=== PATIENT | female | born 1955 | race Caucasian/White ===

== ENCOUNTER → 2024-11-17 | Outpatient (CLI) | payer OTHER, SELFPAY ==
[2024-11-17 18:00] LABS: Hematocrit 32.0 % (37-47); Hemoglobin 10.2 g/dL (12.0-15.0); Mean Corp Hgb Conc 31.9 g/dL (32-36); Mean Corpuscular Volume 94.4 fL (81-99); Mean Platelet Vol. 12.6 fl (6.2-12.0); Platelet Count 108 K/mm3 (150-450); RBC Distribution Width CV 16.5 % (11.6-14.6); RBC Distribution Width SD 57.1 fl (35.1-43.9); Red Blood Count 3.39 M/mm3 (4.2-5.4); White Blood Count 6.7 K/mm3 (4.4-11.0)
[2024-11-17 18:06] LABS: Prothrombin Time (Protime)PT. 13.2 SECONDS (11.7-14.9)
[2024-11-17 18:07] LABS: Partial Thromboplast Time 33.8 Seconds (24.1-36.2)
[2024-11-17 18:25] LABS: AST(SGOT) 110 U/L (<=31); Alanine Aminotransfer ALT/SGPT 97 U/L (<=34); Albumin, Serum 3.7 g/dL (3.4-4.8); Alkaline Phosphatase 131 U/L (35-104); BUN 39 mg/dL (4-19); BUN/Creat Ratio 18.6 RATIO (10-20); Calcium,Total 11.9 mg/dL (7.6-11.0); Globulin 3.2 g/dL (2.2-4.2); Glucose 106 mg/dL (70-99)
[2024-11-17 18:26] LABS: Anion Gap 16 (5-15); CRP 128.00 mg/L (0.0-3.0); Carbon Dioxide 26.0 mmol/L (21.0-32.0); Chloride 100 mmol/L (98-108); Potassium 3.5 mmol/L (3.3-5.1)
[2024-11-19 15:09] LABS: Immunoglobulin A 193 mg/dL (87-352)
== END | disposition home or self-care (01) ==
LOC: MTLAB 14:48
PROVIDERS: PCP Nurse Practitioner Family; Referring Provider Internal Medicine Gastroenterology; Visit Provider Internal Medicine Gastroenterology
DX: K90.0 Celiac disease (principal); R16.0 Hepatomegaly, not elsewhere classified
CPT/HCPCS: 36415; 80053; 82784; 83516; 85027; 85610; 85652; 85730; 86140; 86255

== ENCOUNTER 2024-12-07 12:36 | Emergency (ER) | payer OTHER, SELFPAY ==
[2024-12-07 12:37] VITALS: BP 126/78; PULSE 101; RESP 18; TEMP 36.1; O2SAT 98
[2024-12-07 13:14] VITALS: BP 120/72; BP 123/73; BP 130/70; PULSE 93; PULSE 99
[2024-12-07 13:27] LABS: Prothrombin Time (Protime)PT. 13.5 SECONDS (11.7-14.9)
[2024-12-07 13:29] LABS: Hematocrit 30.5 % (37-47); Hemoglobin 9.4 g/dL (12.0-15.0); Immature Granulocytes Count 0.030 X10^3/uL (0.0-0.0); Mean Corp Hgb Conc 30.8 g/dL (32-36); Mean Corpuscular Volume 97.1 fL (81-99); Mean Platelet Vol. 10.7 fl (6.2-12.0); NRBC Flagged by Analyzer 0 % (0-5); POSITIVE COUNT YES; Platelet Count 88 K/mm3 (150-450); RBC Distribution Width CV 17.1 % (11.6-14.6); RBC Distribution Width SD 59.6 fl (35.1-43.9); Red Blood Count 3.14 M/mm3 (4.2-5.4); White Blood Count 4.6 K/mm3 (4.4-11.0)
[2024-12-07 13:30] LABS: Differential Indicated SCAN CRITERIA MET
[2024-12-07 13:37] VITALS: BP 127/68; PULSE 91; RESP 15; O2SAT 98
[2024-12-07 13:42] LABS: AST(SGOT) 121 U/L (<=31); Alanine Aminotransfer ALT/SGPT 99 U/L (<=34); Albumin, Serum 3.4 g/dL (3.4-4.8); Alkaline Phosphatase 189 U/L (35-104); Anion Gap 15 (5-15); BUN 28 mg/dL (4-19); BUN/Creat Ratio 22.6 RATIO (10-20); CRP 56.00 mg/L (0.0-3.0); Calcium,Total 10.6 mg/dL (7.6-11.0); Carbon Dioxide 25.6 mmol/L (21.0-32.0); Chloride 101 mmol/L (98-108); Estimated Creatinine Clearance 1.68 ml/min (50-250); Globulin 2.9 g/dL (2.2-4.2); Glucose 90 mg/dL (70-99); Potassium 3.9 mmol/L (3.3-5.1)
[2024-12-07 14:00] VITALS: BP 127/68; PULSE 93; RESP 24; O2SAT 96
[2024-12-07 14:39] VITALS: BP 127/68; PULSE 93; RESP 24; TEMP 36.1; O2SAT 96
[2024-12-07 15:00] VITALS: BP 131/72; PULSE 78; O2SAT 98
--- NOTE | 2024-12-07 15:02 | EX.ED.DYSGE1 ---
HPI History of Present Illness Chief Complaint: Fatigue Detail of Chief Complaint: Patient sent in for fatigue, weight loss, worsening renal function, abdomin Informant: patient Onset/Context/Timing Onset: Month(s) Context: Gradual Onset Timing: Intermittent and Waxes and wanes Quality: Abdominal distention, discomfort, and multiple other symptoms Location: Multiple Current Severity: Mild Maximum Severity: Moderate Worsened by: Nothing Relieved by: Nothing Associated Symptoms Associated Symptoms: HPI narrative Narrative Narrative: Patient is a 68-year-old woman. She has history of weight loss, night sweats, abdominal distention, portal hypertension, bilateral edema, stage IV kidney disease and left renal renal stone. She was sent in for her pain. She was seen at [facility] physicians. Patient is scheduled for an MRI this coming Saturday. Patient stated she was told she did have a hematology consult. There was a note attached to her chart. Apparently she was seen 2 weeks ago and there was concern for T-cell l lymphoma. Patient had unintentional weight loss. She complains of fatigue, abdominal bloating. She denies change in color, consistency or caliber of her stool. She denies frequency of bowel movements. She denies urologic symptoms. She denies dark-colored urine. She denies bone pain. She does not report night sweats. She denies headache, visual, ocular auditory symptoms. She has trouble with speech or swallowing. She denies chest pain, pressure, tightness or heaviness. She denies dyspnea or [place] exertion. Denies orthopnea or PND. She does report swelling of her ankles recently. Patient has no history of alcohol use or cirrhosis. Prior similar symptoms: Yes Recent Illness/Hospitalization: Yes (Seen by PCP approximately 2 weeks ago. Her creatinine at that time was faisal) [facility] Medical History Depression Emphysema lung COPD (chronic obstructive pulmonary disease) Postmenopausal Lymph node enlargement IBS (irritable bowel syndrome) Positive colorectal cancer screening using Cologuard test Anemia Acute distention of stomach Abdominal pain Celiac disease Hypertension Vitamin D deficiency Splenomegaly Home Medications ?Medication ?Instructions ?Recorded ?Last Taken ?Type cholecalciferol (vitamin D3) 1,250 1,250 mcg PO QMONTH BONE [employer] 11/26/24 11/25/24 History mcg (50,000 unit) capsule lisinopril 10 1 tab PO QDAY BLOOD PRESSURE 11/26/24 12/07/24 History mg-hydrochlorothiazide 12.5 mg tablet vitamin B complex 1 tab PO QDAY FOR ENERGY 11/26/24 12/06/24 History mv-mn [id number] 1 tab PO DAILY SUPPLEMENT 12/07/24 12/06/24 History pantoprazole 40 mg tablet,delayed 40 mg PO DAILY STOMACH 12/07/24 12/06/24 History release Allergy/AdvReac Type Severity Reaction Status Date / Time moxifloxacin (From Avelox) Allergy Unknown unknown Verified 12/07/24 12:37 terbinafine Allergy Unknown rash Verified 12/07/24 12:37 Family History Father Alcohol abuse Mother Heart disease Depression Social History Smoking Status: Current every day smoker tobacco type: cigarettes alcohol intake: never ROS ROS ED Constitutional Constitutional ED: Reports sweats and weight loss; Denies chills, fever(s) or subjective Eyes Eyes: Denies blurry vision, change in vision or diplopia ENT ENT ED: Denies ear pain, rhinorrhea or sore throat Cardiovascular Cardiovascular: Denies chest pain, orthopnea, palpitations, paroxysmal nocturnal dyspnea or racing heartbeat Respiratory/Chest Respiratory/Chest: Reports cough and other Details: Patient is 1/4 pack/day smoker. She does and [place] nonproductive cough. ; Denies dyspnea, dyspnea on exertion, orthopnea, paroxysmal nocturnal dyspnea or sputum Gastrointestinal Gastrointestinal: Reports abdominal pain; Denies constipation, diarrhea, melena, nausea or vomiting Genitourinary Genitourinary ED: Denies dysuria, hematuria or urinary frequency Musculoskeletal Musculoskeletal: Denies arthralgias, back pain, myalgias or neck pain Integumentary Denies rash Neurologic Neurologic: Reports weakness; Denies headache(s) or paresthesias Endocrine Endocrinology: Denies cold intolerance or heat intolerance Hematologic/Lymphatic Hematologic/Lymphatic: Reports systems reviewed and no addt'l complaints, except as documented EXAM Physical Exam Const Vital Signs: 12/07/24 12:37 12/07/24 12:47 12/07/24 13:14 Temperature 97 F L Temperature Source Temporal Pulse Rate 101 H Pulse Rate [Lying] 93 Pulse Rate [Sitting (for 1 minute prior to obtaining)] 99 Pulse Rate [Standing (for 1 minute prior to obtaining)] 99 Respiratory Rate 18 Respiratory Effort Normal Non-Labored Respiratory Pattern Normal Blood Pressure 126/78 H Blood Pressure [Lying] 130/70 H Blood Pressure [Sitting (for 1 minute prior to obtaining)] 120/72 Blood Pressure [Standing (for 1 minute prior to obtaining)] 123/73 H Blood Pressure Mean 94 Blood Pressure Mean [Lying] 90 Blood Pressure Mean [Sitting (for 1 minute prior to obtaining)] 88 Blood Pressure Mean [Standing (for 1 minute prior to obtaining)] 89 Pulse Ox 98 Oxygen Delivery Method Room Air 12/07/24 13:37 12/07/24 14:00 12/07/24 14:39 Temperature 97 F L Temperature Source Pulse Rate 91 93 93 Pulse Rate [Lying] Pulse Rate [Sitting (for 1 minute prior to obtaining)] Pulse Rate [Standing (for 1 minute prior to obtaining)] Respiratory Rate 15 24 H 24 H Respiratory Effort Respiratory Pattern Blood Pressure 127/68 H 127/68 H 127/68 H Blood Pressure [Lying] Blood Pressure [Sitting (for 1 minute prior to obtaining)] Blood Pressure [Standing (for 1 minute prior to obtaining)] Blood Pressure Mean 87 87 87 Blood Pressure Mean [Lying] Blood Pressure Mean [Sitting (for 1 minute prior to obtaining)] Blood Pressure Mean [Standing (for 1 minute prior to obtaining)] Pulse Ox 98 96 96 Oxygen Delivery Method Room Air Room Air 12/07/24 15:00 Temperature Temperature Source Pulse Rate 78 Pulse Rate [Lying] Pulse Rate [Sitting (for 1 minute prior to obtaining)] Pulse Rate [Standing (for 1 minute prior to obtaining)] Respiratory Rate Respiratory Effort Respiratory Pattern Blood Pressure 131/72 H Blood Pressure [Lying] Blood Pressure [Sitting (for 1 minute prior to obtaining)] Blood Pressure [Standing (for 1 minute prior to obtaining)] Blood Pressure Mean 91 Blood Pressure Mean [Lying] Blood Pressure Mean [Sitting (for 1 minute prior to obtaining)] Blood Pressure Mean [Standing (for 1 minute prior to obtaining)] Pulse Ox 98 Oxygen Delivery Method Room Air Positive well nourished and well developed Constitutional Narrative: Patient appears pale. She is thin. She appears in no obvious distress. General Appearance ED: well developed and pallor HEENT Reports moist mucous membranes HEENT Narrative: Head is atraumatic normocephalic. Ears normal. Posterior pharynx is normal Eyes PERRL and EOMs intact bilaterally Eyes Narrative: Conjunctive is slightly pale. There is slight pink noted. General Eye ED: Negative for scleral icterus Neck no lymphadenopathy, supple and no JVD Chest Wall inspection of chest normal and palpation of chest normal Resp normal respiratory effort and clear to auscultation bilaterally Cardio regular rate, regular rhythm, S1 normal heart sound, S2 normal heart sound and no murmurs GI non-distended and no masses; Negative for non-tender GI Narrative: Patient has diffuse tenderness. I do not appreciate hepatosplenomegaly. There is no guarding or peritoneal findings. Inspection: Negative for abdominal distention Auscultation: hypoactive bowel sounds Palpation: soft Back/Spine no CVA tenderness Extremity General Extremety ED: Yes edema General Extremity: edema Neuro oriented x3 and CN's II-XII intact bilaterally Sensorium / Orientation: alert Psych Mood & Affect: depressed Skin no rashes or lesions noted, no wounds and No skin turgor normal General Skin Exam: pallor; Negative for jaundice MDM MDM MDM Narrative Medical decision making narrative: Differential diagnosis is abdominal pain of unknown etiology, malignancy, she does have portal hypotension. Clinically she does not have ascites. Clinically she appears anemic. Will obtain CBC to assess H&H as well as white count. Competence of metabolic panel to assess liver enzymes and electrolytes as well as renal function. Show she had elevated inflammatory markers will obtain and compare to prior. History & Record Review Additional record(s) reviewed:: Prior labs Lab Data Attestation: I reviewed the patient's lab results. Lab results narrative: CBC reveals normocytic anemia with an H&H of 9.4 and 30.5 which is slightly lower than what was noted November. Comprehensive metabolic panel reveals slight elevation of BUN and creatinine of 28 and 1.25 with an estimated GFR 47. This is an improvement from prior. BUN to creatinine ratio slight elevated 22-1. AST and ALT are elevated respectively at 121 and 99. C-reactive proteins elevated and essentially baseline for her. Labs: Laboratory Results - last 24 hr 12/07/24 13:05 WBC 4.6 RBC 3.14 L Hgb 9.4 L Hct 30.5 L MCV 97.1 MCH 29.9 MCHC 30.8 L RDW Std Deviation 59.6 H RDW Coeff of Jeffery 17.1 H Plt Count 88 L MPV 10.7 Immature Gran % (Auto) 0.700 Neut % (Auto) 63.7 Lymph % (Auto) 17.7 L Rooks % (Auto) 15.3 H Eos % (Auto) 1.1 Baso % (Auto) 1.5 H Absolute Neuts (auto) 2.9 Absolute Lymphs (auto) 0.81 L Nucleated RBC % 0 Platelet Estimate MOD DEC ESR 8 PT 13.5 INR 1.0 Sodium 142 Potassium 3.9 Chloride 101 Carbon Dioxide 25.6 Anion Gap 15 BUN 28 H Creatinine 1.25 H Estim Creat Clear Calc 1.68 L* Est GFR (MDRD) Non-Af 47 L BUN/Creatinine Ratio 22.6 H Glucose 90 Calcium 10.6 Total Bilirubin 0.73 AST 121 H ALT 99 H Alkaline Phosphatase 189 H C-React Prot Ext Range 56.00 H Total Protein 6.3 Albumin 3.4 Globulin 2.9 Albumin/Globulin Ratio 1.2 Treatment and Re-Evaluation :: Patient was informed since her BUN/creatinine have improved, there is no significant change in her H&H and she is hemodynamically stable her workup can be done as an outpatient and she should keep her scheduled appointment for MRI and depending on results will need referral to hematology oncology or GI versus general surgery. Patient thought she was going to be seen by hematology in the emergency department. Patient was informed since her labs are not not significant changed she does not meet criteria for admission and that her workup can be completed as an outpatient and that that her practitioner can make appropriate arrangements pending results of MRI. Discharge Plan Triage Chief Complaint: Fatigue ED Provider: Crispin Subramanian Dx/Rx/DC Orders Clinical Impression: Abdominal pain of unknown cause, Chronic renal insufficiency, Anemia, Acute prerenal azotemia, Elevated liver enzymes, Unintentional weight loss of 5% body weight or less within 1 month, Night sweats, Hypertension, Hypertension, portal, Lymphedema of both lower extremities Instructions: ED Abdominal Pain Unkn Cause Fem Prescriptions: No Action vitamin B complex Tablet 1 tab PO QDAY lisinopril-hydrochlorothiazide 10-12.5 mg tablet 1 tab PO QDAY cholecalciferol (vitamin D3) 1,250 mcg (50,000 unit) capsule 1,250 mcg PO QMONTH pantoprazole 40 mg tablet,delayed release (DR/EC) 40 mg PO DAILY mv-mn [id number] [Centrum ] 1 tab PO DAILY Primary Care Provider: Vidal Ling NP Referrals: Vidal Ling NP, DATA COORDINATOR-C [Primary Care Provider, Family Practice] - 1-2 Weeks Activity Restrictions/Additional Instructions: Keep appointment for outpatient MRI. Print Language: Sinhala Disposition Disposition: Home, Self Care Discharge Date/Time: 12/07/24 15:05
== END 2024-12-07 15:05 | disposition home or self-care (01) ==
PROVIDERS: Emergency Provider Emergency Medicine; PCP Nurse Practitioner Family; Visit Provider Emergency Medicine
DX: R10.9 Unspecified abdominal pain (principal); K76.6 Portal hypertension; R63.4 Abnormal weight loss; R53.83 Other fatigue; R14.0 Abdominal distension (gaseous); D63.1 Anemia in chronic kidney disease; F17.210 Nicotine dependence, cigarettes, uncomplicated; R05.9 Cough, unspecified; I89.0 Lymphedema, not elsewhere classified; R61 Generalized hyperhidrosis
CPT/HCPCS: 80053; 85025; 85610; 85652; 86140; 99285; A4216

== ENCOUNTER → 2024-12-29 | Outpatient (CLI) | payer OTHER, SELFPAY ==
[2024-12-29 11:48] LABS: Pathology Sent to OSU SEE PATHOLOGY REPORT
== END | disposition home or self-care (01) ==
LOC: LABSPEC 11:31
PROVIDERS: PCP Nurse Practitioner Family; Referring Provider Surgery; Visit Provider Surgery
DX: R16.1 Splenomegaly, not elsewhere classified (principal); D64.9 Anemia, unspecified; R59.9 Enlarged lymph nodes, unspecified

== ENCOUNTER → 2025-01-06 | Outpatient (CLI) | payer OTHER, SELFPAY ==
--- NOTE | 2025-01-06 16:41 | CT_ITS ---
PROCEDURE: CT/Chest WITH Contrast
== END | disposition home or self-care (01) ==
LOC: CT 16:41
PROVIDERS: PCP Nurse Practitioner Family; Referring Provider Internal Medicine Hematology & Oncology; Visit Provider Internal Medicine Hematology & Oncology
DX: R59.1 Generalized enlarged lymph nodes (principal); R16.1 Splenomegaly, not elsewhere classified
CPT/HCPCS: 71260; Q9967

== ENCOUNTER 2025-01-21 10:31 | Day surgery (SDC) | payer OTHER, SELFPAY ==
--- NOTE | 2025-01-20 13:55 | PAT.ANESEVAL ---
Pre-Assessment Diagnosis/Proposed Procedure Planned Operative Procedure(s): (R) Insertion, Vascular Port right poss left Anesthesia History Anesthesia History - molecular modeler: Anesthesia History - molecular modeler Hx Hospitalization No 01/20/25 09:07 Any Problems With Anesthesia No 01/20/25 09:07 Cholinesterase deficiency No 01/20/25 09:07 You/Your Family Experience No 01/20/25 09:07 fever (hyperthermia) with Relationship Recent Exposure to Contagious Disease Does patient have nerve No 01/20/25 09:07 stimulator Patient instructed to have device shut off --Does patient have Pacemaker or ICD? When Was Last Pacemaker Check QUESTION #4 FULL TEXT: You/Your Family Experience fever (hyperthermia) with Anesthesia Last Oral Intake Last Oral intake: Last Oral Intake NPO since Meds taken in AM with sips of water? Meds patient instructed to take am of surgery PONV PONV - molecular modeler: PONV - molecular modeler Female Yes 01/20/25 09:07 HX of Motion Sickness No 01/20/25 09:07 HX of N/V After Surgery No 01/20/25 09:07 Non-Smoker Yes 01/20/25 09:07 Duration of Surgery greater No 01/20/25 09:07 than 60 minutes Number of Risk Factors 2 01/20/25 09:07 PONV Score Moderate Risk 01/20/25 09:07 Height & Weight Height & Weight: Anesthesia: Height & Weight Height 5 ft 6 in 01/15/25 12:39 Respiratory Assessment Respiratory Assessment - molecular modeler: Respiratory Tract Infection Hx - molecular modeler Hx Respiratory Tract Infection No 01/20/25 09:07 STOP Sleep Apnea STOP Sleep Apnea - molecular modeler: STOP Sleep Apnea - molecular modeler Hx Hypertension Yes: PT STATES DR HAD HER 01/20/25 09:07 STOP MEDS Hx Sleep Apnea No 01/20/25 09:07 CPAP BIPAP Do you snore loudly (louder No 01/20/25 09:07 than talking or can be heard Do you often feel tired/ No 01/20/25 09:07 fatigued/ sleepy during daytime? Has anyone observed you stop No 01/20/25 09:07 breathing during sleep? STOP Results Negative 01/20/25 09:07 QUESTION #5 FULL TEXT : Do you snore loudly (louder than talking or can be heard through closed doors)? Tobacco Use History Tobacco Use History - molecular modeler: Tobacco Use History - molecular modeler Tobacco Use Smoking Status Former smoker 01/20/25 09:07 Hx Tobacco Use Yes 01/20/25 09:07 Years Smoking Packs Smoked per Day Smoking Cessation Date was Yes - quit smoking within 15 01/20/25 09:07 within the last 15 years years Hx Smoking Cessation Date Hx Smoking Cessation No 01/20/25 09:07 Counseling Hematologic Medial History Hematologic Hx - molecular modeler: Hematologic Medical Hx - bronc breaker Hx of Blood Transfusion No 01/20/25 09:07 Hx of Transfusion in last 3 No 01/20/25 09:07 Months Date of Last Transfusion (if within last 3 months) Ever experience any problems No 01/20/25 09:07 with transfusion(s)? Specify any problems Hx of Preganancy in last 3 N/A 01/20/25 09:07 Months Nurse Filling Out Transfusion NBUCHER 01/20/25 09:07 & Questions: Date: 01/20/25 01/20/25 09:07 Time: 09:09 01/20/25 09:07 Patient unable to answer at this time (ie. confused, unrespo /Reproduction History /Reproductive History - molecular modeler: /Reproductive Hx- molecular modeler Hx Now No 01/20/25 09:07 Gestational Age (in weeks): EDC: Hx Hx Para Hx Section SAB No 01/20/25 09:07 Does the father of the baby or his family experience fever w Father of the baby Malignant Hypertension history comment Active Medications Active Medications: Current Medications Generic Name Dose Route Start Last Admin Trade Name Freq PRN Reason Stop Dose Admin Cefazolin Sodium 2 gm/ Sodium 110 mls @ 200 mls/hr 01/21/25 07:00 Chloride IV 01/21/25 07:32 INTRAOP ONE [facility] Medical History (Updated 01/20/25 @ 09:16 by Lore Willson) Wears glasses Cancer History of renal disease Heartburn Gastric reflux Former smoker History of edema Hypokalemia Encounter for education 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 Depression Emphysema lung COPD (chronic obstructive pulmonary disease) Postmenopausal IBS (irritable bowel syndrome) Positive colorectal cancer screening using Cologuard test Anemia Acute distention of stomach Abdominal pain Hypertension Vitamin D deficiency Splenomegaly Home Medications ?Medication ?Instructions ?Recorded ?Last Taken ?Type cholecalciferol (vitamin D3) 1,250 1,250 mcg PO QMONTH [facility] 11/26/24 11/25/24 History mcg (50,000 unit) capsule vitamin B complex 1 tab PO QDAY FOR ENERGY 11/26/24 12/06/24 History mv-mn [id number] 1 tab PO DAILY SUPPLEMENT 12/07/24 12/06/24 History pantoprazole 40 mg tablet,delayed 40 mg PO DAILY STOMACH 12/07/24 12/06/24 History release allopurinol 300 mg tablet 300 mg PO QDAY #7 tabs 01/14/25 Unknown Rx lidocaine-prilocaine 2.5 %-2.5 % 1 applic topical ONCE PRN port 01/14/25 Unknown Rx topical cream access 30 days #30 grams ondansetron 8 mg disintegrating 8 mg PO Q8H PRN nausea and 01/14/25 Unknown Rx tablet vomiting #30 tabs potassium chloride 20 mEq 20 meq PO DAILY #3 tabs 01/14/25 Unknown Rx tablet,extended release(part/cryst) Allergy/AdvReac Type Severity Reaction Status Date / Time moxifloxacin (From Avelox) Allergy Unknown unknown Verified 01/20/25 09:06 terbinafine Allergy Unknown rash Verified 01/20/25 09:06 Family History Father Alcohol abuse Mother Heart disease Depression Surgical History (Updated 01/20/25 @ 09:16 by Lore Willson) History of dental surgery Social History Smoking Status: Former smoker Tobacco: How many years used: 50 alcohol intake: never substance use type: does not use Audit: Pertinent Findings Pertinent Findings Additional pertinent findings: January 11, 2025. Hemoglobin is 10.2. Potassium is 3.2. Recommendation Anesthesia Recommendation Anesthesia recommendation: OPTIMIZED for anesthesia
[2025-01-21] VITALS (8 sets, daily range): BP systolic 86–114; BP diastolic 48–63; PULSE 65–103; RESP 16–18; TEMP 36–37.1; O2SAT 93–97; BMI 19.6
--- NOTE | 2025-01-21 10:44 | PRE.ANES_ITS ---
ASA Classification* ASA Classification ASA Classification: 3 Assessment & Plan Anesthesia* Anesthesia Assessment Anesthesia Assessment: Discussed sedation and/or anesthesia options, risks, benefits, and alternatives with patient/parents/legal guardian/POA. Questions invited. The patient/parents/legal guardian/POA seems to understand and agrees to proceed with anesthesia plan. Reviewed the physical assessment, medical history, allergy history and patient home medications list prior to surgery/procedure/anesthetic and documented any changes. Performed airway and anesthesia risk assessments. Anesthesia Type Anesthesia Type: MAC Anesthesia Focused Assessment* Airway Assessment Mouth opens: >3 cm Mallampati Score: II Labs Anesthesia Preop lab: CBC WBC, (4.4-11.0) 4.1 K/mm3 L 01/11/25, 14: RBC, (4.2-5.4) 3.20 M/mm3 L 01/11/25, 14:06 Hgb, (12.0-15.0) 10.2 g/dL L 01/11/25, 14:06 Hct, (37-47) 32.9 % L 01/11/25, 14:06 Plt Count, (150-450) 74 K/mm3 L 01/11/25, 14:06 CHEMISTRY Potassium, (3.3-5.1) 3.2 mmol/L L 01/14/25, 14:26 Sodium, (133-145) 144 mmol/L 01/14/25, 14:26 Magnesium, (1.5-2.2) 1.8 mg/dL 12/22/24, 15:34 Phosphorus, (2.7-4.5) 2.8 mg/dL 12/22/24, 15:34 BUN, (4-19) 24 mg/dL H 01/14/25, 14:26 Creatinine, (0.70-1.20) 1.15 mg/dL 01/14/25, 14:26 Glucose, (70-99) 81 mg/dL 01/14/25, 14:26 COAG PT, (11.7-14.9) 13.5 SECONDS 12/07/24, 13:05 Pre-Assessment Diagnosis/Proposed Procedure Planned Operative Procedure(s): (R) Insertion, Vascular Port right poss left Anesthesia History Anesthesia History - manager research and development: Anesthesia History - manager research and development Hx Hospitalization No 01/20/25 09:07 Any Problems With Anesthesia No 01/20/25 09:07 Cholinesterase deficiency No 01/20/25 09:07 You/Your Family Experience No 01/20/25 09:07 fever (hyperthermia) with Relationship Recent Exposure to Contagious Disease Does patient have nerve No 01/20/25 09:07 stimulator Patient instructed to have device shut off --Does patient have Pacemaker or ICD? When Was Last Pacemaker Check QUESTION #4 FULL TEXT: You/Your Family Experience fever (hyperthermia) with Anesthesia Last Oral Intake Last Oral intake: Last Oral Intake NPO since Meds taken in AM with sips of water? Meds patient instructed to take am of surgery PONV PONV - manager research and development: PONV - manager research and development Female Yes 01/20/25 09:07 HX of Motion Sickness No 01/20/25 09:07 HX of N/V After Surgery No 01/20/25 09:07 Non-Smoker Yes 01/20/25 09:07 Duration of Surgery greater No 01/20/25 09:07 than 60 minutes Number of Risk Factors 2 01/20/25 09:07 PONV Score Moderate Risk 01/20/25 09:07 Height & Weight Height & Weight: Anesthesia: Height & Weight Height 5 ft 6 in 01/15/25 12:39 Respiratory Assessment Respiratory Assessment - manager research and development: Respiratory Tract Infection Hx - manager research and development Hx Respiratory Tract Infection No 01/20/25 09:07 STOP Sleep Apnea STOP Sleep Apnea - manager research and development: STOP Sleep Apnea - manager research and development Hx Hypertension Yes: PT STATES DR HAD HER 01/20/25 09:07 STOP MEDS Hx Sleep Apnea No 01/20/25 09:07 CPAP BIPAP Do you snore loudly (louder No 01/20/25 09:07 than talking or can be heard Do you often feel tired/ No 01/20/25 09:07 fatigued/ sleepy during daytime? Has anyone observed you stop No 01/20/25 09:07 breathing during sleep? STOP Results Negative 01/20/25 09:07 QUESTION #5 FULL TEXT : Do you snore loudly (louder than talking or can be heard through closed doors)? Tobacco Use History Tobacco Use History - manager research and development: Tobacco Use History - manager research and development Tobacco Use Smoking Status Former smoker 01/20/25 09:07 Hx Tobacco Use Yes 01/20/25 09:07 Years Smoking Packs Smoked per Day Smoking Cessation Date was Yes - quit smoking within 15 01/20/25 09:07 within the last 15 years years Hx Smoking Cessation Date Hx Smoking Cessation No 01/20/25 09:07 Counseling Hematologic Medial History Hematologic Hx - manager research and development: Hematologic Medical Hx - manager apple Hx of Blood Transfusion No 01/20/25 09:07 Hx of Transfusion in last 3 No 01/20/25 09:07 Months Date of Last Transfusion (if within last 3 months) Ever experience any problems No 01/20/25 09:07 with transfusion(s)? Specify any problems Hx of Preganancy in last 3 N/A 01/20/25 09:07 Months Nurse Filling Out Transfusion NBUCHER 01/20/25 09:07 & Questions: Date: 01/20/25 01/20/25 09:07 Time: 09:01/20/25 09:07 Patient unable to answer at this time (ie. 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 Depression Emphysema lung COPD (chronic obstructive pulmonary disease) Postmenopausal IBS (irritable bowel syndrome) Positive colorectal cancer screening using Cologuard test Anemia Acute distention of stomach Abdominal pain Hypertension Vitamin D deficiency Splenomegaly Home Medications ?Medication ?Instructions ?Recorded ?Last Taken ?Type cholecalciferol (vitamin D3) 1,250 1,250 mcg PO QMONTH [facility] 11/26/24 11/25/24 History mcg (50,000 unit) capsule vitamin B complex 1 tab PO QDAY FOR ENERGY 12/06/24 History mv-mn [id number] 1 tab PO DAILY SUPPLEMEN T 12/07/24 12/06/24 History pantoprazole 40 mg tablet,delayed 40 mg PO DAILY STOMA CH 12/07/24 12/06/24 History release allopurinol 300 mg tablet 300 mg PO QDAY #7 tabs 01/14 Unknown Rx lidocaine-prilocaine 2.5 %-2.5 % 1 applic topical ONCE PRN port 01/14/25 Unknown Rx topical cream access 30 days #30 grams ondansetron 8 mg disintegrating 8 mg PO Q8H PRN nausea and 01/14/25 Unknown Rx tablet vomiting #30 tabs potassium chloride 20 mEq 20 meq PO DAILY #3 tabs 01/02 05/26 Unknown Rx tablet,extended release(part/cryst) Allergy/AdvReac Type Severity Reaction Status Date / Time moxifloxacin (From Avelox) Allergy Unknown unknown Verified 01/20/25 09:06 terbinafine Allergy Unknown rash Verified 01/20/25 09:06 Family History Father Alcohol abuse Mother Heart disease Depression Surgical History History of dental surgery Social History Smoking Status: Light Smoker (<10/day) Tobacco: How many years used: 50 alcohol intake: never substance use type: does not use Review of Systems (Anesthesia) ROS Narrative System reviewed and no additional complaints, except as documented.
[2025-01-21] MEDS: Lactated Ringers 1,000 ML 15 ML IV (11:22)
--- NOTE | 2025-01-21 11:35 | PCM.HP.BLA ---
History and Physical Date of Admission: 01/21/25 Date of Service: 01/15/25 MR#: [id number] Acct: [id number] Name: ESTELLA MIRELES Rep #: [id number] : 1955 Provider: Dr. Cassy Andrea MD Age/Sex: 69/F Location: [facility] Status: Signed Intake Vital Signs 01/11/2515:03 01/14/2514:54 01/16/2512:39 Height 5 ft 6 in 5 ft 6 in 5 ft 6 in Weight: 110 lb 7 oz 114 lb 6 oz BMI 17.8 18.4 BP 80/51 L 105/69 112/72 Blood Pressure Location Lt brachial Rt brachial Lt brachial Position Sitting Sitting Sitting Respiration 16 18 17 Pulse 82 91 97 Pulse Source Monitor Monitor Monitor Temp 97.6 F L 97.9 F 97.2 F L Temp Source Temporal Pulse Oximetry (%) 93 97 97 Oxygen Delivery Method room air room air room air Intake Visit Reasons: PORT PLACEMENT Chief Complaint: port placement Allergies moxifloxacin (From Avelox) Allergy (Unknown, Verified 01/15/25 12:39) unknown terbinafine Allergy (Unknown, Verified 01/15/25 12:39) rash Medications ?Medication ?Instructions ?Recorded ?Confirmed ?Type cholecalciferol (vitamin D3) 1,250 1,250 mcg PO QMONTH [facility] 11/26/24 01/15/25 History mcg (50,000 unit) capsule vitamin B complex 1 tab PO QDAY FOR ENERGY 11/26/24 01/15/25 History mv-mn [id number] 1 tab PO DAILY SUPPLEMENT 12/07/24 01/15/25 History pantoprazole 40 mg tablet,delayed 40 mg PO DAILY STOMACH 12/07/24 01/15/25 History release allopurinol 300 mg tablet 300 mg PO QDAY #7 tabs 01/14/25 01/15/25 Rx lidocaine-prilocaine 2.5 %-2.5 % 1 applic topical ONCE PRN port 01/14/25 01/15/25 Rx topical cream access 30 days #30 grams ondansetron 8 mg disintegrating 8 mg PO Q8H PRN nausea and 01/14/25 01/15/25 Rx tablet vomiting #30 tabs potassium chloride 20 mEq 20 meq PO DAILY #3 tabs 01/14/25 01/15/25 Rx tablet,extended release(part/cryst) Have you fallen in the past year?: No PFSH Medical History Hypokalemia Encounter for education 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 Depression Emphysema lung COPD (chronic obstructive pulmonary disease) Postmenopausal IBS (irritable bowel syndrome) Positive colorectal cancer screening using Cologuard test Anemia Acute distention of stomach Abdominal pain Hypertension Vitamin D deficiency Splenomegaly Family History Father Alcohol abuse Mother Heart disease Depression Social History Smoking Status: Light Smoker (<10/day) Tobacco: How many years used: 50 alcohol intake: never substance use type: does not use HPI HPI HPI: 69-year-old female presents for port placement due to mantle cell lymphoma. Patient's treatment plan started on 01/25/2025. ROS General General: Yes fatigue; No weight change, appetite, colon cancer, breast cancer or weakness HEENT HEENT: No difficulty swallowing, eye injury, eye surgery, swollen glands or hoarseness Endo Endocrine: No thyroid disease, diabetes mellitus, thyroid cancer, Hair loss, heat intolerance or cold intolerance Skin Skin: No rash or changing moles Musc Musculoskeletal: Yes back problems; No arthritis, rheumatoid arthritis, gout or joint pain Cardio Cardiovascular: Yes high blood pressure; No murmur, pacemaker, heart disease, atrial fibrillation, heart attack, heart stent, palpitations, shortness of breath with exertion or chest pain Psych Psychiatric: Yes depression and anxiety; No hearing voices Resp Respiratory: No shortness of breath, No sleep apnea, No cough, Yes COPD, No asthma, No emphysema and No wheezing Gastro Gastrointestinal: Yes abdominal pain, Yes nausea or vomiting, No diarrhea, No constipation, No blood in stool, No acid reflux, No hemorrhoids, No ulcers, No gallbladder problem and No black,tarry stools Tay Hematologic: No blood thinners, No blood disorders, No bleeding, Yes anemia and No blood clots Neuro Neurologic: No system reviewed and no additional complaints, except as documented, No as per HPI, No abnormal gait, No abnormal hearing, No abnormal movements, No abnormal speech, No behavioral changes, No burning sensations, No confusion, No convulsions, No disequilibrium, No dizziness, No localized weakness, No frequent falls, No headache(s), No lack of coordination, No loss of vision, No memory loss, No numbness, No other visual disturbances, No radicular pain, No restless legs, No sensory deficit, No syncope, No tingling, No tremor(s), No weakness and No other Exam Const General: cooperative, comfortable, no acute distress and frail appearing [facility] Head: normocephalic and atraumatic Neck Neck: supple Chest Other: Palpation of bilateral upper chest Resp Effort & Inspection: normal respiratory effort Cardio Rate: regular rate Skin General: no rashes or lesions noted Extrem General: normal to inspection Psych Mental Status: mental status grossly normal Attitude: cooperative Assessment and Plan Assessment and Plan (1) Encounter for insertion of venous access port: Status: Acute (2) Mantle cell lymphoma: Status: Chronic Qualifiers: Lymphoma site: multiple regions Qualified Code(s): C83.18 - Mantle cell lymphoma, lymph nodes of multiple sites Plan I have discussed above with the patient- Port-a-Cath placement. Right possible left IJ Patient has been counseled as to the risks/benefits of the procedure. I have explained the risks of the surgery, including but not limited to: infection, bleeding, injury to any blood vessels/nerves, injury to lungs (such as pneumothorax or hemothorax and need for chest tube), not having any access, nonfunctioning of port due to thrombosis, infection of port, etc. the patient understands and agrees to proceed. I have answered all the patient's questions to the patient?s satisfaction and the patient has no further questions. Cassy Andrea M.D. Pager: [phone] [facility] [address] [place] [address], [facility], [address] [place] [address] Office: [phone] Coding Level of Care Code Off vis,est,level 3 Diagnoses Encounter for insertion of venous access port Z45.2 Mantle cell lymphoma of lymph nodes of multiple regions C83.18 Lymphoma site: multiple regions Clinical Quality Measures Falls Risk Screening/Assistive Devices Have you fallen in the past year?: No 01/16/25 0957 <Electronically signed by Cassy Andrea MD> Date Cassy Andrea MD
--- NOTE | 2025-01-21 11:42 | SUR.PREOP ---
Patient present for port placement today, noted significant pitting edema in b/l legs, 4+ dr. martines aware, okay to proceed with surgery. patient notes the edema is painful and limits mobility.
[2025-01-21] MEDS: Lactated Ringers 250 ML IV (12:21)
[2025-01-21 12:22] LABS: AST(SGOT) 78 U/L (<=31); Alanine Aminotransfer ALT/SGPT 38 U/L (<=34); Albumin, Serum 2.9 g/dL (3.4-4.8); Alkaline Phosphatase 216 U/L (35-104); Anion Gap 19 (5-15); BUN 23 mg/dL (4-19); BUN/Creat Ratio 22.3 RATIO (10-20); Calcium,Total 9.9 mg/dL (7.6-11.0); Carbon Dioxide 21.2 mmol/L (21.0-32.0); Chloride 104 mmol/L (98-108); Estimated Creatinine Clearance 45.12 ml/min (50-250); Globulin 2.2 g/dL (2.2-4.2); Glucose 76 mg/dL (70-99); Potassium 3.9 mmol/L (3.3-5.1)
[2025-01-21] MEDS: Cefazolin 1 GM/5 ML Vial 2 GM IV (12:23)
[2025-01-21] MEDS: Midazolam 2 MG/2 ML Syringe IV (12:25)
[2025-01-21] MEDS: Lidocaine 1% (5 ml sdv) 5 ML Vial 4 ML IV (12:25)
[2025-01-21] MEDS: Lidocaine 1% /Epi 1:100 (20ml) 20 ML Vial (12:39)
--- NOTE | 2025-01-21 12:59 | OP.PCM_ITS ---
Operative Report (Standard) Operative Information Date of Procedure: 01/21/25 Pre-Operative Diagnosis: Z45.2, mantle cell lymphoma Post-Operative Diagnosis: Same Surgery/Procedure Performed: Placement of right IJ Port-A-Cath, Use of ultrasound, Use of fluoroscopy flight attendant ramp: No Type of Anesthesia: Local MAC RN Documented Start/Stop Times: Operation Date: 01/21/25 12:15 Case Time Into Pre-Op 01/21/25 10:44 Anesthesia Start 01/21/25 12:20 Into Room 01/21/25 12:20 Procedure Start 01/21/25 12:33 Procedure End 01/21/25 12:55 Anesthesia End 01/21/25 12:59 Out of Room 01/21/25 12:59 Into Recovery 01/21/25 13:00 Out of Recovery 01/21/25 13:16 Into Phase II Recovery 01/21/25 13:17 Out of Phase II 01/21/25 14:22 Procedure Start Time: 12:33 Procedure Stop Time: 12:55 Select all DRAINS/GRAFTS/IMPLANTS that apply: Implanted device Implanted device details: [employer] PowerPort isp M.R.I. 6Fr Lot [id number] Estimated Blood Loss: < 10 cc Specimen collected: No Description of surgery: After informed consent was given, the patient was brought to the operating room and placed in the supine position. Appropriate time out protocol was followed. Patient was then given IV conscious sedation for anesthesia. The patient's right upper chest and neck were then prepped with a surgical skin preparation and sterile surgical drapes were placed. After proper landmarks were ascertained, the skin at the upper right chest area was then infiltrated with 1:1 mixture of 1% lidocaine with epinephrine and 0.5% marcaine. A needle trocar was then inserted into the right internal jugular vein with ultrasound guidance-multiple vessels were viewed with u/s and the right IJ was chosen-- and there was good aspiration of venous blood. A wire was then threaded into the needle trocar and this was visualized under fluoroscopy to ensure that the wire was in the superior vena cava. Once this was done, then the needle trocar was removed. A small skin juany was made with an 11 blade knife at the wire entrance site. The dilator with the introducer sheath attached was then placed over the wire into the right internal jugular vein via the Seldinger technique and this was visualized under fluoroscopy. The dilator and sheath were in proper position as visualized by fluoroscopy. A subcutaneous pocket was then created caudad to the catheter insertion site. A transverse skin incision was made after the skin and subcutaneous tissues were infiltrated with local anesthetic. Blunt dissection was then used to create a space large enough for placement of the subcutaneous port. The catheter was then tunneled into the subcutaneous pocket. The wire and dilator were then removed. The catheter was then threaded into the introducer sheath and was positioned with its tip at the junction of the superior vena cava and the right atrium as visualized under fluoroscopy. The excess catheter was transected. The catheter was then attached to the subcutaneous port using manufacturers guidelines. The catheter was flushed with a heparin saline mixture prior to placement. Hemostasis was carefully controlled with electrocautery. The port was sutured to the subcutaneous fascia using 2-0 Vicryl suture at two sites. The port was then placed in the subcutaneous pocket. The incision were reapproximated with interrupted subdermal 3-0 vicryl sutures. The skin was reapproximated with 3-0 nylon suture in a interrupted fashion. Steristrips were used for reinforcement of the skin closure at IJ insertion site and a sterile opsite dressings were applied. The patient tolerated the procedure well. Surgical Findings: See operative note Complications Complications: No
--- NOTE | 2025-01-21 13:00 | EX.PCM.DISCH ---
Discharge Instructions Procedure Port-A-Cath Diet Discharge Diet: Light diet - advance as tolerated Activity May shower in (days): 5 (Keep port site clean and dry x5 days. Neck incision okay to get wet after 1 day. Okay to lower shower and upper sponge bath. OR okay to taper off port site with a Ziploc bag to shower) Lifting Restrictions: No lifting > 15 pounds for 3 days with the arm on the side of the port Dressing / Incision Call your doctor if your incision/area has: Continuous Slow Oozing, Sudden Increased Bleeding, Increased Pain/ Swelling, Increased Redness, Foul Smelling Discharge and Swelling at the incision site Call your doctor if you observe: Fever of 101 or Higher Change Dressing in: 2 days (2-3 days- port site; ok to remove neck opsite in 1 day) Follow Up Care Please Follow Up With: Cassy Andrea MD When: In 10 days for permanent suture removal?call office for appointment Test Results: Test results from this visit will be discussed in further detail at your follow-up appointment, if applicable. Discharge Plan Admission Attending Provider: Cassy Andrea Primary Care Provider: Vidal Ling FOOD SERVICE HOTEL RUNNER Consulting Providers: Ten Nogueira Instructions Print Language: Yakut Discharge Orders/Prescriptions Prescriptions: New tramadol 50 mg tablet 50 mg PO Q6H PRN (Reason: pain) Qty: 5 0RF No Action vitamin B complex Tablet 1 tab PO QDAY cholecalciferol (vitamin D3) 1,250 mcg (50,000 unit) capsule 1,250 mcg PO QMONTH ondansetron 8 mg tablet,disintegrating 8 mg PO Q8H PRN (Reason: nausea and vomiting) Qty: 30 2RF lidocaine-prilocaine 2.5-2.5 % cream 1 applic topical ONCE PRN (Reason: port access) 30 Days Qty: 30 2RF potassium chloride 20 mEq tablet,ER particles/crystals 20 meq PO DAILY Qty: 3 0RF allopurinol 300 mg tablet 300 mg PO QDAY Qty: 7 0RF Patient Comments: starting 01/24/2025 Rx Instructions: Start on 01/24/25 pantoprazole 40 mg tablet,delayed release (DR/EC) 40 mg PO DAILY mv-mn [id number] [Centrum ] 1 tab PO DAILY Referrals / Follow Up: Vidal Ling FOOD SERVICE HOTEL RUNNER, FOOD SERVICE HOTEL RUNNER-C [Primary Care Provider, Family Practice] Disposition Disposition (needs filled in before D/C Order can be placed): Home, Self Care
--- NOTE | 2025-01-21 13:04 | PCM.POST.ANE ---
Anesthesia: Postop Eval I Current Vital Signs Temperature: 96.8 F Pulse Rate: 88 Blood Pressure: 90/50 Respiratory Rate: 18 Pulse Ox: 95 Oxygen Delivery Method: Room Air Assessment Airway patent: Yes Spontaneous unlabored respirations: Yes Mental status: Awake nausea: No Vomiting: No Anesthesia Complication: No Fluid Hydration Crystalloid volume administer (ml): 150 Total IV fluid infused: 150 Progress Note Anesthesia document: Postop Eval 1 completed: Yes
--- NOTE | 2025-01-21 13:12 | RAD_ITS ---
PROCEDURE: CHEST 1 VIEW (PORTABLE) 01/21/2025 REASON FOR EXAM: PORT TECHNIQUE: Frontal view of the chest. COMPARISON: None FINDINGS: There is a Port-A-Cath in position on the right with its tip centrally located. Heart size is within normal limits. There is perihilar infiltrate bilaterally with consolidation in the left base, with a component of a moderate left effusion. Aortic calcifications are noted. There is no acute bony abnormality. RAD/Chest 1 View (Portable) IMPRESSION: There is perihilar infiltrate bilaterally with consolidation in the left base, with a component of a moderate left effusion. Reading Location: [facility]
--- NOTE | 2025-01-21 13:25 | POSTOPAN2_ITS ---
Anesthesia Postop Eval I Sum Postop Eval Completion status Anesthesia document: Postop Eval 1 completed: Yes Anesthesia Postop Eval I Summary Anesthesia Postop Eval I Summary: Anesthesia Postop Eval I: Assessment Summary Airway patent Yes 01/21/25 13:04 WASH DRILLER [email or web address].[email or web address] Spontaneous unlabored Yes 01/21/25 13:04 WASH DRILLER HELPER.CLEM respirations Mental status Awake 01/21/25 13:04 WASH DRILLER HELPER.[email or web address] nausea No 01/21/25 13:04 WASH DRILLER HELPER.[email or web address] Vomiting No 01/21/25 13:04 WASH DRILLER HELPER.CLEM Anesthesia Postop Eval I: Fluid Summary Crystalloid volume administer 150 01/21/25 13:04 WASH DRILLER HELPER.JCLI (ml) Colloids volume administered ( ml) Blood Product volume administered (ml) Total IV fluid infused 150 01/21/25 13:04 WASH DRILLER HELPER.CLEM Anesthesia Postop Eval I: Summary Notes Anesthesia Complication No 01/21/25 13:04 WASH DRILLER HELPER.CLEM Anesthesia Complication Comment: Post-operative progress note Anesthesia: Postop Eval II Evaluation Mental status: Awake Pain Level: 0 nausea: No Vomiting: No
--- NOTE | 2025-01-21 13:25 | PCM.POSTANE2 ---
Anesthesia Postop Eval I Sum Postop Eval Completion status Anesthesia document: Postop Eval 1 completed: Yes Anesthesia Postop Eval I Summary Anesthesia Postop Eval I Summary: Anesthesia Postop Eval I: Assessment Summary Airway patent Yes 01/21/25 13:04 POSTAL SERVICE SECTIONAL CENTER MANAGER.[email or web address] Spontaneous unlabored Yes 01/21/25 13:04 POSTAL SERVICE SECTIONAL CENTER MANAGER.CLEM respirations Mental status Awake 01/21/25 13:04 POSTAL SERVICE SECTIONAL CENTER MANAGER.YENNILI nausea No 01/21/25 13:04 POSTAL SERVICE SECTIONAL CENTER MANAGER.YENNILI Vomiting No 01/21/25 13:04 POSTAL SERVICE SECTIONAL CENTER MANAGER.CLEM Anesthesia Postop Eval I: Fluid Summary Crystalloid volume administer 150 01/21/25 13:04 POSTAL SERVICE SECTIONAL CENTER MANAGER.JCLI (ml) Colloids volume administered ( ml) Blood Product volume administered (ml) Total IV fluid infused 150 01/21/25 13:04 POSTAL SERVICE SECTIONAL CENTER MANAGER.CLEM Anesthesia Postop Eval I: Summary Notes Anesthesia Complication No 01/21/25 13:04 POSTAL SERVICE SECTIONAL CENTER MANAGER.CLEM Anesthesia Complication Comment: Post-operative progress note Anesthesia: Postop Eval II Evaluation Mental status: Awake Pain Level: 0 nausea: No Vomiting: No
[2025-01-21 19:52] LABS: Xtra Tube EP Lab EXTRA TUBE
== END 2025-01-21 14:22 | disposition home or self-care (01) ==
LOC: SDC 10:32 → AC 10:34
PROVIDERS: Internal Medicine Hematology & Oncology; PCP Nurse Practitioner Family; Referring Provider Surgery; Visit Provider Surgery
PROC: (CPT 36561; principal; 2025-01-21 12:00)
DX: Z45.2 Encounter for adjustment and management of vascular access device (principal); C83.18 Mantle cell lymphoma, lymph nodes of multiple sites; J43.9 Emphysema, unspecified; I10 Essential (primary) hypertension; F17.200 Nicotine dependence, unspecified, uncomplicated; K21.9 Gastro-esophageal reflux disease without esophagitis; Z79.899 Other long term (current) drug therapy
CPT/HCPCS: 36561; 00532; 36415; 71045; 77001; 80053; J2405

== ENCOUNTER 2025-01-24 15:25 | Inpatient (IN) | payer OTHER, MEDICARE, SELFPAY ==
[2025-01-24] VITALS (7 sets, daily range): BP systolic 109–158; BP diastolic 65–75; PULSE 85–104; RESP 14–32; TEMP 36.6–37.1; O2SAT 74–99; BMI 19.8
--- NOTE | 2025-01-24 17:07 | EKG12_ITS ---
Test Reason : Blood Pressure : */* mmHG Vent. Rate : 94 BPM Atrial Rate : 94 BPM P-R Int : 160 ms QRS Dur : 60 ms QT Int : 368 ms P-R-T Axes : 71 54 77 degrees QTcB Int : 460 ms Sinus rhythm with Premature supraventricular complexes Low voltage QRS Borderline ECG Confirmed by PRECIOUS LOPEZ, CHARLES ([id number]), international editorial producer CARISSA BRAND ([id number]) on 01/25/2025 1:04:42 PM Referred By: Confirmed By: CHARLES LANG MD
--- OUTSIDE RECORDS SUMMARY | 2025-01-24 17:13 | XMS RPT_ITS | CCD ---
Author Organization [facility] Care Team Providers Care Mathematical Sciences Professor Name Role Phone RANJITH HINES APRN, CNP Primary Care Phys ician Ranjith Ling CNP Primary Care Provider Ranjith Ling CNP Primary Care Provider [phone] ANURADHA JOHNSON - RANJITH VASQUEZ Primary Care U navailable ANURADHAKAMARI JOHNSON - RANJITH VASQUEZ Attending U navailable ANURADHAKAMARI JOHNSON - RANJITH VASQUEZ Primary Care U navailable ANURADHA ALEX - RANJITH VASQUEZ Attending U roel PEREZ MD, DR DECKER Attending Unavailabl e ANURADHA JOHNSON - RANJITH VSAQUEZ Primary Care U navailable ARTURO SHAIKH DO Attending Unavailable ANURADHALAURIE JOHNSON - RANJITH VASQUEZ Primary Care U navailable BartowRanjith engle CNP Primary Care Provider [phone] RANJITH LING Primary Care Unavailable TO ALCARAZ Attending Unavailable RANJITH LING Referring Unavailable PROVIDER, UNKNOWN Attending Unavailable PROVIDER, UNKNOWN Admitting Unavailable Anuradha HOSPITAL PHARMACIST-CRanjith Primary Care Physi lalitha Dr. Jeronimo Perez MD Attending Physician [phone] Dr. Jeronimo Perez MD Referring Provider Allegra Hylton Attending Physician Unavailable Morsi LOPEZ, Dr. Roa Emergency Department Physician ANURADHA JOHNSON - RANJITH VASQUEZ Attending U navailable ANURADHAKAMARI JOHNSON - RANJITH VASQUEZ Primary Care U navailable ANURADHA CLEANING LABORER - DIRECTOR MUSICRANJITH Attending U navailable ANURADHA CLEANING LABORER - DIRECTOR MUSIC, RANJITH Smith Primary Care U navailable ANURADHA CLEANING LABORER - DIRECTOR MUSIC, RANJITH Smith Primary Care U navailable ANURADHA CLEANING LABORER - DIRECTOR MUSIC, RANJITH Smith Attending U navailable Anuradha HOSPITAL PHARMACIST-C, Ranjith Maximus Primary Care Physi lalitha Nelida LOPEZ, Dr. Decker Attending Physician Nelida LOPEZ, Dr. Decker Referring Provider Allegra Hylton Attending Physician Unavailable Moris LOPEZ, Dr. Roa Attending Physician [phone] Moris LOPEZ, Dr. Roa Emergency Department Physician Anuradha HOSPITAL PHARMACIST-C, Ranjith Stroud Referring Provider Jero LOPEZ, Dr. Caal Attending Physician Emre LOPEZ, Dr. Madera Attending Physician Jero LOPEZ, Dr. Caal Referring Provider [phone] Emre LOPEZ, Dr. Madera Referring Provider Bartow, Ranjith Maximus Referring Unavail able Anuradha, Ranjith Stroud Primary Care Unavail able Cassy Andrea Attending Unavailable Anuradha, Ranjith Marcelinonis Referring Unavail able BriannekarTen lr Attending Unavailable Anuradha, Ranjith Marcelinonis Primary Care Unavail able Anuradha, Ranjith Stroud Primary Care Unavail able Cassy Andrea Attending Unavailable BriannekarTen lr Attending Unavailable Briannekarus, Ten Referring Unavailable Bartow, Ranjith Marcelinonis Primary Care Unavail able IsckarusTen Attending Unavailable Isckarus, Mansour Referring Unavailable Bartow, Ranjith Stroud Primary Care Unavail able Jeronimo Perez Attending Unavailable Nelida, Jeroinmo Referring Unavailable Bartow, Ranjith Marcelinonis Primary Care Unavail able Anuradha, Ranjith Maximus Consulting Unavail able Jeronimo Perez Attending Unavailable Joribour, Jeronimo Referring Unavailable Anuradha, Ranjith Maximus Primary Care Unavail able Bartow, Ranjith Maximus Primary Care Unavail able RobotCassy zarate Attending Unavailable Robottessa Cassy Referring Unavailable Bartow, Ranjith Maximus Primary Care Unavail able Crispin Subramanian Attending Unavailable Allegra Hylton Attending Unavailable Anuradha, Ranjith Maximus Primary Care Unavail able Anuradha, Ranjith Maximus Primary Care Unavail able Isckarus, Mansour Attending Unavailable Ranjith Ling Referring Unavail able Allergies Allergy Classification Reported Allergen(s) Allergy Type Date of Onset Reaction(s) Facility (15 sources) moxifloxacin; Translations: [moxifloxacin] Drug Allergy 2 Hives [facility] (13 sources) terbinafine; Translations: [terbinafine] Drug Allergy 2 Hives, Fatigue (finding), Fever (finding), Eruption of skin (disorder) [facility] Work Phone: (1 source) moxifloxacin Drug Allergy 5 [facility] (1 source) terbinafine Drug Allergy 5 [facility] Medications Current Medications Medication Drug Class(es) Dates Sig (Normalized) Sig (Original) acetaminophen 325 mg / HYDROcodone bitartrate 5 mg oral tablet (2 sources) Opioid Agonist Start: 11-24-2024 End: 11-29-2024 take 1 tablet by mouth every six hours as needed for pain [place] 325- 5 mg oral tablet Dose = 1 tab(s), Oral, q6h, PRN for pain, Fill Date: 11/24/2024, X 5 day(s), # 20 tab(s), 0 Refill(s), Pharmacy: [facility], T-cell lymphoma, 167, cm, 11/24/24 12:54:00 EDT, Height, 47.4, kg, 11/24/24 12:54:00 EDT, Dosing Weight Start Date: 11/24/24 Stop Date: 11/29/24 Status: Ordered Medication Dispense Status: Completed Quantity: 20.0 Unit: tab(s) Total Allowed Fills: 1 Fills Dispensed: 0 Indications: Non-Hodgkin lymphoma, unspecified, unspecified site; [id number] 200 actuat albuterol 0.09 mg/actuat metered dose inhaler (6 sources) beta2-Adrenergic Agonist Start: 12-08-2021 albuterol HFA (PROVENTIL HFA, VENTOLIN HFA) 90 mcg/actuation inhaler 12/08/2021 Active Start: 03-28-2021 End: 06-26-2021 take 1 puff(s) by inhalation every four hours ProAir HFA MDI (90 mcg/inh) inhalation aerosol 1 puff(s), Inhalation, q4h, # 8 gram(s), 2 Refill(s), Pharmacy: [facility], Acute bronchitis, 169.5, cm, 03/28/21 13:30:00 EST, Height, kg, 03/28/21 13:30:00 EST, Dosing Weight Start Date: 03/28/21 Stop Date: 06/26/21 Status: Ordered albuterol MDI (90 mcg/inh) CFC free inhalation aerosol (1 source) Start: 07-04-2021 End: 08-03-2021 take 2 puff(s) by inhalation every six hours albuterol MDI (90 mcg/inh) CFC free inhalation aerosol 2 puff(s), Inhalation, q6h, # 18 gram(s), 0 Refill(s), Pharmacy: [facility], Acute bronchitis, 169.5, cm, 07/04/21 13:17:00 EDT, Height Start Date: 07/04/21 Stop Date: 08/03/21 Status: Ordered amoxicillin 500 mg oral capsule (1 source) Penicillin-class Antibacterial Start: 12-24-2024 End: 12-27-2024 take 1 capsule by mouth every eight hours Amoxicillin 500 mg capsule Discontinued 500 mg PO Q8H 9 3 0 December 23, 2024 11:00pm December 25, 2024 11:00pm December 26, 2024 11:10pm Urinary tract infection Urinary tract infection, site not specified azithromycin 250 mg oral tablet (1 source) Macrolide Antimicrobial Start: 06-20-2021 End: 06-25-2021 Zithromax 250 mg oral tablet Dose : 250 mg = 1 tab(s), Oral, qDay, follow directions on Z-Scott, X 5 day(s), # 6 tab(s), 0 Refill(s), 06/25/21 9:54:00 EDT, Pharmacy: [facility], Acute URI, 169.5, cm, 06/20/21 9:22:00 EDT, Height, 51.81 Start Date: 06/20/21 Stop Date: 06/25/21 Status: Ordered cholecalciferol 1.25 mg oral capsule (8 sources) Vitamin D Start: 11-26-2024 take 1 capsule by mouth every month Start: 09-22-2024 End: 03-21-2025 take 1 capsule by mouth once, then take 1 capsule by mouth every month cholecalciferol 1250 mcg (50,000 intl units) oral capsule Dose : 50,000 International_Unit = 1 cap(s), Oral, qmonth, # 4 cap(s), 1 Refill(s), Pharmacy: [facility], Vitamin D deficiency, 167, cm, 09/15/24 14:37:00 EDT, Height, kg, 09/15/24 14:37:00 EDT, Dosing Weight Start Date: 09/22/24 Stop Date: 03/21/25 Status: Ordered Medication Dispense Status: Completed Quantity: 4.0 Unit: cap(s) Total Allowed Fills: 2 Fills Dispensed: 0 Indications: Vitamin D deficiency, unspecified; Start: 10-24-2023 End: 04-21-2024 cholecalciferol 1250 mcg (50 ,000 intl units) oral capsule Dose : 50,000 International_Unit = 1 cap(s), Oral, qmonth, # 4 cap(s), 1 Refill(s), Pharmacy: [facility], Vitamin D deficiency, 166, cm, 04/23/23 13:15:00 EST, Height, kg, 04/23/23 13:15:00 EST, Dosing Weight Start Date: 10/24/23 Stop Date: 04/21/24 Status: Ordered Start: 04-23-2023 End: 10-20-2023 cholecalciferol 1250 mcg (50 ,000 intl units) oral capsule Dose : 50,000 International_Unit = 1 cap(s), Oral, qmonth, # 4 cap(s), 1 Refill(s), Pharmacy: [facility], Vitamin D deficiency, 166, cm, 04/23/23 13:15:00 EST, Height, kg, 04/23/23 13:15:00 EST, Dosing Weight Start Date: 04/23/23 Stop Date: 10/20/23 Status: Ordered dexamethasone 6 mg oral tablet (2 sources) Corticosteroid Start: 07-04-2021 End: 07-14-2021 dexamethasone 6 mg oral tablet Dose : 6 mg = 1 tab(s), Oral, qDay, X 10 day(s), # 10 tab(s), 0 Refill(s), 07/14/21 13:40:00 EDT, Pharmacy: [facility], Acute bronchitis, 169.5, cm, 07/04/21 13:17:00 EDT, Height Start Date: 07/04/21 Stop Date: 07/14/21 Status: Ordered Start: 06-20-2021 End: 06-30-2021 dexamethasone 6 mg oral tabl et Dose : 6 mg = 1 tab(s), Oral, qDay, X 10 day(s), # 10 tab(s), 0 Refill(s), 06/30/21 9:54:00 EDT, Pharmacy: [facility], Acute URI, 169.5, cm, 06/20/21 9:22:00 EDT, Height Start Date: 06/20/21 Stop Date: 06/30/21 Status: Ordered doxycycline monohydrate 100 mg oral capsule (1 source) Tetracycline-class Drug Start: 07-04-2021 End: 07-14-2021 doxycycline monohydrate 100 mg oral capsule Dose : 100 mg = 1 cap(s), Oral, BID, X 10 day(s), # 20 cap(s), 0 Refill(s), 07/14/21 13:40:00 EDT, Pharmacy: [facility], Acute bronchitis, 169.5, cm, 07/04/21 13:17:00 EDT, Height, 48.1 Start Date: 07/04/21 Stop Date: 07/14/21 Status: Ordered 12 hr guaiFENesin 600 mg extended release oral tablet (2 sources) Start: 07-04-2021 End: 07-14-2021 guaiFENesin 600 mg oral tablet, extended release Dose : 600 mg = 1 tab(s), Oral, q12h, X 10 day(s), # 20 tab(s), 0 Refill(s), 07/14/21 13:40:00 EDT, Pharmacy: [facility], Acute bronchitis, 169.5, cm, 07/04/21 13:17:00 EDT, Height Start Date: 07/04/21 Stop Date: 07/14/21 Status: Ordered Start: 06-20-2021 End: 06-30-2021 guaiFENesin 600 mg oral tabl et, extended release Dose : 600 mg = 1 tab(s), Oral, q12h, X 10 day(s), # 20 tab(s), 0 Refill(s), 06/30/21 9:54:00 EDT, Pharmacy: [facility], Acute URI, 169.5, cm, 06/20/21 9:22:00 EDT, Height Start Date: 06/20/21 Stop Date: 06/30/21 Status: Ordered hydroCHLOROthiazide 12.5 mg / lisinopril 10 mg oral tablet (14 sources) Thiazide Diuretic, Angiotensin Converting Enzyme Inhibitor Start: 10-19-2024 Start: 10-24-2023 take 1 tablet by delfin th once daily hydrochlorothiazide-lisinopril 12.5 mg-1 0 mg oral tablet Dose = 1 tab(s), Oral, qDay, # 90 tab(s), 1 Refill(s), Pharmacy: [facility], 166, cm, 04/23/23 13:15:00 EST, Height, kg, 04/23/23 13:15:00 EST, Dosing Weight Start Date: 10/24/23 Status: Ordered Start: 04-23-2023 take 1 tablet by delfin th once daily hydrochlorothiazide-lisinopril 12.5 mg-1 0 mg oral tablet Dose = 1 tab(s), Oral, qDay, # 90 tab(s), 1 Refill(s), Pharmacy: [facility], 166, cm, 04/23/23 13:15:00 EST, Height, kg, 04/23/23 13:15:00 EST, Dosing Weight Start Date: 04/23/23 Status: Ordered Start: 01-05-2022 lisinopril-hyd roCHLOROthiazide (PRINZIDE,ZESTORETIC) 10-12.5 mg per tablet 01/05/2022 Active Start: 03-28-2021 End: 12-23-2021 take 1 tablet by mouth once daily hydrochlorothiazide-lisinopril 12.5 mg-1 0 mg oral tablet Dose = 1 tab(s), Oral, qDay, # 90 tab(s), 2 Refill(s), Pharmacy: [facility], 169.5, cm, 03/28/21 13:30:00 EST, Height, kg, 03/28/21 13:30:00 EST, Dosing Weight Start Date: 03/28/21 Stop Date: 12/23/21 Status: Ordered ibuprofen 400 mg oral tablet (5 sources) Nonsteroidal Anti-inflammatory Drug Start: 08-22-2024 End: 09-21-2024 take 1 tablet by mouth every six hours as needed for pain ibuprofen (MOTRIN) 400 mg tablet Indications: Acute left flank pain Take 1 tablet by mouth every 6 hours as needed for pain. 20 tablet 08/22/2024 09/21/2024 Active Start: 10-05-2021 End: 08-22-2024 ibuprofen (MOTRIN) 600 mg ta blet 10/05/2021 08/22/[address] [facility] Medication (2 sources) Start: 12-09-[address] [facility] Medicatio n 1 tab, Daily, , 0 Refill(s) Start Date: 12/09/18 Status: Ordered mv-mn [id number] h (2 sources) Start: 12-07-2024 Start: 12-07-2024 mv-mn 115-FA-o [id number] Active 1 {tbl} PO DAILY December 07, 2024 12:00am SUPPLEMENT Complies with drug therapy nitrofurantoin, macrocrystals 25 mg / nitrofurantoin, monohydrate 75 mg oral capsule (2 sources) Nitrofuran Antibacterial Start: 08-22-2024 End: 08-27-2024 take 1 capsule by mouth twice daily nitrofurantoin monohydrate and macrocrystal (MACROBID) 100 mg capsule Indications: UTI symptoms Take 1 capsule by mouth two times a day for 5 days. 10 capsule 08/22/2024 08/27/2024 Active pantoprazole 40 mg delayed release oral tablet (5 sources) Proton Pump Inhibitor Start: 11-24-2024 take 1 tablet by mouth once daily Vitamin B Complex oral tablet (3 sources) Start: 09-15-2024 take 1 tablet by mouth once daily Vitamin B Complex oral tablet Dose = 1 tab(s), Oral, qDay, # 90 tab(s), 1 Refill(s), Pharmacy: [facility], Celiac disease, 167, cm, 09/15/24 14:37:00 EDT, Height, kg, 09/15/24 14:37:00 EDT, Dosing Weight Start Date: 09/15/24 Status: Ordered Medication Dispense Status: Completed Quantity: 90.0 Unit: tab(s) Total Allowed Fills: 2 Fills Dispensed: 0 Indications: Celiac disease; Vitamin B Complex tablet (3 sources) Start: 11-26-2024 Start: 11-26-2024 Vitamin B Comp jamir tablet Active 1 {tbl} PO daily November 26, 2024 12:00am FOR ENERGY Complies with drug therapy Start: 11-26-2024 Completed/Discontinued Medications Medication Drug Class(es) Dates Sig (Normalized) Sig (Original) promethazine hydrochloride 12.5 mg oral tablet (2 sources) Phenothiazine Start: 06-20-2021 End: 06-25-2021 promethazine 12.5 mg oral tablet Dose : 12.5 mg = 1 tab(s), Oral, q4h, PRN for nausea, # 30 tab(s), 0 Refill(s), Pharmacy: [facility], 169.5, cm, 06/20/21 9:22:00 EDT, Height Start Date: 06/20/21 Stop Date: 06/25/21 Status: Ordered Problems Problem Classification Problem Date Documented Da te Episodic/Chronic Abdominal pain (8 sources) Left flank pain; Translations: [Unspecified abdominal pain] Onset: 08-22-2024 08-22-2024 Episodic Acute and unspecified renal failure (2 sources) Prerenal azotemia; Translations: [Unspecified kidney failure] 12-07-2024 Chronic Calculus of urinary tract (3 sources) Kidney stone 11-24-2024 Episodic Chronic kidney disease (3 sources) Chronic kidney disease stage 4 11-24-2024 Chronic Chronic obstructive pulmonary disease and bronchiectasis (6 sources) Pulmonary emphysema; Translations: [Chronic obstructive lung disease] 07-11-2021 Chronic Deficiency and other anemia (5 sources) Anemia of chronic disease 09-18-2022 Chronic Deficiency and other anemia (4 sources) Anemia; Translations: [Anemia, unspecified] 12-07-2024 Episodic Deficiency and other anemia (2 sources) Anemia, unspecified; Translations: [Anemia, unspecified] Onset: 01-11-2025 Episodic E Codes: Fall (1 source) Fall; Translations: [Unspecified fall, initial encounter] Onset: 08-30-2023 Episodic Essential hypertension (14 sources) Hypertensive disorder; Translations: [Essential (primary) hypertension] Onset: 09-18-2022 12-08-2018 Chronic Genitourinary symptoms and ill-defined conditions (3 sources) Urinary symptoms ; Translations: [Unspecified symptoms and signs involving the genitourinary system] Onset: 08-22-2024 08-22-2024 Episodic Heart valve disorders (7 sources) Pansystolic murmur 02-10-2019 Episodic Intestinal infection (3 sources) Small bowel bacterial overgrowth syndrome 07-07-2024 Episodic Lymphadenitis (4 sources) Lymphadenopathy; Translations: [Generalized enlarged lymph nodes] Onset: 12-22-2024 Episodic Malaise and fatigue (6 sources) Fatigue; Translations: [Other fatigue] Onset: 12-15-2024 07-11-2021 Episodic Mycoses (2 sources) Onychomycosis of toenails 04-26-2020 Episodic Nausea and vomiting (3 sources) Nausea 07-07-2024 Episodic Non-Hodgkin`s lymphoma (8 sources) T-cell lymphoma (clinical); Translations: [Non-Hodgkin lymphoma, unspecified, unspecified site] Onset: 12-16-2024 11-17-2024 Chronic Nutritional deficiencies (7 sources) Vitamin D deficiency 04-26-2020 Chronic Other diseases of kidney and ureters (2 sources) Chronic renal insufficiency; Translations: [Disorder of kidney and ureter, unspecified] 12-07-2024 Episodic Other diseases of veins and lymphatics (2 sources) Lymphedema of bilateral lower limbs; Translations: [Lymphedema, not elsewhere classified] 12-07-2024 Chronic Other disorders of stomach and duodenum (1 source) Acute dilatation of stomach; Translations: [Acute dilatation of stomach] Onset: 08-25-2024 Episodic Other disorders of stomach and duodenum (3 sources) Acute dilatation of stomach 07-07-2024 Episodic Other gastrointestinal disorders (3 sources) Celiac disease 09-15-2024 Chronic Other gastrointestinal disorders (1 source) Irritable bowel syndrome; Translations: [Irritable bowel syndrome without diarrhea] 12-22-2024 Chronic Other gastrointestinal disorders (1 source) Celiac disease; Translations: [Celiac disease] Onset: 11-27-2024 Chronic Other gastrointestinal disorders (1 source) Abdominal distension (gaseous); Translations: [Abdominal distension (gaseous)] Onset: 08-25-2024 Episodic Other gastrointestinal disorders (3 sources) Abdominal bloating 07-07-2024 Episodic Other gastrointestinal disorders (2 sources) Increased frequency of defecation 07-07-2024 Episodic Other gastrointestinal disorders (5 sources) Splenomegaly; Translations: [Splenomegaly, not elsewhere classified] 11-20-2024 Episodic Other gastrointestinal disorders (2 sources) Splenomegaly, not elsewhere classified; Translations: [Splenomegaly, not elsewhere classified] Onset: 01-06-2025 Episodic Other liver diseases (3 sources) Portal hypertension; Translations: [Portal hypertension] 12-07-2024 Chronic Other liver diseases (3 sources) Large liver 11-24-2024 Episodic Other liver diseases (2 sources) Elevated liver enzymes level; Translations: [Abnormal levels of other serum enzymes] 12-07-2024 Episodic Other liver diseases (1 source) Hepatomegaly with splenomegaly, not elsewhere classified; Translations: [Hepatomegaly with splenomegaly, not elsewhere classified] Onset: 12-16-2024 Episodic Other liver diseases (1 source) Hepatomegaly, not elsewhere classified; Translations: [Hepatomegaly, not elsewhere classified] Onset: 12-18-2024 Episodic Other nutritional; endocrine; and metabolic disorders (1 source) Humoral hypercalcemia of malignancy; 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] 12-23-2024 Chronic Other nutritional; endocrine; and metabolic disorders (7 sources) Underweight 12-08-2018 Episodic Other nutritional; endocrine; and metabolic disorders (2 sources) Unintentional weight loss; Translations: [Abnormal weight loss] 12-07-2024 Episodic Other screening for suspected conditions (not mental disorders or infectious disease) (5 sources) Stool DNA-based colorectal cancer screening positive 08-24-2022 Episodic Other skin disorders (2 sources) Night sweats; Translations: [Generalized hyperhidrosis] 12-07-2024 Episodic Residual codes; unclassified (7 sources) Past history of procedure 03-28-2021 Episodic Comment on above: BILATERAL DIGITAL SC REENING MAMMOGRAM 3D/2D WITH CAD WITH MEDIOLATERAL OBLIQUE CRANIOCAUDAL: 12/23/2018 Comparison is made to exam dated: 12/14/2011 mammogram - [facility]. The tissue of both breasts is extremely dense. Current study was also evaluated with a Computer Aided Detection (CAD) system. No significant masses, calcifications, or other findings are seen in either breast. There has been no significant interval change. IMPRESSION: NEGATIVE There is no mammographic evidence of malignancy. A 1 year screening mammogram is recommended.(12/24/2019) BILATERAL DIGITAL SC REENING MAMMOGRAM 3D/2D WITH CAD WITH MEDIOLATERAL OBLIQUE CRANIOCAUDAL: 12/23/2018 Comparison is made to exam dated: 12/14/2011 mammogram - [facility]. The tissue of both breasts is extremely dense. Current study was also evaluated with a Computer Aided Detection (CAD) system. No significant masses, calcifications, or other findings are seen in either breast. There has been no significant interval change. IMPRESSION: NEGATIVE There is no mammographic evidence of malignancy. A 1 year screening mammogram is recommended.(12/24/2019) Residual codes; unclassified (7 sources) Postmenopausal state 12-08-2018 Episodic Residual codes; unclassified (7 sources) Tobacco user 12-09-2018 Episodic Screening and history of mental health and substance abuse codes (7 sources) H/O: depression 12-09-2018 Episodic Substance-related disorders (1 source) Tobacco user; Translations: [Nicotine dependence, unspecified, uncomplicated] 10-11-2022 Chronic Unclassified (20 sources) Patient encounter status 03-28-2021 Unclassified (1 source) R59.1 - Generalized enlarged lymph nodes Urinary tract infections (4 sources) Pyelonephritis; Translations: [Urinary tract infectious disease] 11-24-2024 Episodic Results Test Name Value Interpretation Reference Range Facility CBC W/Diff, Automatedon 11-1 Anisocytosis Ql (Bld) 1+ Normal [facility] Comment on above: Performed By: #### L 300.3900, L300.4310, L101.9900, L3410.2400, L100.0500, L501.6710, L500.4050 #### [facility] [address] [place], [address] PLT EST MOD DEC Normal ADEQ [facility] Comment on above: Performed By: #### L 300.3900, L300.4310, L101.9900, L3410.2400, L100.0500, L501.6710, L500.4050 #### [facility] [address] [place], [address] Comprehensive Metabolic Prof ilon 01-11-2025 Albumin [Mass/Vol] 3.0 g/dL Low 3.4-4.8 [facility] Comment on above: Performed By: #### L 300.3900, L300.4310, L101.9900, L3410.2400, L100.0500, L501.6710, L500.4050 #### [facility] [address] [place], [address] Albumin/Globulin [Mass ratio] 1.2 {ratio} Normal 0.9-2.4 [facility] Comment on above: Performed By: #### L 300.3900, L300.4310, L101.9900, L3410.2400, L100.0500, L501.6710, L500.4050 #### [facility] [address] [place], [address] ALK PHOS 234 U/L High 35-104 [facility] Comment on above: Performed By: #### L 300.3900, L300.4310, L101.9900, L3410.2400, L100.0500, L501.6710, L500.4050 #### [facility] [address] [place], [address] ALT [Catalytic activity/Vol] 46 U/L High <=34 [facility] Comment on above: Performed By: #### L 300.3900, L300.4310, L101.9900, L3410.2400, L100.0500, L501.6710, L500.4050 #### [facility] [address] [place], [address] AST [Catalytic activity/Vol] 84 U/L High <=31 [facility] Comment on above: Performed By: #### L 300.3900, L300.4310, L101.9900, L3410.2400, L100.0500, L501.6710, L500.4050 #### [facility] [address] [place], [address] Bilirubin [Mass/Vol] 1.11 mg/dL Normal 0.00-1.30 [facility] Comment on above: Performed By: #### L 300.3900, L300.4310, L101.9900, L3410.2400, L100.0500, L501.6710, L500.4050 #### [facility] [address] [place], [address] BUN/CRE 23.2 RATIO High 10-20 [facility] Comment on above: Performed By: #### L 300.3900, L300.4310, L101.9900, L3410.2400, L100.0500, L501.6710, L500.4050 #### [facility] [facility] [address] [place], [address] Calcium [Mass/Vol] 10.6 mg/dL Normal 7.6-11.0 [facility] Comment on above: Performed By: #### L 300.3900, L300.4310, L101.9900, L3410.2400, L100.0500, L501.6710, L500.4050 #### [facility] [address] [place], [address] Chloride [Moles/Vol] 102 mmol/L Normal 98-108 [facility] Comment on above: Performed By: #### L 300.3900, L300.4310, L101.9900, L3410.2400, L100.0500, L501.6710, L500.4050 #### [facility] [address] [place], [address] CO2 [Moles/Vol] 24.3 mmol/L Normal 21.0-32.0 [facility] Comment on above: Performed By: #### L 300.3900, L300.4310, L101.9900, L3410.2400, L100.0500, L501.6710, L500.4050 #### [facility] [address] [place], [address] ( Creatinine [Mass/Vol] 1.39 mg/dL High 0.70-1.20 [facility] Comment on above: Performed By: #### L 300.3900, L300.4310, L101.9900, L3410.2400, L100.0500, L501.6710, L500.4050 #### [facility] [address] [place], [place], [phone] (090) ECRCL 31.07 ml/min Low 50-250 [facility] Comment on above: Performed By: #### L 300.3900, L300.4310, L101.9900, L3410.2400, L100.0500, L501.6710, L500.4050 #### [facility] [address] [place], [place], [phone] (595) GAP 16 High 5-15 [facility] Comment on above: Performed By: #### L 300.3900, L300.4310, L101.9900, L3410.2400, L100.0500, L501.6710, L500.4050 #### [facility] [address] [place], [place], [phone] (011) GFR/1.73 sq M.predicted among non-blacks MDRD (S/P/Bld) [Vol rate/Area] 41 mL/min/{1.73_m2} Low >60 [facility] Comment on above: Result Comment: mL/m in/1.73m2 CKD-EPI Creatinine Equation (2020) Performed By: #### L 300.3900, L300.4310, L101.9900, L3410.2400, L100.0500, L501.6710, L500.4050 #### [facility] [address] [place], [address] Globulin (S) [Mass/Vol] 2.5 g/dL Normal 2.2-4.2 [facility] Comment on above: Performed By: #### L 300.3900, L300.4310, L101.9900, L3410.2400, L100.0500, L501.6710, L500.4050 #### [facility] [address] [place], [address] Glucose [Mass/Vol] 84 mg/dL Normal 70-99 [facility] Comment on above: Performed By: #### L 300.3900, L300.4310, L101.9900, L3410.2400, L100.0500, L501.6710, L500.4050 #### [facility] [address] [place], [address] Potassium [Moles/Vol] 3.7 mmol/L Normal 3.3-5.1 [facility] Comment on above: Performed By: #### L 300.3900, L300.4310, L101.9900, L3410.2400, L100.0500, L501.6710, L500.4050 #### [facility] [address] [place], [address] Sodium [Moles/Vol] 142 mmol/L Normal 133-145 [facility] Comment on above: Performed By: #### L 300.3900, L300.4310, L101.9900, L3410.2400, L100.0500, L501.6710, L500.4050 #### [facility] [address] [place], [address] T PROT 5.5 g/dL Low 5.9-8.4 [facility] Comment on above: Performed By: #### L 300.3900, L300.4310, L101.9900, L3410.2400, L100.0500, L501.6710, L500.4050 #### [facility] [address] [place], [address] Urea nitrogen [Mass/Vol] 32 mg/dL High 4-19 [facility] Comment on above: Performed By: #### L 300.3900, L300.4310, L101.9900, L3410.2400, L100.0500, L501.6710, L500.4050 #### [facility] [address] [place], [address] Oncology Visit Reporton 01-02 Oncology Visit Report [facility] [address] [place], [place] [address] OFFICE VISIT Date of Service: 01/11/25 1459 MR#: [id number] Acct: [id number] Name: ESTELLA CHAO Rep #: [id number] : 1955 From: Ten Nogueira MD Age/Sex: 69/F Location: [facility] [place] [facility] Status: Signed HPI Subjective Date of Service 01/11/25 Chief Complaint Lymphoma History of Present Illness 69-year-old female who presents with a few months history of increasing abdominal distention and left lower quadrant discomfort. She has been a smoker since her teenage, no excess alcohol. She has not had any persistent fevers or drenching night sweats. She underwent blood work that suggested possible celiac disease and was placed on a gluten-free diet and this is when she lost weight. August 25, 2024 CT abdomen and pelvis with contrast showed massive splenomegaly, fatty liver, bilateral inguinal lymph nodes but no other pathologically enlarged lymph nodes in the abdomen and pelvis, heterogeneous enhancement of both kidneys but no masses and nonobstructing renal stones within the right kidney. The remainder of abdominal solid organs and bowel appeared normal. In October 2024 she was seen by Dr. Bobby who performed an upper GI endoscopy with duodenal biopsies that showed no evidence for celiac disease and once the dietary restriction was lifted up she has been regaining the lost weight. December 16, 2024 MRI of the abdomen: Gross splenomegaly, was a small wedge-shaped area of enhancement suggestive of a splenic infarct, liver was unremarkable, upper abdominal adenopathy at the hilum of the spleen, left para-aortic space. Federico hepatis adenopathy was estimated to be 2.6 cm in axis. December 27, 2024 left groin lymph node core biopsy: CD5 positive B-cell lymphoma with BCL1 expression consistent with mantle cell lymphoma, p53 wild type. [facility] Medical History (Updated 01/11/25 @ 15:[address] Ten Nogueira MD) 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 Depression Emphysema lung COPD (chronic obstructive pulmonary disease) Postmenopausal IBS (irritable bowel syndrome) Positive colorectal cancer screening using Cologuard test Anemia Acute distention of stomach Abdominal pain Hypertension Vitamin D deficiency Splenomegaly Family History Father Alcohol abuse Mother Heart disease Depression Social History Smoking Status: Light Smoker (<10/day) Tobacco: How many years used: 50 alcohol intake: never substance use type: does not use ROS Constitutional Constitutional: Reports systems reviewed and no addt'l complaints, except as documented, as per HPI, fatigue and other Details: Early satiety ; Denies anorexia, fever(s) or weight loss Eyes Eyes: Reports systems reviewed and no addt'l complaints, except as documented ENT HEENT: Reports systems reviewed and no addt'l complaints, except as documented; Denies mouth lesions Cardiovascular Cardiovascular: Reports systems reviewed and no addt'l complaints, except as documented and edema; Denies chest pain with activity Respiratory/Chest Respiratory/Chest: Reports systems reviewed and no addt'l complaints, except as documented; Denies cough, dyspnea, hemoptysis or breast mass Gastrointestinal Gastrointestinal: Reports systems reviewed and no addt'l complaints, except as documented, as per HPI, abdominal pain, bloating and other Details: Left upper quadrant discomfort, she became aware of the enlarged spleen after it was brought to her attention by Dr. Bobby. ; Denies change in bowel habits, diarrhea, dyspepsia, dysphagia, excessive flatus, heartburn, hematochezia or melena Genitourinary Genitourinary: Reports systems reviewed and no addt'l complaints, except as documented, dysuria, urinary frequency and urinary urgency Musculoskeletal Musculoskeletal: Reports systems reviewed and no addt'l complaints, except as documented; Denies back pain Integumentary Integumentary: Reports systems reviewed and no addt'l complaints, except as documented; Denies new lesions Neurologic Neurologic: Reports systems reviewed and no addt'l complaints, except as documented; Denies focal weakness or paresthesias Psychiatric Psychiatric: Reports systems reviewed and no addt'l complaints, except as documented Endocrine Endocrinology: Reports systems reviewed and no addt'l complaints, except as documented Hematologic/Lymphatic Hematologic/Lymphatic : Reports other Details: Patient herself is unaware of enlarged lymph nodes. ; Denies lymphadenopathy Allergic/Immunologic Allergic/Immunologic: Reports systems reviewed and no addt'l complaints, except as documented Intake Vital Signs 12/22/24 14:33 12/24/24 12:07 01/11/25 15:01 01/11/25 15:03 (more content not included)... Normal [facility] Chest WITH Contraston 2024 Chest WITH Contrast [facility] Imaging Services [address] [place] [id number] Chest WITH Contrast MR#: [id number] Acct: [id number] Name: ESTELLA CHAO Rep #: [id number] : 1955 F 69 From: Roby munguia MD PCP: Ranjith Ling, HOSPITAL PHARMACIST-C Status: REG CLI Study: Chest WITH Contrast Date of Exam: 01/06/25 Exam# [id number] Ordering Dr: Ten Nogueira MD PROCEDURE: CHEST WITH CONTRAST 01/06/2025 REASON FOR EXAM: LYMPHADENOPATHY/SPLEN OMEGALY Lower extremity swelling. TECHNIQUE: Procedure Code: CTCHW Modality: CT Procedure: CHEST WITH CONTRAST Coronal and Sagittal reconstruction series were provided. CONTRAST: Isovue-300 VOLUME: 100 mL One or more dose reduction techniques were used (e.g., Automated exposure control, adjustment of the mA and/or kV according to patient size, use of iterative reconstruction technique). RADIATION DOSE SUMMARY: CTDlvol: 8.8 mGy DLP: 166.11 mGycm COMPARISON: None FINDINGS: Hardware: None Lymph nodes: No suspicious lymph nodes are seen. Heart and Vasculature: The heart is nonenlarged. No significant coronary artery calcification is present. Lungs and Airways: Bilateral pleural effusions left greater than right. Increased linear markings at the left lung base suggestive of linear scarring and/or atelectasis. Pleura: Bilateral pleural effusions left greater than right. Upper Abdomen: Marked degree of splenomegaly. Bones: Degenerative changes of the thoracic spine. CT/Chest WITH Contrast IMPRESSION: Coronary artery calcification (CAC) is is absent Bilateral pleural effusions left greater than right with the atelectasis and/or scarring at the left lung base. Reading Location: [id number] CC: HOSPITAL PHARMACISTEstephania Ling; Dr. Ten Nogueira MD Bench Shear Operator: Signed Normal [facility] Anion gap in Serum or Plasma Ordered By: Ten Nogueira on 12-29-2024 Anion gap [Moles/Vol] 15 mmol/L 07-16 [facility] BUN/creatinine ratioOrdered By: Ten Nogueira on 12-29-2024 Urea nitrogen/Creatinine [Mass ratio] 21.0 mg/mg High 12-21 [facility] Basic Metabolic Profile (BMP )on 12-29-2024 BUN/CRE 21.0 RATIO High 12-21 [facility] Comment on above: Performed By: #### L 300.3900, L300.4310, L101.9900, L3410.2400, L100.0500, L501.6710, L500.4050 #### [facility] [address] [place] [address] [address] [place], [place], [id number] Calcium [Mass/Vol] 10.4 mg/dL Normal 7.6-11.0 [facility] Comment on above: Performed By: #### L 300.3900, L300.4310, L101.9900, L3410.2400, L100.0500, L501.6710, L500.4050 #### [facility] [address] [place], [address] Chloride [Moles/Vol] 102 mmol/L Normal 98-108 [facility] Comment on above: Performed By: #### L 300.3900, L300.4310, L101.9900, L3410.2400, L100.0500, L501.6710, L500.4050 #### [facility] [address] [place], [address] CO2 [Moles/Vol] 27.1 mmol/L Normal 21.0-32.0 [facility] Comment on above: Performed By: #### L 300.3900, L300.4310, L101.9900, L3410.2400, L100.0500, L501.6710, L500.4050 #### [facility] [address] [place], [address] Creatinine [Mass/Vol] 1.03 mg/dL Normal 0.70-1.20 [facility] Comment on above: Performed By: #### L 300.3900, L300.4310, L101.9900, L3410.2400, L100.0500, L501.6710, L500.4050 #### [facility] [address] [place], [address] ECRCL 41.92 ml/min Low 50-250 [facility] Comment on above: Performed By: #### L 300.3900, L300.4310, L101.9900, L3410.2400, L100.0500, L501.6710, L500.4050 #### [facility] [address] [place], [address] GAP 15 Normal 5-15 [facility] Comment on above: Performed By: #### L 300.3900, L300.4310, L101.9900, L3410.2400, L100.0500, L501.6710, L500.4050 #### [facility] [address] [place], [address] GFR/1.73 sq M.predicted among non-blacks MDRD (S/P/Bld) [Vol rate/Area] 59 mL/min/{1.73_m2} Low >60 [facility] Comment on above: Result Comment: mL/m in/1.73m2 CKD-EPI Creatinine Equation (2020) Performed By: #### L 300.3900, L300.4310, L101.9900, L3410.2400, L100.0500, L501.6710, L500.4050 #### [facility] [address] [place], [address] Glucose [Mass/Vol] 91 mg/dL Normal 70-99 [facility] Comment on above: Performed By: #### L 300.3900, L300.4310, L101.9900, L3410.2400, L100.0500, L501.6710, L500.4050 #### [facility] [address] [place], [address] Potassium [Moles/Vol] 3.9 mmol/L Normal 3.3-5.1 [facility] Comment on above: Performed By: #### L 300.3900, L300.4310, L101.9900, L3410.2400, L100.0500, L501.6710, L500.4050 #### [facility] [address] [place], [address] Sodium [Moles/Vol] 144 mmol/L Normal 133-145 [facility] Comment on above: Performed By: #### L 300.3900, L300.4310, L101.9900, L3410.2400, L100.0500, L501.6710, L500.4050 #### [facility] [address] [place], [address] Urea nitrogen [Mass/Vol] 22 mg/dL High 4-19 [facility] Comment on above: Performed By: #### L 300.3900, L300.4310, L101.9900, L3410.2400, L100.0500, L501.6710, L500.4050 #### [facility] [address] [place], [place], [id number] Carbon dioxide, total [Moles /volume] in Central venous bloodOrdered By: Ten Nogueira on 12-29-2024 CO2 [Moles/Vol] 27.1 mmol/L 21.0-32.0 [facility] Chloride assayOrdered By: Felipe Nogueira on 12-29-2024 Chloride [Moles/Vol] 102 mmol/L 98-108 [facility] Glomerular filtration rate ( GFR) estimation/1.73 sq m using serum, plasma, or whole bOrdered By: Ten Nogueira on 12-29-2024 GFR/1.73 sq M.predicted among non-blacks MDRD (S/P/Bld) [Vol rate/Area] 59 mL/min/{1.73_m2} Low >60 [facility] Comment on above: mL/min/1.73m2 CKD-EP I Creatinine Equation (2020) L350.1820on 12-29-2024 Path. Sent [facility] SEE PATHOLOGY REPORT Normal [facility] Comment on above: Order Comment: RESUL TS FAXED TO DR ANDREA 01/11/25 Kimberlee59 Josh Webster. Result Comment: Spec imen sent to [facility] Pathology Department. Report available in EMR. Performed By: #### L 300.3900, L300.4310, L101.9900, L3410.2400, L100.0500, L501.6710, L500.4050 #### [facility] [address] [place], [address] L501.2276on 12-29-2024 Ionized Calcium 1.30 mmol/L Normal 1.09-1.30 [facility] Comment on above: Performed By: #### L 300.3900, L300.4310, L101.9900, L3410.2400, L100.0500, L501.6710, L500.4050 #### [facility] [address] [place], [address] Potassium measurement (mass/ volume)Ordered By: Ten Nogueira on 12-29-2024 Potassium (Unsp spec) [Mass/Vol] 3.9 mmol/L 3.3-5.1 [facility] Serum creatinine measurement (mass/volume)Ordered By: Ten Nogueira on 12-29-2024 Creatinine [Mass/Vol] 1.03 mg/dL 0.70-1.20 [facility] Serum glucose measurement (m ass/volume)Ordered By: Ten Nogueira on 12-29-2024 Glucose [Mass/Vol] 91 mg/dL 70-99 [facility] Serum or plasma calcium matt urement (mass/volume)Ordered By: Ten Nogueira on 12-29-2024 Calcium [Mass/Vol] 10.4 mg/dL 7.6-11.0 [facility] Comment on above: *Additional results available. Contact laboratory/see report* Serum or plasma urea nitroge n measurement (mass/volume)Ordered By: Ten Nogueira on 12-29-2024 Urea nitrogen [Mass/Vol] 22 mg/dL High 4-19 [facility] Sodium levelOrdered By: Aneta Nogueira on 12-29-2024 Sodium [Moles/Vol] 144 mmol/L 133-145 [facility] Surgery Visit Reporton 12-29 Surgery Visit Report [facility] [address] [place], [place] [address] OFFICE VISIT Date of Service: 12/29/24 MR#: [id number] Acct: [id number] Name: ESTELLA CHAO Rep #: [id number] : 1955 Provider: Dr. Cassy zarate MD Age/Sex: 69/F Location: [facility] [place].[facility] Status: Signed Intake Vital Signs 12/22/24 14:33 12/24/24 12:07 Height 5 ft 6 in 5 ft 6 in Intake Visit Reasons: AXILLARY LYMPH NODE BIOPSY Chief Complaint: axillary lymph node biopsy Is patient in pain?: No Allergies moxifloxacin (From Avelox) Allergy (Unknown, Verified 12/29/24 10:21) unknown terbinafine Allergy (Unknown, Verified 12/29/24 10:21) rash Medications ???Medication ???Instructions ???Recorded ???Confirmed ???Type cholecalciferol (vitamin D3) 1,250 1,250 mcg PO [facility] 11/26/24 12/29/24 History mcg (50,000 unit) capsule lisinopril 10 1 tab PO QDAY BLOOD PRESSURE 11/2612/29/24 History mg-hydrochlorothiazid e 12.5 mg tablet vitamin B complex 1 tab PO QDAY FOR ENERGY 11/26/24 12/29/24 History mv-mn [id number]-[id number] sh 1 tab PO DAILY SUPPLEMENT 12/07/24 12/29/24 History pantoprazole 40 mg tablet,delayed 40 mg PO DAILY STOMACH 12/07/24 1 History release Have you fallen in the past year?: No PFSH Medical History (Updated 12/29/24 @ 12:[address] aCssy Andrea MD) Humoral hypercalcemia of malignancy Lymphadenopathy Depression Emphysema lung COPD (chronic obstructive pulmonary disease) Postmenopausal IBS (irritable bowel syndrome) Positive colorectal cancer screening using Cologuard test Anemia Acute distention of stomach Abdominal pain Hypertension Vitamin D deficiency Splenomegaly Family History Father Alcohol abuse Mother Heart disease Depression Social History (Updated 12/22/24 @ 14:32 by Allegra Hylton) Smoking Status: Light Smoker (<10/day) Tobacco: How many years used: 50 alcohol intake: never substance use type: does not use HPI HPI HPI: 69-year-old female presents for lymph node biopsy due to splenomegaly, anemia, lymphadenopathy. Patient's found on MRI and CAT scan from earlier this year to have enlarged left groin nodes. Angelica strange did see Dr. Nogueira who also noted lymphadenopathy in the axillas and recommended a biopsy. ROS General General: Yes fatigue; No weight change, appetite, colon cancer, breast cancer or weakness HEENT HEENT: No difficulty swallowing, eye injury, eye surgery, swollen glands or hoarseness Endo Endocrine: No thyroid disease, diabetes mellitus, thyroid cancer, Hair loss, heat intolerance or cold intolerance Skin Skin: No rash or changing moles Musc Musculoskeletal: Yes back problems; No arthritis, rheumatoid arthritis, gout or joint pain Cardio Cardiovascular: Yes high blood pressure; No murmur, pacemaker, heart disease, atrial fibrillation, heart attack, heart stent, palpitations, shortness of breath with exertion or chest pain Psych Psychiatric: Yes depression and anxiety; No hearing voices Resp Respiratory: No shortness of breath, No sleep apnea, No cough, Yes COPD, No asthma, No emphysema and No wheezing Gastro Gastrointestinal: Yes abdominal pain, Yes nausea or vomiting, No diarrhea, No constipation, No blood in stool, No acid reflux, No hemorrhoids, No ulcers, No gallbladder problem and No black,tarry stools Tay Hematologic: No blood thinners, No blood disorders, No bleeding, Yes anemia and No blood clots Neuro Neurologic: No system reviewed and no additional complaints, except as documented, No as per HPI, No abnormal gait, No abnormal hearing, No abnormal movements, No abnormal speech, No behavioral changes, No burning sensations, No confusion, No convulsions, No disequilibrium, No dizziness, No localized weakness, No frequent falls, No headache(s), No lack of coordination, No loss of vision, No memory loss, No numbness, No other visual disturbances, No radicular pain, No restless legs, No sensory deficit, No syncope, No tingling, No tremor(s), No weakness and No other Exam Const General: cooperative and no acute distress Nutritional Appearance: cachectic HENVA Head: normocephalic and atraumatic Neck Neck: supple Chest Other: Unable to appreciate bilateral lymphadenopathy well in the office-- did use bedside ultrasound did not appear enlarged on bedside ultrasound. Resp Effort Inspection: normal respiratory effort Cardio Rate: regular rate GI Inspection: non-distended Palpation: soft and nontender Skin General: no rashes or lesions noted Neuro General: CN's II-XI intact bilaterally Extrem Other: Patient does have enlarged left groin nodes on exam and easily seen with bedside ultrasound. Psych Mental Status: ment (more content not included)... Normal [facility] Folates, RBCon 12-24-2024 Fol.,Hemolysate > 620.0 Normal Not Estab. [facility] Comment on above: Performed By: #### L 300.3900, L300.4310, L101.9900, L3410.2400, L100.0500, L501.6710, L500.4050 #### [facility] [address] [place], [place], [id number] Folate, RBC > 2074 Normal >498 [facility] Comment on above: Result Comment: Perf ormed at: [facility] [address] [id number] Calender Machine Operator Helper: Jeronimo Means PhD, Phone: [phone] Performed By: #### L 300.3900, L300.4310, L101.9900, L3410.2400, L100.0500, L501.6710, L500.4050 #### [facility] [address] [place], [place], [id number] Hematocrit (Bld) [Volume fraction] 29.9 % Low 34.0-46.6 [facility] Comment on above: Performed By: #### L 300.3900, L300.4310, L101.9900, L3410.2400, L100.0500, L501.6710, L500.4050 #### [facility] [address] [place], [address] L501.0895on 12-24-2024 Calcium [Mass/Vol] 11.8 mg/dL High 7.6-11.0 [facility] Comment on above: Performed By: #### L 300.3900, L300.4310, L101.9900, L3410.2400, L100.0500, L501.6710, L500.4050 #### [facility] [address] [place], [address] L501.2276on 12-24-2024 Ionized Calcium 1.46 mmol/L High 1.09-1.30 [facility] Comment on above: Performed By: #### L 300.3900, L300.4310, L101.9900, L3410.2400, L100.0500, L501.6710, L500.4050 #### [facility] [address] [place], [address] PTHINon 12-24-2024 PTH 7 pg/mL Low 11-61 [facility] Comment on above: Performed By: #### L 300.3900, L300.4310, L101.9900, L3410.2400, L100.0500, L501.6710, L500.4050 #### [facility] [address] [place], [address] Urine Cultureon 12-24-2024 URC Presumptive E. coli [place] Count >100,000 Presumptive E. coli: REACTION Ampicillin Islt EDEN <=2 Ampicillin+Sulbac Islt EDEN <=2 S Cefepime Islt EDEN <=0.12 S cefTRIAXone Islt EDEN <=0.25 S Ciprofloxacin Islt EDEN <=0.06 S B-Lactamase Extended Susc Islt NEG Gentamicin Islt EDEN <=1 S levoFLOXacin Islt EDEN <=0.12 S Meropenem Islt EDEN <=0.25 S Nitrofurantoin Islt EDEN <=16 S Pip+Tazo Islt EDEN <=4 S TMP SMX Islt EDEN <=20 S Normal [facility] Comment on above: Performed By: #### L 300.3900, L300.4310, L101.9900, L3410.2400, L100.0500, L501.6710, L500.4050 #### [facility] [address] [place], [address] Absolute lymphocyte countOrd ered By: Anetamarissa Nogueira on 12-22-2024 Lymphocytes Auto (Unsp spec) [#/Vol] 1.08 10*3/uL 0.83-4.51 [facility] Absolute neutrophil countOrd ered By: [facility] on 12-22-2024 Neutrophils (Bld) [#/Vol] 3.0 10*3/uL 2.0-7.7 [facility] Amorphous sediment detection in urine sediment by light microscopyOrdered By: Ten Nogueira on 12-22-2024 Amorphous sediment LM Ql (Urine sed) 2+ [facility] Automated lymphocyte count a s percentage of total leukocytesOrdered By: Ten Nogueira on 12-22-2024 Lymphocytes/100 WBC Auto (Unsp spec) 20.8 % 19- [facility] Basophil percentageOrdered B y: Ten Nogueira on 12-22-2024 Basophils/100 WBC (Bld) 1.9 % High 0-1 [facility] Bilirubin Test strip Ql (U)O rdered By: Ten Nogueira on 12-22-2024 Bilirubin Ql (U) Negative Negative [facility] Bilirubin, totalOrdered By: [facility] on 12-22-2024 Bilirubin [Mass/Vol] 0.96 mg/dL 0.00-1.30 [facility] Blood manual differential co mment interpretation (narrative result)Ordered By: Ten Nogueira on 12-22-2024 Manual differential comment Johnathon (Bld) [Interp] SCANNED [facility] Blood polychromasia detectio n by light microscopyOrdered By: Ten Nogueira on 12-22-2024 Polychromasia LM Ql (Bld) 1+ [facility] CBC W/Diff, Automatedon 12-03 Anisocytosis Ql (Bld) 2+ Normal [facility] Comment on above: Performed By: #### L 300.3900, L300.4310, L101.9900, L3410.2400, L100.0500, L501.6710, L500.4050 #### [facility] [address] [place], [address] HYPOCHROMASIA 1+ Normal [facility] Comment on above: Performed By: #### L 300.3900, L300.4310, L101.9900, L3410.2400, L100.0500, L501.6710, L500.4050 #### [facility] [address] [place], [address] PLT EST MOD DEC Normal ADEQ [facility] Comment on above: Performed By: #### L 300.3900, L300.4310, L101.9900, L3410.2400, L100.0500, L501.6710, L500.4050 #### [facility] [address] [place], [address] POLYCHROMASIA 1+ Normal [facility] Comment on above: Performed By: #### L 300.3900, L300.4310, L101.9900, L3410.2400, L100.0500, L501.6710, L500.4050 #### [facility] [address] [place], [place], [id number] SMEAR COMMENT SCANNED Normal [facility] Comment on above: Performed By: #### L 300.3900, L300.4310, L101.9900, L3410.2400, L100.0500, L501.6710, L500.4050 #### [facility] [address] [place], [address] Comprehensive Metabolic Prof [facility] 12-22-2024 Albumin [Mass/Vol] 3.6 g/dL Normal 3.4-4.8 [facility] Comment on above: Performed By: #### L 300.3900, L300.4310, L101.9900, L3410.2400, L100.0500, L501.6710, L500.4050 #### [facility] [address] [place], [address] Albumin/Globulin [Mass ratio] 1.4 {ratio} Normal 0.9-2.4 [facility] Comment on above: Performed By: #### L 300.3900, L300.4310, L101.9900, L3410.2400, L100.0500, L501.6710, L500.4050 #### [facility] [address] [place], [address] ALK PHOS 290 U/L High 35-104 [facility] Comment on above: Performed By: #### L 300.3900, L300.4310, L101.9900, L3410.2400, L100.0500, L501.6710, L500.4050 #### [facility] [address] [place], [address] ALT [Catalytic activity/Vol] 138 U/L High <=34 [facility] Comment on above: Performed By: #### L 300.3900, L300.4310, L101.9900, L3410.2400, L100.0500, L501.6710, L500.4050 #### [facility] [address] [place], [address] AST [Catalytic activity/Vol] 197 U/L High <=31 [facility] Comment on above: Performed By: #### L 300.3900, L300.4310, L101.9900, L3410.2400, L100.0500, L501.6710, L500.4050 #### [facility] [address] [place], [address] Bilirubin [Mass/Vol] 0.96 mg/dL Normal 0.00-1.30 [facility] Comment on above: Performed By: #### L 300.3900, L300.4310, L101.9900, L3410.2400, L100.0500, L501.6710, L500.4050 #### [facility] [address] [place], [address] BUN/CRE 22.3 RATIO High 10-20 [facility] Comment on above: Performed By: #### L 300.3900, L300.4310, L101.9900, L3410.2400, L100.0500, L501.6710, L500.4050 #### [facility] [address] [place], [address] Calcium [Mass/Vol] 12.2 mg/dL High 7.6-11.0 [facility] Comment on above: Performed By: #### L 300.3900, L300.4310, L101.9900, L3410.2400, L100.0500, L501.6710, L500.4050 #### [facility] [address] [place], [address] Chloride [Moles/Vol] 99 mmol/L Normal 98-108 [facility] Comment on above: Performed By: #### L 300.3900, L300.4310, L101.9900, L3410.2400, L100.0500, L501.6710, L500.4050 #### [facility] [address] [place], [address] CO2 [Moles/Vol] 25.9 mmol/L Normal 21.0-32.0 [facility] Comment on above: Performed By: #### L 300.3900, L300.4310, L101.9900, L3410.2400, L100.0500, L501.6710, L500.4050 #### [facility] [address] [place], [address] Creatinine [Mass/Vol] 0.99 mg/dL Normal 0.70-1.20 [facility] Comment on above: Performed By: #### L 300.3900, L300.4310, L101.9900, L3410.2400, L100.0500, L501.6710, L500.4050 #### [facility] [address] [place], [address] GAP 18 High 5-15 [facility] Comment on above: Performed By: #### L 300.3900, L300.4310, L101.9900, L3410.2400, L100.0500, L501.6710, L500.4050 #### [facility] [address] [place], [address] GFR/1.73 sq M.predicted among non-blacks MDRD (S/P/Bld) [Vol rate/Area] 62 mL/min/{1.73_m2} Normal >60 [facility] Comment on above: Result Comment: mL/m in/1.73m2 CKD-EPI Creatinine Equation (2020) Performed By: #### L 300.3900, L300.4310, L101.9900, L3410.2400, L100.0500, L501.6710, L500.4050 #### [facility] [address] [place], [address] Globulin (S) [Mass/Vol] 2.6 g/dL Normal 2.2-4.2 [facility] Comment on above: Performed By: #### L 300.3900, L300.4310, L101.9900, L3410.2400, L100.0500, L501.6710, L500.4050 #### [facility] [address] [place], [address] Glucose [Mass/Vol] 83 mg/dL Normal 70-99 [facility] Comment on above: Performed By: #### L 300.3900, L300.4310, L101.9900, L3410.2400, L100.0500, L501.6710, L500.4050 #### [facility] [address] [place], [address] Potassium [Moles/Vol] 3.9 mmol/L Normal 3.3-5.1 [facility] Comment on above: Performed By: #### L 300.3900, L300.4310, L101.9900, L3410.2400, L100.0500, L501.6710, L500.4050 #### [facility] [address] [place], [address] Sodium [Moles/Vol] 143 mmol/L Normal 133-145 [facility] Comment on above: Performed By: #### L 300.3900, L300.4310, L101.9900, L3410.2400, L100.0500, L501.6710, L500.4050 #### [facility] [address] [place], [address] T PROT 6.2 g/dL Normal 5.9-8.4 [facility] Comment on above: Performed By: #### L 300.3900, L300.4310, L101.9900, L3410.2400, L100.0500, L501.6710, L500.4050 #### [facility] [address] [place], [address] Urea nitrogen [Mass/Vol] 22 mg/dL High 4-19 [facility] Comment on above: Performed By: #### L 300.3900, L300.4310, L101.9900, L3410.2400, L100.0500, L501.6710, L500.4050 #### [facility] [address] [place], [address] Eosinophil percentageOrdered By: Ten Nogueira on 12-22-2024 Eosinophils/100 WBC (Bld) 0.8 % 0-5 [facility] Erythrocyte distribution wid th ratioOrdered By: Ten Nogueira on 12-22-2024 Erythrocyte distribution width (RBC) [Ratio] 18.1 % High 11.6-14.6 [facility] Erythrocyte distribution wid th standard deviationOrdered By: Ten Nougeira on 12-22-2024 Erythrocyte distribution width (RBC) [Ratio] 65.2 fl High 35.1-43.9 [facility] Erythrocyte folate measureme nt with hematocritOrdered By: Ten Nogueira on 12-22-2024 Hematocrit (Bld) [Volume fraction] 29.9 % Low 34.0-46.6 [facility] Ferritinon 12-22-2024 Ferritin [Mass/Vol] 630 ng/mL High 22-378 [facility] Comment on above: Performed By: #### L 300.3900, L300.4310, L101.9900, L3410.2400, L100.0500, L501.6710, L500.4050 #### [facility] [address] [place], [address] HIVon 12-22-2024 HIV Non-Reactive Normal Nonreactive [facility] Comment on above: Result Comment: Non- Reactive Reactive Repeatedly reactive samples must be confirmed according to CDC recommended confirmatory algorithms. The subresults for either HIVAG or AHIV can be used as an aid in the selection of the confirmation algorithm for reactive samples. Send out specimens with Reactive results to [facility] for confirmation. Order the HIV antibody detection and differentiation: #[id number] Performed By: #### L 300.3900, L300.4310, L101.9900, L3410.2400, L100.0500, L501.6710, L500.4050 #### [facility] [address] [place], [address] Hematocrit Auto (Bld) [Volum e fraction]Ordered By: Ten Nogueira on 12-22-2024 Hematocrit (Bld) [Volume fraction] 31.6 % Low 37-47 [facility] Hemoglobin measurementOrdere d By: Ten Nogueira on 12-22-2024 Hemoglobin (Bld) [Mass/Vol] 9.7 g/dL Low 12.0-15.0 [facility] Hypochromatic red blood cell detectionOrdered By: Ten Nogueira on 12-22-2024 Hypochromia Ql (Bld) 1+ [facility] Immature granulocytes/100 WB C Auto (Bld)Ordered By: Ten Nogueira on 12-22-2024 Immature granulocytes/100 WBC (Bld) 2.300 % High 0.0-0.9 [facility] Comment on above: IG% - Immature Granu locytes (promyelocytes, myelocytes and metamyelocytes) > 1% indicates that a LEFT SHIFT is Present. Immature platelet percentage Ordered By: Ten Nogueira on 12-22-2024 Platelets reticulated/100 platelets Auto (Bld) 3.2 % 1.0-7.9 [facility] Comment on above: Low PLT + Low IPF [place] ggest a bone marrow production disorderLow PLT + high IPF suggests peripheral destruction(e.g.ITP, TTP, HIT, DIC, autoimmune) or bone marrow recoveryTrending of serial IPF measurements is recommended when evaluating for bone marrow responesValue above normal range indicates an increase in RBC cellular response from bone marrow. Iron measurement (mass/mass) Ordered By: Ten Nogueira on 12-22-2024 Iron (Unsp spec) [Mass/Mass] 49 ug/dL Low 50-170 [facility] Iron+Iron Binding Capacityon 12-22-2024 Iron [Mass/Vol] 49 ug/dL Low 50-170 [facility] Comment on above: Performed By: #### L 300.3900, L300.4310, L101.9900, L3410.2400, L100.0500, L501.6710, L500.4050 #### [facility] [address] [place], [place], [id number] (7[address] IRON SATURATION 19.7 Normal 13-59 [facility] Comment on above: Performed By: #### L 300.3900, L300.4310, L101.9900, L3410.2400, L100.0500, L501.6710, L500.4050 #### [facility] [address] [place], [address] TIBC 249 ug/dL Low 250-450 [facility] Comment on above: Performed By: #### L 300.3900, L300.4310, L101.9900, L3410.2400, L100.0500, L501.6710, L500.4050 #### [facility] [address] [place], [address] UIBC 200 ug/dL Low 228-428 [facility] Comment on above: Performed By: #### L 300.3900, L300.4310, L101.9900, L3410.2400, L100.0500, L501.6710, L500.4050 #### [facility] [address] [place], [address] Ketones Test strip Ql (U)Ord ered By: Ten Nogueira on 12-22-2024 Ketones Ql (U) Negative Negative [facility] LDHon 12-22-2024 LDH 446 U/L High 84-246 [facility] Comment on above: Order Comment: 1 Performed By: #### L 300.3900, L300.4310, L101.9900, L3410.2400, L100.0500, L501.6710, L500.4050 #### [facility] [address] [place], [address] Laboratory - Chemistry and C hemistry - challengeOrdered By: Ten Nogueira on 12-22-2024 AST [Catalytic activity/Vol] 197 U/L High <32 [facility] Laboratory - Hematology and Cell countsOrdered By: Ten Nogueira on 12-22-2024 Anisocytosis Ql (Bld) 2+ [facility] Lactate dehydrogenase (LDH) measurementOrdered By: Ten Nogueira on 12-22-2024 LDH [Catalytic activity/Vol] 446 U/L High 84-246 [facility] MCV (mean corpuscular volume ) determinationOrdered By: Ten Nogueira on 12-22-2024 MCV (RBC) [Entitic vol] 99.4 fL High 81-99 [facility] Magnesiumon 12-22-2024 Magnesium [Mass/Vol] 1.8 mg/dL Normal 1.5-2.2 [facility] Comment on above: Performed By: #### L 300.3900, L300.4310, L101.9900, L3410.2400, L100.0500, L501.6710, L500.4050 #### [facility] [address] [place], [place], [id number] Magnesium measurement (mass/ volume)Ordered By: Ten Nogueira on 12-22-2024 Magnesium (Unsp spec) [Mass/Vol] 1.8 mg/dL 1.5-2.2 [facility] Mean corpuscular hemoglobin (MCH) determinationOrdered By: Ten Nogueira on 12-22-2024 MCH (RBC) [Entitic mass] 30.5 pg 27.0-32.0 [facility] Mean corpuscular hemoglobin concentration (MCHC) determinationOrdered By: Ten Nogueira on 12-22-2024 MCHC (RBC) [Mass/Vol] 30.7 g/dL Low 32-36 [facility] Mean platelet volume determi nationOrdered By: Ten Nogueira on 12-22-2024 Platelet mean volume (Bld) [Entitic vol] 10.9 fL 6.2-12.0 [facility] Microscopic analysis of urin e for red blood cells (RBC)Ordered By: Ten Nogueira on 12-22-2024 Microscopic analysis of urine for red blood cells (RBC) 0-5 SEEN /hpf 0-5 [facility] Monocyte percentageOrdered B y: Ten Nogueira on 12-22-2024 Monocytes/100 WBC (Bld) 16.0 % High 0-10 [facility] Mucus LM Ql (Urine sed)Order ed By: Ten Nogueira on 12-22-2024 Mucus Ql (Urine sed) 0 SEEN /hpf [facility] Neutrophil percentageOrdered By: Ten Nogueira on 12-22-2024 Neutrophils/100 WBC (Bld) 58.2 % 47-70 [facility] Nitrite Test strip Ql (U)Ord ered By: Ten Nogueira on 12-22-2024 Nitrite Ql (U) Positive High Negative [facility] No Panel InformationOrdered By: Ten Nogueira on 12-22-2024 HIV (1&2) Antibody Non-Reactive Nonreactive [facility] Comment on above: Non-ReactiveReactive Repeatedly reactive samples must be confirmed according to CDC recommended confirmatory algorithms. The subresults for either HIVAG or AHIV can be used as an aid in the selection of the confirmation algorithm for reactive samples.Send out specimens with Reactive results to [facility] for confirmation.Order the HIV antibody detection and differentiation: #[id number] Unsaturated Iron Binding Capacity 200 ug/dL Low 228-428 [facility] Nucleated red blood cell per centageOrdered By: Ten Nogueira on 12-22-2024 Nucleated RBC/100 WBC (Bld) [Ratio] 0.4 % 0-5 [facility] Oncology Visit Reporton 12-03 Oncology Visit Report [facility] [address] [place], [place] [address] [address] OFFICE VISIT Date of Service: 12/22/24 1424 MR#: [id number] Acct: [id number] Name: ESTELLA CHAO Rep #: [id number] : 1955 From: Ten Nogueira MD Age/Sex: 69/F Location: [facility] [place] Status: Signed HPI Subjective Date of Service 12/22/24 Chief Complaint Abdominal distention, History of Present Illness 69-year-old female who presents with a few months history of increasing abdominal distention and left lower quadrant discomfort. She has been a smoker since her teenage, no excess alcohol. She has not had any persistent fevers or drenching night sweats. She underwent blood work that suggested possible celiac disease and was placed on a gluten-free diet and this is when she lost weight. August 25, 2024 CT abdomen and pelvis with contrast showed massive splenomegaly, fatty liver, bilateral inguinal lymph nodes but no other pathologically enlarged lymph nodes in the abdomen and pelvis, heterogeneous enhancement of both kidneys but no masses and nonobstructing renal stones within the right kidney. The remainder of abdominal solid organs and bowel appeared normal. In October 2024 she was seen by Dr. Bobby who performed an upper GI endoscopy with duodenal biopsies that showed no evidence for celiac disease and once the dietary restriction was lifted up she has been regaining the lost weight. December 16, 2024 MRI of the abdomen: Gross splenomegaly, was a small wedge-shaped area of enhancement suggestive of a splenic infarct, liver was unremarkable, upper abdominal adenopathy at the hilum of the spleen, left para-aortic space. Federico hepatis adenopathy was estimated to be 2.6 cm in axis. [facility] Medical History (Updated 12/22/24 @ 15:[address] Ten Nogueira MD) Lymphadenopathy Depression Emphysema lung COPD (chronic obstructive pulmonary disease) Postmenopausal IBS (irritable bowel syndrome) Positive colorectal cancer screening using Cologuard test Anemia Acute distention of stomach Abdominal pain Hypertension Vitamin D deficiency Splenomegaly Family History Father Alcohol abuse Mother Heart disease Depression Social History (Updated 12/22/24 @ 14:32 by Allegra Hylton) Smoking Status: Light Smoker (<10/day) Tobacco: How many years used: 50 alcohol intake: never substance use type: does not use ROS Constitutional Constitutional: Reports systems reviewed and no addt'l complaints, except as documented, as per HPI and fatigue; Denies anorexia, fever(s) or weight loss Eyes Eyes: Reports systems reviewed and no addt'l complaints, except as documented ENT HEENT: Reports systems reviewed and no addt'l complaints, except as documented; Denies mouth lesions Cardiovascular Cardiovascular: Reports systems reviewed and no addt'l complaints, except as documented and edema; Denies chest pain with activity Respiratory/Chest Respiratory/Chest: Reports systems reviewed and no addt'l complaints, except as documented; Denies cough, dyspnea, hemoptysis or breast mass Gastrointestinal Gastrointestinal: Reports systems reviewed and no addt'l complaints, except as documented, as per HPI, abdominal pain, bloating and other Details: Left upper quadrant discomfort, she became aware of the enlarged spleen after it was brought to her attention by Dr. Bobby. ; Denies change in bowel habits, diarrhea, dyspepsia, dysphagia, excessive flatus, heartburn, hematochezia or melena Genitourinary Genitourinary: Reports systems reviewed and no addt'l complaints, except as documented, dysuria, urinary frequency and urinary urgency Musculoskeletal Musculoskeletal: Reports systems reviewed and no addt'l complaints, except as documented; Denies back pain Integumentary Integumentary: Reports systems reviewed and no addt'l complaints, except as documented; Denies new lesions Neurologic Neurologic: Reports systems reviewed and no addt'l complaints, except as documented; Denies focal weakness or paresthesias Psychiatric Psychiatric: Reports systems reviewed and no addt'l complaints, except as documented Endocrine Endocrinology: Reports systems reviewed and no addt'l complaints, except as documented Hematologic/Lymphatic Hematologic/Lymphatic : Reports other Details: Patient herself is unaware of enlarged lymph nodes. ; Denies lymphadenopathy Allergic/Immunologic Allergic/Immunologic: Reports systems reviewed and no addt'l complaints, except as documented Intake Vital Signs 12/07/24 12:37 12/22/24 14:25 12/22/24 14:33 Height 48 ft 48 ft 5 ft 6 in Weight: 50.916 kg BMI 18.1 BP 104/65 Blood Pressure Location Lt brachial Position Sitting Respiration 18 Pulse 103 H Pulse Source Monitor Temp 98.6 F Temperature Source (more content not included)... Normal [facility] Phosphoruson 12-22-2024 Phosphate [Mass/Vol] 2.8 mg/dL Normal 2.7-4.5 [facility] Comment on above: Performed By: #### L 300.3900, L300.4310, L101.9900, L3410.2400, L100.0500, L501.6710, L500.4050 #### [facility] [address] [place], [address] Platelet countOrdered By: Felipe Nogueira on 12-22-2024 Platelets (Bld) [#/Vol] 85 10*3/uL Low 150-450 [facility] Platelet estimateOrdered By: Ten Nogueira on 12-22-2024 Platelets LM Ql (Bld) MOD DEC ADEQ [facility] Protein Test strip Ql (U)Ord ered By: Ten Nogueira on 12-22-2024 Protein Ql (U) 30 mg/dl High Negative [facility] RBC Auto (Bld) [#/Vol]Ordere d By: Ten Nogueira on 12-22-2024 RBC (Bld) [#/Vol] 3.18 10*6/uL Low 4.2-5.4 [facility] Retic Panelon 12-22-2024 IM RET FRACTION 30.40 High 3.00-15.90 [facility] Comment on above: Performed By: #### L 300.3900, L300.4310, L101.9900, L3410.2400, L100.0500, L501.6710, L500.4050 #### [facility] [address] [place], [address] IPF 3.2 Normal 1.0-7.9 [facility] Comment on above: Result Comment: Low PLT + Low IPF suggest a bone marrow production disorder Low PLT + high IPF suggests peripheral destruction (e.g.ITP, TTP, HIT, DIC, autoimmune) or bone marrow recovery Trending of serial IPF measurements is recommended when evaluating for bone marrow respones Value above normal range indicates an increase in RBC cellular response from bone marrow. Performed By: #### L 300.3900, L300.4310, L101.9900, L3410.2400, L100.0500, L501.6710, L500.4050 #### [facility] [address] [place], [address] RET-HE 34.4 pg Normal 30-35 [facility] Comment on above: Performed By: #### L 300.3900, L300.4310, L101.9900, L3410.2400, L100.0500, L501.6710, L500.4050 #### [facility] [address] [place], [address] Retic Count 3.74 High 0.5-1.5 [facility] Comment on above: Performed By: #### L 300.3900, L300.4310, L101.9900, L3410.2400, L100.0500, L501.6710, L500.4050 #### [facility] [place], [address] Reticulocyte hemoglobin equi valent (RET-He) measurementOrdered By: Ten Nogueira on 12-22-2024 Hemoglobin (Reticulocytes) [Entitic mass] 34.4 pg 30-35 [facility] Reticulocytes Auto (Bld) [#/ Vol]Ordered By: Ten Nogueira on 12-22-2024 Reticulocytes/100 RBC (Bld) 3.74 % High 0.5-1.5 [facility] Serum globulin measurementOr dered By: Ten Nogueira on 12-22-2024 Globulin (S) [Mass/Vol] 2.6 g/dL 2.2-4.2 [facility] Serum or plasma alanine baker otransferase (ALT) measurementOrdered By: Ten Nogueira on 12-22-2024 ALT [Catalytic activity/Vol] 138 U/L High <35 [facility] Serum or plasma albumin matt urement (mass/volume)Ordered By: Ten Nogueira on 12-22-2024 Albumin [Mass/Vol] 3.6 g/dL 3.4-4.8 [facility] Serum or plasma albumin/glob ulin mass ratioOrdered By: Ten Nogueira on 12-22-2024 Albumin/Globulin [Mass ratio] 1.4 {ratio} 0.9-2.4 [facility] Serum or plasma alkaline adama sphatase measurementOrdered By: Ten Nogueira on 12-22-2024 ALP [Catalytic activity/Vol] 290 U/L High 35-104 [facility] Serum or plasma ferritin claudia surement (mass/volume)Ordered By: Ten Nogueira on 12-22-2024 Ferritin [Mass/Vol] 630 ng/mL High 22-378 [facility] Serum or plasma iron saturat ion measurement (mass fraction)Ordered By: Ten Nogueira on 12-22-2024 Iron saturation [Mass fraction] 19.7 % 13-59 [facility] Squamous epithelial cells de tection in urine sediment by light microscopyOrdered By: Ten Nogueira on 12-22-2024 Epithelial cells.squamous LM Ql (Urine sed) 0-5 SEEN /hpf 5-10 [facility] Total proteinOrdered By: Ellis Nogueira on 12-22-2024 Protein [Mass/Vol] 6.2 g/dL 5.9-8.4 [facility] Urinalysis, Completeon 12-22 AMORPHOUS 2+ Normal [facility] Comment on above: Order Comment: MAGDIEL CTOR TO SPECIFY Performed By: #### L 300.3900, L300.4310, L101.9900, L3410.2400, L100.0500, L501.6710, L500.4050 #### [facility] [address] [place], [address] EPI,SQUAMOUS 0-5 SEEN Normal 07-11 [facility] Comment on above: Order Comment: MAGDIEL CTOR TO SPECIFY Performed By: #### L 300.3900, L300.4310, L101.9900, L3410.2400, L100.0500, L501.6710, L500.4050 #### [facility] [address] [place], [address] BACTERIA 2+ /hpf Normal None Seen [facility] Comment on above: Order Comment: AMGDIEL CTOR TO SPECIFY Performed By: #### L 300.3900, L300.4310, L101.9900, L3410.2400, L100.0500, L501.6710, L500.4050 #### [facility] [address] [place], [address] RBC 0-5 SEEN Normal 0-5 [facility] Comment on above: Order Comment: MAGDIEL CTOR TO SPECIFY Performed By: #### L 300.3900, L300.4310, L101.9900, L3410.2400, L100.0500, L501.6710, L500.4050 #### [facility] [address] [place], [address] WBC 10-25 SEEN Normal 0-5 [facility] Comment on above: Order Comment: MAGDIEL CTOR TO SPECIFY Performed By: #### L 300.3900, L300.4310, L101.9900, L3410.2400, L100.0500, L501.6710, L500.4050 #### [facility] [address] [place], [address] Mucus Ql (Urine sed) 0 SEEN Normal [facility] Comment on above: Order Comment: MAGDIEL CTOR TO SPECIFY Performed By: #### L 300.3900, L300.4310, L101.9900, L3410.2400, L100.0500, L501.6710, L500.4050 #### [facility] [address] [place], [place], [id number] Urine clarityOrdered By: Ellis Nogueira on 12-22-2024 Clarity (U) Cloudy Clear [facility] Urine color determinationOrd ered By: Ten Nogueira on 12-22-2024 Color (U) Yellow Yellow [facility] Urine cultureOrdered By: Ellis Nogueira on 12-22-2024 Bacteria identified Cx Nom (U) Presumptive E. coli Abnormal [facility] Urine glucose detectionOrder ed By: Ten Nogueira on 12-22-2024 Glucose Ql (U) Normal mg/dl Normal [facility] Urine leukocyte esterase det ection by dipstickOrdered By: Ten Nogueira on 12-22-2024 Leukocyte esterase Test strip Ql (U) 25 /ul High Negative [facility] Urine pHOrdered By: Ten Nogueira on 12-22-2024 pH (U) 6.0 [pH] 5.0 - 8.0 [facility] Urine sediment bacteria coun t by microscopy (number/high power field)Ordered By: Ten Nogueira on 12-22-2024 Bacteria LM.HPF (Urine sed) [#/Area] 2 /[HPF] None Seen [facility] Urine specific gravity measu rementOrdered By: Ten Nogueira on 12-22-2024 Specific gravity (U) [Rel density] 1.020 1.002-1.030 [facility] Urine urobilinogen measureme ntOrdered By: Ten Nogueira on 12-22-2024 Urobilinogen Ql (U) Normal mg/dl Normal [facility] Vitamin B12on 12-22-2024 Cobalamin (Vitamin B12) [Mass/Vol] 896 pg/mL Normal 180-914 [facility] Comment on above: Performed By: #### L 300.3900, L300.4310, L101.9900, L3410.2400, L100.0500, L501.6710, L500.4050 #### [facility] [address] [place], [address] Vitamin B12 ser/plasOrdered By: Ten Nogueira on 12-22-2024 Cobalamin (Vitamin B12) [Mass/Vol] 896 pg/mL 180-914 [facility] White blood cell (WBC) count Ordered By: Ten Nogueira on 12-22-2024 WBC (Bld) [#/Vol] 5.2 10*3/uL 4.4-11.0 [facility] White blood cell countOrdere d By: Ten Nogueira on 12-22-2024 White blood cell count 10-25 SEEN /hpf 0-5 [facility] MRI LIVERon 12-18-2024 MRI LIVER ORIGINAL EXAMINATION: MRI OF THE ABDOMEN LIMITED without and with CONTRAST, 12/16/2024 3:31 pm TECHNIQUE: Multiplanar multisequence MRI of the abdomen limited was performed without and with the administration of intravenous contrast. COMPARISON: None. 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 There is gross splenomegaly and the spleen measures 22 cm in length. At the lateral periphery of the spleen, there are small somewhat wedge-shaped areas of diminished enhancement present. The finding is compatible with a small splenic infarct. I do not identify any other focal splenic parenchymal lesions. The liver is unremarkable and it shows no restricted diffusion, abnormal enhancement, or focal lesion. Upper abdominal adenopathy is evident. Abnormal lymph nodes are present at the hilum of the spleen, the left para-aortic space, and most prominently at the federico hepatis. Federico hepatis adenopathy is on the order of 2.6 cm short axis. No additional contributory abnormality seen. IMPRESSION: 1. Gross splenomegaly with small peripheral splenic infarcts. 2. No focal liver lesion seen. 3. Pathologic adenopathy, especially at the federico hepatis. The findings are compatible with lymphoproliferative disorder, especially in conjunction with splenomegaly. Interpreted by: Braeden Huynh MD Preliminary Report By: Braeden Huynh MD Electronically signed By Braeden Huynh MD Dictated Date: 12/18/2024 9:23:58 AM Prelim Date: 12/18/2024 9:28:43 AM Sign Date: 12/18/2024 9:28:43 AM Ordering Provider: RANJITH LING Normal [facility] Absolute lymphocyte countOrd ered By: Crispin Subramanian on 12-07-2024 Lymphocytes Auto (Unsp spec) [#/Vol] 0.81 10*3/uL Low 0.83-4.51 [facility] Absolute neutrophil countOrd ered By: Crispinnakita Subramanian on 12-07-2024 Neutrophils (Bld) [#/Vol] 2.9 10*3/uL 2.0-7.7 [facility] Anion gap in Serum or Plasma Ordered By: Crispinnakita Subramanian on 12-07-2024 Anion gap [Moles/Vol] 15 mmol/L 5-15 [facility] Automated lymphocyte count a s percentage of total leukocytesOrdered By: Crispinnakita Subramanian on 12-07-2024 Lymphocytes/100 WBC Auto (Unsp spec) 17.7 % Low 19-41 [facility] BUN/creatinine ratioOrdered By: Crispinnakita Subramanian on 12-07-2024 Urea nitrogen/Creatinine [Mass ratio] 22.6 mg/mg High 10-20 [facility] Basophil percentageOrdered B y: Crispinnakita Subramanian on 12-07-2024 Basophils/100 WBC (Bld) 1.5 % High 0-1 [facility] Bilirubin, totalOrdered By: Crispinnakita Subarmanian on 12-07-2024 Bilirubin [Mass/Vol] 0.73 mg/dL 0.00-1.30 [facility] CBC W/Diff, Automatedon 10-0 PLT EST MOD DEC Normal ADEQ [facility] Comment on above: Performed By: #### L 300.3900, L300.4310, L101.9900, L3410.2400, L100.0500, L501.6710, L500.4050 #### [facility] [address] [place], [address] CRPon 12-07-2024 C-REACTIVE PROT 56.00 mg/L High 0.0-3.0 [facility] Comment on above: Performed By: #### L 300.3900, L300.4310, L101.9900, L3410.2400, L100.0500, L501.6710, L500.4050 #### [facility] [address] [place], [address] Carbon dioxide, total [Moles /volume] in Central venous bloodOrdered By: Crispinnakita Subramanian on 12-07-2024 CO2 [Moles/Vol] 25.6 mmol/L 21.0-32.0 [facility] Chloride assayOrdered By: Ug o Subramanian on 12-07-2024 Chloride [Moles/Vol] 101 mmol/L 98-108 [facility] Comprehensive Metabolic Prof ilon 12-07-2024 Albumin [Mass/Vol] 3.4 g/dL Normal 3.4-4.8 [facility] Comment on above: Performed By: #### L 300.3900, L300.4310, L101.9900, L3410.2400, L100.0500, L501.6710, L500.4050 #### [facility] [address] [place], [address] Albumin/Globulin [Mass ratio] 1.2 {ratio} Normal 0.9-2.4 [facility] Comment on above: Performed By: #### L 300.3900, L300.4310, L101.9900, L3410.2400, L100.0500, L501.6710, L500.4050 #### [facility] [address] [place], [address] ALK PHOS 189 U/L High 35-104 [facility] Comment on above: Performed By: #### L 300.3900, L300.4310, L101.9900, L3410.2400, L100.0500, L501.6710, L500.4050 #### [facility] [address] [place], [address] ALT [Catalytic activity/Vol] 99 U/L High <=34 [facility] Comment on above: Performed By: #### L 300.3900, L300.4310, L101.9900, L3410.2400, L100.0500, L501.6710, L500.4050 #### [facility] [address] [place], [address] AST [Catalytic activity/Vol] 121 U/L High <=31 [facility] Comment on above: Performed By: #### L 300.3900, L300.4310, L101.9900, L3410.2400, L100.0500, L501.6710, L500.4050 #### [facility] [address] [place], [address] Bilirubin [Mass/Vol] 0.73 mg/dL Normal 0.00-1.30 [facility] Comment on above: Performed By: #### L 300.3900, L300.4310, L101.9900, L3410.2400, L100.0500, L501.6710, L500.4050 #### [facility] [address] [place], [address] BUN/CRE 22.6 RATIO High 10-20 [facility] Comment on above: Performed By: #### L 300.3900, L300.4310, L101.9900, L3410.2400, L100.0500, L501.6710, L500.4050 #### [facility] [address] [place], [address] Calcium [Mass/Vol] 10.6 mg/dL Normal 7.6-11.0 [facility] Comment on above: Performed By: #### L 300.3900, L300.4310, L101.9900, L3410.2400, L100.0500, L501.6710, L500.4050 #### [facility] [address] [place], [address] Chloride [Moles/Vol] 101 mmol/L Normal 98-108 [facility] Comment on above: Performed By: #### L 300.3900, L300.4310, L101.9900, L3410.2400, L100.0500, L501.6710, L500.4050 #### [facility] [address] [place], [address] CO2 [Moles/Vol] 25.6 mmol/L Normal 21.0-32.0 [facility] Comment on above: Performed By: #### L 300.3900, L300.4310, L101.9900, L3410.2400, L100.0500, L501.6710, L500.4050 #### [facility] [address] [place], [address] Creatinine [Mass/Vol] 1.25 mg/dL High 0.70-1.20 [facility] Comment on above: Performed By: #### L 300.3900, L300.4310, L101.9900, L3410.2400, L100.0500, L501.6710, L500.4050 #### [facility] [address] [place], [address] ECRCL 1.68 ml/min Invalid Interpretation Code 50-250 [facility] Comment on above: Performed By: #### L 300.3900, L300.4310, L101.9900, L3410.2400, L100.0500, L501.6710, L500.4050 #### [facility] [address] [place], [address] GAP 15 Normal 5-15 [facility] Comment on above: Performed By: #### L 300.3900, L300.4310, L101.9900, L3410.2400, L100.0500, L501.6710, L500.4050 #### [facility] [address] [place], [address] GFR/1.73 sq M.predicted among non-blacks MDRD (S/P/Bld) [Vol rate/Area] 47 mL/min/{1.73_m2} Low >60 [facility] Comment on above: Result Comment: mL/m in/1.73m2 CKD-EPI Creatinine Equation (2020) Performed By: #### L 300.3900, L300.4310, L101.9900, L3410.2400, L100.0500, L501.6710, L500.4050 #### [facility] [address], [address] Globulin (S) [Mass/Vol] 2.9 g/dL Normal 2.2-4.2 [facility] Comment on above: Performed By: #### L 300.3900, L300.4310, L101.9900, L3410.2400, L100.0500, L501.6710, L500.4050 #### [facility] [address] [place], [address] Glucose [Mass/Vol] 90 mg/dL Normal 70-99 [facility] Comment on above: Performed By: #### L 300.3900, L300.4310, L101.9900, L3410.2400, L100.0500, L501.6710, L500.4050 #### [facility] [address] [place], [address] Potassium [Moles/Vol] 3.9 mmol/L Normal 3.3-5.1 [facility] Comment on above: Performed By: #### L 300.3900, L300.4310, L101.9900, L3410.2400, L100.0500, L501.6710, L500.4050 #### [facility] [address] [place], [address] Sodium [Moles/Vol] 142 mmol/L Normal 133-145 [facility] Comment on above: Performed By: #### L 300.3900, L300.4310, L101.9900, L3410.2400, L100.0500, L501.6710, L500.4050 #### [facility] [address] [place], [address] T PROT 6.3 g/dL Normal 5.9-8.4 [facility] Comment on above: Performed By: #### L 300.3900, L300.4310, L101.9900, L3410.2400, L100.0500, L501.6710, L500.4050 #### [facility] [address], [address] Urea nitrogen [Mass/Vol] 28 mg/dL High 4-19 [facility] Comment on above: Performed By: #### L 300.3900, L300.4310, L101.9900, L3410.2400, L100.0500, L501.6710, L500.4050 #### [facility] [address] [place], [address] Emergency Department Summary on 12-07-2024 Emergency Department Summary [facility] Medical Records Department [address] [place] [address] Emergency Department Summary 12/07/24 MR#: [id number] Acct: [id number] Name: ESTELLA CHAO Rep #: [id number] : [id number] From: Crispin Subramanian MD PCP: Ranjith Ling, HOSPITAL PHARMACIST-C Status:DEP ER Location: ED HPI History of Present Illness Chief Complaint: Fatigue Detail of Chief Complaint: Patient sent in for fatigue, weight loss, worsening renal function, abdomin Informant: patient Onset/Context/Timing Onset: Month(s) Context: Gradual Onset Timing: Intermittent and Waxes and wanes Quality: Abdominal distention, discomfort, and multiple other symptoms Location: Multiple Current Severity: Mild Maximum Severity: Moderate Worsened by: Nothing Relieved by: Nothing Associated Symptoms Associated Symptoms: HPI narrative Narrative Narrative: Patient is a 68-year-old woman. She has history of weight loss, night sweats, abdominal distention, portal hypertension, bilateral edema, stage IV kidney disease and left renal renal stone. She was sent in for her pain. She was seen at [facility]. Patient is scheduled for an MRI this coming Saturday. Patient stated she was told she did have a hematology consult. There was a note attached to her chart. Apparently she was seen 2 weeks ago and there was concern for T-cell l lymphoma. Patient had unintentional weight loss. She complains of fatigue, abdominal bloating. She denies change in color, consistency or caliber of her stool. She denies frequency of bowel movements. She denies urologic symptoms. She denies dark-colored urine. She denies bone pain. She does not report night sweats. She denies headache, visual, ocular auditory symptoms. She has trouble with speech or swallowing. She denies chest pain, pressure, tightness or heaviness. She denies dyspnea or [place] exertion. Denies orthopnea or PND. She does report swelling of her ankles recently. Patient has no history of alcohol use or cirrhosis. Prior similar symptoms: Yes Recent Illness/Hospitalizati on: Yes (Seen by PCP approximately 2 weeks ago. Her creatinine at that time was ely) [facility] Medical History Depression Emphysema lung COPD (chronic obstructive pulmonary disease) Postmenopausal Lymph node enlargement IBS (irritable bowel syndrome) Positive colorectal cancer screening using Cologuard test Anemia Acute distention of stomach Abdominal pain Celiac disease Hypertension Vitamin D deficiency Splenomegaly Home Medications ???Medication ???Instructions ???Recorded ???Last Taken ???Type cholecalciferol (vitamin D3) 1,250 1,250 mcg PO QMONTH [facility] 11/26/24 11/25/24 History mcg (50,000 unit) capsule lisinopril 10 1 tab PO QDAY BLOOD PRESSURE 11/2612/07/24 History mg-hydrochlorothiazid e 12.5 mg tablet vitamin B complex 1 tab PO QDAY FOR ENERGY 11/26/24 12/06/24 History mv-mn [id number] sh 1 tab PO DAILY SUPPLEMENT 12/07/24 12/06/24 History pantoprazole 40 mg tablet,delayed 40 mg PO DAILY STOMACH 12/07/24 1 History release Allergy/AdvReac Type Severity Reaction Status Date / Time moxifloxacin (From Avelox) Allergy Unknown unknown Verified 12/07/24 12:37 terbinafine Allergy Unknown rash Verified 12/07/24 12:37 Family History Father Alcohol abuse Mother Heart disease Depression Social History Smoking Status: Current every day smoker tobacco type: cigarettes alcohol intake: never ROS ROS ED Constitutional Constitutional ED: Reports sweats and weight loss; Denies chills, fever(s) or subjective Eyes Eyes: Denies blurry vision, change in vision or diplopia ENT ENT ED: Denies ear pain, rhinorrhea or sore throat Cardiovascular Cardiovascular: Denies chest pain, orthopnea, palpitations, paroxysmal nocturnal dyspnea or racing heartbeat Respiratory/Chest Respiratory/Chest: Reports cough and other Details: Patient is 1/4 pack/day smoker. She does and [place] nonproductive cough. ; Denies dyspnea, dyspnea on exertion, orthopnea, paroxysmal nocturnal dyspnea or sputum Gastrointestinal Gastrointestinal: Reports abdominal pain; Denies constipation, diarrhea, melena, nausea or vomiting Genitourinary Genitourinary ED: Denies dysuria, hematuria or urinary frequency Musculoskeletal Musculoskeletal: Denies arthralgias, back pain, myalgias or neck pain Integumentary Denies rash Neurologic Neurologic: Reports weakness; Denies headache(s) or paresthesias Endocrine Endocrinology: Denies cold intolerance or heat intolerance Hematologic/Lymphatic Hematologic/Lymphatic : Reports systems reviewed and no addt'l complaints, except as documented EXAM (more content not included)... Normal [facility] Eosinophil percentageOrdered By: Crispin Subramanian on 12-07-2024 Eosinophils/100 WBC (Bld) 1.1 % 0-5 [facility] Erythrocyte Sed Rateon 12-07 SED RATE 8 mm/hr Normal 0-30 [facility] Comment on above: Performed By: #### L 300.3900, L501.6710, L101.9900, L500.4050, L100.0100 #### [facility] [address] [place], [place], [id number] Erythrocyte distribution wid th ratioOrdered By: Crispin Subramanian on 12-07-2024 Erythrocyte distribution width (RBC) [Ratio] 17.1 % High 11.6-14.6 [facility] Erythrocyte distribution wid th standard deviationOrdered By: Crispin Subramanian on 12-07-2024 Erythrocyte distribution width (RBC) [Ratio] 59.6 fl High 35.1-43.9 [facility] Erythrocyte sedimentation ra teOrdered By: Crispin Subramanian on 12-07-2024 ESR (Bld) [Velocity] 8 mm/h 0-30 [facility] Glomerular filtration rate ( GFR) estimation/1.73 sq m using serum, plasma, or whole bOrdered By: Crispin Subramanian on 12-07-2024 GFR/1.73 sq M.predicted among non-blacks MDRD (S/P/Bld) [Vol rate/Area] 47 mL/min/{1.73_m2} Low >60 [facility] Comment on above: mL/min/1.73m2 CKD-EP I Creatinine Equation (2020) Hematocrit Auto (Bld) [Volum e fraction]Ordered By: Crispin Subramanian on 12-07-2024 Hematocrit (Bld) [Volume fraction] 30.5 % Low 37-47 [facility] Hemoglobin measurementOrdere d By: Crispin Subramanian on 12-07-2024 Hemoglobin (Bld) [Mass/Vol] 9.4 g/dL Low 12.0-15.0 [facility] Immature granulocytes/100 WB C Auto (Bld)Ordered By: Crispin Subramanian on 12-07-2024 Immature granulocytes/100 WBC (Bld) 0.700 % 0.0-0.9 [facility] Comment on above: IG% - Immature Granu locytes (promyelocytes, myelocytes and metamyelocytes) > 1% indicates that a LEFT SHIFT is Present. International normalized rat io (INR) calculationOrdered By: Crispin Subramanian on 12-07-2024 INR Coag (Bld) [Relative time] 1.0 {INR} [facility] - Chemistry and C hemistry - challengeOrdered By: Crispin Subramanian on 12-07-2024 AST [Catalytic activity/Vol] 121 U/L High <32 [facility] MCV (mean corpuscular volume ) determinationOrdered By: Crispin Subramanian on 12-07-2024 MCV (RBC) [Entitic vol] 97.1 fL 81-99 [facility] Mean corpuscular hemoglobin (MCH) determinationOrdered By: Crispin Subramanian on 12-07-2024 MCH (RBC) [Entitic mass] 29.9 pg 27.0-32.0 [facility] Mean corpuscular hemoglobin concentration (MCHC) determinationOrdered By: Crispin Subramanian on 12-07-2024 MCHC (RBC) [Mass/Vol] 30.8 g/dL Low 32-36 [facility] Mean platelet volume determi nationOrdered By: Crispin Subramanian on 12-07-2024 Platelet mean volume (Bld) [Entitic vol] 10.7 fL 6.2-12.0 [facility] Monocyte percentageOrdered B y: Crispin Subramanian on 12-07-2024 Monocytes/100 WBC (Bld) 15.3 % High 0-10 [facility] Neutrophil percentageOrdered By: Crispin Subramanian on 12-07-2024 Neutrophils/100 WBC (Bld) 63.7 % 47-70 [facility] Nucleated red blood cell per centageOrdered By: Crispin Subramanian on 12-07-2024 Nucleated RBC/100 WBC (Bld) [Ratio] 0 % 0-5 [facility] Platelet countOrdered By: Rex Subramanian on 12-07-2024 Platelets (Bld) [#/Vol] 88 10*3/uL Low 150-450 [facility] Platelet estimateOrdered By: Crispin Subramanian on 12-07-2024 Platelets LM Ql (Bld) MOD DEC ADEQ [facility] Potassium measurement (mass/ volume)Ordered By: Crispin Subramanian on 12-07-2024 Potassium (Unsp spec) [Mass/Vol] 3.9 mmol/L 3.3-5.1 [facility] Prothrombin Time w/INRon INR Coag (PPP) [Relative time] 1.0 {INR} Normal [facility] Comment on above: Performed By: #### L 300.3900, L501.6710, L101.9900, L500.4050, L100.0100 #### [facility] [address] [place], [address] PT Coag (PPP) [Time] 13.5 s Normal 11.7-14.9 [facility] Comment on above: Performed By: #### L 300.3900, L501.6710, L101.9900, L500.4050, L100.0100 #### [facility] [address] [place], [address] Prothrombin timeOrdered By: Crispin Subramanian on 12-07-2024 PT Coag (PPP) [Time] 13.5 s 11.7-14.9 [facility] RBC Auto (Bld) [#/Vol]Ordere d By: Crispin Subramanian on 12-07-2024 RBC (Bld) [#/Vol] 3.14 10*6/uL Low 4.2-5.4 [facility] Serum creatinine measurement (mass/volume)Ordered By: Crispin Subramanian on 12-07-2024 Creatinine [Mass/Vol] 1.25 mg/dL High 0.70-1.20 [facility] Serum globulin measurementOr dered By: Crispin Subramanian on 12-07-2024 Globulin (S) [Mass/Vol] 2.9 g/dL 2.2-4.2 [facility] Serum glucose measurement (m ass/volume)Ordered By: Crispin Subramanian on 12-07-2024 Glucose [Mass/Vol] 90 mg/dL 70-99 [facility] Serum or plasma C reactive p rotein measurement (mass/volume)Ordered By: Crispin Subramanian on 12-07-2024 CRP [Mass/Vol] 56.00 mg/L High 0.0-3.0 [facility] Serum or plasma alanine baker otransferase (ALT) measurementOrdered By: Crispin Subramanian on 12-07-2024 ALT [Catalytic activity/Vol] 99 U/L High <35 [facility] Serum or plasma albumin matt urement (mass/volume)Ordered By: Crispin Subramanian on 12-07-2024 Albumin [Mass/Vol] 3.4 g/dL 3.4-4.8 [facility] Serum or plasma albumin/glob ulin mass ratioOrdered By: Crispin Subramanian on 12-07-2024 Albumin/Globulin [Mass ratio] 1.2 {ratio} 0.9-2.4 [facility] Serum or plasma alkaline adama sphatase measurementOrdered By: Crispin Subramanian on 12-07-2024 ALP [Catalytic activity/Vol] 189 U/L High 35-104 [facility] Serum or plasma calcium matt urement (mass/volume)Ordered By: Crispin Subramanian on 12-07-2024 Calcium [Mass/Vol] 10.6 mg/dL 7.6-11.0 [facility] Serum or plasma urea nitroge n measurement (mass/volume)Ordered By: Crispin Subramanian on 12-07-2024 Urea nitrogen [Mass/Vol] 28 mg/dL High 4-19 [facility] Sodium levelOrdered By: Crispin Subramanian on 12-07-2024 Sodium [Moles/Vol] 142 mmol/L 133-145 [facility] Total proteinOrdered By: Crispin Subramanian on 12-07-2024 Protein [Mass/Vol] 6.3 g/dL 5.9-8.4 [facility] White blood cell (WBC) count Ordered By: Crispin Subramanian on 12-07-2024 WBC (Bld) [#/Vol] 4.6 10*3/uL 4.4-11.0 [facility] AATon 11-26-2024 M-7-Uxiyygqtjni 259 mg/dL High 101-187 [facility] Comment on above: Result Comment: Perf ormed At: [id number] [place], [place] [id number] Miguelangel Decker PhD Ph:[phone] Performed By: #### G GT, HBSAG, HBCM, HCV1 #### [place] [address] #### CBC, ESR, LD, 128070, ANEU, CMP, GFR, URIC, ADIFF, ANAIFS #### [address] [address] ENDOon 11-26-2024 tTG IgA 3 units/ml Normal 0-3 [facility] Comment on above: Result Comment: Nega tive 0 - 3 Weak Positive 4 - 10 Positive >10 Tissue Transglutaminase (tTG) has been identified as the endomysial antigen. Studies have demonstr- ated that endomysial IgA antibodies have over 99% specificity for gluten sensitive enteropathy. Performed At: [facility] [address] [place], [place] [id number] Miguelangel Decker PhD Ph:[phone] Performed By: #### G GT, HBSAG, HBCM, HCV1 #### [place] [address] #### CBC, ESR, LD, 432274, ANEU, CMP, GFR, URIC, ADIFF, ANAIFS #### [address] [address] GLIADon 11-26-2024 Deam Gliad IgA Abs 5 units Normal 0-[address] [facility] Comment on above: Result Comment: Nega tive 0 - 19 Weak Positive 20 - 30 Moderate to Strong Positive >30 Performed By: #### G GT, HBSAG, HBCM, HCV1 #### [address] [address] #### CBC, ESR, LD, 879197, ANEU, CMP, GFR, URIC, ADIFF, ANAIFS #### [address] [address] Deam Gliad IgG Abs 12 units Normal 0-[address] [facility] Comment on above: Result Comment: Nega tive 0 - 19 Weak Positive 20 - 30 Moderate to Strong Positive >30 Performed At: [facility] [address] [place] [id number] Miguelangel Decker PhD Ph:[phone] Performed By: #### G GT, HBSAG, HBCM, HCV1 #### [place] [address] #### CBC, ESR, LD, 351369, ANEU, CMP, GFR, URIC, ADIFF, ANAIFS #### [place] [address] ANAIFSon 11-25-2024 Antinuclear Ab Screen Negative Normal Negative [facility] Comment on above: Result Comment: Anti -nuclear antibody test is used as an aid in diagnosis of systemic autoimmune diseases. Where positive and clinically warranted, follow-up using disease-specific testing is recommended. Low positive titers are not uncommon with advanced age, certain chronic infections, and malignancies among others. Test methodology: Indirect fluorescence immunoassay (IFA) using HEp-2 cells. Performed By: [facility] [employer] [place] [address] Calender Machine Operator Helper: Sukhdev Velazquez III, M.D. CLIA#: [id number] Performed By: #### G GT, HBSAG, HBCM, HCV1 #### [place] [address] #### CBC, ESR, LD, 694901, ANEU, CMP, GFR, URIC, ADIFF, ANAIFS #### [address] [address] ENA1on 11-25-2024 Centromere <0.2 Normal <1.0 [facility] Comment on above: Result Comment: Anti -centromere antibody is used as in aid in diagnosis of systemic sclerosis. Clinical correlation is required. Test Methodology: Multiplex flow immunoassay. Performed By: [facility] [employer] [facility] [place] [address] Calender Machine Operator Helper: Sukhdev Velazquez III, M.D. CLIA#: [id number] Performed By: #### G GT, HBSAG, HBCM, HCV1 #### [place] [address] #### CBC, ESR, LD, 941101, ANEU, CMP, GFR, URIC, ADIFF, ANAIFS #### [address] [address] Centromere Ab Qualitative Negative Normal Negative [facility] Comment on above: Result Comment: Perf ormed By: [place] [address] [employer] Machine Operator Helper: Sukhdev Velazquez III, M.D. CLIA#: [id number] Performed By: #### G GT, HBSAG, HBCM, HCV1 #### [place] [address] #### CBC, ESR, LD, 465204, ANEU, CMP, GFR, URIC, ADIFF, ANAIFS #### [address] [address] Chromatin Ab Qualitative Negative Normal Negative [facility] Comment on above: Result Comment: Perf ormed By: [place] [address] Cal[employer] Machine Operator Helper: Sukhdev Velazquez III, M.D. CLIA#: [id number] Performed By: #### G GT, HBSAG, HBCM, HCV1 #### [place] [address] #### CBC, ESR, LD, 632260, ANEU, CMP, GFR, URIC, ADIFF, ANAIFS #### [address] [address] Chromatin Antibody <0.2 Normal <1.[address] [facility] Comment on above: Result Comment: Test Methodology: Multiplex flow immunoassay. Anti-chromatin antibody is used as an aid in diagnosis of systemic lupus erythematosus. Clinical correlation is required. Test Methodology: Multiplex flow immunoassay. Performed By: [facility] [employer] [address] [place] [address] Calender Machine Operator Helper: Sukhdev Velazquez III, M.D. CLIA#: [id number] Performed By: #### G GT, HBSAG, HBCM, HCV1 #### [address] [address] #### CBC, ESR, LD, 094274, ANEU, CMP, GFR, URIC, ADIFF, ANAIFS #### [address] [address] ABI 1 Antibody <0.2 Normal <1.0 [facility] Comment on above: Result Comment: Perf ormed By: [place] [address] Calender Machine Operator Helper: Sukhdev Velazquez III, M.D. CLIA#: [id number] Performed By: #### G GT, HBSAG, HBCM, HCV1 #### [place] [address] #### CBC, ESR, LD, 814167, ANEU, CMP, GFR, URIC, ADIFF, ANAIFS #### [address] [address] ABI 1 Antibody Qual Negative Normal Negative [facility] Comment on above: Result Comment: Anti -ABI-1 antibody is used as an aid in diagnosis of polymyositis and dermatomyositis especially with pulmonary involvement. A negative result cannot rule out polymyositis or dermatomyositis. Clinical correlation is required. Test Methodology: Multiplex flow immunoassay. Performed By: [place] [address] [employer] Machine Operator Helper: Sukhdev Velazquez III, M.D. CLIA#: [id number] Performed By: #### G GT, HBSAG, HBCM, HCV1 #### [place] [address] #### CBC, ESR, LD, 695711, ANEU, CMP, GFR, URIC, ADIFF, ANAIFS #### [address] [address] Ribosomal UNDERWATER HUNTER <0.2 Normal <1.0 [facility] Comment on above: Result Comment: Perf ormed By: [place] [address] [employer] Machine Operator Helper: Sukhdev Velazquez III, M.D. CLIA#: [id number] Performed By: #### G GT, HBSAG, HBCM, HCV1 #### [place] [address] #### CBC, ESR, LD, 599938, ANEU, CMP, GFR, URIC, ADIFF, ANAIFS #### [address] [address] Ribosomal UNDERWATER HUNTER Qualitative Negative Normal Negative [facility] Comment on above: Result Comment: Anti -Ribosomal RNA (Ribosomal P) antibody is used as an aid in diagnosis of systemic autoimmune diseases especially systemic lupus erythematosus and mixed connective tissue disease. Cross-reactivity with Anti-moulton antibody is not uncommon. Clinical correlation is required. Test Methodology: Multiplex flow immunoassay. Performed By: [facility] [employer] [address] [place] [address] Calender Machine Operator Helper: Sukhdev Velazquez III, M.D. CLIA#: [id number] Performed By: #### G GT, HBSAG, HBCM, HCV1 #### [place] [address] #### CBC, ESR, LD, 948361, ANEU, CMP, GFR, URIC, ADIFF, ANAIFS #### [address] [address] UNDERWATER HUNTER Antibody <0.2 Normal <1.0 [facility] Comment on above: Result Comment: Anti -UNDERWATER HUNTER antibody is used as an aid in diagnosis of systemic autoimmune diseases especially systemic lupus erythematosus and mixed connective tissue disease. Cross-reactivity with Anti-moulton antibody is not uncommon. Clinical correlation is required. Test Methodology: Multiplex flow immunoassay. Performed By: [facility] [employer] [address] [place] [address] Calender Machine Operator Helper: Sukhdev Velazquez III, M.D. CLIA#: [id number] Performed By: #### G GT, HBSAG, HBCM, HCV1 #### [place] [address] #### CBC, ESR, LD, 482526, ANEU, CMP, GFR, URIC, ADIFF, ANAIFS #### [address] [address] UNDERWATER HUNTER Antibody Qualitative Negative Normal Negative [facility] Comment on above: Result Comment: Perf ormed By: [place] [address] Calender Machine Operator Helper: Sukhdev Velazquez III, M.D. CLIA#: [id number] Performed By: #### G GT, HBSAG, HBCM, HCV1 #### [place] [address] #### CBC, ESR, LD, 546923, ANEU, CMP, GFR, URIC, ADIFF, ANAIFS #### [place] [address] Scleroderma Ab, IgG Qualitative Negative Normal Negative [facility] Comment on above: Result Comment: Perf ormed By: [place] [address] Calender Machine Operator Helper: uSkhdev Velazquez III, M.D. CLIA#: [id number] Performed By: #### G GT, HBSAG, HBCM, HCV1 #### [place] [address] #### CBC, ESR, LD, 871056, ANEU, CMP, GFR, URIC, ADIFF, ANAIFS #### [place] [address] Scleroderma IgG Ab <0.2 Normal <1.[address] [facility] Comment on above: Result Comment: Scl- 70/Scleroderma antibody test is used as an aid in diagnosis of systemic sclerosis especially the diffuse cutaneous form. A negative result cannot rule out systemic sclerosis. The final interpretation should consider clinical picture and other test results such as anti-centromere antibody. Test Methodology: Multiplex flow immunoassay. Performed By: [place] [address] Calender Machine Operator Helper: Sukhdev Velazquez III, M.D. CLIA#: [id number] Performed By: #### G GT, HBSAG, HBCM, HCV1 #### [place] [address] #### CBC, ESR, LD, 085397, ANEU, CMP, GFR, URIC, ADIFF, ANAIFS #### [place] [address] Sm Antibody <0.2 Normal <1.0 [facility] Comment on above: Result Comment: Perf ormed By: [place] [address] Calender Machine Operator Helper: Sukhdev Velazquez III, M.D. CLIA#: [id number] Performed By: #### G GT, HBSAG, HBCM, HCV1 #### [place] [address] #### CBC, ESR, LD, 470638, ANEU, CMP, GFR, URIC, ADIFF, ANAIFS #### [place] [address] Sm Antibody Qual Negative Normal Negative [facility] Comment on above: Result Comment: Anti -Sm (Moulton) antibody is used as an aid in diagnosis of systemic lupus erythematosus and its presence is associated with renal disease. A negative result cannot rule out systemic lupus erythematosus. Clinical correlation is required. Test Methodology: Multiplex flow immunoassay. Performed By: [place] [address] Cal[employer] Machine Operator Helper: Sukhdev Velazquez III, M.D. CLIA#: [id number] Performed By: #### G GT, HBSAG, HBCM, HCV1 #### [place] [address] #### CBC, ESR, LD, 384685, ANEU, CMP, GFR, URIC, ADIFF, ANAIFS #### [place] [address] SS-A Antibody <0.2 Normal <1.0 [facility] Comment on above: Result Comment: Test Methodology: Multiplex flow immunoassay. Anti-SSA (anti-Ro) antibody is used as an aid in diagnosis of a variety of systemic autoimmune diseases, Sjogren's syndrome among others. Clinical correlation is required. Test Methodology: Multiplex flow immunoassay. Performed By: [place] [address] Calender Machine Operator Helper: Sukhdev Velazquez III, M.D. CLIA#: [id number] Performed By: #### G GT, HBSAG, HBCM, HCV1 #### [place] [address] #### CBC, ESR, LD, 593439, ANEU, CMP, GFR, URIC, ADIFF, ANAIFS #### [address] [address] SS-B Antibody <0.2 Normal <1.0 [facility] Comment on above: Result Comment: Anti -SSB (anti-La) antibody is used as an aid in diagnosis of a variety of systemic autoimmune diseases, especially for Sjogren's syndrome and systemic lupus erythematosus. Clinical correlation is required. Test Methodology: Multiplex flow immunoassay. Performed By: [place] [address] Calender Machine Operator Helper: Sukhdev Velazquez III, M.D. CLIA#: [id number] Performed By: #### G GT, HBSAG, HBCM, HCV1 #### [place] [address] #### CBC, ESR, LD, 433182, ANEU, CMP, GFR, URIC, ADIFF, ANAIFS #### [address] [address] SSA Antibody Qualitative Negative Normal Negative [facility] Comment on above: Result Comment: Perf ormed By: [place] [address] Calender Machine Operator Helper: Sukhdev Velazquez III, M.D. CLIA#: [id number] Performed By: #### G GT, HBSAG, HBCM, HCV1 #### [place] [address] #### CBC, ESR, LD, 004669, ANEU, CMP, GFR, URIC, ADIFF, ANAIFS #### [address] [address] SSB Antibody Qualitative Negative Normal Negative [facility] Comment on above: Result Comment: Perf ormed By: [place] [address] Calender Machine Operator Helper: Sukhdev Velazquez III, M.D. CLIA#: [id number] Performed By: #### G GT, HBSAG, HBCM, HCV1 #### [place] [address] #### CBC, ESR, LD, 157789, ANEU, CMP, GFR, URIC, ADIFF, ANAIFS #### [address] [address] .Auto Diffon 11-24-2024 Basophil, Absolute 0.1 10 3/mcL Normal 0.0-0.3 [facility] Comment on above: Performed By: #### G GT, HBSAG, HBCM, HCV1 #### [place] [address] #### CBC, ESR, LD, 140695, ANEU, CMP, GFR, URIC, ADIFF, ANAIFS #### [address] [address] Basophils/100 WBC (Bld) 1.1 % Normal 0.0-2.5 [facility] Comment on above: Performed By: #### G GT, HBSAG, HBCM, HCV1 #### [place] [address] #### CBC, ESR, LD, 678607, ANEU, CMP, GFR, URIC, ADIFF, ANAIFS #### [address] [address] Eosinophil, Absolute 0.0 10 3/mcL Normal 0.0-0.7 [facility] Comment on above: Performed By: #### G GT, HBSAG, HBCM, HCV1 #### [place] [address] #### CBC, ESR, LD, 722720, ANEU, CMP, GFR, URIC, ADIFF, ANAIFS #### [address] [address] Eosinophils/100 WBC (Bld) 0.6 % Normal 0.0-6.0 [facility] Comment on above: Performed By: #### G GT, HBSAG, HBCM, HCV1 #### [place] [address] #### CBC, ESR, LD, 064723, ANEU, CMP, GFR, URIC, ADIFF, ANAIFS #### [address] [address] Lymphocyte, Absolute 0.9 10 3/mcL Normal 0.9-4.3 [facility] Comment on above: Performed By: #### G GT, HBSAG, HBCM, HCV1 #### [place] [address] #### CBC, ESR, LD, 501949, ANEU, CMP, GFR, URIC, ADIFF, ANAIFS #### [address] [address] Lymphocytes/100 WBC (Bld) 17.5 % Low 20.0-40.0 [facility] Comment on above: Performed By: #### G GT, HBSAG, HBCM, HCV1 #### [place] [address] #### CBC, ESR, LD, 043603, ANEU, CMP, GFR, URIC, ADIFF, ANAIFS #### [address] [address] Monocyte, Absolute 0.6 10 3/mcL Normal 0.1-1.4 [facility] Comment on above: Performed By: #### G GT, HBSAG, HBCM, HCV1 #### [place] [address] #### CBC, ESR, LD, 285552, ANEU, CMP, GFR, URIC, ADIFF, ANAIFS #### [address] [address] Monocytes/100 WBC (Bld) 11.9 % Normal 2.0-13.0 [facility] Comment on above: Performed By: #### G GT, HBSAG, HBCM, HCV1 #### [place] [address] #### CBC, ESR, LD, 961619, ANEU, CMP, GFR, URIC, ADIFF, ANAIFS #### [address] [address] Neutrophils/100 WBC (Bld) 68.9 % Normal 50.0-75.0 [facility] Comment on above: Performed By: #### G GT, HBSAG, HBCM, HCV1 #### [address] [address] #### CBC, ESR, LD, 661457, ANEU, CMP, GFR, URIC, ADIFF, ANAIFS #### [address] [address] .GFRon 11-24-2024 Estimated Glomerular Filtration Rate 36 ml/min/1.73sqm Normal [facility] Comment on above: Result Comment: Stages of Chronic Kidney Disease (CKD) Stage Description eGFR(ml/min/1.73 sq.m.) CKD 1 Normal kidney function or >=90 normal kindney function with possible kidney damage (ex. Proteinuria) CKD 2 Kidney damage with mild loss 60-89 of kidney function CKD 3a Mild to moderate loss of kidney 45-59 function CKD 3b Moderate to severe loss of 30-44 of kindey function CKD 4 Severe loss of kidney function 15-29 CKD 5 Kidney failure <15 Note: (go live 2024) the eGFR calculation was updated to the 2020 CKD-EPI creatinine equation without a race factor to calculate the eGFR results. Performed By: #### G GT, HBSAG, HBCM, HCV1 #### [address] [address] #### CBC, ESR, LD, 417896, ANEU, CMP, GFR, URIC, ADIFF, ANAIFS #### [address] [address] .NEUABSon 11-24-2024 Neutrophil, Absolute 3.5 10 3/mcL Normal 2.3-8.1 [facility] Comment on above: Performed By: #### G GT, HBSAG, HBCM, HCV1 #### [address] [address] #### CBC, ESR, LD, 931605, ANEU, CMP, GFR, URIC, ADIFF, ANAIFS #### [address] [address] AMYon 11-24-2024 Amylase [Catalytic activity/Vol] 57 U/L Normal 25-115 [facility] Comment on above: Performed By: #### G GT, HBSAG, HBCM, HCV1 #### [address] [address] #### CBC, ESR, LD, 917368, ANEU, CMP, GFR, URIC, ADIFF, ANAIFS #### [address] [address] [facility] 11-24-2024 Erythrocyte distribution width (RBC) [Ratio] 16.7 % High 11.5-15.5 [facility] Comment on above: Performed By: #### G GT, HBSAG, HBCM, HCV1 #### [address] [address] #### CBC, ESR, LD, 516602, ANEU, CMP, GFR, URIC, ADIFF, ANAIFS #### [address] [address] Hematocrit (Bld) [Volume fraction] 30.3 % Low 34.0-46.0 [facility] Comment on above: Performed By: #### G GT, HBSAG, HBCM, HCV1 #### [address] [address] #### CBC, ESR, LD, 129545, ANEU, CMP, GFR, URIC, ADIFF, ANAIFS #### [address] [address] Hgb 10.1 G/dL Low 12.0-16.0 [facility] Comment on above: Performed By: #### G GT, HBSAG, HBCM, HCV1 #### [address] [address] #### CBC, ESR, LD, 608978, ANEU, CMP, GFR, URIC, ADIFF, ANAIFS #### [address] [address] MCH (RBC) [Entitic mass] 30.4 pg Normal 27.0-33.0 [facility] Comment on above: Performed By: #### G GT, HBSAG, HBCM, HCV1 #### [address] [address] #### CBC, ESR, LD, 372247, ANEU, CMP, GFR, URIC, ADIFF, ANAIFS #### [address] [address] MCHC 33.5 G/dL Normal 32.0-36.0 [facility] Comment on above: Performed By: #### G GT, HBSAG, HBCM, HCV1 #### [place] [address] #### CBC, ESR, LD, 713309, ANEU, CMP, GFR, URIC, ADIFF, ANAIFS #### [address] [address] MCV (RBC) [Entitic vol] 90.7 fL Normal 80.0-99.0 [facility] Comment on above: Performed By: #### G GT, HBSAG, HBCM, HCV1 #### [place] [address] #### CBC, ESR, LD, 973911, ANEU, CMP, GFR, URIC, ADIFF, ANAIFS #### [address] [address] Platelet 112 10 3/mcL Low 150-450 [facility] Comment on above: Performed By: #### G GT, HBSAG, HBCM, HCV1 #### [place] [address] #### CBC, ESR, LD, 982710, ANEU, CMP, GFR, URIC, ADIFF, ANAIFS #### [address] [address] Platelet mean volume (Bld) [Entitic vol] 8.5 fL Normal 6.6-10.5 [facility] Comment on above: Performed By: #### G GT, HBSAG, HBCM, HCV1 #### [place] [address] #### CBC, ESR, LD, 252724, ANEU, CMP, GFR, URIC, ADIFF, ANAIFS #### [address] [address] RBC 3.34 10 6/mcL Low 4.10-5.30 [facility] Comment on above: Performed By: #### G GT, HBSAG, HBCM, HCV1 #### [place] [address] #### CBC, ESR, LD, 599325, ANEU, CMP, GFR, URIC, ADIFF, ANAIFS #### [address] [address] WBC 5.1 10 3/mcL Normal 4.5-10.8 [facility] Comment on above: Performed By: #### G GT, HBSAG, HBCM, HCV1 #### [place] [address] #### CBC, ESR, LD, 197594, ANEU, CMP, GFR, URIC, ADIFF, ANAIFS #### [address] [address] CMPon 11-24-2024 Albumin Level 3.1 G/dL Low 3.4-4.8 [facility] Comment on above: Performed By: #### G GT, HBSAG, HBCM, HCV1 #### [place] [address] #### CBC, ESR, LD, 390223, ANEU, CMP, GFR, URIC, ADIFF, ANAIFS #### [address] [address] Albumin/Globulin [Mass ratio] 0.8 {ratio} Low 1.1-2.5 [facility] Comment on above: Performed By: #### G GT, HBSAG, HBCM, HCV1 #### [place] [address] #### CBC, ESR, LD, 731740, ANEU, CMP, GFR, URIC, ADIFF, ANAIFS #### [address] [address] ALP [Catalytic activity/Vol] 165 U/L High 40-135 [facility] Comment on above: Performed By: #### G GT, HBSAG, HBCM, HCV1 #### [place] [address] #### CBC, ESR, LD, 070358, ANEU, CMP, GFR, URIC, ADIFF, ANAIFS #### [address] [address] ALT [Catalytic activity/Vol] 127 U/L High 14-59 [facility] Comment on above: Performed By: #### G GT, HBSAG, HBCM, HCV1 #### [place] [address] #### CBC, ESR, LD, 010383, ANEU, CMP, GFR, URIC, ADIFF, ANAIFS #### [address] [address] AST [Catalytic activity/Vol] 145 U/L High 10-40 [facility] Comment on above: Performed By: #### G GT, HBSAG, HBCM, HCV1 #### [place] [address] #### CBC, ESR, LD, 179413, ANEU, CMP, GFR, URIC, ADIFF, ANAIFS #### [address] [address] Bili Total 0.7 mg/dL Normal 0.2-1.0 [facility] Comment on above: Result Comment: Use of this assay is not recommended for patients undergoing treatment with eltrombopag due to the potential for falsely elevated results. Performed By: #### G GT, HBSAG, HBCM, HCV1 #### [place] [address] #### CBC, ESR, LD, 694410, ANEU, CMP, GFR, URIC, ADIFF, ANAIFS #### [address] [address] BUN/Creatinine Ratio 27 ratio Normal 7-27 [facility] Comment on above: Performed By: #### G GT, HBSAG, HBCM, HCV1 #### [address] [address] #### CBC, ESR, LD, 794065, ANEU, CMP, GFR, URIC, ADIFF, ANAIFS #### [address] [address] Calcium [Mass/Vol] 10.8 mg/dL High 8.4-10.[address] [facility] Comment on above: Performed By: #### G GT, HBSAG, HBCM, HCV1 #### [place] [address] #### CBC, ESR, LD, 025749, ANEU, CMP, GFR, URIC, ADIFF, ANAIFS #### [address] [address] Chloride [Moles/Vol] 104 mmol/L Normal 98-107 [facility] Comment on above: Performed By: #### G GT, HBSAG, HBCM, HCV1 #### [place] [address] #### CBC, ESR, LD, 792421, ANEU, CMP, GFR, URIC, ADIFF, ANAIFS #### [address] [address] CO2 [Moles/Vol] 32 mmol/L High 23-31 [facility] Comment on above: Performed By: #### G GT, HBSAG, HBCM, HCV1 #### [place] [address] #### CBC, ESR, LD, 604343, ANEU, CMP, GFR, URIC, ADIFF, ANAIFS #### [address] [address] Creatinine [Mass/Vol] 1.58 mg/dL High 0.51-0.95 [facility] Comment on above: Performed By: #### G GT, HBSAG, HBCM, HCV1 #### [place] [address] #### CBC, ESR, LD, 676284, ANEU, CMP, GFR, URIC, ADIFF, ANAIFS #### [address] [address] Electrolyte Balance 8.0 mEq/L Normal 4.0-15.0 [facility] Comment on above: Performed By: #### G GT, HBSAG, HBCM, HCV1 #### [address] [address] #### CBC, ESR, LD, 330978, ANEU, CMP, GFR, URIC, ADIFF, ANAIFS #### [address] [address] Globulin 3.9 G/dL Normal 2.7-4.4 [facility] Comment on above: Performed By: #### G GT, HBSAG, HBCM, HCV1 #### [place] [address] #### CBC, ESR, LD, 323167, ANEU, CMP, GFR, URIC, ADIFF, ANAIFS #### [address] [address] Glucose [Mass/Vol] 98 mg/dL Normal 80-[address] [facility] Comment on above: Performed By: #### G GT, HBSAG, HBCM, HCV1 #### [place] [address] #### CBC, ESR, LD, 818066, ANEU, CMP, GFR, URIC, ADIFF, ANAIFS #### [address] [address] Potassium [Moles/Vol] 3.9 mmol/L Normal 3.5-5.1 [facility] Comment on above: Performed By: #### G GT, HBSAG, HBCM, HCV1 #### [place] [address] #### CBC, ESR, LD, 960678, ANEU, CMP, GFR, URIC, ADIFF, ANAIFS #### [address] [address] Sodium [Moles/Vol] 144 mmol/L Normal 136-[address] [facility] Comment on above: Performed By: #### G GT, HBSAG, HBCM, HCV1 #### [address] [address] #### CBC, ESR, LD, 886278, ANEU, CMP, GFR, URIC, ADIFF, ANAIFS #### [address] [address] Total Protein 7.0 G/dL Normal 6.4-8.2 [facility] Comment on above: Performed By: #### G GT, HBSAG, HBCM, HCV1 #### [place] [address] #### CBC, ESR, LD, 322742, ANEU, CMP, GFR, URIC, ADIFF, ANAIFS #### [address] [address] Urea nitrogen [Mass/Vol] 43 mg/dL High 7-18 [facility] Comment on above: Performed By: #### G GT, HBSAG, HBCM, HCV1 #### [place] [address] #### CBC, ESR, LD, 391452, ANEU, CMP, GFR, URIC, ADIFF, ANAIFS #### [address] [address] ESRon 11-24-2024 Erythrocyte Sed Rate 20 mm/hr Normal 0-30 [facility] Comment on above: Performed By: #### G GT, HBSAG, HBCM, HCV1 #### [place] [address] #### CBC, ESR, LD, 115009, ANEU, CMP, GFR, URIC, ADIFF, ANAIFS #### [address] [address] GGTon 11-24-2024 Gamma GT 66 U/L High 5-55 [facility] Comment on above: Performed By: #### G GT, HBSAG, HBCM, HCV1 #### [place] [address] #### CBC, ESR, LD, 950347, ANEU, CMP, GFR, URIC, ADIFF, ANAIFS #### [address] [address] HBCMon 11-24-2024 Hep B Core IgM Ab Non-Reactive Normal Non-Reactive [facility] Comment on above: Performed By: #### G GT, HBSAG, HBCM, HCV1 #### [place] [address] #### CBC, ESR, LD, 312447, ANEU, CMP, GFR, URIC, ADIFF, ANAIFS #### [address] [address] Hep B Core IgM Ab Int See Interp Normal [facility] Comment on above: Result Comment: Clinical Interpretation: Samples with a value < 0.80 Index are considered nonreactive (negative) for IgM antibodies to hepatitis B core antigen. Performed By: #### G GT, HBSAG, HBCM, HCV1 #### [place] [address] #### CBC, ESR, LD, 617061, ANEU, CMP, GFR, URIC, ADIFF, ANAIFS #### [address] [address] HBSAGon 11-24-2024 Hep B Surf Ag Non-Reactive Normal Non-Reactive [facility] Comment on above: Performed By: #### G GT, HBSAG, HBCM, HCV1 #### [place] [address] #### CBC, ESR, LD, 526386, ANEU, CMP, GFR, URIC, ADIFF, ANAIFS #### [address] [address] HCVon 11-24-2024 Hep C Ab Non-Reactive Normal Non-Reactive [facility] Comment on above: Performed By: #### G GT, HBSAG, HBCM, HCV1 #### [place] [address] #### CBC, ESR, LD, 604714, ANEU, CMP, GFR, URIC, ADIFF, ANAIFS #### [address] [address] Hep C Ab Int See Interp Normal [facility] Comment on above: Result Comment: Clinical Interpretation: Nonreactive: Samples with a value < 0.80 are considered nonreactive (negative) for antibodies to HCV. A negative test result does not exclude the possibility of exposure to or infection with HCV. HCV antibodies may be undetectable in some stages of the infection and in some clinical conditions. Performed By: #### G GT, HBSAG, HBCM, HCV1 #### [facility] [address] [place] [address] #### CBC, ESR, LD, 897228, ANEU, CMP, GFR, URIC, ADIFF, ANAIFS #### [place] [address] [place], [place] [address] LABORATORYOrdered By: Kellie Alejandra on 11-24-2024 Albumin DL <= 20 mg/L (U) [Mass/Vol] 119.7 mg/L Invalid Interpretation Code AO ADM SS Albumin/Creatinine DL <= 20 mg/L (U) [Mass ratio] 169 mg/G High 0 - 30 mg/G AO Chemistry S Creatinine (U) [Mass/Vol] 71.0 mg/dL Invalid Interpretation Code AO ADM SS LABORATORYOrdered By: [employer] on 11-24-2024 25-hydroxyvitamin D3 [Mass/Vol] 86.5 ng/mL Invalid Interpretation Code AO ADM SS Comment on above: Interpretive Data: I nterpretive Values Based on Total 25(OH) Vitamin D: Deficient <20 ng/mL Insufficient 20 - <30 ng/mL Sufficient 30-100 ng/mL Amylase [Catalytic activity/Vol] 57 U/L Normal 25 - 115 U/L AO ADM SS Lipase [Catalytic activity/Vol] 40 U/L Normal 16 - 77 U/L AO ADM SS TSH Qn 1.71 m[IU]/L Normal 0.36 - 3.74 mcIU/mL AO ADM SS Albumin BCP dye [Mass/Vol] 3.1 G/dL Low 3.4 - 4.8 G/dL AO ADM SS Albumin/Globulin [Mass ratio] 0.8 {ratio} Low 1.1 - 2.5 ratio AO ADM SS ALP [Catalytic activity/Vol] 165 U/L High 40 - 135 U/L AO ADM SS ALT With P-5'-P [Catalytic activity/Vol] 127 U/L High 14 - 59 U/L AO ADM SS AST With P-5'-P [Catalytic activity/Vol] 145 U/L High 10 - 40 U/L AO ADM SS Basophils (Bld) [#/Vol] 0.1 103/mcL Normal 0.0 - 0.3 10^3/mcL AO Workflow SS Basophils/100 WBC (Bld) 1.1 % Normal 0.0 - 2.5 % AO Workflow SS Bilirubin [Mass/Vol] 0.7 mg/dL Normal 0.2 - 1 .0 mg/dL AO ADM SS Comment on above: Interpretive Data: U se of this assay is not recommended for patients undergoing treatment with eltrombopag due to the potential for falsely elevated results. Calcium [Mass/Vol] 10.8 mg/dL High 8.4 - 10. 2 mg/dL AO ADM SS Chloride [Moles/Vol] 104 mmol/L Normal 98 - 10 7 mmol/L AO ADM SS CO2 [Moles/Vol] 32 mmol/L High 23 - 31 mmol/L AO ADM SS Creatinine [Mass/Vol] 1.58 mg/dL High 0.51 - 0.95 mg/dL AO ADM SS Electrolyte Balance 8.0 mEq/L Normal 4.0 - 15 .0 mEq/L AO ADM SS Eosinophil, Absolute 0.0 103/mcL Normal 0.0 - 0 .7 10^3/mcL AO Workflow SS Eosinophils/100 WBC (Bld) 0.6 % Normal 0.0 - 6.0 % AO Workflow SS Erythrocyte distribution width (RBC) [Ratio] 16.7 % High 11.5 - 15.5 % AO Workflow SS Estimated Glomerular Filtration Rate 36 ml/min/1.73sqm Invalid Interpretation Code AO Chemistry S Comment on above: Interpretive Data: Stages of Chronic Kidney Disease (CKD) Stage Description eGFR(ml/min/1.73 sq.m.) CKD 1 Normal kidney function or >=90 normal kindney function with possible kidney damage (ex. Proteinuria) CKD 2 Kidney damage with mild loss 60-89 of kidney function CKD 3a Mild to moderate loss of kidney 45-59 function CKD 3b Moderate to severe loss of 30-44 of kindey function CKD 4 Severe loss of kidney function 15-29 CKD 5 Kidney failure <15 Note: (go live 2024) the eGFR calculation was updated to the 2020 CKD-EPI creatinine equation without a race factor to calculate the eGFR results. Gamma glutamyl transferase [Catalytic activity/Vol] 66 U/L High 5 - 55 U/L AH ADM SS Globulin 3.9 G/dL Normal 2.7 - 4.4 G/dL AO ADM SS Glucose [Mass/Vol] 98 mg/dL Normal 80 - 115 mg/dL AO ADM SS Hematocrit (Bld) [Volume fraction] 30.3 % Low 34.0 - 46.0 % AO Workflow SS Hemoglobin (Bld) [Mass/Vol] 10.1 G/dL Low 12.0 - 16.0 G/dL AO Workflow SS LDH [Catalytic activity/Vol] 362 U/L High 81 - 234 U/L AO ADM SS Lymphocytes (Bld) [#/Vol] 0.9 103/mcL Normal 0.9 - 4.3 10^3/mcL AO Workflow SS Lymphocytes/100 WBC (Bld) 17.5 % Low 20.0 - 40.0 % AO Workflow SS MCH (RBC) [Entitic mass] 30.4 pg Normal 27.0 - 33.0 pg AO Workflow SS MCHC 33.5 G/dL Normal 32.0 - 36.0 G/dL AO Workflow SS MCV (RBC) [Entitic vol] 90.7 fL Normal 80.0 - 99.0 fL AO Workflow SS Monocytes (Bld) [#/Vol] 0.6 103/mcL Normal 0.1 - 1.4 10^3/mcL AO Workflow SS Monocytes/100 WBC (Bld) 11.9 % Normal 2.0 - 13.0 % AO Workflow SS Neutrophils (Bld) [#/Vol] 3.5 103/mcL Normal 2.3 - 8.1 10^3/mcL AO Workflow SS Neutrophils/100 WBC (Bld) 68.9 % Normal 50.0 - 75.0 % AO Workflow SS Platelet mean volume (Bld) [Entitic vol] 8.5 fL Normal 6.6 - 10.5 fL AO Workflow SS Platelets (Bld) [#/Vol] 112 103/mcL Low 150 - 450 10^3/mcL AO Workflow SS Potassium [Moles/Vol] 3.9 mmol/L Normal 3.5 - 5.1 mmol/L AO ADM SS Protein [Mass/Vol] 7.0 G/dL Normal 6.4 - 8.2 G/dL AO ADM SS RBC (Bld) [#/Vol] 3.34 106/mcL Low 4.10 - 5.3 0 10^6/mcL AO Workflow SS Sodium [Moles/Vol] 144 mmol/L Normal 136 - 145 mmol/L AO ADM SS Urea nitrogen [Mass/Vol] 43 mg/dL High 7 - 18 mg/dL AO ADM SS Urea nitrogen/Creatinine [Mass ratio] 27 ratio Normal 7 - 27 ratio AO ADM SS Uric Acid Lvl 10.8 mg/dL High 2.6 - 6.2 mg/dL AO ADM SS WBC (Bld) [#/Vol] 5.1 103/mcL Normal 4.5 - 10.8 10^3/mcL AO Workflow SS LABORATORYOrdered By: Vernell Best on 11-24-2024 ESR Photometric method (Bld) [Velocity] 20 mm/hr Normal 0 - 30 mm/hr AO Man Heme SS LABORATORYOrdered By: Marianna Pinto on 11-24-2024 HBV core IgM IA Ql See Interp 4 *NA* (11/24/24 3:50 PM) Invalid Interpretation Code Chemistry S Comment on above: Result Comment: Clinical Interpretation: Samples with a value < 0.80 Index are considered nonreactive (negative) for IgM antibodies to hepatitis B core antigen. HBV core IgM IA Ql Non-Reactive (11/24/24 3:50 PM) Normal Non-Reactive AH ADM SS HBV surface Ag IA Ql Non-Reactive (11/24/24 3:50 PM) Normal Non-Reactive AH ADM SS HCV Ab IA Ql See Interp 5 *NA* (11/24/24 3:50 PM) Invalid Interpretation Code Chemistry S Comment on above: Result Comment: Clinical Interpretation: Nonreactive: Samples with a value < 0.80 are considered nonreactive (negative) for antibodies to HCV. A negative test result does not exclude the possibility of exposure to or infection with HCV. HCV antibodies may be undetectable in some stages of the infection and in some clinical conditions. HCV Ab IA Ql Non-Reactive (11/24/24 3:50 PM) Normal Non-Reactive AH ADM SS LDHon 11-24-2024 LDH 362 U/L High 81-234 [facility] Comment on above: Performed By: #### G GT, HBSAG, HBCM, HCV1 #### [address] [address] #### CBC, ESR, LD, 076793, ANEU, CMP, GFR, URIC, ADIFF, ANAIFS #### [address] [address] LIPon 11-24-2024 Lipase Level 40 U/L Normal 16-77 [facility] Comment on above: Performed By: #### G GT, HBSAG, HBCM, HCV1 #### [place] [address] #### CBC, ESR, LD, 225645, ANEU, CMP, GFR, URIC, ADIFF, ANAIFS #### [address] [address] MALBRon 11-24-2024 U Creatinine 71.0 mg/dL Normal [facility] Comment on above: Performed By: #### G GT, HBSAG, HBCM, HCV1 #### [place] [address] #### CBC, ESR, LD, 824117, ANEU, CMP, GFR, URIC, ADIFF, ANAIFS #### [address] [address] U Microalb 119.7 mg/L Normal [facility] Comment on above: Performed By: #### G GT, HBSAG, HBCM, HCV1 #### [place] [address] #### CBC, ESR, LD, 912928, ANEU, CMP, GFR, URIC, ADIFF, ANAIFS #### [address] [address] U Ratio Alb/Cre 169 mg/G High 0-30 [facility] Comment on above: Performed By: #### G GT, HBSAG, HBCM, HCV1 #### [place] [address] #### CBC, ESR, LD, 789251, ANEU, CMP, GFR, URIC, ADIFF, ANAIFS #### [address] [address] TSHon 11-24-2024 TSH Qn 1.71 m[IU]/L Normal 0.36-3.74 [facility] Comment on above: Performed By: #### G GT, HBSAG, HBCM, HCV1 #### [address] [address] #### CBC, ESR, LD, 197073, ANEU, CMP, GFR, URIC, ADIFF, ANAIFS #### [address] [address] URICon 11-24-2024 Uric Acid Lvl 10.8 mg/dL High 2.6-6.2 [facility] Comment on above: Performed By: #### G GT, HBSAG, HBCM, HCV1 #### [address] [address] #### CBC, ESR, LD, 070874, ANEU, CMP, GFR, URIC, ADIFF, ANAIFS #### [address] [address] VIDHon 11-24-2024 Vit. D 25-Hydroxy 86.5 ng/mL Normal [facility] Comment on above: Result Comment: Inte rpretive Values Based on Total 25(OH) Vitamin D: Deficient <20 ng/mL Insufficient 20 - <30 ng/mL Sufficient 30-100 ng/mL Performed By: #### G GT, HBSAG, HBCM, HCV1 #### [place] [id number] #### CBC, ESR, LD, 256269, ANEU, CMP, GFR, URIC, ADIFF, ANAIFS #### [address] [address] Celiac Disease Profileon ENDOMYSIAL IGA Negative Normal Negative [facility] Comment on above: Performed By: #### L 300.3900, L300.4310, L101.9900, L3410.2400, L100.0500, L501.6710, L500.4050 #### [facility] [address] [place], [place], [id number] IMMUNOGLOB A QN 193 mg/dL Normal 87-352 [facility] Comment on above: Result Comment: Perf ormed at: [facility] [id number] [employer] Machine Operator Helper: Jeronimo Means PhD, Phone: [phone] Performed By: #### L 300.3900, L300.4310, L101.9900, L3410.2400, L100.0500, L501.6710, L500.4050 #### [facility] [address] [place], [address] tTG IGA 3 U/mL Normal 0-3 [facility] Comment on above: Result Comment: Nega tive 0 - 3 Weak Positive 4 - 10 Positive >10 Tissue Transglutaminase (tTG) has been identified as the endomysial antigen. Studies have demonstr- ated that endomysial IgA antibodies have over 99% specificity for gluten sensitive enteropathy. Performed By: #### L 300.3900, L300.4310, L101.9900, L3410.2400, L100.0500, L501.6710, L500.4050 #### [facility] [address] [place], [address] Activated partial thrombopla stin time (aPTT) in platelet poor plasma by coagulation aOrdered By: Jeronimo Perez on 11-17-2024 aPTT Coag (PPP) [Time] 33.8 s 24.1-36.2 [facility] Anion gap in Serum or Plasma Ordered By: Jeronimo Perez on 11-17-2024 Anion gap [Moles/Vol] 16 mmol/L High 5-15 [facility] Automated blood erythrocyte countOrdered By: Jeronimo Perez on 11-17-2024 RBC (Bld) [#/Vol] 3.39 10*6/uL Low 4.2-5.4 [facility] Comment on above: Performed By: #### L 300.3900, L300.4310, L101.9900, L3410.2400, L100.0500, L501.6710, L500.4050 #### [facility] [address] [place], [address] Automated blood hematocrit ( percentage)Ordered By: Jeronimo Perez on 11-17-2024 Hematocrit (Bld) [Volume fraction] 32.0 % Low 37-47 [facility] Comment on above: Performed By: #### L 300.3900, L300.4310, L101.9900, L3410.2400, L100.0500, L501.6710, L500.4050 #### [facility] [address] [place], [address] BUN/creatinine ratioOrdered By: Jeronimo Perez on 11-17-2024 Urea nitrogen/Creatinine [Mass ratio] 18.6 mg/mg 10-20 [facility] Bilirubin, totalOrdered By: Jeronimo Perez on 11-17-2024 Bilirubin [Mass/Vol] 0.59 mg/dL 0.00-1.30 [facility] CBC-Complete Blood Cnt No Di ffon 11-17-2024 RDW SD 57.1 fl High 35.1-43.9 [facility] Comment on above: Performed By: #### L 300.3900, L300.4310, L101.9900, L3410.2400, L100.0500, L501.6710, L500.4050 #### [facility] [address] [place], [address] CRPon 11-17-2024 C-REACTIVE PROT 128.00 mg/L High 0.0-3.0 [facility] Comment on above: Performed By: #### L 300.3900, L300.4310, L101.9900, L3410.2400, L100.0500, L501.6710, L500.4050 #### [facility] [address] [place], [address] Carbon dioxide, total [Moles /volume] in Central venous bloodOrdered By: Jeronimo Perez on 11-17-2024 CO2 [Moles/Vol] 26.0 mmol/L 21.0-32.0 [facility] Chloride assayOrdered By: Belén Perez on 11-17-2024 Chloride [Moles/Vol] 100 mmol/L 98-108 [facility] Comprehensive Metabolic Prof ilon 11-17-2024 Chloride [Moles/Vol] 100 mmol/L Normal 98-108 [facility] Comment on above: Performed By: #### L 300.3900, L300.4310, L101.9900, L3410.2400, L100.0500, L501.6710, L500.4050 #### [facility] [address] [place], [address] CO2 [Moles/Vol] 26.0 mmol/L Normal 21.0-32.0 [facility] Comment on above: Performed By: #### L 300.3900, L300.4310, L101.9900, L3410.2400, L100.0500, L501.6710, L500.4050 #### [facility] [address] [place], [address] GAP 16 High 5-15 [facility] Comment on above: Performed By: #### L 300.3900, L300.4310, L101.9900, L3410.2400, L100.0500, L501.6710, L500.4050 #### [facility] [address] [place], [address] Potassium [Moles/Vol] 3.5 mmol/L Normal 3.3-5.1 [facility] Comment on above: Performed By: #### L 300.3900, L300.4310, L101.9900, L3410.2400, L100.0500, L501.6710, L500.4050 #### [facility] [address] [place], [address] Sodium [Moles/Vol] 142 mmol/L Normal 133-145 [facility] Comment on above: Performed By: #### L 300.3900, L300.4310, L101.9900, L3410.2400, L100.0500, L501.6710, L500.4050 #### [facility] [address] [place], [address] Albumin [Mass/Vol] 3.7 g/dL Normal 3.4-4.8 [facility] Comment on above: Performed By: #### L 300.3900, L300.4310, L101.9900, L3410.2400, L100.0500, L501.6710, L500.4050 #### [facility] [address] [place], [address] Albumin/Globulin [Mass ratio] 1.2 {ratio} Normal 0.9-2.4 [facility] Comment on above: Performed By: #### L 300.3900, L300.4310, L101.9900, L3410.2400, L100.0500, L501.6710, L500.4050 #### [facility] [address] [place], [address] ALK PHOS 131 U/L High 35-104 [facility] Comment on above: Performed By: #### L 300.3900, L300.4310, L101.9900, L3410.2400, L100.0500, L501.6710, L500.4050 #### [facility] [address] [place], [address] ALT [Catalytic activity/Vol] 97 U/L High <=34 [facility] Comment on above: Performed By: #### L 300.3900, L300.4310, L101.9900, L3410.2400, L100.0500, L501.6710, L500.4050 #### [facility] [address] [place], [address] AST [Catalytic activity/Vol] 110 U/L High <=31 [facility] Comment on above: Performed By: #### L 300.3900, L300.4310, L101.9900, L3410.2400, L100.0500, L501.6710, L500.4050 #### [facility] [address] [place], [address] Bilirubin [Mass/Vol] 0.59 mg/dL Normal 0.00-1.30 [facility] Comment on above: Performed By: #### L 300.3900, L300.4310, L101.9900, L3410.2400, L100.0500, L501.6710, L500.4050 #### [facility] [address] [place], [address] BUN/CRE 18.6 RATIO Normal 10-20 [facility] Comment on above: Performed By: #### L 300.3900, L300.4310, L101.9900, L3410.2400, L100.0500, L501.6710, L500.4050 #### [facility] [address] [place], [address] Calcium [Mass/Vol] 11.9 mg/dL High 7.6-11.0 [facility] Comment on above: Performed By: #### L 300.3900, L300.4310, L101.9900, L3410.2400, L100.0500, L501.6710, L500.4050 #### [facility] [address] [place], [address] Creatinine [Mass/Vol] 2.07 mg/dL High 0.70-1.20 [facility] Comment on above: Performed By: #### L 300.3900, L300.4310, L101.9900, L3410.2400, L100.0500, L501.6710, L500.4050 #### [facility] [address], [address] GFR/1.73 sq M.predicted among non-blacks MDRD (S/P/Bld) [Vol rate/Area] 26 mL/min/{1.73_m2} Low >60 [facility] Comment on above: Result Comment: mL/m in/1.73m2 CKD-EPI Creatinine Equation (2020) Performed By: #### L 300.3900, L300.4310, L101.9900, L3410.2400, L100.0500, L501.6710, L500.4050 #### [facility] [address] [place], [address] Globulin (S) [Mass/Vol] 3.2 g/dL Normal 2.2-4.2 [facility] Comment on above: Performed By: #### L 300.3900, L300.4310, L101.9900, L3410.2400, L100.0500, L501.6710, L500.4050 #### [facility] [address], [address] Glucose [Mass/Vol] 106 mg/dL High 70-99 [facility] Comment on above: Performed By: #### L 300.3900, L300.4310, L101.9900, L3410.2400, L100.0500, L501.6710, L500.4050 #### [facility] [address] [place], [address] T PROT 6.9 g/dL Normal 5.9-8.4 [facility] Comment on above: Performed By: #### L 300.3900, L300.4310, L101.9900, L3410.2400, L100.0500, L501.6710, L500.4050 #### [facility] [address] [place], [place], [id number] Urea nitrogen [Mass/Vol] 39 mg/dL High 4-19 [facility] Comment on above: Performed By: #### L 300.3900, L300.4310, L101.9900, L3410.2400, L100.0500, L501.6710, L500.4050 #### [facility] [address] [place], [address] Erythrocyte Sed Rateon 11-17 SED RATE 18 mm/hr Normal 0-30 [facility] Comment on above: Performed By: #### L 300.3900, L300.4310, L101.9900, L3410.2400, L100.0500, L501.6710, L500.4050 #### [facility] [address] [place], [address] Erythrocyte distribution wid th ratioOrdered By: Jeronimo Perez on 11-17-2024 Erythrocyte distribution width (RBC) [Ratio] 16.5 % High 11.6-14.6 [facility] Comment on above: Performed By: #### L 300.3900, L300.4310, L101.9900, L3410.2400, L100.0500, L501.6710, L500.4050 #### [facility] [address] [place], [address] Erythrocyte distribution wid th standard deviationOrdered By: Jeronimo Perez on 11-17-2024 Erythrocyte distribution width (RBC) [Ratio] 57.1 fl High 35.1-43.9 [facility] Erythrocyte sedimentation ra teOrdered By: Jeronimo Perez on 11-17-2024 ESR (Bld) [Velocity] 18 mm/h 0-30 [facility] Glomerular filtration rate ( GFR) estimation/1.73 sq m using serum, plasma, or whole bOrdered By: Jeronimo Perez on 11-17-2024 GFR/1.73 sq M.predicted among non-blacks MDRD (S/P/Bld) [Vol rate/Area] 26 mL/min/{1.73_m2} Low >60 [facility] Comment on above: mL/min/1.73m2 CKD-EP I Creatinine Equation (2020) Hemoglobin measurementOrdere d By: Jeronimo Perez on 11-17-2024 Hemoglobin (Bld) [Mass/Vol] 10.2 g/dL Low 12.0-15.0 [facility] Comment on above: Performed By: #### L 300.3900, L300.4310, L101.9900, L3410.2400, L100.0500, L501.6710, L500.4050 #### [facility] [address] [place], [address] International normalized rat io (INR) calculationOrdered By: Jeronimo Perez on 11-17-2024 INR Coag (Bld) [Relative time] 1.0 {INR} [facility] - Chemistry and C hemistry - challengeOrdered By: Jeronimo Perez on 11-17-2024 AST [Catalytic activity/Vol] 110 U/L High <32 [facility] MCV (mean corpuscular volume ) determinationOrdered By: Jeronimo Perez on 11-17-2024 MCV (RBC) [Entitic vol] 94.4 fL Normal 81-99 [facility] Comment on above: Performed By: #### L 300.3900, L300.4310, L101.9900, L3410.2400, L100.0500, L501.6710, L500.4050 #### [facility] [address] [place], [address] Mean corpuscular hemoglobin (MCH) determinationOrdered By: Jeronimo Perez on 11-17-2024 MCH (RBC) [Entitic mass] 30.1 pg Normal 27.0-32.0 [facility] Comment on above: Performed By: #### L 300.3900, L300.4310, L101.9900, L3410.2400, L100.0500, L501.6710, L500.4050 #### [facility] [address] [place], [address] Mean corpuscular hemoglobin concentration (MCHC) determinationOrdered By: Jeronimo Perez on 11-17-2024 MCHC (RBC) [Mass/Vol] 31.9 g/dL Low 32-36 [facility] Comment on above: Performed By: #### L 300.3900, L300.4310, L101.9900, L3410.2400, L100.0500, L501.6710, L500.4050 #### [facility] [address] [place], [address] Mean platelet volume determi nationOrdered By: Jeronimo Perez on 11-17-2024 Platelet mean volume (Bld) [Entitic vol] 12.6 fL High 6.2-12.0 [facility] Comment on above: Performed By: #### L 300.3900, L300.4310, L101.9900, L3410.2400, L100.0500, L501.6710, L500.4050 #### [facility] [address] [place], [address] Partial Thromboplast Timeon 11-17-2024 aPTT Coag (Bld) [Time] 33.8 s Normal 24.1-36.2 [facility] Comment on above: Performed By: #### L 300.3900, L300.4310, L101.9900, L3410.2400, L100.0500, L501.6710, L500.4050 #### [facility] [address] [place], [address] Platelet countOrdered By: Belén Perez on 11-17-2024 Platelets (Bld) [#/Vol] 108 10*3/uL Low 150-450 [facility] Comment on above: Performed By: #### L 300.3900, L300.4310, L101.9900, L3410.2400, L100.0500, L501.6710, L500.4050 #### [facility] [address] [place], [place], [id number] Potassium measurement (mass/ volume)Ordered By: Jeronimo Perez on 11-17-2024 Potassium (Unsp spec) [Mass/Vol] 3.5 mmol/L 3.3-5.1 [facility] Prothrombin Time w/INRon INR Coag (PPP) [Relative time] 1.0 {INR} Normal [facility] Comment on above: Performed By: #### L 300.3900, L300.4310, L101.9900, L3410.2400, L100.0500, L501.6710, L500.4050 #### [facility] [address] [place], [place], [id number] PT Coag (PPP) [Time] 13.2 s Normal 11.7-14.9 [facility] Comment on above: Performed By: #### L 300.3900, L300.4310, L101.9900, L3410.2400, L100.0500, L501.6710, L500.4050 #### [facility] [address] [place], [place], [id number] Prothrombin timeOrdered By: Jeronimo Perez on 11-17-2024 PT Coag (PPP) [Time] 13.2 s 11.7-14.9 [facility] Serum creatinine measurement (mass/volume)Ordered By: Jeronimo Perez on 11-17-2024 Creatinine [Mass/Vol] 2.07 mg/dL High 0.70-1.20 [facility] Serum globulin measurementOr dered By: Jeronimo Perez on 11-17-2024 Globulin (S) [Mass/Vol] 3.2 g/dL 2.2-4.2 [facility] Serum glucose measurement (m ass/volume)Ordered By: Jeronimo Perez on 11-17-2024 Glucose [Mass/Vol] 106 mg/dL High 70-99 [facility] Serum or plasma C reactive p rotein measurement (mass/volume)Ordered By: Jeronimo Perez on 11-17-2024 CRP [Mass/Vol] 128.00 mg/L High 0.0-3.0 [facility] Serum or plasma IgA measurem ent (mass/volume)Ordered By: Jeronimo Perez on 11-17-2024 IgA [Mass/Vol] 193 mg/dL 87-352 [facility] Comment on above: Performed at: [facility] [employer] [address] [id number] Director: Jeronimo Means PhD, Phone: [phone] Serum or plasma alanine baker otransferase (ALT) measurementOrdered By: Jeronimo Perez on 11-17-2024 ALT [Catalytic activity/Vol] 97 U/L High <35 [facility] Serum or plasma albumin matt urement (mass/volume)Ordered By: Jeronimo Perez on 11-17-2024 Albumin [Mass/Vol] 3.7 g/dL 3.4-4.8 [facility] Serum or plasma albumin/glob ulin mass ratioOrdered By: Jeronimo Perez on 11-17-2024 Albumin/Globulin [Mass ratio] 1.2 {ratio} 0.9-2.4 [facility] Serum or plasma alkaline adama sphatase measurementOrdered By: Jeronimo Perez on 11-17-2024 ALP [Catalytic activity/Vol] 131 U/L High 35-104 [facility] Serum or plasma calcium matt urement (mass/volume)Ordered By: Jeronimo Perez on 11-17-2024 Calcium [Mass/Vol] 11.9 mg/dL High 7.6-11.0 [facility] Serum or plasma urea nitroge n measurement (mass/volume)Ordered By: Jeronimo Perez on 11-17-2024 Urea nitrogen [Mass/Vol] 39 mg/dL High 4-19 [facility] Serum tissue transglutaminas e (tTG) IgA antibody assay (units/volume)Ordered By: Jeronimo Perez on 11-17-2024 tTG IgA Qn (S) 3 U/mL 0-3 [facility] Comment on above: Negative 0 - 3 Weak Positive 4 - 10 Positive >10 Tissue Transglutaminase (tTG) has been identified as the endomysial antigen. Studies have demonstr- ated that endomysial IgA antibodies have over 99% specificity for gluten sensitive enteropathy. Sodium levelOrdered By: Bess Perez on 11-17-2024 Sodium [Moles/Vol] 142 mmol/L 133-145 [facility] Total proteinOrdered By: Silver Perez on 11-17-2024 Protein [Mass/Vol] 6.9 g/dL 5.9-8.4 [facility] White blood cell (WBC) count Ordered By: Bessbrynn Nelida on 11-17-2024 WBC (Bld) [#/Vol] 6.7 10*3/uL Normal 4.4-11.0 [facility] Comment on above: Performed By: #### L 300.3900, L300.4310, L101.9900, L3410.2400, L100.0500, L501.6710, L500.4050 #### [facility] [address] [place], [address] CT ABDOMEN/PELVIS W/ CONTRAS Ton 08-27-2024 CT ABDOMEN/PELVIS W/ CONTRAST EXAMINATION: CT ABDOMEN/PELVIS W/ CONTRAST 08/25/2024 01:40 PM CLINICAL HISTORY: Abdominal pain ASSOCIATED DIAGNOSIS: Abdominal pain, acute Acute dilatation of stomach Bloating symptom ORDERING PROVIDER: RANJITH LING [employer] NOTE: COMPARISON: There are no prior studies available for comparison. TECHNIQUE: Contiguous axial images were obtained through the abdomen and pelvis from the level of the diaphragmatic domes through the pubic symphysis following bolus administration of intravenous contrast. MPR sagittal and coronal reconstructions were obtained from the axial data. Before infusion of intravenous contrast, radiology personnel investigated the possibility of an allergic history and of any history of reaction to iodinated contrast material. Contrast Protocol: Omnipaque 350 [>or =100lb] 100 ml [<100 lb] 1 ml per 1 lb. INTRA-PROCEDURE MEDS: iohexol (OMNIPAQUE) 300 MG/ML injection 50 mL Route: Oral iohexol (OMNIPAQUE) 350 MG/ML injection 100 mL Route: Intravenous Push FINDINGS: Included images of the lower thorax: The visualized lung bases are clear and interstitial markings are normal with no evidence of pleural disease. The visualized cardiac structures are grossly normal. Hepatobiliary: The liver measures 187 mm in longitudinal dimension along the midclavicular line and is mildly decreased in density relative to the spleen with no evidence of focal lesions or abnormal enhancement. The gallbladder is normal with no evidence of gallstones or inflammatory change and the intrahepatic and extrahepatic bile ducts are normal. Pancreas: There is mild to moderate diffuse atrophy of the pancreas. The pancreas is otherwise normal with no evidence of focal lesions, abnormal enhancement, ductal dilatation or inflammatory change. Spleen: The spleen measures 138 x 90 x 178 mm and is normal in density with no evidence of focal lesions or abnormal enhancement. Adrenal Glands: The adrenal glands are normal in size and shape with no evidence of focal lesions or abnormal enhancement. Kidneys, ureters and bladder: There are nonobstructing renal stones within the mid and lower poles of the right kidney ranging in size from 3 mm to 5 mm. There are multiple low-density lesions scattered throughout the left kidney ranging in size from 2 mm to 4 mm, which are too small to accurately characterize by CT and may represent small cysts. The kidneys are normal in size and shape with no evidence of other focal lesions or left renal stones. There is heterogeneous enhancement of both kidneys was small subsegmental foci of decreased enhancement that are greater on the left. There is normal uptake, concentration and excretion of intravenous contrast within both kidneys and the intrarenal and extrarenal collecting systems. The visualized are grossly normal with no evidence of ureterolithiasis. The bladder is collapsed and grossly normal with no evidence of bladder stones. Abdominal and pelvic vasculature: The abdominal aorta is normal in caliber and moderately tortuous with moderate patchy atherosclerotic calcification extending into the bifurcation and both common iliac arteries with no evidence of flow-limiting stenosis. There is pronounced calcification of the origins of celiac and superior mesenteric and flow limiting stenoses cannot be excluded. There is mild calcification of the origins of arteries without gross evidence of flow-limiting stenosis. There is pronounced compression of the left renal vein as it crosses the aorta by the superior mesenteric artery (axial image 52) and the aortomesenteric angle is 15 degrees (less than 25 degrees is pathologic). The inferior vena cava and portal venous system are normal. GI tract: The stomach, duodenum, proximal small bowel and distal small bowel are not opacified with oral contrast and grossly normal. The remaining small bowel is opacified with oral contrast and normal with no evidence of obstruction or inflammatory change. The descending colon and sigmoid colon are collapsed and grossly normal. There is a mild amount of gas and stool throughout the right colon and transverse colon and the remaining large bowel and collapsed rectum are grossly normal. The appendix is grossly normal. Peritoneum and retroperitoneum: There is no evidence of free air or free fluid throughout the abdomen and pelvis. Lymph Nodes: There is no evidence of adenopathy throughout the abdomen and pelvis. Uterus and adnexa: The uterus is appropriate in size for the patient's age and grossly normal in density. The endometrial canal is not visualized. The visualized ovaries and adnexa are grossly normal. Visualized musculoskeletal structures: There is moderate osteopenia throughout study and the visualized vertebral bodies, pedicles and posterior lamina are intact and the visualized vertebral body heights are normal. There is mild to moderate degenerative change of the visualized thoracic spine with multilevel disc space narrowing a (more content not included)... Normal [facility] [employer] [facility] Bacteria Ur Culton 5 Bacteria identified Cx Nom (U) ORGANISM ID: 1 10,000 -<50,000 CFU/ml Mixed microbiota No further workup. Mixed microbiota can be due to???urine???contamin ation with skin bacteria at time of collection or presence of a long-term urinary catheter. If a new culture is needed, please consider re-education of the patient on proper midstream co llection technique or straight catheterization for???urine???collect ion. Normal [facility] Comment on above: Performed By: #### 6 30-4 #### [facility] CLIA [id number] [address] [place] [address] [place] CNOVon 08-22-2024 CNOV Office Visit ([facility] ) KERRY CHAO ([id number]) 1955 F Date Time Provider Department 08/22/24 1:45 PM TO ALCARAZ [facility] During your visit today, we recorded the following information about you: Temperature Pulse Respiration Blood pressure 98.9 degrees 94/minute 16/minute 122/68 Weight 48.7 kg GabeTo mercerAPRN.DIRECTOR MUSIC 08/22/2024 2:21 PM Signed [facility] Subjective Kerry Chao is a 68 year old female c/o left lower flank and abdomen pain in last 2 weeks, burning and tingling at times, no tenderness or swelling, has CT scan this week for bloating after eating, decreased urination Patient presents with: Abdominal Pain: left side abdominal back migrating into mid back x 1 week The history is provided by the patient. Abdominal Pain This is a new problem. The problem occurs daily. The problem has not changed since onset.The pain is located in the LLQ. The quality of the pain is burning. The pain is moderate. Associated symptoms include arthralgias. Pertinent negatives include anorexia, fever, belching, diarrhea, flatus, hematochezia, melena, nausea, vomiting, constipation, dysuria, frequency, hematuria, headaches and myalgias. Nothing relieves the symptoms. Review of Systems Constitutional: Negative for chills, fatigue and fever. HENT: Negative. Eyes: Negative. Respiratory: Negative for cough and shortness of breath. Cardiovascular: Negative. Gastrointestinal: Positive for abdominal pain. Negative for anorexia, constipation, diarrhea, flatus, hematochezia, melena, nausea and vomiting. Genitourinary: Positive for decreased urine volume and flank pain. Negative for difficulty urinating, dysuria, frequency, hematuria and urgency. Musculoskeletal: Positive for arthralgias. Negative for myalgias. Skin: Negative. Neurological: Negative for headaches. Objective BP 122/68 Pulse 94 Temp 37.2 ?C (98.9 ?F) Resp 16 Wt 48.7 kg (107 lb 5.8 oz) SpO2 95% Physical Exam Vitals and nursing note reviewed. Constitutional: Appearance: Normal appearance. Cardiovascular: Rate and Rhythm: Regular rhythm. Heart sounds: Normal heart sounds. Pulmonary: Effort: Pulmonary effort is normal. Breath sounds: Normal breath sounds. Abdominal: General: There is no distension. Palpations: There is no mass. Tenderness: There is no abdominal tenderness. There is no right CVA tenderness, left CVA tenderness, guarding or rebound. Hernia: No hernia is present. Skin: General: Skin is dry. Neurological: General: No focal deficit present. Mental Status: She is alert and oriented to person, place, and time. {ASSESSMENT/PLAN: 1. UTI symptoms - ICD9: 788.99, ICD10: R39.9 - - UA DIP, URINE (POC)- positive for armani/ket/ and leukocytes, suspect UTI - BACTERIAL CULTURE, URINE - Will call if any changes needed in antibiotic - follow up with PCP if not improving with treatment in next week - supportive care with rest, hydration and OTC antipyretics such as motrin or tylenol for minor aches - go to ER if pain severe or uncontrollable To Alcaraz APRN.CNP -I have reviewed and updated with the patient: allergies, VS, current medications, Past Medical History,Past Surgical History,Past Family Medical History, Past Social History. - Patient education provided today - Discussed with patient medications that are indicated and how to use the medications and what the potential side effects are. - Warning signs of worsening condition explained to patient -Instructed to follow up with PCP if symptoms not improving in next 2-3 days - Patient left in stable condition after questions answered and patient verbalizes understanding - Instructed to go to Emergency Department right away with any severe worsening chest pain, shortness of breath, headache, dizziness, weakness, numbness,leg swelling , tingling, problems walking or speaking or any other concerning symptoms Differential Diagnoses - UTI is more likely for the following reason(s): consistent with laboratory studies and suggested by HANDP - kidney stone is less likely for the following reason(s): HANDP not suggestive Disposition The patient was discharged. OTC Medications were advised: To Alcaraz APRN.CNP 08/22/2024 2:15 PM Addendum ASSESSMENT/PLAN: 1. UTI symptoms - ICD9: 788.99, ICD10: R39.9 (primary diagnosis) - UA DIP, URINE (POC)- positive for leukocytes, will start antibiotic for possible UTI - BACTERIAL CULTURE, URINE- Will call if any changes needed in antibiotic - NITROFURANTOIN MONOHYDRATE AND MACROCRYSTAL 100 MG ORAL CAP 2. Acute left flank pain - ICD9: 789.09, 338.19, ICD10: R10.9 - Increase fiber in diet - Morris low residue diet - IBUPROFEN 400 MG TABLET - follow up with PCP if not improving, continue plan for CT scan this week To Alcaraz APRN.DIRECTOR MUSIC -I have reviewed and upda (more content not included)... Normal [facility] UA DIP, URINE (POC)on 2024 BILIRUBIN UA (POCT) Small Abnormal Negative [facility] CLARITY UA (POCT) Clear [facility] COLOR UA (POCT) Yellow [facility] GLUCOSE UA (POCT) Negative Negative mg/dL [facility] Hemoglobin Ql (U) Negative [facility] Interpretation and review of laboratory results Abnormal [facility] KETONE UA (POCT) Trace Negative mg/dL [facility] LEUKOCYTES UA (POCT) Trace Abnormal Negative [facility] NITRITE UA (POCT) Negative Negative [facility] PH UA (POCT) 5.5 4.5 - 8.0 [facility] Protein Ql (U) Negative Negative mg/dL [facility] SPECIFIC GRAVITY UA (POCT) 1.025 1.005 - 1.030 [facility] UROBILINOGEN UA (POCT) 0.2 Meaghan l E.U./dL [facility] Location:[facility], [address] [place] [address], [place], [place], [id number] [place] [address] POINT OF CARE [facility] LABORATORYOrdered By: SYSTEM SYSTEM on 11-19-2023 25-hydroxyvitamin D3 [Mass/Vol] 54.9 ng/mL Invalid Interpretation Code AO ADM SS Comment on above: Interpretive Data: I nterpretive Values Based on Total 25(OH) Vitamin D: Deficient <20 ng/mL Insufficient 20 - <30 ng/mL Sufficient 30-100 ng/mL Albumin BCP dye [Mass/Vol] 3.7 G/dL Normal 3.4 - 4.8 G/dL AO ADM SS Albumin/Globulin [Mass ratio] 1.1 {ratio} Normal 1.1 - 2.5 ratio AO ADM SS ALP [Catalytic activity/Vol] 111 U/L Normal 40 - 135 U/L AO ADM SS ALT With P-5'-P [Catalytic activity/Vol] 20 U/L Normal 14 - 59 U/L AO ADM SS AST With P-5'-P [Catalytic activity/Vol] 21 U/L Normal 10 - 40 U/L AO ADM SS Basophils (Bld) [#/Vol] 0.0 103/mcL Normal 0.0 - 0.2 10^3/mcL AO Workflow SS Basophils/100 WBC (Bld) 0.7 % Normal 0.0 - 2.5 % AO Workflow SS Bilirubin [Mass/Vol] 0.7 mg/dL Normal 0.2 - 1 .0 mg/dL AO ADM SS Comment on above: Interpretive Data: U se of this assay is not recommended for patients undergoing treatment with eltrombopag due to the potential for falsely elevated results. Calcium [Mass/Vol] 9.3 mg/dL Normal 8.4 - 10. 2 mg/dL AO ADM SS Chloride [Moles/Vol] 106 mmol/L Normal 98 - 10 7 mmol/L AO ADM SS CO2 [Moles/Vol] 30 mmol/L Normal 23 - 31 mmol/L AO ADM SS Creatinine [Mass/Vol] 0.86 mg/dL Normal 0.55 - 1.02 mg/dL AO ADM SS Comment on above: Interpretive Data: T esting performed on Siemens Dimension EXL analyzer using a modified kinetic Dalia technique. Electrolyte Balance 6.0 mEq/L Normal 4.0 - 15 .0 mEq/L AO ADM SS Eosinophil, Absolute 0.2 103/mcL Normal 0.0 - 0 .4 10^3/mcL AO Workflow SS Eosinophils/100 WBC (Bld) 2.6 % Normal 0.0 - 7.0 % AO Workflow SS Erythrocyte distribution width (RBC) [Ratio] 13.2 % Normal 11.5 - 14.5 % AO Workflow SS GFR/1.73 sq M.predicted among blacks MDRD (S/P/Bld) [Vol rate/Area] 80 ml/min/1.73sqm Invalid Interpretation Code AO Chemistry S Comment on above: Interpretive Data: GFR Population mean for , Non- Americans Ages 20-29 = 116 mL/min/1.73 sq.m. Ages 30-39 = 107 mL/min/1.73 sq.m. Ages 40-49 = 99 mL/min/1.73 sq.m. Ages 50-59 = 93 mL/min/1.73 sq.m. Ages 60-69 = 85 mL/min/1.73 sq.m. Ages 70+ = 75 mL/min/1.73 sq.m. Chronic Kidney Disease: Less than 60 mL/min/1.73 square meters End Stage Renal Disease: Less than 15 mL/min/1.73 square meters GFR/1.73 sq M.predicted among non-blacks MDRD (S/P/Bld) [Vol rate/Area] 66 ml/min/1.73sqm Invalid Interpretation Code AO Chemistry S Comment on above: Interpretive Data: GFR Population mean for , Non- Americans Ages 20-29 = 116 mL/min/1.73 sq.m. Ages 30-39 = 107 mL/min/1.73 sq.m. Ages 40-49 = 99 mL/min/1.73 sq.m. Ages 50-59 = 93 mL/min/1.73 sq.m. Ages 60-69 = 85 mL/min/1.73 sq.m. Ages 70+ = 75 mL/min/1.73 sq.m. Chronic Kidney Disease: Less than 60 mL/min/1.73 square meters End Stage Renal Disease: Less than 15 mL/min/1.73 square meters Globulin 3.3 G/dL Invalid Interpretation Code AO ADM SS Glucose [Mass/Vol] 103 mg/dL Invalid Interpretation Code AO Chemistry S Comment on above: Interpretive Data: E stimated average glucose (eAG) is a calculated value from Hemoglobin A1C and is operations representative of the average blood glucose level in the last 2-3 month period. Normal range: less than 114 mg/dL Glucose [Mass/Vol] 89 mg/dL Normal 80 - 115 mg/dL AO ADM SS HbA1c (Bld) [Mass fraction] 5.2 % Normal 4.3 - 6.4 % AO ADM SS Hematocrit (Bld) [Volume fraction] 43.4 % Normal 37.0 - 47.0 % AO Workflow SS Hemoglobin (Bld) [Mass/Vol] 14.6 G/dL Normal 12.0 - 16.0 G/dL AO Workflow SS Lymphocytes (Bld) [#/Vol] 2.8 103/mcL Normal 0.8 - 3.9 10^3/mcL AO Workflow SS Lymphocytes/100 WBC (Bld) 41.5 % Normal 10.0 - 50.0 % AO Workflow SS MCH (RBC) [Entitic mass] 32.3 pg High 27.0 - 31.2 pg AO Workflow SS MCHC 33.6 G/dL Normal 33.0 - 37.0 G/dL AO Workflow SS MCV (RBC) [Entitic vol] 96.2 fL High 80.0 - 94.0 fL AO Workflow SS Monocytes (Bld) [#/Vol] 0.4 103/mcL Normal 0.2 - 1.0 10^3/mcL AO Workflow SS Monocytes/100 WBC (Bld) 6.5 % Normal 1.7 - 13.0 % AO Workflow SS Neutrophils (Bld) [#/Vol] 3.3 103/mcL Normal 2.9 - 6.2 10^3/mcL AO Workflow SS Neutrophils/100 WBC (Bld) 48.7 % Normal 37.0 - 80.0 % AO Workflow SS Platelet mean volume (Bld) [Entitic vol] 9.2 fL Normal 7.4 - 10.4 fL AO Workflow SS Platelets (Bld) [#/Vol] 146 103/mcL Normal 130 - 400 10^3/mcL AO Workflow SS Potassium [Moles/Vol] 4.5 mmol/L Normal 3.5 - 5.1 mmol/L AO ADM SS Protein [Mass/Vol] 7.0 G/dL Normal 6.4 - 8.2 G/dL AO ADM SS RBC (Bld) [#/Vol] 4.51 106/mcL Normal 4.20 - 5.4 0 10^6/mcL AO Workflow SS Sodium [Moles/Vol] 142 mmol/L Normal 136 - 145 mmol/L AO ADM SS Urea nitrogen [Mass/Vol] 18 mg/dL Normal 7 - 18 mg/dL AO ADM SS Urea nitrogen/Creatinine [Mass ratio] 21 ratio Normal 7 - 27 ratio AO ADM SS WBC (Bld) [#/Vol] 6.8 103/mcL Normal 4.6 - 10.8 10^3/mcL AO Workflow SS LABORATORYOrdered By: Vernell Best on 11-19-2023 Cholesterol [Mass/Vol] 205 mg/dL High 0 - 200 mg/dL AO ADM SS Comment on above: Interpretive Data: C holesterol Reference Interval: Less than 200 Desirable 200-239 Borderline high risk 240 and above High risk Cholesterol in HDL [Mass/Vol] 67 mg/dL High 40 - 60 mg/dL AO ADM SS Cholesterol in LDL [Mass/Vol] 125 mg/dL Normal 0 - 130 mg/dL AO ADM SS Triglyceride [Mass/Vol] 67 mg/dL Normal 0 - 150 mg/dL AO ADM SS Comment on above: Interpretive Data: T riglyceride Reference Interval: Less than 150 Normal 150-199 Borderline high risk 200-499 High risk 500 or higher Very high risk CT HEAD OR BRAIN W/O CONTRAS Ton 08-30-2023 CT HEAD OR BRAIN W/O CONTRAST ORIGINAL EXAMINATION: CT OF THE HEAD WITHOUT CONTRAST 08/30/2023 3:03 pm TECHNIQUE: CT of the head was performed without the administration of intravenous contrast. Automated exposure control, iterative reconstruction, and/or weight based adjustment of the mA/kV was utilized to reduce the radiation dose to as low as reasonably achievable. COMPARISON: None available HISTORY: ORDERING SYSTEM PROVIDED HISTORY: Reason for Exam: fall with headstrike FINDINGS: Electromechanical Technologist (topogram) images: Unremarkable BRAIN/VENTRICLES: No evidence of acute hemorrhage, mass effect or midline shift. Olivares-white matter differentiation is well maintained. No evidence of intra-axial mass lesion or extra-axial fluid collection. The ventricular system and basal cisterns are patent and normal in morphology. Scattered white matter hypodensities are nonspecific but statistically most consistent with mild chronic microvascular angiopathy. Carotid siphon calcifications are present. ORBITS: The visualized portions of the orbits demonstrate no acute abnormality. SINUSES: The paranasal sinuses and mastoid air cells are unremarkable. SOFT TISSUE/SKULL: No acute abnormality of the visualized skull or soft tissues. ADDITIONAL FINDINGS: None. IMPRESSION: No acute intracranial abnormality. Chronic microvascular changes. I have personally reviewed the images of this examination and agree with the resident's findings and interpretation. Interpreted by: Morgan Leggett MD Preliminary Report By: Colby Calix Electronically signed By Morgan Leggett MD Dictated Date: 08/30/2023 3:05:00 PM Prelim Date: 08/30/2023 3:13:29 PM Sign Date: 08/30/2023 3:13:29 PM Ordering Provider: HEAVEN Jay [facility] ([place]) Darian 09-18-2022 U Creatinine 148.2 mg/dL High 28.0-117.0 [facility] ([place]) Comment on above: Performed By: #### M ALBR #### Lissy [address] [address] U Microalb 2631 mcg/dL Normal [facility] ([place]) Comment on above: Performed By: #### M ALBR #### [facility] [address], [place] [address] U Ratio Alb/Cre 18 mcg/mg Normal 0-30 [facility] ([place]) Comment on above: Performed By: #### M ALBR #### [facility] [address], [place] [address] LABORATORYOrdered By: Dina Brooks on 06-20-2021 Adenovirus DNA TAB+non-probe Ql (Nph) Not Detected *NA* (06/20/21 9:53 AM) Invalid Interpretation Code Not Detected AH Auto Viro/Sero SS ADMITTED TO INTENSIVE CARE UNIT FOR CONDITION OF INTEREST:FIND:PT:^LEDY ENT:ORD: No (06/20/21 9:53 AM) Invalid Interpretation Code AH Auto Viro/Sero SS B. pertussis toxin promoter region TAB+non-probe Ql (Nph) Not Detected *NA* (06/20/21 9:53 AM) Invalid Interpretation Code Not Detected AH Auto Viro/Sero SS Bordetella Parapertussis Not Detected *NA* (06/20/21 9:53 AM) Invalid Interpretation Code Not Detected AH Auto Viro/Sero SS C. pneumoniae DNA TAB+non-probe Ql (Nph) Not Detected *NA* (06/20/21 9:53 AM) Invalid Interpretation Code Not Detected AH Auto Viro/Sero SS EMPLOYED IN A HEALTHCARE SETTING:FIND:PT:^PATIE NT:ORD: No (06/20/21 9:53 AM) Invalid Interpretation Code AH Auto Viro/Sero SS FIRST TEST FOR CONDITION OF INTEREST:FIND:PT:^LEDY ENT:ORD: Unknown (06/20/21 9:53 AM) Invalid Interpretation Code AH Auto Viro/Sero SS FLUAV H3 RNA TAB+non-probe Ql (Nph) Detected 1 *ABN* (06/20/21 9:53 AM) Invalid Interpretation Code Not Detected AH Auto Viro/Sero SS Comment on above: Result Comment: This organism causes a reportable disease. Infection Control has been notified. Results have been reported to the [facility]. FLUBV RNA TAB+non-probe Ql (Nph) Not Detected *NA* (06/20/21 9:53 AM) Invalid Interpretation Code Not Detected AH Auto Viro/Sero SS HAS SYMPTOMS RELATED TO CONDITION OF INTEREST:FIND:PT:^LEDY ENT:ORD: Yes (06/20/21 9:53 AM) Invalid Interpretation Code Auto Viro/Sero SS hMPV RNA TAB+non-probe Ql (Nph) Not Detected *NA* (06/20/21 9:53 AM) Invalid Interpretation Code Not Detected AH Auto Viro/Sero SS Illness or injury onset date and time [id number] Invalid Interpretation Code Auto Viro/Sero SS M. pneumoniae DNA TAB+non-probe Ql (Nph) Not Detected *NA* (06/20/21 9:53 AM) Invalid Interpretation Code Not Detected Auto Viro/Sero SS Parainfluenza virus 1 RNA TAB+non-probe Ql (Nph) Not Detected *NA* (06/20/21 9:53 AM) Invalid Interpretation Code Not Detected Auto Viro/Sero SS Parainfluenza virus 2 RNA TAB+non-probe Ql (Nph) Not Detected *NA* (06/20/21 9:53 AM) Invalid Interpretation Code Not Detected AH Auto Viro/Sero SS Parainfluenza virus 3 RNA TAB+non-probe Ql (Nph) Not Detected *NA* (06/20/21 9:53 AM) Invalid Interpretation Code Not Detected Auto Viro/Sero SS Parainfluenza virus 4 RNA TAB+non-probe Ql (Nph) Not Detected *NA* (06/20/21 9:53 AM) Invalid Interpretation Code Not Detected AH Auto Viro/Sero SS Patient was hospitalized because of this condition No (06/20/21 9:53 AM) Invalid Interpretation Code AH Auto Viro/Sero SS status Not (06/20/21 9:53 AM) Invalid Interpretation Code AH Auto Viro/Sero SS RESIDES IN A CONGREGATE CARE SETTING:FIND:PT:^PATIE NT:ORD: No (06/20/21 9:53 AM) Invalid Interpretation Code Auto Viro/Sero SS Rhinovirus+Enterovirus RNA TAB+non-probe Ql (Nph) Not Detected *NA* (06/20/21 9:53 AM) Invalid Interpretation Code Not Detected AH Auto Viro/Sero SS RSV RNA TAB+non-probe Ql (Nph) Not Detected *NA* (06/20/21 9:53 AM) Invalid Interpretation Code Not Detected AH Auto Viro/Sero SS SARS-CoV-2 (COVID-19) RNA TAB+probe Ql (Unsp spec) Not Detected *NA* (06/20/21 9:53 AM) Invalid Interpretation Code Not Detected AH Auto Viro/Sero SS Vital Signs Date Time Vital Sign Value Performing Clinician Facility 12-24-2024 15:11-0400 Body temperature 98.5 [degF] Ranjith Ling HOSPITAL PHARMACIST-C Work Phone: [facility] 12-24-2024 15:11-0400 Diastolic blood pressure 85 mm[Hg] Ranjith Ling HOSPITAL PHARMACIST-C Work Phone: [facility] 12-24-2024 15:11-0400 Heart rate 97 /min Ranjith Ling HOSPITAL PHARMACIST-C Work Phone: [facility] 12-24-2024 15:11-0400 Respiratory rate 16 /min Ranjith Mahmoodpkins HOSPITAL PHARMACIST-C Work Phone: [facility] 12-24-2024 15:11-0400 SaO2% (BldA) [Mass fraction] 95 % Ranjith Anuradha HOSPITAL PHARMACIST-C Work Phone: [facility] 12-24-2024 15:11-0400 Systolic blood pressure 162 mm[Hg] Ranjith Ling HOSPITAL PHARMACIST-C Work Phone: [facility] 12-24-2024 12:07-0400 Body height 167.64 cm Ranjith Anuradha HOSPITAL PHARMACIST-C Work Phone: [facility] 12-24-2024 12:07-0400 Body mass index (BMI) [Ratio] 18.1 kg/m2 Ranjith Anuradha HOSPITAL PHARMACIST-C Work Phone: [facility] 12-24-2024 12:07-0400 Body weight 50.8 kg Ranjith Ling HOSPITAL PHARMACIST-C Work Phone: [facility] 12-22-2024 14:33-0400 Body mass index (BMI) [Ratio] 18.1 kg/m2 Ranjith Mahmoodpkins HOSPITAL PHARMACIST-C Work Phone: [facility] 12-22-2024 14:33-0400 Body temperature 98.6 [degF] Ranjith Ling HOSPITAL PHARMACIST-C Work Phone: [facility] 12-22-2024 14:33-0400 Body weight 50.91 kg Ranjith Mahmoodpkins HOSPITAL PHARMACIST-C Work Phone: [facility] 12-22-2024 14:33-0400 Diastolic blood pressure 65 mm[Hg] Ranjith Mahmoodpkins HOSPITAL PHARMACIST-C Work Phone: [facility] 12-22-2024 14:33-0400 Heart rate 103 /min Ranjith Mahmoodpkins HOSPITAL PHARMACIST-C Work Phone: [facility] 12-22-2024 14:33-0400 Respiratory rate 18 /min Ranjith Mahmodopkins HOSPITAL PHARMACIST-C Work Phone: [facility] 12-22-2024 14:33-0400 SaO2% (BldA) [Mass fraction] 100 % Ranjith Mahmoodpkins HOSPITAL PHARMACIST-C Work Phone: [facility] 12-22-2024 14:33-0400 Systolic blood pressure 104 mm[Hg] Ranjith Mahmoodpkins HOSPITAL PHARMACIST-C Work Phone: [facility] 12-07-2024 15:00-0400 Diastolic blood pressure 72 mm[Hg] Ranjith Anuradha HOSPITAL PHARMACIST-C Work Phone: [facility] 12-07-2024 15:00-0400 Heart rate 78 /min Ranjith Bartow HOSPITAL PHARMACIST-C Work Phone: [facility] 12-07-2024 15:00-0400 SaO2% (BldA) [Mass fraction] 98 % Ranjith Bartow HOSPITAL PHARMACIST-C Work Phone: [facility] 12-07-2024 15:00-0400 Systolic blood pressure 131 mm[Hg] Ranjith Ling HOSPITAL PHARMACIST-C Work Phone: [facility] 12-07-2024 14:39-0400 Body temperature 97 [degF] Ranjith Ling HOSPITAL PHARMACIST-C Work Phone: [facility] 12-07-2024 14:39-0400 Respiratory rate 24 /min Ranjith Ling HOSPITAL PHARMACIST-C Work Phone: [facility] 12-07-2024 12:37-0400 Body height 1463.04 cm Ranjith Ling HOSPITAL PHARMACIST-C Work Phone: [facility] 12-07-2024 12:37-0400 Body mass index (BMI) [Ratio] 0 kg/m2 Ranjith Ling HOSPITAL PHARMACIST-C Work Phone: [facility] 12-07-2024 12:37-0400 Body weight 2.43 kg Ranjith Ling HOSPITAL PHARMACIST-C Work Phone: [facility] 08-22-2024 13:51-0400 Body temperature 98.91 [degF] To Alcaraz CLEANING LABORER.DIRECTOR MUSIC Work Phone: [facility] 08-22-2024 13:51-0400 Body weight 48.7 kg To Alcaraz CLEANING LABORER.DIRECTOR MUSIC Work Phone: [facility] 08-22-2024 13:51-0400 Diastolic blood pressure 68 mm[Hg] To Alcaraz CLEANING LABORER.DIRECTOR MUSIC Work Phone: [facility] 08-22-2024 13:51-0400 Heart rate 94 /min To Alcaraz CLEANING LABORER.DIRECTOR MUSIC Work Phone: [facility] 08-22-2024 13:51-0400 Respiratory rate 16 /min To Alcaraz CLEANING LABORER.DIRECTOR MUSIC Work Phone: [facility] 08-22-2024 13:51-0400 SaO2% (BldA) [Mass fraction] 95 % To Alcaraz CLEANING LABORER.DIRECTOR MUSIC Work Phone: [facility] 08-22-2024 13:51-0400 Systolic blood pressure 122 mm[Hg] To Alcaraz CLEANING LABORER.DIRECTOR MUSIC Work Phone: [facility] 08-30-2023 13:47-0400 Body temperature 97.34 [degF] ARTURO SHAIKH DO [facility] 08-30-2023 13:47-0400 Diastolic Blood Pressure Non-Invasive 75 mm[Hg] ARTURO SHAIKH DO [facility] 08-30-2023 13:47-0400 Heart rate 100 /min ARTURO SHAIKH DO [facility] 08-30-2023 13:47-0400 Respiratory rate 20 /min ARTURO SHAIKH DO [facility] 08-30-2023 13:47-0400 Systolic Blood Pressure Non-Invasive 106 mm[Hg] ARTURO SHAIKH DO [facility] Encounters Encounter Date Encounter Type Care Provider Facility Start: 01-21-2025 ambulatory Ranjith Ling Facility:[facility] Start: 01-11-2025 End: 01-11-2025 ambulatory Ranjith Ling Facility:[facility] Start: 01-06-2025 ambulatory Ten Thornton ty:[facility] Start: 12-29-2024 End: 12-29-2024 ambulatory Ranjith Ling Facility:[facility] Start: 12-29-2024 End: 12-29-2024 ambulatory Ranjith Ling Facility:[facility] Start: 12-22-2024 End: 12-22-[address] Ten Nogueira MD -[facility] Work Phone: Start: 12-22-2024 End: 12-22-2024 ambulatory Ranjith Ling HOSPITAL PHARMACIST-C Work Phone: -[facility] Start: 12-16-2024 End: 12-16-2024 ambulatory RANJITH LING CLEANING LABORER - DIRECTOR MUSIC Facility:[facility] Start: 12-16-2024 End: 12-16-2024 Patient encounter procedure RANJITH LING CLEANING LABORER - DIRECTOR MUSIC [facility] Start: 12-11-2024 ambulatory [facility] Facility :[facility] Start: 12-07-2024 End: 12-07-2024 Emergency department patient visit Ranjith Ling HOSPITAL PHARMACIST-C Work Phone: -Emergency Department Work Phone: Start: 11-26-2024 Non-patient / Non-visit Allegra Garcia -[facility] Work Phone: Start: 11-26-2024 ambulatory Allegra Hylton Facility :[facility] Start: 11-24-2024 End: 11-28-2024 Outreach Lab RANJITH LING CLEANING LABORER - DIRECTOR MUSIC [facility] Start: 11-24-2024 End: 11-28-2024 ambulatory RANJITH LING CLEANING LABORER - DIRECTOR MUSIC Facility:[facility] Start: 11-24-2024 End: 11-24-2024 Patient encounter procedure RANJITH LING CLEANING LABORER - DIRECTOR MUSIC [facility] Start: 11-17-2024 End: 11-17-2024 ambulatory Ranjith Ling HOSPITAL PHARMACIST-C Work Phone: -[facility] Start: 11-17-2024 End: 11-17-[address] Jeronimo Perez MD -[facility] Work Phone: Start: 11-17-2024 End: 11-17-2024 ambulatory Jeronimo spike Facility:[facility] Start: 08-25-2024 End: 08-28-2024 ambulatory RANJITH LING Facility:[facility] Start: 08-24-2024 End: 08-24-2024 Follow-up encounter Sole Villa CLEANING LABORER.DIRECTOR MUSIC Work Phone: [facility] Comment on above: Results Start: 08-22-2024 End: 08-22-2024 Office outpatient visit 25 minutes To Alcaraz CLEANING LABORER.DIRECTOR MUSIC Work Phone: [facility] Comment on above: UTI symptoms (Primar y Dx); Acute left flank pain Start: 08-22-2024 End: 08-22-2024 ambulatory RANJITH LING Facility:[facility] Start: 11-19-2023 End: 11-19-2023 Patient encounter procedure RANJITH LING CLEANING LABORER - DIRECTOR MUSIC [facility] Start: 08-30-2023 End: 08-30-2023 Emergency department patient visit ARTURO SHAIKH [facility] Start: 11-30-[address] JERONIMO PEREZ MD Fa cility:[facility] Start: 10-11-2022 Orders Only Melissa Hernadez er CLEANING LABORER.DIRECTOR MUSIC Work Phone: [facility] Comment on above: Tobacco use disorder (Primary Dx) Start: 09-30-2022 ambulatory RANJITH BENITES CLEANING LABORER - DIRECTOR MUSIC Facility:[facility] Start: 09-18-2022 End: 09-22-2022 ambulatory RANJITH LING CLEANING LABORER - DIRECTOR MUSIC Facility:[facility] Start: 01-10-2022 Telephone encounter Bonny Pena CLEANING LABORER.DIRECTOR MUSIC Work Phone: [facility] Comment on above: Results Start: 07-04-2021 End: 07-04-2021 Patient encounter procedure RANJITH LING CLEANING LABORER - DIRECTOR MUSIC [facility] Start: 06-20-2021 End: 06-20-2021 Patient encounter procedure RANJITH ILNG CLEANING LABORER - DIRECTOR MUSIC [facility] Procedures Date Procedure Procedure Detail Performing Clinician Start: 12-29-2024 Calcium measurement Baldemar Ling HOSPITAL PHARMACIST-C Work Phone: Start: 12-29-2024 Estimated creatinine clearance Ranjith Ling HOSPITAL PHARMACIST-C Work Phone: Start: 12-24-2024 Parathyroid hormone measurement Ranjith Ling HOSPITAL PHARMACIST-C Work Phone: Start: 12-22-2024 Urnls dip stick/tabl et reagent auto microscopy Ranjith Ling HOSPITAL PHARMACIST-C Work Phone: Start: 12-22-2024 Folic acid measureme nt, RBC Ranjith Ling HOSPITAL PHARMACIST-C Work Phone: Comment on above: Performed at: [address] Director: Jeronimo Means PhD, Phone: [phone] Start: 12-22-2024 Immature reticulocyt e fraction Ranjith Ling HOSPITAL PHARMACIST-C Work Phone: Start: 12-22-2024 Serum inorganic phos phate measurement Ranjith Ling HOSPITAL PHARMACIST-C Work Phone: Start: 12-22-2024 Total iron binding capacity measurement Ranjith Ling HOSPITAL PHARMACIST-C Work Phone: Start: 12-22-2024 Urine culture Ranjith price HOSPITAL PHARMACIST-C Work Phone: Start: 12-07-2024 Estimated creatinine clearance Ranjith Ling HOSPITAL PHARMACIST-C Work Phone: Start: 11-17-2024 Endomysial antibody IgA level Ranjith Ling HOSPITAL PHARMACIST-C Work Phone: Start: 08-22-2024 Urnls dip stick/tabl et rgnt auto w/o microscopy To Alcaraz CLEANING LABORER.DIRECTOR MUSIC Work Phone: Plan of Treatment Date Care Activity Detail Author Start: 08-29-2033 Urine microalbumin profile DTaP,Tdap,Td Vaccine (3 - Td or Tdap) [facility] Start: 12-13-2031 RSV Vaccine (1 - 1-d ose 75+ series) RSV Vaccine (1 - 1-dose 75+ series) [facility] Start: 08-14-2025 Screening for malign ant neoplasm of colon [facility] Start: 01-06-2025 CT of thorax with contrast Chest WITH Contrast [facility] Start: 01-06-2025 Patient encounter procedure Registered Clinical -[facility] Work Phone: Start: 12-29-2024 Patient encounter procedure Registered Clinical -Laboratory Specimen Work Phone: Start: 12-29-2024 Registered Recurring Registered Recu rring -[facility] Start: 12-29-2024 End: 12-29-2024 Patient encounter procedure Lymphadenopathy -[facility] Work Phone: Start: 12-07-2024 [facility] Start: 11-02-2024 Influenza vaccination Influenz a Vaccine (Season Ended) [facility] Start: 03-04-2024 Advance Directive Discussion Advance Directive Discussion [facility] Start: 11-03-2023 Covid-19 Vaccine ( season) Covid-19 Vaccine ( season) [facility] Start: 11-02-2022 Influenza vaccination INFLUENZA (#1) [facility] Start: 03-04-2022 ADVANCE DIRECTIVE DISCUSSION ADVANCE DIRECTIVE DISCUSSION [facility] Start: 03-04-2022 DEPRESSION ASSESSMENT DEPRESSION ASS ESSMENT [facility] Start: 2021 ADVANCE DIRECTIVE DISCUSSION ADVANCE DIRECTIVE DISCUSSION [facility] Start: 2021 BONE DENSITY BONE DENSITY [facility] Start: 2021 Screening for osteoporosis Bone Density Screening [facility] Start: 11-02-2021 Influenza vaccination INFLUENZA (#1) [facility] Start: 03-04-2021 DEPRESSION ASSESSMENT DEPRESSION ASS ESSMENT [facility] Start: 09-13-2016 Pneumococcal Vaccine : 50+ (2 of 2 - PCV) Pneumococcal Vaccine: 50+ (2 of 2 - PCV) [facility] Start: 11-09-2015 Shingrix Vaccine (2 of 3) Shingrix Vaccine (2 of 3) [facility] Start: 2006 SHINGRIX VACCINE (1 of 2) SHINGRIX VACCINE (1 of 2) [facility] Start: 2001 COLOGUARD (FIT-DNA) COLOGUARD (FIT-D NA) [facility] Start: 2001 Colonoscopy COLONOSCOPY [facility] Start: 2001 COLORECTAL CANCER SCREENING COLORECTAL CANCER SCREENING [facility] Start: [address] COLONOGRAPHY [facility] Start: 2001 DIABETES SCREEN DIABETES SCREEN [facility] Start: 2001 Diabetes Screening Diabetes Screenin g [facility] Start: 2001 FECAL OCCULT BLOOD FECAL OCCULT BLOO D [facility] Start: 2001 Lipid panel Lipid Screening [facility] Start: 2001 LIPID SCREEN LIPID SCREEN [facility] Start: 2001 Screening for malign ant neoplasm of colon [facility] Start: 2001 SIGMOIDOSCOPY SIGMOIDOSCOPY [facility] Start: 1996 Mammography MAMMOGRAM [facility] Start: 1996 Screening for malign ant neoplasm of breast Mammogram Screening [facility] Start: 12-13-1975 Urine microalbumin profile DTAP,TDAP,TD (1 - Tdap) [facility] Start: 1974 Anxiety Screening Anxiety Screening [facility] Start: 1974 Depression Screening Depression Scre ening [facility] Start: 1974 HEPATITIS C SCREENING HEPATITIS C [facility] Start: 1974 Hepatitis C screening Hepatitis C [facility] Start: 1974 HIV SCREENING HIV SCREENING [facility] Start: 1962 PNEUMOCOCCAL: 65+ (1 - PCV) PNEUMOCOCCAL: 65+ (1 - PCV) [facility] Start: 06-12-1957 COVID-19 VACCINE (#1) COVID-19 VACCI NE (#1) [facility] Bacteria identified in Urine by Culture BACTERIAL CULTURE, URINE Microbiology Routine UTI symptoms Ordered: 08/22/2024 [facility] Work Phone: Comment on above: Ordered: 08/22/2024 Bacteria identified in Urine by Culture BACTERIAL CULTURE, URINE Microbiology Routine UTI symptoms Ordered: 08/24/2024 [facility] Work Phone: Comment on above: Ordered: 08/24/2024 Patient Education ED Abdominal P ain Unkn Cause Fem [facility] Work Phone: [facility] Immunizations Immunization Date Immunization Notes Care Provider Debbie rubin 08-30-2023 tetanus toxoid, redu jocelyn diphtheria toxoid, and acellular pertussis vaccine, adsorbed ARTURO SHANTAJan DO [facility] 12-28-2016 influenza virus vaccine, unspecified formulation To Alcaraz ALEX.DIRECTOR MUSIC Work Phone: [facility] Payers Date Payer Category Payer Self-pay 2023 Unknown [id number] 2021 Private Health Insurance [id number] 2015 Private Health Insurance [id number] 1955 Unknown [id number] 2.16.8 [id number] 1955 Unknown [id number] 2.16.8 [id number] 1956 Unknown [id number] 2.16.8 [id number] 1956 Unknown [id number] 2.16.8 [id number] 1956 Unknown [id number] 2.16. [id number] 1956 Unknown [id number] 2.16. [id number] 1956 Unknown [id number] 2.16. [id number] 1956 Unknown [id number] 2.16. [id number] Unknown [id number] Unknown [id number] 2.16.8 [id number] Unknown [id number] 2.16.8 [id number] Unknown [id number] 2.16.8 [id number] Unknown [id number] 2.16.8 [id number] Unknown [id number] 2.16.8 [id number] Unknown [id number] 2.16.8 [id number] Unknown [id number] 2.16.8 [id number] Unknown [id number] 2.16.8 [id number] Unknown [id number] 2.16.8 [id number] Unknown [id number] 2.16.8 [id number] Unknown [id number] 2.16.8 [id number] Social History Date Type Detail Facility Start: 12-08-2018 Tobacco smoking status Heavy t obacco smoker (finding) [facility] Start: 1955 Sex Assigned At Female A [facility] Start: 07-04-2021 Tobacco smoking status Ex-smoker (fi nding) [facility] Start: 01-09-2022 End: 12-07-2024 Tobacco smoking status NVIS Smokes tobacco daily [facility] Work Phone: History of tobacco use Cigarette Smoker C [facility] Work Phone: Start: 01-09-2022 Tobacco use and exposure Smokeless tobacco non-user [facility] Work Phone: Start: 1955 Sex Assigned At Not on file [facility] Start: 12-30-2021 End: 01-09-2022 Exposure to SARS-CoV-2 (event) Not sure [facility] Start: 01-09-2022 End: 08-22-2024 History of Social function [facility] Start: 01-09-2022 End: 08-22-2024 Tobacco use panel [facility] Start: 04-23-2023 End: 12-22-2024 Tobacco smoking status Light tobacco smoker (finding) [facility] Start: 01-26-2019 Sex Female (finding) [facility] NEGATED: Highlighted rowStart: NINF History of tobacco use Passive smoker [facility] Work Phone: Functional Status Date Assessment Result Facility 08-30-2023 Functional Status Independent [facility] 08-30-2023 Functional Status Standard Safet y ID band on, Call device within reach, Bed in low position, Wheels locked [facility] Mental Status Date Assessment Result Facility 12-24-2024 Cognitive function Awake [facility] Medical Services Work Phone: 12-07-2024 Cognitive function Level Of Consciousness Awake [facility] Work Phone: 08-30-2023 Mental Status Orientation Oriented x 4 [facility] 08-30-2023 Mental Status [facility] Clinical Notes 06-20-2021 to 12-22-2024 Note Date & Type Note Facility 12-22-2024 Progress note [facility] 12-22-2024 Progress note Note Date/Time December 22, 2024 4:30pm [facility] [address] [place] [id number] OFFICE VISIT Date of Service: 12/22/24 1424 MR#: [id number] Acct: [id number] Name: ESTELLA CHAO Rep #: [id number] : 1955 From: Ten hernandez MD Age/Sex: 69/F Location: [facility] Status: Signed HPI Subjective Date of Service 12/22/24 Chief Complaint Abdominal distention, History of Present Illness 69-year-old female who presents with a few months history of increasing abdominal distention and left lower quadrant discomfort. She has been a smoker since her teenage, no excess alcohol. She has not had any persistent fevers or drenching night sweats. She underwent blood work that suggested possible celiac disease and was placed on a gluten-free diet and this is when she lost weight. August 25, 2024 CT abdomen and pelvis with contrast showed massive splenomegaly, fatty liver, bilateral inguinal lymph nodes but no other pathologically enlargedlymph nodes in the abdomen and pelvis, heterogeneous enhancement of both kidneysbut no masses and nonobstructing renal stones within the right kidney. The remainder of abdominal solid organs and bowel appeared normal. In October 2024 she was seen by Dr. Bobby who performed an upper GI endoscopy with duodenal biopsies that showed no evidence for celiac disease and once the dietary restriction was lifted up she has been regaining the lost weight. December 16, 2024 MRI of the abdomen: Gross splenomegaly, was a small wedge-shaped area of enhancement suggestive of a splenic infarct, liver was unremarkable, upper abdominal adenopathy at the hilum of the spleen, left para-aortic space. Federico hepatis adenopathy was estimated to be 2.6 cm in axis. [facility] Medical History (Updated 12/22/24 @ 15:[address] Ten Nogueira MD) Lymphadenopathy Depression Emphysema lung COPD (chronic obstructive pulmonary disease) Postmenopausal IBS (irritable bowel syndrome) Positive colorectal cancer screening using Cologuard test Anemia Acute distention of stomach Abdominal pain Hypertension Vitamin D deficiency Splenomegaly Family History Father Alcohol abuse Mother Heart disease Depression Social History (Updated 12/22/24 @ 14:32 by Allegra Hylton) Smoking Status: Light Smoker (<10/day) Tobacco: How many years used: 50 alcohol intake: never substance use type: does not use ROS Constitutional Constitutional: Reports systems reviewed and no addt'l complaints, except as documented, as per HPI and fatigue; Denies anorexia, fever(s) or weight loss Eyes Eyes: Reports systems reviewed and no addt'l complaints, except as documented ENT HEENT: Reports systems reviewed and no addt'l complaints, except as documented; Denies mouth lesions Cardiovascular Cardiovascular: Reports systems reviewed and no addt'l complaints, except as documented and edema; Denies chest pain with activity Respiratory/Chest Respiratory/Chest: Reports systems reviewed and no addt'l complaints, except as documented; Denies cough, dyspnea, hemoptysis or breast mass Gastrointestinal Gastrointestinal: Reports systems reviewed and no addt'l complaints, except as documented, as per HPI, abdominal pain, bloating and other Details: Left upper quadrant discomfort, she became aware of the enlarged spleen after it was brought to her attention by Dr. Bobby. ; Denies change in bowel habits, diarrhea, dyspepsia, dysphagia, excessive flatus,heartburn, hematochezia or melena Genitourinary Genitourinary: Reports systems reviewed and no addt'l complaints, except as documented, dysuria, urinary frequency and urinary urgency Musculoskeletal Musculoskeletal: Reports systems reviewed and no addt'l complaints, except as documented; Denies back pain Integumentary Integumentary: Reports systems reviewed and no addt'l complaints, except as documented; Denies new lesions Neurologic Neurologic: Reports systems reviewed and no addt'l complaints, except as documented; Denies focal weakness or paresthesias Psychiatric Psychiatric: Reports systems reviewed and no addt'l complaints, except as documented Endocrine Endocrinology: Reports systems reviewed and no addt'l complaints, except as documented Hematologic/Lymphatic Hematologic/Lymphatic: Reports other Details: Patient herself is unaware of enlarged lymph nodes. ; Denies lymphadenopathy Allergic/Immunologic Allergic/Immunologic: Reports systems reviewed and no addt'l complaints, except as documented Intake Vital Signs 12/07/24 12:37 12/22/24 14:25 12/22/24 14:33 Height 48 ft 48 ft 5 ft 6 in Weight: 50.916 kg BMI 18.1 BP 104/65 Blood Pressure Location Lt brachial Position Sitting Respiration 18 Pulse 103 H Pulse Source Monitor Temp 98.6 F Temperature Source Temporal Artery Pulse Oximetry (%) 100 Oxygen Delivery Method room air Intake Is patient in pain?: Yes (lower abdominal pain and bilateral leg swelling ) Painscale (1-10): 9 Allergies moxifloxacin (From Avelox) Allergy (Unknown, Verified 12/22/24 14:30) unknown terbinafine Allergy (Unknown, Verified 12/22/24 14:30) rash Medications ?Medication ?Instructions ?Recorded ?Confirmed ?Type cholecalciferol (vitamin D3) 1,250 1,250 [facility]cg [facility] 11/26/24 12/22/24 History mcg (50,000 unit) capsule lisinopril 10 1 tab PO QDAY BLOOD PRESSURE 11/26/24 12/22/24 History mg-hydrochlorothiazide 12.5 mg tablet vitamin B complex 1 tab PO QDAY FOR ENERGY 12/22/24 History mv-mn [id number] 1 tab PO DAILY SUPPLEMEN T 12/07/24 12/22/24 History pantoprazole 40 mg tablet,delayed 40 mg PO DAILY STOMA CH 12/07/24 12/22/24 History release Have you fallen in the past year?: No Central Venous Access Central Venous Access: No Exam Physical Exam Narrative ECOG 1 Const alert and oriented x3 General Appearance: ill appearing Positive for chronically HEENT Face and Sinus: normal facial exam Mouth: oral and palatal mucosa normal Eyes General Eye: normal appearance of both eyes Neck no lymphadenopathy and no JVD Neck Narrative: No palpably enlarged lymph nodes in the neck. Lymph Lymphatic: lymphadenopathy Lymphadenopathy Laterality: bilateral (Bilateral axillary and inguinal) Resp Auscultation: diminished lung sounds bilateral and diffuse Cardio regular rate and regular rhythm Jugular Venous Distention: Negative for JVD GI soft to palpation and non-tender Inspection: abdominal distention Palpation: splenomegaly Massive splenomegaly; Negative for ascites Back/Spine no thoracic nor lumbar tenderness Extremity no clubbing, cyanosis or edema Skin no rashes or lesions noted Neuro oriented x3, CN's II-XII intact bilaterally, moves all extremities and no focal motor deficits Coordination / Balance: [id number] test normal Speech: speech normal Gait (Neuro): normal gait Psych mental status grossly normal Coding Level of Care Code Off vis,new,level 5 Exam Problem Focused Diagnoses Splenomegaly R16.1 Lymphadenopathy R59.1 Anemia D64.9 Assessment and Plan Assessment and Plan (1) Splenomegaly: Status: Acute (2) Lymphadenopathy: Status: Acute (3) Anemia: Status: Acute Orders: Orders 2 CBC W/Diff, Automated Today D64.9 - Anemia, unspecified, R16.1 - Splenomegaly, not elsewhere classified Retic Panel Count Today D64.9 - Anemia, unspecified, R16.1 - Splenomegaly, not elsewhere classified Ferritin Today D64.9 - Anemia, unspecified, R16.1 - Splenomegaly, not elsewhereclassified Iron+Iron Binding Capacity Today D64.9 - Anemia, unspecified, R16.1 - Splenomegaly, not elsewhere classified Comprehensive Metabolic Profil Today D64.9 - Anemia, unspecified, R16.1 - Splenomegaly, not elsewhere classified Magnesium Today D64.9 - Anemia, unspecified, R16.1 - Splenomegaly, not elsewhere classified Phosphorus Today D64.9 - Anemia, unspecified, R16.1 - Splenomegaly, not elsewhere classified LDH Today D64.9 - Anemia, unspecified, R16.1 - Splenomegaly, not elsewhere classified Vitamin B12 Today D64.9 - Anemia, unspecified, R16.1 - Splenomegaly, not elsewhere classified Folates, RBC Today D64.9 - Anemia, unspecified, R16.1 - Splenomegaly, not elsewhere classified Urinalysis, Complete Today D64.9 - Anemia, unspecified, R16.1 - Splenomegaly, not elsewhere classified Culture, Urine Today D64.9 - Anemia, unspecified, R16.1 - Splenomegaly, not elsewhere classified Hepatitis B/C Profile VIII Today D64.9 - Anemia, unspecified, R16.1 - Splenomegaly, not elsewhere classified HIV Today D64.9 - Anemia, unspecified, R16.1 - Splenomegaly, not elsewhere classified Chest WITH Contrast 01/06/25 R16.1 - Splenomegaly, not elsewhere classified, R59.1 - Generalized enlarged lymph nodes Referrals General Surgery R59.1 - Generalized enlarged lymph nodes Plan 69-year-old female presenting with several months of vague illness, increasing fatigue and abdominal distention. No B symptoms, there was some weight loss when she was placed on a gluten-free diet for suspected celiac disease, she has regained that weight loss when she resumed a regular diet after celiac disease was ruled out by EGD and duodenal biopsy. Recent blood work shows a new onset anemia in 2024, negative hepatitis B and C serologies. Clinical and radiologic findings showed generalized lymphadenopathy and massive splenomegaly suggestive of a lymphoproliferative neoplastic process. Plan: 1. CT scan of the chest with IV contrast to assess for pathologic adenopathy within the chest, patient is also high risk for lung cancer with longstanding smoking since teenage. 2. Blood work including CBC, CMP, LDH, HIV, check for deficiencies of iron and B12. 3. Refer to surgery for axillary lymph node biopsy. 4. UA and C&S. 5. Follow-up after above. Ten Nogueira MD Digital Sales Planner, [facility] Divisions of Medical Oncology & Hematology Department of Internal Medicine [facility] [place] [id number] This note was generated using a voice recognition system software. Although itwas reviewed by the author prior to finalization, it may still contain incorrectwords, spelling, and punctuation that were not noted when reviewing prior to saving. If a clinically significant typo or inaccurately typed phrase is noted, please notify the author. Clinical Quality Measures Falls Risk Screening/Assistive Devices Have you fallen in the past year?: No 12/22/24 1545 <Electronically signed by Ten arana MD> Date _ Ten Nogueira MD Cosigner Signature: Date (if applicable) CC: DAVID Ling; Dr. Jeronimo Perez MD ~ [facility] Work Phone: 1(917) 326-934310-21-2025 Evaluation note* Diagnosis Onset Date Resolution Status Admit Date Anemia acute December 22, 2024 2:16pm Splenomegaly acute December 2:16pm Lymphadenopathy deleted December 032024 2:16pm Lymphadenopathy deleted December 032024 9:52am [facility] Work Phone: 1(833) 923-650910-06-2025 Discharge summary [facility] Medical Records Department [address] [place] [address] Emergency Department Summary 12/07/24 MR#: [id number] Acct: [id number] Name: ESTELLA CHAO Rep #:[id number] : 1955 68 From: Crispin Subramanian MD PCP: Ranjith Ling, HOSPITAL PHARMACIST-[facility]:DEP ER Location: ED HPI History of Present Illness Chief Complaint: Fatigue Detail of Chief Complaint: Patient sent in for fatigue, weight loss, worsening renal function, abdomin Informant: patient Onset/Context/Timing Onset: Month(s) Context: Gradual Onset Timing: Intermittent and Waxes and wanes Quality: Abdominal distention, discomfort, and multiple other symptoms Location: Multiple Current Severity: Mild Maximum Severity: Moderate Worsened by: Nothing Relieved by: Nothing Associated Symptoms Associated Symptoms: HPI narrative Narrative Narrative: Patient is a 68-year-old woman. She has history of weight loss, night sweats, abdominal distention,portal hypertension, bilateral edema, stage IV kidney disease and left renal renal stone. She was sent in for her pain. [facility] Patient is scheduled for an MRI this coming Saturday. Patient stated she was told she did have a hematology consult. There was a note attached to her chart. Apparently she was seen 2 weeks ago and therewas concern for T-cell l lymphoma. Patient had unintentional weight loss. She complains of fatigue, abdominal bloating. She denies change in color, consistency or caliber of her stool. She denies frequency of bowel movements. She denies urologic symptoms. She denies dark-colored urine. She denies bone pain. She does not report night sweats. She denies headache, visual, ocular auditory symptoms. She has trouble with speech or swallowing. She denies chest pain, pressure, tightness or heaviness. She denies dyspnea or [place] exertion. Denies orthopnea or PND. She does report swelling of her ankles recently. Patient has no history of alcohol use or cirrhosis. Prior similar symptoms: Yes Recent Illness/Hospitalization: Yes (Seen by PCP approximately 2 weeks ago. Hercreatinine at that time was ely) [facility] Medical History Depression Emphysema lung COPD (chronic obstructive pulmonary disease) Postmenopausal Lymph node enlargement IBS (irritable bowel syndrome) Positive colorectal cancer screening using Cologuard test Anemia Acute distention of stomach Abdominal pain Celiac disease Hypertension Vitamin D deficiency Splenomegaly Home Medications ?Medication ?Instructions ?Recorded ?Last Taken ?Type cholecalciferol (vitamin D3) 1,250 1,250 mcg PO [facility] [employer] 11/26/24 11/25/24 History mcg (50,000 unit) capsule lisinopril 10 1 tab PO QDAY BLOOD PRESSURE 11/26/24 12/07/24 History mg-hydrochlorothiazide 12.5 mg tablet vitamin B complex 1 tab PO QDAY FOR ENERGY 12/06/24 History mv-mn [id number] 1 tab PO DAILY SUPPLEMEN T 12/07/24 12/06/24 History pantoprazole 40 mg tablet,delayed 40 mg PO DAILY STOMA CH 12/07/24 12/06/24 History release Allergy/AdvReac Type Severity Reaction Status Date / Time moxifloxacin (From Avelox) Allergy Unknown unknown Verified 12/07/24 12:37 terbinafine Allergy Unknown rash Verified 12/07/24 12:37 Family History Father Alcohol abuse Mother Heart disease Depression Social History Smoking Status: Current every day smoker tobacco type: cigarettes alcohol intake: never ROS ROS ED Constitutional Constitutional ED: Reports sweats and weight loss; Denies chills, fever(s) or subjective Eyes Eyes: Denies blurry vision, change in vision or diplopia ENT ENT ED: Denies ear pain, rhinorrhea or sore throat Cardiovascular Cardiovascular: Denies chest pain, orthopnea, palpitations, paroxysmal nocturnaldyspnea or racing heartbeat Respiratory/Chest Respiratory/Chest: Reports cough and other Details: Patient is 1/4 pack/day smoker. She does and [place] nonproductive cough. ; Denies dyspnea, dyspnea on exertion, orthopnea, paroxysmal nocturnal dyspnea or sputum Gastrointestinal Gastrointestinal: Reports abdominal pain; Denies constipation, diarrhea, melena,nausea or vomiting Genitourinary Genitourinary ED: Denies dysuria, hematuria or urinary frequency Musculoskeletal Musculoskeletal: Denies arthralgias, back pain, myalgias or neck pain Integumentary Denies rash Neurologic Neurologic: Reports weakness; Denies headache(s) or paresthesias Endocrine Endocrinology: Denies cold intolerance or heat intolerance Hematologic/Lymphatic Hematologic/Lymphatic: Reports systems reviewed and no addt'l complaints, exceptas documented EXAM Physical Exam Const Vital Signs: 12/07/24 12:37 12/07/24 12:47 12/07/24 13:14 Temperature 97 F L Temperature Source Temporal Pulse Rate 101 H Pulse Rate [Lying] 93 Pulse Rate [Sitting (for 1 minute prior to obtaining)] 99 Pulse Rate [Standing (for 1 minute prior to obtaining)] 99 Respiratory Rate 18 Respiratory Effort Normal Non-Labored Respiratory Pattern Normal Blood Pressure 126/78 H Blood Pressure [Lying] 130/70 H Blood Pressure [Sitting (for 1 minute prior to obtaining)] 120/72 Blood Pressure [Standing (for 1 minute prior to obtaining)] 123/73 H Blood Pressure Mean 94 Blood Pressure Mean [Lying] 90 Blood Pressure Mean [Sitting (for 1 minute prior to obtaining)] 88 Blood Pressure Mean [Standing (for 1 minute prior to obtaining)] 89 Pulse Ox 98 Oxygen Delivery Method Room Air 12/07/24 13:37 12/07/24 14:00 12/07/24 14:39 Temperature 97 F L Temperature Source Pulse Rate 91 93 93 Pulse Rate [Lying] Pulse Rate [Sitting (for 1 minute prior to obtaining)] Pulse Rate [Standing (for 1 minute prior to obtaining)] Respiratory Rate 15 24 H 24 H Respiratory Effort Respiratory Pattern Blood Pressure 127/68 H 127/68 H 127/68 H Blood Pressure [Lying] Blood Pressure [Sitting (for 1 minute prior to obtaining)] Blood Pressure [Standing (for 1 minute prior to obtaining)] Blood Pressure Mean 87 87 87 Blood Pressure Mean [Lying] Blood Pressure Mean [Sitting (for 1 minute prior to obtaining)] Blood Pressure Mean [Standing (for 1 minute prior to obtaining)] Pulse Ox 98 96 96 Oxygen Delivery Method Room Air Room Air 12/07/24 15:00 Temperature Temperature Source Pulse Rate 78 Pulse Rate [Lying] Pulse Rate [Sitting (for 1 minute prior to obtaining)] Pulse Rate [Standing (for 1 minute prior to obtaining)] Respiratory Rate Respiratory Effort Respiratory Pattern Blood Pressure 131/72 H Blood Pressure [Lying] Blood Pressure [Sitting (for 1 minute prior to obtaining)] Blood Pressure [Standing (for 1 minute prior to obtaining)] Blood Pressure Mean 91 Blood Pressure Mean [Lying] Blood Pressure Mean [Sitting (for 1 minute prior to obtaining)] Blood Pressure Mean [Standing (for 1 minute prior to obtaining)] Pulse Ox 98 Oxygen Delivery Method Room Air Positive well nourished and well developed Constitutional Narrative: Patient appears pale. She is thin. She appears in no obvious distress. General Appearance ED: well developed and pallor HEENT Reports moist mucous membranes HEENT Narrative: Head is atraumatic normocephalic. Ears normal. Posterior pharynx is normal Eyes PERRL and EOMs intact bilaterally Eyes Narrative: Conjunctive is slightly pale. There is slight pink noted. General Eye ED: Negative for scleral icterus Neck no lymphadenopathy, supple and no JVD Chest Wall inspection of chest normal and palpation of chest normal Resp normal respiratory effort and clear to auscultation bilaterally Cardio regular rate, regular rhythm, S1 normal heart sound, S2 normal heart sound and no murmurs GI non-distended and no masses; Negative for non-tender GI Narrative: Patient has diffuse tenderness. I do not appreciate hepatosplenomegaly. There is no guarding or peritoneal findings. Inspection: Negative for abdominal distention Auscultation: hypoactive bowel sounds Palpation: soft Back/Spine no CVA tenderness Extremity General Extremety ED: Yes edema General Extremity: edema Neuro oriented x3 and CN's II-XII intact bilaterally Sensorium / Orientation: alert Psych Mood & Affect: depressed Skin no rashes or lesions noted, no wounds and No skin turgor normal General Skin Exam: pallor; Negative for jaundice MDM MDM MDM Narrative Medical decision making narrative: Differential diagnosis is abdominal pain of unknown etiology, malignancy, she does have portal hypotension. Clinically she does not have ascites. Clinicallyshe appears anemic. Will obtain CBC to assess H&H as well as white count. Competence of metabolic panel to assess liver enzymes and electrolytes as well as renal function. Show she had elevated inflammatory markers will obtain and compare to prior. History & Record Review Additional record(s) reviewed:: Prior labs Lab Data Attestation: I reviewed the patient's lab results. Lab results narrative: CBC reveals normocytic anemia with an H&H of 9.4 and 30.5 which is slightly lower than what wasnoted November. Comprehensive metabolic panel reveals slight elevation of BUN and creatinine of 28and 1.25 with an estimated GFR 47. This is an improvement from prior. BUN to creatinine ratio slight elevated 22-1. AST and ALT are elevated respectively at 121 and 99. C-reactive proteins elevated and essentially baseline for her. Labs: Laboratory Results - last 24 hr 12/07/24 13:05 WBC 4.6 RBC 3.14 L Hgb 9.4 L Hct 30.5 L MCV 97.1 MCH 29.9 MCHC 30.8 L RDW Std Deviation 59.6 H RDW Coeff of Jeffery 17.1 H Plt Count 88 L MPV 10.7 Immature Gran % (Auto) 0.700 Neut % (Auto) 63.7 Lymph % (Auto) 17.7 L [place] % (Auto) 15.3 H Eos % (Auto) 1.1 Baso % (Auto) 1.5 H Absolute Neuts (auto) 2.9 Absolute Lymphs (auto) 0.81 L Nucleated RBC % 0 Platelet Estimate MOD DEC ESR 8 PT 13.5 INR 1.0 Sodium 142 Potassium 3.9 Chloride 101 Carbon Dioxide 25.6 Anion Gap 15 BUN 28 H Creatinine 1.25 H Estim Creat Clear Calc 1.68 L* Est GFR (MDRD) Non-Af 47 L BUN/Creatinine Ratio 22.6 H Glucose 90 Calcium 10.6 Total Bilirubin 0.73 AST 121 H ALT 99 H Alkaline Phosphatase 189 H C-React Prot Ext Range 56.00 H Total Protein 6.3 Albumin 3.4 Globulin 2.9 Albumin/Globulin Ratio 1.2 Treatment and Re-Evaluation :: Patient was informed since her BUN/creatinine have improved, there is no significant change in her H&H and she is hemodynamically stable her workup can be done as an outpatient and she should keep her scheduled appointment for MRI and depending on results will need referral to hematology oncology or GI versus general surgery. Patient thought she was going to be seen by hematology in the emergency department. Patient was informed since her labs are not not significant changed she does not meet criteria for admission and that her workupcan be completed as an outpatient and that that her practitioner can make appropriate arrangements pending results of MRI. Discharge Plan Triage Chief Complaint: Fatigue ED Provider: Crispin Subramanian Dx/Rx/DC Orders Clinical Impression: Abdominal pain of unknown cause, Chronic renal insufficiency, Anemia, Acute prerenal azotemia, Elevated liver enzymes, Unintentional weight loss of 5% body weight or less within 1 month, Night sweats, Hypertension, Hypertension, portal,Lymphedema of both lower extremities Instructions: ED Abdominal Pain Unkn Cause Fem Prescriptions: No Action vitamin B complex Tablet 1 tab PO QDAY lisinopril-hydrochlorothiazide 10-12.5 mg tablet 1 tab PO QDAY cholecalciferol (vitamin D3) 1,250 mcg (50,000 unit) capsule 1,250 mcg PO QMONTH pantoprazole 40 mg tablet,delayed release (DR/EC) 40 mg PO DAILY mv-mn [id number] [Centrum ] 1 tab PO DAILY Primary Care Provider: Ranjith Ling NP Referrals: Ranjith Ling NP, HOSPITAL PHARMACIST-C [Primary Care Provider, Family Practice] - 1-2 Weeks Activity Restrictions/Additional Instructions: Keep appointment for outpatient MRI. Print Language: Nauruan Disposition Disposition: Home, Self Care Discharge Date/Time: 12/07/24 15:05 What to do if you have Problems For any increased pain, shortness of breath, bleeding, nausea or vomiting, chestpain, or any unexpected problems, contact your Primary Care Provider. Call [facility] ([phone]) or report tothe closest Emergency Room. Call 911 if necessary. 12/07/24 1525 Cosigner Signature (if applicable): CC: DAVID Ling ~ Signed [facility]10-06-2025 Discharge summary Author Crispin Subramanian [facility] Note Date/Time December 07, 2024 3: 05pm [facility] Medical Records Department [address] [place] [address] Emergency Department Summary 12/07/24 MR#: [id number] Acct: [id number] Name: ESTELLA CHAO Rep #:[id number] : [id number] From: Crispin Subramanian MD PCP: DAVID Butler tus:DEP ER Location: ED HPI History of Present Illness Chief Complaint: Fatigue Detail of Chief Complaint: Patient sent in for fatigue, weight loss, worsening renal function, abdomin Informant: patient Onset/Context/Timing Onset: Month(s) Context: Gradual Onset Timing: Intermittent and Waxes and wanes Quality: Abdominal distention, discomfort, and multiple other symptoms Location: Multiple Current Severity: Mild Maximum Severity: Moderate Worsened by: Nothing Relieved by: Nothing Associated Symptoms Associated Symptoms: HPI narrative Narrative Narrative: Patient is a 68-year-old woman. She has history of weight loss, night sweats, abdominal distention, portal hypertension, bilateral edema, stage IV kidney disease and left renal renal stone. She was sent in for her pain. [facility] was [facility]. Patient is scheduled for an MRI this coming Saturday. Patient stated she was told she did have a hematology consult. There was a note attached to her chart. Apparently she was seen 2 weeks ago and therewas concern for T-cell l lymphoma. Patient had unintentional weight loss. She complains of fatigue, abdominal bloating. She denies change in color, consistency or caliber of her stool. She denies frequency of bowel movements. She denies urologic symptoms. She denies dark- colored urine. She denies bone pain. She does not report night sweats. She denies headache, visual, ocular auditory symptoms. She has trouble with speech or swallowing. She denies chest pain, pressure, tightness or heaviness. She denies dyspnea or [place] exertion. Denies orthopnea or PND. She does report swelling of her ankles recently. Patient has no history of alcohol use or cirrhosis. Prior similar symptoms: Yes Recent Illness/Hospitalization: Yes (Seen by PCP approximately 2 weeks ago. Hercreatinine at that time was ely) [facility] Medical History Depression Emphysema lung COPD (chronic obstructive pulmonary disease) Postmenopausal Lymph node enlargement IBS (irritable bowel syndrome) Positive colorectal cancer screening using Cologuard test Anemia Acute distention of stomach Abdominal pain Celiac disease Hypertension Vitamin D deficiency Splenomegaly Home Medications ?Medication ?Instructions ?Recorded ?Last Taken ?Type cholecalciferol (vitamin D3) 1,250 1,250 mcg PO QMONTH [facility] 11/26/24 11/25/24 History mcg (50,000 unit) capsule lisinopril 10 1 tab PO QDAY BLOOD PRESSURE 11/26/24 12/07/24 History mg-hydrochlorothiazide 12.5 mg tablet vitamin B complex 1 tab PO QDAY FOR ENERGY 12/06/24 History [id number] 1 tab PO DAILY SUPPLEMEN T 12/07/24 12/06/24 History pantoprazole 40 mg tablet,delayed 40 mg PO DAILY STOMA CH 12/07/24 12/06/24 History release Allergy/AdvReac Type Severity Reaction Status Date / Time moxifloxacin (From Avelox) Allergy Unknown unknown Verified 12/07/24 12:37 terbinafine Allergy Unknown rash Verified 12/07/24 12:37 Family History Father Alcohol abuse Mother Heart disease Depression Social History Smoking Status: Current every day smoker tobacco type: cigarettes alcohol intake: never ROS ROS ED Constitutional Constitutional ED: Reports sweats and weight loss; Denies chills, fever(s) or subjective Eyes Eyes: Denies blurry vision, change in vision or diplopia ENT ENT ED: Denies ear pain, rhinorrhea or sore throat Cardiovascular Cardiovascular: Denies chest pain, orthopnea, palpitations, paroxysmal nocturnaldyspnea or racing heartbeat Respiratory/Chest Respiratory/Chest: Reports cough and other Details: Patient is 1/4 pack/day smoker. She does and Dors nonproductive cough. ; Denies dyspnea, dyspnea on exertion, orthopnea, paroxysmal nocturnal dyspnea or sputum Gastrointestinal Gastrointestinal: Reports abdominal pain; Denies constipation, diarrhea, melena,nausea or vomiting Genitourinary Genitourinary ED: Denies dysuria, hematuria or urinary frequency Musculoskeletal Musculoskeletal: Denies arthralgias, back pain, myalgias or neck pain Integumentary Denies rash Neurologic Neurologic: Reports weakness; Denies headache(s) or paresthesias Endocrine Endocrinology: Denies cold intolerance or heat intolerance Hematologic/Lymphatic Hematologic/Lymphatic: Reports systems reviewed and no addt'l complaints, exceptas documented EXAM Physical Exam Const Vital Signs: 12/07/24 12:37 12/07/24 12:47 12/07/24 13:14 Temperature 97 F L Temperature Source Temporal Pulse Rate 101 H Pulse Rate [Lying] 93 Pulse Rate [Sitting (for 1 minute prior to obtaining)] 99 Pulse Rate [Standing (for 1 minute prior to obtaining)] 99 Respiratory Rate 18 Respiratory Effort Normal Non-Labored Respiratory Pattern Normal Blood Pressure 126/78 H Blood Pressure [Lying] 130/70 H Blood Pressure [Sitting (for 1 minute prior to obtaining)] 120/72 Blood Pressure [Standing (for 1 minute prior to obtaining)] 123/73 H Blood Pressure Mean 94 Blood Pressure Mean [Lying] 90 Blood Pressure Mean [Sitting (for 1 minute prior to obtaining)] 88 Blood Pressure Mean [Standing (for 1 minute prior to obtaining)] 89 Pulse Ox 98 Oxygen Delivery Method Room Air 12/07/24 13:37 12/07/24 14:00 12/07/24 14:39 Temperature 97 F L Temperature Source Pulse Rate 91 93 93 Pulse Rate [Lying] Pulse Rate [Sitting (for 1 minute prior to obtaining)] Pulse Rate [Standing (for 1 minute prior to obtaining)] Respiratory Rate 15 24 H 24 H Respiratory Effort Respiratory Pattern Blood Pressure 127/68 H 127/68 H 127/68 H Blood Pressure [Lying] Blood Pressure [Sitting (for 1 minute prior to obtaining)] Blood Pressure [Standing (for 1 minute prior to obtaining)] Blood Pressure Mean 87 87 87 Blood Pressure Mean [Lying] Blood Pressure Mean [Sitting (for 1 minute prior to obtaining)] Blood Pressure Mean [Standing (for 1 minute prior to obtaining)] Pulse Ox 98 96 96 Oxygen Delivery Method Room Air Room Air 12/07/24 15:00 Temperature Temperature Source Pulse Rate 78 Pulse Rate [Lying] Pulse Rate [Sitting (for 1 minute prior to obtaining)] Pulse Rate [Standing (for 1 minute prior to obtaining)] Respiratory Rate Respiratory Effort Respiratory Pattern Blood Pressure 131/72 H Blood Pressure [Lying] Blood Pressure [Sitting (for 1 minute prior to obtaining)] Blood Pressure [Standing (for 1 minute prior to obtaining)] Blood Pressure Mean 91 Blood Pressure Mean [Lying] Blood Pressure Mean [Sitting (for 1 minute prior to obtaining)] Blood Pressure Mean [Standing (for 1 minute prior to obtaining)] Pulse Ox 98 Oxygen Delivery Method Room Air Positive well nourished and well developed Constitutional Narrative: Patient appears pale. She is thin. She appears in no obvious distress. General Appearance ED: well developed and pallor HEENT Reports moist mucous membranes HEENT Narrative: Head is atraumatic normocephalic. Ears normal. Posterior pharynx is normal Eyes PERRL and EOMs intact bilaterally Eyes Narrative: Conjunctive is slightly pale. There is slight pink noted. General Eye ED: Negative for scleral icterus Neck no lymphadenopathy, supple and no JVD Chest Wall inspection of chest normal and palpation of chest normal Resp normal respiratory effort and clear to auscultation bilaterally Cardio regular rate, regular rhythm, S1 normal heart sound, S2 normal heart sound and no murmurs GI non-distended and no masses; Negative for non-tender GI Narrative: Patient has diffuse tenderness. I do not appreciate hepatosplenomegaly. There is no guarding or peritoneal findings. Inspection: Negative for abdominal distention Auscultation: hypoactive bowel sounds Palpation: soft Back/Spine no CVA tenderness Extremity General Extremety ED: Yes edema General Extremity: edema Neuro oriented x3 and CN's II-XII intact bilaterally Sensorium / Orientation: alert Psych Mood & Affect: depressed Skin no rashes or lesions noted, no wounds and No skin turgor normal General Skin Exam: pallor; Negative for jaundice MDM MDM MDM Narrative Medical decision making narrative: Differential diagnosis is abdominal pain of unknown etiology, malignancy, she does have portal hypotension. Clinically she does not have ascites. Clinicallyshe appears anemic. Will obtain CBC to assess H&H as well as white count. Competence of metabolic panel to assess liver enzymes and electrolytes as well as renal function. Show she had elevated inflammatory markers will obtain and compare to prior. History & Record Review Additional record(s) reviewed:: Prior labs Lab Data Attestation: I reviewed the patient's lab results. Lab results narrative: CBC reveals normocytic anemia with an H&H of 9.4 and 30.5 which is slightly lower than what was noted November. Comprehensive metabolic panel reveals slight elevation of BUN and creatinine of 28 and 1.25 with an estimated GFR 47. This is an improvement from prior. BUN to creatinine ratio slight elevated 22-1. AST and ALT are elevated respectively at 121 and 99. C-reactive proteins elevated and essentially baseline for her. Labs: Laboratory Results - last 24 hr 12/07/24 13:05 WBC 4.6 RBC 3.14 L Hgb 9.4 L Hct 30.5 L MCV 97.1 MCH 29.9 MCHC 30.8 L RDW Std Deviation 59.6 H RDW Coeff of Jeffery 17.1 H Plt Count 88 L MPV 10.7 Immature Gran % (Auto) 0.700 Neut % (Auto) 63.7 Lymph % (Auto) 17.7 L [place] % (Auto) 15.3 H Eos % (Auto) 1.1 Baso % (Auto) 1.5 H Absolute Neuts (auto) 2.9 Absolute Lymphs (auto) 0.81 L Nucleated RBC % 0 Platelet Estimate MOD DEC ESR 8 PT 13.5 INR 1.0 Sodium 142 Potassium 3.9 Chloride 101 Carbon Dioxide 25.6 Anion Gap 15 BUN 28 H Creatinine 1.25 H Estim Creat Clear Calc 1.68 L* Est GFR (MDRD) Non-Af 47 L BUN/Creatinine Ratio 22.6 H Glucose 90 Calcium 10.6 Total Bilirubin 0.73 AST 121 H ALT 99 H Alkaline Phosphatase 189 H C-React Prot Ext Range 56.00 H Total Protein 6.3 Albumin 3.4 Globulin 2.9 Albumin/Globulin Ratio 1.2 Treatment and Re-Evaluation :: Patient was informed since her BUN/creatinine have improved, there is no significant change in her H&H and she is hemodynamically stable her workup can be done as an outpatient and she should keep her scheduled appointment for MRI and depending on results will need referral to hematology oncology or GI versus general surgery. Patient thought she was going to be seen by hematology in the emergency department. Patient was informed since her labs are not not significant changed she does not meet criteria for admission and that her workupcan be completed as an outpatient and that that her practitioner can make appropriate arrangements pending results of MRI. Discharge Plan Triage Chief Complaint: Fatigue ED Provider: Crispin Subramanian Dx/Rx/DC Orders Clinical Impression: Abdominal pain of unknown cause, Chronic renal insufficiency, Anemia, Acute prerenal azotemia, Elevated liver enzymes, Unintentional weight loss of 5% body weight or less within 1 month, Night sweats, Hypertension, Hypertension, portal,Lymphedema of both lower extremities Instructions: ED Abdominal Pain Unkn Cause Fem Prescriptions: No Action vitamin B complex Tablet 1 tab PO QDAY lisinopril-hydrochlorothiazide 10-12.5 mg tablet 1 tab PO QDAY cholecalciferol (vitamin D3) 1,250 mcg (50,000 unit) capsule 1,250 mcg PO QMONTH pantoprazole 40 mg tablet,delayed release (DR/EC) 40 mg PO DAILY -ga [id number] [Centrum ] 1 tab PO DAILY Primary Care Provider: Ranjith Ling NP Referrals: Ranjith Ling NP, HOSPITAL PHARMACIST-C [Primary Care Provider, Family Practice] - 1-2 Weeks Activity Restrictions/Additional Instructions: Keep appointment for outpatient MRI. Print Language: Nauruan Disposition Disposition: Home, Self Care Discharge Date/Time: 12/07/24 15:05 What to do if you have Problems For any increased pain, shortness of breath, bleeding, nausea or vomiting, chestpain, or any unexpected problems, contact your Primary Care Provider. Call [facility] ([phone]) or report to the closest Emergency Room. Call 911 if necessary. 12/07/24 1525 <Electronically signed by Crispin Subramanian MD> Cosigner Signature (if applicable): CC: DAVID Ling ~ Signed [facility] Work Phone: [phone]) 477-560809-23-2025 Evaluation + Plan note Diagnostic Tests Pending * Gliadin Antibody 11/24/24 * HEMAL Panel 11/24/24 * Tissue Transglutaminase Ab (IGA) 11/24/24 * Helicobacter Pylori Antibody 11/24/24 * B-1-[id number] 11/24/24 * TENZIN by IFA Screen 11/24/24 Future Scheduled Tests Laboratory* Urine Culture 11/24/24 * Complete Blood Count 11/26/24 * Lipid Profile 05/14/24 * Vitamin D Level 05/14/24 * Complete Metabolic Panel 05/14/24 * Complete Metabolic Panel 11/26/24 Radiology* MA Mammo Screening Bilateral w/ Yoshi 05/26/24 * BD Bone Density DEXA Axial Skeleton Adult (21 yrs or older) 05/26/24 * CT Abdomen and Pelvis w/ contrast 07/07/24 * MRI Liver 11/24/24 [facility] 09-23-2025 Evaluation + Plan note Future Scheduled Tests Laboratory* Urine Culture 11/24/24 * Complete Blood Count 11/26/24 * Lipid Profile 05/14/24 * Vitamin D Level 05/14/24 * Complete Metabolic Panel 05/14/24 * Complete Metabolic Panel 11/26/24 Radiology* MA Mammo Screening Bilateral w/ Yoshi 05/26/24 * BD Bone Density DEXA Axial Skeleton Adult (21 yrs or older) 05/26/24 * CT Abdomen and Pelvis w/ contrast 07/07/24 * MRI Liver 11/24/24 [facility] 06-23-2025 Telephone encounter Note* Telephone Encounter - Cammie Bay LPN - 08/24/2024 11:22 AM EDT Patient returned call and went over results, notes from express care provider with understanding. [facility]06-23-2025 Miscellaneous Notes* Telephone Encounter - Cammie Bay LPN - 08/24/2024 11:22 AM EDT Patient returned call and went over results, notes from express care provider with understanding. * Telephone Encounter - Keyona Adams MA - 08/24/2024 7:39 AM EDT Left message for patient to return call. Keyona Adams MA * Telephone Encounter - Sole Villa APRN.CNP - 08/24/2024 7:07 AM EDT Urine culture reveals mixed bacteria. This can occur during collection when skin contaminants are in the container. Recommend patient provide new specimen (order has been placed) Present to express care as nurse visit for a new urine sample Follow up with PCP Please [facility] encounter Note * Telephone Encounter - Keyona Adams MA - 08/24/2024 7:39 AM EDT Left message for patient to return call. Keyona Adams MA [facility]06-23-2025 Telephone encounter Note* Telephone Encounter - Sole Villa APRN.CNP - 08/24/2024 7:07 AM EDT Urine culture reveals mixed bacteria. This can occur during collection when skin contaminants are in the container. Recommend patient provide new specimen (order has been placed) Present to express care as nurse visit for a new urine sample Follow up with PCP Please advise [facility]06-21-2025 Instructions* Patient Instructions* To Alcaraz APRN.CNP - 08/22/2024 2:12 PM EDT ASSESSMENT/PLAN: 1. UTI symptoms - ICD9: 788.99, ICD10: R39.9 (primary diagnosis) - UA DIP, URINE (POC)- positive for leukocytes, will start antibiotic for possible UTI - BACTERIAL CULTURE, URINE- Will call if any changes needed in antibiotic - NITROFURANTOIN MONOHYDRATE & MACROCRYSTAL 100 MG ORAL CAP 2. Acute left flank pain - ICD9: 789.09, 338.19, ICD10: R10.9 - Increase fiber in diet - Morris low residue diet - IBUPROFEN 400 MG TABLET - follow up with PCP if not improving, continue plan for CT scan this week To Alcaraz APRN.CNP -I have reviewed and updated with the patient: allergies, VS, current medications, Past Medical History,Past Surgical History,Past Family Medical History, Past Social History. - Patient education provided today - Discussed with patient medications that are indicated and how to use the medications and what thepotential side effects are. - Warning signs of worsening condition explained to patient -Instructed to follow up with PCP if symptoms not improving in next 2-3 days - Patient left in stable condition after questions answered and patient verbalizes understanding - Instructed to go to Emergency Department right away with any severe worsening chest pain, shortness of breath, headache, dizziness, weakness, numbness,leg swelling , tingling, problems walking or speaking or any other concerning symptoms documented [facility] NoteHNO ID: [id number] Author: TO ALCARAZ APRN.CNP Service: ? Author Type: Nurse Practitioner Type: Progress Notes Filed: 08/22/2024 14:21 Note Text: [facility] Subjective Kerry Chao is a 68 year old female c/o left lower flank and abdomen pain in last 2 weeks, burning and tingling at times, no tenderness or swelling, has CT scan this week for bloating after eating, decreased urination Patient presents with: Abdominal Pain: left side abdominal back migrating into mid back x 1 week The history is provided by the patient. Abdominal Pain This is a new problem. The problem occurs daily. The problem has not changed since onset.The pain is located in the LLQ. The quality of the pain is burning. The pain is moderate. Associated symptoms include arthralgias. Pertinent negatives include anorexia, fever, belching, diarrhea, flatus, hematochezia, melena, nausea, vomiting, constipation, dysuria, frequency, hematuria, headaches and myalgias. Nothing relieves the symptoms. Review of Systems Constitutional: Negative for chills, fatigue and fever. HENT: Negative. Eyes: Negative. Respiratory: Negative for cough and shortness of breath. Cardiovascular: Negative. Gastrointestinal: Positive for abdominal pain. Negative for anorexia, constipation, diarrhea, flatus, hematochezia, melena, nausea and vomiting. Genitourinary: Positive for decreased urine volume and flank pain. Negative for difficulty urinating, dysuria, frequency, hematuria and urgency. Musculoskeletal: Positive for arthralgias. Negative for myalgias. Skin: Negative. Neurological: Negative for headaches. Objective BP 122/68 Pulse 94 Temp 37.2 ?C (98.9 ?F) Resp 16 Wt 48.7 kg (107 lb 5.8 oz) SpO2 95% Physical Exam Vitals and nursing note reviewed. Constitutional: Appearance: Normal appearance. Cardiovascular: Rate and Rhythm: Regular rhythm. Heart sounds: Normal heart sounds. Pulmonary: Effort: Pulmonary effort is normal. Breath sounds: Normal breath sounds. Abdominal: General: There is no distension. Palpations: There is no mass. Tenderness: There is no abdominal tenderness. There is no right CVA tenderness, left CVA tenderness, guarding or rebound. Hernia: No hernia is present. Skin: General: Skin is dry. Neurological: General: No focal deficit present. Mental Status: She is alert and oriented to person, place, and time. {ASSESSMENT/PLAN: 1. UTI symptoms - ICD9: 788.99, ICD10: R39.9 - - UA DIP, URINE (POC)- positive for armani/ket/ and leukocytes, suspect UTI - BACTERIAL CULTURE, URINE - Will call if any changes needed in antibiotic - follow up with PCP if not improving with treatment in next week - supportive care with rest, hydration and OTC antipyretics such as motrin or tylenol for minor aches - go to ER if pain severe or uncontrollable To Alcaraz APRN.DIRECTOR MUSIC -I have reviewed and updated with the patient: allergies, VS, current medications, Past Medical History,Past Surgical History,Past Family Medical History, Past Social History. - Patient education provided today - Discussed with patient medications that are indicated and how to use the medications and what the potential side effects are. - Warning signs of worsening condition explained to patient -Instructed to follow up with PCP if symptoms not improving in next 2-3 days - Patient left in stable condition after questions answered and patient verbalizes understanding - Instructed to go to Emergency Department right away with any severe worsening chest pain, shortness of breath, headache, dizziness, weakness, numbness,leg swelling , tingling, problems walking or speaking or any other concerning symptoms Differential Diagnoses - UTI is more likely for the following reason(s): consistent with laboratory studies and suggested by HANDP - kidney stone is less likely for the following reason(s): HANDP not suggestive Disposition The patient was discharged. OTC Medications were advised:[facility]06-21-2025 History of Present illness Narrative* To Alcaraz APRN.PEDRO - 08/22/2024 2:02 PM EDT [facility] Subjective Kerry Chao is a 68 year old female c/o left lower flank and abdomen pain in last 2 weeks, burning and tingling at times, no tenderness or swelling, has CT scan this week for bloating after eating, decreased urination Patient presents with: Abdominal Pain: left side abdominal back migrating into mid back x 1 week The history is provided by the patient. Abdominal Pain This is a new problem. The problem occurs daily. The problem has not changed since onset.The pain is located in the LLQ. The quality of the pain is burning. The pain is moderate. Associated symptoms include arthralgias. Pertinent negatives include anorexia, fever, belching, diarrhea, flatus, hematochezia, melena, nausea, vomiting, constipation, dysuria, frequency, hematuria, headaches and myalgias. Nothing relieves the symptoms. Review of Systems Constitutional: Negative for chills, fatigue and fever. HENT: Negative. Eyes: Negative. Respiratory: Negative for cough and shortness of breath. Cardiovascular: Negative. Gastrointestinal: Positive for abdominal pain. Negative for anorexia, constipation, diarrhea, flatus, hematochezia, melena, nausea and vomiting. Genitourinary: Positive for decreased urine volume and flank pain. Negative for difficulty urinating, dysuria, frequency, hematuria and urgency. Musculoskeletal: Positive for arthralgias. Negative for myalgias. Skin: Negative. Neurological: Negative for headaches. Objective BP 122/68 Pulse 94 Temp 37.2 C (98.9 F) Resp 16 Wt 48.7 kg (107 lb 5.8 oz) SpO2 95% Physical Exam Vitals and nursing note reviewed. Constitutional: Appearance: Normal appearance. Cardiovascular: Rate and Rhythm: Regular rhythm. Heart sounds: Normal heart sounds. Pulmonary: Effort: Pulmonary effort is normal. Breath sounds: Normal breath sounds. Abdominal: General: There is no distension. Palpations: There is no mass. Tenderness: There is no abdominal tenderness. There is no right CVA tenderness, left CVA tenderness, guarding or rebound. Hernia: No hernia is present. Skin: General: Skin is dry. Neurological: General: No focal deficit present. Mental Status: She is alert and oriented to person, place, and time. {ASSESSMENT/PLAN: 1. UTI symptoms - ICD9: 788.99, ICD10: R39.9 - - UA DIP, URINE (POC)- positive for armani/ket/ and leukocytes, suspect UTI - BACTERIAL CULTURE, URINE - Will call if any changes needed in antibiotic - follow up with PCP if not improving with treatment in next week - supportive care with rest, hydration and OTC antipyretics such as motrin or tylenol for minor aches - go to ER if pain severe or uncontrollable To Alcaraz APRN.CNP -I have reviewed and updated with the patient: allergies, VS, current medications, Past Medical History,Past Surgical History,Past Family Medical History, Past Social History. - Patient education provided today - Discussed with patient medications that are indicated and how to use the medications and what thepotential side effects are. - Warning signs of worsening condition explained to patient -Instructed to follow up with PCP if symptoms not improving in next 2-3 days - Patient left in stable condition after questions answered and patient verbalizes understanding - Instructed to go to Emergency Department right away with any severe worsening chest pain, shortness of breath, headache, dizziness, weakness, numbness,leg swelling , tingling, problems walking or speaking or any other concerning symptoms Differential Diagnoses - UTI is more likely for the following reason(s): consistent with laboratory studies and suggested by H&P - kidney stone is less likely for the following reason(s): H&P not suggestive Disposition The patient was discharged. OTC Medications were advised: [facility] Discharge instructions Patient Education 08/30/2023 15:26:55 Preventing Trips on the Job Preventing Trips on the Job Trips are usually caused by taking shortcuts, poor lighting, clutter in work areas, and loose footing. They often happen when you're in a campbell. You can prevent trips by thinking about where you are and where you're going. Watch for hazards Shortcuts. The more shortcuts you take, the greater the chance of tripping. Going off a walkway andcutting through a lawn or driveway to save time may cause you to trip. Carrying a load too big to see over and rushing are also common causes of trips. Lighting and clutter hazards. You need proper lighting to maintain your balance and see ahead. Common lighting and clutter hazards include leaving the lights off and forgetting to replace burned-out bulbs. Leaving tools, boxes, or other items loose in your work area increases your chances of tripping over something. Don't take shortcuts The time a shortcut may save isn't worth an injury. To safely complete your tasks: Take the pathway provided for pedestrians. Make sure you can see where you're going. Carry only loads that you can see over. Slow down. Keep work areas well lit and clean Your eyes can be your best tool against potential hazards. Be sure to: Turn on the lights every time you enter a room. Replace light bulbs when they burn out. Replace damaged fixtures and cords. Keep all work areas and walkways clear and uncluttered. 3934-1883 [employer]. [address] [place] [address], [place] [address]. All rights reserved. This information is not intended as a substitute for professional medical care. Always follow yourhealthcare professional's instructions. Follow Up Care 08/30/2023 13:35:25 With:KONG TRIANA Address: [facility] [place] [address]- When:2-4 days With:RANJITH LING APRN - DIRECTOR MUSIC Address: [address] [place] [id number]- When:2-4 days [facility] 06-28-2024 Note Discharge Instructions Thank you for allowing [facility] to assist you with your healthcare needs. The following is importantdischarge information regarding your hospital visit. Diagnosis from Today's Visit Fall What to Do Next Instructions from Your Care Team No qualifying data available. Post Acute Orders No qualifying data available. You Need to Schedule the Following Appointments Follow Up with KONG TRIANA When:Within 2-4 days Where:[facility] [place] [address]- Follow Up with RANJITH LING CLEANING LABORER - DIRECTOR MUSIC When:Within 2-4 days Where:[address] [place] [id number]- Allergies Avelox terbinafine Fatigue, Fever, Rash Immunizations This Visit Given Vaccine Datetetanus/diphth/pertuss (Tdap) adult/adol 08/30/2023 Medications Please ask your primary doctor or pharmacist before taking any other medication not listed, including over the counter drugs, herbal medications, vitamins and or supplements as they may interact withyour home medications. What How Much When Why Instructions Last Dose Unchanged cholecalciferol (cholecalciferol 1250 mcg (50,000 intl units) oral capsule) 1 cap by mouth Once a month Vitamin D deficiency Duration: 90 Days Unchanged hydrochlorothiazide-lisinopril (hydrochlorothiazide-lisinopril 12.5 mg-10 mg oral tablet) 1 tab(s) by mouth Once a day Please take this list to your next doctor s visit. Bring all medications you take, including over the counter medications, herbals and other supplements with you to your doctor s visit. Patients and families are reminded to discard old lists and to update any records with all medication providers or retail pharmacies. Education Materials Preventing Trips on the Job Trips are usually caused by taking shortcuts, poor lighting, clutter in work areas, and loose footing. They often happen when you're in a campbell. You can prevent trips by thinking about where you are and where you're going. Watch for hazards Shortcuts. The more shortcuts you take, the greater the chance of tripping. Going off a walkway andcutting through a lawn or driveway to save time may cause you to trip. Carrying a load too big to see over and rushing are also common causes of trips. Lighting and clutter hazards. You need proper lighting to maintain your balance and see ahead. Common lighting and clutter hazards include leaving the lights off and forgetting to replace burned-out bulbs. Leaving tools, boxes, or other items loose in your work area increases your chances of tripping over something. Don't take shortcuts The time a shortcut may save isn't worth an injury. To safely complete your tasks: Take the pathway provided for pedestrians. Make sure you can see where you're going. Carry only loads that you can see over. Slow down. Keep work areas well lit and clean Your eyes can be your best tool against potential hazards. Be sure to: Turn on the lights every time you enter a room. Replace light bulbs when they burn out. Replace damaged fixtures and cords. Keep all work areas and walkways clear and uncluttered. [id number] [employer]. [address] [place] [address], [place] [address]. All rights reserved. This information is not intended as a substitute for professional medical care. Always follow yourhealthcare professional's instructions. Additional Information VACCINATE! IT SAVES LIVES! Members of the community who have not yet received the COVID-19 vaccine and would like to receive it can visit one of [facility] vaccine clinics. There are many vaccine clinic locations within the [facility]. For locations and available times, please visit www.gettheshot.coronavirus.[place].gov/. It is important to note that some COVID mobile vaccine clinics are held outdoors and may be canceled in rainy or stormy conditions. To learn more about pediatric vaccinations (ages 5-11), we invite you to visit the [employer] [employer] [facility] webpage. https://www.[facility].org/pages/4891-Hwktb-Xhgbibpganc-Lovzbcacwi-Nukpy-Cwi stions.htmlTo learn more about the COVID-19 vaccine, we invite you to visit the CDC website for a list of frequently asked questions. https://www.cdc.gov/coronavirus/2019-ncov/vaccines/faq.html [facility] Patient Portal Access Instructions: Stay connected with your healthcare team and access your personal medical information anytime with the [facility] Patient Portal. If you would like a full copy of your medical records please contact the [facility] Medical Records Department Saturday through Saturday between 8a.m. and 4:30p.m. Please follow the directions below to access the portal: 1.Access the email account you provided upon registration to the hospital.2.Look for an invitation email from [facility].3.Open the email and access the invitation link: Accept Invitation to [facility]4.Fill in the required viramontes to create your account. Sign into www.[employer] with your username and password that you created in the above steps to stay up to date. You can then view a summary of results, a summary of your visits, and the ability to download your summaries to your computer or send the information securely to a physician. Remember that your healthcare information is confidential, so carefully consider who you will allow to register on the [facility] Patient Portal for access to your information. You can also access the [facility] Patient Portal on the [employer]. Simply click on Health Records under [employer] and then click on the [employer] logo. HOW TO SAFELY DISPOSE OF PRESCRIPTION MEDICATIONS Please use one of the following methods to safely dispose of your unused medications. 1.Use a drug disposal kit: the drug disposal pouch allows you to safely discard your old and unuseddrugs. Ask your nurse to give you one when you are discharged.2.Visit a local take-back location: Many local pharmacies and police departments have programs that collect old and unwanted prescriptiondrugs. Call your local pharmacy or go to http://[employer]/0C8Ie8e to find one close to you.3.Make use of household items: Use cat litter or old coffee grounds to dispose medications if other options arenot available. Mix your drugs with these household products, seal them in an airtight container andthrow it into the garbage. Call [facility]: [phone] to be sure your drugs can be disposed of in this way. Some medicines may require a different approach.4.Never flush your medications down the toilet. IF YOU HAVE BEEN PRESCRIBED AN OPIOIDS FOR PAIN If you have been prescribed an opioid (such as hydrocodone, oxycodone or morphine), it is critical to understand the possible side effects and risks of opioid pain medications. Even when taken as directed, opioids can have several side effects including: Tolerance, meaning you might need to take more of a medication for the same pain relief. Nausea, vomiting and/or constipation. Sleepiness, dizziness, dry mouth, confusion, depression or itching. Physical dependence, meaning you have withdrawal symptoms when a medication is stopped ? this can develop within a few days. KNOW YOUR RESPONSIBILITIES It is important to know exactly how much and how often to take the opioid pain medications you are prescribed. Never take opioids in higher amounts or more often than prescribed. Do not combine opioids with alcohol or other drugs that cause drowsiness, such as benzodiazepines, also known as benzos,including diazepam and alprazolam, muscle relaxants or sleep aids. Never sell or share prescriptionopioids. This is illegal. Store opioids in a secure place and out of reach of others (including children, family, friends and visitors). The last page(s) of this document has been signed and retained as a CHART COPY Signatures Patient Education Materials Preventing Trips on the Job Medication Leaflets My discharge plan and instructions have been reviewed and explained to me and I,ESTELLA CHAO understand my current condition and have read and understand these discharge instructions. I have received a written copy of the plan/instructions. If I have questions, I am aware that I should contact my doctor. Patient/Nursing Scheduler Signature: Date/Time: Relationship to Patient: Witness Name/Signature: Date/Time: [facility]06-28-2024 Note ORIGINAL EXAMINATION: CT OF THE HEAD WITHOUT CONTRAST 08/30/2023 3:03 pm TECHNIQUE: CT of the head was performed without the administration of intravenous contrast. Automated exposure control, iterative reconstruction, and/or weight based adjustment of the mA/kV was utilized to reduce the radiation dose to as low as reasonably achievable. COMPARISON: None available HISTORY: ORDERING SYSTEM PROVIDED HISTORY: Reason for Exam: fall with headstrike FINDINGS: Electromechanical Technologist (topogram) images: Unremarkable BRAIN/VENTRICLES: No evidence of acute hemorrhage, mass effect or midline shift. Olivares-white matter differentiation is well maintained. No evidence of intra-axial mass lesion or extra-axial fluid collection. The ventricular system and basal cisterns are patent and normal in morphology. Scattered white matter hypodensities are nonspecific but statistically most consistent with mild chronic microvascular angiopathy. Carotid siphon calcifications are present. ORBITS: The visualized portions of the orbits demonstrate no acute abnormality. SINUSES: The paranasal sinuses and mastoid air cells are unremarkable. SOFT TISSUE/SKULL: No acute abnormality of the visualized skull or soft tissues. ADDITIONAL FINDINGS: None. IMPRESSION: No acute intracranial abnormality. Chronic microvascular changes. I have personally reviewed the images of this examination and agree with the resident's findings and interpretation. Interpreted by: Morgan Leggett MD Preliminary Report By: Colby Calix Electronically signed By Morgan Leggett MD Dictated Date: 08/30/2023 3:05:00 PM Prelim Date: 08/30/2023 3:13:29 PM Sign Date: 08/30/2023 3:13:29 PM Ordering Provider: HEAVEN [facility]11-09-2022 Miscellaneous Notes* Telephone Encounter - Bon King RN - 01/10/2022 9:34 AM EST Patient returned call and given provider's message below with verbalized understanding. * Telephone Encounter - Keyona Adams - 01/10/2022 7:33 AM EST Left message for patient to return call. Keyona Adams * Telephone Encounter - Bonny Pena APRN.CNP - 01/10/2022 6:26 AM EST Please notify of negative covid and influenza test. Continue comfort measures for symptoms as you would for a cold. Any worsening symptoms follow up with PCP or ER. Bonny Pena APRN.CNP [facility] HCoV 229E RNA TAB+non- probe Ql (Nph)Not Detected *NA* (06/20/21 9:53 AM)AH Auto Viro/Sero SSEvaluation + Plan note Future Appointments Appointment Date:09/21/2021 10:30:00 AM Scheduled Provider: Location:[facility] Appointment Type:PC Nurse Lab Appointment Date:09/26/2021 01:40:00 PM Scheduled Provider:RANJITH LING APRN, CNP Location:[facility] Appointment Type:PC OV Follow Up Future Scheduled Tests Laboratory* Lipid Profile 09/25/21 * Vitamin D Level 09/25/21 * Complete Metabolic Panel 09/25/21 * Complete Metabolic Panel 07/24/20 Radiology* MA Mammo Screening Bilateral w/ Yoshi 03/28/21 [facility] Evaluation + Plan note Future Appointments Appointment Date:07/11/2021 01:40:00 PM Scheduled Provider:RANJITH LING APRN, CNP Location:[facility] Appointment Type:PC OV Appointment Date:09/21/2021 10:30:00 AM Scheduled Provider: Location:[facility] Appointment Type:PC Nurse Lab Appointment Date:09/26/2021 01:40:00 PM Scheduled Provider:RANJITH LING APRN, CNP Location:[facility] Appointment Type:PC OV Follow Up Future Scheduled Tests Laboratory* C-Reactive Protein 07/04/21 * Complete Blood Count 07/04/21 * Lipid Profile 09/25/21 * Sedimentation Rate Automated 07/04/21 * Vitamin D Level 09/25/21 * Complete Metabolic Panel 07/04/21 * Complete Metabolic Panel 09/25/21 * Complete Metabolic Panel 07/24/20 Radiology* MA Mammo Screening Bilateral w/ Yoshi 03/28/21 * XR Chest 2 Views (PA & Lateral) 07/04/21 [facility] [employer] Corporationaluation + Plan note Future Appointments Appointment Date:10/22/2023 01:20:00 PM Scheduled Provider:RANJITH LING APRN, CNP Location:[facility] Appointment Type: Wellness Annual Future Scheduled Tests Laboratory* A1C Hemoglobin 10/22/23 * Complete Blood Count 10/22/23 * Complete Blood Count 03/21/23 * Lipid Profile 10/22/23 * Albumin/Creatinine Ratio, Random Urine 10/22/23 * Albumin/Creatinine Ratio, Random Urine 03/21/23 * Vitamin D Level 10/22/23 * Vitamin D Level 03/21/23 * Complete Metabolic Panel 10/22/23 * Complete Metabolic Panel 03/21/23 Radiology* CT Low Dose Lung Cancer Screening (LDCT) 10/09/22 [facility] Evaluation + Plan note Future Appointments Appointment Date:11/26/2023 01:00:00 PM Scheduled Provider:RANJITH LING APRN, CNP Location:[facility] Appointment Type: Wellness Annual Future Scheduled Tests Laboratory* Complete Blood Count 03/21/23 * Albumin/Creatinine Ratio, Random Urine 03/21/23 * Vitamin D Level 03/21/23 * Complete Metabolic Panel 03/21/23 [facility] Evaluation + Plan note Future Appointments Appointment Date:12/17/2024 01:20:00 PM Scheduled Provider:RANJITH LING APRN, CNP Location:[facility] Appointment Type:PC OV Future Scheduled Tests Laboratory* Urine Culture 11/24/24 * Complete Blood Count 11/26/24 * Lipid Profile 05/14/24 * Vitamin D Level 05/14/24 * Complete Metabolic Panel 05/14/24 * Complete Metabolic Panel 11/26/24 Radiology* MA Mammo Screening Bilateral w/ Yoshi 05/26/24 * BD Bone Density DEXA Axial Skeleton Adult (21 yrs or older) 05/26/24 * CT Abdomen and Pelvis w/ contrast 07/07/24 * MRV Abdomen 12/03/24 [facility] Evaluation note* Diagnosis Tobacco use disorder- Primary documented in this encounter [facility] note* Diagnosis UTI symptoms- Primary Other symptoms involving urinary system Acute left flank pain Abdominal pain, unspecified site [facility]* Diagnosis UTI symptoms- Primary Other symptoms involving urinary system documented in this encounter [facility] noteNo assessment information availableWMetroHealth [facility] Work Phone: Hospital course Narrative No data available for this section [facility] Hospital Discharge instructions No data available for this section [facility] Hospital Discharge instructionsAdditional Instructions Keep appointment for outpatient MRI.[facility] Work Phone: Hospital Discharge instructionsAmbulatory Orders* General Surgery Location: None Selected [facility] Work Phone: Progress note No data available for this section [facility] Reason for referral (narrative)No reason for referral information availableWMetroHealth [facility] Work Phone: Health Concerns Infection Onset Date Last Indicated Resolved Time COVID-19 Rule-Out 01/09/2022 01/09/2022 01/10/2022 3:07 AM EST Summary Purpose Family History Relationship Condition Age at Onset Recorded Date/T ramakrishna father Alcohol abuse Unknown mother Cardiac disease Unknown Depression Unknown No Family History Records Found Advance Directives No Advanced Directives Records Found Advance Directive Response Recorded Date/ Time Do you have a Healthcare Power of Utility Sales And Service Manager? No December 07, 2024 12:45pm Advance Directive Response Recorded Date/ Time Do you have a Healthcare Power of Utility Sales And Service Manager? No December 07, 2024 11:45am Chief Complaint and Reason for Visit Chief Complaint Admit Date SEE ORDER November 17, 2024 2:40pm Amb Documentation November 26, 2024 1:27pm Chief Complaint Admit Date SEE ORDER November 17, 2024 2:40pm Amb Documentation November 26, 2024 1:27pm PORTAL HTN December 07, 2024 12 :36pm Chief Complaint Admit Date SEE ORDER November 17, 2024 2:40pm Amb Documentation November 26, 2024 1:27pm PORTAL HTN December 07, 2024 12 :36pm SPLENOMEGALY December 22, 2024 2 :16pm AXILLARY LYMPH NODE BIOPSY December 29, 2024 9:52am labs December 29, 2024 1 1:00am BX LEFT GROIN LYMPH NODE December 29, 2 025 11:30am Splenomegaly, not elsewhere classified N ovember 2024 4:37pm Reason for Visit Admit Date Anemia December 22, 2024 2 :16pm Splenomegaly December 22, 2024 2 :16pm Lymphadenopathy December 22, 2024 2 :16pm Lymphadenopathy December 29, 2024 9 :52am Additional Source Comments Care Team (unrecognized sect ion and content) Mathematical Sciences Professor Relationship Specialty Start Date End Date Ranjith Ling, DIRECTOR MUSIC [address] [place] [address] PCP - General Family Medicine 01/09/22 Mathematical Sciences Professor Relationship Specialty Start Date End Date Ranjith Ling, DIRECTOR MUSIC [address] [facility] [place] [address] PCP - General Family Medicine 01/09/22 Mathematical Sciences Professor Relationship Specialty Start Date End Date Ranjith Ling, DIRECTOR MUSIC [address] [facility] [place] [address] PCP - General Family Medicine 01/09/22 Mathematical Sciences Professor Relationship Specialty Start Date End Date Ranjith Ling, PEDRO [address] [facility] [place] [address] PCP - General Family Medicine 01/09/22 Team Status: Active Member Role/Relationship Status Dates Ranjith Ling HOSPITAL PHARMACIST, HOSPITAL PHARMACIST-C Primary care physicia n Active Team Status: Inactive Member Role/Relationship Status Dates Ranjith Ling HOSPITAL PHARMACIST, HOSPITAL PHARMACIST-C Primary care physician Active Start: November 17, 2024 End: November 17, 2024 Dr. Jeronimo Perez MD Attending physician Active Start: November 17, 2024 End: November 17, 2024 Dr. Jeronimo Perez MD Referring Provider Active Start: November 17, 2024 End: November 17, 2024 Team Status: Active Member Role/Relationship Status Dates Ranjith Ling HOSPITAL PHARMACIST, HOSPITAL PHARMACIST-C Primary care physician Active Start: November 26, 2024 Allegra Hylton Attending physician Active Start: November 26, 2024 Team Status: Inactive Member Role/Relationship Status Dates Ranjith Ling HOSPITAL PHARMACIST, HOSPITAL PHARMACIST-C Primary care physician Active Start: December End: December 07, 2024 Dr. Crispin Subramanian MD Emergency Department Physician Active Start: December 07, 2024 End: December 07, 2024 Team Status: Inactive Member Role/Relationship Status Dates Ranjith Ling HOSPITAL PHARMACIST, HOSPITAL PHARMACIST-C Primary care physician Active Start: December End: December 07, 2024 Dr. Crispin Subramanian MD Attending physician Active St art: December 07, 2024 End: December 07, 2024 Dr. Crispin Subramanian MD Emergency Department Physician Active Start: December 07, 2024 End: December 07, 2024 Team Status: Inactive Member Role/Relationship Status Dates Ranjith Ling HOSPITAL PHARMACIST, HOSPITAL PHARMACIST-C Primary care physician Active Start: December 222024 End: December 22, 2024 Ranjith Ling HOSPITAL PHARMACIST, HOSPITAL PHARMACIST-C Referring Provider Active Start: December 22, 2024 End: December 22, 2024 Dr. Ten Nogueira MD Attending physician Active Start: December 22, 2024 End: December 22, 2024 Team Status: Inactive Member Role/Relationship Status Dates Ranjith Ling HOSPITAL PHARMACIST, HOSPITAL PHARMACIST-C Primary care physician Active Start: December 292024 End: December 29, 2024 Ranjith Ling HOSPITAL PHARMACIST, HOSPITAL PHARMACIST-C Referring Provider Active Start: December 29, 2024 End: December 29, 2024 Dr. Cassy Andrea MD Attending physician Active Start: December 29, 2024 End: December 29, 2024 Team Status: Active Member Role/Relationship Status Dates Ranjith Ling NP, HOSPITAL PHARMACIST-C Primary care physician Active Start: December 292024 Dr. Ten Nogueira MD Attending physician Active Start: December 29, 2024 Dr. Ten Nogueira MD Referring Provider Active Start: December 29, 2024 Team Status: Active Member Role/Relationship Status Dates Ranjith Ling NP, HOSPITAL PHARMACIST-C Primary care physician Active Start: December 292024 Dr. Cassy Andrea MD Attending physician Active Start: December 29, 2024 Dr. Cassy Andrea MD Referring Provider Active Start: December 29, 2024 Team Status: Active Member Role/Relationship Status Dates Ranjith Ling HOSPITAL PHARMACIST, HOSPITAL PHARMACIST-C Primary care physician Active Start: January 062024 Dr. Ten Nogueira MD Attending physician Active Start: January 06, 2025 Dr. Ten Nogueira MD Referring Provider Active Start: January 06, 2025 Source Comments (unrecognize d section and content) In the event this informatio n is protected by the Federal Confidentiality of Alcohol and Drug Abuse Patient Records regulations: The Federal rules restrict any use of the information to criminally investigate or prosecute any alcohol or drug abuse patient.[facility] CenterIn the event this information is protected by the Federal Confidentiality of Alcohol and Drug Abuse Patient Records regulations: The Federal rules restrict any use of the information to criminally investigate or prosecute any alcohol or drug abuse patient.[facility] CenterIn the event this information is protected by the Federal Confidentiality of Alcohol and Drug Abuse Patient Records regulations: The Federal rules restrict any use of the information to criminally investigate or prosecute any alcohol or drug abuse patient.[facility] Center[facility] the event this information is protected by the Federal Confidentiality of Alcohol and Drug Abuse Patient Records regulations: The Federal rules restrict any use of the information to criminally investigate or prosecute any alcohol or drug abuse patient.[facility] Reason for Visit (unrecogniz ed section and content) Reason Comments Results Reason Comments Abdominal Pain left side abdominal back migrating into mid back x 1 week Reason Onset Date Comments Results 08/24/2024 INFORMATION SOURCE (unrecogn ized section and content) DATE CREATED AUTHOR 09/03/2023 [facility] ([place]) DATE CREATED AUTHOR AUTHOR'S ORGANIZ ATION 08/24/2024 [facility] DATE CREATED AUTHOR AUTHOR'S ORGANIZ ATION 08/29/2024 [facility] DATE CREATED AUTHOR AUTHOR'S ORGANIZ ATION 12/21/2024 [facility] DATE CREATED AUTHOR AUTHOR'S ORGANIZ ATION 01/13/2025 [facility] Goals (unrecognized section and content) Goals may be documented in a n alternate section FOR RECORDS PERTAINING TO PATIENTS WHO ARE OR HAVE BEEN ENROLLED IN A CHEMICAL DEPENDENCY/SUBSTANCEABUSE PROGRAM, SOME INFORMATION MAY BE OMITTED. This clinical summary was aggregated from multiple sources. Caution should be exercised in using it in the provision of clinical care. This summary normalizes information from multiple sources, and as a consequence, information in this document may materially change the coding, format and clinical context of patient data. In addition, data may be omitted in some cases. CLINICAL DECISIONS SHOULD BE BASED ON THE PRIMARY CLINICAL RECORDS. [employer] provides no warranty or guarantee of the accuracy or completeness of information in this document.
[2025-01-24 17:34] LABS: Hematocrit 27.1 % (37-47); Hemoglobin 8.2 g/dL (12.0-15.0); Immature Granulocytes Count 0.030 X10^3/uL (0.0-0.0); Mean Corp Hgb Conc 30.3 g/dL (32-36); Mean Corpuscular Volume 105.4 fL (81-99); Mean Platelet Vol. 10.6 fl (6.2-12.0); NRBC Flagged by Analyzer 0 % (0-5); POSITIVE COUNT YES; POSITIVE MORPHOLOGY YES; Platelet Count 59 K/mm3 (150-450); RBC Distribution Width CV 18.0 % (11.6-14.6); RBC Distribution Width SD 69.4 fl (35.1-43.9); Red Blood Count 2.57 M/mm3 (4.2-5.4); White Blood Count 3.0 K/mm3 (4.4-11.0)
[2025-01-24 17:36] LABS: Differential Indicated SCAN CRITERIA MET
[2025-01-24 17:41] LABS: Prothrombin Time (Protime)PT. 16.2 SECONDS (11.7-14.9)
--- NOTE | 2025-01-24 17:41 | RAD_ITS ---
PROCEDURE: CHEST 1 VIEW (PORTABLE) 01/24/2025 REASON FOR EXAM: DYSPNEA WITH ACTIVITY, BILATERAL PEDAL EDEMA TECHNIQUE: Frontal view of the chest. COMPARISON: 01/2025. FINDINGS: Small to moderate bilateral pleural effusions. Superimposed atelectasis is likely. Right chest infusion port. The heart is normal in size. No acute osseous abnormalities. RAD/Chest 1 View (Portable) IMPRESSION: Pulmonary findings as above. Reading Location: [id number]
[2025-01-24 17:42] LABS: Partial Thromboplast Time 38.4 Seconds (24.1-36.2)
[2025-01-24 17:58] LABS: Anisocytosis 1+; Polychromasia 1+
--- NOTE | 2025-01-24 18:04 | EX.ED.DYSGE1 ---
HPI History of Present Illness Chief Complaint: Fatigue Detail of Chief Complaint: Patient states he is unable to move her legs. Detailed HPI narrative Onset/Context/Timing Onset: Weeks and Month(s) Context: Gradual Onset Timing: Continuous Quality: Progressive weakness and unable to care for herself Location: Resides at home Current Severity: Severe Maximum Severity: Severe Worsened by: Patient states she has no energy, she has history of mantle cell lymphoma a Relieved by: Nothing Associated Symptoms Associated Symptoms: 10 pound weight gain past week Narrative Narrative: Patient is 69-year-old woman who was recently diagnosed with mantle cell lymphoma. She sees Dr. Malcolm. She is scheduled to start chemotherapy on Saturday. She had a port recently placed. She endorses a 10 pound weight gain in the past week. Has not been very active. States it took 1 hour to put her socks on. For the last 3 days has not been able to walk with her walker. She has been bedridden. She denies fever, chills night sweats. She denies headache, visual, ocular auditory symptoms. She denies chest discomfort. She does endorse shortness of breath with minimal activity. She denies orthopnea or PND. She denies discoloration of her legs or pain in her legs. She denies abdominal pain, nausea, vomiting or diarrhea. She denies dysuria, frequency, urgency hematuria. She states because she cannot get to the restroom she is wearing adult diapers. Prior similar symptoms: No Recent Illness/Hospitalization: Yes [facility] Medical History Wears glasses Cancer History of renal disease Heartburn Gastric reflux Former smoker History of edema Hypokalemia Encounter for education 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 Depression Emphysema lung COPD (chronic obstructive pulmonary disease) Postmenopausal IBS (irritable bowel syndrome) Positive colorectal cancer screening using Cologuard test Anemia Acute distention of stomach Abdominal pain Hypertension Vitamin D deficiency Splenomegaly Home Medications ?Medication ?Instructions ?Recorded ?Last Taken ?Type cholecalciferol (vitamin D3) 1,250 1,250 mcg PO QMONTH [facility]ONE [facility]ALTH 11/26/24 01/19/25 History mcg (50,000 unit) capsule vitamin B complex 1 tab PO QDAY FOR ENERGY 11/26/24 01/19/25 History mv-mn [id number] 1 tab PO DAILY SUPPLEMENT 12/07/24 01/19/25 History pantoprazole 40 mg tablet,delayed 40 mg PO DAILY STOMACH 12/07/24 12/06/24 History release allopurinol 300 mg tablet 300 mg PO QDAY #7 tabs 01/14/25 Unknown Rx lidocaine-prilocaine 2.5 %-2.5 % 1 applic topical ONCE PRN port 01/14/25 Unknown Rx topical cream access 30 days #30 grams ondansetron 8 mg disintegrating 8 mg PO Q8H PRN nausea and 01/14/25 Unknown Rx tablet vomiting #30 tabs potassium chloride 20 mEq 20 meq PO DAILY #3 tabs 01/14/25 01/19/25 Rx tablet,extended release(part/cryst) tramadol 50 mg tablet 50 mg PO Q6H PRN pain 2 days #5 01/21/25 Unknown Rx tabs Allergy/AdvReac Type Severity Reaction Status Date / Time moxifloxacin (From Avelox) Allergy Unknown unknown Verified 01/24/25 15:27 terbinafine Allergy Unknown rash Verified 01/24/25 15:27 Family History Father Alcohol abuse Mother Heart disease Depression Surgical History History of dental surgery Social History Smoking Status: Current every day smoker tobacco type: cigarettes Tobacco: How many years used: 50 alcohol intake: never substance use type: does not use ROS ROS ED Constitutional Constitutional ED: Denies chills, fever(s), subjective, sweats or weight loss Eyes Eyes: Denies blurry vision, change in vision or diplopia ENT ENT ED: Denies ear pain, rhinorrhea or sore throat Cardiovascular Cardiovascular: Denies chest pain, orthopnea, palpitations, paroxysmal nocturnal dyspnea or racing heartbeat Respiratory/Chest Respiratory/Chest: Reports dyspnea on exertion; Denies cough, dyspnea, orthopnea or paroxysmal nocturnal dyspnea Gastrointestinal Gastrointestinal: Denies abdominal pain, melena, nausea or vomiting Genitourinary Genitourinary ED: Denies dysuria, hematuria or urinary frequency Musculoskeletal Musculoskeletal: Denies arthralgias, back pain or myalgias Integumentary Denies rash Neurologic Neurologic: Reports weakness; Denies headache(s) or paresthesias Psychiatric Psychiatric: Reports depression Hematologic/Lymphatic Hematologic/Lymphatic: Reports systems reviewed and no addt'l complaints, except as documented EXAM Physical Exam Const Vital Signs: 01/24/25 15:28 01/24/25 17:27 01/24/25 18:50 Temperature 97.8 F 98.7 F 97.9 F Temperature Source Oral Oral Pulse Rate 104 H 91 85 Respiratory Rate 18 18 32 H Blood Pressure 112/68 158/75 H Blood Pressure Mean 82 102 Pulse Ox 98 99 98 Oxygen Delivery Method Room Air Room Air 01/24/25 19:00 01/24/25 21:00 01/24/25 22:00 Temperature Temperature Source Pulse Rate 88 96 96 Respiratory Rate 16 14 19 H Blood Pressure 110/68 109/65 116/69 Blood Pressure Mean 82 79 79 Pulse Ox 97 74 97 Oxygen Delivery Method Room Air Room Air Room Air Positive well nourished and well developed Constitutional Narrative: Vital signs are marked for tachycardia. Not hypoxic or tachypneic. She appears pale. She appears ill. General Appearance ED: well developed and pallor HEENT Reports dry mucous membranes HEENT Narrative: Head is atraumatic normocephalic. Ears normal. Nares patent. Posterior pharynx without erythema or exudate. Uvula midline. No deviation of protrusion. Mouth ED: Yes dry mucous membranes Mouth: dry mucous membranes Eyes PERRL and EOMs intact bilaterally General Eye ED: Yes pale conjunctiva; Negative for scleral icterus Neck no lymphadenopathy, supple and no JVD Chest Wall inspection of chest normal and palpation of chest normal Resp normal respiratory effort and clear to auscultation bilaterally Cardio regular rate, regular rhythm, S1 normal heart sound, S2 normal heart sound and no murmurs GI normal to inspection, nondistended, normoactive bowel sounds, non-tender, non-distended and no masses; Negative for hepatosplenomegaly Back/Spine no CVA tenderness Extremity Extremity Narrative: Patient has marked pitting edema of both right and left lower extremity including the thigh. Unable to appreciate DP pulse because of the amount of edema. Neuro oriented x3, CN's II-XII intact bilaterally and no sensory deficits noted Neuro Narrative: When asked to raise her left or right leg off the bed Carrasco test indicates there was poor effort. Sensorium / Orientation: alert Psych Mood & Affect: depressed Skin no rashes or lesions noted and no wounds General Skin Exam: pallor; Negative for elasticity normal or jaundice MDM MDM MDM Narrative Medical decision making narrative: Clinically patient appears anemic and is symptomatic. Will obtain CBC to assess H&H as well as white count. BMP to assess renal function and electrolytes. Will review her oncology records since she is a poor informant. Also need to consider hypercalcemia since she has had hypercalcemia in the past due to her malignancy. History & Record Review Additional record(s) reviewed:: Prior outpatient record (Outpatient oncology note authored by Carmencita Vance was reviewed. She had a visit on the for increased abdominal distention and left lower quadrant abdominal discomfort. Most recent CAT scan was August 25, 2024. This revealed a massive splenomegaly with fatty liver bilateral inguinal lymphaden), Prior labs and Other (Patient was recently seen by Dr. Jarvis ziegler. She had a port placed. This was performed on January 21.) Lab Data Attestation: I reviewed the patient's lab results. Lab results narrative: CBC reveals neutropenia thrombocytopenia with macrocytic anemia. Prior CBC was obtained January 11. Patient's H&H at that time was 10.2 and 32.9. Indices were elevated. White count was 4.1. Platelet count was 74,000. Coags reveal slight elevation of PT and PTT of 16.2 and 38.4 with a normal INR. First troponin is elevated, 21. BNP is elevated to 2369. This may be due to right heart failure. Labs: Laboratory Results - last 24 hr 01/24/25 01/24/25 01/24/25 17:25 20:17 21:29 WBC 3.0 L RBC 2.57 L Hgb 8.2 L Hct 27.1 L MCV 105.4 H MCH 31.9 MCHC 30.3 L RDW Std Deviation 69.4 H RDW Coeff of Jeffery 18.0 H Plt Count 59 L MPV 10.6 Immature Gran % (Auto) 1.000 H Neut % (Auto) 64.8 Lymph % (Auto) 20.8 [place] % (Auto) 12.1 H Eos % (Auto) 0.3 Baso % (Auto) 1.0 Absolute Neuts (auto) 1.9 L Absolute Lymphs (auto) 0.62 L Nucleated RBC % 0 Platelet Estimate MOD DEC Polychromasia 1+ Anisocytosis 1+ PT 16.2 H INR 1.3 APTT 38.4 H Sodium 144 Potassium 4.4 Chloride 103 Carbon Dioxide 21.8 Anion Gap 19 H BUN 23 H Creatinine 1.07 Estim Creat Clear Calc 45.55 L Est GFR (MDRD) Non-Af 57 L BUN/Creatinine Ratio 21.3 H Glucose 83 Lactic Acid 10.7 H* Calcium 9.3 Total Bilirubin 0.80 AST 70 H ALT 30 Alkaline Phosphatase 216 H Troponin T High Sens 21 H Troponin T Hi Sens 2 Hr 18 H Troponin T Hi Sens 4Hr 21 H NT pro BNP II 2369 H Total Protein 5.2 L Albumin 2.8 L Globulin 2.3 Albumin/Globulin Ratio 1.2 01/24/25 21:40 WBC RBC Hgb Hct MCV MCH MCHC RDW Std Deviation RDW Coeff of Jeffery Plt Count MPV Immature Gran % (Auto) Neut % (Auto) Lymph % (Auto) [place] % (Auto) Eos % (Auto) Baso % (Auto) Absolute Neuts (auto) Absolute Lymphs (auto) Nucleated RBC % Platelet Estimate Polychromasia Anisocytosis PT INR APTT Sodium Potassium Chloride Carbon Dioxide Anion Gap BUN Creatinine Estim Creat Clear Calc Est GFR (MDRD) Non-Af BUN/Creatinine Ratio Glucose Lactic Acid 12.7 H* Calcium Total Bilirubin AST ALT Alkaline Phosphatase Troponin T High Sens Troponin T Hi Sens 2 Hr Troponin T Hi Sens 4Hr NT pro BNP II Total Protein Albumin Globulin Albumin/Globulin Ratio Radiography Chest X-Ray - ED: 1 View and Read by ED Physician (Comparisons from 2008. Patient has a port noted right subclavian. There is discoid atelectasis on the right. There is chronic changes. There may be a small effusion on the right. Left heart border is visualized. Suspect patient has mild cardiomegaly. There is no obvious abnormalities noted of) Diagnostic Testing: Clinical Impression(s) from Imaging Studies Chest X-Ray 01/24/25 17:41 IMPRESSION: Pulmonary findings as above. Reading Location: [address] Chest/Abdomen/Pelvis CTA 01/24/25 18:35 IMPRESSION: 1. Generalized fluid overload/third-spacing with moderate bilateral pleural effusions, moderate-large volume abdominopelvic ascites, and diffuse subcutaneous edema. 2. Marked splenomegaly. Diffuse retroperitoneal lymphadenopathy, and enlarged inguinal lymph nodes. Nonspecific subcentimeter mediastinal/hilar and axillary nodes, all of which were shown to be hypermetabolic on recent PET-CT, likely related to known mantle cell lymphoma. 3. Mild right hydronephrosis without any discrete obstructing mass or ureteral stone visualized. Few subcentimeter nonobstructive right renal stones. Reading Location: [facility] The CT report was reviewed. Dr. Pate was paged at 2369. Findings are consistent with fluid overload. She will need an echo and cardiac workup as well as consultation with oncology. EKG Initial EKG: Attestation: I personally reviewed and interpreted this EKG as follows: Interpretation: Sinus Rhythm (Rate is 94. MO was 160 ms. Cures duration 60 ms. QT duration Ronny 68 ms. [place] is normal. There are premature atrial beats noted.) Management Discussion w/another healthcare provider: Hospitalist (Spoke with Dr. Pate. Because of her lactate he is requesting a CTA of the chest, abdomen pelvis since the cause of her lactic acidosis is uncertain. She has undifferentiated shock.) Treatment and Re-Evaluation :: Since patient not able to care for self ambulate has worsening labs we will have real estate legal secretary jim hospitalist for admission. Patient was administered Lasix for her weight gain and lymphedema. Had a laila discussion regarding CODE STATUS. She was informed based on her lactate her chance of leaving the hospital is less than 50%. Patient wants her heart restarted. She wants replaced on life support. I do not believe she totally comprehends because she asked if she would still be getting chemo tomorrow. I informed her that she would not. Spoke to Dr. Pate after I reviewed the CT results of chest abdomen pelvis. He was reluctant to admit patient. He requested I speak with oncology. I did speak with Dr. Dan. He states the lactic acidosis may be due to her lymphoma. He he recommended admitting her diuresing her and they will need to talk to her about treatment and start treatment at all likelihood tomorrow Critical Care Time Critical Care Time: Yes Critical care time (excluding procedures): 30-74 minutes (47), Including time spent: (History, physical, documentation, review of prior records, independent or potation laboratory results), Discussing w/Patient &/or Family/News Gathering Technician (Discussion with family patient regarding living will, CODE STATUS), Discussing w/Consultants (Hospitalist and oncologist) and Arranging Admission or Transfer Discharge Plan Dx/Rx/DC Orders Clinical Impression: Shock, Pancytopenia, Symptomatic anemia, Signs and symptoms of anemia, Mantle cell lymphoma, Adult failure to thrive, Tachycardia, Elevated troponin, Lymphedema of both lower extremities, Acidosis, lactic, DNR (do not resuscitate) discussion Disposition Disposition: Acute Care Hospital [facility]
[2025-01-24 18:11] LABS: AST(SGOT) 70 U/L (<=31); Alanine Aminotransfer ALT/SGPT 30 U/L (<=34); Albumin, Serum 2.8 g/dL (3.4-4.8); Alkaline Phosphatase 216 U/L (35-104); Anion Gap 19 (5-15); BUN 23 mg/dL (4-19); BUN/Creat Ratio 21.3 RATIO (10-20); Calcium,Total 9.3 mg/dL (7.6-11.0); Carbon Dioxide 21.8 mmol/L (21.0-32.0); Chloride 103 mmol/L (98-108); Estimated Creatinine Clearance 45.55 ml/min (50-250); Globulin 2.3 g/dL (2.2-4.2); Glucose 83 mg/dL (70-99); Potassium 4.4 mmol/L (3.3-5.1); Pro- Brain NATRIURETIC PEPTIDE 2369 pg/mL (<=900); Troponin T High Sensitivity 21 ng/L (<=14)
[2025-01-24] MEDS: Furosemide 20 MG/2 ML VIAL IV (18:32)
--- NOTE | 2025-01-24 18:35 | CT_ITS ---
PROCEDURE: CTA CHST, ABD, PEL W AND/OR WO 01/24/2025 REASON FOR EXAM: UNDIFFERENTIATED SHOCK AND DYSPNEA TECHNIQUE: Procedure Code: CTCTA.CHAP.2 Modality: CT Procedure: CTA CHST, ABD, PEL W AND/OR WO Coronal and Sagittal reconstructions were provided. 3D post processing was performed. One or more dose reduction techniques were used (e.g., Automated exposure control, adjustment of the mA and/or kV according to patient size, use of iterative reconstruction technique. CONTRAST: Isovue 370 VOLUME: 100 mL RADIATION DOSE SUMMARY: CTDlvol: 16.86 mGy DLP: 568.91 mGycm COMPARISON: PET-CT 01/19/2025. FINDINGS: Lungs/pleura: Moderate bilateral pleural effusions with adjacent passive atelectasis. Interstitial edema. Otherwise clear aerated lung segments. Patent central airways. Mediastinum: No suspicious lymph node enlargement. Nonspecific subcentimeter mediastinal, hilar and axillary lymph nodes which were shown to be hypermetabolic on PET-CT. Heart: Normal size. No pericardial effusion. No significant coronary artery calcification. Aorta: Normal in course and caliber. No aneurysm or dissection. Major aortic branch vessels are patent, normal in course and caliber. Mild atherosclerotic disease. Liver: No significant abnormality, given early arterial phase timing of IV contrast. Gallbladder: Grossly unremarkable. Spleen: Marked splenomegaly with heterogeneous enhancement, similar to prior. Pancreas: No significant abnormality appreciated. Adrenals: Not well-visualized. No discrete nodules. Kidneys: Mild right hydronephrosis, without an obstructing stone or discrete mass appreciated. No hydronephrosis on the left. Symmetric parenchymal enhancement. Subcentimeter nonobstructive stones in the midpole of the right kidney, unchanged. Bladder: Grossly unremarkable. Reproductive Organs: Grossly unremarkable. Adnexae not well-visualized. Bowel: No evidence for obstruction or discrete active inflammatory process. Peritoneum / Retroperitoneum: Moderate-large volume abdominopelvic ascites. No free air. Conglomerate periaortic/retroperitoneal lymphadenopathy, previously shown to be hypermetabolic on PET-CT, no substantial interval change appreciated. Enlarged inguinal lymph nodes, greater on the left. Musculoskeletal: Mild multilevel degenerative changes of the spine. No aggressive osseous lytic or blastic lesion appreciated. Diffuse subcutaneous edema/anasarca. CT/CTA Chst, Abd, Pel W and/or WO IMPRESSION: 1. Generalized fluid overload/third-spacing with moderate bilateral pleural eff usions, moderate-large volume abdominopelvic ascites, and diffuse subcutaneous edema. 2. Marked splenomegaly. Diffuse retroperitoneal lymphadenopathy, and enlarged inguinal lymph nodes. Nonspecific subcentimeter mediastinal/hilar and axillary nodes, all of which were shown to be hypermetabo lic on recent PET-CT, likely related to known mantle cell lymphoma. 3. Mild right hydronephrosis without any discrete obstructing mass or ureteral stone visualized. Few subcentimeter nonobstructive right renal stones. Reading Location: [id number]
[2025-01-24 20:37] LABS: Troponin T High Sens 2 HR 18 ng/L (<=14)
[2025-01-24 21:28] LABS: Reflex Lactate? Y
[2025-01-24 21:57] LABS: Troponin T High Sens 4 HR 21 ng/L (<=14)
--- NOTE | 2025-01-24 23:04 | PCM.HP.STD ---
HPI - General General Date of Admission: 01/24/25 Date of Service: 01/24/25 Chief Complaint: Progressive weakness and volume overload HPI Narrative ESTELLA MIRELES, is a 69 F who presented to [facility] ED on 01/24/2025 with progressive weakness and volume overload. Patient was recently diagnosed with B-cell/mantle cell lymphoma and established with Oncology here. She had chemotherapy port placed and plan was to begin chemotherapy tomorrow. Unfortunately she has had worsening weakness with weight gain over the past several days and has been unable to care for self at home, so family brought her in for further evaluation. In the ED she was normotensive and hemodynamically stable on room air at rest. Labs notable for hemoglobin 8.2, WBC count 3.0, platelet count 59, INR 1.3, lactic acid 10.7. BNP 2369. LFTs stable from previous. CT chest abdomen pelvis showed generalized fluid overload/third spacing with moderate bilateral pleural effusions, moderate to large ascites, marked splenomegaly with diffuse retroperitoneal lymphadenopathy, and mild right hydronephrosis with no discrete obstructing mass noted. Dr. Subramanian discussed case with Dr. Dan who noted the elevated lactic acid was likely due to poor clearance in setting of her lymphoma, and he noted patient could be admitted here for diuresis and further discussion regarding possible treatment options and goals of care. Dr. Subramanian broached goals of care with the patient and patient noted that she wished to be full code and be aggressive with her care. Hospitalist was then contacted for admission. I saw the patient at bedside in the ED, son and daughter were present. Patient was fatigued and thin appearing, was otherwise sitting back fairly comfortably in bed and conversing normally. She denied any acute pain or discomfort. Noted that she was feeling hungry as she had not eaten much since yesterday evening. She did have significant urine output with 1 dose of IV Lasix thus far. I noted to her and family that we are very concerned about her overall prognosis, and I am unsure if she will be a candidate for chemotherapy at this time. However, oncology will be seeing her tomorrow morning to discuss this with her further. Will be admitted for further management. [facility] Medical History Wears glasses Cancer History of renal disease Heartburn Gastric reflux Former smoker History of edema Hypokalemia Encounter for education 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 Depression Emphysema lung COPD (chronic obstructive pulmonary disease) Postmenopausal IBS (irritable bowel syndrome) Positive colorectal cancer screening using Cologuard test Anemia Acute distention of stomach Abdominal pain Hypertension Vitamin D deficiency Splenomegaly Home Medications ?Medication ?Instructions ?Recorded ?Last Taken ?Type cholecalciferol (vitamin D3) 1,250 1,250 mcg PO QMONTH BONE HEALTH 11/26/24 01/19/25 History mcg (50,000 unit) capsule vitamin B complex 1 tab PO QDAY FOR ENERGY 11/26/24 01/19/25 History mv-mn [id number] 1 tab PO DAILY SUPPLEMENT 12/07/24 01/19/25 History pantoprazole 40 mg tablet,delayed 40 mg PO DAILY STOMACH 12/07/24 12/06/24 History release allopurinol 300 mg tablet 300 mg PO QDAY #7 tabs 01/14/25 Unknown Rx lidocaine-prilocaine 2.5 %-2.5 % 1 applic topical ONCE PRN port 01/14/25 Unknown Rx topical cream access 30 days #30 grams ondansetron 8 mg disintegrating 8 mg PO Q8H PRN nausea and 01/14/25 Unknown Rx tablet vomiting #30 tabs potassium chloride 20 mEq 20 meq PO DAILY #3 tabs 01/14/25 01/19/25 Rx tablet,extended release(part/cryst) tramadol 50 mg tablet 50 mg PO Q6H PRN pain 2 days #5 01/21/25 Unknown Rx tabs Allergy/AdvReac Type Severity Reaction Status Date / Time moxifloxacin (From Avelox) Allergy Unknown unknown Verified 01/24/25 15:27 terbinafine Allergy Unknown rash Verified 01/24/25 15:27 Family History Father Alcohol abuse Mother Heart disease Depression Surgical History History of dental surgery Social History Smoking Status: Current every day smoker tobacco type: cigarettes Tobacco: How many years used: 50 alcohol intake: never substance use type: does not use ROS Constitutional Constitutional: Reports fatigue and weakness; Denies chills or fever(s) Eyes Eyes: Denies change in vision Cardiovascular Cardiovascular: Reports edema; Denies chest pain Respiratory/Chest Respiratory/Chest: Denies cough, productive cough, shortness of breath at rest or wheezing Gastrointestinal Gastrointestinal: Reports nausea; Denies abdominal pain, constipation, diarrhea or vomiting Musculoskeletal Musculoskeletal: Denies arthralgias or myalgias Neurologic Neurologic: Denies dizziness, focal weakness or headache(s) Vital Signs Vital Signs Vital Signs: 01/24/25 15:28 01/24/25 17:27 01/24/25 18:50 Temperature 97.8 F 98.7 F 97.9 F Temperature Source Oral Oral Pulse Rate 104 H 91 85 Respiratory Rate 18 18 32 H Blood Pressure 112/68 158/75 H Blood Pressure Mean 82 102 Pulse Ox 98 99 98 Oxygen Delivery Method Room Air Room Air 01/24/25 19:00 01/24/25 21:00 01/24/25 22:00 Temperature Temperature Source Pulse Rate 88 96 96 Respiratory Rate 16 14 19 H Blood Pressure 110/68 109/65 116/69 Blood Pressure Mean 82 79 79 Pulse Ox 97 74 97 Oxygen Delivery Method Room Air Room Air Room Air Weight Weight: 57.334 kg Body Mass Index (BMI) 19.8 Physical Exam Const alert, oriented x3 and no apparent distress Constitutional Narrative: Elderly female, appears older than stated age, thin and somewhat cachectic appearing, mildly fatigued appearing, otherwise sitting back fairly comfortably in bed, answering questions appropriately, in no acute distress. General Appearance: cooperative HEENT normocephalic, head/scalp atraumatic, hearing grossly normal bilaterally, nasal mucous membranes and turbinates normal and moist oral mucous membranes Eyes PERRL, EOMs intact bilaterally and conjunctivae normal Neck full ROM Chest inspection of chest normal Resp normal respiratory effort and no use of accessory muscles Resp Narrative: Breathing comfortably on room air at rest. Significantly diminished breath sounds at bilateral lung bases with mild crackles noted in mid lung zones, otherwise good air movement with no wheezing noted. Cardio regular rate, regular rhythm, no murmurs and peripheral pulses 2+ throughout GI GI Narrative: Significant lower abdominal distention with fluid wave noted. No tenderness palpation. Back/Spine normal ROM Extremity Extremity Narrative: +4 pitting edema noted up to the mid thighs. Skin no rashes or lesions noted Neuro Neuro Narrative: Generalized lower extremity weakness noted. Psych mental status grossly normal Results Lab / Micro Data 01/24/25 17:25 01/24/25 17:25 Labs: Laboratory Results - last 24 hr 01/24/25 17:25: WBC 3.0 L, RBC 2.57 L, Hgb 8.2 L, Hct 27.1 L, MCV 105.4 H, MCH 31.9, MCHC 30.3 L, RDW Std Deviation 69.4 H, RDW Coeff of Jeffery 18.0 H, Plt Count 59 L, MPV 10.6, Immature Gran % (Auto) 1.000 H, Neut % (Auto) 64.8, Lymph % (Auto) 20.8, Green % (Auto) 12.1 H, Eos % (Auto) 0.3, Baso % (Auto) 1.0, Absolute Neuts (auto) 1.9 L, Absolute Lymphs (auto) 0.62 L, Nucleated RBC % 0, Platelet Estimate MOD DEC, Polychromasia 1+, Anisocytosis 1+, PT 16.2 H, INR 1.3, APTT 38.4 H, Sodium 144, Potassium 4.4, Chloride 103, Carbon Dioxide 21.8, Anion Gap 19 H, BUN 23 H, Creatinine 1.07, Estim Creat Clear Calc 45.55 L, Est GFR (MDRD) Non-Af 57 L, BUN/Creatinine Ratio 21.3 H, Glucose 83, Lactic Acid 10.7 H*, Calcium 9.3, Total Bilirubin 0.80, AST 70 H, ALT 30, Alkaline Phosphatase 216 H, Troponin T High Sens 21 H, NT pro BNP II 2369 H, Total Protein 5.2 L, Albumin 2.8 L, Globulin 2.3, Albumin/Globulin Ratio 1.2 01/24/25 20:17: Troponin T Hi Sens 2 Hr 18 H 01/24/25 21:29: Troponin T Hi Sens 4Hr 21 H 01/24/25 21:40: Lactic Acid 12.7 H* Imaging Radiology Impression Chest X-Ray 01/24/25 17:41 IMPRESSION: Pulmonary findings as above. Reading Location: [address] Chest/Abdomen/Pelvis CTA 01/24/25 18:35 IMPRESSION: 1. Generalized fluid overload/third-spacing with moderate bilateral pleural effusions, moderate-large volume abdominopelvic ascites, and diffuse subcutaneous edema. 2. Marked splenomegaly. Diffuse retroperitoneal lymphadenopathy, and enlarged inguinal lymph nodes. Nonspecific subcentimeter mediastinal/hilar and axillary nodes, all of which were shown to be hypermetabolic on recent PET-CT, likely related to known mantle cell lymphoma. 3. Mild right hydronephrosis without any discrete obstructing mass or ureteral stone visualized. Few subcentimeter nonobstructive right renal stones. Reading Location: [id number] Assessment & Plan Assessment/Plan (1) Adult failure to thrive: (2) Acidosis, lactic: (3) Pancytopenia: (4) Mantle cell lymphoma: QUALIFIERS: Lymphoma site: multiple regions Qualified Code(s): C83.18 - Mantle cell lymphoma, lymph nodes of multiple sites PLAN: Plan Patient is a 69-year-old female who presented to [facility] ED on 01/24/2025 with worsening weakness and volume overload. 1. Adult failure to thrive/anasarca/pancytopenia/severe lactic acidosis/mild elevated LFTs in setting of mantle cell lymphoma ? Admit under inpatient status to ICU. House Furnishings Supervisor and oncology consulted. PT/OT/case management consulted. See HPI for further details. In short, patient recently diagnosed with mantle cell lymphoma and follows with oncology here. Had port placed with plan to initiate chemotherapy with bendamustine/rituxin on 01/25. Has had worsening weakness and volume overload presumably secondary to her cancer. CT chest abdomen pelvis on admit showed known massive splenomegaly and known diffuse retroperitoneal lymphadenopathy with worsening moderate bilateral pleural effusions and diffuse ascites. BNP 2600. Recent CBC on 01/11 with Hgb 10.2, WBC 4.1, plt 74. Repeat CBC on this admit with hemoglobin 8.2, WBC count 3.0, platelet count 59. Suspect these decreases are due to hemodilution from worsening volume overload along with her active cancer. Lactic acid 10.7 and worsened to 12.[address] Dan, suspect that elevated lactate is due to poor clearance in setting of cancer. Bicarb 21 with anion gap 19 due to mild lactic acidosis. In short, plan is to diurese the patient aggressively overnight and then oncology will see her in the morning to discuss next steps in her care. Discussed goals of care with patient in the ED and she wished to remain full code until further discussion with oncology. Follow-up a.m. labs. 2. GERD ? Continue home PPI. 3. Former tobacco abuse ? Encouraged continued cessation. DVT prophylaxis: Lovenox CODE STATUS: Full code, verified Expected disposition: TBD Total clinical time spent by myself addressing the patient's medical issues, reviewing all the data, and collaborating with patient's care team: 84 minutes. Charges/Coding Visit Charges Inpatient E&M: 86443 Init Hosp L3
--- OUTSIDE RECORDS SUMMARY | 2025-01-24 23:27 | XMS RPT_ITS | CCD ---
Author Organization [facility] Care Team Providers Care Chemistry Laboratory Technician Name Role Phone RANJITH HINES APRN, CNP Primary Care Phys ician Ranjith Ling CNP Primary Care Provider [phone] Ranjith Ling CNP Primary Care Provider ANURADHA JOHNSON - RANJITH VASQUEZ Primary Care U navailable ANURADHAKAMARI JOHNSON - RANJITH VASQUEZ Attending U navailable ANURADHAKAMARI JOHNSON - RANJITH VASQUEZ Primary Care U navailable ANURADHA ALEX - RANJITH VASQUEZ Attending U roel PEREZ MD, DR DECKER Attending Unavailabl e ANURADHA JOHNSON - RANJITH VASQUEZ Primary Care U navailable ARTURO SHAIKH DO Attending Unavailable ANURADHALAURIE JOHNSON - RANJITH VASQUEZ Primary Care U navailable [place] eng[place] CNP Primary Care Provider RANJITH LING Primary Care Unavailable TO ALCARAZ Attending Unavailable RANJITH LING Referring Unavailable PROVIDER, UNKNOWN Attending Unavailable PROVIDER, UNKNOWN Admitting Unavailable Anuradha CARD GAME OPERATOR-CRanjith Primary Care Physi lalitha Dr. Jeronimo Perez MD Attending Physician Dr. Jeronimo Perez MD Referring Provider Allegra Hylton Attending Physician Unavailable Moris LOPEZ, Dr. Roa Emergency Department Physician ANURADHA JOHNSON - RANJITH VASQUEZ Attending U navailable ANURADHAKAMARI JOHSNON - RANJITH VASQUEZ Primary Care U navailable ANURADHA TOOL DRESSER - PROTOTYPE ENGINEER MANAGERRANJITH Attending U navailable ANURADHA TOOL DRESSER - PROTOTYPE ENGINEER MANAGER, RANJITH Smith Primary Care U navailable ANURADHA TOOL DRESSER - PROTOTYPE ENGINEER MANAGER, RANJITH Smith Primary Care U navailable ANURADHA TOOL DRESSER - PROTOTYPE ENGINEER MANAGER, RANJITH Smith Attending U navailable Anuradha CARD GAME OPERATOR-C, Ranjith Maximus Primary Care Physi lalitha Nelida LOPEZ, Dr. Decker Attending Physician Nelida LOPEZ, Dr. Decker Referring Provider Allegra Hylton Attending Physician Unavailable Moris LOPEZ, Dr. Roa Attending Physician Moris LOPEZ, Dr. Roa Emergency Department Physician Anuradha CARD GAME OPERATOR-C, Ranjith Stroud Referring Provider Jero LOPEZ, Dr. Caal Attending Physician Emre LOPEZ, Dr. Madera Attending Physician Jero LOPEZ, Dr. Caal Referring Provider Emre LOPEZ, Dr. Madera Referring Provider [place], Ranjith Maximus Referring Unavail able Anuradha, Ranjith Stroud Primary Care Unavail able Cassy Andrea Attending Unavailable Anuradha, Ranjith Marcelinonis Referring Unavail able BriannekarTen lr Attending Unavailable Anuradha, Ranjith Marcelinonis Primary Care Unavail able Anuradha, Ranjith Stroud Primary Care Unavail able Cassy Andrea Attending Unavailable BriannekarTen lr Attending Unavailable Briannekarus, Ten Referring Unavailable [place], Ranjith Marcelinonis Primary Care Unavail able IsckarusTen Attending Unavailable Isckarus, Mansour Referring Unavailable [place], Ranjith Stroud Primary Care Unavail able Jeronimo Perez Attending Unavailable Nelida, Jeronimo Referring Unavailable [place], Ranjith Marcelinonis Primary Care Unavail able Anuradha, Ranjith Maximus Consulting Unavail able Jeronimo Perez Attending Unavailable Joribour, Jeronimo Referring Unavailable Anuradha, Ranjith Maximus Primary Care Unavail able [place], Ranjith Maximus Primary Care Unavail able RobotCassy zarate Attending Unavailable Robottessa Cassy Referring Unavailable [place], Ranjith Maximus Primary Care Unavail able Crispin Subramanian Attending Unavailable Allegra Hylton Attending Unavailable Anuradha, Ranjith Maximus Primary Care Unavail able Anuradha, Ranjith Maximus Primary Care Unavail able Isckarus, Mansour Attending Unavailable Ranjith Ling Referring Unavail able Allergies Allergy Classification Reported Allergen(s) Allergy Type Date of Onset Reaction(s) Facility (15 sources) moxifloxacin; Translations: [moxifloxacin] Drug Allergy 2 Hives [facility] (13 sources) terbinafine; Translations: [terbinafine] Drug Allergy 2 Hives, Fatigue (finding), Fever (finding), Eruption of skin (disorder) [facility] Work Phone: (1 source) moxifloxacin Drug Allergy 5 [facility] (1 source) terbinafine Drug Allergy 5 [facility] Medications Current Medications Medication Drug Class(es) Dates Sig (Normalized) Sig (Original) acetaminophen 325 mg / HYDROcodone bitartrate 5 mg oral tablet (2 sources) Opioid Agonist Start: 11-24-2024 End: 11-29-2024 take 1 tablet by mouth every six hours as needed for pain [place] 325- 5 mg oral tablet Dose = 1 tab(s), Oral, q6h, PRN for pain, Fill Date: 11/24/2024, X 5 day(s), # 20 tab(s), 0 Refill(s), Pharmacy: [facility], T-cell lymphoma, 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, cm, 11/24/24 12:54:00 EDT, Height, 47.4, kg, 11/24/24 12:54:00 EDT, Dosing Weight Start Date: 11/24/24 Stop Date: 11/29/24 Status: Ordered Medication Dispense Status: Completed Quantity: 20.0 Unit: tab(s) Total Allowed Fills: 1 Fills Dispensed: 0 Indications: Non-Hodgkin lymphoma, unspecified, unspecified site; [id number] 200 actuat albuterol 0.09 mg/actuat metered dose inhaler (6 sources) beta2-Adrenergic Agonist Start: 12-08-2021 albuterol HFA (PROVENTIL HFA, VENTOLIN HFA) 90 mcg/actuation inhaler 12/08/2021 Active Start: 03-28-2021 End: 06-26-2021 take 1 puff(s) by inhalation every four hours ProAir HFA MDI (90 mcg/inh) inhalation aerosol 1 puff(s), Inhalation, q4h, # 8 gram(s), 2 Refill(s), Pharmacy: [facility], Acute bronchitis, 169.5, cm, [...] q6h, # 18 gram(s), 0 Refill(s), Pharmacy: [facility], Acute bronchitis, 169.5, cm, [...] tab(s), 0 Refill(s), 06/25/21 9:54:00 EDT, Pharmacy: [facility], Acute URI, 169.5, cm, [...] qmonth, # 4 cap(s), 1 Refill(s), Pharmacy: [facility], Vitamin D deficiency, 167, cm, 09/15/24 14:37:00 [...] qmonth, # 4 cap(s), 1 Refill(s), Pharmacy: [facility], Vitamin D deficiency, 166, cm, 04/23/23 13:15:00 EST, Height, kg, 04/23/23 13:15:00 EST, Dosing Weight Start Date: 10/24/23 Stop Date: 04/21/24 Status: Ordered Start: 04-23-2023 End: 10-20-2023 cholecalciferol 1250 mcg (50 ,000 intl units) oral capsule Dose : 50,000 International_Unit = 1 cap(s), Oral, qmonth, # 4 cap(s), 1 Refill(s), Pharmacy: [facility], Vitamin D deficiency, 166, cm, 04/23/23 13:15:00 EST, Height, kg, 04/23/23 13:15:00 EST, Dosing Weight Start Date: 04/23/23 Stop Date: 10/20/23 Status: Ordered dexamethasone 6 mg oral tablet (2 sources) Corticosteroid Start: 07-04-2021 End: 07-14-2021 dexamethasone 6 mg oral tablet Dose : 6 mg = 1 tab(s), Oral, qDay, X 10 day(s), # 10 tab(s), 0 Refill(s), 07/14/21 13:40:00 EDT, Pharmacy: [facility], Acute bronchitis, 169.5, cm, 07/04/21 13:17:00 EDT, Height Start Date: 07/04/21 Stop Date: 07/14/21 Status: Ordered Start: 06-20-2021 End: 06-30-2021 dexamethasone 6 mg oral tabl et Dose : 6 mg = 1 tab(s), Oral, qDay, X 10 day(s), # 10 tab(s), 0 Refill(s), 06/30/21 9:54:00 EDT, Pharmacy: [facility], Acute URI, 169.5, cm, 06/20/21 9:22:00 EDT, Height Start Date: 06/20/21 Stop Date: 06/30/21 Status: Ordered doxycycline monohydrate 100 mg oral capsule (1 source) Tetracycline-class Drug Start: 07-04-2021 End: 07-14-2021 doxycycline monohydrate 100 mg oral capsule Dose : 100 mg = 1 cap(s), Oral, BID, X 10 day(s), # 20 cap(s), 0 Refill(s), 07/14/21 13:40:00 EDT, Pharmacy: [facility], Acute bronchitis, 169.5, cm, 07/04/21 13:17:00 EDT, Height, 48.1 Start Date: 07/04/21 Stop Date: 07/14/21 Status: Ordered 12 hr guaiFENesin 600 mg extended release oral tablet (2 sources) Start: 07-04-2021 End: 07-14-2021 guaiFENesin 600 mg oral tablet, extended release Dose : 600 mg = 1 tab(s), Oral, q12h, X 10 day(s), # 20 tab(s), 0 Refill(s), 07/14/21 13:40:00 EDT, Pharmacy: [facility], Acute bronchitis, 169.5, cm, 07/04/21 13:17:00 EDT, Height Start Date: 07/04/21 Stop Date: 07/14/21 Status: Ordered Start: 06-20-2021 End: 06-30-2021 guaiFENesin 600 mg oral tabl et, extended release Dose : 600 mg = 1 tab(s), Oral, q12h, X 10 day(s), # 20 tab(s), 0 Refill(s), 06/30/21 9:54:00 EDT, Pharmacy: [facility], Acute URI, 169.5, cm, [...] qDay, # 90 tab(s), 1 Refill(s), Pharmacy: [facility], 166, cm, 04/23/23 13:15:00 EST, Height, kg, 04/23/23 13:15:00 EST, Dosing Weight Start Date: 10/24/23 Status: Ordered Start: 04-23-2023 take 1 tablet by delfin th once daily hydrochlorothiazide-lisinopril 12.5 mg-1 0 mg oral tablet Dose = 1 tab(s), Oral, qDay, # 90 tab(s), 1 Refill(s), Pharmacy: [facility], 166, cm, 04/23/23 13:15:00 EST, Height, kg, 04/23/23 13:15:00 EST, Dosing Weight Start Date: 04/23/23 Status: Ordered Start: 01-05-2022 lisinopril-hyd roCHLOROthiazide (PRINZIDE,ZESTORETIC) 10-12.5 mg per tablet 01/05/2022 Active Start: 03-28-2021 End: 12-23-2021 take 1 tablet by mouth once daily hydrochlorothiazide-lisinopril 12.5 mg-1 0 mg oral tablet Dose = 1 tab(s), Oral, qDay, # 90 tab(s), 2 Refill(s), Pharmacy: [facility], 169.5, cm, 03/28/21 13:30:00 [...] 600 mg ta blet 10/05/2021 08/22/2024 Discontinued [facility] Medication (2 sources) Start: 12-09-2018 [facility] Medicatio n 1 tab, Daily, , 0 Refill(s) Start Date: 12/09/18 Status: Ordered mv-mn 747-NE-iw3-dha-epa-fis h (2 sources) Start: 12-07-2024 Start: 12-07-2024 mv-mn 115-FA-o l5-pxc-pto-fish Active 1 {tbl} PO DAILY December 07, [...] qDay, # 90 tab(s), 1 Refill(s), Pharmacy: [facility], Celiac disease, 167, cm, [...] nausea, # 30 tab(s), 0 Refill(s), Pharmacy: [facility], 169.5, cm, 06/20/21 9:22:00 [...] made to exam dated: 12/14/2011 mammogram - [facility]. The tissue of both breasts is extremely [...] made to exam dated: 12/14/2011 mammogram - [facility]. The tissue of both breasts is extremely [...] Automatedon 11-1 Anisocytosis Ql (Bld) 1+ Normal [facility] Comment on above: Performed By: #### L 300.3900, L300.4310, L101.9900, L3410.2400, L100.0500, L501.6710, L500.4050 #### [facility] [address] [place], [address] PLT EST MOD DEC Normal ADEQ [facility] Comment on above: Performed By: #### L 300.3900, L300.4310, L101.9900, L3410.2400, L100.0500, L501.6710, L500.4050 #### [facility] [address] [place], [address] Comprehensive Metabolic Prof ilon 01-11-2025 Albumin [Mass/Vol] 3.0 g/dL Low 3.4-4.8 [facility] Comment on above: Performed By: #### L 300.3900, L300.4310, L101.9900, L3410.2400, L100.0500, L501.6710, L500.4050 #### [facility] [address] [place], [address] Albumin/Globulin [Mass ratio] 1.2 {ratio} Normal 0.9-2.4 [facility] Comment on above: Performed By: #### L 300.3900, L300.4310, L101.9900, L3410.2400, L100.0500, L501.6710, L500.4050 #### [facility] [address] [place], [address] ALK PHOS 234 U/L High 35-104 [facility] Comment on above: Performed By: #### L 300.3900, L300.4310, L101.9900, L3410.2400, L100.0500, L501.6710, L500.4050 #### [facility] [address] [place], [address] ALT [Catalytic activity/Vol] 46 U/L High <=34 [facility] Comment on above: Performed By: #### L 300.3900, L300.4310, L101.9900, L3410.2400, L100.0500, L501.6710, L500.4050 #### [facility] [address] [place], [address] AST [Catalytic activity/Vol] 84 U/L High <=31 [facility] Comment on above: Performed By: #### L 300.3900, L300.4310, L101.9900, L3410.2400, L100.0500, L501.6710, L500.4050 #### [facility] [address] [place], [address] Bilirubin [Mass/Vol] 1.11 mg/dL Normal 0.00-1.30 [facility] Comment on above: Performed By: #### L 300.3900, L300.4310, L101.9900, L3410.2400, L100.0500, L501.6710, L500.4050 #### [facility] [address] [place], [address] BUN/CRE 23.2 RATIO High 10-20 [facility] Comment on above: Performed By: #### L 300.3900, L300.4310, L101.9900, L3410.2400, L100.0500, L501.6710, L500.4050 #### [facility] [address] [place], [address] Calcium [Mass/Vol] 10.6 mg/dL Normal 7.6-11.0 [facility] Comment on above: Performed By: #### L 300.3900, L300.4310, L101.9900, L3410.2400, L100.0500, L501.6710, L500.4050 #### [facility] [address] [place], [address] Chloride [Moles/Vol] 102 mmol/L Normal 98-108 [facility] Comment on above: Performed By: #### L 300.3900, L300.4310, L101.9900, L3410.2400, L100.0500, L501.6710, L500.4050 #### [facility] [address] [place], [address] CO2 [Moles/Vol] 24.3 mmol/L Normal 21.0-32.0 [facility] Comment on above: Performed By: #### L 300.3900, L300.4310, L101.9900, L3410.2400, L100.0500, L501.6710, L500.4050 #### [facility] [address] [place], [address] ( Creatinine [Mass/Vol] 1.39 mg/dL High 0.70-1.20 [facility] Comment on above: Performed By: #### L 300.3900, L300.4310, L101.9900, L3410.2400, L100.0500, L501.6710, L500.4050 #### [facility] [address] [place], [place], [phone] (873) ECRCL 31.07 ml/min Low 50-250 [facility] Comment on above: Performed By: #### L 300.3900, L300.4310, L101.9900, L3410.2400, L100.0500, L501.6710, L500.4050 #### [facility] [address] [place], [place], [phone] (139) GAP 16 High 5-15 [facility] Comment on above: Performed By: #### L 300.3900, L300.4310, L101.9900, L3410.2400, L100.0500, L501.6710, L500.4050 #### [facility] [address] [place], [place], [phone] (957) GFR/1.73 sq M.predicted among non-blacks MDRD (S/P/Bld) [Vol rate/Area] 41 mL/min/{1.73_m2} Low >60 [facility] Comment on above: Result Comment: mL/m in/1.73m2 CKD-EPI Creatinine Equation (2020) Performed By: #### L 300.3900, L300.4310, L101.9900, L3410.2400, L100.0500, L501.6710, L500.4050 #### [facility] [address] [place], [address] Globulin (S) [Mass/Vol] 2.5 g/dL Normal 2.2-4.2 [facility] Comment on above: Performed By: #### L 300.3900, L300.4310, L101.9900, L3410.2400, L100.0500, L501.6710, L500.4050 #### [facility] [address] [place], [address] Glucose [Mass/Vol] 84 mg/dL Normal 70-99 [facility] Comment on above: Performed By: #### L 300.3900, L300.4310, L101.9900, L3410.2400, L100.0500, L501.6710, L500.4050 #### [facility] [address] [place], [address] Potassium [Moles/Vol] 3.7 mmol/L Normal 3.3-5.1 [facility] Comment on above: Performed By: #### L 300.3900, L300.4310, L101.9900, L3410.2400, L100.0500, L501.6710, L500.4050 #### [facility] [address] [place], [address] Sodium [Moles/Vol] 142 mmol/L Normal 133-145 [facility] Comment on above: Performed By: #### L 300.3900, L300.4310, L101.9900, L3410.2400, L100.0500, L501.6710, L500.4050 #### [facility] [address], [address] T PROT 5.5 g/dL Low 5.9-8.4 [facility] Comment on above: Performed By: #### L 300.3900, L300.4310, L101.9900, L3410.2400, L100.0500, L501.6710, L500.4050 #### [facility] [address] [place], [address] Urea nitrogen [Mass/Vol] 32 mg/dL High 4-19 [facility] Comment on above: Performed By: #### L 300.3900, L300.4310, L101.9900, L3410.2400, L100.0500, L501.6710, L500.4050 #### [facility] [address] [place], [address] Oncology Visit Reporton 01-02 Oncology Visit Report [facility] [address] [place], [place] [address] OFFICE VISIT Date of Service: 01/11/25 1459 MR#: [id number] Acct: [id number] Name: ESTELLA CHAO Rep #: [id number] : 1955 From: Ten Nogueira MD Age/Sex: 69/F Location: [facility] Status: Signed HPI Subjective Date of Service [...] with mantle cell lymphoma, p53 wild type. [facility] Medical History (Updated 01/11/25 @ 15:45 by [...] 01/11/25 15:03 (more content not included)... Normal [facility] Chest WITH Contraston 2024 Chest WITH Contrast [facility] Imaging Services [address] [place] [id number] Chest WITH Contrast MR#: [id number] Acct: [id number] Name: ESTELLA CHAO Rep #: [id number] : 1955 F 69 From: Roby munguia MD PCP: Ranjith Ling, CARD GAME OPERATOR-C Status: REG CLI Study: Chest WITH Contrast Date of Exam: 01/06/25 Exam# [id number] Ordering Dr: Ten Nogueira MD PROCEDURE: CHEST [...] at the left lung base. Reading Location: [facility] CC: CARD GAME OPERATOREstephania Ling; Dr. Ten Nogueira MD Documentation Specialist: Signed Normal [facility] Anion gap in Serum or Plasma Ordered By: Ten Nogueira on 12-29-2024 Anion gap [Moles/Vol] 15 mmol/L 07-16 [facility] BUN/creatinine ratioOrdered By: Ten Nogueira on 12-29-2024 Urea nitrogen/Creatinine [Mass ratio] 21.0 mg/mg High 12-21 [facility] Basic Metabolic Profile (BMP )on 12-29-2024 BUN/CRE 21.0 RATIO High 12-21 [facility] Comment on above: Performed By: #### L 300.3900, L300.4310, L101.9900, L3410.2400, L100.0500, L501.6710, L500.4050 #### [facility] [address] [place] [address] [address] [place], [place], [id number] Calcium [Mass/Vol] 10.4 mg/dL Normal 7.6-11.0 [facility] Comment on above: Performed By: #### L 300.3900, L300.4310, L101.9900, L3410.2400, L100.0500, L501.6710, L500.4050 #### [facility] [address] [place], [address] Chloride [Moles/Vol] 102 mmol/L Normal 98-108 [facility] Comment on above: Performed By: #### L 300.3900, L300.4310, L101.9900, L3410.2400, L100.0500, L501.6710, L500.4050 #### [facility] [address] [place], [address] CO2 [Moles/Vol] 27.1 mmol/L Normal 21.0-32.0 [facility] Comment on above: Performed By: #### L 300.3900, L300.4310, L101.9900, L3410.2400, L100.0500, L501.6710, L500.4050 #### [facility] [address] [place], [address] Creatinine [Mass/Vol] 1.03 mg/dL Normal 0.70-1.20 [facility] Comment on above: Performed By: #### L 300.3900, L300.4310, L101.9900, L3410.2400, L100.0500, L501.6710, L500.4050 #### [facility] [address] [place], [address] ECRCL 41.92 ml/min Low 50-250 [facility] Comment on above: Performed By: #### L 300.3900, L300.4310, L101.9900, L3410.2400, L100.0500, L501.6710, L500.4050 #### [facility] [address] [place], [address] GAP 15 Normal 5-15 [facility] Comment on above: Performed By: #### L 300.3900, L300.4310, L101.9900, L3410.2400, L100.0500, L501.6710, L500.4050 #### [facility] [address] [place], [address] GFR/1.73 sq M.predicted among non-blacks MDRD (S/P/Bld) [Vol rate/Area] 59 mL/min/{1.73_m2} Low >60 [facility] Comment on above: Result Comment: mL/m in/1.73m2 CKD-EPI Creatinine Equation (2020) Performed By: #### L 300.3900, L300.4310, L101.9900, L3410.2400, L100.0500, L501.6710, L500.4050 #### [facility] [address] [place], [address] Glucose [Mass/Vol] 91 mg/dL Normal 70-99 [facility] Comment on above: Performed By: #### L 300.3900, L300.4310, L101.9900, L3410.2400, L100.0500, L501.6710, L500.4050 #### [facility] [address] [place], [address] Potassium [Moles/Vol] 3.9 mmol/L Normal 3.3-5.1 [facility] Comment on above: Performed By: #### L 300.3900, L300.4310, L101.9900, L3410.2400, L100.0500, L501.6710, L500.4050 #### [facility] [address] [place], [address] Sodium [Moles/Vol] 144 mmol/L Normal 133-145 [facility] Comment on above: Performed By: #### L 300.3900, L300.4310, L101.9900, L3410.2400, L100.0500, L501.6710, L500.4050 #### [facility] [address] [place], [address] Urea nitrogen [Mass/Vol] 22 mg/dL High 4-19 [facility] Comment on above: Performed By: #### L 300.3900, L300.4310, L101.9900, L3410.2400, L100.0500, L501.6710, L500.4050 #### [facility] [address] [place], [place], [id number] Carbon dioxide, total [Moles /volume] in Central venous bloodOrdered By: Ten Nogueira on 12-29-2024 CO2 [Moles/Vol] 27.1 mmol/L 21.0-32.0 [facility] Chloride assayOrdered By: Felipe Nogueira on 12-29-2024 Chloride [Moles/Vol] 102 mmol/L 98-108 [facility] Glomerular filtration rate ( GFR) estimation/1.73 sq m using serum, plasma, or whole bOrdered By: eTn Nogueira on 12-29-2024 GFR/1.73 sq M.predicted among non-blacks MDRD (S/P/Bld) [Vol rate/Area] 59 mL/min/{1.73_m2} Low >60 [facility] Comment on above: mL/min/1.73m2 CKD-EP I Creatinine Equation (2020) L350.1820on 12-29-2024 Path. Sent [facility] SEE PATHOLOGY REPORT Normal [facility] Comment on above: Order Comment: RESUL TS FAXED TO DR ANDREA 01/11/25 Kimberlee59 Josh Webster. Result Comment: Spec imen sent to [facility] Pathology Department. Report available in EMR. Performed By: #### L 300.3900, L300.4310, L101.9900, L3410.2400, L100.0500, L501.6710, L500.4050 #### [facility] [address] [place], [address] L501.2276on 12-29-2024 Ionized Calcium 1.30 mmol/L Normal 1.09-1.30 [facility] Comment on above: Performed By: #### L 300.3900, L300.4310, L101.9900, L3410.2400, L100.0500, L501.6710, L500.4050 #### [facility] [address] [place], [address] Potassium measurement (mass/ volume)Ordered By: Ten Nogueira on 12-29-2024 Potassium (Unsp spec) [Mass/Vol] 3.9 mmol/L 3.3-5.1 [facility] Serum creatinine measurement (mass/volume)Ordered By: Ten Nogueira on 12-29-2024 Creatinine [Mass/Vol] 1.03 mg/dL 0.70-1.20 [facility] Serum glucose measurement (m ass/volume)Ordered By: Ten Nogueira on 12-29-2024 Glucose [Mass/Vol] 91 mg/dL 70-99 [facility] Serum or plasma calcium matt urement (mass/volume)Ordered By: Ten Nogueira on 12-29-2024 Calcium [Mass/Vol] 10.4 mg/dL 7.6-11.0 [facility] Comment on above: *Additional results available. Contact laboratory/see report* Serum or plasma urea nitroge n measurement (mass/volume)Ordered By: Ten Nogueira on 12-29-2024 Urea nitrogen [Mass/Vol] 22 mg/dL High 4-19 [facility] Sodium levelOrdered By: Aneta Nogueira on 12-29-2024 Sodium [Moles/Vol] 144 mmol/L 133-145 [facility] Surgery Visit Reporton 12-29 Surgery Visit Report [facility] [address] [place], [place] [address] OFFICE VISIT Date of Service: 12/29/24 MR#: [id number] Acct: [id number] Name: ESTELLA CHAO Rep #: [id number] : 1955 Provider: Dr. Cassy zarate MD Age/Sex: 69/F [facility] Status: Signed Intake Vital Signs 12/22/24 14:33 [...] QDAY FOR ENERGY 11/26/24 12/29/24 History mv-mn [id number] sh 1 tab PO DAILY SUPPLEMENT 12/07/24 12/29/24 History pantoprazole 40 mg tablet,delayed 40 mg PO DAILY STOMACH 12/07/24 1 History release Have you fallen in the past year?: No PFSH Medical History (Updated 12/29/24 @ 12:[address] Cassy Andrea MD) Humoral hypercalcemia of malignancy Lymphadenopathy [...] and no acute distress Nutritional Appearance: cachectic HENFL Head: normocephalic and atraumatic Neck Neck: supple [...] Status: ment (more content not included)... Normal [facility] Folates, RBCon 12-24-2024 Fol.,Hemolysate > 620.0 Normal Not Estab. [facility] Comment on above: Performed By: #### L 300.3900, L300.4310, L101.9900, L3410.2400, L100.0500, L501.6710, L500.4050 #### [facility] [address] [place], [place], [id number] Folate, RBC > 2074 Normal >498 [facility] Comment on above: Result Comment: Perf ormed at: [facility] [address] [id number] Dioramist: Jeronimo Means PhD, Phone: [phone] Performed By: #### L 300.3900, L300.4310, L101.9900, L3410.2400, L100.0500, L501.6710, L500.4050 #### [facility] [address] [place], [place], [id number] Hematocrit (Bld) [Volume fraction] 29.9 % Low 34.0-46.6 [facility] Comment on above: Performed By: #### L 300.3900, L300.4310, L101.9900, L3410.2400, L100.0500, L501.6710, L500.4050 #### [facility] [address] [place], [address] L501.0895on 12-24-2024 Calcium [Mass/Vol] 11.8 mg/dL High 7.6-11.0 [facility] Comment on above: Performed By: #### L 300.3900, L300.4310, L101.9900, L3410.2400, L100.0500, L501.6710, L500.4050 #### [facility] [address] [place], [address] L501.2276on 12-24-2024 Ionized Calcium 1.46 mmol/L High 1.09-1.30 [facility] Comment on above: Performed By: #### L 300.3900, L300.4310, L101.9900, L3410.2400, L100.0500, L501.6710, L500.4050 #### [facility] [address] [place], [address] PTHINon 12-24-2024 PTH 7 pg/mL Low 11-61 [facility] Comment on above: Performed By: #### L 300.3900, L300.4310, L101.9900, L3410.2400, L100.0500, L501.6710, L500.4050 #### [facility] [address] [place], [address] Urine Cultureon 12-24-2024 URC Presumptive E. coli [place] Count >100,000 Presumptive E. coli: REACTION Ampicillin [...] TMP SMX Islt EDEN <=20 S Normal [facility] Comment on above: Performed By: #### L 300.3900, L300.4310, L101.9900, L3410.2400, L100.0500, L501.6710, L500.4050 #### [facility] [address] [place], [address] Absolute lymphocyte countOrd ered By: Anetamarissa Nogueira on 12-22-2024 Lymphocytes Auto (Unsp spec) [#/Vol] 1.08 10*3/uL 0.83-4.51 [facility] Absolute neutrophil countOrd ered By: [facility] on 12-22-2024 Neutrophils (Bld) [#/Vol] 3.0 10*3/uL 2.0-7.7 [facility] Amorphous sediment detection in urine sediment by light microscopyOrdered By: Ten Nogueira on 12-22-2024 Amorphous sediment LM Ql (Urine sed) 2+ [facility] Automated lymphocyte count a s percentage of total leukocytesOrdered By: Ten Nogueira on 12-22-2024 Lymphocytes/100 WBC Auto (Unsp spec) 20.8 % 19- [facility] Basophil percentageOrdered B y: Ten Nogueira on 12-22-2024 Basophils/100 WBC (Bld) 1.9 % High 0-1 [facility] Bilirubin Test strip Ql (U)O rdered By: Ten Nogueira on 12-22-2024 Bilirubin Ql (U) Negative Negative [facility] Bilirubin, totalOrdered By: [facility] on 12-22-2024 Bilirubin [Mass/Vol] 0.96 mg/dL 0.00-1.30 [facility] Blood manual differential co mment interpretation (narrative result)Ordered By: Ten Nogueira on 12-22-2024 Manual differential comment Johnathon (Bld) [Interp] SCANNED [facility] Blood polychromasia detectio n by light microscopyOrdered By: Ten Nogueira on 12-22-2024 Polychromasia LM Ql (Bld) 1+ [facility] CBC W/Diff, Automatedon 12-03 Anisocytosis Ql (Bld) 2+ Normal [facility] Comment on above: Performed By: #### L 300.3900, L300.4310, L101.9900, L3410.2400, L100.0500, L501.6710, L500.4050 #### [facility] [address] [place], [address] HYPOCHROMASIA 1+ Normal [facility] Comment on above: Performed By: #### L 300.3900, L300.4310, L101.9900, L3410.2400, L100.0500, L501.6710, L500.4050 #### [facility] [address] [place], [address] PLT EST MOD DEC Normal ADEQ [facility] Comment on above: Performed By: #### L 300.3900, L300.4310, L101.9900, L3410.2400, L100.0500, L501.6710, L500.4050 #### [facility] [address] [place], [address] POLYCHROMASIA 1+ Normal [facility] Comment on above: Performed By: #### L 300.3900, L300.4310, L101.9900, L3410.2400, L100.0500, L501.6710, L500.4050 #### [facility] [address] [place], [place], [id number] SMEAR COMMENT SCANNED Normal [facility] Comment on above: Performed By: #### L 300.3900, L300.4310, L101.9900, L3410.2400, L100.0500, L501.6710, L500.4050 #### [facility] [address] [place], [address] Comprehensive Metabolic Prof [facility] 12-22-2024 Albumin [Mass/Vol] 3.6 g/dL Normal 3.4-4.8 [facility] Comment on above: Performed By: #### L 300.3900, L300.4310, L101.9900, L3410.2400, L100.0500, L501.6710, L500.4050 #### [facility] [address] [place], [address] Albumin/Globulin [Mass ratio] 1.4 {ratio} Normal 0.9-2.4 [facility] Comment on above: Performed By: #### L 300.3900, L300.4310, L101.9900, L3410.2400, L100.0500, L501.6710, L500.4050 #### [facility] [address] [place], [address] ALK PHOS 290 U/L High 35-104 [facility] Comment on above: Performed By: #### L 300.3900, L300.4310, L101.9900, L3410.2400, L100.0500, L501.6710, L500.4050 #### [facility] [address] [place], [address] ALT [Catalytic activity/Vol] 138 U/L High <=34 [facility] Comment on above: Performed By: #### L 300.3900, L300.4310, L101.9900, L3410.2400, L100.0500, L501.6710, L500.4050 #### [facility] [address] [place], [address] AST [Catalytic activity/Vol] 197 U/L High <=31 [facility] Comment on above: Performed By: #### L 300.3900, L300.4310, L101.9900, L3410.2400, L100.0500, L501.6710, L500.4050 #### [facility] [address] [place], [address] Bilirubin [Mass/Vol] 0.96 mg/dL Normal 0.00-1.30 [facility] Comment on above: Performed By: #### L 300.3900, L300.4310, L101.9900, L3410.2400, L100.0500, L501.6710, L500.4050 #### [facility] [address] [place], [address] BUN/CRE 22.3 RATIO High 10-20 [facility] Comment on above: Performed By: #### L 300.3900, L300.4310, L101.9900, L3410.2400, L100.0500, L501.6710, L500.4050 #### [facility] [address] [place], [address] Calcium [Mass/Vol] 12.2 mg/dL High 7.6-11.0 [facility] Comment on above: Performed By: #### L 300.3900, L300.4310, L101.9900, L3410.2400, L100.0500, L501.6710, L500.4050 #### [facility] [address] [place], [address] Chloride [Moles/Vol] 99 mmol/L Normal 98-108 [facility] Comment on above: Performed By: #### L 300.3900, L300.4310, L101.9900, L3410.2400, L100.0500, L501.6710, L500.4050 #### [facility] [address] [place], [address] CO2 [Moles/Vol] 25.9 mmol/L Normal 21.0-32.0 [facility] Comment on above: Performed By: #### L 300.3900, L300.4310, L101.9900, L3410.2400, L100.0500, L501.6710, L500.4050 #### [facility] [address] [place], [address] Creatinine [Mass/Vol] 0.99 mg/dL Normal 0.70-1.20 [facility] Comment on above: Performed By: #### L 300.3900, L300.4310, L101.9900, L3410.2400, L100.0500, L501.6710, L500.4050 #### [facility] [address] [place], [address] GAP 18 High 5-15 [facility] Comment on above: Performed By: #### L 300.3900, L300.4310, L101.9900, L3410.2400, L100.0500, L501.6710, L500.4050 #### [facility] [address] [place], [address] GFR/1.73 sq M.predicted among non-blacks MDRD (S/P/Bld) [Vol rate/Area] 62 mL/min/{1.73_m2} Normal >60 [facility] Comment on above: Result Comment: mL/m in/1.73m2 CKD-EPI Creatinine Equation (2020) Performed By: #### L 300.3900, L300.4310, L101.9900, L3410.2400, L100.0500, L501.6710, L500.4050 #### [facility] [address] [place], [address] Globulin (S) [Mass/Vol] 2.6 g/dL Normal 2.2-4.2 [facility] Comment on above: Performed By: #### L 300.3900, L300.4310, L101.9900, L3410.2400, L100.0500, L501.6710, L500.4050 #### [facility] [address] [place], [address] Glucose [Mass/Vol] 83 mg/dL Normal 70-99 [facility] Comment on above: Performed By: #### L 300.3900, L300.4310, L101.9900, L3410.2400, L100.0500, L501.6710, L500.4050 #### [facility] [address] [place], [address] Potassium [Moles/Vol] 3.9 mmol/L Normal 3.3-5.1 [facility] Comment on above: Performed By: #### L 300.3900, L300.4310, L101.9900, L3410.2400, L100.0500, L501.6710, L500.4050 #### [facility] [address] [place], [address] Sodium [Moles/Vol] 143 mmol/L Normal 133-145 [facility] Comment on above: Performed By: #### L 300.3900, L300.4310, L101.9900, L3410.2400, L100.0500, L501.6710, L500.4050 #### [facility] [address] [place], [address] T PROT 6.2 g/dL Normal 5.9-8.4 [facility] Comment on above: Performed By: #### L 300.3900, L300.4310, L101.9900, L3410.2400, L100.0500, L501.6710, L500.4050 #### [facility] [address] [place], [address] Urea nitrogen [Mass/Vol] 22 mg/dL High 4-19 [facility] Comment on above: Performed By: #### L 300.3900, L300.4310, L101.9900, L3410.2400, L100.0500, L501.6710, L500.4050 #### [facility] [address] [place], [address] Eosinophil percentageOrdered By: Ten Nogueira on 12-22-2024 Eosinophils/100 WBC (Bld) 0.8 % 0-5 [facility] Erythrocyte distribution wid th ratioOrdered By: Ten Nogueira on 12-22-2024 Erythrocyte distribution width (RBC) [Ratio] 18.1 % High 11.6-14.6 [facility] Erythrocyte distribution wid th standard deviationOrdered By: Ten Nogueira on 12-22-2024 Erythrocyte distribution width (RBC) [Ratio] 65.2 fl High 35.1-43.9 [facility] Erythrocyte folate measureme nt with hematocritOrdered By: Ten Nogueira on 12-22-2024 Hematocrit (Bld) [Volume fraction] 29.9 % Low 34.0-46.6 [facility] Ferritinon 12-22-2024 Ferritin [Mass/Vol] 630 ng/mL High 22-378 [facility] Comment on above: Performed By: #### L 300.3900, L300.4310, L101.9900, L3410.2400, L100.0500, L501.6710, L500.4050 #### [facility] [address] [place], [address] HIVon 12-22-2024 HIV Non-Reactive Normal Nonreactive [facility] Comment on above: Result Comment: Non- Reactive Reactive Repeatedly reactive samples must be confirmed according to CDC recommended confirmatory algorithms. The subresults for either HIVAG or AHIV can be used as an aid in the selection of the confirmation algorithm for reactive samples. Send out specimens with Reactive results to [facility] for confirmation. Order the HIV antibody detection and differentiation: #[id number] Performed By: #### L 300.3900, L300.4310, L101.9900, L3410.2400, L100.0500, L501.6710, L500.4050 #### [facility] [address] [place], [address] Hematocrit Auto (Bld) [Volum e fraction]Ordered By: Ten Nogueira on 12-22-2024 Hematocrit (Bld) [Volume fraction] 31.6 % Low 37-47 [facility] Hemoglobin measurementOrdere d By: Ten Nogueira on 12-22-2024 Hemoglobin (Bld) [Mass/Vol] 9.7 g/dL Low 12.0-15.0 [facility] Hypochromatic red blood cell detectionOrdered By: Ten Nogueira on 12-22-2024 Hypochromia Ql (Bld) 1+ [facility] Immature granulocytes/100 WB C Auto (Bld)Ordered By: Ten Nogueira on 12-22-2024 Immature granulocytes/100 WBC (Bld) 2.300 % High 0.0-0.9 [facility] Comment on above: IG% - Immature Granu locytes (promyelocytes, myelocytes and metamyelocytes) > 1% indicates that a LEFT SHIFT is Present. Immature platelet percentage Ordered By: Ten Nogueira on 12-22-2024 Platelets reticulated/100 platelets Auto (Bld) 3.2 % 1.0-7.9 [facility] Comment on above: Low PLT + [...] (Unsp spec) [Mass/Mass] 49 ug/dL Low 50-170 [facility] Iron+Iron Binding Capacityon 12-22-2024 Iron [Mass/Vol] 49 ug/dL Low 50-170 [facility] Comment on above: Performed By: #### L 300.3900, L300.4310, L101.9900, L3410.2400, L100.0500, L501.6710, L500.4050 #### [facility] [address] [place], [place], [id number] IRON SATURATION 19.7 Normal 13-59 [facility] Comment on above: Performed By: #### L 300.3900, L300.4310, L101.9900, L3410.2400, L100.0500, L501.6710, L500.4050 #### [facility] [address] [place], [address] TIBC 249 ug/dL Low 250-450 [facility] Comment on above: Performed By: #### L 300.3900, L300.4310, L101.9900, L3410.2400, L100.0500, L501.6710, L500.4050 #### [facility] [address] [place], [address] UIBC 200 ug/dL Low 228-428 [facility] Comment on above: Performed By: #### L 300.3900, L300.4310, L101.9900, L3410.2400, L100.0500, L501.6710, L500.4050 #### [facility] [address] [place], [address] Ketones Test strip Ql (U)Ord ered By: Ten Nogueira on 12-22-2024 Ketones Ql (U) Negative Negative [facility] LDHon 12-22-2024 LDH 446 U/L High 84-246 [facility] Comment on above: Order Comment: 1 Performed By: #### L 300.3900, L300.4310, L101.9900, L3410.2400, L100.0500, L501.6710, L500.4050 #### [facility] [address] [place], [address] Laboratory - Chemistry and C hemistry - challengeOrdered By: Ten Nogueira on 12-22-2024 AST [Catalytic activity/Vol] 197 U/L High <32 [facility] - Hematology and Cell countsOrdered By: Ten Nogueira on 12-22-2024 Anisocytosis Ql (Bld) 2+ [facility] Lactate dehydrogenase (LDH) measurementOrdered By: Ten Nogueira on 12-22-2024 LDH [Catalytic activity/Vol] 446 U/L High 84-246 [facility] MCV (mean corpuscular volume ) determinationOrdered By: Ten Nogueira on 12-22-2024 MCV (RBC) [Entitic vol] 99.4 fL High 81-99 [facility] Magnesiumon 12-22-2024 Magnesium [Mass/Vol] 1.8 mg/dL Normal 1.5-2.2 [facility] Comment on above: Performed By: #### L 300.3900, L300.4310, L101.9900, L3410.2400, L100.0500, L501.6710, L500.4050 #### [facility] [address] [place], [place], [id number] Magnesium measurement (mass/ volume)Ordered By: Ten Nogueira on 12-22-2024 Magnesium (Unsp spec) [Mass/Vol] 1.8 mg/dL 1.5-2.2 [facility] Mean corpuscular hemoglobin (MCH) determinationOrdered By: Ten Nogueira on 12-22-2024 MCH (RBC) [Entitic mass] 30.5 pg 27.0-32.0 [facility] Mean corpuscular hemoglobin concentration (MCHC) determinationOrdered By: Tne Nogueira on 12-22-2024 MCHC (RBC) [Mass/Vol] 30.7 g/dL Low 32-36 [facility] Mean platelet volume determi nationOrdered By: Ten Nogueira on 12-22-2024 Platelet mean volume (Bld) [Entitic vol] 10.9 fL 6.2-12.0 [facility] Microscopic analysis of urin e for red blood cells (RBC)Ordered By: Ten Nogueira on 12-22-2024 Microscopic analysis of urine for red blood cells (RBC) 0-5 SEEN /hpf 0-5 [facility] Monocyte percentageOrdered B y: Ten Nogueira on 12-22-2024 Monocytes/100 WBC (Bld) 16.0 % High 0-10 [facility] Mucus LM Ql (Urine sed)Order ed By: Ten Nogueira on 12-22-2024 Mucus Ql (Urine sed) 0 SEEN /hpf [facility] Neutrophil percentageOrdered By: Ten Nogueira on 12-22-2024 Neutrophils/100 WBC (Bld) 58.2 % 47-70 [facility] Nitrite Test strip Ql (U)Ord ered By: Ten Nogueira on 12-22-2024 Nitrite Ql (U) Positive High Negative [facility] No Panel InformationOrdered By: Ten Nogueira on 12-22-2024 HIV (1&2) Antibody Non-Reactive Nonreactive [facility] Comment on above: Non-ReactiveReactive Repeatedly reactive samples must be confirmed according to CDC recommended confirmatory algorithms. The subresults for either HIVAG or AHIV can be used as an aid in the selection of the confirmation algorithm for reactive samples.Send out specimens with Reactive results to [facility] for confirmation.Order the HIV antibody detection and differentiation: #[id number] Unsaturated Iron Binding Capacity 200 ug/dL Low 228-428 [facility] Nucleated red blood cell per centageOrdered By: Ten Nogueira on 12-22-2024 Nucleated RBC/100 WBC (Bld) [Ratio] 0.4 % 0-5 [facility] Oncology Visit Reporton 12-03 Oncology Visit Report [facility] [address] [place], [place] [address] [address] OFFICE VISIT Date of Service: 12/22/24 1424 MR#: [id number] Acct: [id number] Name: ESTELLA CHAO Rep #: [id number] : 1955 From: eTn Nogueira MD Age/Sex: 69/F Location: [facility] Status: Signed HPI Subjective Date of Service [...] estimated to be 2.6 cm in axis. [facility] Medical History (Updated 12/22/24 @ 15:04 by [...] Temperature Source (more content not included)... Normal [facility] Phosphoruson 12-22-2024 Phosphate [Mass/Vol] 2.8 mg/dL Normal 2.7-4.5 [facility] Comment on above: Performed By: #### L 300.3900, L300.4310, L101.9900, L3410.2400, L100.0500, L501.6710, L500.4050 #### [facility] [address] [place], [address] Platelet countOrdered By: Felipe Nogueira on 12-22-2024 Platelets (Bld) [#/Vol] 85 10*3/uL Low 150-450 [facility] Platelet estimateOrdered By: Ten Nogueira on 12-22-2024 Platelets LM Ql (Bld) MOD DEC ADEQ [facility] Protein Test strip Ql (U)Ord ered By: Ten Nogueira on 12-22-2024 Protein Ql (U) 30 mg/dl High Negative [facility] RBC Auto (Bld) [#/Vol]Ordere d By: Ten Nogueira on 12-22-2024 RBC (Bld) [#/Vol] 3.18 10*6/uL Low 4.2-5.4 [facility] Retic Panelon 12-22-2024 IM RET FRACTION 30.40 High 3.00-15.90 [facility] Comment on above: Performed By: #### L 300.3900, L300.4310, L101.9900, L3410.2400, L100.0500, L501.6710, L500.4050 #### [facility] [address] [place], [address] IPF 3.2 Normal 1.0-7.9 [facility] Comment on above: Result Comment: Low [...] L300.4310, L101.9900, L3410.2400, L100.0500, L501.6710, L500.4050 #### [facility] [address] [place], [address] RET-HE 34.4 pg Normal 30-35 [facility] Comment on above: Performed By: #### L 300.3900, L300.4310, L101.9900, L3410.2400, L100.0500, L501.6710, L500.4050 #### [facility] [address] [place], [address] Retic Count 3.74 High 0.5-1.5 [facility] Comment on above: Performed By: #### L 300.3900, L300.4310, L101.9900, L3410.2400, L100.0500, L501.6710, L500.4050 #### [facility] [place], [address] Reticulocyte hemoglobin equi valent (RET-He) measurementOrdered By: Ten Nogueira on 12-22-2024 Hemoglobin (Reticulocytes) [Entitic mass] 34.4 pg 30-35 [facility] Reticulocytes Auto (Bld) [#/ Vol]Ordered By: Ten Nogueira on 12-22-2024 Reticulocytes/100 RBC (Bld) 3.74 % High 0.5-1.5 [facility] Serum globulin measurementOr dered By: Ten Nogueira on 12-22-2024 Globulin (S) [Mass/Vol] 2.6 g/dL 2.2-4.2 [facility] Serum or plasma alanine baker otransferase (ALT) measurementOrdered By: Ten Nogueira on 12-22-2024 ALT [Catalytic activity/Vol] 138 U/L High <35 [facility] Serum or plasma albumin matt urement (mass/volume)Ordered By: Ten Nogueira on 12-22-2024 Albumin [Mass/Vol] 3.6 g/dL 3.4-4.8 [facility] Serum or plasma albumin/glob ulin mass ratioOrdered By: Ten Nogueira on 12-22-2024 Albumin/Globulin [Mass ratio] 1.4 {ratio} 0.9-2.4 [facility] Serum or plasma alkaline adama sphatase measurementOrdered By: Ten Nogueira on 12-22-2024 ALP [Catalytic activity/Vol] 290 U/L High 35-104 [facility] Serum or plasma ferritin claudia surement (mass/volume)Ordered By: Ten Nogueira on 12-22-2024 Ferritin [Mass/Vol] 630 ng/mL High 22-378 [facility] Serum or plasma iron saturat ion measurement (mass fraction)Ordered By: Ten Nogueira on 12-22-2024 Iron saturation [Mass fraction] 19.7 % 13-59 [facility] Squamous epithelial cells de tection in urine sediment by light microscopyOrdered By: Ten Nogueira on 12-22-2024 Epithelial cells.squamous LM Ql (Urine sed) 0-5 SEEN /hpf 5-10 [facility] Total proteinOrdered By: Ellis Nogueira on 12-22-2024 Protein [Mass/Vol] 6.2 g/dL 5.9-8.4 [facility] Urinalysis, Completeon 12-22 AMORPHOUS 2+ Normal [facility] Comment on above: Order Comment: MAGDIEL CTOR TO SPECIFY Performed By: #### L 300.3900, L300.4310, L101.9900, L3410.2400, L100.0500, L501.6710, L500.4050 #### [facility] [address] [place], [address] EPI,SQUAMOUS 0-5 SEEN Normal 07-11 [facility] Comment on above: Order Comment: MAGDIEL CTOR TO SPECIFY Performed By: #### L 300.3900, L300.4310, L101.9900, L3410.2400, L100.0500, L501.6710, L500.4050 #### [facility] [address] [place], [address] BACTERIA 2+ /hpf Normal None Seen [facility] Comment on above: Order Comment: MAGDIEL CTOR TO SPECIFY Performed By: #### L 300.3900, L300.4310, L101.9900, L3410.2400, L100.0500, L501.6710, L500.4050 #### [facility] [address] [place], [address] RBC 0-5 SEEN Normal 0-5 [facility] Comment on above: Order Comment: MAGDIEL CTOR TO SPECIFY Performed By: #### L 300.3900, L300.4310, L101.9900, L3410.2400, L100.0500, L501.6710, L500.4050 #### [facility] [address] [place], [address] WBC 10-25 SEEN Normal 0-5 [facility] Comment on above: Order Comment: MAGDIEL CTOR TO SPECIFY Performed By: #### L 300.3900, L300.4310, L101.9900, L3410.2400, L100.0500, L501.6710, L500.4050 #### [facility] [address] [place], [address] Mucus Ql (Urine sed) 0 SEEN Normal [facility] Comment on above: Order Comment: MAGDIEL CTOR TO SPECIFY Performed By: #### L 300.3900, L300.4310, L101.9900, L3410.2400, L100.0500, L501.6710, L500.4050 #### [facility] [address] [place], [place], [id number] Urine clarityOrdered By: Ellis Nogueira on 12-22-2024 Clarity (U) Cloudy Clear [facility] Urine color determinationOrd ered By: Ten Nogueira on 12-22-2024 Color (U) Yellow Yellow [facility] Urine cultureOrdered By: Ellis Nogueira on 12-22-2024 Bacteria identified Cx Nom (U) Presumptive E. coli Abnormal [facility] Urine glucose detectionOrder ed By: Ten Nogueira on 12-22-2024 Glucose Ql (U) Normal mg/dl Normal [facility] Urine leukocyte esterase det ection by dipstickOrdered By: Ten Nogueira on 12-22-2024 Leukocyte esterase Test strip Ql (U) 25 /ul High Negative [facility] Urine pHOrdered By: Ten Nogueira on 12-22-2024 pH (U) 6.0 [pH] 5.0 - 8.0 [facility] Urine sediment bacteria coun t by microscopy (number/high power field)Ordered By: Ten Nogueira on 12-22-2024 Bacteria LM.HPF (Urine sed) [#/Area] 2 /[HPF] None Seen [facility] Urine specific gravity measu rementOrdered By: Ten Nogueira on 12-22-2024 Specific gravity (U) [Rel density] 1.020 1.002-1.030 [facility] Urine urobilinogen measureme ntOrdered By: Ten Nogueira on 12-22-2024 Urobilinogen Ql (U) Normal mg/dl Normal [facility] Vitamin B12on 12-22-2024 Cobalamin (Vitamin B12) [Mass/Vol] 896 pg/mL Normal 180-914 [facility] Comment on above: Performed By: #### L 300.3900, L300.4310, L101.9900, L3410.2400, L100.0500, L501.6710, L500.4050 #### [facility] [address] [place], [address] Vitamin B12 ser/plasOrdered By: Ten Nogueira on 12-22-2024 Cobalamin (Vitamin B12) [Mass/Vol] 896 pg/mL 180-914 [facility] White blood cell (WBC) count Ordered By: Ten Nogueira on 12-22-2024 WBC (Bld) [#/Vol] 5.2 10*3/uL 4.4-11.0 [facility] White blood cell countOrdere d By: Ten Nogueira on 12-22-2024 White blood cell count 10-25 SEEN /hpf 0-5 [facility] MRI LIVERon 12-18-2024 MRI LIVER ORIGINAL [...] 9:28:43 AM Ordering Provider: RANJITH LING Normal [facility] Absolute lymphocyte countOrd ered By: Crispin Subramanian on 12-07-2024 Lymphocytes Auto (Unsp spec) [#/Vol] 0.81 10*3/uL Low 0.83-4.51 [facility] Absolute neutrophil countOrd ered By: Crispinnakita Subramanian on 12-07-2024 Neutrophils (Bld) [#/Vol] 2.9 10*3/uL 2.0-7.7 [facility] Anion gap in Serum or Plasma Ordered By: Crispinnakita Subramanian on 12-07-2024 Anion gap [Moles/Vol] 15 mmol/L 5-15 [facility] Automated lymphocyte count a s percentage of total leukocytesOrdered By: Crispinnakita Subramanian on 12-07-2024 Lymphocytes/100 WBC Auto (Unsp spec) 17.7 % Low 19-41 [facility] BUN/creatinine ratioOrdered By: Crispinnakita Subramanian on 12-07-2024 Urea nitrogen/Creatinine [Mass ratio] 22.6 mg/mg High 10-20 [facility] Basophil percentageOrdered B y: Crispinnakita Subramanian on 12-07-2024 Basophils/100 WBC (Bld) 1.5 % High 0-1 [facility] Bilirubin, totalOrdered By: Crispinnakita Subramanian on 12-07-2024 Bilirubin [Mass/Vol] 0.73 mg/dL 0.00-1.30 [facility] CBC W/Diff, Automatedon 10-0 PLT EST MOD DEC Normal ADEQ [facility] Comment on above: Performed By: #### L 300.3900, L300.4310, L101.9900, L3410.2400, L100.0500, L501.6710, L500.4050 #### [facility] [address] [place], [address] CRPon 12-07-2024 C-REACTIVE PROT 56.00 mg/L High 0.0-3.0 [facility] Comment on above: Performed By: #### L 300.3900, L300.4310, L101.9900, L3410.2400, L100.0500, L501.6710, L500.4050 #### [facility] [address] [place], [address] Carbon dioxide, total [Moles /volume] in Central venous bloodOrdered By: Crispinnakita Subramanian on 12-07-2024 CO2 [Moles/Vol] 25.6 mmol/L 21.0-32.0 [facility] Chloride assayOrdered By: Ug o Subramanian on 12-07-2024 Chloride [Moles/Vol] 101 mmol/L 98-108 [facility] Comprehensive Metabolic Prof ilon 12-07-2024 Albumin [Mass/Vol] 3.4 g/dL Normal 3.4-4.8 [facility] Comment on above: Performed By: #### L 300.3900, L300.4310, L101.9900, L3410.2400, L100.0500, L501.6710, L500.4050 #### [facility] [address] [place], [address] Albumin/Globulin [Mass ratio] 1.2 {ratio} Normal 0.9-2.4 [facility] Comment on above: Performed By: #### L 300.3900, L300.4310, L101.9900, L3410.2400, L100.0500, L501.6710, L500.4050 #### [facility] [address] [place], [address] ALK PHOS 189 U/L High 35-104 [facility] Comment on above: Performed By: #### L 300.3900, L300.4310, L101.9900, L3410.2400, L100.0500, L501.6710, L500.4050 #### [facility] [address] [place], [address] ALT [Catalytic activity/Vol] 99 U/L High <=34 [facility] Comment on above: Performed By: #### L 300.3900, L300.4310, L101.9900, L3410.2400, L100.0500, L501.6710, L500.4050 #### [facility] [address] [place], [address] AST [Catalytic activity/Vol] 121 U/L High <=31 [facility] Comment on above: Performed By: #### L 300.3900, L300.4310, L101.9900, L3410.2400, L100.0500, L501.6710, L500.4050 #### [facility] [address] [place], [address] Bilirubin [Mass/Vol] 0.73 mg/dL Normal 0.00-1.30 [facility] Comment on above: Performed By: #### L 300.3900, L300.4310, L101.9900, L3410.2400, L100.0500, L501.6710, L500.4050 #### [facility] [address] [place], [address] BUN/CRE 22.6 RATIO High 10-20 [facility] Comment on above: Performed By: #### L 300.3900, L300.4310, L101.9900, L3410.2400, L100.0500, L501.6710, L500.4050 #### [facility] [address] [place], [address] Calcium [Mass/Vol] 10.6 mg/dL Normal 7.6-11.0 [facility] Comment on above: Performed By: #### L 300.3900, L300.4310, L101.9900, L3410.2400, L100.0500, L501.6710, L500.4050 #### [facility] [address] [place], [address] Chloride [Moles/Vol] 101 mmol/L Normal 98-108 [facility] Comment on above: Performed By: #### L 300.3900, L300.4310, L101.9900, L3410.2400, L100.0500, L501.6710, L500.4050 #### [facility] [address] [place], [address] CO2 [Moles/Vol] 25.6 mmol/L Normal 21.0-32.0 [facility] Comment on above: Performed By: #### L 300.3900, L300.4310, L101.9900, L3410.2400, L100.0500, L501.6710, L500.4050 #### [facility] [address] [place], [address] Creatinine [Mass/Vol] 1.25 mg/dL High 0.70-1.20 [facility] Comment on above: Performed By: #### L 300.3900, L300.4310, L101.9900, L3410.2400, L100.0500, L501.6710, L500.4050 #### [facility] [address] [place], [address] ECRCL 1.68 ml/min Invalid Interpretation Code 50-250 [facility] Comment on above: Performed By: #### L 300.3900, L300.4310, L101.9900, L3410.2400, L100.0500, L501.6710, L500.4050 #### [facility] [address] [place], [address] GAP 15 Normal 5-15 [facility] Comment on above: Performed By: #### L 300.3900, L300.4310, L101.9900, L3410.2400, L100.0500, L501.6710, L500.4050 #### [facility] [address] [place], [address] GFR/1.73 sq M.predicted among non-blacks MDRD (S/P/Bld) [Vol rate/Area] 47 mL/min/{1.73_m2} Low >60 [facility] Comment on above: Result Comment: mL/m in/1.73m2 CKD-EPI Creatinine Equation (2020) Performed By: #### L 300.3900, L300.4310, L101.9900, L3410.2400, L100.0500, L501.6710, L500.4050 #### [facility] [address] [place], [address] Globulin (S) [Mass/Vol] 2.9 g/dL Normal 2.2-4.2 [facility] Comment on above: Performed By: #### L 300.3900, L300.4310, L101.9900, L3410.2400, L100.0500, L501.6710, L500.4050 #### [facility] [address] [place], [address] Glucose [Mass/Vol] 90 mg/dL Normal 70-99 [facility] Comment on above: Performed By: #### L 300.3900, L300.4310, L101.9900, L3410.2400, L100.0500, L501.6710, L500.4050 #### [facility] [address] [place], [address] Potassium [Moles/Vol] 3.9 mmol/L Normal 3.3-5.1 [facility] Comment on above: Performed By: #### L 300.3900, L300.4310, L101.9900, L3410.2400, L100.0500, L501.6710, L500.4050 #### [facility] [address] [place], [address] Sodium [Moles/Vol] 142 mmol/L Normal 133-145 [facility] Comment on above: Performed By: #### L 300.3900, L300.4310, L101.9900, L3410.2400, L100.0500, L501.6710, L500.4050 #### [facility] [address], [address] T PROT 6.3 g/dL Normal 5.9-8.4 [facility] Comment on above: Performed By: #### L 300.3900, L300.4310, L101.9900, L3410.2400, L100.0500, L501.6710, L500.4050 #### [facility] [address] [place], [address] Urea nitrogen [Mass/Vol] 28 mg/dL High 4-19 [facility] Comment on above: Performed By: #### L 300.3900, L300.4310, L101.9900, L3410.2400, L100.0500, L501.6710, L500.4050 #### [facility] [address] [place], [address] Emergency Department Summary on 12-07-2024 Emergency Department Summary [facility] Medical Records Department [address] [place] [address] Emergency Department Summary 12/07/24 MR#: [id number] Acct: [id number] Name: ESTELLA CHAO Rep #: [id number] : [id number] 68 From: Crispin Subramanian MD 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 She was seen at [facility]. Patient is scheduled for an MRI this [...] tightness or heaviness. She denies dyspnea or [place] exertion. Denies orthopnea or PND. She does report swelling of her ankles recently. Patient has no history of alcohol use or cirrhosis. Prior similar symptoms: Yes Recent Illness/Hospitalizati on: Yes (Seen by PCP approximately 2 weeks ago. Her creatinine at that time was ely) [facility] Medical History Depression Emphysema lung COPD (chronic [...] QDAY FOR ENERGY 11/26/24 12/06/24 History mv-mn [id number] sh 1 tab PO DAILY SUPPLEMENT 12/07/24 [...] documented EXAM (more content not included)... Normal [facility] Eosinophil percentageOrdered By: Crispin Subramanian on 12-07-2024 Eosinophils/100 WBC (Bld) 1.1 % 0-5 [facility] Erythrocyte Sed Rateon 12-07 SED RATE 8 mm/hr Normal 0-30 [facility] Comment on above: Performed By: #### L 300.3900, L501.6710, L101.9900, L500.4050, L100.0100 #### [facility] [address] [place], [place], [address] Erythrocyte distribution wid th ratioOrdered By: Crispin Subramanian on 12-07-2024 Erythrocyte distribution width (RBC) [Ratio] 17.1 % High 11.6-14.6 [facility] Erythrocyte distribution wid th standard deviationOrdered By: Crispin Subramanian on 12-07-2024 Erythrocyte distribution width (RBC) [Ratio] 59.6 fl High 35.1-43.9 [facility] Erythrocyte sedimentation ra teOrdered By: Crispin Subramanian on 12-07-2024 ESR (Bld) [Velocity] 8 mm/h 0-30 [facility] Glomerular filtration rate ( GFR) estimation/1.73 sq m using serum, plasma, or whole bOrdered By: Crispin Subramanian on 12-07-2024 GFR/1.73 sq M.predicted among non-blacks MDRD (S/P/Bld) [Vol rate/Area] 47 mL/min/{1.73_m2} Low >60 [facility] Comment on above: mL/min/1.73m2 CKD-EP I Creatinine Equation (2020) Hematocrit Auto (Bld) [Volum e fraction]Ordered By: Crispin Subramanian on 12-07-2024 Hematocrit (Bld) [Volume fraction] 30.5 % Low 37-47 [facility] Hemoglobin measurementOrdere d By: Crispin Subramanian on 12-07-2024 Hemoglobin (Bld) [Mass/Vol] 9.4 g/dL Low 12.0-15.0 [facility] Immature granulocytes/100 WB C Auto (Bld)Ordered By: Crispin Subramanian on 12-07-2024 Immature granulocytes/100 WBC (Bld) 0.700 % 0.0-0.9 [facility] Comment on above: IG% - Immature Granu locytes (promyelocytes, myelocytes and metamyelocytes) > 1% indicates that a LEFT SHIFT is Present. International normalized rat io (INR) calculationOrdered By: Crispin Subramanian on 12-07-2024 INR Coag (Bld) [Relative time] 1.0 {INR} [facility] - Chemistry and C hemistry - challengeOrdered By: Crispin Subramanian on 12-07-2024 AST [Catalytic activity/Vol] 121 U/L High <32 [facility] MCV (mean corpuscular volume ) determinationOrdered By: Crispin Subramanian on 12-07-2024 MCV (RBC) [Entitic vol] 97.1 fL 81-99 [facility] Mean corpuscular hemoglobin (MCH) determinationOrdered By: Crispin Subramanian on 12-07-2024 MCH (RBC) [Entitic mass] 29.9 pg 27.0-32.0 [facility] Mean corpuscular hemoglobin concentration (MCHC) determinationOrdered By: Crispin Subramanian on 12-07-2024 MCHC (RBC) [Mass/Vol] 30.8 g/dL Low 32-36 [facility] Mean platelet volume determi nationOrdered By: Crispin Subramanian on 12-07-2024 Platelet mean volume (Bld) [Entitic vol] 10.7 fL 6.2-12.0 [facility] Monocyte percentageOrdered B y: Crispin Subramanian on 12-07-2024 Monocytes/100 WBC (Bld) 15.3 % High 0-10 [facility] Neutrophil percentageOrdered By: Crispin Subramanian on 12-07-2024 Neutrophils/100 WBC (Bld) 63.7 % 47-70 [facility] Nucleated red blood cell per centageOrdered By: Crispin Subramanian on 12-07-2024 Nucleated RBC/100 WBC (Bld) [Ratio] 0 % 0-5 [facility] Platelet countOrdered By: Rex Subramanian on 12-07-2024 Platelets (Bld) [#/Vol] 88 10*3/uL Low 150-450 [facility] Platelet estimateOrdered By: Crispin Subramanian on 12-07-2024 Platelets LM Ql (Bld) MOD DEC ADEQ [facility] Potassium measurement (mass/ volume)Ordered By: Crispin Subramanian on 12-07-2024 Potassium (Unsp spec) [Mass/Vol] 3.9 mmol/L 3.3-5.1 [facility] Prothrombin Time w/INRon INR Coag (PPP) [Relative time] 1.0 {INR} Normal [facility] Comment on above: Performed By: #### L 300.3900, L501.6710, L101.9900, L500.4050, L100.0100 #### [facility] [address] [place], [address] PT Coag (PPP) [Time] 13.5 s Normal 11.7-14.9 [facility] Comment on above: Performed By: #### L 300.3900, L501.6710, L101.9900, L500.4050, L100.0100 #### [facility] [address] [place], [address] Prothrombin timeOrdered By: Crispin Subramanian on 12-07-2024 PT Coag (PPP) [Time] 13.5 s 11.7-14.9 [facility] RBC Auto (Bld) [#/Vol]Ordere d By: Crispin Subramanian on 12-07-2024 RBC (Bld) [#/Vol] 3.14 10*6/uL Low 4.2-5.4 [facility] Serum creatinine measurement (mass/volume)Ordered By: Crispin Subramanian on 12-07-2024 Creatinine [Mass/Vol] 1.25 mg/dL High 0.70-1.20 [facility] Serum globulin measurementOr dered By: Crispin Subramanian on 12-07-2024 Globulin (S) [Mass/Vol] 2.9 g/dL 2.2-4.2 [facility] Serum glucose measurement (m ass/volume)Ordered By: Crispin Subramanian on 12-07-2024 Glucose [Mass/Vol] 90 mg/dL 70-99 [facility] Serum or plasma C reactive p rotein measurement (mass/volume)Ordered By: Crispin Subramanian on 12-07-2024 CRP [Mass/Vol] 56.00 mg/L High 0.0-3.0 [facility] Serum or plasma alanine baker otransferase (ALT) measurementOrdered By: Crispin Subramanian on 12-07-2024 ALT [Catalytic activity/Vol] 99 U/L High <35 [facility] Serum or plasma albumin matt urement (mass/volume)Ordered By: Crispin Subramanian on 12-07-2024 Albumin [Mass/Vol] 3.4 g/dL 3.4-4.8 [facility] Serum or plasma albumin/glob ulin mass ratioOrdered By: Crispin Subramanian on 12-07-2024 Albumin/Globulin [Mass ratio] 1.2 {ratio} 0.9-2.4 [facility] Serum or plasma alkaline adama sphatase measurementOrdered By: Crispin Subramanian on 12-07-2024 ALP [Catalytic activity/Vol] 189 U/L High 35-104 [facility] Serum or plasma calcium matt urement (mass/volume)Ordered By: Crispin Subramanian on 12-07-2024 Calcium [Mass/Vol] 10.6 mg/dL 7.6-11.0 [facility] Serum or plasma urea nitroge n measurement (mass/volume)Ordered By: Crispin Subramanian on 12-07-2024 Urea nitrogen [Mass/Vol] 28 mg/dL High 4-19 [facility] Sodium levelOrdered By: Crispin Subramanian on 12-07-2024 Sodium [Moles/Vol] 142 mmol/L 133-145 [facility] Total proteinOrdered By: Crispin Subramanian on 12-07-2024 Protein [Mass/Vol] 6.3 g/dL 5.9-8.4 [facility] White blood cell (WBC) count Ordered By: Crispin Subramanian on 12-07-2024 WBC (Bld) [#/Vol] 4.6 10*3/uL 4.4-11.0 [facility] AATon 11-26-2024 [id number]-7-[id number] 259 mg/dL High 101-187 [facility] Comment on above: Result Comment: Perf ormed At: [place] [id number] [place], [place] [id number] Miguelangel Decker PhD Ph:[phone] Performed By: #### G GT, HBSAG, HBCM, HCV1 #### [place] [address] #### CBC, ESR, LD, 537963, ANEU, CMP, GFR, URIC, ADIFF, ANAIFS #### [address] [address] ENDOon 11-26-2024 tTG IgA 3 units/ml Normal 0-3 [facility] Comment on above: Result Comment: Nega tive 0 - 3 Weak Positive 4 - 10 Positive >10 Tissue Transglutaminase (tTG) has been identified as the endomysial antigen. Studies have demonstr- ated that endomysial IgA antibodies have over 99% specificity for gluten sensitive enteropathy. Performed At: [facility] [address] [place], [place] [id number] Miguelangel Decker PhD Ph:[phone] Performed By: #### G GT, HBSAG, HBCM, HCV1 #### [place] [address] #### CBC, ESR, LD, 685204, ANEU, CMP, GFR, URIC, ADIFF, ANAIFS #### [address] [address] GLIADon 11-26-2024 Deam Gliad IgA Abs 5 units Normal 0-19 [facility] Comment on above: Result Comment: Nega tive 0 - 19 Weak Positive 20 - 30 Moderate to Strong Positive >30 Performed By: #### G GT, HBSAG, HBCM, HCV1 #### [address] [address] #### CBC, ESR, LD, 919269, ANEU, CMP, GFR, URIC, ADIFF, ANAIFS #### [address] [address] Deam Gliad IgG Abs 12 units Normal 0-19 [facility] Comment on above: Result Comment: Nega tive 0 - 19 Weak Positive 20 - 30 Moderate to Strong Positive >30 Performed At: [facility] [address] [place] [id number] Miguelangel Decker PhD Ph:[phone] Performed By: #### G GT, HBSAG, HBCM, HCV1 #### [place] [address] #### CBC, ESR, LD, 586148, ANEU, CMP, GFR, URIC, ADIFF, ANAIFS #### [place] [id number] ANAIFSon 11-25-2024 Antinuclear Ab Screen Negative Normal Negative [facility] Comment on above: Result Comment: Anti -nuclear antibody test is used as an aid in diagnosis of systemic autoimmune diseases. Where positive and clinically warranted, follow-up using disease-specific testing is recommended. Low positive titers are not uncommon with advanced age, certain chronic infections, and malignancies among others. Test methodology: Indirect fluorescence immunoassay (IFA) using HEp-2 cells. Performed By: [facility] [address] [place] [address] Dioramist: Sukhdev Velazquez III, M.D. CLIA#: [id number] Performed By: #### G GT, HBSAG, HBCM, HCV1 #### [place] [address] #### CBC, ESR, LD, 740291, ANEU, CMP, GFR, URIC, ADIFF, ANAIFS #### [address] [address] ENA1on 11-25-2024 Centromere <0.2 Normal <1.0 [facility] Comment on above: Result Comment: Anti -centromere antibody is used as in aid in diagnosis of systemic sclerosis. Clinical correlation is required. Test Methodology: Multiplex flow immunoassay. Performed By: [facility] [place] [facility] [place] [address] Dioramist: Sukhdev Velazquez III, M.D. CLIA#: [id number] Performed By: #### G GT, HBSAG, HBCM, HCV1 #### [place] [address] #### CBC, ESR, LD, 251165, ANEU, CMP, GFR, URIC, ADIFF, ANAIFS #### [address] [address] Centromere Ab Qualitative Negative Normal Negative [facility] Comment on above: Result Comment: Perf ormed By: [place] [address] Dioramist: Sukhdev Velazquez III, M.D. CLIA#: [id number] Performed By: #### G GT, HBSAG, HBCM, HCV1 #### [place] [address] #### CBC, ESR, LD, 860693, ANEU, CMP, GFR, URIC, ADIFF, ANAIFS #### [address] [address] Chromatin Ab Qualitative Negative Normal Negative [facility] Comment on above: Result Comment: Perf ormed By: [place] [address] Dioramist: Sukhdev Velazquez III, M.D. CLIA#: [id number] Performed By: #### G GT, HBSAG, HBCM, HCV1 #### [place] [address] #### CBC, ESR, LD, 592813, ANEU, CMP, GFR, URIC, ADIFF, ANAIFS #### [address] [address] Chromatin Antibody <0.2 Normal <1.0 [facility] Comment on above: Result Comment: Test Methodology: Multiplex flow immunoassay. Anti-chromatin antibody is used as an aid in diagnosis of systemic lupus erythematosus. Clinical correlation is required. Test Methodology: Multiplex flow immunoassay. Performed By: [facility] [place] [address] [place] [address] Dioramist: Sukhdev Velazquez III, M.D. CLIA#: [id number] Performed By: #### G GT, HBSAG, HBCM, HCV1 #### [address] [address] #### CBC, ESR, LD, 328884, ANEU, CMP, GFR, URIC, ADIFF, ANAIFS #### [address] [address] ABI 1 Antibody <0.2 Normal <1.0 [facility] Comment on above: Result Comment: Perf ormed By: [place] [address] Dioramist: Sukhdev Velazquez III, M.D. CLIA#: [id number] Performed By: #### G GT, HBSAG, HBCM, HCV1 #### [place] [address] #### CBC, ESR, LD, 593974, ANEU, CMP, GFR, URIC, ADIFF, ANAIFS #### [address] [address] ABI 1 Antibody Qual Negative Normal Negative [facility] Comment on above: Result Comment: Anti -ABI-1 antibody is used as an aid in diagnosis of polymyositis and dermatomyositis especially with pulmonary involvement. A negative result cannot rule out polymyositis or dermatomyositis. Clinical correlation is required. Test Methodology: Multiplex flow immunoassay. Performed By: [place] [address] Dioramist: Sukhdev Velazquez III, M.D. CLIA#: [id number] Performed By: #### G GT, HBSAG, HBCM, HCV1 #### [place] [address] #### CBC, ESR, LD, 974637, ANEU, CMP, GFR, URIC, ADIFF, ANAIFS #### [address] [address] Ribosomal NUMERICAL CONTROL MACHINE TOOL OPERATOR <0.2 Normal <1.0 [facility] Comment on above: Result Comment: Perf ormed By: [place] [address] Dioramist: Sukhdev Velazquez III, M.D. CLIA#: [id number] Performed By: #### G GT, HBSAG, HBCM, HCV1 #### [place] [address] #### CBC, ESR, LD, 904258, ANEU, CMP, GFR, URIC, ADIFF, ANAIFS #### [address] [address] Ribosomal NUMERICAL CONTROL MACHINE TOOL OPERATOR Qualitative Negative Normal Negative [facility] Comment on above: Result Comment: Anti -Ribosomal RNA (Ribosomal P) antibody is used as an aid in diagnosis of systemic autoimmune diseases especially systemic lupus erythematosus and mixed connective tissue disease. Cross-reactivity with Anti-[place] antibody is not uncommon. Clinical correlation is required. Test Methodology: Multiplex flow immunoassay. Performed By: [facility] [place] [address] [place] [address] Dioramist: Sukhdev Velazquez III, M.D. CLIA#: [id number] Performed By: #### G GT, HBSAG, HBCM, HCV1 #### [place] [address] #### CBC, ESR, LD, 389033, ANEU, CMP, GFR, URIC, ADIFF, ANAIFS #### [address] [address] NUMERICAL CONTROL MACHINE TOOL OPERATOR Antibody <0.2 Normal <1.0 [facility] Comment on above: Result Comment: Anti -NUMERICAL CONTROL MACHINE TOOL OPERATOR antibody is used as an aid in diagnosis of systemic autoimmune diseases especially systemic lupus erythematosus and mixed connective tissue disease. Cross-reactivity with Anti-m[place] antibody is not uncommon. Clinical correlation is required. Test Methodology: Multiplex flow immunoassay. Performed By: [facility] [place] [address] [place] [address] Dioramist: Sukhdev Velazquez III, M.D. CLIA#: [id number] Performed By: #### G GT, HBSAG, HBCM, HCV1 #### [place] [address] #### CBC, ESR, LD, 440311, ANEU, CMP, GFR, URIC, ADIFF, ANAIFS #### [address] [address] NUMERICAL CONTROL MACHINE TOOL OPERATOR Antibody Qualitative Negative Normal Negative [facility] Comment on above: Result Comment: Perf ormed By: [place] [address] Dioramist: Sukhdev Velazquez III, M.D. CLIA#: [id number] Performed By: #### G GT, HBSAG, HBCM, HCV1 #### [place] [address] #### CBC, ESR, LD, 779999, ANEU, CMP, GFR, URIC, ADIFF, ANAIFS #### [place] [address] Scleroderma Ab, IgG Qualitative Negative Normal Negative [facility] Comment on above: Result Comment: Perf ormed By: [place] [address] Dioramist: Sukhdev Velazquez III, M.D. CLIA#: [id number] Performed By: #### G GT, HBSAG, HBCM, HCV1 #### [place] [address] #### CBC, ESR, LD, 633085, ANEU, CMP, GFR, URIC, ADIFF, ANAIFS #### [place] [address] Scleroderma IgG Ab <0.2 Normal <1.0 [facility] Comment on above: Result Comment: Scl- 70/Scleroderma antibody test is used as an aid in diagnosis of systemic sclerosis especially the diffuse cutaneous form. A negative result cannot rule out systemic sclerosis. The final interpretation should consider clinical picture and other test results such as anti-centromere antibody. Test Methodology: Multiplex flow immunoassay. Performed By: [place] [address] Dioramist: Sukhdev Velazquez III, M.D. CLIA#: [id number] Performed By: #### G GT, HBSAG, HBCM, HCV1 #### [place] [address] #### CBC, ESR, LD, 724925, ANEU, CMP, GFR, URIC, ADIFF, ANAIFS #### [place] [address] Sm Antibody <0.2 Normal <1.0 [facility] Comment on above: Result Comment: Perf ormed By: [place] [address] Dioramist: Sukhdev Velazquez III, M.D. CLIA#: [id number] Performed By: #### G GT, HBSAG, HBCM, HCV1 #### [place] [address] #### CBC, ESR, LD, 109104, ANEU, CMP, GFR, URIC, ADIFF, ANAIFS #### [place] [address] Sm Antibody Qual Negative Normal Negative [facility] Comment on above: Result Comment: Anti -Sm ([place]) antibody is used as an aid in diagnosis of systemic lupus erythematosus and its presence is associated with renal disease. A negative result cannot rule out systemic lupus erythematosus. Clinical correlation is required. Test Methodology: Multiplex flow immunoassay. Performed By: [place] [address] Dioramist: Sukhdev Velazquez III, M.D. CLIA#: [id number] Performed By: #### G GT, HBSAG, HBCM, HCV1 #### [place] [address] #### CBC, ESR, LD, 762923, ANEU, CMP, GFR, URIC, ADIFF, ANAIFS #### [place] [address] SS-A Antibody <0.2 Normal <1.0 [facility] Comment on above: Result Comment: Test Methodology: Multiplex flow immunoassay. Anti-SSA (anti-Ro) antibody is used as an aid in diagnosis of a variety of systemic autoimmune diseases, Sjogren's syndrome among others. Clinical correlation is required. Test Methodology: Multiplex flow immunoassay. Performed By: [place] [address] Dioramist: Sukhdev Velazquez III, M.D. CLIA#: [id number] Performed By: #### G GT, HBSAG, HBCM, HCV1 #### [place] [address] #### CBC, ESR, LD, 465702, ANEU, CMP, GFR, URIC, ADIFF, ANAIFS #### [address] [address] SS-B Antibody <0.2 Normal <1.0 [facility] Comment on above: Result Comment: Anti -SSB (anti-La) antibody is used as an aid in diagnosis of a variety of systemic autoimmune diseases, especially for Sjogren's syndrome and systemic lupus erythematosus. Clinical correlation is required. Test Methodology: Multiplex flow immunoassay. Performed By: [place] [address] Dioramist: Sukhdev Velazquez III, M.D. CLIA#: [id number] Performed By: #### G GT, HBSAG, HBCM, HCV1 #### [place] [address] #### CBC, ESR, LD, 115203, ANEU, CMP, GFR, URIC, ADIFF, ANAIFS #### [address] [address] SSA Antibody Qualitative Negative Normal Negative [facility] Comment on above: Result Comment: Perf ormed By: [place] [address] Dioramist: Sukhdev Velazquez III, M.D. CLIA#: [id number] Performed By: #### G GT, HBSAG, HBCM, HCV1 #### [place] [address] #### CBC, ESR, LD, 573856, ANEU, CMP, GFR, URIC, ADIFF, ANAIFS #### [address] [address] SSB Antibody Qualitative Negative Normal Negative [facility] Comment on above: Result Comment: Perf ormed By: [place] [address] Dioramist: Sukhdev Velazquez III, M.D. CLIA#: [id number] Performed By: #### G GT, HBSAG, HBCM, HCV1 #### [place] [address] #### CBC, ESR, LD, 814328, ANEU, CMP, GFR, URIC, ADIFF, ANAIFS #### [address] [address] .Auto Diffon 11-24-2024 Basophil, Absolute 0.1 10 3/mcL Normal 0.0-0.[address] [facility] Comment on above: Performed By: #### G GT, HBSAG, HBCM, HCV1 #### [place] [address] #### CBC, ESR, LD, 422360, ANEU, CMP, GFR, URIC, ADIFF, ANAIFS #### [address] [address] Basophils/100 WBC (Bld) 1.1 % Normal 0.0-2.5 [facility] Comment on above: Performed By: #### G GT, HBSAG, HBCM, HCV1 #### [place] [address] #### CBC, ESR, LD, 167725, ANEU, CMP, GFR, URIC, ADIFF, ANAIFS #### [address] [address] Eosinophil, Absolute 0.0 10 3/mcL Normal 0.0-0.7 [facility] Comment on above: Performed By: #### G GT, HBSAG, HBCM, HCV1 #### [place] [address] #### CBC, ESR, LD, 082566, ANEU, CMP, GFR, URIC, ADIFF, ANAIFS #### [address] [address] Eosinophils/100 WBC (Bld) 0.6 % Normal 0.0-6.0 [facility] Comment on above: Performed By: #### G GT, HBSAG, HBCM, HCV1 #### [place] [address] #### CBC, ESR, LD, 419556, ANEU, CMP, GFR, URIC, ADIFF, ANAIFS #### [address] [address] Lymphocyte, Absolute 0.9 10 3/mcL Normal 0.9-4.3 [facility] Comment on above: Performed By: #### G GT, HBSAG, HBCM, HCV1 #### [place] [address] #### CBC, ESR, LD, 482150, ANEU, CMP, GFR, URIC, ADIFF, ANAIFS #### [address] [address] Lymphocytes/100 WBC (Bld) 17.5 % Low 20.0-40.0 [facility] Comment on above: Performed By: #### G GT, HBSAG, HBCM, HCV1 #### [place] [address] #### CBC, ESR, LD, 811175, ANEU, CMP, GFR, URIC, ADIFF, ANAIFS #### [address] [address] Monocyte, Absolute 0.6 10 3/mcL Normal 0.1-1.[address] [facility] Comment on above: Performed By: #### G GT, HBSAG, HBCM, HCV1 #### [place] [address] #### CBC, ESR, LD, 359333, ANEU, CMP, GFR, URIC, ADIFF, ANAIFS #### [address] [address] Monocytes/100 WBC (Bld) 11.9 % Normal 2.0-13.0 [facility] Comment on above: Performed By: #### G GT, HBSAG, HBCM, HCV1 #### [place] [address] #### CBC, ESR, LD, 762261, ANEU, CMP, GFR, URIC, ADIFF, ANAIFS #### [address] [address] Neutrophils/100 WBC (Bld) 68.9 % Normal 50.0-75.0 [facility] Comment on above: Performed By: #### G GT, HBSAG, HBCM, HCV1 #### [address] [address] #### CBC, ESR, LD, 863141, ANEU, CMP, GFR, URIC, ADIFF, ANAIFS #### [address] [address] .GFRon 11-24-2024 Estimated Glomerular Filtration Rate 36 ml/min/1.73sqm Normal [facility] Comment on above: Result Comment: Stages of [...] #### G GT, HBSAG, HBCM, HCV1 #### [address] [address] #### CBC, ESR, LD, 698100, ANEU, CMP, GFR, URIC, ADIFF, ANAIFS #### [address] [address] .NEUABSon 11-24-2024 Neutrophil, Absolute 3.5 10 3/mcL Normal 2.3-8.1 [facility] Comment on above: Performed By: #### G GT, HBSAG, HBCM, HCV1 #### [address] [address] #### CBC, ESR, LD, 036916, ANEU, CMP, GFR, URIC, ADIFF, ANAIFS #### [address] [address] AMYon 11-24-2024 Amylase [Catalytic activity/Vol] 57 U/L Normal 25-115 [facility] Comment on above: Performed By: #### G GT, HBSAG, HBCM, HCV1 #### [address] [address] #### CBC, ESR, LD, 225847, ANEU, CMP, GFR, URIC, ADIFF, ANAIFS #### [address] [address] [facility] 11-24-2024 Erythrocyte distribution width (RBC) [Ratio] 16.7 % High 11.5-15.5 [facility] Comment on above: Performed By: #### G GT, HBSAG, HBCM, HCV1 #### [address] [address] #### CBC, ESR, LD, 697635, ANEU, CMP, GFR, URIC, ADIFF, ANAIFS #### [address] [address] Hematocrit (Bld) [Volume fraction] 30.3 % Low 34.0-46.0 [facility] Comment on above: Performed By: #### G GT, HBSAG, HBCM, HCV1 #### [address] [address] #### CBC, ESR, LD, 785848, ANEU, CMP, GFR, URIC, ADIFF, ANAIFS #### [address] [address] Hgb 10.1 G/dL Low 12.0-16.0 [facility] Comment on above: Performed By: #### G GT, HBSAG, HBCM, HCV1 #### [address] [address] #### CBC, ESR, LD, 600511, ANEU, CMP, GFR, URIC, ADIFF, ANAIFS #### [address] [address] MCH (RBC) [Entitic mass] 30.4 pg Normal 27.0-33.0 [facility] Comment on above: Performed By: #### G GT, HBSAG, HBCM, HCV1 #### [address] [address] #### CBC, ESR, LD, 271624, ANEU, CMP, GFR, URIC, ADIFF, ANAIFS #### [address] [address] MCHC 33.5 G/dL Normal 32.0-36.0 [facility] Comment on above: Performed By: #### G GT, HBSAG, HBCM, HCV1 #### [place] [address] #### CBC, ESR, LD, 758166, ANEU, CMP, GFR, URIC, ADIFF, ANAIFS #### [address] [address] MCV (RBC) [Entitic vol] 90.7 fL Normal 80.0-99.0 [facility] Comment on above: Performed By: #### G GT, HBSAG, HBCM, HCV1 #### [place] [address] #### CBC, ESR, LD, 316215, ANEU, CMP, GFR, URIC, ADIFF, ANAIFS #### [address] [address] Platelet 112 10 3/mcL Low 150-450 [facility] Comment on above: Performed By: #### G GT, HBSAG, HBCM, HCV1 #### [place] [address] #### CBC, ESR, LD, 811156, ANEU, CMP, GFR, URIC, ADIFF, ANAIFS #### [address] [address] Platelet mean volume (Bld) [Entitic vol] 8.5 fL Normal 6.6-10.5 [facility] Comment on above: Performed By: #### G GT, HBSAG, HBCM, HCV1 #### [place] [address] #### CBC, ESR, LD, 773275, ANEU, CMP, GFR, URIC, ADIFF, ANAIFS #### [address] [address] RBC 3.34 10 6/mcL Low 4.10-5.30 [facility] Comment on above: Performed By: #### G GT, HBSAG, HBCM, HCV1 #### [place] [address] #### CBC, ESR, LD, 762396, ANEU, CMP, GFR, URIC, ADIFF, ANAIFS #### [address] [address] WBC 5.1 10 3/mcL Normal 4.5-10.8 [facility] Comment on above: Performed By: #### G GT, HBSAG, HBCM, HCV1 #### [place] [address] #### CBC, ESR, LD, 641895, ANEU, CMP, GFR, URIC, ADIFF, ANAIFS #### [address] [address] CMPon 11-24-2024 Albumin Level 3.1 G/dL Low 3.4-4.8 [facility] Comment on above: Performed By: #### G GT, HBSAG, HBCM, HCV1 #### [place] [address] #### CBC, ESR, LD, 354845, ANEU, CMP, GFR, URIC, ADIFF, ANAIFS #### [address] [address] Albumin/Globulin [Mass ratio] 0.8 {ratio} Low 1.1-2.5 [facility] Comment on above: Performed By: #### G GT, HBSAG, HBCM, HCV1 #### [place] [address] #### CBC, ESR, LD, 759564, ANEU, CMP, GFR, URIC, ADIFF, ANAIFS #### [address] [address] ALP [Catalytic activity/Vol] 165 U/L High 40-135 [facility] Comment on above: Performed By: #### G GT, HBSAG, HBCM, HCV1 #### [place] [address] #### CBC, ESR, LD, 751712, ANEU, CMP, GFR, URIC, ADIFF, ANAIFS #### [address] [address] ALT [Catalytic activity/Vol] 127 U/L High 14-59 [facility] Comment on above: Performed By: #### G GT, HBSAG, HBCM, HCV1 #### [place] [address] #### CBC, ESR, LD, 475158, ANEU, CMP, GFR, URIC, ADIFF, ANAIFS #### [address] [address] AST [Catalytic activity/Vol] 145 U/L High 10-40 [facility] Comment on above: Performed By: #### G GT, HBSAG, HBCM, HCV1 #### [place] [address] #### CBC, ESR, LD, 910861, ANEU, CMP, GFR, URIC, ADIFF, ANAIFS #### [address] [address] Bili Total 0.7 mg/dL Normal 0.2-1.0 [facility] Comment on above: Result Comment: Use of this assay is not recommended for patients undergoing treatment with eltrombopag due to the potential for falsely elevated results. Performed By: #### G GT, HBSAG, HBCM, HCV1 #### [place] [address] #### CBC, ESR, LD, 817212, ANEU, CMP, GFR, URIC, ADIFF, ANAIFS #### [address] [address] BUN/Creatinine Ratio 27 ratio Normal 7-[address] [facility] Comment on above: Performed By: #### G GT, HBSAG, HBCM, HCV1 #### [address] [address] #### CBC, ESR, LD, 207517, ANEU, CMP, GFR, URIC, ADIFF, ANAIFS #### [address] [address] Calcium [Mass/Vol] 10.8 mg/dL High 8.4-10.2 [facility] Comment on above: Performed By: #### G GT, HBSAG, HBCM, HCV1 #### [place] [address] #### CBC, ESR, LD, 874998, ANEU, CMP, GFR, URIC, ADIFF, ANAIFS #### [address] [address] Chloride [Moles/Vol] 104 mmol/L Normal 98-[address] [facility] Comment on above: Performed By: #### G GT, HBSAG, HBCM, HCV1 #### [place] [address] #### CBC, ESR, LD, 682418, ANEU, CMP, GFR, URIC, ADIFF, ANAIFS #### [address] [address] CO2 [Moles/Vol] 32 mmol/L High 23-31 [facility] Comment on above: Performed By: #### G GT, HBSAG, HBCM, HCV1 #### [place] [address] #### CBC, ESR, LD, 216866, ANEU, CMP, GFR, URIC, ADIFF, ANAIFS #### [address] [address] Creatinine [Mass/Vol] 1.58 mg/dL High 0.51-0.95 [facility] Comment on above: Performed By: #### G GT, HBSAG, HBCM, HCV1 #### [place] [address] #### CBC, ESR, LD, 915116, ANEU, CMP, GFR, URIC, ADIFF, ANAIFS #### [address] [address] Electrolyte Balance 8.0 mEq/L Normal 4.0-15.0 [facility] Comment on above: Performed By: #### G GT, HBSAG, HBCM, HCV1 #### [address] [address] #### CBC, ESR, LD, 937302, ANEU, CMP, GFR, URIC, ADIFF, ANAIFS #### [address] [address] Globulin 3.9 G/dL Normal 2.7-4.4 [facility] Comment on above: Performed By: #### G GT, HBSAG, HBCM, HCV1 #### [place] [address] #### CBC, ESR, LD, 285858, ANEU, CMP, GFR, URIC, ADIFF, ANAIFS #### [address] [address] Glucose [Mass/Vol] 98 mg/dL Normal 80-115 [facility] Comment on above: Performed By: #### G GT, HBSAG, HBCM, HCV1 #### [place] [address] #### CBC, ESR, LD, 722712, ANEU, CMP, GFR, URIC, ADIFF, ANAIFS #### [address] [address] Potassium [Moles/Vol] 3.9 mmol/L Normal 3.5-5.1 [facility] Comment on above: Performed By: #### G GT, HBSAG, HBCM, HCV1 #### [place] [address] #### CBC, ESR, LD, 975861, ANEU, CMP, GFR, URIC, ADIFF, ANAIFS #### [address] [address] Sodium [Moles/Vol] 144 mmol/L Normal 136-145 [facility] Comment on above: Performed By: #### G GT, HBSAG, HBCM, HCV1 #### [address] [address] #### CBC, ESR, LD, 041011, ANEU, CMP, GFR, URIC, ADIFF, ANAIFS #### [address] [address] Total Protein 7.0 G/dL Normal 6.4-8.2 [facility] Comment on above: Performed By: #### G GT, HBSAG, HBCM, HCV1 #### [place] [address] #### CBC, ESR, LD, 723563, ANEU, CMP, GFR, URIC, ADIFF, ANAIFS #### [address] [address] Urea nitrogen [Mass/Vol] 43 mg/dL High 7-18 [facility] Comment on above: Performed By: #### G GT, HBSAG, HBCM, HCV1 #### [place] [address] #### CBC, ESR, LD, 007916, ANEU, CMP, GFR, URIC, ADIFF, ANAIFS #### [address] [address] ESRon 11-24-2024 Erythrocyte Sed Rate 20 mm/hr Normal 0-[address] [facility] Comment on above: Performed By: #### G GT, HBSAG, HBCM, HCV1 #### [place] [address] #### CBC, ESR, LD, 226116, ANEU, CMP, GFR, URIC, ADIFF, ANAIFS #### [address] [address] GGTon 11-24-2024 Gamma GT 66 U/L High 5-55 [facility] Comment on above: Performed By: #### G GT, HBSAG, HBCM, HCV1 #### [place] [address] #### CBC, ESR, LD, 849631, ANEU, CMP, GFR, URIC, ADIFF, ANAIFS #### [address] [address] HBCMon 11-24-2024 Hep B Core IgM Ab Non-Reactive Normal Non-Reactive [facility] Comment on above: Performed By: #### G GT, HBSAG, HBCM, HCV1 #### [place] [address] #### CBC, ESR, LD, 124118, ANEU, CMP, GFR, URIC, ADIFF, ANAIFS #### [address] [address] Hep B Core IgM Ab Int See Interp Normal [facility] Comment on above: Result Comment: Clinical Interpretation: Samples with a value < 0.80 Index are considered nonreactive (negative) for IgM antibodies to hepatitis B core antigen. Performed By: #### G GT, HBSAG, HBCM, HCV1 #### [place] [address] #### CBC, ESR, LD, 655534, ANEU, CMP, GFR, URIC, ADIFF, ANAIFS #### [address] [address] HBSAGon 11-24-2024 Hep B Surf Ag Non-Reactive Normal Non-Reactive [facility] Comment on above: Performed By: #### G GT, HBSAG, HBCM, HCV1 #### [place] [address] #### CBC, ESR, LD, 869374, ANEU, CMP, GFR, URIC, ADIFF, ANAIFS #### [address] [address] HCVon 11-24-2024 Hep C Ab Non-Reactive Normal Non-Reactive [facility] Comment on above: Performed By: #### G GT, HBSAG, HBCM, HCV1 #### [place] [address] #### CBC, ESR, LD, 445767, ANEU, CMP, GFR, URIC, ADIFF, ANAIFS #### [address] [address] Hep C Ab Int See Interp Normal [facility] Comment on above: Result Comment: Clinical Interpretation: Nonreactive: Samples with a value < 0.80 are considered nonreactive (negative) for antibodies to HCV. A negative test result does not exclude the possibility of exposure to or infection with HCV. HCV antibodies may be undetectable in some stages of the infection and in some clinical conditions. Performed By: #### G GT, HBSAG, HBCM, HCV1 #### [facility] [address] [place] [address] #### CBC, ESR, LD, 232822, ANEU, CMP, GFR, URIC, ADIFF, ANAIFS #### [place] [address] [place], [place] [address] LABORATORYOrdered By: Kellie Alejandra on 11-24-2024 Albumin DL <= 20 mg/L (U) [Mass/Vol] 119.7 mg/L Invalid Interpretation Code AO ADM SS Albumin/Creatinine DL <= 20 mg/L (U) [Mass ratio] 169 mg/G High 0 - 30 mg/G AO Chemistry S Creatinine (U) [Mass/Vol] 71.0 mg/dL Invalid Interpretation Code AO ADM SS LABORATORYOrdered By: [employer] on 11-24-2024 25-hydroxyvitamin D3 [Mass/Vol] 86.5 [...] LDHon 11-24-2024 LDH 362 U/L High 81-234 [facility] Comment on above: Performed By: #### G GT, HBSAG, HBCM, HCV1 #### [address] [address] #### CBC, ESR, LD, 191234, ANEU, CMP, GFR, URIC, ADIFF, ANAIFS #### [address] [address] LIPon 11-24-2024 Lipase Level 40 U/L Normal 16-77 [facility] Comment on above: Performed By: #### G GT, HBSAG, HBCM, HCV1 #### [place] [address] #### CBC, ESR, LD, 999639, ANEU, CMP, GFR, URIC, ADIFF, ANAIFS #### [address] [address] MALBRon 11-24-2024 U Creatinine 71.0 mg/dL Normal [facility] Comment on above: Performed By: #### G GT, HBSAG, HBCM, HCV1 #### [place] [address] #### CBC, ESR, LD, 780960, ANEU, CMP, GFR, URIC, ADIFF, ANAIFS #### [address] [address] U Microalb 119.7 mg/L Normal [facility] Comment on above: Performed By: #### G GT, HBSAG, HBCM, HCV1 #### [place] [address] #### CBC, ESR, LD, 382193, ANEU, CMP, GFR, URIC, ADIFF, ANAIFS #### [address] [address] U Ratio Alb/Cre 169 mg/G High 0-30 [facility] Comment on above: Performed By: #### G GT, HBSAG, HBCM, HCV1 #### [place] [address] #### CBC, ESR, LD, 648142, ANEU, CMP, GFR, URIC, ADIFF, ANAIFS #### [address] [address] TSHon 11-24-2024 TSH Qn 1.71 m[IU]/L Normal 0.36-3.74 [facility] Comment on above: Performed By: #### G GT, HBSAG, HBCM, HCV1 #### [address] [address] #### CBC, ESR, LD, 755424, ANEU, CMP, GFR, URIC, ADIFF, ANAIFS #### [address] [address] URICon 11-24-2024 Uric Acid Lvl 10.8 mg/dL High 2.6-6.2 [facility] Comment on above: Performed By: #### G GT, HBSAG, HBCM, HCV1 #### [address] [address] #### CBC, ESR, LD, 035005, ANEU, CMP, GFR, URIC, ADIFF, ANAIFS #### [address] [address] VIDHon 11-24-2024 Vit. D 25-Hydroxy 86.5 ng/mL Normal [facility] Comment on above: Result Comment: Inte rpretive Values Based on Total 25(OH) Vitamin D: Deficient <20 ng/mL Insufficient 20 - <30 ng/mL Sufficient 30-100 ng/mL Performed By: #### G GT, HBSAG, HBCM, HCV1 #### [place] [id number] #### CBC, ESR, LD, 492490, ANEU, CMP, GFR, URIC, ADIFF, ANAIFS #### [address] [address] Celiac Disease Profileon ENDOMYSIAL IGA Negative Normal Negative [facility] Comment on above: Performed By: #### L 300.3900, L300.4310, L101.9900, L3410.2400, L100.0500, L501.6710, L500.4050 #### [facility] [address] [place], [place], [id number] IMMUNOGLOB A QN 193 mg/dL Normal 87-352 [facility] Comment on above: Result Comment: Perf ormed at: [facility] [id number] Dioramist: Jeronimo Means PhD, Phone: [phone] Performed By: #### L 300.3900, L300.4310, L101.9900, L3410.2400, L100.0500, L501.6710, L500.4050 #### [facility] [address] [place], [address] tTG IGA 3 U/mL Normal 0-3 [facility] Comment on above: Result Comment: Nega tive 0 - 3 Weak Positive 4 - 10 Positive >10 Tissue Transglutaminase (tTG) has been identified as the endomysial antigen. Studies have demonstr- ated that endomysial IgA antibodies have over 99% specificity for gluten sensitive enteropathy. Performed By: #### L 300.3900, L300.4310, L101.9900, L3410.2400, L100.0500, L501.6710, L500.4050 #### [facility] [address], [address] Activated partial thrombopla stin time (aPTT) in platelet poor plasma by coagulation aOrdered By: Jeronimo Perez on 11-17-2024 aPTT Coag (PPP) [Time] 33.8 s 24.1-36.2 [facility] Anion gap in Serum or Plasma Ordered By: Jeronimo Perez on 11-17-2024 Anion gap [Moles/Vol] 16 mmol/L High 5-15 [facility] Automated blood erythrocyte countOrdered By: Jeronimo Perez on 11-17-2024 RBC (Bld) [#/Vol] 3.39 10*6/uL Low 4.2-5.4 [facility] Comment on above: Performed By: #### L 300.3900, L300.4310, L101.9900, L3410.2400, L100.0500, L501.6710, L500.4050 #### [facility] [address] [place], [address] Automated blood hematocrit ( percentage)Ordered By: Jeronimo Perez on 11-17-2024 Hematocrit (Bld) [Volume fraction] 32.0 % Low 37-47 [facility] Comment on above: Performed By: #### L 300.3900, L300.4310, L101.9900, L3410.2400, L100.0500, L501.6710, L500.4050 #### [facility] [address] [place], [address] BUN/creatinine ratioOrdered By: Jeronimo Perez on 11-17-2024 Urea nitrogen/Creatinine [Mass ratio] 18.6 mg/mg 10-20 [facility] Bilirubin, totalOrdered By: Jeronimo Perez on 11-17-2024 Bilirubin [Mass/Vol] 0.59 mg/dL 0.00-1.30 [facility] CBC-Complete Blood Cnt No Di ffon 11-17-2024 RDW SD 57.1 fl High 35.1-43.9 [facility] Comment on above: Performed By: #### L 300.3900, L300.4310, L101.9900, L3410.2400, L100.0500, L501.6710, L500.4050 #### [facility] [address] [place], [address] CRPon 11-17-2024 C-REACTIVE PROT 128.00 mg/L High 0.0-3.0 [facility] Comment on above: Performed By: #### L 300.3900, L300.4310, L101.9900, L3410.2400, L100.0500, L501.6710, L500.4050 #### [facility] [address] [place], [address] Carbon dioxide, total [Moles /volume] in Central venous bloodOrdered By: Jeronimo Perez on 11-17-2024 CO2 [Moles/Vol] 26.0 mmol/L 21.0-32.0 [facility] Chloride assayOrdered By: Belén Perez on 11-17-2024 Chloride [Moles/Vol] 100 mmol/L 98-108 [facility] Comprehensive Metabolic Prof ilon 11-17-2024 Chloride [Moles/Vol] 100 mmol/L Normal 98-108 [facility] Comment on above: Performed By: #### L 300.3900, L300.4310, L101.9900, L3410.2400, L100.0500, L501.6710, L500.4050 #### [facility] [address] [place], [address] CO2 [Moles/Vol] 26.0 mmol/L Normal 21.0-32.0 [facility] Comment on above: Performed By: #### L 300.3900, L300.4310, L101.9900, L3410.2400, L100.0500, L501.6710, L500.4050 #### [facility] [address] [place], [address] GAP 16 High 5-15 [facility] Comment on above: Performed By: #### L 300.3900, L300.4310, L101.9900, L3410.2400, L100.0500, L501.6710, L500.4050 #### [facility] [address] [place], [address] Potassium [Moles/Vol] 3.5 mmol/L Normal 3[facility]3-[facility] [facility] Comment on above: Performed By: #### L 300.3900, L300.4310, L101.9900, L3410.2400, L100.0500, L501.6710, L500.4050 #### [facility] [address] [place], [address] Sodium [Moles/Vol] 142 mmol/L Normal 133-145 [facility] Comment on above: Performed By: #### L 300.3900, L300.4310, L101.9900, L3410.2400, L100.0500, L501.6710, L500.4050 #### [facility] [address] [place], [address] Albumin [Mass/Vol] 3.7 g/dL Normal 3.4-4.8 [facility] Comment on above: Performed By: #### L 300.3900, L300.4310, L101.9900, L3410.2400, L100.0500, L501.6710, L500.4050 #### [facility] [address] [place], [address] Albumin/Globulin [Mass ratio] 1.2 {ratio} Normal 0.9-2.4 [facility] Comment on above: Performed By: #### L 300.3900, L300.4310, L101.9900, L3410.2400, L100.0500, L501.6710, L500.4050 #### [facility] [address] [place], [address] ALK PHOS 131 U/L High 35-104 [facility] Comment on above: Performed By: #### L 300.3900, L300.4310, L101.9900, L3410.2400, L100.0500, L501.6710, L500.4050 #### [facility] [address] [place], [address] ALT [Catalytic activity/Vol] 97 U/L High <=34 [facility] Comment on above: Performed By: #### L 300.3900, L300.4310, L101.9900, L3410.2400, L100.0500, L501.6710, L500.4050 #### [facility] [address] [place], [address] AST [Catalytic activity/Vol] 110 U/L High <=31 [facility] Comment on above: Performed By: #### L 300.3900, L300.4310, L101.9900, L3410.2400, L100.0500, L501.6710, L500.4050 #### [facility] [address] [place], [address] Bilirubin [Mass/Vol] 0.59 mg/dL Normal 0.00-1.30 [facility] Comment on above: Performed By: #### L 300.3900, L300.4310, L101.9900, L3410.2400, L100.0500, L501.6710, L500.4050 #### [facility] [address] [place], [address] BUN/CRE 18.6 RATIO Normal 10-20 [facility] Comment on above: Performed By: #### L 300.3900, L300.4310, L101.9900, L3410.2400, L100.0500, L501.6710, L500.4050 #### [facility] [address] [place], [address] Calcium [Mass/Vol] 11.9 mg/dL High 7.6-11.0 [facility] Comment on above: Performed By: #### L 300.3900, L300.4310, L101.9900, L3410.2400, L100.0500, L501.6710, L500.4050 #### [facility] [address] [place], [address] Creatinine [Mass/Vol] 2.07 mg/dL High 0.70-1.20 [facility] Comment on above: Performed By: #### L 300.3900, L300.4310, L101.9900, L3410.2400, L100.0500, L501.6710, L500.4050 #### [facility] [address], [address] GFR/1.73 sq M.predicted among non-blacks MDRD (S/P/Bld) [Vol rate/Area] 26 mL/min/{1.73_m2} Low >60 [facility] Comment on above: Result Comment: mL/m in/1.73m2 CKD-EPI Creatinine Equation (2020) Performed By: #### L 300.3900, L300.4310, L101.9900, L3410.2400, L100.0500, L501.6710, L500.4050 #### [facility] [address] [place], [address] Globulin (S) [Mass/Vol] 3.2 g/dL Normal 2.2-4.2 [facility] Comment on above: Performed By: #### L 300.3900, L300.4310, L101.9900, L3410.2400, L100.0500, L501.6710, L500.4050 #### [facility] [address] [place], [address] Glucose [Mass/Vol] 106 mg/dL High 70-99 [facility] Comment on above: Performed By: #### L 300.3900, L300.4310, L101.9900, L3410.2400, L100.0500, L501.6710, L500.4050 #### [facility] [address] [place], [address] T PROT 6.9 g/dL Normal 5.9-8.4 [facility] Comment on above: Performed By: #### L 300.3900, L300.4310, L101.9900, L3410.2400, L100.0500, L501.6710, L500.4050 #### [facility] [address] [place], [place], [address] Urea nitrogen [Mass/Vol] 39 mg/dL High 4-19 [facility] Comment on above: Performed By: #### L 300.3900, L300.4310, L101.9900, L3410.2400, L100.0500, L501.6710, L500.4050 #### [facility] [address] [place], [address] Erythrocyte Sed Rateon 11-17 SED RATE 18 mm/hr Normal 0-30 [facility] Comment on above: Performed By: #### L 300.3900, L300.4310, L101.9900, L3410.2400, L100.0500, L501.6710, L500.4050 #### [facility] [address] [place], [address] Erythrocyte distribution wid th ratioOrdered By: Jeronimo Perez on 11-17-2024 Erythrocyte distribution width (RBC) [Ratio] 16.5 % High 11.6-14.6 [facility] Comment on above: Performed By: #### L 300.3900, L300.4310, L101.9900, L3410.2400, L100.0500, L501.6710, L500.4050 #### [facility] [address] [place], [address] Erythrocyte distribution wid th standard deviationOrdered By: Jeronimo Perez on 11-17-2024 Erythrocyte distribution width (RBC) [Ratio] 57.1 fl High 35.1-43.9 [facility] Erythrocyte sedimentation ra teOrdered By: Jeronimo Perez on 11-17-2024 ESR (Bld) [Velocity] 18 mm/h 0-30 [facility] Glomerular filtration rate ( GFR) estimation/1.73 sq m using serum, plasma, or whole bOrdered By: Jeronimo Perez on 11-17-2024 GFR/1.73 sq M.predicted among non-blacks MDRD (S/P/Bld) [Vol rate/Area] 26 mL/min/{1.73_m2} Low >60 [facility] Comment on above: mL/min/1.73m2 CKD-EP I Creatinine Equation (2020) Hemoglobin measurementOrdere d By: Jeronimo Perez on 11-17-2024 Hemoglobin (Bld) [Mass/Vol] 10.2 g/dL Low 12.0-15.0 [facility] Comment on above: Performed By: #### L 300.3900, L300.4310, L101.9900, L3410.2400, L100.0500, L501.6710, L500.4050 #### [facility] [address] [place], [address] International normalized rat io (INR) calculationOrdered By: Jeronimo Perez on 11-17-2024 INR Coag (Bld) [Relative time] 1.0 {INR} [facility] - Chemistry and C hemistry - challengeOrdered By: Jeronimo Perez on 11-17-2024 AST [Catalytic activity/Vol] 110 U/L High <32 [facility] MCV (mean corpuscular volume ) determinationOrdered By: Jeronimo Perez on 11-17-2024 MCV (RBC) [Entitic vol] 94.4 fL Normal 81-99 [facility] Comment on above: Performed By: #### L 300.3900, L300.4310, L101.9900, L3410.2400, L100.0500, L501.6710, L500.4050 #### [facility] [address] [place], [address] Mean corpuscular hemoglobin (MCH) determinationOrdered By: Jeronimo Perez on 11-17-2024 MCH (RBC) [Entitic mass] 30.1 pg Normal 27.0-32.0 [facility] Comment on above: Performed By: #### L 300.3900, L300.4310, L101.9900, L3410.2400, L100.0500, L501.6710, L500.4050 #### [facility] [address] [place], [address] Mean corpuscular hemoglobin concentration (MCHC) determinationOrdered By: Jeronimo Perez on 11-17-2024 MCHC (RBC) [Mass/Vol] 31.9 g/dL Low 32-36 [facility] Comment on above: Performed By: #### L 300.3900, L300.4310, L101.9900, L3410.2400, L100.0500, L501.6710, L500.4050 #### [facility] [address] [place], [address] Mean platelet volume determi nationOrdered By: Jeronimo Perez on 11-17-2024 Platelet mean volume (Bld) [Entitic vol] 12.6 fL High 6.2-12.0 [facility] Comment on above: Performed By: #### L 300.3900, L300.4310, L101.9900, L3410.2400, L100.0500, L501.6710, L500.4050 #### [facility] [address] [place], [address] Partial Thromboplast Timeon 11-17-2024 aPTT Coag (Bld) [Time] 33.8 s Normal 24.1-36.2 [facility] Comment on above: Performed By: #### L 300.3900, L300.4310, L101.9900, L3410.2400, L100.0500, L501.6710, L500.4050 #### [facility] [address] [place], [address] Platelet countOrdered By: Belén Perez on 11-17-2024 Platelets (Bld) [#/Vol] 108 10*3/uL Low 150-450 [facility] Comment on above: Performed By: #### L 300.3900, L300.4310, L101.9900, L3410.2400, L100.0500, L501.6710, L500.4050 #### [facility] [address] [place], [place], [address] Potassium measurement (mass/ volume)Ordered By: Jeronimo Perez on 11-17-2024 Potassium (Unsp spec) [Mass/Vol] 3.5 mmol/L 3.3-5.1 [facility] Prothrombin Time w/INRon INR Coag (PPP) [Relative time] 1.0 {INR} Normal [facility] Comment on above: Performed By: #### L 300.3900, L300.4310, L101.9900, L3410.2400, L100.0500, L501.6710, L500.4050 #### [facility] [address] [place], [place], [address] PT Coag (PPP) [Time] 13.2 s Normal 11.7-14.9 [facility] Comment on above: Performed By: #### L 300.3900, L300.4310, L101.9900, L3410.2400, L100.0500, L501.6710, L500.4050 #### [facility] [address] [place], [place], [address] Prothrombin timeOrdered By: Jeronimo Perez on 11-17-2024 PT Coag (PPP) [Time] 13.2 s 11.7-14.9 [facility] Serum creatinine measurement (mass/volume)Ordered By: Jeornimo Perez on 11-17-2024 Creatinine [Mass/Vol] 2.07 mg/dL High 0.70-1.20 [facility] Serum globulin measurementOr dered By: Jeronimo Perez on 11-17-2024 Globulin (S) [Mass/Vol] 3.2 g/dL 2.2-4.2 [facility] Serum glucose measurement (m ass/volume)Ordered By: Jeronimo Perez on 11-17-2024 Glucose [Mass/Vol] 106 mg/dL High 70-99 [facility] Serum or plasma C reactive p rotein measurement (mass/volume)Ordered By: Jeronimo Perez on 11-17-2024 CRP [Mass/Vol] 128.00 mg/L High 0.0-3.0 [facility] Serum or plasma IgA measurem ent (mass/volume)Ordered By: Jeronimo Perez on 11-17-2024 IgA [Mass/Vol] 193 mg/dL 87-352 [facility] Comment on above: Performed at: [facility] [address] [id number] Director: Jeronimo Means PhD, Phone: [phone] Serum or plasma alanine baker otransferase (ALT) measurementOrdered By: Jeronimo Perez on 11-17-2024 ALT [Catalytic activity/Vol] 97 U/L High <35 [facility] Serum or plasma albumin matt urement (mass/volume)Ordered By: Jeronimo Perez on 11-17-2024 Albumin [Mass/Vol] 3.7 g/dL 3.4-4.8 [facility] Serum or plasma albumin/glob ulin mass ratioOrdered By: Jeronimo Perez on 11-17-2024 Albumin/Globulin [Mass ratio] 1.2 {ratio} 0.9-2.4 [facility] Serum or plasma alkaline adama sphatase measurementOrdered By: Jeronimo Perez on 11-17-2024 ALP [Catalytic activity/Vol] 131 U/L High 35-104 [facility] Serum or plasma calcium matt urement (mass/volume)Ordered By: Jeronimo Perez on 11-17-2024 Calcium [Mass/Vol] 11.9 mg/dL High 7.6-11.0 [facility] Serum or plasma urea nitroge n measurement (mass/volume)Ordered By: Jeronimo Perez on 11-17-2024 Urea nitrogen [Mass/Vol] 39 mg/dL High 4-19 [facility] Serum tissue transglutaminas e (tTG) IgA antibody assay (units/volume)Ordered By: Jeronimo Perez on 11-17-2024 tTG IgA Qn (S) 3 U/mL 0-3 [facility] Comment on above: Negative 0 - 3 Weak Positive 4 - 10 Positive >10 Tissue Transglutaminase (tTG) has been identified as the endomysial antigen. Studies have demonstr- ated that endomysial IgA antibodies have over 99% specificity for gluten sensitive enteropathy. Sodium levelOrdered By: Bess Perez on 11-17-2024 Sodium [Moles/Vol] 142 mmol/L 133-145 [facility] Total proteinOrdered By: Silver Perez on 11-17-2024 Protein [Mass/Vol] 6.9 g/dL 5.9-8.4 [facility] White blood cell (WBC) count Ordered By: Bessbrynn Nelida on 11-17-2024 WBC (Bld) [#/Vol] 6.7 10*3/uL Normal 4.4-11.0 [facility] Comment on above: Performed By: #### L 300.3900, L300.4310, L101.9900, L3410.2400, L100.0500, L501.6710, L500.4050 #### [facility] [address] [place], [address] CT ABDOMEN/PELVIS W/ CONTRAS Ton 08-27-2024 CT [...] a (more content not included)... Normal [facility] [employer] [facility] Bacteria Ur Culton 5 Bacteria identified [...] technique or straight catheterization for???urine???collect ion. Normal [facility] Comment on above: Performed By: #### 6 30-4 #### [facility] CLIA [id number] [address] [place] [address] [place] CNOVon 08-22-2024 CNOV Office Visit ([facility] ) KERRY CHAO ([id number]) 1955 F Date Time Provider Department 08/22/24 1:45 PM TO ALCARAZ [facility] During your visit today, we recorded the following information about you: Temperature Pulse Respiration Blood pressure 98.9 degrees 94/minute 16/minute 122/68 Weight 48.7 kg GabeTo mercerAPRN.PROTOTYPE ENGINEER MANAGER 08/22/2024 2:21 PM Signed [facility] [...] R10.9 - Increase fiber in diet - Ellery low residue diet - IBUPROFEN 400 MG TABLET - follow up with PCP if not improving, continue plan for CT scan this week To Alcaraz APRN.PROTOTYPE ENGINEER MANAGER -I have reviewed and upda (more content not included)... Normal [facility] UA DIP, URINE (POC)on 2024 BILIRUBIN UA (POCT) Small Abnormal Negative [facility] CLARITY UA (POCT) Clear [facility] COLOR UA (POCT) Yellow [facility] GLUCOSE UA (POCT) Negative Negative mg/dL [facility] Hemoglobin Ql (U) Negative Negative [facility] Interpretation and review of laboratory results Abnormal [facility] KETONE UA (POCT) Trace Negative mg/dL [facility] LEUKOCYTES UA (POCT) Trace Abnormal Negative [facility] NITRITE UA (POCT) Negative Negative [facility] PH UA (POCT) 5.5 4.5 - 8.0 [facility] Protein Ql (U) Negative Negative mg/dL [facility] SPECIFIC GRAVITY UA (POCT) 1.025 1.005 - 1.030 [facility] UROBILINOGEN UA (POCT) 0.2 Meaghan l E.U./dL [facility] Location:[facility], [address] [place] [address], [place], [place], [id number] [place] [address] POINT OF CARE [facility] LABORATORYOrdered By: SYSTEM SYSTEM on 11-19-2023 25-hydroxyvitamin [...] calculated value from Hemoglobin A1C and is customer support representative of the average blood glucose level [...] Reason for Exam: fall with headstrike FINDINGS: Forestry Adviser (topogram) images: Unremarkable BRAIN/VENTRICLES: No evidence of [...] 08/30/2023 3:13:29 PM Ordering Provider: HEAVEN Jay [facility] ([place]) Darian 09-18-2022 U Creatinine 148.2 mg/dL High 28.0-117.0 [facility] [place] Comment on above: Performed By: #### M ALBR #### Lissy [address] [address] U Microalb 2631 mcg/dL Normal [facility] ([place] Comment on above: Performed By: #### M ALBR #### [facility] [address] [place], [place] [address] U Ratio Alb/Cre 18 mcg/mg Normal 0-30 [facility] ([place] Comment on above: Performed By: #### M ALBR #### [facility] [address] [place], [place] [address] LABORATORYOrdered By: Dina Brooks on 06-20-2021 Adenovirus [...] notified. Results have been reported to the [facility]. FLUBV RNA TAB+non-probe Ql (Nph) Not Detected *NA* (06/20/21 9:53 AM) Invalid Interpretation Code Not Detected AH Auto Viro/Sero SS HAS SYMPTOMS RELATED TO CONDITION OF INTEREST:FIND:PT:^ELDY ENT:ORD: Yes (06/20/21 9:53 AM) Invalid Interpretation [...] 15:11-0400 Body temperature 98.5 [degF] Ranjith Ling CARD GAME OPERATOR-C Work Phone: [facility] 12-24-2024 15:11-0400 Diastolic blood pressure 85 mm[Hg] Ranjith Ling CARD GAME OPERATOR-C Work Phone: [facility] 12-24-2024 15:11-0400 Heart rate 97 /min Ranjith Ling CARD GAME OPERATOR-C Work Phone: [facility] 12-24-2024 15:11-0400 Respiratory rate 16 /min Ranjith Mahmoodpkins CARD GAME OPERATOR-C Work Phone: [facility] 12-24-2024 15:11-0400 SaO2% (BldA) [Mass fraction] 95 % Ranjith Anuradha CARD GAME OPERATOR-C Work Phone: [facility] 12-24-2024 15:11-0400 Systolic blood pressure 162 mm[Hg] Ranjith Ling CARD GAME OPERATOR-C Work Phone: [facility] 12-24-2024 12:07-0400 Body height 167.64 cm Ranjith Anuradha CARD GAME OPERATOR-C Work Phone: [facility] 12-24-2024 12:07-0400 Body mass index (BMI) [Ratio] 18.1 kg/m2 Ranjith Anuradha CARD GAME OPERATOR-C Work Phone: [facility] 12-24-2024 12:07-0400 Body weight 50.8 kg Ranjith Lign CARD GAME OPERATOR-C Work Phone: [facility] 12-22-2024 14:33-0400 Body mass index (BMI) [Ratio] 18.1 kg/m2 Ranjith Mahmoodpkins CARD GAME OPERATOR-C Work Phone: [facility] 12-22-2024 14:33-0400 Body temperature 98.6 [degF] Ranjith Ling CARD GAME OPERATOR-C Work Phone: [facility] 12-22-2024 14:33-0400 Body weight 50.91 kg Ranjith Mahmoodpkins CARD GAME OPERATOR-C Work Phone: [facility] 12-22-2024 14:33-0400 Diastolic blood pressure 65 mm[Hg] Ranjith Mahmoodpkins CARD GAME OPERATOR-C Work Phone: [facility] 12-22-2024 14:33-0400 Heart rate 103 /min Ranjith Mahmoodpkins CARD GAME OPERATOR-C Work Phone: [facility] 12-22-2024 14:33-0400 Respiratory rate 18 /min Ranjith Mahmoodpkins CARD GAME OPERATOR-C Work Phone: [facility] 12-22-2024 14:33-0400 SaO2% (BldA) [Mass fraction] 100 % Ranjith Mahmoodpkins CARD GAME OPERATOR-C Work Phone: [facility] 12-22-2024 14:33-0400 Systolic blood pressure 104 mm[Hg] Ranjith Mahmoodpkins CARD GAME OPERATOR-C Work Phone: [facility] 12-07-2024 15:00-0400 Diastolic blood pressure 72 mm[Hg] Ranjith Anuradha CARD GAME OPERATOR-C Work Phone: [facility] 12-07-2024 15:00-0400 Heart rate 78 /min Ranjith [place] CARD GAME OPERATOR-C Work Phone: [facility] 12-07-2024 15:00-0400 SaO2% (BldA) [Mass fraction] 98 % Ranjith [place] CARD GAME OPERATOR-C Work Phone: [facility] 12-07-2024 15:00-0400 Systolic blood pressure 131 mm[Hg] Ranjith Ling CARD GAME OPERATOR-C Work Phone: [facility] 12-07-2024 14:39-0400 Body temperature 97 [degF] Ranjith Ling CARD GAME OPERATOR-C Work Phone: [facility] 12-07-2024 14:39-0400 Respiratory rate 24 /min Ranjith Ling CARD GAME OPERATOR-C Work Phone: [facility] 12-07-2024 12:37-0400 Body height 1463.04 cm Ranjith Ling CARD GAME OPERATOR-C Work Phone: [facility] 12-07-2024 12:37-0400 Body mass index (BMI) [Ratio] 0 kg/m2 Ranjith Ling CARD GAME OPERATOR-C Work Phone: [facility] 12-07-2024 12:37-0400 Body weight 2.43 kg Ranjith Ling CARD GAME OPERATOR-C Work Phone: [facility] 08-22-2024 13:51-0400 Body temperature 98.91 [degF] To Alcaraz TOOL DRESSER.PROTOTYPE ENGINEER MANAGER Work Phone: [facility] 08-22-2024 13:51-0400 Body weight 48.7 kg To Alcaraz TOOL DRESSER.PROTOTYPE ENGINEER MANAGER Work Phone: [facility] 08-22-2024 13:51-0400 Diastolic blood pressure 68 mm[Hg] To Alcaraz TOOL DRESSER.PROTOTYPE ENGINEER MANAGER Work Phone: [facility] 08-22-2024 13:51-0400 Heart rate 94 /min To Alcaraz TOOL DRESSER.PROTOTYPE ENGINEER MANAGER Work Phone: [facility] 08-22-2024 13:51-0400 Respiratory rate 16 /min To Alcaraz TOOL DRESSER.PROTOTYPE ENGINEER MANAGER Work Phone: [facility] 08-22-2024 13:51-0400 SaO2% (BldA) [Mass fraction] 95 % To Alcaraz TOOL DRESSER.PROTOTYPE ENGINEER MANAGER Work Phone: [facility] 08-22-2024 13:51-0400 Systolic blood pressure 122 mm[Hg] To Alcaraz TOOL DRESSER.PROTOTYPE ENGINEER MANAGER Work Phone: [facility] 08-30-2023 13:47-0400 Body temperature 97.34 [degF] ARTURO SHAIKH DO [facility] 08-30-2023 13:47-0400 Diastolic Blood Pressure Non-Invasive 75 mm[Hg] ARTURO SHAIKH DO [facility] 08-30-2023 13:47-0400 Heart rate 100 /min ARTURO SHAIKH DO [facility] 08-30-2023 13:47-0400 Respiratory rate 20 /min ARTURO SHAIKH DO [facility] 08-30-2023 13:47-0400 Systolic Blood Pressure Non-Invasive 106 mm[Hg] ARTURO SHAIKH DO [facility] Encounters Encounter Date Encounter Type Care Provider Facility Start: 01-21-2025 ambulatory Ranjith Ling Facility:[facility] Start: 01-11-2025 End: 01-11-2025 ambulatory Ranjith Ling Facility:[facility] Start: 01-06-2025 ambulatory Ten Thornton ty:[facility] Start: 12-29-2024 End: 12-29-2024 ambulatory Ranjith Ling Facility:[facility] Start: 12-29-2024 End: 12-29-2024 ambulatory Ranjith Ling Facility:[facility] Start: 12-22-2024 End: 12-22-[address] Ten Nogueira MD -[facility] Work Phone: Start: 12-22-2024 End: 12-22-2024 ambulatory Ranjith Ling CARD GAME OPERATOR-C Work Phone: -[facility] Start: 12-16-2024 End: 12-16-2024 ambulatory RANJITH LING TOOL DRESSER - PROTOTYPE ENGINEER MANAGER Facility:[facility] Start: 12-16-2024 End: 12-16-2024 Patient encounter procedure RANJITH LING TOOL DRESSER - PROTOTYPE ENGINEER MANAGER [facility] Start: 12-11-2024 ambulatory [facility] Facility :[facility] Start: 12-07-2024 End: 12-07-2024 Emergency department patient visit Ranjith Ling CARD GAME OPERATOR-C Work Phone: -Emergency Department Work Phone: Start: 11-26-2024 Non-patient / Non-visit Allegra Garcia -[facility] Work Phone: Start: 11-26-2024 ambulatory Allegra Hylton Facility :[facility] Start: 11-24-2024 End: 11-28-2024 Outreach Lab RANJITH LING TOOL DRESSER - PROTOTYPE ENGINEER MANAGER [facility] Start: 11-24-2024 End: 11-28-2024 ambulatory RANJITH LING TOOL DRESSER - PROTOTYPE ENGINEER MANAGER Facility:[facility] Start: 11-24-2024 End: 11-24-2024 Patient encounter procedure RANJITH LING TOOL DRESSER - PROTOTYPE ENGINEER MANAGER [facility] Start: 11-17-2024 End: 11-17-2024 ambulatory Ranjith Ling CARD GAME OPERATOR-C Work Phone: -[facility] Start: 11-17-2024 End: 11-17-[address] Jeronimo Perez MD -[facility] Work Phone: Start: 11-17-2024 End: 11-17-2024 ambulatory Jeronimo spike Facility:[facility] Start: 08-25-2024 End: 08-28-2024 ambulatory RANJITH LING Facility:[facility] Start: 08-24-2024 End: 08-24-2024 Follow-up encounter Sole Villa TOOL DRESSER.PROTOTYPE ENGINEER MANAGER Work Phone: [facility] Comment on above: Results Start: 08-22-2024 End: 08-22-2024 Office outpatient visit 25 minutes To Alcaraz TOOL DRESSER.PROTOTYPE ENGINEER MANAGER Work Phone: [facility] Comment on above: UTI symptoms (Primar y Dx); Acute left flank pain Start: 08-22-2024 End: 08-22-2024 ambulatory RANJITH LING Facility:[facility] Start: 11-19-2023 End: 11-19-2023 Patient encounter procedure RANJITH LING TOOL DRESSER - PROTOTYPE ENGINEER MANAGER [facility] Start: 08-30-2023 End: 08-30-2023 Emergency department patient visit ARTURO SHAIKH [facility] Start: 11-30-[address] JERONIMO PEREZ MD Fa cility:[facility] Start: 10-11-2022 Orders Only Melissa Hernadez er TOOL DRESSER.PROTOTYPE ENGINEER MANAGER Work Phone: [facility] Comment on above: Tobacco use disorder (Primary Dx) Start: 09-30-2022 ambulatory RANJITH BENITES TOOL DRESSER - PROTOTYPE ENGINEER MANAGER Facility:[facility] Start: 09-18-2022 End: 09-22-2022 ambulatory RANJITH LING TOOL DRESSER - PROTOTYPE ENGINEER MANAGER Facility:[facility] Start: 01-10-2022 Telephone encounter Bonny Pena TOOL DRESSER.PROTOTYPE ENGINEER MANAGER Work Phone: [facility] Comment on above: Results Start: 07-04-2021 End: 07-04-2021 Patient encounter procedure RANJITH LING TOOL DRESSER - PROTOTYPE ENGINEER MANAGER [facility] Start: 06-20-2021 End: 06-20-2021 Patient encounter procedure RANJITH LING TOOL DRESSER - PROTOTYPE ENGINEER MANAGER [facility] Procedures Date Procedure Procedure Detail Performing Clinician Start: 12-29-2024 Calcium measurement Baldemar Ling CARD GAME OPERATOR-C Work Phone: Start: 12-29-2024 Estimated creatinine clearance Ranjith Ling CARD GAME OPERATOR-C Work Phone: Start: 12-24-2024 Parathyroid hormone measurement Ranjith Ling CARD GAME OPERATOR-C Work Phone: Start: 12-22-2024 Urnls dip stick/tabl et reagent auto microscopy Ranjith Ling CARD GAME OPERATOR-C Work Phone: Start: 12-22-2024 Folic acid measureme nt, RBC Ranjith Ling CARD GAME OPERATOR-C Work Phone: Comment on above: Performed at: [address] Director: Jeronimo Means PhD, Phone: [phone] Start: 12-22-2024 Immature reticulocyt e fraction Ranjith Ling CARD GAME OPERATOR-C Work Phone: Start: 12-22-2024 Serum inorganic phos phate measurement Ranjith Ling CARD GAME OPERATOR-C Work Phone: Start: 12-22-2024 Total iron binding capacity measurement Ranjith Ling CARD GAME OPERATOR-C Work Phone: Start: 12-22-2024 Urine culture Ranjith price CARD GAME OPERATOR-C Work Phone: Start: 12-07-2024 Estimated creatinine clearance Ranjith Ling CARD GAME OPERATOR-C Work Phone: Start: 11-17-2024 Endomysial antibody IgA level Ranjith Ling CARD GAME OPERATOR-C Work Phone: Start: 08-22-2024 Urnls dip stick/tabl et rgnt auto w/o microscopy To Alcaraz TOOL DRESSER.PROTOTYPE ENGINEER MANAGER Work Phone: Plan of Treatment Date Care Activity Detail Author Start: 08-29-2033 Urine microalbumin profile DTaP,Tdap,Td Vaccine (3 - Td or Tdap) [facility] Start: 12-13-2031 RSV Vaccine (1 - 1-d ose 75+ series) RSV Vaccine (1 - 1-dose 75+ series) [facility] Start: 08-14-2025 Screening for malign ant neoplasm of colon [facility] Start: 01-06-2025 CT of thorax with contrast Chest WITH Contrast [facility] Start: 01-06-2025 Patient encounter procedure Registered Clinical -Cat Scan WC Work Phone: Start: 12-29-2024 Patient encounter procedure Registered Clinical -Laboratory Specimen Work Phone: Start: 12-29-2024 Registered Recurring Registered Recu rring -[facility] Start: 12-29-2024 End: 12-29-2024 Patient encounter procedure Lymphadenopathy -[facility] Work Phone: Start: 12-07-2024 [facility] Start: 11-02-2024 Influenza vaccination Influenz a Vaccine (Season Ended) [facility] Start: 03-04-2024 Advance Directive Discussion Advance Directive Discussion [facility] Start: 11-03-2023 Covid-19 Vaccine ( season) Covid-19 Vaccine ( season) [facility] Start: 11-02-2022 Influenza vaccination INFLUENZA (#1) [facility] Start: 03-04-2022 ADVANCE DIRECTIVE DISCUSSION ADVANCE DIRECTIVE DISCUSSION [facility] Start: 03-04-2022 DEPRESSION ASSESSMENT DEPRESSION ASS ESSMENT [facility] Start: 2021 ADVANCE DIRECTIVE DISCUSSION ADVANCE DIRECTIVE DISCUSSION [facility] Start: 2021 BONE DENSITY BONE DENSITY [facility] Start: 2021 Screening for osteoporosis Bone Density Screening [facility] Start: 11-02-2021 Influenza vaccination INFLUENZA (#1) [facility] Start: 03-04-2021 DEPRESSION ASSESSMENT DEPRESSION ASS ESSMENT [facility] Start: 09-13-2016 Pneumococcal Vaccine : 50+ (2 of 2 - PCV) Pneumococcal Vaccine: 50+ (2 of 2 - PCV) [facility] Start: 11-09-2015 Shingrix Vaccine (2 of 3) Shingrix Vaccine (2 of 3) [facility] Start: 2006 SHINGRIX VACCINE (1 of 2) SHINGRIX VACCINE (1 of 2) [facility] Start: 2001 COLOGUARD (FIT-DNA) COLOGUARD (FIT-D NA) [facility] Start: 2001 Colonoscopy COLONOSCOPY [facility] Start: 2001 COLORECTAL CANCER SCREENING COLORECTAL CANCER SCREENING [facility] Start: [address] COLONOGRAPHY [facility] Start: 2001 DIABETES SCREEN DIABETES SCREEN [facility] Start: 2001 Diabetes Screening Diabetes Screenin g [facility] Start: 2001 FECAL OCCULT BLOOD FECAL OCCULT BLOO D [facility] Start: 2001 Lipid panel Lipid Screening [facility] Start: 2001 LIPID SCREEN LIPID SCREEN [facility] Start: 2001 Screening for malign ant neoplasm of colon [facility] Start: 2001 SIGMOIDOSCOPY SIGMOIDOSCOPY [facility] Start: 1996 Mammography MAMMOGRAM [facility] Start: 1996 Screening for malign ant neoplasm of breast Mammogram Screening [facility] Start: 12-13-1975 Urine microalbumin profile DTAP,TDAP,TD (1 - Tdap) [facility] Start: 1974 Anxiety Screening Anxiety Screening [facility] Start: 1974 Depression Screening Depression Scre ening [facility] Start: 1974 HEPATITIS C SCREENING HEPATITIS C [facility] Start: 1974 Hepatitis C screening Hepatitis C [facility] Start: 1974 HIV SCREENING HIV SCREENING [facility] Start: 1962 PNEUMOCOCCAL: 65+ (1 - PCV) PNEUMOCOCCAL: 65+ (1 - PCV) [facility] Start: 06-12-1957 COVID-19 VACCINE (#1) COVID-19 VACCI NE (#1) [facility] Bacteria identified in Urine by Culture BACTERIAL CULTURE, URINE Microbiology Routine UTI symptoms Ordered: 08/22/2024 [facility] Work Phone: Comment on above: Ordered: 08/22/2024 Bacteria identified in Urine by Culture BACTERIAL CULTURE, URINE Microbiology Routine UTI symptoms Ordered: 08/24/2024 [facility] Work Phone: Comment on above: Ordered: 08/24/2024 Patient Education ED Abdominal P ain Unkn Cause Fem [facility] Work Phone: [facility] Immunizations Immunization Date Immunization Notes Care Provider Debbie rubin 08-30-2023 tetanus toxoid, redu jocelyn diphtheria toxoid, and acellular pertussis vaccine, adsorbed ARTURO SHANTAJan DO [facility] 12-28-2016 influenza virus vaccine, unspecified formulation To Alcaraz ALEX.PROTOTYPE ENGINEER MANAGER Work Phone: [facility] Payers Date Payer Category Payer Self-pay 2023 Unknown [id number] 2021 Private Health Insurance [id number] 2015 Private Health Insurance [id number] 1955 Unknown [id number] 2.16.8 [id number] 1955 Unknown [id number] 2.16.8 [id number] 1955 Unknown [id number] 2.16.8 [id number] 1955 Unknown [id number] 2.16.8 40.1.967316.3.579.2.627 1955 Unknown [id number] 2.16. [id number] 1955 Unknown [id number] 2.16. [id number] 1955 Unknown [id number] 2.16. [id number] 1955 Unknown [id number] 2.16. 840.1.683717.3.579.2.732 Unknown [id number] Unknown [id number] 2.16.8 40.1.005375.3.579.2.462 Unknown [id number] 2.16.8 40.1.063770.3.579.2.462 Unknown [id number] 2.16.8 40.1.498710.3.579.2.462 Unknown [id number] 2.16.8 40.1.986005.3.579.2.462 Unknown [id number] 2.16.8 40.1.010075.3.579.2.462 Unknown [id number] 2.16.8 40.1.300768.3.579.2.462 Unknown [id number] 2.16.8 40.1.335306.3.579.2.462 Unknown [id number] 2.16.8 40.1.420553.3.579.2.462 Unknown [id number] 2.16.8 40.1.221468.3.579.2.462 Unknown [id number] 2.16.8 40.1.456487.3.579.2.462 Unknown [id number] 2.16.8 40.1.259743.3.579.2.462 Social History Date Type Detail Facility Start: 12-08-2018 Tobacco smoking status Heavy t obacco smoker (finding) [facility] Start: 1955 Sex Assigned At Female A [facility] Start: 07-04-2021 Tobacco smoking status Ex-smoker (fi nding) [facility] Start: 01-09-2022 End: 12-07-2024 Tobacco smoking status NCIS Smokes tobacco daily [facility] Work Phone: History of tobacco use Cigarette Smoker [facility] Work Phone: Start: 01-09-2022 Tobacco use and exposure Smokeless tobacco non-user [facility] Work Phone: Start: 1955 Sex Assigned At Not on file [facility] Start: 12-30-2021 End: 01-09-2022 Exposure to SARS-CoV-2 (event) Not sure [facility] Start: 01-09-2022 End: 08-22-2024 History of Social function [facility] Start: 01-09-2022 End: 08-22-2024 Tobacco use panel [facility] Start: 04-23-2023 End: 12-22-2024 Tobacco smoking status Light tobacco smoker (finding) [facility] Sexual O[facility] Start: 01-26-2019 Sex Female (finding) [facility] NEGATED: Highlighted rowStart: NINF History of tobacco use Passive smoker [facility] Work Phone: Functional Status Date Assessment Result Facility 08-30-2023 Functional Status Independent [facility] 08-30-2023 Functional Status Standard Safet y ID band on, Call device within reach, Bed in low position, Wheels locked [facility] Mental Status Date Assessment Result Facility 12-24-2024 Cognitive function Awake [facility] Work Phone: 12-07-2024 Cognitive function Level Of Consciousness Awake [facility] Work Phone: 08-30-2023 Mental Status Orientation Oriented x 4 [facility] 08-30-2023 Mental Status [facility] Clinical Notes 06-20-2021 to 12-22-2024 Note Date & Type Note Facility 12-22-2024 Progress note [facility] 12-22-2024 Progress note Note Date/Time December 22, 2024 4:30pm [facility] [address] [place] [id number] OFFICE VISIT Date of Service: 12/22/24 1424 MR#: [id number] Acct: [id number] Name: ESTELLA CHAO Rep #: [id number] : 1955 From: Ten hernandez MD Age/Sex: 69/F Location: [facility] Status: Signed HPI Subjective Date of Service [...] estimated to be 2.6 cm in axis. [facility] Medical History (Updated 12/22/24 @ 15:04 by [...] PO QDAY FOR ENERGY 12/22/24 History mv-mn [id number]-lvj-[id number] 1 tab PO DAILY SUPPLEMEN T 12/07/24 [...] no focal motor deficits Coordination / Balance: fejjpi-mf-tmua test normal Speech: speech normal Gait (Neuro): [...] 5. Follow-up after above. Ten Nogueira MD Rail Car Painter/Sandblaster, [facility] Divisions of Medical Oncology & Hematology Department of Internal Medicine [facility] [place] [address] This note was generated using a voice [...] DAVID Ling; Dr. Jeronimo Perez MD ~ [facility] Work Phone: 1(896) 784-299110-21-2025 Evaluation note* Diagnosis Onset Date Resolution Status Admit Date Anemia acute December 22, 2024 2:16pm Splenomegaly acute December 2:16pm Lymphadenopathy deleted December 032024 2:16pm Lymphadenopathy deleted December 032024 9:52am [facility] Work Phone: 1(395) 397-865810-06-2025 Discharge summary [facility] Medical Records Department [address] [place] [address] Emergency Department Summary 12/07/24 MR#: [id number] Acct: [id number] Name: ESTELLA CHAO Rep #:[id number] : 1955 68 From: Crispin Subramanian MD PCP: Ranjith Ling, CARD GAME OPERATOR-Morteza Sta tus:DEP ER Location: ED HPI History [...] in for her pain. [facility]. Patient is scheduled for an [...] tightness or heaviness. She denies dyspnea or [place] exertion. Denies orthopnea or PND. She does report swelling of her ankles recently. Patient has no history of alcohol use or cirrhosis. Prior similar symptoms: Yes Recent Illness/Hospitalization: Yes (Seen by PCP approximately 2 weeks ago. Hercreatinine at that time was ely) [facility] Medical History Depression Emphysema lung COPD (chronic obstructive pulmonary disease) Postmenopausal Lymph node enlargement IBS (irritable bowel syndrome) Positive colorectal cancer screening using Cologuard test Anemia Acute distention of stomach Abdominal pain Celiac disease Hypertension Vitamin D deficiency Splenomegaly Home Medications ?Medication ?Instructions ?Recorded ?Last Taken ?Type cholecalciferol (vitamin D3) 1,250 1,250 mcg PO [facility] Desiya 11/26/24 11/25/24 History mcg (50,000 unit) capsule lisinopril 10 1 tab PO QDAY BLOOD PRESSURE 11/26/24 12/07/24 History mg-hydrochlorothiazide 12.5 mg tablet vitamin B complex 1 tab PO QDAY FOR ENERGY 12/06/24 History mv-mn [id number]-[id number]-iel-[id number] 1 tab PO DAILY SUPPLEMEN T 12/07/24 [...] (Auto) 63.7 Lymph % (Auto) 17.7 L [place] % (Auto) 15.3 H Eos % (Auto) [...] release (DR/EC) 40 mg PO DAILY mv-mn 450-DJ-lw0-lqz-wjv-wjsg [Centrum ] 1 tab PO DAILY Primary Care Provider: Ranjith Ling NP Referrals: Ranjith Ling NP, CARD GAME OPERATOR-C [Primary Care Provider, Family Practice] - 1-2 Weeks Activity Restrictions/Additional Instructions: Keep appointment for outpatient MRI. Print Language: Ugandan Disposition Disposition: Home, Self Care Discharge Date/Time: 12/07/24 15:05 What to do if you have Problems For any increased pain, shortness of breath, bleeding, nausea or vomiting, chestpain, or any unexpected problems, contact your Primary Care Provider. Call [facility] ([phone]) or report tothe closest Emergency Room. Call 911 if necessary. 12/07/24 1525 Cosigner Signature (if applicable): CC: DAVID Ling ~ Signed [facility]10-06-2025 Discharge summary Author Crispin Subramanian [facility] Note Date/Time December 07, 2024 3: 05pm [facility] Medical Records Department [address] [place] [address] Emergency Department Summary 12/07/24 MR#: [id number] Acct: [id number] Name: ESTELLA CHAO Rep #:[id number] : 1955 68 From: Crispin Subramanian [...] in for her pain. She was seenat [facility]. Patient is scheduled for an [...] tightness or heaviness. She denies dyspnea or [place] exertion. Denies orthopnea or PND. She does report swelling of her ankles recently. Patient has no history of alcohol use or cirrhosis. Prior similar symptoms: Yes Recent Illness/Hospitalization: Yes (Seen by PCP approximately 2 weeks ago. Hercreatinine at that time was ely) [facility] Medical History Depression Emphysema lung COPD (chronic [...] PO QDAY FOR ENERGY 12/06/24 History mv-mn 500-GT-fw1-awk-sgm-knkt 1 tab PO DAILY SUPPLEMEN T 12/07/24 [...] (Auto) 63.7 Lymph % (Auto) 17.7 L [place] % (Auto) 15.3 H Eos % (Auto) [...] tablet,delayed release (DR/EC) 40 mg PO DAILY -md 226-[id number]-ix6-exr-xpu-vavs [Centrum ] 1 tab PO DAILY Primary Care Provider: Ranjith Ling NP Referrals: Ranjith Ling NP, CARD GAME OPERATOR-C [Primary Care Provider, Family Practice] - 1-2 Weeks Activity Restrictions/Additional Instructions: Keep appointment for outpatient MRI. Print Language: Ugandan Disposition Disposition: Home, Self Care Discharge Date/Time: 12/07/24 15:05 What to do if you have Problems For any increased pain, shortness of breath, bleeding, nausea or vomiting, chestpain, or any unexpected problems, contact your Primary Care Provider. Call [facility] ([phone]) or report to the closest Emergency Room. Call 911 if necessary. 12/07/24 1525 <Electronically signed by Crispin Subramanian MD> Cosigner Signature (if applicable): CC: DAVID Ling ~ Signed [facility] Work Phone: 1(979) 743-876109-23-2025 Evaluation + Plan note Diagnostic Tests Pending * Gliadin Antibody 11/24/24 * HEMAL Panel 11/24/24 * Tissue Transglutaminase Ab (IGA) 11/24/24 * Helicobacter Pylori Antibody 11/24/24 * J-6-Yaivsltrkna 11/24/24 * TENZIN by IFA Screen 11/24/24 [...] w/ contrast 07/07/24 * MRI Liver 11/24/24 [facility] 09-23-2025 Evaluation + Plan note Future Scheduled [...] w/ contrast 07/07/24 * MRI Liver 11/24/24 [facility] 06-23-2025 Telephone encounter Note* Telephone Encounter - Cammie Bay LPN - 08/24/2024 11:22 AM EDT Patient returned call and went over results, notes from express care provider with understanding. [facility]06-23-2025 Miscellaneous Notes* Telephone Encounter - Cammie Bay [...] with PCP Please advise documented in [facility] encounterHol[facility] Telephone encounter Note * Telephone Encounter - Keyona Adams MA - 08/24/2024 7:39 AM EDT Left message for patient to return call. Keyona Adams MA [facility]06-23-2025 Telephone encounter Note* Telephone Encounter - Sole Villa APRN.CNP - 08/24/2024 7:07 AM EDT Urine culture reveals mixed bacteria. This can occur during collection when skin contaminants are in the container. Recommend patient provide new specimen (order has been placed) Present to express care as nurse visit for a new urine sample Follow up with PCP Please advise [facility]06-21-2025 Instructions* Patient Instructions* To Alcaraz APRN.CNP - [...] R10.9 - Increase fiber in diet - Ellery low residue diet - IBUPROFEN 400 MG [...] any other concerning symptoms documented in this [facility]Hol[facility]2025 NoteHNO ID: [id number] Author: TO ALCARAZ APRN.CNP Service: ? Author [...] if pain severe or uncontrollable To Alcaraz APRN.PROTOTYPE ENGINEER MANAGER -I have reviewed and updated with the [...] The patient was discharged. OTC Medications were advised:[facility]06-21-2025 History of Present illness Narrative* To Alcaraz [...] OTC Medications were advised: documented in this encounterHol[facility]06[facility] Hospital Discharge instructions Patient Education 08/30/2023 15:26:55 [...] work areas and walkways clear and uncluttered. [id number] [employer]. [address] [place] [address], [place] [address]. All rights reserved. This information is not intended as a substitute for professional medical care. Always follow yourhealthcare professional's instructions. Follow Up Care 08/30/2023 13:35:25 With:KONG TRIANA Address: [facility] [place] [address]- When:2-4 days With:RANJITH LING APRN - PROTOTYPE ENGINEER MANAGER Address: [address] [place] [address]- When:2-4 days [facility] 06-28-2024 Note Discharge Instructions Thank you for allowing [facility] to assist you with your healthcare needs. The following is importantdischarge information regarding your hospital visit. Diagnosis from Today's Visit Fall What to Do Next Instructions from Your Care Team No qualifying data available. Post Acute Orders No qualifying data available. You Need to Schedule the Following Appointments Follow Up with KONG TRIANA When:Within 2-4 days Where:[facility] [place] [address]- Follow Up with RANJITH LING TOOL DRESSER - PROTOTYPE ENGINEER MANAGER When:Within 2-4 days Where:[address] [place] [id number]- Allergies Avelox terbinafine Fatigue, Fever, Rash Immunizations [...] work areas and walkways clear and uncluttered. [id number] [employer]. [address] [place] [address], [place] [address]. All rights reserved. This information is not intended as a substitute for professional medical care. Always follow yourhealthcare professional's instructions. Additional Information VACCINATE! IT SAVES LIVES! Members of the community who have not yet received the COVID-19 vaccine and would like to receive it can visit one of [facility] vaccine clinics. There are many vaccine clinic locations within the [facility]. For locations and available times, please visit www.gettheshot.coronavirus.[place].gov/. It is important to note that some COVID mobile vaccine clinics are held outdoors and may be canceled in rainy or stormy conditions. To learn more about pediatric vaccinations (ages 5-11), we invite you to visit the [facility] webpage. https://www.[facility].org/pages/1333-Fjheu-Nqrrnqfxoqa-Xbuqbwqara-Yzria-Sxw stions.htmlTo learn more about the COVID-19 vaccine, we invite you to visit the CDC website for a list of frequently asked questions. https://www.cdc.gov/coronavirus/2019-ncov/vaccines/faq.html [facility] Patient Portal Access Instructions: Stay connected with your healthcare team and access your personal medical information anytime with the [email or web address] Patient Portal. If you would like a full copy of your medical records please contact the [facility] Medical Records Department Saturday through Saturday between 8a.m. and 4:30p.m. Please follow the directions below to access the portal: 1.Access the email account you provided upon registration to the hospital.2.Look for an invitation email from [facility].3.Open the email and access the invitation link: Accept Invitation to [email or web address].Fill in the required viramontes to create your account. Sign into www.[employer] with your username and password that you [...] you will allow to register on the [email or web address] Patient Portal for access to your information. You can also access the [email or web address] Patient Portal on the sourceasy. Simply click on Health Records under Facebook and then click on the [employer] logo. [...] Call your local pharmacy or go to http://[email or web address]/8V7Nb6o to find one close to you.3.Make use of household items: Use cat litter or old coffee grounds to dispose medications if other options arenot available. Mix your drugs with these household products, seal them in an airtight container andthrow it into the garbage. Call [facility]: [phone] to be sure your drugs can be [...] aware that I should contact my doctor. Patient/Oxygraph Operator Signature: Date/Time: Relationship to Patient: Witness Name/Signature: Date/Time: [facility]06-28-2024 Note ORIGINAL EXAMINATION: CT OF THE HEAD [...] Reason for Exam: fall with headstrike FINDINGS: Forestry Adviser (topogram) images: Unremarkable BRAIN/VENTRICLES: No evidence of [...] 3:13:29 PM Ordering Provider: HEAVEN [facility]11-09-2022 Miscellaneous Notes* Telephone Encounter - Bon King [...] ER. Bonny Pena APRN.CNP documented in this encounterHol[facility]04-19-2022 HCoV 229E RNA TAB+non- probe Ql (Nph)Not [...] MA Mammo Screening Bilateral w/ Yoshi 03/28/21 [facility] Evaluation + Plan note Future Appointments Appointment Date:07/11/2021 01:40:00 PM Scheduled Provider:RANJITH LING APRN, CNP Location:[facility] Appointment Type:PC OV Appointment Date:09/21/2021 10:30:00 AM Scheduled Provider: Location:[facility] Appointment Type:PC Nurse Lab Appointment Date:09/26/2021 01:40:00 PM Scheduled Provider:RANJITH LING APRN, CNP Location:[facility] Appointment Type:PC OV Follow Up Future [...] Chest 2 Views (PA & Lateral) 07/04/21 [facility] [place] [employer] Boot[employer]uation + Plan note Future Appointments Appointment Date:10/22/2023 01:20:00 PM Scheduled Provider:RANJITH LING APRN, CNP Location:[facility] Appointment Type: Wellness Annual Future Scheduled [...] Low Dose Lung Cancer Screening (LDCT) 10/09/22 [facility] Evaluation + Plan note Future Appointments Appointment Date:11/26/2023 01:00:00 PM Scheduled Provider:RANJITH LING APRN, CNP Location:[facility] [place] Appointment Type: Wellness Annual Future Scheduled Tests Laboratory* Complete Blood Count 03/21/23 * Albumin/Creatinine Ratio, Random Urine 03/21/23 * Vitamin D Level 03/21/23 * Complete Metabolic Panel 03/21/23 [facility] Evaluation + Plan note Future Appointments Appointment [...] w/ contrast 07/07/24 * MRV Abdomen 12/03/24 [facility] Evaluation note* Diagnosis Tobacco use disorder- Primary documented in this encounter [facility] note* Diagnosis UTI symptoms- Primary Other symptoms involving urinary system Acute left flank pain Abdominal pain, unspecified site [facility] Diagnosis UTI symptoms- Primary Other symptoms involving urinary system documented in this encounter [facility] noteNo assessment information availableWOhio [facility] Work Phone: Hospital course Narrative No data available for this section [facility] Hospital Discharge instructions No data available for this section [facility] Hospital Discharge instructionsAdditional Instructions Keep appointment for outpatient MRI.[facility] Work Phone: Hospital Discharge instructionsAmbulatory Orders* General Surgery Location: None [facility] Work Phone: Progress note No data available for this section [facility] Reason for referral (narrative)No reason for referral information availableWOhio Valley Surgical Hospital Work Phone: Health Concerns Infection Onset Date [...] Do you have a Healthcare Power of Deputy Insurance Commissioner? No December 07, 2024 12:45pm Advance Directive Response Recorded Date/ Time Do you have a Healthcare Power of Deputy Insurance Commissioner? No December 07, 2024 11:45am Chief Complaint [...] Care Team (unrecognized sect ion and content) Chemistry Laboratory Technician Relationship Specialty Start Date End Date Ranjith Ling, PROTOTYPE ENGINEER MANAGER [address] [place] [address] PCP - General Family Medicine 01/09/22 Chemistry Laboratory Technician Relationship Specialty Start Date End Date Ranjith Ling, PROTOTYPE ENGINEER MANAGER [address] [facility] [place] [address] PCP - General Family Medicine 01/09/22 Chemistry Laboratory Technician Relationship Specialty Start Date End Date Ranjith Ling, PROTOTYPE ENGINEER MANAGER [address] [facility] [place] [address] PCP - General Family Medicine 01/09/22 Chemistry Laboratory Technician Relationship Specialty Start Date End Date Ranjith Ling, PEDRO [address] [facility] [place] [address] PCP - General Family Medicine 01/09/22 Team Status: Active Member Role/Relationship Status Dates Ranjith Ling CARD GAME OPERATOR, CARD GAME OPERATOR-C Primary care physicia n Active Team Status: Inactive Member Role/Relationship Status Dates Ranjith Ling CARD GAME OPERATOR, CARD GAME OPERATOR-C Primary care physician Active Start: November 17, 2024 End: November 17, 2024 Dr. Jeronimo Perez MD Attending physician Active Start: November 17, 2024 End: November 17, 2024 Dr. Jeronimo Perez MD Referring Provider Active Start: November 17, 2024 End: November 17, 2024 Team Status: Active Member Role/Relationship Status Dates Ranjith Ling CARD GAME OPERATOR, CARD GAME OPERATOR-C Primary care physician Active Start: November 26, 2024 Allegra Hylton Attending physician Active Start: November 26, 2024 Team Status: Inactive Member Role/Relationship Status Dates Ranjith Ling CARD GAME OPERATOR, CARD GAME OPERATOR-C Primary care physician Active Start: December End: December 07, 2024 Dr. Crispin Subramanian MD Emergency Department Physician Active Start: December 07, 2024 End: December 07, 2024 Team Status: Inactive Member Role/Relationship Status Dates Ranjith Ling CARD GAME OPERATOR, CARD GAME OPERATOR-C Primary care physician Active Start: December End: December 07, 2024 Dr. Crispin Subramanian MD Attending physician Active St art: December 07, 2024 End: December 07, 2024 Dr. Crispin Subramanian MD Emergency Department Physician Active Start: December 07, 2024 End: December 07, 2024 Team Status: Inactive Member Role/Relationship Status Dates Ranjith Ling CARD GAME OPERATOR, CARD GAME OPERATOR-C Primary care physician Active Start: December 222024 End: December 22, 2024 Ranjith Ling CARD GAME OPERATOR, CARD GAME OPERATOR-C Referring Provider Active Start: December 22, 2024 End: December 22, 2024 Dr. Ten Nogueira MD Attending physician Active Start: December 22, 2024 End: December 22, 2024 Team Status: Inactive Member Role/Relationship Status Dates Ranjith Ling CARD GAME OPERATOR, CARD GAME OPERATOR-C Primary care physician Active Start: December 292024 End: December 29, 2024 Ranjith Ling CARD GAME OPERATOR, CARD GAME OPERATOR-C Referring Provider Active Start: December 29, 2024 End: December 29, 2024 Dr. Cassy Andrea MD Attending physician Active Start: December 29, 2024 End: December 29, 2024 Team Status: Active Member Role/Relationship Status Dates Ranjith Ling NP, CARD GAME OPERATOR-C Primary care physician Active Start: December 292024 Dr. Ten Nogueira MD Attending physician Active Start: December 29, 2024 Dr. Ten Nogueira MD Referring Provider Active Start: December 29, 2024 Team Status: Active Member Role/Relationship Status Dates Ranjith Ling NP, CARD GAME OPERATOR-C Primary care physician Active Start: December 292024 Dr. Cassy Andrea MD Attending physician Active Start: December 29, 2024 Dr. Cassy Andrea MD Referring Provider Active Start: December 29, 2024 Team Status: Active Member Role/Relationship Status Dates Ranjith Ling CARD GAME OPERATOR, CARD GAME OPERATOR-C Primary care physician Active Start: January 062024 [...] or prosecute any alcohol or drug abuse patient.[facility] HospitalIn the event this information is protected by the Federal Confidentiality of Alcohol and Drug Abuse Patient Records regulations: The Federal rules restrict any use of the information to criminally investigate or prosecute any alcohol or drug abuse patient.[facility] HospitalIn the event this information is protected by the Federal Confidentiality of Alcohol and Drug Abuse Patient Records regulations: The Federal rules restrict any use of the information to criminally investigate or prosecute any alcohol or drug abuse patient.[facility] HospitalIn the event this information is protected by the Federal Confidentiality of Alcohol and Drug Abuse Patient Records regulations: The Federal rules restrict any use of the information to criminally investigate or prosecute any alcohol or drug abuse patient.[facility] Reason for Visit (unrecogniz ed section and content) Reason Comments Results Reason Comments Abdominal Pain left side abdominal back migrating into mid back x 1 week Reason Onset Date Comments Results 08/24/2024 INFORMATION SOURCE (unrecogn ized section and content) DATE CREATED AUTHOR 09/03/2023 [facility] ([place]) DATE CREATED AUTHOR AUTHOR'S ORGANIZ ATION 08/24/2024 [facility] DATE CREATED AUTHOR AUTHOR'S ORGANIZ ATION 08/29/2024 [employer] DATE CREATED AUTHOR AUTHOR'S ORGANIZ ATION 12/21/2024 [facility] DATE CREATED AUTHOR AUTHOR'S ORGANIZ ATION 01/13/2025 [facility] Goals (unrecognized section and content) Goals may [...] BE BASED ON THE PRIMARY CLINICAL RECORDS. [employer] provides no warranty or guarantee of the accuracy or completeness of information in this document.
--- OUTSIDE RECORDS SUMMARY | 2025-01-24 23:39 | XMS RPT_ITS | CCD ---
Author Organization [facility] Care Team Providers Care Road Grader Name Role Phone RANJITH HINES APRN, CNP Primary Care Phys ician Ranjith Ling CNP Primary Care Provider Ranjith Ling CNP Primary Care Provider [phone] ANURADHA JOHNSON - RANJITH VASQUEZ Primary Care [...] - RANJITH VASQUEZ Primary Care U navailable CokeRanjith engle CNP Primary Care Provider RANJITH LING Primary Care Unavailable TO ALCARAZ Attending Unavailable RANJITH LING Referring Unavailable PROVIDER, UNKNOWN Attending Unavailable PROVIDER, UNKNOWN Admitting Unavailable Anuradha THERAPIST PHYS-CRanjith Primary Care Physi lalitha Dr. Jeronimo Perez MD Attending Physician [phone] Dr. Jeronimo Perez MD Referring Provider Allegra Hylton Attending Physician Unavailable Moris LOPEZ, Dr. Roa Emergency Department Physician ANURADHA JOHNSON - RANJITH VASQUEZ Attending U navailable ANURADHAKAMARI JOHNSON - RANJITH VASQUEZ Primary Care U navailable ANURADHA MASTER MACHINIST - REFERRAL AND INFORMATION AIDERANJITH Attending U navailable ANURADHA MASTER MACHINIST - REFERRAL AND INFORMATION AIDE, RANJITH Smith Primary Care U navailable ANURADHA MASTER MACHINIST - REFERRAL AND INFORMATION AIDE, RANJITH Smith Primary Care U navailable ANURADHA MASTER MACHINIST - REFERRAL AND INFORMATION AIDE, RANJITH Smith Attending U navailable Anuradha THERAPIST PHYS-C, Ranjith Maximus Primary Care Physi lalitha Nelida LOPEZ, Dr. Decker Attending Physician Nelida LOPEZ, Dr. Decker Referring Provider Allegra Hylton Attending Physician Unavailable Moris LOPEZ, Dr. Roa Attending Physician [phone] Moris LOPEZ, Dr. Roa Emergency Department Physician Anuradha THERAPIST PHYS-C, Ranjith Stroud Referring Provider Jero LOPEZ, Dr. Caal Attending Physician Emre LOPEZ, Dr. Madera Attending Physician Jero LOPEZ, Dr. Caal Referring Provider Emre LOPEZ, Dr. Madera Referring Provider Coke, Ranjith Maximus Referring Unavail able Anuradha, Ranjith Stroud Primary Care Unavail able Cassy Andrea Attending Unavailable Anuradha, Ranjith Marcelinonis Referring Unavail able BriannekarTen lr Attending Unavailable Anuradha, Ranjith Marcelinonis Primary Care Unavail able Anuradha, Ranjith Stroud Primary Care Unavail able Cassy Andrea Attending Unavailable BriannekarTen lr Attending Unavailable Briannekarus, Ten Referring Unavailable Coke, Ranjith Marcelinonis Primary Care Unavail able IsckarusTen Attending Unavailable Isckarus, Mansour Referring Unavailable Coke, Ranjith Stroud Primary Care Unavail able Jeronimo Perez Attending Unavailable Nelida, Jeronimo Referring Unavailable Coke, Ranjith Marcelinonis Primary Care Unavail able Anuradha, Ranjith Maximus Consulting Unavail able Jeronimo Perez Attending Unavailable Joribour, Jeronimo Referring Unavailable Anuradha, Ranjith Maximus Primary Care Unavail able Coke, Ranjith Maximus Primary Care Unavail able RobotCassy zarate Attending Unavailable Robottessa Cassy Referring Unavailable Coke, Ranjith Maximus Primary Care Unavail able Crispin Subramanian Attending Unavailable Allegra Hylton Attending Unavailable Anuradha, Ranjith Maximus Primary Care Unavail able Anuradha, Ranjith Maximus Primary Care Unavail able Isckarus, Mansour Attending Unavailable Ranjith Ling Referring Unavail able Allergies Allergy Classification Reported Allergen(s) Allergy Type Date of Onset Reaction(s) Facility (15 sources) moxifloxacin; Translations: [moxifloxacin] Drug Allergy 2 Hives [facility] (13 sources) terbinafine; Translations: [terbinafine] Drug Allergy 2 Hives, Fatigue (finding), Fever (finding), Eruption of skin (disorder) [facility] Work Phone: (1 source) moxifloxacin Drug Allergy 5 [facility] (1 source) terbinafine Drug Allergy 5 [facility] Medications Current Medications Medication Drug Class(es) Dates Sig (Normalized) Sig (Original) acetaminophen 325 mg / HYDROcodone bitartrate 5 mg oral tablet (2 sources) Opioid Agonist Start: 11-24-2024 End: 11-29-2024 take 1 tablet by mouth every six hours as needed for pain [place] 325- 5 mg oral tablet Dose = 1 tab(s), Oral, q6h, PRN for pain, Fill Date: 11/24/2024, X 5 day(s), # 20 tab(s), 0 Refill(s), Pharmacy: [facility], T-cell lymphoma, 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, cm, 11/24/24 12:54:00 EDT, Height, 47.4, kg, 11/24/24 12:54:00 EDT, Dosing Weight Start Date: 11/24/24 Stop Date: 11/29/24 Status: Ordered Medication Dispense Status: Completed Quantity: 20.0 Unit: tab(s) Total Allowed Fills: 1 Fills Dispensed: 0 Indications: Non-Hodgkin lymphoma, unspecified, unspecified site; [id number] 200 actuat albuterol 0.09 mg/actuat metered dose inhaler (6 sources) beta2-Adrenergic Agonist Start: 12-08-2021 albuterol HFA (PROVENTIL HFA, VENTOLIN HFA) 90 mcg/actuation inhaler 12/08/2021 Active Start: 03-28-2021 End: 06-26-2021 take 1 puff(s) by inhalation every four hours ProAir HFA MDI (90 mcg/inh) inhalation aerosol 1 puff(s), Inhalation, q4h, # 8 gram(s), 2 Refill(s), Pharmacy: [facility], Acute bronchitis, 169.5, cm, 03/28/21 [...] q6h, # 18 gram(s), 0 Refill(s), Pharmacy: [facility], Acute bronchitis, 169.5, cm, 07/04/21 [...] tab(s), 0 Refill(s), 06/25/21 9:54:00 EDT, Pharmacy: [facility], Acute URI, 169.5, cm, 06/20/21 [...] qmonth, # 4 cap(s), 1 Refill(s), Pharmacy: [facility], Vitamin D deficiency, 167, cm, 09/15/24 [...] qmonth, # 4 cap(s), 1 Refill(s), Pharmacy: [facility], Vitamin D deficiency, 166, cm, 04/23/23 13:15:00 EST, Height, kg, 04/23/23 13:15:00 EST, Dosing Weight Start Date: 10/24/23 Stop Date: 04/21/24 Status: Ordered Start: 04-23-2023 End: 10-20-2023 cholecalciferol 1250 mcg (50 ,000 intl units) oral capsule Dose : 50,000 International_Unit = 1 cap(s), Oral, qmonth, # 4 cap(s), 1 Refill(s), Pharmacy: [facility], Vitamin D deficiency, 166, cm, 04/23/23 13:15:00 EST, Height, kg, 04/23/23 13:15:00 EST, Dosing Weight Start Date: 04/23/23 Stop Date: 10/20/23 Status: Ordered dexamethasone 6 mg oral tablet (2 sources) Corticosteroid Start: 07-04-2021 End: 07-14-2021 dexamethasone 6 mg oral tablet Dose : 6 mg = 1 tab(s), Oral, qDay, X 10 day(s), # 10 tab(s), 0 Refill(s), 07/14/21 13:40:00 EDT, Pharmacy: [facility], Acute bronchitis, 169.5, cm, 07/04/21 13:17:00 EDT, Height Start Date: 07/04/21 Stop Date: 07/14/21 Status: Ordered Start: 06-20-2021 End: 06-30-2021 dexamethasone 6 mg oral tabl et Dose : 6 mg = 1 tab(s), Oral, qDay, X 10 day(s), # 10 tab(s), 0 Refill(s), 06/30/21 9:54:00 EDT, Pharmacy: [facility], Acute URI, 169.5, cm, 06/20/21 9:22:00 EDT, Height Start Date: 06/20/21 Stop Date: 06/30/21 Status: Ordered doxycycline monohydrate 100 mg oral capsule (1 source) Tetracycline-class Drug Start: 07-04-2021 End: 07-14-2021 doxycycline monohydrate 100 mg oral capsule Dose : 100 mg = 1 cap(s), Oral, BID, X 10 day(s), # 20 cap(s), 0 Refill(s), 07/14/21 13:40:00 EDT, Pharmacy: [facility], Acute bronchitis, 169.5, cm, 07/04/21 13:17:00 EDT, Height, 48.1 Start Date: 07/04/21 Stop Date: 07/14/21 Status: Ordered 12 hr guaiFENesin 600 mg extended release oral tablet (2 sources) Start: 07-04-2021 End: 07-14-2021 guaiFENesin 600 mg oral tablet, extended release Dose : 600 mg = 1 tab(s), Oral, q12h, X 10 day(s), # 20 tab(s), 0 Refill(s), 07/14/21 13:40:00 EDT, Pharmacy: [facility], Acute bronchitis, 169.5, cm, 07/04/21 13:17:00 EDT, Height Start Date: 07/04/21 Stop Date: 07/14/21 Status: Ordered Start: 06-20-2021 End: 06-30-2021 guaiFENesin 600 mg oral tabl et, extended release Dose : 600 mg = 1 tab(s), Oral, q12h, X 10 day(s), # 20 tab(s), 0 Refill(s), 06/30/21 9:54:00 EDT, Pharmacy: [facility], Acute URI, 169.5, cm, 06/20/21 [...] qDay, # 90 tab(s), 1 Refill(s), Pharmacy: [facility], 166, cm, 04/23/23 13:15:00 EST, Height, kg, 04/23/23 13:15:00 EST, Dosing Weight Start Date: 10/24/23 Status: Ordered Start: 04-23-2023 take 1 tablet by delfin th once daily hydrochlorothiazide-lisinopril 12.5 mg-1 0 mg oral tablet Dose = 1 tab(s), Oral, qDay, # 90 tab(s), 1 Refill(s), Pharmacy: [facility], 166, cm, 04/23/23 13:15:00 EST, Height, kg, 04/23/23 13:15:00 EST, Dosing Weight Start Date: 04/23/23 Status: Ordered Start: 01-05-2022 lisinopril-hyd roCHLOROthiazide (PRINZIDE,ZESTORETIC) 10-12.5 mg per tablet 01/05/2022 Active Start: 03-28-2021 End: 12-23-2021 take 1 tablet by mouth once daily hydrochlorothiazide-lisinopril 12.5 mg-1 0 mg oral tablet Dose = 1 tab(s), Oral, qDay, # 90 tab(s), 2 Refill(s), Pharmacy: [facility], 169.5, cm, 03/28/21 13:30:00 EST, [...] 600 mg ta blet 10/05/2021 08/22/2024 Discontinued [facility] Medication (2 sources) Start: 12-09-2018 [facility] Medicatio n 1 tab, Daily, , 0 Refill(s) Start Date: 12/09/18 Status: Ordered mv-mn 717-JU-wa8-dha-epa-fis h (2 sources) Start: 12-07-2024 Start: 12-07-2024 mv-mn 115-FA-o f8-ivq-xdl-fish Active 1 {tbl} PO DAILY December 07, [...] qDay, # 90 tab(s), 1 Refill(s), Pharmacy: [facility], Celiac disease, 167, cm, 09/15/24 [...] nausea, # 30 tab(s), 0 Refill(s), Pharmacy: [facility], 169.5, cm, 06/20/21 9:22:00 EDT, [...] to exam dated: 12/14/2011 mammogram - [facility]. The tissue of both breasts is [...] to exam dated: 12/14/2011 mammogram - [facility]. The tissue of both breasts is [...] Automatedon 11-1 Anisocytosis Ql (Bld) 1+ Normal [facility] Comment on above: Performed By: #### L 300.3900, L300.4310, L101.9900, L3410.2400, L100.0500, L501.6710, L500.4050 #### [facility] [address] [place], [address] PLT EST MOD DEC Normal ADEQ [facility] Comment on above: Performed By: #### L 300.3900, L300.4310, L101.9900, L3410.2400, L100.0500, L501.6710, L500.4050 #### [facility] [address] [place], [address] Comprehensive Metabolic Prof ilon 01-11-2025 Albumin [Mass/Vol] 3.0 g/dL Low 3.4-4.8 [facility] Comment on above: Performed By: #### L 300.3900, L300.4310, L101.9900, L3410.2400, L100.0500, L501.6710, L500.4050 #### [facility] [address] [place], [address] Albumin/Globulin [Mass ratio] 1.2 {ratio} Normal 0.9-2.4 [facility] Comment on above: Performed By: #### L 300.3900, L300.4310, L101.9900, L3410.2400, L100.0500, L501.6710, L500.4050 #### [facility] [address] [place], [address] ALK PHOS 234 U/L High 35-104 [facility] Comment on above: Performed By: #### L 300.3900, L300.4310, L101.9900, L3410.2400, L100.0500, L501.6710, L500.4050 #### [facility] [address] [place], [address] ALT [Catalytic activity/Vol] 46 U/L High <=34 [facility] Comment on above: Performed By: #### L 300.3900, L300.4310, L101.9900, L3410.2400, L100.0500, L501.6710, L500.4050 #### [facility] [address] [place], [address] AST [Catalytic activity/Vol] 84 U/L High <=31 [facility] Comment on above: Performed By: #### L 300.3900, L300.4310, L101.9900, L3410.2400, L100.0500, L501.6710, L500.4050 #### [facility] [address] [place], [address] Bilirubin [Mass/Vol] 1.11 mg/dL Normal 0.00-1.[address] [facility] Comment on above: Performed By: #### L 300.3900, L300.4310, L101.9900, L3410.2400, L100.0500, L501.6710, L500.4050 #### [facility] [address] [place], [address] BUN/CRE 23.2 RATIO High 10-20 [facility] Comment on above: Performed By: #### L 300.3900, L300.4310, L101.9900, L3410.2400, L100.0500, L501.6710, L500.4050 #### [facility] [address] [place], [address] Calcium [Mass/Vol] 10.6 mg/dL Normal 7.6-11.0 [facility] Comment on above: Performed By: #### L 300.3900, L300.4310, L101.9900, L3410.2400, L100.0500, L501.6710, L500.4050 #### [facility] [address] [place], [address] Chloride [Moles/Vol] 102 mmol/L Normal 98-[address] [facility] Comment on above: Performed By: #### L 300.3900, L300.4310, L101.9900, L3410.2400, L100.0500, L501.6710, L500.4050 #### [facility] [address] [place], [address] CO2 [Moles/Vol] 24.3 mmol/L Normal 21.0-32.0 [facility] Comment on above: Performed By: #### L 300.3900, L300.4310, L101.9900, L3410.2400, L100.0500, L501.6710, L500.4050 #### [facility] [address] [place], [address] ( Creatinine [Mass/Vol] 1.39 mg/dL High 0.70-1.20 [facility] Comment on above: Performed By: #### L 300.3900, L300.4310, L101.9900, L3410.2400, L100.0500, L501.6710, L500.4050 #### [facility] [address] [place], [place], [id number] (998) ECRCL 31.07 ml/min Low 50-250 [facility] Comment on above: Performed By: #### L 300.3900, L300.4310, L101.9900, L3410.2400, L100.0500, L501.6710, L500.4050 #### [facility] [address] [place], [place], [id number] (429) GAP 16 High 5-15 [facility] Comment on above: Performed By: #### L 300.3900, L300.4310, L101.9900, L3410.2400, L100.0500, L501.6710, L500.4050 #### [facility] [address] [place], [place], [id number] (614) GFR/1.73 sq M.predicted among non-blacks MDRD (S/P/Bld) [Vol rate/Area] 41 mL/min/{1.73_m2} Low >60 [facility] Comment on above: Result Comment: mL/m in/1.73m2 CKD-EPI Creatinine Equation (2020) Performed By: #### L 300.3900, L300.4310, L101.9900, L3410.2400, L100.0500, L501.6710, L500.4050 #### [facility] [address] [place], [address] Globulin (S) [Mass/Vol] 2.5 g/dL Normal 2.2-4.2 [facility] Comment on above: Performed By: #### L 300.3900, L300.4310, L101.9900, L3410.2400, L100.0500, L501.6710, L500.4050 #### [facility] [address] [place], [address] Glucose [Mass/Vol] 84 mg/dL Normal 70-99 [facility] Comment on above: Performed By: #### L 300.3900, L300.4310, L101.9900, L3410.2400, L100.0500, L501.6710, L500.4050 #### [facility] [address] [place], [address] Potassium [Moles/Vol] 3.7 mmol/L Normal 3.3-5.1 [facility] Comment on above: Performed By: #### L 300.3900, L300.4310, L101.9900, L3410.2400, L100.0500, L501.6710, L500.4050 #### [facility] [address] [place], [address] Sodium [Moles/Vol] 142 mmol/L Normal 133-145 [facility] Comment on above: Performed By: #### L 300.3900, L300.4310, L101.9900, L3410.2400, L100.0500, L501.6710, L500.4050 #### [facility] [address], [address] T PROT 5.5 g/dL Low 5.9-8.4 [facility] Comment on above: Performed By: #### L 300.3900, L300.4310, L101.9900, L3410.2400, L100.0500, L501.6710, L500.4050 #### [facility] [address] [place], [address] Urea nitrogen [Mass/Vol] 32 mg/dL High 4-19 [facility] Comment on above: Performed By: #### L 300.3900, L300.4310, L101.9900, L3410.2400, L100.0500, L501.6710, L500.4050 #### [facility] [address] [place], [address] Oncology Visit Reporton 01-02 Oncology Visit Report [facility] [address] [place], [place] [address] OFFICE VISIT Date of Service: 01/11/25 1459 MR#: [id number] Acct: [id number] Name: ESTELLA CHAO Rep #: [id number] : 1955 From: Ten Nogueira MD Age/Sex: 69/F Location: [facility] Status: Signed HPI Subjective Date of [...] with mantle cell lymphoma, p53 wild type. [facility] Medical History (Updated 01/11/25 @ 15:45 by [...] 01/11/25 15:03 (more content not included)... Normal [facility] Chest WITH Contraston 2024 Chest WITH Contrast [facility] [address] [place] [id number] Chest WITH Contrast MR#: [id number] Acct: [id number] Name: ESTELLA CHAO Rep #: [id number] : 1955 F 69 From: Roby munguia MD PCP: Ranjith Ling, THERAPIST PHYS-C Status: REG CLI Study: Chest WITH Contrast Date of Exam: 01/06/25 Exam# [id number] Ordering Dr: Ten Nogueira MD PROCEDURE: CHEST [...] at the left lung base. Reading Location: [id number] CC: THERAPIST PHYSEstephania Ling; Dr. Ten Nogueira MD Clinical Safety Manager: Signed Normal [facility] Anion gap in Serum or Plasma Ordered By: Ten Nogueira on 12-29-2024 Anion gap [Moles/Vol] 15 mmol/L 07-16 [facility] BUN/creatinine ratioOrdered By: Ten Nogueira on 12-29-2024 Urea nitrogen/Creatinine [Mass ratio] 21.0 mg/mg High 12-21 [facility] Basic Metabolic Profile (BMP )on 12-29-2024 BUN/CRE 21.0 RATIO High 12-21 [facility] Comment on above: Performed By: #### L 300.3900, L300.4310, L101.9900, L3410.2400, L100.0500, L501.6710, L500.4050 #### [facility] [address] [place] [address] [address] [place], [place], [id number] Calcium [Mass/Vol] 10.4 mg/dL Normal 7.6-11.0 [facility] Comment on above: Performed By: #### L 300.3900, L300.4310, L101.9900, L3410.2400, L100.0500, L501.6710, L500.4050 #### [facility] [address] [place], [address] Chloride [Moles/Vol] 102 mmol/L Normal 98-[address] [facility] Comment on above: Performed By: #### L 300.3900, L300.4310, L101.9900, L3410.2400, L100.0500, L501.6710, L500.4050 #### [facility] [address] [place], [address] CO2 [Moles/Vol] 27.1 mmol/L Normal 21.0-32.0 [facility] Comment on above: Performed By: #### L 300.3900, L300.4310, L101.9900, L3410.2400, L100.0500, L501.6710, L500.4050 #### [facility] [address] [place], [address] Creatinine [Mass/Vol] 1.03 mg/dL Normal 0.70-1.20 [facility] Comment on above: Performed By: #### L 300.3900, L300.4310, L101.9900, L3410.2400, L100.0500, L501.6710, L500.4050 #### [facility] [address] [place], [address] ECRCL 41.92 ml/min Low 50-250 [facility] Comment on above: Performed By: #### L 300.3900, L300.4310, L101.9900, L3410.2400, L100.0500, L501.6710, L500.4050 #### [facility] [address] [place], [address] GAP 15 Normal 5-15 [facility] Comment on above: Performed By: #### L 300.3900, L300.4310, L101.9900, L3410.2400, L100.0500, L501.6710, L500.4050 #### [facility] [address] [place], [address] GFR/1.73 sq M.predicted among non-blacks MDRD (S/P/Bld) [Vol rate/Area] 59 mL/min/{1.73_m2} Low >60 [facility] Comment on above: Result Comment: mL/m in/1.73m2 CKD-EPI Creatinine Equation (2020) Performed By: #### L 300.3900, L300.4310, L101.9900, L3410.2400, L100.0500, L501.6710, L500.4050 #### [facility] [address] [place], [address] Glucose [Mass/Vol] 91 mg/dL Normal 70-99 [facility] Comment on above: Performed By: #### L 300.3900, L300.4310, L101.9900, L3410.2400, L100.0500, L501.6710, L500.4050 #### [facility] [address] [place], [address] Potassium [Moles/Vol] 3.9 mmol/L Normal 3.3-5.1 [facility] Comment on above: Performed By: #### L 300.3900, L300.4310, L101.9900, L3410.2400, L100.0500, L501.6710, L500.4050 #### [facility] [address] [place], [address] Sodium [Moles/Vol] 144 mmol/L Normal 133-145 [facility] Comment on above: Performed By: #### L 300.3900, L300.4310, L101.9900, L3410.2400, L100.0500, L501.6710, L500.4050 #### [facility] [address] [place], [address] Urea nitrogen [Mass/Vol] 22 mg/dL High 4-19 [facility] Comment on above: Performed By: #### L 300.3900, L300.4310, L101.9900, L3410.2400, L100.0500, L501.6710, L500.4050 #### [facility] [address] [place], [place], [id number] Carbon dioxide, total [Moles /volume] in Central venous bloodOrdered By: Ten Nogueira on 12-29-2024 CO2 [Moles/Vol] 27.1 mmol/L 21.0-32.0 [facility] Chloride assayOrdered By: Felipe Nogueira on 12-29-2024 Chloride [Moles/Vol] 102 mmol/L 98-[address] [facility] Glomerular filtration rate ( GFR) estimation/1.73 sq m using serum, plasma, or whole bOrdered By: Ten Nogueira on 12-29-2024 GFR/1.73 sq M.predicted among non-blacks MDRD (S/P/Bld) [Vol rate/Area] 59 mL/min/{1.73_m2} Low >60 [facility] Comment on above: mL/min/1.73m2 CKD-EP I Creatinine Equation (2020) L350.1820on 12-29-2024 Path. Sent [facility] SEE PATHOLOGY REPORT Normal [facility] Comment on above: Order Comment: RESUL TS FAXED TO DR ANDREA 01/11/25 Kimberlee59 Josh Webster. Result Comment: Spec imen sent to [facility] Pathology Department. Report available in EMR. Performed By: #### L 300.3900, L300.4310, L101.9900, L3410.2400, L100.0500, L501.6710, L500.4050 #### [facility] [address] [place], [address] L501.2276on 12-29-2024 Ionized Calcium 1.30 mmol/L Normal 1.09-1.30 [facility] Comment on above: Performed By: #### L 300.3900, L300.4310, L101.9900, L3410.2400, L100.0500, L501.6710, L500.4050 #### [facility] [address] [place], [address] Potassium measurement (mass/ volume)Ordered By: Ten Nogueira on 12-29-2024 Potassium (Unsp spec) [Mass/Vol] 3.9 mmol/L 3.3-5.1 [facility] Serum creatinine measurement (mass/volume)Ordered By: Ten Nogueira on 12-29-2024 Creatinine [Mass/Vol] 1.03 mg/dL 0.70-1.20 [facility] Serum glucose measurement (m ass/volume)Ordered By: Ten Nogueira on 12-29-2024 Glucose [Mass/Vol] 91 mg/dL 70-99 [facility] Serum or plasma calcium matt urement (mass/volume)Ordered By: Ten Nogueira on 12-29-2024 Calcium [Mass/Vol] 10.4 mg/dL 7.6-11.0 [facility] Comment on above: *Additional results available. Contact laboratory/see report* Serum or plasma urea nitroge n measurement (mass/volume)Ordered By: Ten Nogueira on 12-29-2024 Urea nitrogen [Mass/Vol] 22 mg/dL High 4-19 [facility] Sodium levelOrdered By: Aneta Nogueira on 12-29-2024 Sodium [Moles/Vol] 144 mmol/L 133-145 [facility] Surgery Visit Reporton 12-29 Surgery Visit Report [facility] [address] [place], [place] [address] OFFICE VISIT Date of Service: 12/29/24 MR#: [id number] Acct: [id number] Name: ESTELLA CHAO Rep #: [id number] : 1955 Provider: Dr. Cassy zarate MD Age/Sex: 69/F Location: [facility] Status: Signed Intake Vital Signs 12/22/24 14:33 [...] QDAY FOR ENERGY 11/26/24 12/29/24 History mv-mn 160-UX-ef4-dha-epa-fi sh 1 tab PO DAILY SUPPLEMENT 12/07/24 [...] History (Updated 12/22/24 @ 14:32 by Allegra yHlton) Smoking Status: Light Smoker (<10/day) Tobacco: How [...] and no acute distress Nutritional Appearance: cachectic HENSD Head: normocephalic and atraumatic Neck Neck: supple [...] Status: ment (more content not included)... Normal [facility] Folates, RBCon 12-24-2024 Fol.,Hemolysate > 620.0 Normal Not Estab. [facility] Comment on above: Performed By: #### L 300.3900, L300.4310, L101.9900, L3410.2400, L100.0500, L501.6710, L500.4050 #### [facility] [address] [place], [place], [id number] Folate, RBC > 2074 Normal >498 [facility] Comment on above: Result Comment: Perf ormed at: [facility] [address] [id number] Residential Coordinator: Jeronimo Means PhD, Phone: [phone] Performed By: #### L 300.3900, L300.4310, L101.9900, L3410.2400, L100.0500, L501.6710, L500.4050 #### [facility] [address] [place], [place], [id number] Hematocrit (Bld) [Volume fraction] 29.9 % Low 34.0-46.6 [facility] Comment on above: Performed By: #### L 300.3900, L300.4310, L101.9900, L3410.2400, L100.0500, L501.6710, L500.4050 #### [facility] [address] [place], [address] L501.0895on 12-24-2024 Calcium [Mass/Vol] 11.8 mg/dL High 7.6-11.0 [facility] Comment on above: Performed By: #### L 300.3900, L300.4310, L101.9900, L3410.2400, L100.0500, L501.6710, L500.4050 #### [facility] [address] [place], [address] L501.2276on 12-24-2024 Ionized Calcium 1.46 mmol/L High 1.09-1.30 [facility] Comment on above: Performed By: #### L 300.3900, L300.4310, L101.9900, L3410.2400, L100.0500, L501.6710, L500.4050 #### [facility] [address] [place], [address] PTHINon 12-24-2024 PTH 7 pg/mL Low 11-61 [facility] Comment on above: Performed By: #### L 300.3900, L300.4310, L101.9900, L3410.2400, L100.0500, L501.6710, L500.4050 #### [facility] [address] [place], [address] Urine Cultureon 12-24-2024 URC Presumptive E. coli Sarah Ann Count >100,000 Presumptive E. coli: REACTION Ampicillin [...] TMP SMX Islt EDEN <=20 S Normal [facility] Comment on above: Performed By: #### L 300.3900, L300.4310, L101.9900, L3410.2400, L100.0500, L501.6710, L500.4050 #### [facility] [address] [place], [address] Absolute lymphocyte countOrd ered By: Anetamarissa Nogueira on 12-22-2024 Lymphocytes Auto (Unsp spec) [#/Vol] 1.08 10*3/uL 0.83-4.51 [facility] Absolute neutrophil countOrd ered By: [facility] on 12-22-2024 Neutrophils (Bld) [#/Vol] 3.0 10*3/uL 2.0-7.7 [facility] Amorphous sediment detection in urine sediment by light microscopyOrdered By: Ten Nogueira on 12-22-2024 Amorphous sediment LM Ql (Urine sed) 2+ [facility] Automated lymphocyte count a s percentage of total leukocytesOrdered By: Ten Nogueira on 12-22-2024 Lymphocytes/100 WBC Auto (Unsp spec) 20.8 % 19- [facility] Basophil percentageOrdered B y: Ten Nogueira on 12-22-2024 Basophils/100 WBC (Bld) 1.9 % High 0-1 [facility] Bilirubin Test strip Ql (U)O rdered By: Ten Nogueira on 12-22-2024 Bilirubin Ql (U) Negative Negative [facility] Bilirubin, totalOrdered By: [facility] on 12-22-2024 Bilirubin [Mass/Vol] 0.96 mg/dL 0.00-1.[address] [facility] Blood manual differential co mment interpretation (narrative result)Ordered By: Ten Nogueira on 12-22-2024 Manual differential comment Johnathon (Bld) [Interp] SCANNED [facility] Blood polychromasia detectio n by light microscopyOrdered By: Ten Nogueira on 12-22-2024 Polychromasia LM Ql (Bld) 1+ [facility] CBC W/Diff, Automatedon 12-03 Anisocytosis Ql (Bld) 2+ Normal [facility] Comment on above: Performed By: #### L 300.3900, L300.4310, L101.9900, L3410.2400, L100.0500, L501.6710, L500.4050 #### [facility] [address] [place], [address] HYPOCHROMASIA 1+ Normal [facility] Comment on above: Performed By: #### L 300.3900, L300.4310, L101.9900, L3410.2400, L100.0500, L501.6710, L500.4050 #### [facility] [address] [place], [address] PLT EST MOD DEC Normal ADEQ [facility] Comment on above: Performed By: #### L 300.3900, L300.4310, L101.9900, L3410.2400, L100.0500, L501.6710, L500.4050 #### [facility] [address] [place], [address] POLYCHROMASIA 1+ Normal [facility] Comment on above: Performed By: #### L 300.3900, L300.4310, L101.9900, L3410.2400, L100.0500, L501.6710, L500.4050 #### [facility] [address] [place], [place], [id number] SMEAR COMMENT SCANNED Normal [facility] Comment on above: Performed By: #### L 300.3900, L300.4310, L101.9900, L3410.2400, L100.0500, L501.6710, L500.4050 #### [facility] [address] [place], [address] Comprehensive Metabolic Prof [facility] 12-22-2024 Albumin [Mass/Vol] 3.6 g/dL Normal 3.4-4.8 [facility] Comment on above: Performed By: #### L 300.3900, L300.4310, L101.9900, L3410.2400, L100.0500, L501.6710, L500.4050 #### [facility] [address] [place], [address] Albumin/Globulin [Mass ratio] 1.4 {ratio} Normal 0.9-2.4 [facility] Comment on above: Performed By: #### L 300.3900, L300.4310, L101.9900, L3410.2400, L100.0500, L501.6710, L500.4050 #### [facility] [address] [place], [address] ALK PHOS 290 U/L High 35-104 [facility] Comment on above: Performed By: #### L 300.3900, L300.4310, L101.9900, L3410.2400, L100.0500, L501.6710, L500.4050 #### [facility] [address] [place], [address] ALT [Catalytic activity/Vol] 138 U/L High <=34 [facility] Comment on above: Performed By: #### L 300.3900, L300.4310, L101.9900, L3410.2400, L100.0500, L501.6710, L500.4050 #### [facility] [address] [place], [address] AST [Catalytic activity/Vol] 197 U/L High <=31 [facility] Comment on above: Performed By: #### L 300.3900, L300.4310, L101.9900, L3410.2400, L100.0500, L501.6710, L500.4050 #### [facility] [address] [place], [address] Bilirubin [Mass/Vol] 0.96 mg/dL Normal 0.00-1.[address] [facility] Comment on above: Performed By: #### L 300.3900, L300.4310, L101.9900, L3410.2400, L100.0500, L501.6710, L500.4050 #### [facility] [address] [place], [address] BUN/CRE 22.3 RATIO High 10-20 [facility] Comment on above: Performed By: #### L 300.3900, L300.4310, L101.9900, L3410.2400, L100.0500, L501.6710, L500.4050 #### [facility] [address] [place], [address] Calcium [Mass/Vol] 12.2 mg/dL High 7.6-11.0 [facility] Comment on above: Performed By: #### L 300.3900, L300.4310, L101.9900, L3410.2400, L100.0500, L501.6710, L500.4050 #### [facility] [address] [place], [address] Chloride [Moles/Vol] 99 mmol/L Normal 98-[address] [facility] Comment on above: Performed By: #### L 300.3900, L300.4310, L101.9900, L3410.2400, L100.0500, L501.6710, L500.4050 #### [facility] [address] [place], [address] CO2 [Moles/Vol] 25.9 mmol/L Normal 21.0-32.0 [facility] Comment on above: Performed By: #### L 300.3900, L300.4310, L101.9900, L3410.2400, L100.0500, L501.6710, L500.4050 #### [facility] [address] [place], [address] Creatinine [Mass/Vol] 0.99 mg/dL Normal 0.70-1.20 [facility] Comment on above: Performed By: #### L 300.3900, L300.4310, L101.9900, L3410.2400, L100.0500, L501.6710, L500.4050 #### [facility] [address] [place], [address] GAP 18 High 5-15 [facility] Comment on above: Performed By: #### L 300.3900, L300.4310, L101.9900, L3410.2400, L100.0500, L501.6710, L500.4050 #### [facility] [address] [place], [address] GFR/1.73 sq M.predicted among non-blacks MDRD (S/P/Bld) [Vol rate/Area] 62 mL/min/{1.73_m2} Normal >60 [facility] Comment on above: Result Comment: mL/m in/1.73m2 CKD-EPI Creatinine Equation (2020) Performed By: #### L 300.3900, L300.4310, L101.9900, L3410.2400, L100.0500, L501.6710, L500.4050 #### [facility] [address] [place], [address] Globulin (S) [Mass/Vol] 2.6 g/dL Normal 2.2-4.2 [facility] Comment on above: Performed By: #### L 300.3900, L300.4310, L101.9900, L3410.2400, L100.0500, L501.6710, L500.4050 #### [facility] [address] [place], [address] Glucose [Mass/Vol] 83 mg/dL Normal 70-99 [facility] Comment on above: Performed By: #### L 300.3900, L300.4310, L101.9900, L3410.2400, L100.0500, L501.6710, L500.4050 #### [facility] [address] [place], [address] Potassium [Moles/Vol] 3.9 mmol/L Normal 3.3-5.1 [facility] Comment on above: Performed By: #### L 300.3900, L300.4310, L101.9900, L3410.2400, L100.0500, L501.6710, L500.4050 #### [facility] [address] [place], [address] Sodium [Moles/Vol] 143 mmol/L Normal 133-145 [facility] Comment on above: Performed By: #### L 300.3900, L300.4310, L101.9900, L3410.2400, L100.0500, L501.6710, L500.4050 #### [facility] [address] [place], [address] T PROT 6.2 g/dL Normal 5.9-8.4 [facility] Comment on above: Performed By: #### L 300.3900, L300.4310, L101.9900, L3410.2400, L100.0500, L501.6710, L500.4050 #### [facility] [address] [place], [address] Urea nitrogen [Mass/Vol] 22 mg/dL High 4-19 [facility] Comment on above: Performed By: #### L 300.3900, L300.4310, L101.9900, L3410.2400, L100.0500, L501.6710, L500.4050 #### [facility] [address] [place], [address] Eosinophil percentageOrdered By: Ten Nogueira on 12-22-2024 Eosinophils/100 WBC (Bld) 0.8 % 0-5 [facility] Erythrocyte distribution wid th ratioOrdered By: Ten Nogueira on 12-22-2024 Erythrocyte distribution width (RBC) [Ratio] 18.1 % High 11.6-14.6 [facility] Erythrocyte distribution wid th standard deviationOrdered By: Ten Nogueira on 12-22-2024 Erythrocyte distribution width (RBC) [Ratio] 65.2 fl High 35.1-43.9 [facility] Erythrocyte folate measureme nt with hematocritOrdered By: Ten Nogueira on 12-22-2024 Hematocrit (Bld) [Volume fraction] 29.9 % Low 34.0-46.6 [facility] Ferritinon 12-22-2024 Ferritin [Mass/Vol] 630 ng/mL High 22-378 [facility] Comment on above: Performed By: #### L 300.3900, L300.4310, L101.9900, L3410.2400, L100.0500, L501.6710, L500.4050 #### [facility] [address] [place], [address] HIVon 12-22-2024 HIV Non-Reactive Normal Nonreactive [facility] Comment on above: Result Comment: Non- Reactive Reactive Repeatedly reactive samples must be confirmed according to CDC recommended confirmatory algorithms. The subresults for either HIVAG or AHIV can be used as an aid in the selection of the confirmation algorithm for reactive samples. Send out specimens with Reactive results to [facility] for confirmation. Order the HIV antibody detection and differentiation: #[id number] Performed By: #### L 300.3900, L300.4310, L101.9900, L3410.2400, L100.0500, L501.6710, L500.4050 #### [facility] [address] [place], [address] Hematocrit Auto (Bld) [Volum e fraction]Ordered By: Ten Nogueira on 12-22-2024 Hematocrit (Bld) [Volume fraction] 31.6 % Low 37-47 [facility] Hemoglobin measurementOrdere d By: Ten Nogueira on 12-22-2024 Hemoglobin (Bld) [Mass/Vol] 9.7 g/dL Low 12.0-15.0 [facility] Hypochromatic red blood cell detectionOrdered By: Ten Nogueira on 12-22-2024 Hypochromia Ql (Bld) 1+ [facility] Immature granulocytes/100 WB C Auto (Bld)Ordered By: Ten Nogueira on 12-22-2024 Immature granulocytes/100 WBC (Bld) 2.300 % High 0.0-0.9 [facility] Comment on above: IG% - Immature Granu locytes (promyelocytes, myelocytes and metamyelocytes) > 1% indicates that a LEFT SHIFT is Present. Immature platelet percentage Ordered By: Ten Nogueira on 12-22-2024 Platelets reticulated/100 platelets Auto (Bld) 3.2 % 1.0-7.9 [facility] Comment on above: Low PLT + [...] (Unsp spec) [Mass/Mass] 49 ug/dL Low 50-170 [facility] Iron+Iron Binding Capacityon 12-22-2024 Iron [Mass/Vol] 49 ug/dL Low 50-170 [facility] Comment on above: Performed By: #### L 300.3900, L300.4310, L101.9900, L3410.2400, L100.0500, L501.6710, L500.4050 #### [facility] [address] [place], [place], [id number] IRON SATURATION 19.7 Normal 13-59 [facility] Comment on above: Performed By: #### L 300.3900, L300.4310, L101.9900, L3410.2400, L100.0500, L501.6710, L500.4050 #### [facility] [address] [place], [address] TIBC 249 ug/dL Low 250-450 [facility] Comment on above: Performed By: #### L 300.3900, L300.4310, L101.9900, L3410.2400, L100.0500, L501.6710, L500.4050 #### [facility] [address] [place], [address] UIBC 200 ug/dL Low 228-428 [facility] Comment on above: Performed By: #### L 300.3900, L300.4310, L101.9900, L3410.2400, L100.0500, L501.6710, L500.4050 #### [facility] [address] [place], [address] Ketones Test strip Ql (U)Ord ered By: Ten Nogueira on 12-22-2024 Ketones Ql (U) Negative Negative [facility] LDHon 12-22-2024 LDH 446 U/L High 84-246 [facility] Comment on above: Order Comment: 1 Performed By: #### L 300.3900, L300.4310, L101.9900, L3410.2400, L100.0500, L501.6710, L500.4050 #### [facility] [address] [place], [address] Laboratory - Chemistry and C hemistry - challengeOrdered By: Ten Nogueira on 12-22-2024 AST [Catalytic activity/Vol] 197 U/L High <32 [facility] - Hematology and Cell countsOrdered By: Ten Nogueira on 12-22-2024 Anisocytosis Ql (Bld) 2+ [facility] Lactate dehydrogenase (LDH) measurementOrdered By: Ten Nogueira on 12-22-2024 LDH [Catalytic activity/Vol] 446 U/L High 84-246 [facility] MCV (mean corpuscular volume ) determinationOrdered By: Ten Nogueira on 12-22-2024 MCV (RBC) [Entitic vol] 99.4 fL High 81-99 [facility] Magnesiumon 12-22-2024 Magnesium [Mass/Vol] 1.8 mg/dL Normal 1.5-2.[address] [facility] Comment on above: Performed By: #### L 300.3900, L300.4310, L101.9900, L3410.2400, L100.0500, L501.6710, L500.4050 #### [facility] [address] [place], [place], [id number] Magnesium measurement (mass/ volume)Ordered By: Ten Nogueira on 12-22-2024 Magnesium (Unsp spec) [Mass/Vol] 1.8 mg/dL 1.5-2.2 [facility] Mean corpuscular hemoglobin (MCH) determinationOrdered By: Ten Nogueira on 12-22-2024 MCH (RBC) [Entitic mass] 30.5 pg 27.0-32.0 [facility] Mean corpuscular hemoglobin concentration (MCHC) determinationOrdered By: Ten Nogueira on 12-22-2024 MCHC (RBC) [Mass/Vol] 30.7 g/dL Low 32-36 [facility] Mean platelet volume determi nationOrdered By: Ten Nogueira on 12-22-2024 Platelet mean volume (Bld) [Entitic vol] 10.9 fL 6.2-12.0 [facility] Microscopic analysis of urin e for red blood cells (RBC)Ordered By: Ten Nogueira on 12-22-2024 Microscopic analysis of urine for red blood cells (RBC) 0-5 SEEN /hpf 0-5 [facility] Monocyte percentageOrdered B y: Ten Nogueira on 12-22-2024 Monocytes/100 WBC (Bld) 16.0 % High 0-10 [facility] Mucus LM Ql (Urine sed)Order ed By: Ten Nogueira on 12-22-2024 Mucus Ql (Urine sed) 0 SEEN /hpf [facility] Neutrophil percentageOrdered By: Ten Nogueira on 12-22-2024 Neutrophils/100 WBC (Bld) 58.2 % 47-70 [facility] Nitrite Test strip Ql (U)Ord ered By: Ten Nogueira on 12-22-2024 Nitrite Ql (U) Positive High Negative [facility] No Panel InformationOrdered By: Ten Nogueira on 12-22-2024 HIV (1&2) Antibody Non-Reactive Nonreactive [facility] Comment on above: Non-ReactiveReactive Repeatedly reactive samples must be confirmed according to CDC recommended confirmatory algorithms. The subresults for either HIVAG or AHIV can be used as an aid in the selection of the confirmation algorithm for reactive samples.Send out specimens with Reactive results to [facility] for confirmation.Order the HIV antibody detection and differentiation: #[id number] Unsaturated Iron Binding Capacity 200 ug/dL Low 228-428 [facility] Nucleated red blood cell per centageOrdered By: Ten Nogueira on 12-22-2024 Nucleated RBC/100 WBC (Bld) [Ratio] 0.4 % 0-5 [facility] Oncology Visit Reporton 12-03 Oncology Visit Report [facility] [address] [place], [place] [address] [address] OFFICE VISIT Date of Service: 12/22/24 1424 MR#: [id number] Acct: [id number] Name: ESTELLA CHAO Rep #: [id number] : 1955 From: Ten Nogueira MD Age/Sex: 69/F [facility] Status: Signed HPI Subjective Date of [...] estimated to be 2.6 cm in axis. [facility] Medical History (Updated 12/22/24 @ 15:04 by [...] Temperature Source (more content not included)... Normal [facility] Phosphoruson 12-22-2024 Phosphate [Mass/Vol] 2.8 mg/dL Normal 2.7-4.[address] [facility] Comment on above: Performed By: #### L 300.3900, L300.4310, L101.9900, L3410.2400, L100.0500, L501.6710, L500.4050 #### [facility] [address] [place], [address] Platelet countOrdered By: Felipe Nogueira on 12-22-2024 Platelets (Bld) [#/Vol] 85 10*3/uL Low 150-450 [facility] Platelet estimateOrdered By: Ten Nogueira on 12-22-2024 Platelets LM Ql (Bld) MOD DEC ADEQ [facility] Protein Test strip Ql (U)Ord ered By: Ten Nogueira on 12-22-2024 Protein Ql (U) 30 mg/dl High Negative [facility] RBC Auto (Bld) [#/Vol]Ordere d By: Ten Nogueira on 12-22-2024 RBC (Bld) [#/Vol] 3.18 10*6/uL Low 4.2-5.4 [facility] Retic Panelon 12-22-2024 IM RET FRACTION 30.40 High 3.00-15.90 [facility] Comment on above: Performed By: #### L 300.3900, L300.4310, L101.9900, L3410.2400, L100.0500, L501.6710, L500.4050 #### [facility] [address] [place], [address] IPF 3.2 Normal 1.0-7.9 [facility] Comment on above: Result Comment: Low [...] L300.4310, L101.9900, L3410.2400, L100.0500, L501.6710, L500.4050 #### [facility] [address] [place], [address] RET-HE 34.4 pg Normal 30-35 [facility] Comment on above: Performed By: #### L 300.3900, L300.4310, L101.9900, L3410.2400, L100.0500, L501.6710, L500.4050 #### [facility] [address] [place], [address] Retic Count 3.74 High 0.5-1.5 [facility] Comment on above: Performed By: #### L 300.3900, L300.4310, L101.9900, L3410.2400, L100.0500, L501.6710, L500.4050 #### [facility] [place], [address] Reticulocyte hemoglobin equi valent (RET-He) measurementOrdered By: Ten Nogueira on 12-22-2024 Hemoglobin (Reticulocytes) [Entitic mass] 34.4 pg 30-35 [facility] Reticulocytes Auto (Bld) [#/ Vol]Ordered By: Ten Nogueira on 12-22-2024 Reticulocytes/100 RBC (Bld) 3.74 % High 0.5-1.5 [facility] Serum globulin measurementOr dered By: Ten Nogueira on 12-22-2024 Globulin (S) [Mass/Vol] 2.6 g/dL 2.2-4.2 [facility] Serum or plasma alanine baker otransferase (ALT) measurementOrdered By: Ten Nogueira on 12-22-2024 ALT [Catalytic activity/Vol] 138 U/L High <35 [facility] Serum or plasma albumin matt urement (mass/volume)Ordered By: Ten Nogueira on 12-22-2024 Albumin [Mass/Vol] 3.6 g/dL 3.4-4.8 [facility] Serum or plasma albumin/glob ulin mass ratioOrdered By: Ten Nogueira on 12-22-2024 Albumin/Globulin [Mass ratio] 1.4 {ratio} 0.9-2.4 [facility] Serum or plasma alkaline adama sphatase measurementOrdered By: Ten Nogueira on 12-22-2024 ALP [Catalytic activity/Vol] 290 U/L High 35-104 [facility] Serum or plasma ferritin claudia surement (mass/volume)Ordered By: Ten Nogueira on 12-22-2024 Ferritin [Mass/Vol] 630 ng/mL High 22-378 [facility] Serum or plasma iron saturat ion measurement (mass fraction)Ordered By: Ten Nogueira on 12-22-2024 Iron saturation [Mass fraction] 19.7 % 13-59 [facility] Squamous epithelial cells de tection in urine sediment by light microscopyOrdered By: Ten Nogueira on 12-22-2024 Epithelial cells.squamous LM Ql (Urine sed) 0-5 SEEN /hpf 5-10 [facility] Total proteinOrdered By: Ellis Nogueira on 12-22-2024 Protein [Mass/Vol] 6.2 g/dL 5.9-8.4 [facility] Urinalysis, Completeon 12-22 AMORPHOUS 2+ Normal [facility] Comment on above: Order Comment: MAGDIEL CTOR TO SPECIFY Performed By: #### L 300.3900, L300.4310, L101.9900, L3410.2400, L100.0500, L501.6710, L500.4050 #### [facility] [address] [place], [address] EPI,SQUAMOUS 0-5 SEEN Normal 07-11 [facility] Comment on above: Order Comment: MAGDIEL CTOR TO SPECIFY Performed By: #### L 300.3900, L300.4310, L101.9900, L3410.2400, L100.0500, L501.6710, L500.4050 #### [facility] [address] [place], [address] BACTERIA 2+ /hpf Normal None Seen [facility] Comment on above: Order Comment: MAGDIEL CTOR TO SPECIFY Performed By: #### L 300.3900, L300.4310, L101.9900, L3410.2400, L100.0500, L501.6710, L500.4050 #### [facility] [address] [place], [address] RBC 0-5 SEEN Normal 0-5 [facility] Comment on above: Order Comment: MAGDIEL CTOR TO SPECIFY Performed By: #### L 300.3900, L300.4310, L101.9900, L3410.2400, L100.0500, L501.6710, L500.4050 #### [facility] [address] [place], [address] WBC 10-25 SEEN Normal 0-5 [facility] Comment on above: Order Comment: MAGDIEL CTOR TO SPECIFY Performed By: #### L 300.3900, L300.4310, L101.9900, L3410.2400, L100.0500, L501.6710, L500.4050 #### [facility] [address] [place], [address] Mucus Ql (Urine sed) 0 SEEN Normal [facility] Comment on above: Order Comment: MAGDIEL CTOR TO SPECIFY Performed By: #### L 300.3900, L300.4310, L101.9900, L3410.2400, L100.0500, L501.6710, L500.4050 #### [facility] [address] [place], [place], [id number] Urine clarityOrdered By: Ellis Nogueira on 12-22-2024 Clarity (U) Cloudy Clear [facility] Urine color determinationOrd ered By: Ten Nogueira on 12-22-2024 Color (U) Yellow Yellow [facility] Urine cultureOrdered By: Ellis Nogueira on 12-22-2024 Bacteria identified Cx Nom (U) Presumptive E. coli Abnormal [facility] Urine glucose detectionOrder ed By: Ten Nogueira on 12-22-2024 Glucose Ql (U) Normal mg/dl Normal [facility] Urine leukocyte esterase det ection by dipstickOrdered By: Ten Nogueira on 12-22-2024 Leukocyte esterase Test strip Ql (U) 25 /ul High Negative [facility] Urine pHOrdered By: Ten Nogueira on 12-22-2024 pH (U) 6.0 [pH] 5.0 - 8.0 [facility] Urine sediment bacteria coun t by microscopy (number/high power field)Ordered By: Ten Nogueira on 12-22-2024 Bacteria LM.HPF (Urine sed) [#/Area] 2 /[HPF] None Seen [facility] Urine specific gravity measu rementOrdered By: Ten Nogueira on 12-22-2024 Specific gravity (U) [Rel density] 1.020 1.002-1.030 [facility] Urine urobilinogen measureme ntOrdered By: Ten Nogueira on 12-22-2024 Urobilinogen Ql (U) Normal mg/dl Normal [facility] Vitamin B12on 12-22-2024 Cobalamin (Vitamin B12) [Mass/Vol] 896 pg/mL Normal 180-914 [facility] Comment on above: Performed By: #### L 300.3900, L300.4310, L101.9900, L3410.2400, L100.0500, L501.6710, L500.4050 #### [facility] [address] [place], [address] Vitamin B12 ser/plasOrdered By: Ten Nogueira on 12-22-2024 Cobalamin (Vitamin B12) [Mass/Vol] 896 pg/mL 180-914 [facility] White blood cell (WBC) count Ordered By: Ten Nogueira on 12-22-2024 WBC (Bld) [#/Vol] 5.2 10*3/uL 4.4-11.0 [facility] White blood cell countOrdere d By: Ten Nogueira on 12-22-2024 White blood cell count 10-25 SEEN /hpf 0-5 [facility] MRI LIVERon 12-18-2024 MRI LIVER ORIGINAL [...] AM Ordering Provider: RANJITH LING Normal [facility] Absolute lymphocyte countOrd ered By: Crispin Subramanian on 12-07-2024 Lymphocytes Auto (Unsp spec) [#/Vol] 0.81 10*3/uL Low 0.83-4.51 [facility] Absolute neutrophil countOrd ered By: Crispinnakita Subramanian on 12-07-2024 Neutrophils (Bld) [#/Vol] 2.9 10*3/uL 2.0-7.7 [facility] Anion gap in Serum or Plasma Ordered By: Crispinnakita Subramanian on 12-07-2024 Anion gap [Moles/Vol] 15 mmol/L 5-15 [facility] Automated lymphocyte count a s percentage of total leukocytesOrdered By: Crispinnakita Subramanian on 12-07-2024 Lymphocytes/100 WBC Auto (Unsp spec) 17.7 % Low 19-41 [facility] BUN/creatinine ratioOrdered By: Crispinnakita Subramanian on 12-07-2024 Urea nitrogen/Creatinine [Mass ratio] 22.6 mg/mg High 10-20 [facility] Basophil percentageOrdered B y: Crispinnakita Subramanian on 12-07-2024 Basophils/100 WBC (Bld) 1.5 % High 0-1 [facility] Bilirubin, totalOrdered By: Crispinnakita Subramanian on 12-07-2024 Bilirubin [Mass/Vol] 0.73 mg/dL 0.00-1.[address] [facility] CBC W/Diff, Automatedon 10-0 PLT EST MOD DEC Normal ADEQ [facility] Comment on above: Performed By: #### L 300.3900, L300.4310, L101.9900, L3410.2400, L100.0500, L501.6710, L500.4050 #### [facility] [address] [place], [address] CRPon 12-07-2024 C-REACTIVE PROT 56.00 mg/L High 0.0-3.0 [facility] Comment on above: Performed By: #### L 300.3900, L300.4310, L101.9900, L3410.2400, L100.0500, L501.6710, L500.4050 #### [facility] [address] [place], [address] Carbon dioxide, total [Moles /volume] in Central venous bloodOrdered By: Crispinnakita Subramanian on 12-07-2024 CO2 [Moles/Vol] 25.6 mmol/L 21.0-32.0 [facility] Chloride assayOrdered By: Ug o Subramanian on 12-07-2024 Chloride [Moles/Vol] 101 mmol/L 98-[address] [facility] Comprehensive Metabolic Prof ilon 12-07-2024 Albumin [Mass/Vol] 3.4 g/dL Normal 3.4-4.8 [facility] Comment on above: Performed By: #### L 300.3900, L300.4310, L101.9900, L3410.2400, L100.0500, L501.6710, L500.4050 #### [facility] [address] [place], [address] Albumin/Globulin [Mass ratio] 1.2 {ratio} Normal 0.9-2.4 [facility] Comment on above: Performed By: #### L 300.3900, L300.4310, L101.9900, L3410.2400, L100.0500, L501.6710, L500.4050 #### [facility] [address] [place], [address] ALK PHOS 189 U/L High 35-104 [facility] Comment on above: Performed By: #### L 300.3900, L300.4310, L101.9900, L3410.2400, L100.0500, L501.6710, L500.4050 #### [facility] [address] [place], [address] ALT [Catalytic activity/Vol] 99 U/L High <=34 [facility] Comment on above: Performed By: #### L 300.3900, L300.4310, L101.9900, L3410.2400, L100.0500, L501.6710, L500.4050 #### [facility] [address] [place], [address] AST [Catalytic activity/Vol] 121 U/L High <=31 [facility] Comment on above: Performed By: #### L 300.3900, L300.4310, L101.9900, L3410.2400, L100.0500, L501.6710, L500.4050 #### [facility] [address] [place], [address] Bilirubin [Mass/Vol] 0.73 mg/dL Normal 0.00-1.[address] [facility] Comment on above: Performed By: #### L 300.3900, L300.4310, L101.9900, L3410.2400, L100.0500, L501.6710, L500.4050 #### [facility] [address] [place], [address] BUN/CRE 22.6 RATIO High 10-20 [facility] Comment on above: Performed By: #### L 300.3900, L300.4310, L101.9900, L3410.2400, L100.0500, L501.6710, L500.4050 #### [facility] [address] [place], [address] Calcium [Mass/Vol] 10.6 mg/dL Normal 7.6-11.0 [facility] Comment on above: Performed By: #### L 300.3900, L300.4310, L101.9900, L3410.2400, L100.0500, L501.6710, L500.4050 #### [facility] [address] [place], [address] Chloride [Moles/Vol] 101 mmol/L Normal 98-[address] [facility] Comment on above: Performed By: #### L 300.3900, L300.4310, L101.9900, L3410.2400, L100.0500, L501.6710, L500.4050 #### [facility] [address] [place], [address] CO2 [Moles/Vol] 25.6 mmol/L Normal 21.0-32.0 [facility] Comment on above: Performed By: #### L 300.3900, L300.4310, L101.9900, L3410.2400, L100.0500, L501.6710, L500.4050 #### [facility] [address] [place], [address] Creatinine [Mass/Vol] 1.25 mg/dL High 0.70-1.20 [facility] Comment on above: Performed By: #### L 300.3900, L300.4310, L101.9900, L3410.2400, L100.0500, L501.6710, L500.4050 #### [facility] [address] [place], [address] ECRCL 1.68 ml/min Invalid Interpretation Code 50-250 [facility] Comment on above: Performed By: #### L 300.3900, L300.4310, L101.9900, L3410.2400, L100.0500, L501.6710, L500.4050 #### [facility] [address] [place], [address] GAP 15 Normal 5-15 [facility] Comment on above: Performed By: #### L 300.3900, L300.4310, L101.9900, L3410.2400, L100.0500, L501.6710, L500.4050 #### [facility] [address] [place], [address] GFR/1.73 sq M.predicted among non-blacks MDRD (S/P/Bld) [Vol rate/Area] 47 mL/min/{1.73_m2} Low >60 [facility] Comment on above: Result Comment: mL/m in/1.73m2 CKD-EPI Creatinine Equation (2020) Performed By: #### L 300.3900, L300.4310, L101.9900, L3410.2400, L100.0500, L501.6710, L500.4050 #### [facility] [address] [place], [address] Globulin (S) [Mass/Vol] 2.9 g/dL Normal 2.2-4.2 [facility] Comment on above: Performed By: #### L 300.3900, L300.4310, L101.9900, L3410.2400, L100.0500, L501.6710, L500.4050 #### [facility] [address] [place], [address] Glucose [Mass/Vol] 90 mg/dL Normal 70-99 [facility] Comment on above: Performed By: #### L 300.3900, L300.4310, L101.9900, L3410.2400, L100.0500, L501.6710, L500.4050 #### [facility] [address] [place], [address] Potassium [Moles/Vol] 3.9 mmol/L Normal 3.3-5.1 [facility] Comment on above: Performed By: #### L 300.3900, L300.4310, L101.9900, L3410.2400, L100.0500, L501.6710, L500.4050 #### [facility] [address] [place], [address] Sodium [Moles/Vol] 142 mmol/L Normal 133-145 [facility] Comment on above: Performed By: #### L 300.3900, L300.4310, L101.9900, L3410.2400, L100.0500, L501.6710, L500.4050 #### [facility] [address] [place], [address] T PROT 6.3 g/dL Normal 5.9-8.4 [facility] Comment on above: Performed By: #### L 300.3900, L300.4310, L101.9900, L3410.2400, L100.0500, L501.6710, L500.4050 #### [facility] [address], [address] Urea nitrogen [Mass/Vol] 28 mg/dL High 4-19 [facility] Comment on above: Performed By: #### L 300.3900, L300.4310, L101.9900, L3410.2400, L100.0500, L501.6710, L500.4050 #### [facility] [address] [place], [address] Emergency Department Summary on 12-07-2024 Emergency Department Summary [facility] Medical Records Department [address] [place] [address] Emergency Department Summary 12/07/24 MR#: [id number] Acct: [id number] Name: ESTELLA CHAO Rep #: [id number] : [id number] 68 From: Crispin Subramanian MD PCP: Ranjith Ling, THERAPIST PHYS-C Status:DEP ER Location: ED HPI History of [...] for her pain. She was seen at [facility]. Patient is scheduled for an [...] tightness or heaviness. She denies dyspnea or [place] exertion. Denies orthopnea or PND. She does report swelling of her ankles recently. Patient has no history of alcohol use or cirrhosis. Prior similar symptoms: Yes Recent Illness/Hospitalizati on: Yes (Seen by PCP approximately 2 weeks ago. Her creatinine at that time was ely) [facility] Medical History Depression Emphysema lung COPD (chronic [...] QDAY FOR ENERGY 11/26/24 12/06/24 History mv-mn [id number] sh 1 tab PO DAILY SUPPLEMENT 12/07/24 [...] documented EXAM (more content not included)... Normal [facility] Eosinophil percentageOrdered By: Crispin Subramanian on 12-07-2024 Eosinophils/100 WBC (Bld) 1.1 % 0-5 [facility] Erythrocyte Sed Rateon 12-07 SED RATE 8 mm/hr Normal 0-30 [facility] Comment on above: Performed By: #### L 300.3900, L501.6710, L101.9900, L500.4050, L100.0100 #### [facility] [address] [place], [place], [address] Erythrocyte distribution wid th ratioOrdered By: Crispin Subramanian on 12-07-2024 Erythrocyte distribution width (RBC) [Ratio] 17.1 % High 11.6-14.6 [facility] Erythrocyte distribution wid th standard deviationOrdered By: Crispin Subramanian on 12-07-2024 Erythrocyte distribution width (RBC) [Ratio] 59.6 fl High 35.1-43.9 [facility] Erythrocyte sedimentation ra teOrdered By: Crispin Subramanian on 12-07-2024 ESR (Bld) [Velocity] 8 mm/h 0-[address] [facility] Glomerular filtration rate ( GFR) estimation/1.73 sq m using serum, plasma, or whole bOrdered By: Crispin Subramanian on 12-07-2024 GFR/1.73 sq M.predicted among non-blacks MDRD (S/P/Bld) [Vol rate/Area] 47 mL/min/{1.73_m2} Low >60 [facility] Comment on above: mL/min/1.73m2 CKD-EP I Creatinine Equation (2020) Hematocrit Auto (Bld) [Volum e fraction]Ordered By: Crispin Subramanian on 12-07-2024 Hematocrit (Bld) [Volume fraction] 30.5 % Low 37-47 [facility] Hemoglobin measurementOrdere d By: Crispin Subramanian on 12-07-2024 Hemoglobin (Bld) [Mass/Vol] 9.4 g/dL Low 12.0-15.0 [facility] Immature granulocytes/100 WB C Auto (Bld)Ordered By: Crispin Subramanian on 12-07-2024 Immature granulocytes/100 WBC (Bld) 0.700 % 0.0-0.9 [facility] Comment on above: IG% - Immature Granu locytes (promyelocytes, myelocytes and metamyelocytes) > 1% indicates that a LEFT SHIFT is Present. International normalized rat io (INR) calculationOrdered By: Crispin Subramanian on 12-07-2024 INR Coag (Bld) [Relative time] 1.0 {INR} [facility] - Chemistry and C hemistry - challengeOrdered By: Crispin Subramanian on 12-07-2024 AST [Catalytic activity/Vol] 121 U/L High <32 [facility] MCV (mean corpuscular volume ) determinationOrdered By: Crispin Subramanian on 12-07-2024 MCV (RBC) [Entitic vol] 97.1 fL 81-99 [facility] Mean corpuscular hemoglobin (MCH) determinationOrdered By: Crispin Subramanian on 12-07-2024 MCH (RBC) [Entitic mass] 29.9 pg 27.0-32.0 [facility] Mean corpuscular hemoglobin concentration (MCHC) determinationOrdered By: Crispin Subramanian on 12-07-2024 MCHC (RBC) [Mass/Vol] 30.8 g/dL Low 32-36 [facility] Mean platelet volume determi nationOrdered By: Crispin Subramanian on 12-07-2024 Platelet mean volume (Bld) [Entitic vol] 10.7 fL 6.2-12.0 [facility] Monocyte percentageOrdered B y: Crispin Subramanian on 12-07-2024 Monocytes/100 WBC (Bld) 15.3 % High 0-10 [facility] Neutrophil percentageOrdered By: Crispin Subramanian on 12-07-2024 Neutrophils/100 WBC (Bld) 63.7 % 47-70 [facility] Nucleated red blood cell per centageOrdered By: Crispin Subramanian on 12-07-2024 Nucleated RBC/100 WBC (Bld) [Ratio] 0 % 0-5 [facility] Platelet countOrdered By: Rex Subramanian on 12-07-2024 Platelets (Bld) [#/Vol] 88 10*3/uL Low 150-450 [facility] Platelet estimateOrdered By: Crispin Subramanian on 12-07-2024 Platelets LM Ql (Bld) MOD DEC ADEQ [facility] Potassium measurement (mass/ volume)Ordered By: Crispin Subramanian on 12-07-2024 Potassium (Unsp spec) [Mass/Vol] 3.9 mmol/L 3.3-5.1 [facility] Prothrombin Time w/INRon INR Coag (PPP) [Relative time] 1.0 {INR} Normal [facility] Comment on above: Performed By: #### L 300.3900, L501.6710, L101.9900, L500.4050, L100.0100 #### [facility] [address] [place], [address] PT Coag (PPP) [Time] 13.5 s Normal 11.7-14.[address] [facility] Comment on above: Performed By: #### L 300.3900, L501.6710, L101.9900, L500.4050, L100.0100 #### [facility] [address] [place], [address] Prothrombin timeOrdered By: Crispin Subramanian on 12-07-2024 PT Coag (PPP) [Time] 13.5 s 11.7-14.[address] [facility] RBC Auto (Bld) [#/Vol]Ordere d By: Crispin Subramanian on 12-07-2024 RBC (Bld) [#/Vol] 3.14 10*6/uL Low 4.2-5.4 [facility] Serum creatinine measurement (mass/volume)Ordered By: Crispin Subramanian on 12-07-2024 Creatinine [Mass/Vol] 1.25 mg/dL High 0.70-1.20 [facility] Serum globulin measurementOr dered By: Crispin Subramanian on 12-07-2024 Globulin (S) [Mass/Vol] 2.9 g/dL 2.2-4.2 [facility] Serum glucose measurement (m ass/volume)Ordered By: Crispin Subramanian on 12-07-2024 Glucose [Mass/Vol] 90 mg/dL 70-99 [facility] Serum or plasma C reactive p rotein measurement (mass/volume)Ordered By: Crispin Subramanian on 12-07-2024 CRP [Mass/Vol] 56.00 mg/L High 0.0-3.0 [facility] Serum or plasma alanine baker otransferase (ALT) measurementOrdered By: Crispin Subramanian on 12-07-2024 ALT [Catalytic activity/Vol] 99 U/L High <35 [facility] Serum or plasma albumin matt urement (mass/volume)Ordered By: Crispin Subramanian on 12-07-2024 Albumin [Mass/Vol] 3.4 g/dL 3.4-4.8 [facility] Serum or plasma albumin/glob ulin mass ratioOrdered By: Crispin Subramanian on 12-07-2024 Albumin/Globulin [Mass ratio] 1.2 {ratio} 0.9-2.4 [facility] Serum or plasma alkaline adama sphatase measurementOrdered By: Crispin Subramanian on 12-07-2024 ALP [Catalytic activity/Vol] 189 U/L High 35-104 [facility] Serum or plasma calcium matt urement (mass/volume)Ordered By: Crispin Subramanian on 12-07-2024 Calcium [Mass/Vol] 10.6 mg/dL 7.6-11.0 [facility] Serum or plasma urea nitroge n measurement (mass/volume)Ordered By: Crispin Subramanian on 12-07-2024 Urea nitrogen [Mass/Vol] 28 mg/dL High 4-19 [facility] Sodium levelOrdered By: Crispin Subramanian on 12-07-2024 Sodium [Moles/Vol] 142 mmol/L 133-145 [facility] Total proteinOrdered By: Crispin Subramanian on 12-07-2024 Protein [Mass/Vol] 6.3 g/dL 5.9-8.4 [facility] White blood cell (WBC) count Ordered By: Crispin Subramanian on 12-07-2024 WBC (Bld) [#/Vol] 4.6 10*3/uL 4.4-11.0 [facility] AATon 11-26-2024 W-5-Rtheigqtpgi 259 mg/dL High 101-187 [facility] Comment on above: Result Comment: Perf ormed At: [place] [id number] [place], [place] [id number] Miguelangel Decker PhD Ph:[phone] Performed By: #### G GT, HBSAG, HBCM, HCV1 #### [place] [address] #### CBC, ESR, LD, 278280, ANEU, CMP, GFR, URIC, ADIFF, ANAIFS #### [address] [address] ENDOon 11-26-2024 tTG IgA 3 units/ml Normal 0-3 [facility] Comment on above: Result Comment: Nega tive 0 - 3 Weak Positive 4 - 10 Positive >10 Tissue Transglutaminase (tTG) has been identified as the endomysial antigen. Studies have demonstr- ated that endomysial IgA antibodies have over 99% specificity for gluten sensitive enteropathy. Performed At: [facility] [address] [place], [place] [id number] Miguelangel Decker PhD Ph:[phone] Performed By: #### G GT, HBSAG, HBCM, HCV1 #### [place] [address] #### CBC, ESR, LD, 670197, ANEU, CMP, GFR, URIC, ADIFF, ANAIFS #### [address] [address] GLIADon 11-26-2024 Deam Gliad IgA Abs 5 units Normal 0-19 [facility] Comment on above: Result Comment: Nega tive 0 - 19 Weak Positive 20 - 30 Moderate to Strong Positive >30 Performed By: #### G GT, HBSAG, HBCM, HCV1 #### [address] [address] #### CBC, ESR, LD, 655370, ANEU, CMP, GFR, URIC, ADIFF, ANAIFS #### [address] [address] Deam Gliad IgG Abs 12 units Normal 0-19 [facility] Comment on above: Result Comment: Nega tive 0 - 19 Weak Positive 20 - 30 Moderate to Strong Positive >30 Performed At: [facility] [address] [place] [id number] Miguelangel Decker PhD Ph:[phone] Performed By: #### G GT, HBSAG, HBCM, HCV1 #### [place] [address] #### CBC, ESR, LD, 815585, ANEU, CMP, GFR, URIC, ADIFF, ANAIFS #### [place] [address] ANAIFSon 11-25-2024 Antinuclear Ab Screen Negative Normal Negative [facility] Comment on above: Result Comment: Anti -nuclear antibody test is used as an aid in diagnosis of systemic autoimmune diseases. Where positive and clinically warranted, follow-up using disease-specific testing is recommended. Low positive titers are not uncommon with advanced age, certain chronic infections, and malignancies among others. Test methodology: Indirect fluorescence immunoassay (IFA) using HEp-2 cells. Performed By: [facility] [employer] [place] [address] Residential Coordinator: Sukhdev Velazquez III, M.D. CLIA#: [id number] Performed By: #### G GT, HBSAG, HBCM, HCV1 #### [place] [address] #### CBC, ESR, LD, 649574, ANEU, CMP, GFR, URIC, ADIFF, ANAIFS #### [address] [address] ENA1on 11-25-2024 Centromere <0.2 Normal <1.0 [facility] Comment on above: Result Comment: Anti -centromere antibody is used as in aid in diagnosis of systemic sclerosis. Clinical correlation is required. Test Methodology: Multiplex flow immunoassay. Performed By: [facility] [employer] [facility] [place] [address] Residential Coordinator: Sukhdev Velazquez III, M.D. CLIA#: [id number] Performed By: #### G GT, HBSAG, HBCM, HCV1 #### [place] [address] #### CBC, ESR, LD, 588826, ANEU, CMP, GFR, URIC, ADIFF, ANAIFS #### [address] [address] Centromere Ab Qualitative Negative Normal Negative [facility] Comment on above: Result Comment: Perf ormed By: [place] [address] Residential Coordinator: Sukhdev Velazquez III, M.D. CLIA#: [id number] Performed By: #### G GT, HBSAG, HBCM, HCV1 #### [place] [address] #### CBC, ESR, LD, 561259, ANEU, CMP, GFR, URIC, ADIFF, ANAIFS #### [address] [address] Chromatin Ab Qualitative Negative Normal Negative [facility] Comment on above: Result Comment: Perf ormed By: [place] [address] Residential Coordinator: Sukhdev Velazquez III, M.D. CLIA#: [id number] Performed By: #### G GT, HBSAG, HBCM, HCV1 #### [place] [address] #### CBC, ESR, LD, 598562, ANEU, CMP, GFR, URIC, ADIFF, ANAIFS #### [address] [address] Chromatin Antibody <0.2 Normal <1.0 [facility] Comment on above: Result Comment: Test Methodology: Multiplex flow immunoassay. Anti-chromatin antibody is used as an aid in diagnosis of systemic lupus erythematosus. Clinical correlation is required. Test Methodology: Multiplex flow immunoassay. Performed By: [facility] [employer] [address] [place] [address] Residential Coordinator: Sukhdev Velazquez III, M.D. CLIA#: [id number] Performed By: #### G GT, HBSAG, HBCM, HCV1 #### [address] [address] #### CBC, ESR, LD, 148140, ANEU, CMP, GFR, URIC, ADIFF, ANAIFS #### [address] [address] ABI 1 Antibody <0.2 Normal <1.0 [facility] Comment on above: Result Comment: Perf ormed By: [place] [address] Residential Coordinator: Sukhdev Velazquez III, M.D. CLIA#: [id number] Performed By: #### G GT, HBSAG, HBCM, HCV1 #### [place] [address] #### CBC, ESR, LD, 679546, ANEU, CMP, GFR, URIC, ADIFF, ANAIFS #### [address] [address] ABI 1 Antibody Qual Negative Normal Negative [facility] Comment on above: Result Comment: Anti -ABI-1 antibody is used as an aid in diagnosis of polymyositis and dermatomyositis especially with pulmonary involvement. A negative result cannot rule out polymyositis or dermatomyositis. Clinical correlation is required. Test Methodology: Multiplex flow immunoassay. Performed By: [place] [address] Residential Coordinator: Sukhdev Velazquez III, M.D. CLIA#: [id number] Performed By: #### G GT, HBSAG, HBCM, HCV1 #### [place] [address] #### CBC, ESR, LD, 672363, ANEU, CMP, GFR, URIC, ADIFF, ANAIFS #### [address] [address] Ribosomal ELECTRIC UTILITY LINEWORKER <0.2 Normal <1.0 [facility] Comment on above: Result Comment: Perf ormed By: [place] [address] Residential Coordinator: Sukhdev Velazquez III, M.D. CLIA#: [id number] Performed By: #### G GT, HBSAG, HBCM, HCV1 #### [place] [address] #### CBC, ESR, LD, 320315, ANEU, CMP, GFR, URIC, ADIFF, ANAIFS #### [address] [address] Ribosomal ELECTRIC UTILITY LINEWORKER Qualitative Negative Normal Negative [facility] Comment on above: Result Comment: Anti -Ribosomal RNA (Ribosomal P) antibody is used as an aid in diagnosis of systemic autoimmune diseases especially systemic lupus erythematosus and mixed connective tissue disease. Cross-reactivity with Anti-moulton antibody is not uncommon. Clinical correlation is required. Test Methodology: Multiplex flow immunoassay. Performed By: [facility] [employer] [address] [place] [address] Residential Coordinator: Sukhdev Velazquez III, M.D. CLIA#: [id number] Performed By: #### G GT, HBSAG, HBCM, HCV1 #### [place] [address] #### CBC, ESR, LD, 299524, ANEU, CMP, GFR, URIC, ADIFF, ANAIFS #### [address] [address] ELECTRIC UTILITY LINEWORKER Antibody <0.2 Normal <1.0 [facility] Comment on above: Result Comment: Anti -ELECTRIC UTILITY LINEWORKER antibody is used as an aid in diagnosis of systemic autoimmune diseases especially systemic lupus erythematosus and mixed connective tissue disease. Cross-reactivity with Anti-moulton antibody is not uncommon. Clinical correlation is required. Test Methodology: Multiplex flow immunoassay. Performed By: [facility] [employer] [address] [place] [address] Residential Coordinator: Sukhdev Velazquez III, M.D. CLIA#: [id number] Performed By: #### G GT, HBSAG, HBCM, HCV1 #### [place] [address] #### CBC, ESR, LD, 006742, ANEU, CMP, GFR, URIC, ADIFF, ANAIFS #### [address] [address] ELECTRIC UTILITY LINEWORKER Antibody Qualitative Negative Normal Negative [facility] Comment on above: Result Comment: Perf ormed By: [place] [address] Residential Coordinator: Sukhdev Velazquez III, M.D. CLIA#: [id number] Performed By: #### G GT, HBSAG, HBCM, HCV1 #### [place] [address] #### CBC, ESR, LD, 533570, ANEU, CMP, GFR, URIC, ADIFF, ANAIFS #### [place] [address] Scleroderma Ab, IgG Qualitative Negative Normal Negative [facility] Comment on above: Result Comment: Perf ormed By: [place] [address] Residential Coordinator: Sukhdev Velazquez III, M.D. CLIA#: [id number] Performed By: #### G GT, HBSAG, HBCM, HCV1 #### [place] [address] #### CBC, ESR, LD, 280286, ANEU, CMP, GFR, URIC, ADIFF, ANAIFS #### [place] [address] Scleroderma IgG Ab <0.2 Normal <1.0 [facility] Comment on above: Result Comment: Scl- 70/Scleroderma antibody test is used as an aid in diagnosis of systemic sclerosis especially the diffuse cutaneous form. A negative result cannot rule out systemic sclerosis. The final interpretation should consider clinical picture and other test results such as anti-centromere antibody. Test Methodology: Multiplex flow immunoassay. Performed By: [place] [address] Residential Coordinator: Sukhdev Velazquez III, M.D. CLIA#: [id number] Performed By: #### G GT, HBSAG, HBCM, HCV1 #### [place] [address] #### CBC, ESR, LD, 492965, ANEU, CMP, GFR, URIC, ADIFF, ANAIFS #### [place] [address] Sm Antibody <0.2 Normal <1.0 [facility] Comment on above: Result Comment: Perf ormed By: [place] [address] Residential Coordinator: Sukhdev Velazquez III, M.D. CLIA#: [id number] Performed By: #### G GT, HBSAG, HBCM, HCV1 #### [place] [address] #### CBC, ESR, LD, 931824, ANEU, CMP, GFR, URIC, ADIFF, ANAIFS #### [place] [address] Sm Antibody Qual Negative Normal Negative [facility] Comment on above: Result Comment: Anti -Sm ([place]) antibody is used as an aid in diagnosis of systemic lupus erythematosus and its presence is associated with renal disease. A negative result cannot rule out systemic lupus erythematosus. Clinical correlation is required. Test Methodology: Multiplex flow immunoassay. Performed By: [place] [address] Residential Coordinator: Sukhdev Velazquez III, M.D. CLIA#: [id number] Performed By: #### G GT, HBSAG, HBCM, HCV1 #### [place] [address] #### CBC, ESR, LD, 623430, ANEU, CMP, GFR, URIC, ADIFF, ANAIFS #### [place] [address] SS-A Antibody <0.2 Normal <1.0 [facility] Comment on above: Result Comment: Test Methodology: Multiplex flow immunoassay. Anti-SSA (anti-Ro) antibody is used as an aid in diagnosis of a variety of systemic autoimmune diseases, Sjogren's syndrome among others. Clinical correlation is required. Test Methodology: Multiplex flow immunoassay. Performed By: [place] [address] Residential Coordinator: Sukhdev Velazquez III, M.D. CLIA#: [id number] Performed By: #### G GT, HBSAG, HBCM, HCV1 #### [place] [address] #### CBC, ESR, LD, 246908, ANEU, CMP, GFR, URIC, ADIFF, ANAIFS #### [address] [address] SS-B Antibody <0.2 Normal <1.0 [facility] Comment on above: Result Comment: Anti -SSB (anti-La) antibody is used as an aid in diagnosis of a variety of systemic autoimmune diseases, especially for Sjogren's syndrome and systemic lupus erythematosus. Clinical correlation is required. Test Methodology: Multiplex flow immunoassay. Performed By: [place] [address] Residential Coordinator: Sukhdev Velazquez III, M.D. CLIA#: [id number] Performed By: #### G GT, HBSAG, HBCM, HCV1 #### [place] [address] #### CBC, ESR, LD, 496212, ANEU, CMP, GFR, URIC, ADIFF, ANAIFS #### [address] [address] SSA Antibody Qualitative Negative Normal Negative [facility] Comment on above: Result Comment: Perf ormed By: [place] [address] Residential Coordinator: Sukhdev Velazquez III, M.D. CLIA#: [id number] Performed By: #### G GT, HBSAG, HBCM, HCV1 #### [place] [address] #### CBC, ESR, LD, 748644, ANEU, CMP, GFR, URIC, ADIFF, ANAIFS #### [address] [address] SSB Antibody Qualitative Negative Normal Negative [facility] Comment on above: Result Comment: Perf ormed By: [place] [address] Residential Coordinator: Sukhdev Velazquez III, M.D. CLIA#: [id number] Performed By: #### G GT, HBSAG, HBCM, HCV1 #### [place] [address] #### CBC, ESR, LD, 017338, ANEU, CMP, GFR, URIC, ADIFF, ANAIFS #### [address] [address] .Auto Diffon 11-24-2024 Basophil, Absolute 0.1 10 3/mcL Normal 0.0-0.3 [facility] Comment on above: Performed By: #### G GT, HBSAG, HBCM, HCV1 #### [place] [address] #### CBC, ESR, LD, 970763, ANEU, CMP, GFR, URIC, ADIFF, ANAIFS #### [address] [address] Basophils/100 WBC (Bld) 1.1 % Normal 0.0-2.5 [facility] Comment on above: Performed By: #### G GT, HBSAG, HBCM, HCV1 #### [place] [address] #### CBC, ESR, LD, 016715, ANEU, CMP, GFR, URIC, ADIFF, ANAIFS #### [address] [address] Eosinophil, Absolute 0.0 10 3/mcL Normal 0.0-0.7 [facility] Comment on above: Performed By: #### G GT, HBSAG, HBCM, HCV1 #### [place] [address] #### CBC, ESR, LD, 079984, ANEU, CMP, GFR, URIC, ADIFF, ANAIFS #### [address] [address] Eosinophils/100 WBC (Bld) 0.6 % Normal 0.0-6.0 [facility] Comment on above: Performed By: #### G GT, HBSAG, HBCM, HCV1 #### [place] [address] #### CBC, ESR, LD, 028419, ANEU, CMP, GFR, URIC, ADIFF, ANAIFS #### [address] [address] Lymphocyte, Absolute 0.9 10 3/mcL Normal 0.9-4.3 [facility] Comment on above: Performed By: #### G GT, HBSAG, HBCM, HCV1 #### [place] [address] #### CBC, ESR, LD, 698991, ANEU, CMP, GFR, URIC, ADIFF, ANAIFS #### [address] [address] Lymphocytes/100 WBC (Bld) 17.5 % Low 20.0-40.0 [facility] Comment on above: Performed By: #### G GT, HBSAG, HBCM, HCV1 #### [place] [address] #### CBC, ESR, LD, 031981, ANEU, CMP, GFR, URIC, ADIFF, ANAIFS #### [address] [address] Monocyte, Absolute 0.6 10 3/mcL Normal 0.1-1.4 [facility] Comment on above: Performed By: #### G GT, HBSAG, HBCM, HCV1 #### [place] [address] #### CBC, ESR, LD, 186148, ANEU, CMP, GFR, URIC, ADIFF, ANAIFS #### [address] [address] Monocytes/100 WBC (Bld) 11.9 % Normal 2.0-13.0 [facility] Comment on above: Performed By: #### G GT, HBSAG, HBCM, HCV1 #### [place] [address] #### CBC, ESR, LD, 175803, ANEU, CMP, GFR, URIC, ADIFF, ANAIFS #### [address] [address] Neutrophils/100 WBC (Bld) 68.9 % Normal 50.0-75.0 [facility] Comment on above: Performed By: #### G GT, HBSAG, HBCM, HCV1 #### [address] [address] #### CBC, ESR, LD, 313135, ANEU, CMP, GFR, URIC, ADIFF, ANAIFS #### [address] [address] .GFRon 11-24-2024 Estimated Glomerular Filtration Rate 36 ml/min/1.73sqm Normal [facility] Comment on above: Result Comment: Stages [...] #### G GT, HBSAG, HBCM, HCV1 #### [address] [address] #### CBC, ESR, LD, 755072, ANEU, CMP, GFR, URIC, ADIFF, ANAIFS #### [address] [address] .NEUABSon 11-24-2024 Neutrophil, Absolute 3.5 10 3/mcL Normal 2.3-8.1 [facility] Comment on above: Performed By: #### G GT, HBSAG, HBCM, HCV1 #### [address] [address] #### CBC, ESR, LD, 082428, ANEU, CMP, GFR, URIC, ADIFF, ANAIFS #### [address] [address] AMYon 11-24-2024 Amylase [Catalytic activity/Vol] 57 U/L Normal 25-115 [facility] Comment on above: Performed By: #### G GT, HBSAG, HBCM, HCV1 #### [address] [address] #### CBC, ESR, LD, 013907, ANEU, CMP, GFR, URIC, ADIFF, ANAIFS #### [address] [address] [facility] 11-24-2024 Erythrocyte distribution width (RBC) [Ratio] 16.7 % High 11.5-15.5 [facility] Comment on above: Performed By: #### G GT, HBSAG, HBCM, HCV1 #### [address] [address] #### CBC, ESR, LD, 771107, ANEU, CMP, GFR, URIC, ADIFF, ANAIFS #### [address] [address] Hematocrit (Bld) [Volume fraction] 30.3 % Low 34.0-46.0 [facility] Comment on above: Performed By: #### G GT, HBSAG, HBCM, HCV1 #### [address] [address] #### CBC, ESR, LD, 121086, ANEU, CMP, GFR, URIC, ADIFF, ANAIFS #### [address] [address] Hgb 10.1 G/dL Low 12.0-16.0 [facility] Comment on above: Performed By: #### G GT, HBSAG, HBCM, HCV1 #### [address] [address] #### CBC, ESR, LD, 975570, ANEU, CMP, GFR, URIC, ADIFF, ANAIFS #### [address] [address] MCH (RBC) [Entitic mass] 30.4 pg Normal 27.0-33.0 [facility] Comment on above: Performed By: #### G GT, HBSAG, HBCM, HCV1 #### [address] [address] #### CBC, ESR, LD, 578767, ANEU, CMP, GFR, URIC, ADIFF, ANAIFS #### [address] [address] MCHC 33.5 G/dL Normal 32.0-36.0 [facility] Comment on above: Performed By: #### G GT, HBSAG, HBCM, HCV1 #### [place] [address] #### CBC, ESR, LD, 371202, ANEU, CMP, GFR, URIC, ADIFF, ANAIFS #### [address] [address] MCV (RBC) [Entitic vol] 90.7 fL Normal 80.0-99.0 [facility] Comment on above: Performed By: #### G GT, HBSAG, HBCM, HCV1 #### [place] [address] #### CBC, ESR, LD, 711572, ANEU, CMP, GFR, URIC, ADIFF, ANAIFS #### [address] [address] Platelet 112 10 3/mcL Low 150-450 [facility] Comment on above: Performed By: #### G GT, HBSAG, HBCM, HCV1 #### [place] [address] #### CBC, ESR, LD, 293775, ANEU, CMP, GFR, URIC, ADIFF, ANAIFS #### [address] [address] Platelet mean volume (Bld) [Entitic vol] 8.5 fL Normal 6.6-10.5 [facility] Comment on above: Performed By: #### G GT, HBSAG, HBCM, HCV1 #### [place] [address] #### CBC, ESR, LD, 531823, ANEU, CMP, GFR, URIC, ADIFF, ANAIFS #### [address] [address] RBC 3.34 10 6/mcL Low 4.10-5.30 [facility] Comment on above: Performed By: #### G GT, HBSAG, HBCM, HCV1 #### [place] [address] #### CBC, ESR, LD, 545088, ANEU, CMP, GFR, URIC, ADIFF, ANAIFS #### [address] [address] WBC 5.1 10 3/mcL Normal 4.5-10.8 [facility] Comment on above: Performed By: #### G GT, HBSAG, HBCM, HCV1 #### [place] [address] #### CBC, ESR, LD, 717645, ANEU, CMP, GFR, URIC, ADIFF, ANAIFS #### [address] [address] CMPon 11-24-2024 Albumin Level 3.1 G/dL Low 3.4-4.8 [facility] Comment on above: Performed By: #### G GT, HBSAG, HBCM, HCV1 #### [place] [address] #### CBC, ESR, LD, 338168, ANEU, CMP, GFR, URIC, ADIFF, ANAIFS #### [address] [address] Albumin/Globulin [Mass ratio] 0.8 {ratio} Low 1.1-2.5 [facility] Comment on above: Performed By: #### G GT, HBSAG, HBCM, HCV1 #### [place] [address] #### CBC, ESR, LD, 880160, ANEU, CMP, GFR, URIC, ADIFF, ANAIFS #### [address] [address] ALP [Catalytic activity/Vol] 165 U/L High 40-135 [facility] Comment on above: Performed By: #### G GT, HBSAG, HBCM, HCV1 #### [place] [address] #### CBC, ESR, LD, 142919, ANEU, CMP, GFR, URIC, ADIFF, ANAIFS #### [address] [address] ALT [Catalytic activity/Vol] 127 U/L High 14-59 [facility] Comment on above: Performed By: #### G GT, HBSAG, HBCM, HCV1 #### [place] [address] #### CBC, ESR, LD, 631790, ANEU, CMP, GFR, URIC, ADIFF, ANAIFS #### [address] [address] AST [Catalytic activity/Vol] 145 U/L High 10-40 [facility] Comment on above: Performed By: #### G GT, HBSAG, HBCM, HCV1 #### [place] [address] #### CBC, ESR, LD, 918605, ANEU, CMP, GFR, URIC, ADIFF, ANAIFS #### [address] [address] Bili Total 0.7 mg/dL Normal 0.2-1.0 [facility] Comment on above: Result Comment: Use of this assay is not recommended for patients undergoing treatment with eltrombopag due to the potential for falsely elevated results. Performed By: #### G GT, HBSAG, HBCM, HCV1 #### [place] [address] #### CBC, ESR, LD, 596095, ANEU, CMP, GFR, URIC, ADIFF, ANAIFS #### [address] [address] BUN/Creatinine Ratio 27 ratio Normal 7-27 [facility] Comment on above: Performed By: #### G GT, HBSAG, HBCM, HCV1 #### [address] [address] #### CBC, ESR, LD, 369069, ANEU, CMP, GFR, URIC, ADIFF, ANAIFS #### [address] [address] Calcium [Mass/Vol] 10.8 mg/dL High 8.4-10.2 [facility] Comment on above: Performed By: #### G GT, HBSAG, HBCM, HCV1 #### [place] [address] #### CBC, ESR, LD, 572349, ANEU, CMP, GFR, URIC, ADIFF, ANAIFS #### [address] [address] Chloride [Moles/Vol] 104 mmol/L Normal 98-107 [facility] Comment on above: Performed By: #### G GT, HBSAG, HBCM, HCV1 #### [place] [address] #### CBC, ESR, LD, 007396, ANEU, CMP, GFR, URIC, ADIFF, ANAIFS #### [address] [address] CO2 [Moles/Vol] 32 mmol/L High 23-31 [facility] Comment on above: Performed By: #### G GT, HBSAG, HBCM, HCV1 #### [place] [address] #### CBC, ESR, LD, 339948, ANEU, CMP, GFR, URIC, ADIFF, ANAIFS #### [address] [address] Creatinine [Mass/Vol] 1.58 mg/dL High 0.51-0.95 [facility] Comment on above: Performed By: #### G GT, HBSAG, HBCM, HCV1 #### [place] [address] #### CBC, ESR, LD, 571977, ANEU, CMP, GFR, URIC, ADIFF, ANAIFS #### [address] [address] Electrolyte Balance 8.0 mEq/L Normal 4.0-15.0 [facility] Comment on above: Performed By: #### G GT, HBSAG, HBCM, HCV1 #### [address] [address] #### CBC, ESR, LD, 892688, ANEU, CMP, GFR, URIC, ADIFF, ANAIFS #### [address] [address] Globulin 3.9 G/dL Normal 2.7-4.4 [facility] Comment on above: Performed By: #### G GT, HBSAG, HBCM, HCV1 #### [place] [address] #### CBC, ESR, LD, 175688, ANEU, CMP, GFR, URIC, ADIFF, ANAIFS #### [address] [address] Glucose [Mass/Vol] 98 mg/dL Normal 80-115 [facility] Comment on above: Performed By: #### G GT, HBSAG, HBCM, HCV1 #### [place] [address] #### CBC, ESR, LD, 063499, ANEU, CMP, GFR, URIC, ADIFF, ANAIFS #### [address] [address] Potassium [Moles/Vol] 3.9 mmol/L Normal 3.5-5.1 [facility] Comment on above: Performed By: #### G GT, HBSAG, HBCM, HCV1 #### [place] [address] #### CBC, ESR, LD, 835902, ANEU, CMP, GFR, URIC, ADIFF, ANAIFS #### [address] [address] Sodium [Moles/Vol] 144 mmol/L Normal 136-145 [facility] Comment on above: Performed By: #### G GT, HBSAG, HBCM, HCV1 #### [address] [address] #### CBC, ESR, LD, 015220, ANEU, CMP, GFR, URIC, ADIFF, ANAIFS #### [address] [address] Total Protein 7.0 G/dL Normal 6.4-8.2 [facility] Comment on above: Performed By: #### G GT, HBSAG, HBCM, HCV1 #### [place] [address] #### CBC, ESR, LD, 774111, ANEU, CMP, GFR, URIC, ADIFF, ANAIFS #### [address] [address] Urea nitrogen [Mass/Vol] 43 mg/dL High 7-18 [facility] Comment on above: Performed By: #### G GT, HBSAG, HBCM, HCV1 #### [place] [address] #### CBC, ESR, LD, 968396, ANEU, CMP, GFR, URIC, ADIFF, ANAIFS #### [address] [address] ESRon 11-24-2024 Erythrocyte Sed Rate 20 mm/hr Normal 0-30 [facility] Comment on above: Performed By: #### G GT, HBSAG, HBCM, HCV1 #### [place] [address] #### CBC, ESR, LD, 427427, ANEU, CMP, GFR, URIC, ADIFF, ANAIFS #### [address] [address] GGTon 11-24-2024 Gamma GT 66 U/L High 5-55 [facility] Comment on above: Performed By: #### G GT, HBSAG, HBCM, HCV1 #### [place] [address] #### CBC, ESR, LD, 681417, ANEU, CMP, GFR, URIC, ADIFF, ANAIFS #### [address] [address] HBCMon 11-24-2024 Hep B Core IgM Ab Non-Reactive Normal Non-Reactive [facility] Comment on above: Performed By: #### G GT, HBSAG, HBCM, HCV1 #### [place] [address] #### CBC, ESR, LD, 779007, ANEU, CMP, GFR, URIC, ADIFF, ANAIFS #### [address] [address] Hep B Core IgM Ab Int See Interp Normal [facility] Comment on above: Result Comment: Clinical Interpretation: Samples with a value < 0.80 Index are considered nonreactive (negative) for IgM antibodies to hepatitis B core antigen. Performed By: #### G GT, HBSAG, HBCM, HCV1 #### [place] [address] #### CBC, ESR, LD, 821604, ANEU, CMP, GFR, URIC, ADIFF, ANAIFS #### [address] [address] HBSAGon 11-24-2024 Hep B Surf Ag Non-Reactive Normal Non-Reactive [facility] Comment on above: Performed By: #### G GT, HBSAG, HBCM, HCV1 #### [place] [address] #### CBC, ESR, LD, 763812, ANEU, CMP, GFR, URIC, ADIFF, ANAIFS #### [address] [address] HCVon 11-24-2024 Hep C Ab Non-Reactive Normal Non-Reactive [facility] Comment on above: Performed By: #### G GT, HBSAG, HBCM, HCV1 #### [place] [address] #### CBC, ESR, LD, 256872, ANEU, CMP, GFR, URIC, ADIFF, ANAIFS #### [address] [address] Hep C Ab Int See Interp Normal [facility] Comment on above: Result Comment: [...] #### G GT, HBSAG, HBCM, HCV1 #### [facility] [address] [place] [address] #### CBC, ESR, LD, 239218, ANEU, CMP, GFR, URIC, ADIFF, ANAIFS #### [place] [address] [place], [place] [address] LABORATORYOrdered By: Kellie Alejandra on 11-24-2024 Albumin DL <= 20 mg/L (U) [Mass/Vol] 119.7 mg/L Invalid Interpretation Code AO ADM SS Albumin/Creatinine DL <= 20 mg/L (U) [Mass ratio] 169 mg/G High 0 - 30 mg/G AO Chemistry S Creatinine (U) [Mass/Vol] 71.0 mg/dL Invalid Interpretation Code AO ADM SS LABORATORYOrdered By: Mr [employer] on 11-24-2024 25-hydroxyvitamin D3 [Mass/Vol] 86.5 [...] 11-24-2024 LDH 362 U/L High 81-234 [facility] Comment on above: Performed By: #### G GT, HBSAG, HBCM, HCV1 #### [address] [address] #### CBC, ESR, LD, 950048, ANEU, CMP, GFR, URIC, ADIFF, ANAIFS #### [address] [address] LIPon 11-24-2024 Lipase Level 40 U/L Normal 16-77 [facility] Comment on above: Performed By: #### G GT, HBSAG, HBCM, HCV1 #### [place] [address] #### CBC, ESR, LD, 942198, ANEU, CMP, GFR, URIC, ADIFF, ANAIFS #### [address] [address] MALBRon 11-24-2024 U Creatinine 71.0 mg/dL Normal [facility] Comment on above: Performed By: #### G GT, HBSAG, HBCM, HCV1 #### [place] [address] #### CBC, ESR, LD, 798024, ANEU, CMP, GFR, URIC, ADIFF, ANAIFS #### [address] [address] U Microalb 119.7 mg/L Normal [facility] Comment on above: Performed By: #### G GT, HBSAG, HBCM, HCV1 #### [place] [address] #### CBC, ESR, LD, 095122, ANEU, CMP, GFR, URIC, ADIFF, ANAIFS #### [address] [address] U Ratio Alb/Cre 169 mg/G High 0-30 [facility] Comment on above: Performed By: #### G GT, HBSAG, HBCM, HCV1 #### [place] [address] #### CBC, ESR, LD, 116195, ANEU, CMP, GFR, URIC, ADIFF, ANAIFS #### [address] [address] TSHon 11-24-2024 TSH Qn 1.71 m[IU]/L Normal 0.36-3.74 [facility] Comment on above: Performed By: #### G GT, HBSAG, HBCM, HCV1 #### [address] [address] #### CBC, ESR, LD, 924785, ANEU, CMP, GFR, URIC, ADIFF, ANAIFS #### [address] [address] URICon 11-24-2024 Uric Acid Lvl 10.8 mg/dL High 2.6-6.2 [facility] Comment on above: Performed By: #### G GT, HBSAG, HBCM, HCV1 #### [address] [address] #### CBC, ESR, LD, 453796, ANEU, CMP, GFR, URIC, ADIFF, ANAIFS #### [address] [address] VIDHon 11-24-2024 Vit. D 25-Hydroxy 86.5 ng/mL Normal [facility] Comment on above: Result Comment: Inte rpretive Values Based on Total 25(OH) Vitamin D: Deficient <20 ng/mL Insufficient 20 - <30 ng/mL Sufficient 30-100 ng/mL Performed By: #### G GT, HBSAG, HBCM, HCV1 #### [place] [id number] #### CBC, ESR, LD, 274914, ANEU, CMP, GFR, URIC, ADIFF, ANAIFS #### [address] [address] Celiac Disease Profileon ENDOMYSIAL IGA Negative Normal Negative [facility] Comment on above: Performed By: #### L 300.3900, L300.4310, L101.9900, L3410.2400, L100.0500, L501.6710, L500.4050 #### [facility] [address] [place], [place], [id number] IMMUNOGLOB A QN 193 mg/dL Normal 87-352 [facility] Comment on above: Result Comment: Perf ormed at: [facility] [id number] Residential Coordinator: Jeronimo Means PhD, Phone: [phone] Performed By: #### L 300.3900, L300.4310, L101.9900, L3410.2400, L100.0500, L501.6710, L500.4050 #### [facility] [address] [place], [address] tTG IGA 3 U/mL Normal 0-3 [facility] Comment on above: Result Comment: Nega tive 0 - 3 Weak Positive 4 - 10 Positive >10 Tissue Transglutaminase (tTG) has been identified as the endomysial antigen. Studies have demonstr- ated that endomysial IgA antibodies have over 99% specificity for gluten sensitive enteropathy. Performed By: #### L 300.3900, L300.4310, L101.9900, L3410.2400, L100.0500, L501.6710, L500.4050 #### [facility] [address] [place], [address] Activated partial thrombopla stin time (aPTT) in platelet poor plasma by coagulation aOrdered By: Jeronimo Perez on 11-17-2024 aPTT Coag (PPP) [Time] 33.8 s 24.1-36.2 [facility] Anion gap in Serum or Plasma Ordered By: Jeronimo Perez on 11-17-2024 Anion gap [Moles/Vol] 16 mmol/L High 5-15 [facility] Automated blood erythrocyte countOrdered By: Jeronimo Perez on 11-17-2024 RBC (Bld) [#/Vol] 3.39 10*6/uL Low 4.2-5.4 [facility] Comment on above: Performed By: #### L 300.3900, L300.4310, L101.9900, L3410.2400, L100.0500, L501.6710, L500.4050 #### [facility] [address] [place], [address] Automated blood hematocrit ( percentage)Ordered By: Jeronimo Perez on 11-17-2024 Hematocrit (Bld) [Volume fraction] 32.0 % Low 37-47 [facility] Comment on above: Performed By: #### L 300.3900, L300.4310, L101.9900, L3410.2400, L100.0500, L501.6710, L500.4050 #### [facility] [address] [place], [address] BUN/creatinine ratioOrdered By: Jeronimo Perez on 11-17-2024 Urea nitrogen/Creatinine [Mass ratio] 18.6 mg/mg 10-20 [facility] Bilirubin, totalOrdered By: Jeronimo Perez on 11-17-2024 Bilirubin [Mass/Vol] 0.59 mg/dL 0.00-1.[address] [facility] CBC-Complete Blood Cnt No Di ffon 11-17-2024 RDW SD 57.1 fl High 35.1-43.9 [facility] Comment on above: Performed By: #### L 300.3900, L300.4310, L101.9900, L3410.2400, L100.0500, L501.6710, L500.4050 #### [facility] [address] [place], [address] CRPon 11-17-2024 C-REACTIVE PROT 128.00 mg/L High 0.0-3.0 [facility] Comment on above: Performed By: #### L 300.3900, L300.4310, L101.9900, L3410.2400, L100.0500, L501.6710, L500.4050 #### [facility] [address] [place], [address] Carbon dioxide, total [Moles /volume] in Central venous bloodOrdered By: Jeronimo Perez on 11-17-2024 CO2 [Moles/Vol] 26.0 mmol/L 21.0-32.0 [facility] Chloride assayOrdered By: Belén Perez on 11-17-2024 Chloride [Moles/Vol] 100 mmol/L 98-[address] [facility] Comprehensive Metabolic Prof ilon 11-17-2024 Chloride [Moles/Vol] 100 mmol/L Normal 98-[address] [facility] Comment on above: Performed By: #### L 300.3900, L300.4310, L101.9900, L3410.2400, L100.0500, L501.6710, L500.4050 #### [facility] [address] [place], [address] CO2 [Moles/Vol] 26.0 mmol/L Normal 21.0-32.0 [facility] Comment on above: Performed By: #### L 300.3900, L300.4310, L101.9900, L3410.2400, L100.0500, L501.6710, L500.4050 #### [facility] [address] [place], [address] GAP 16 High 5-15 [facility] Comment on above: Performed By: #### L 300.3900, L300.4310, L101.9900, L3410.2400, L100.0500, L501.6710, L500.4050 #### [facility] [address] [place], [address] Potassium [Moles/Vol] 3.5 mmol/L Normal 3.3-5.1 [facility] Comment on above: Performed By: #### L 300.3900, L300.4310, L101.9900, L3410.2400, L100.0500, L501.6710, L500.4050 #### [facility] [address] [place], [address] Sodium [Moles/Vol] 142 mmol/L Normal 133-145 [facility] Comment on above: Performed By: #### L 300.3900, L300.4310, L101.9900, L3410.2400, L100.0500, L501.6710, L500.4050 #### [facility] [address] [place], [address] Albumin [Mass/Vol] 3.7 g/dL Normal 3.4-4.8 [facility] Comment on above: Performed By: #### L 300.3900, L300.4310, L101.9900, L3410.2400, L100.0500, L501.6710, L500.4050 #### [facility] [address] [place], [address] Albumin/Globulin [Mass ratio] 1.2 {ratio} Normal 0.9-2.4 [facility] Comment on above: Performed By: #### L 300.3900, L300.4310, L101.9900, L3410.2400, L100.0500, L501.6710, L500.4050 #### [facility] [address] [place], [address] ALK PHOS 131 U/L High 35-104 [facility] Comment on above: Performed By: #### L 300.3900, L300.4310, L101.9900, L3410.2400, L100.0500, L501.6710, L500.4050 #### [facility] [address] [place], [address] ALT [Catalytic activity/Vol] 97 U/L High <=34 [facility] Comment on above: Performed By: #### L 300.3900, L300.4310, L101.9900, L3410.2400, L100.0500, L501.6710, L500.4050 #### [facility] [address] [place], [address] AST [Catalytic activity/Vol] 110 U/L High <=31 [facility] Comment on above: Performed By: #### L 300.3900, L300.4310, L101.9900, L3410.2400, L100.0500, L501.6710, L500.4050 #### [facility] [address] [place], [address] Bilirubin [Mass/Vol] 0.59 mg/dL Normal 0.00-1.[address] [facility] Comment on above: Performed By: #### L 300.3900, L300.4310, L101.9900, L3410.2400, L100.0500, L501.6710, L500.4050 #### [facility] [address] [place], [address] BUN/CRE 18.6 RATIO Normal 10-20 [facility] Comment on above: Performed By: #### L 300.3900, L300.4310, L101.9900, L3410.2400, L100.0500, L501.6710, L500.4050 #### [facility] [address] [place], [address] Calcium [Mass/Vol] 11.9 mg/dL High 7.6-11.0 [facility] Comment on above: Performed By: #### L 300.3900, L300.4310, L101.9900, L3410.2400, L100.0500, L501.6710, L500.4050 #### [facility] [address] [place], [address] Creatinine [Mass/Vol] 2.07 mg/dL High 0.70-1.20 [facility] Comment on above: Performed By: #### L 300.3900, L300.4310, L101.9900, L3410.2400, L100.0500, L501.6710, L500.4050 #### [facility] [address] [place], [address] GFR/1.73 sq M.predicted among non-blacks MDRD (S/P/Bld) [Vol rate/Area] 26 mL/min/{1.73_m2} Low >60 [facility] Comment on above: Result Comment: mL/m in/1.73m2 CKD-EPI Creatinine Equation (2020) Performed By: #### L 300.3900, L300.4310, L101.9900, L3410.2400, L100.0500, L501.6710, L500.4050 #### [facility] [address] [place], [address] Globulin (S) [Mass/Vol] 3.2 g/dL Normal 2.2-4.2 [facility] Comment on above: Performed By: #### L 300.3900, L300.4310, L101.9900, L3410.2400, L100.0500, L501.6710, L500.4050 #### [facility] [address] [place], [address] Glucose [Mass/Vol] 106 mg/dL High 70-99 [facility] Comment on above: Performed By: #### L 300.3900, L300.4310, L101.9900, L3410.2400, L100.0500, L501.6710, L500.4050 #### [facility] [address] [place], [address] T PROT 6.9 g/dL Normal 5.9-8.4 [facility] Comment on above: Performed By: #### L 300.3900, L300.4310, L101.9900, L3410.2400, L100.0500, L501.6710, L500.4050 #### [facility] [address] [place], [place], [id number] Urea nitrogen [Mass/Vol] 39 mg/dL High 4-19 [facility] Comment on above: Performed By: #### L 300.3900, L300.4310, L101.9900, L3410.2400, L100.0500, L501.6710, L500.4050 #### [facility] [address] [place], [address] Erythrocyte Sed Rateon 11-17 SED RATE 18 mm/hr Normal 0-30 [facility] Comment on above: Performed By: #### L 300.3900, L300.4310, L101.9900, L3410.2400, L100.0500, L501.6710, L500.4050 #### [facility] [address] [place], [address] Erythrocyte distribution wid th ratioOrdered By: Jeronimo Perez on 11-17-2024 Erythrocyte distribution width (RBC) [Ratio] 16.5 % High 11.6-14.6 [facility] Comment on above: Performed By: #### L 300.3900, L300.4310, L101.9900, L3410.2400, L100.0500, L501.6710, L500.4050 #### [facility] [address] [place], [address] Erythrocyte distribution wid th standard deviationOrdered By: Jeronimo Perez on 11-17-2024 Erythrocyte distribution width (RBC) [Ratio] 57.1 fl High 35.1-43.9 [facility] Erythrocyte sedimentation ra teOrdered By: Jeronimo Perez on 11-17-2024 ESR (Bld) [Velocity] 18 mm/h 0-[address] [facility] Glomerular filtration rate ( GFR) estimation/1.73 sq m using serum, plasma, or whole bOrdered By: Jeronimo Perez on 11-17-2024 GFR/1.73 sq M.predicted among non-blacks MDRD (S/P/Bld) [Vol rate/Area] 26 mL/min/{1.73_m2} Low >60 [facility] Comment on above: mL/min/1.73m2 CKD-EP I Creatinine Equation (2020) Hemoglobin measurementOrdere d By: Jeronimo Perez on 11-17-2024 Hemoglobin (Bld) [Mass/Vol] 10.2 g/dL Low 12.0-15.0 [facility] Comment on above: Performed By: #### L 300.3900, L300.4310, L101.9900, L3410.2400, L100.0500, L501.6710, L500.4050 #### [facility] [address] [place], [address] International normalized rat io (INR) calculationOrdered By: Jeronimo Perez on 11-17-2024 INR Coag (Bld) [Relative time] 1.0 {INR} [facility] - Chemistry and C hemistry - challengeOrdered By: Jeronimo Perez on 11-17-2024 AST [Catalytic activity/Vol] 110 U/L High <32 [facility] MCV (mean corpuscular volume ) determinationOrdered By: Jeronimo Perez on 11-17-2024 MCV (RBC) [Entitic vol] 94.4 fL Normal 81-99 [facility] Comment on above: Performed By: #### L 300.3900, L300.4310, L101.9900, L3410.2400, L100.0500, L501.6710, L500.4050 #### [facility] [address] [place], [address] Mean corpuscular hemoglobin (MCH) determinationOrdered By: Jeronimo Perez on 11-17-2024 MCH (RBC) [Entitic mass] 30.1 pg Normal 27.0-32.0 [facility] Comment on above: Performed By: #### L 300.3900, L300.4310, L101.9900, L3410.2400, L100.0500, L501.6710, L500.4050 #### [facility] [address] [place], [address] Mean corpuscular hemoglobin concentration (MCHC) determinationOrdered By: Jeronimo Perez on 11-17-2024 MCHC (RBC) [Mass/Vol] 31.9 g/dL Low 32-36 [facility] Comment on above: Performed By: #### L 300.3900, L300.4310, L101.9900, L3410.2400, L100.0500, L501.6710, L500.4050 #### [facility] [address] [place], [address] Mean platelet volume determi nationOrdered By: Jeronimo Perez on 11-17-2024 Platelet mean volume (Bld) [Entitic vol] 12.6 fL High 6.2-12.0 [facility] Comment on above: Performed By: #### L 300.3900, L300.4310, L101.9900, L3410.2400, L100.0500, L501.6710, L500.4050 #### [facility] [address] [place], [address] Partial Thromboplast Timeon 11-17-2024 aPTT Coag (Bld) [Time] 33.8 s Normal 24.1-36.2 [facility] Comment on above: Performed By: #### L 300.3900, L300.4310, L101.9900, L3410.2400, L100.0500, L501.6710, L500.4050 #### [facility] [address] [place], [address] Platelet countOrdered By: Belén Perez on 11-17-2024 Platelets (Bld) [#/Vol] 108 10*3/uL Low 150-450 [facility] Comment on above: Performed By: #### L 300.3900, L300.4310, L101.9900, L3410.2400, L100.0500, L501.6710, L500.4050 #### [facility] [address] [place], [place], [address] Potassium measurement (mass/ volume)Ordered By: Jeronimo Perez on 11-17-2024 Potassium (Unsp spec) [Mass/Vol] 3.5 mmol/L 3.3-5.1 [facility] Prothrombin Time w/INRon INR Coag (PPP) [Relative time] 1.0 {INR} Normal [facility] Comment on above: Performed By: #### L 300.3900, L300.4310, L101.9900, L3410.2400, L100.0500, L501.6710, L500.4050 #### [facility] [address] [place], [place], [address] PT Coag (PPP) [Time] 13.2 s Normal 11.7-14.[address] [facility] Comment on above: Performed By: #### L 300.3900, L300.4310, L101.9900, L3410.2400, L100.0500, L501.6710, L500.4050 #### [facility] [address] [place], [place], [id number] Prothrombin timeOrdered By: Jeronimo Perez on 11-17-2024 PT Coag (PPP) [Time] 13.2 s 11.7-14.[address] [facility] Serum creatinine measurement (mass/volume)Ordered By: Jeronimo Perez on 11-17-2024 Creatinine [Mass/Vol] 2.07 mg/dL High 0.70-1.20 [facility] Serum globulin measurementOr dered By: Jeronimo Perez on 11-17-2024 Globulin (S) [Mass/Vol] 3.2 g/dL 2.2-4.2 [facility] Serum glucose measurement (m ass/volume)Ordered By: Jeronimo Perez on 11-17-2024 Glucose [Mass/Vol] 106 mg/dL High 70-99 [facility] Serum or plasma C reactive p rotein measurement (mass/volume)Ordered By: Jeronimo Perez on 11-17-2024 CRP [Mass/Vol] 128.00 mg/L High 0.0-3.0 [facility] Serum or plasma IgA measurem ent (mass/volume)Ordered By: Jeronimo Perez on 11-17-2024 IgA [Mass/Vol] 193 mg/dL 87-352 [facility] Comment on above: Performed at: [facility] [employer] [address] [id number] Director: Jeronimo Means PhD, Phone: [phone] Serum or plasma alanine baker otransferase (ALT) measurementOrdered By: Jeronimo Perez on 11-17-2024 ALT [Catalytic activity/Vol] 97 U/L High <35 [facility] Serum or plasma albumin matt urement (mass/volume)Ordered By: Jeronimo Perez on 11-17-2024 Albumin [Mass/Vol] 3.7 g/dL 3.4-4.8 [facility] Serum or plasma albumin/glob ulin mass ratioOrdered By: Jeronimo Perez on 11-17-2024 Albumin/Globulin [Mass ratio] 1.2 {ratio} 0.9-2.4 [facility] Serum or plasma alkaline adama sphatase measurementOrdered By: Jeronimo Perez on 11-17-2024 ALP [Catalytic activity/Vol] 131 U/L High 35-104 [facility] Serum or plasma calcium matt urement (mass/volume)Ordered By: Jeronimo Perez on 11-17-2024 Calcium [Mass/Vol] 11.9 mg/dL High 7.6-11.0 [facility] Serum or plasma urea nitroge n measurement (mass/volume)Ordered By: Jeronimo Perez on 11-17-2024 Urea nitrogen [Mass/Vol] 39 mg/dL High 4-19 [facility] Serum tissue transglutaminas e (tTG) IgA antibody assay (units/volume)Ordered By: Jeronimo Perez on 11-17-2024 tTG IgA Qn (S) 3 U/mL 0-3 [facility] Comment on above: Negative 0 - 3 Weak Positive 4 - 10 Positive >10 Tissue Transglutaminase (tTG) has been identified as the endomysial antigen. Studies have demonstr- ated that endomysial IgA antibodies have over 99% specificity for gluten sensitive enteropathy. Sodium levelOrdered By: Bess Perez on 11-17-2024 Sodium [Moles/Vol] 142 mmol/L 133-145 [facility] Total proteinOrdered By: Silver Perez on 11-17-2024 Protein [Mass/Vol] 6.9 g/dL 5.9-8.4 [facility] White blood cell (WBC) count Ordered By: Bessbrynn Nelida on 11-17-2024 WBC (Bld) [#/Vol] 6.7 10*3/uL Normal 4.4-11.0 [facility] Comment on above: Performed By: #### L 300.3900, L300.4310, L101.9900, L3410.2400, L100.0500, L501.6710, L500.4050 #### [facility] [address] [place], [address] CT ABDOMEN/PELVIS W/ CONTRAS Ton 08-27-2024 CT [...] a (more content not included)... Normal [facility] Bacteria Ur Culton 5 Bacteria identified [...] or straight catheterization for???urine???collect ion. Normal [facility] Comment on above: Performed By: #### 6 30-4 #### [facility] CLIA [id number] [address] [place] [address] [place] CNOVon 08-22-2024 CNOV Office Visit ([facility] ) KERRY CHAO ([id number]) 1955 F Date Time Provider Department 08/22/24 1:45 PM TO ALCARAZ [facility] During your visit today, we recorded the following information about you: Temperature Pulse Respiration Blood pressure 98.9 degrees 94/minute 16/minute 122/68 Weight 48.7 kg GabeTo mercerAPRN.REFERRAL AND INFORMATION AIDE 08/22/2024 2:21 PM Signed [facility] [...] R10.9 - Increase fiber in diet - [place] low residue diet - IBUPROFEN 400 MG TABLET - follow up with PCP if not improving, continue plan for CT scan this week To Alcaraz APRN.REFERRAL AND INFORMATION AIDE -I have reviewed and upda (more content not included)... Normal [facility] UA DIP, URINE (POC)on 2024 BILIRUBIN UA (POCT) Small Abnormal Negative [facility] CLARITY UA (POCT) Clear [facility] COLOR UA (POCT) Yellow [facility] GLUCOSE UA (POCT) Negative Negative mg/dL [facility] Hemoglobin Ql (U) Negative Negative [facility] Interpretation and review of laboratory results Abnormal [facility] KETONE UA (POCT) Trace Negative mg/dL [facility] LEUKOCYTES UA (POCT) Trace Abnormal Negative [facility] NITRITE UA (POCT) Negative Negative [facility] PH UA (POCT) 5.5 4.5 - 8.0 [facility] Protein Ql (U) Negative Negative mg/dL [facility] SPECIFIC GRAVITY UA (POCT) 1.025 1.005 - 1.030 [facility] UROBILINOGEN UA (POCT) 0.2 Meaghan l E.U./dL [facility] Location:[facility], [address] [place] [address], [place], [place], [id number] [place] [address] POINT OF CARE [facility] LABORATORYOrdered By: SYSTEM SYSTEM on 11-19-2023 [...] calculated value from Hemoglobin A1C and is in store representative of the average blood glucose level [...] Reason for Exam: fall with headstrike FINDINGS: Flight Nurse (topogram) images: Unremarkable BRAIN/VENTRICLES: No evidence of [...] 08/30/2023 3:13:29 PM Ordering Provider: HEAVEN Jay [facility] [place] Darian 09-18-2022 U Creatinine 148.2 mg/dL High 28.0-117.0 [facility] Comment on above: Performed By: #### M ALBR #### Lissy [address] [address] U Microalb 2631 mcg/dL Normal [facility] Comment on above: Performed By: #### M ALBR #### [facility] [address] [place], [place] [address] U Ratio Alb/Cre 18 mcg/mg Normal 0-30 [facility] Comment on above: Performed By: #### M ALBR #### [facility] [address] [place], [place] [address] LABORATORYOrdered By: Dina Brooks on 06-20-2021 Adenovirus [...] notified. Results have been reported to the [facility]. FLUBV RNA TAB+non-probe Ql (Nph) Not Detected [...] 15:11-0400 Body temperature 98.5 [degF] Ranjith Ling THERAPIST PHYS-C Work Phone: [facility] 12-24-2024 15:11-0400 Diastolic blood pressure 85 mm[Hg] Ranjith Ling THERAPIST PHYS-C Work Phone: [facility] 12-24-2024 15:11-0400 Heart rate 97 /min Ranjith Ling THERAPIST PHYS-C Work Phone: [facility] 12-24-2024 15:11-0400 Respiratory rate 16 /min Ranjith Mahmoodpkins THERAPIST PHYS-C Work Phone: [facility] 12-24-2024 15:11-0400 SaO2% (BldA) [Mass fraction] 95 % Ranjith Anuradha THERAPIST PHYS-C Work Phone: [facility] 12-24-2024 15:11-0400 Systolic blood pressure 162 mm[Hg] Ranjith Ling THERAPIST PHYS-C Work Phone: [facility] 12-24-2024 12:07-0400 Body height 167.64 cm Ranjith Anuradha THERAPIST PHYS-C Work Phone: [facility] 12-24-2024 12:07-0400 Body mass index (BMI) [Ratio] 18.1 kg/m2 Ranjith Anuradha THERAPIST PHYS-C Work Phone: [facility] 12-24-2024 12:07-0400 Body weight 50.8 kg Ranjith Ling THERAPIST PHYS-C Work Phone: [facility] 12-22-2024 14:33-0400 Body mass index (BMI) [Ratio] 18.1 kg/m2 Ranjith Mahmoodpkins THERAPIST PHYS-C Work Phone: [facility] 12-22-2024 14:33-0400 Body temperature 98.6 [degF] Ranjith Ling THERAPIST PHYS-C Work Phone: [facility] 12-22-2024 14:33-0400 Body weight 50.91 kg Ranjith Mahmoodpkins THERAPIST PHYS-C Work Phone: [facility] 12-22-2024 14:33-0400 Diastolic blood pressure 65 mm[Hg] Ranjith Mahmoodpkins THERAPIST PHYS-C Work Phone: [facility] 12-22-2024 14:33-0400 Heart rate 103 /min Ranjith Mahmoodpkins THERAPIST PHYS-C Work Phone: [facility] 12-22-2024 14:33-0400 Respiratory rate 18 /min Ranjith Mahmoodpkins THERAPIST PHYS-C Work Phone: [facility] 12-22-2024 14:33-0400 SaO2% (BldA) [Mass fraction] 100 % Ranjith Mahmoodpkins THERAPIST PHYS-C Work Phone: [facility] 12-22-2024 14:33-0400 Systolic blood pressure 104 mm[Hg] Ranjith Mahmoodpkins THERAPIST PHYS-C Work Phone: [facility] 12-07-2024 15:00-0400 Diastolic blood pressure 72 mm[Hg] Ranjith Anuradha THERAPIST PHYS-C Work Phone: [facility] 12-07-2024 15:00-0400 Heart rate 78 /min Ranjith Coke THERAPIST PHYS-C Work Phone: [facility] 12-07-2024 15:00-0400 SaO2% (BldA) [Mass fraction] 98 % Ranjith Coke THERAPIST PHYS-C Work Phone: [facility] 12-07-2024 15:00-0400 Systolic blood pressure 131 mm[Hg] Ranjith Ling THERAPIST PHYS-C Work Phone: [facility] 12-07-2024 14:39-0400 Body temperature 97 [degF] Ranjith Ling THERAPIST PHYS-C Work Phone: [facility] 12-07-2024 14:39-0400 Respiratory rate 24 /min Ranjith Ling THERAPIST PHYS-C Work Phone: [facility] 12-07-2024 12:37-0400 Body height 1463.04 cm Ranjith Ling THERAPIST PHYS-C Work Phone: [facility] 12-07-2024 12:37-0400 Body mass index (BMI) [Ratio] 0 kg/m2 Ranjith Ling THERAPIST PHYS-C Work Phone: [facility] 12-07-2024 12:37-0400 Body weight 2.43 kg Ranjith Ling THERAPIST PHYS-C Work Phone: [facility] 08-22-2024 13:51-0400 Body temperature 98.91 [degF] To Alcaraz MASTER MACHINIST.REFERRAL AND INFORMATION AIDE Work Phone: [facility] 08-22-2024 13:51-0400 Body weight 48.7 kg To Alcaraz MASTER MACHINIST.REFERRAL AND INFORMATION AIDE Work Phone: [facility] 08-22-2024 13:51-0400 Diastolic blood pressure 68 mm[Hg] To Alcaraz MASTER MACHINIST.REFERRAL AND INFORMATION AIDE Work Phone: [facility] 08-22-2024 13:51-0400 Heart rate 94 /min To Alcaraz MASTER MACHINIST.REFERRAL AND INFORMATION AIDE Work Phone: [facility] 08-22-2024 13:51-0400 Respiratory rate 16 /min To Alcaraz MASTER MACHINIST.REFERRAL AND INFORMATION AIDE Work Phone: [facility] 08-22-2024 13:51-0400 SaO2% (BldA) [Mass fraction] 95 % To Alcaraz MASTER MACHINIST.REFERRAL AND INFORMATION AIDE Work Phone: [facility] 08-22-2024 13:51-0400 Systolic blood pressure 122 mm[Hg] To Alcaraz MASTER MACHINIST.REFERRAL AND INFORMATION AIDE Work Phone: [facility] 08-30-2023 13:47-0400 Body temperature 97.34 [degF] ARTURO SHAIKH DO [facility] 08-30-2023 13:47-0400 Diastolic Blood Pressure Non-Invasive 75 mm[Hg] ARTURO SHAIKH DO [facility] 08-30-2023 13:47-0400 Heart rate 100 /min ARTURO SHAIKH DO [facility] 08-30-2023 13:47-0400 Respiratory rate 20 /min ARTURO SHAIKH DO [facility] 08-30-2023 13:47-0400 Systolic Blood Pressure Non-Invasive 106 mm[Hg] ARTURO SHAIKH DO [facility] Encounters Encounter Date Encounter Type Care Provider Facility Start: 01-21-2025 ambulatory Ranjith Ling Facility:[facility] Start: 01-11-2025 End: 01-11-2025 ambulatory Ranjith Ling Facility:[facility] Start: 01-06-2025 ambulatory Ten Thornton ty:[facility] Start: 12-29-2024 End: 12-29-2024 ambulatory Ranjith Ling Facility:[facility] Start: 12-29-2024 End: 12-29-2024 ambulatory Ranjith Ling Facility:[facility] Start: 12-22-2024 End: 12-22-[address] Ten Nogueira MD -[facility] Work Phone: Start: 12-22-2024 End: 12-22-2024 ambulatory Ranjith Ling THERAPIST PHYS-C Work Phone: -[facility] Start: 12-16-2024 End: 12-16-2024 ambulatory RANJITH LING MASTER MACHINIST - REFERRAL AND INFORMATION AIDE Facility:[facility] Start: 12-16-2024 End: 12-16-2024 Patient encounter procedure RANJITH LING MASTER MACHINIST - REFERRAL AND INFORMATION AIDE [facility] Start: 12-11-2024 ambulatory [facility] Facility :[facility] Start: 12-07-2024 End: 12-07-2024 Emergency department patient visit Ranjith Ling THERAPIST PHYS-C Work Phone: -Emergency Department Work Phone: Start: 11-26-2024 Non-patient / Non-visit Allegra Garcia -[facility] Work Phone: Start: 11-26-2024 ambulatory Allegra Hylton Facility :[facility] Start: 11-24-2024 End: 11-28-2024 Outreach Lab RANJITH LING MASTER MACHINIST - REFERRAL AND INFORMATION AIDE [facility] Start: 11-24-2024 End: 11-28-2024 ambulatory RANJITH LING MASTER MACHINIST - REFERRAL AND INFORMATION AIDE Facility:[facility] Start: 11-24-2024 End: 11-24-2024 Patient encounter procedure RANJITH LING MASTER MACHINIST - REFERRAL AND INFORMATION AIDE [facility] Start: 11-17-2024 End: 11-17-2024 ambulatory Ranjith Ling THERAPIST PHYS-C Work Phone: -[facility] Start: 11-17-2024 End: 11-17-[address] Jeronimo Perez MD -[facility] Work Phone: Start: 11-17-2024 End: 11-17-2024 ambulatory Jeronimo spike Facility:[facility] Start: 08-25-2024 End: 08-28-2024 ambulatory RANJITH LING Facility:[facility] Start: 08-24-2024 End: 08-24-2024 Follow-up encounter Sole Villa MASTER MACHINIST.REFERRAL AND INFORMATION AIDE Work Phone: [facility] Comment on above: Results Start: 08-22-2024 End: 08-22-2024 Office outpatient visit 25 minutes To Alcaraz MASTER MACHINIST.REFERRAL AND INFORMATION AIDE Work Phone: [facility] Comment on above: UTI symptoms (Primar y Dx); Acute left flank pain Start: 08-22-2024 End: 08-22-2024 ambulatory RANJITH LING Facility:[facility] Start: 11-19-2023 End: 11-19-2023 Patient encounter procedure RANJITH LING MASTER MACHINIST - REFERRAL AND INFORMATION AIDE [facility] Start: 08-30-2023 End: 08-30-2023 Emergency department patient visit ARTURO SHAIKH [facility] Start: 11-30-[address] JERONIMO PEREZ MD Fa cility:B Start: 10-11-2022 Orders Only Melissa Hernadez er MASTER MACHINIST.REFERRAL AND INFORMATION AIDE Work Phone: [facility] Comment on above: Tobacco use disorder (Primary Dx) Start: 09-30-2022 ambulatory RANJITH BENITES MASTER MACHINIST - REFERRAL AND INFORMATION AIDE Facility:[facility] Start: 09-18-2022 End: 09-22-2022 ambulatory RANJITH LING MASTER MACHINIST - REFERRAL AND INFORMATION AIDE Facility:[facility] Start: 01-10-2022 Telephone encounter Bonny Pena MASTER MACHINIST.REFERRAL AND INFORMATION AIDE Work Phone: [facility] Comment on above: Results Start: 07-04-2021 End: 07-04-2021 Patient encounter procedure RANJITH LING MASTER MACHINIST - REFERRAL AND INFORMATION AIDE [facility] Start: 06-20-2021 End: 06-20-2021 Patient encounter procedure RANJITH LING MASTER MACHINIST - REFERRAL AND INFORMATION AIDE [facility] Procedures Date Procedure Procedure Detail Performing Clinician Start: 12-29-2024 Calcium measurement Baldemar Ling THERAPIST PHYS-C Work Phone: Start: 12-29-2024 Estimated creatinine clearance Ranjith Ling THERAPIST PHYS-C Work Phone: Start: 12-24-2024 Parathyroid hormone measurement Ranjith Ling THERAPIST PHYS-C Work Phone: Start: 12-22-2024 Urnls dip stick/tabl et reagent auto microscopy Ranjith Ling THERAPIST PHYS-C Work Phone: Start: 12-22-2024 Folic acid measureme nt, RBC Ranjith Ling THERAPIST PHYS-C Work Phone: Comment on above: Performed at: [address] Director: Jeronimo Means PhD, Phone: [phone] Start: 12-22-2024 Immature reticulocyt e fraction Ranjith Ling THERAPIST PHYS-C Work Phone: Start: 12-22-2024 Serum inorganic phos phate measurement Ranjith Ling THERAPIST PHYS-C Work Phone: Start: 12-22-2024 Total iron binding capacity measurement Ranjith Ling THERAPIST PHYS-C Work Phone: Start: 12-22-2024 Urine culture Ranjith price THERAPIST PHYS-C Work Phone: Start: 12-07-2024 Estimated creatinine clearance Ranjith Ling THERAPIST PHYS-C Work Phone: Start: 11-17-2024 Endomysial antibody IgA level Ranjith Ling THERAPIST PHYS-C Work Phone: Start: 08-22-2024 Urnls dip stick/tabl et rgnt auto w/o microscopy To Alcaraz MASTER MACHINIST.REFERRAL AND INFORMATION AIDE Work Phone: Plan of Treatment Date Care Activity Detail Author Start: 08-29-2033 Urine microalbumin profile DTaP,Tdap,Td Vaccine (3 - Td or Tdap) [facility] Start: 12-13-2031 RSV Vaccine (1 - 1-d ose 75+ series) RSV Vaccine (1 - 1-dose 75+ series) [facility] Start: 08-14-2025 Screening for malign ant neoplasm of colon [facility] Start: 01-06-2025 CT of thorax with contrast Chest WITH Contrast [facility] Start: 01-06-2025 Patient encounter procedure Registered Clinical -Cat Scan WC Work Phone: Start: 12-29-2024 Patient encounter procedure Registered Clinical -Laboratory Specimen Work Phone: Start: 12-29-2024 Registered Recurring Registered Recu rring -[facility] Start: 12-29-2024 End: 12-29-2024 Patient encounter procedure Lymphadenopathy -[facility] Work Phone: Start: 12-07-2024 [facility] Start: 11-02-2024 Influenza vaccination Influenz a Vaccine (Season Ended) [facility] Start: 03-04-2024 Advance Directive Discussion Advance Directive Discussion [facility] Start: 11-03-2023 Covid-19 Vaccine ( season) Covid-19 Vaccine ( season) [facility] Start: 11-02-2022 Influenza vaccination INFLUENZA (#1) [facility] Start: 03-04-2022 ADVANCE DIRECTIVE DISCUSSION ADVANCE DIRECTIVE DISCUSSION [facility] Start: 03-04-2022 DEPRESSION ASSESSMENT DEPRESSION ASS ESSMENT [facility] Start: 2021 ADVANCE DIRECTIVE DISCUSSION ADVANCE DIRECTIVE DISCUSSION [facility] Start: 2021 BONE DENSITY BONE DENSITY [facility] Start: 2021 Screening for osteoporosis Bone Density Screening [facility] Start: 11-02-2021 Influenza vaccination INFLUENZA (#1) [facility] Start: 03-04-2021 DEPRESSION ASSESSMENT DEPRESSION ASS ESSMENT [facility] Start: 09-13-2016 Pneumococcal Vaccine : 50+ (2 of 2 - PCV) Pneumococcal Vaccine: 50+ (2 of 2 - PCV) [facility] Start: 11-09-2015 Shingrix Vaccine (2 of 3) Shingrix Vaccine (2 of 3) [facility] Start: 2006 SHINGRIX VACCINE (1 of 2) SHINGRIX VACCINE (1 of 2) [facility] Start: 2001 COLOGUARD (FIT-DNA) COLOGUARD (FIT-D NA) [facility] Start: 2001 Colonoscopy COLONOSCOPY [facility] Start: 2001 COLORECTAL CANCER SCREENING COLORECTAL CANCER SCREENING [facility] Start: [address] COLONOGRAPHY [facility] Start: 2001 DIABETES SCREEN DIABETES SCREEN [facility] Start: 2001 Diabetes Screening Diabetes Screenin g [facility] Start: 2001 FECAL OCCULT BLOOD FECAL OCCULT BLOO D [facility] Start: 2001 Lipid panel Lipid Screening [facility] Start: 2001 LIPID SCREEN LIPID SCREEN [facility] Start: 2001 Screening for malign ant neoplasm of colon [facility] Start: 2001 SIGMOIDOSCOPY SIGMOIDOSCOPY [facility] Start: 1996 Mammography MAMMOGRAM [facility] Start: 1996 Screening for malign ant neoplasm of breast Mammogram Screening [facility] Start: 12-13-1975 Urine microalbumin profile DTAP,TDAP,TD (1 - Tdap) [facility] Start: 1974 Anxiety Screening Anxiety Screening [facility] Start: 1974 Depression Screening Depression Scre ening [facility] Start: 1974 HEPATITIS C SCREENING HEPATITIS C [facility] Start: 1974 Hepatitis C screening Hepatitis C [facility] Start: 1974 HIV SCREENING HIV SCREENING [facility] Start: 1962 PNEUMOCOCCAL: 65+ (1 - PCV) PNEUMOCOCCAL: 65+ (1 - PCV) [facility] Start: 06-12-1957 COVID-19 VACCINE (#1) COVID-19 VACCI NE (#1) [facility] Bacteria identified in Urine by Culture BACTERIAL CULTURE, URINE Microbiology Routine UTI symptoms Ordered: 08/22/2024 [facility] Work Phone: Comment on above: Ordered: 08/22/2024 Bacteria identified in Urine by Culture BACTERIAL CULTURE, URINE Microbiology Routine UTI symptoms Ordered: 08/24/2024 [facility] Work Phone: Comment on above: Ordered: 08/24/2024 Patient Education ED Abdominal P ain Unkn Cause Fem [facility] Work Phone: [facility] Immunizations Immunization Date Immunization Notes Care Provider Debbie rubin 08-30-2023 tetanus toxoid, redu jocelyn diphtheria toxoid, and acellular pertussis vaccine, adsorbed ARTURO SHANTAJan DO [facility] 12-28-2016 influenza virus vaccine, unspecified formulation To Alcaraz ALEX.REFERRAL AND INFORMATION AIDE Work Phone: [facility] Payers Date Payer Category Payer Self-pay 2023 Unknown [id number] 2021 Private Health Insurance [id number] 2015 Private Health Insurance [id number] 1955 Unknown [id number] 2.16.8 [id number] 1955 Unknown [id number] 2.16.8 [id number] 1955 Unknown [id number] 2.16.8 [id number] 1955 Unknown [id number] 2.16.8 [id number] 1955 Unknown [id number] 2.16. [id number] 1955 Unknown [id number] 2.16. [id number] 1955 Unknown [id number] 2.16. [id number] 1955 Unknown [id number] 2.16. [id number] Unknown [id number] Unknown [id number] 2.16.8 40.1.617648.3.579.2.462 Unknown [id number] 2.16.8 40.1.088554.3.579.2.462 Unknown [id number] 2.16.8 40.1.454104.3.579.2.462 Unknown [id number] 2.16.8 40.1.065940.3.579.2.462 Unknown [id number] 2.16.8 40.1.626488.3.579.2.462 Unknown [id number] 2.16.8 40.1.614063.3.579.2.462 Unknown [id number] 2.16.8 40.1.885925.3.579.2.462 Unknown [id number] 2.16.8 40.1.261933.3.579.2.462 Unknown [id number] 2.16.8 40.1.973449.3.579.2.462 Unknown [id number] 2.16.8 40.1.577701.3.579.2.462 Unknown [id number] 2.16.8 40.1.783406.3.579.2.462 Social History Date Type Detail Facility Start: 12-08-2018 Tobacco smoking status Heavy t obacco smoker (finding) [facility] Start: 1955 Sex Assigned At Female [facility] Start: 07-04-2021 Tobacco smoking status Ex-smoker (fi nding) [facility] Start: 01-09-2022 End: 12-07-2024 Tobacco smoking status MIIS Smokes tobacco daily [facility] Work Phone: History of tobacco use Cigarette Smoker [facility] Work Phone: Start: 01-09-2022 Tobacco use and exposure Smokeless tobacco non-user [facility] Work Phone: Start: 1955 Sex Assigned At Not on file [facility] Start: 12-30-2021 End: 01-09-2022 Exposure to SARS-CoV-2 (event) Not sure [facility] Start: 01-09-2022 End: 08-22-2024 History of Social function [facility] Start: 01-09-2022 End: 08-22-2024 Tobacco use panel [facility] Start: 04-23-2023 End: 12-22-2024 Tobacco smoking status Light tobacco smoker (finding) [facility] Sexual O[facility] Start: 01-26-2019 Sex Female (finding) [facility] NEGATED: Highlighted rowStart: NINF History of tobacco use Passive smoker [facility] Work Phone: Functional Status Date Assessment Result Facility 08-30-2023 Functional Status Independent [facility] 08-30-2023 Functional Status Standard Safet y ID band on, Call device within reach, Bed in low position, Wheels locked [facility] Mental Status Date Assessment Result Facility 12-24-2024 Cognitive function Awake [facility] Work Phone: 12-07-2024 Cognitive function Level Of Consciousness Awake [facility] Work Phone: 08-30-2023 Mental Status Orientation Oriented x 4 [facility] 08-30-2023 Mental Status [facility] Clinical Notes 06-20-2021 to 12-22-2024 Note Date & Type Note Facility 12-22-2024 Progress note [facility] 12-22-2024 Progress note Note Date/Time December 22, 2024 4:30pm [facility] [address] [place] [id number] OFFICE VISIT Date of Service: 12/22/24 1424 MR#: [id number] Acct: [id number] Name: ESTELLA CHAO Rep #: [id number] : 1955 From: Ten hernandez MD Age/Sex: 69/F [facility] Status: Signed HPI Subjective Date of [...] estimated to be 2.6 cm in axis. [facility] Medical History (Updated 12/22/24 @ 15:04 by [...] PO QDAY FOR ENERGY 12/22/24 History mv-mn [id number]-hqv-aib-upbs 1 tab PO DAILY SUPPLEMEN T 12/07/24 [...] no focal motor deficits Coordination / Balance: shvzdy-ou-rnzf test normal Speech: speech normal Gait (Neuro): [...] 5. Follow-up after above. Ten Nogueira MD Poultry Husbandry Teacher, [facility] Divisions of Medical Oncology & Hematology Department of Internal Medicine [facility] [place] [address] This note was generated using a voice [...] DAVID Ling; Dr. Jeronimo Perez MD ~ [facility] Work Phone: 1(921) 696-185110-21-2025 Evaluation note* Diagnosis Onset Date Resolution Status Admit Date Anemia acute December 22, 2024 2:16pm Splenomegaly acute December 2:16pm Lymphadenopathy deleted December 032024 2:16pm Lymphadenopathy deleted December 032024 9:52am [facility] Work Phone: 1(221) 148-254810-06-2025 Discharge summary [facility] Medical Records Department [address] [place] [address] Emergency Department Summary 12/07/24 MR#: [id number] Acct: [id number] Name: ESTELLA CHAO Rep #:[id number] : 1955 68 From: Crispin Subramanian MD PCP: Ranjith Ling, THERAPIST PHYS-Morteza Sta tus:DEP ER Location: ED HPI History [...] in for her pain. [facility]. Patient is scheduled for an [...] tightness or heaviness. She denies dyspnea or Grasston exertion. Denies orthopnea or PND. She does report swelling of her ankles recently. Patient has no history of alcohol use or cirrhosis. Prior similar symptoms: Yes Recent Illness/Hospitalization: Yes (Seen by PCP approximately 2 weeks ago. Hercreatinine at that time was ely) [facility] Medical History Depression Emphysema lung COPD (chronic obstructive pulmonary disease) Postmenopausal Lymph node enlargement IBS (irritable bowel syndrome) Positive colorectal cancer screening using Cologuard test Anemia Acute distention of stomach Abdominal pain Celiac disease Hypertension Vitamin D deficiency Splenomegaly Home Medications ?Medication ?Instructions ?Recorded ?Last Taken ?Type cholecalciferol (vitamin D3) 1,250 1,250 mcg PO [facility] BONE [facility] 11/26/24 11/25/24 History mcg (50,000 unit) capsule lisinopril 10 1 tab PO QDAY BLOOD PRESSURE 11/26/24 12/07/24 History mg-hydrochlorothiazide 12.5 mg tablet vitamin B complex 1 tab PO QDAY FOR ENERGY 12/06/24 History mv-mn 301-[id number]-cy3-uiy-ejd-knwk 1 tab PO DAILY SUPPLEMEN T 12/07/24 [...] (Auto) 63.7 Lymph % (Auto) 17.7 L [facility] % (Auto) 15.3 H Eos % (Auto) [...] release (DR/EC) 40 mg PO DAILY mv-mn [id number]-agz-sxu-whyf [Centrum ] 1 tab PO DAILY Primary Care Provider: Ranjith Ling NP Referrals: Ranjith Ling NP, THERAPIST PHYS-C [Primary Care Provider, Family Practice] - 1-2 Weeks Activity Restrictions/Additional Instructions: Keep appointment for outpatient MRI. Print Language: Bahraini Disposition Disposition: Home, Self Care Discharge Date/Time: 12/07/24 15:05 What to do if you have Problems For any increased pain, shortness of breath, bleeding, nausea or vomiting, chestpain, or any unexpected problems, contact your Primary Care Provider. Call [facility] ([phone]) or report tothe closest Emergency Room. Call 911 if necessary. 12/07/24 1525 Cosigner Signature (if applicable): CC: DAVID Ling ~ Signed [facility]10-06-2025 Discharge summary Author Crispin Subramanian [facility] Note Date/Time December 07, 2024 3: 05pm [facility] Medical Records Department [address] [place] [address] Emergency Department Summary 12/07/24 MR#: [id number] Acct: [id number] Name: ESTELLA CHAO Rep #:[id number] : 1955 68 From: Crispin Subramanian [...] in for her pain. She was seenat [facility]. Patient is scheduled for an [...] tightness or heaviness. She denies dyspnea or Grasston exertion. Denies orthopnea or PND. She does report swelling of her ankles recently. Patient has no history of alcohol use or cirrhosis. Prior similar symptoms: Yes Recent Illness/Hospitalization: Yes (Seen by PCP approximately 2 weeks ago. Hercreatinine at that time was ely) [facility] Medical History Depression Emphysema lung COPD (chronic [...] PO QDAY FOR ENERGY 12/06/24 History mv-mn [id number]-ka1-yfk-vdd-likh 1 tab PO DAILY SUPPLEMEN T 12/07/24 [...] (Auto) 63.7 Lymph % (Auto) 17.7 L Dickenson % (Auto) 15.3 H Eos % (Auto) [...] tablet,delayed release (DR/EC) 40 mg PO DAILY -wv [id number]-ko5-ptu-wre-yzrb [Centrum ] 1 tab PO DAILY Primary Care Provider: Ranjith Ling NP Referrals: Ranjith Ling NP, THERAPIST PHYS-C [Primary Care Provider, Family Practice] - 1-2 Weeks Activity Restrictions/Additional Instructions: Keep appointment for outpatient MRI. Print Language: Bahraini Disposition Disposition: Home, Self Care Discharge Date/Time: 12/07/24 15:05 What to do if you have Problems For any increased pain, shortness of breath, bleeding, nausea or vomiting, chestpain, or any unexpected problems, contact your Primary Care Provider. Call [facility] ([phone]) or report to the closest Emergency Room. Call 911 if necessary. 12/07/24 1525 <Electronically signed by Crispin Subramanian MD> Cosigner Signature (if applicable): CC: DAVID Ling ~ Signed [facility] Work Phone: [phone]) 419-335909-23-2025 Evaluation + Plan note Diagnostic Tests Pending * Gliadin Antibody 11/24/24 * HEMLA Panel 11/24/24 * Tissue Transglutaminase Ab (IGA) 11/24/24 * Helicobacter Pylori Antibody 11/24/24 * Z-4-Yhcaitafxvq 11/24/24 * TENZIN by IFA Screen 11/24/24 [...] w/ contrast 07/07/24 * MRI Liver 11/24/24 [facility] 09-23-2025 Evaluation + Plan note Future Scheduled [...] w/ contrast 07/07/24 * MRI Liver 11/24/24 [facility] 06-23-2025 Telephone encounter Note* Telephone Encounter - Cammie Bay LPN - 08/24/2024 11:22 AM EDT Patient returned call and went over results, notes from express care provider with understanding. [facility]06-23-2025 Miscellaneous Notes* Telephone Encounter - Cammie [...] with PCP Please advise [facility] Telephone encounter Note * Telephone Encounter - Keyona Adams MA - 08/24/2024 7:39 AM EDT Left message for patient to return call. Keyona Adams MA [facility]06-23-2025 Telephone encounter Note* Telephone Encounter - Sole Villa APRN.CNP - 08/24/2024 7:07 AM EDT Urine culture reveals mixed bacteria. This can occur during collection when skin contaminants are in the container. Recommend patient provide new specimen (order has been placed) Present to express care as nurse visit for a new urine sample Follow up with PCP Please advise [facility]06-21-2025 Instructions* Patient Instructions* To Alcaraz APRN.CNP [...] R10.9 - Increase fiber in diet - [place] low residue diet - IBUPROFEN 400 MG [...] any other concerning symptoms documented in [facility]-2025 NoteHNO ID: [id number] Author: TO ALCARAZ APRN.CNP Service: ? Author [...] if pain severe or uncontrollable To Alcaraz APRN.REFERRAL AND INFORMATION AIDE -I have reviewed and updated with the [...] patient was discharged. OTC Medications were advised:[facility]06-21-20[facility] History of Present illness Narrative* [...] OTC Medications were advised: [facility] Hospital Discharge instructions Patient Education 08/30/2023 [...] work areas and walkways clear and uncluttered. [id number] [employer]. [address] [place] [address], [place] [address]. All rights reserved. This information is not intended as a substitute for professional medical care. Always follow yourhealthcare professional's instructions. Follow Up Care 08/30/2023 13:35:25 With:KONG TRIANA Address: [facility] [place] [address]- When:2-4 days With:RANJITH LING APRN - REFERRAL AND INFORMATION AIDE Address: [address] [place] [address]- When:2-4 days [facility] 06-28-2024 Note Discharge Instructions Thank you for allowing [facility] to assist you with your healthcare needs. The following is importantdischarge information regarding your hospital visit. Diagnosis from Today's Visit Fall What to Do Next Instructions from Your Care Team No qualifying data available. Post Acute Orders No qualifying data available. You Need to Schedule the Following Appointments Follow Up with KONG TRIANA When:Within 2-4 days Where:[facility] [place] [address]- Follow Up with RANJITH LING MASTER MACHINIST - REFERRAL AND INFORMATION AIDE When:Within 2-4 days Where:[address] [place] [phone]- Allergies Avelox terbinafine Fatigue, Fever, Rash Immunizations [...] work areas and walkways clear and uncluttered. [phone] [employer]. [address] [place] [address], [place] [address]. All rights reserved. This information is not intended as a substitute for professional medical care. Always follow yourhealthcare professional's instructions. Additional Information VACCINATE! IT SAVES LIVES! Members of the community who have not yet received the COVID-19 vaccine and would like to receive it can visit one of [facility] vaccine clinics. There are many vaccine clinic locations within the [facility]. For locations and available times, please visit www.[email or web address].[place].gov/. It is important to note that some COVID mobile vaccine clinics are held outdoors and may be canceled in rainy or stormy conditions. To learn more about pediatric vaccinations (ages 5-11), we invite you to visit the [facility] webpage. https://www.[email or web address]/pages/1883-Nhohc-Comcfglvfcq-Mlnlrztqie-Cbyen-Ida stions.htmlTo learn more about the COVID-19 vaccine, we invite you to visit the CDC website for a list of frequently asked questions. https://www.cdc.gov/coronavirus/2019-ncov/vaccines/faq.html [facility] Patient Portal Access Instructions: Stay connected with your healthcare team and access your personal medical information anytime with the [facility] Patient Portal. If you would like a full copy of your medical records please contact the [facility] Medical Records Department Saturday through Saturday between 8a.m. and 4:30p.m. Please follow the directions below to access the portal: 1.Access the email account you provided upon registration to the hospital.2.Look for an invitation email from [facility].3.Open the email and access the invitation link: Accept Invitation to [facility]4.Fill in the required viramontes to create your account. Sign into [email or web address] with your username and password that you [...] you will allow to register on the [facility] Patient Portal for access to your information. You can also access the [facility] Patient Portal on the gdgt. Simply click on Health Records under [place] and then click on the [facility] logo. [...] Call your local pharmacy or go to http://Entrec.Simple Car Wash/6B5Sy6x to find one close to you.3.Make use of household items: Use cat litter or old coffee grounds to dispose medications if other options arenot available. Mix your drugs with these household products, seal them in an airtight container andthrow it into the garbage. Call [facility]: [phone] to be sure your drugs can be [...] aware that I should contact my doctor. 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 Bonny Pena APRN.CNP documented in this encounterW[facility]04-[facility]-20[facility] HCoV 229E RNA TAB+non- probe Ql [...] MA Mammo Screening Bilateral w/ Yoshi 03/28/21 [facility] Evaluation + Plan note Future Appointments Appointment Date:07/11/2021 01:40:00 PM Scheduled Provider:RANJITH LING APRN, CNP Location:[facility] Appointment Type:PC OV Appointment Date:09/21/2021 10:30:00 AM Scheduled Provider: [facility] Appointment Type:PC Nurse Lab Appointment Date:09/26/2021 01:40:00 PM Scheduled Provider:RANJITH LING APRN, CNP Location:[facility] Appointment Type:PC OV Follow Up Future Scheduled Tests Laboratory* C-Reactive Protein 07/04/21 * Complete Blood Count 07/04/21 * Lipid Profile 09/25/21 * Sedimentation Rate Automated 07/04/21 * Vitamin D Level 09/25/21 * Complete Metabolic Panel 07/04/21 * Complete Metabolic Panel 09/25/21 * Complete Metabolic Panel 07/24/20 Radiology* MA Mammo Screening Bilateral w/ Yoshi 03/28/21 * XR Chest 2 Views (PA & Lateral) 07/04/21 [facility] [employer] + Plan note Future Appointments Appointment Date:10/22/2023 01:20:00 PM Scheduled Provider:RANJITH LING APRN, CNP Location:[facility] Appointment Type: Wellness Annual Future Scheduled [...] Low Dose Lung Cancer Screening (LDCT) 10/09/22 [facility] Evaluation + Plan note Future Appointments Appointment Date:11/26/2023 01:00:00 PM Scheduled Provider:RANJITH LING APRN, CNP Location:[facility] Appointment Type: Wellness Annual Future Scheduled Tests Laboratory* Complete Blood Count 03/21/23 * Albumin/Creatinine Ratio, Random Urine 03/21/23 * Vitamin D Level 03/21/23 * Complete Metabolic Panel 03/21/23 [facility] Evaluation + Plan note Future Appointments Appointment [...] w/ contrast 07/07/24 * MRV Abdomen 12/03/24 [facility] Evaluation note* Diagnosis Tobacco use disorder- Primary documented in this encounter [facility] note* Diagnosis UTI symptoms- Primary Other symptoms involving urinary system Acute left flank pain Abdominal pain, unspecified site documented in this encounter [facility]* Diagnosis UTI symptoms- Primary Other symptoms involving urinary system documented in this encounter [facility] noteNo assessment information availableWMartins Ferry Hospital Work Phone: Hospital course Narrative No data available for this section [facility] Hospital Discharge instructions No data available for this section [facility] Hospital Discharge instructionsAdditional Instructions Keep appointment for outpatient MRI.[facility] Work Phone: Hospital Discharge instructionsAmbulatory Orders* General Surgery Location: None Selected [facility] Work Phone: Progress note No data available for this section [facility] Reason for referral (narrative)No reason for referral information availableWMartins Ferry Hospital Work Phone: Health Concerns Infection Onset [...] Do you have a Healthcare Power of Button Grader? No December 07, 2024 12:45pm Advance Directive Response Recorded Date/ Time Do you have a Healthcare Power of Button Grader? No December 07, 2024 11:45am Chief Complaint [...] Care Team (unrecognized sect ion and content) Road Grader Relationship Specialty Start Date End Date Ranjith Ling, REFERRAL AND INFORMATION AIDE [address] [place] [address] PCP - General Family Medicine 01/09/22 Road Grader Relationship Specialty Start Date End Date Ranjith Ling, REFERRAL AND INFORMATION AIDE [address] [facility] [place] [place] [address] PCP - General Family Medicine 01/09/22 Road Grader Relationship Specialty Start Date End Date Ranjith Ling, REFERRAL AND INFORMATION AIDE [address] [place] [place] [address] PCP - General Family Medicine 01/09/22 Road Grader Relationship Specialty Start Date End Date aRnjith Ling, PEDRO [address] [facility] [place] [address] PCP - General Family Medicine 01/09/22 Team Status: Active Member Role/Relationship Status Dates Ranjith Ling THERAPIST PHYS, THERAPIST PHYS-C Primary care physicia n Active Team Status: Inactive Member Role/Relationship Status Dates Ranjith Ling THERAPIST PHYS, THERAPIST PHYS-C Primary care physician Active Start: November 17, 2024 End: November 17, 2024 Dr. Jeronimo Perez MD Attending physician Active Start: November 17, 2024 End: November 17, 2024 Dr. Jeronimo Perez MD Referring Provider Active Start: November 17, 2024 End: November 17, 2024 Team Status: Active Member Role/Relationship Status Dates Ranjith Ling THERAPIST PHYS, THERAPIST PHYS-C Primary care physician Active Start: November 26, 2024 Allegra Hylton Attending physician Active Start: November 26, 2024 Team Status: Inactive Member Role/Relationship Status Dates Ranjith Ling THERAPIST PHYS, THERAPIST PHYS-C Primary care physician Active Start: December End: December 07, 2024 Dr. Crispin Subramanian MD Emergency Department Physician Active Start: December 07, 2024 End: December 07, 2024 Team Status: Inactive Member Role/Relationship Status Dates Ranjith Ling THERAPIST PHYS, THERAPIST PHYS-C Primary care physician Active Start: December End: December 07, 2024 Dr. Crispin Subramanian MD Attending physician Active St art: December 07, 2024 End: December 07, 2024 Dr. Crispin Subramanian MD Emergency Department Physician Active Start: December 07, 2024 End: December 07, 2024 Team Status: Inactive Member Role/Relationship Status Dates Ranjith Ling THERAPIST PHYS, THERAPIST PHYS-C Primary care physician Active Start: December 222024 End: December 22, 2024 Ranjith Ling THERAPIST PHYS, THERAPIST PHYS-C Referring Provider Active Start: December 22, 2024 End: December 22, 2024 Dr. Ten Nogueira MD Attending physician Active Start: December 22, 2024 End: December 22, 2024 Team Status: Inactive Member Role/Relationship Status Dates Ranjith Ling THERAPIST PHYS, THERAPIST PHYS-C Primary care physician Active Start: December 292024 End: December 29, 2024 Ranjith Ling THERAPIST PHYS, THERAPIST PHYS-C Referring Provider Active Start: December 29, 2024 End: December 29, 2024 Dr. Cassy Andrea MD Attending physician Active Start: December 29, 2024 End: December 29, 2024 Team Status: Active Member Role/Relationship Status Dates Ranjith Ling NP, THERAPIST PHYS-C Primary care physician Active Start: December 292024 Dr. Ten Nogueira MD Attending physician Active Start: December 29, 2024 Dr. Ten Nogueira MD Referring Provider Active Start: December 29, 2024 Team Status: Active Member Role/Relationship Status Dates Ranjith Ling NP, THERAPIST PHYS-C Primary care physician Active Start: December 292024 Dr. Cassy Andrea MD Attending physician Active Start: December 29, 2024 Dr. Cassy Andrea MD Referring Provider Active Start: December 29, 2024 Team Status: Active Member Role/Relationship Status Dates Ranjith Ling THERAPIST PHYS, THERAPIST PHYS-C Primary care physician Active Start: January 062024 [...] or prosecute any alcohol or drug abuse patient.[facility] Hospital[facility] the event this information is protected by the Federal Confidentiality of Alcohol and Drug Abuse Patient Records regulations: The Federal rules restrict any use of the information to criminally investigate or prosecute any alcohol or drug abuse patient.[facility] Hospital[facility] the event this information is protected by the Federal Confidentiality of Alcohol and Drug Abuse Patient Records regulations: The Federal rules restrict any use of the information to criminally investigate or prosecute any alcohol or drug abuse patient.[facility] Hospital[facility] the event this information is protected by the Federal Confidentiality of Alcohol and Drug Abuse Patient Records regulations: The Federal rules restrict any use of the information to criminally investigate or prosecute any alcohol or drug abuse patient.[facility] Reason for Visit (unrecogniz ed section and content) Reason Comments Results Reason Comments Abdominal Pain left side abdominal back migrating into mid back x 1 week Reason Onset Date Comments Results 08/24/2024 INFORMATION SOURCE (unrecogn ized section and content) DATE CREATED AUTHOR 09/03/2023 [facility] ([place]) DATE CREATED AUTHOR AUTHOR'S ORGANIZ ATION 08/24/2024 [facility] DATE CREATED AUTHOR AUTHOR'S ORGANIZ ATION 08/29/2024 [facility] DATE CREATED AUTHOR AUTHOR'S ORGANIZ ATION 12/21/2024 [facility] DATE CREATED AUTHOR AUTHOR'S ORGANIZ ATION 01/13/2025 [facility] Goals (unrecognized section and content) Goals may [...] BE BASED ON THE PRIMARY CLINICAL RECORDS. [employer] provides no warranty or guarantee of the accuracy or completeness of information in this document.
[2025-01-25] VITALS (30 sets, daily range): BP systolic 97–126; BP diastolic 47–81; PULSE 86–108; RESP 14–24; TEMP 36.7–37.3; O2SAT 86–100; BMI 18.8; BMI 19.1
[2025-01-25] MEDS: Furosemide 20 MG/2 ML VIAL IV ×2 (00:53→05:48)
[2025-01-25] MEDS: 0.9% Saline Lock 10 ML Syringe IV ×3 (02:12→05:48)
[2025-01-25 05:57] LABS: Hematocrit 23.1 % (37-47); Hemoglobin 7.1 g/dL (12.0-15.0); Immature Granulocytes Count 0.040 X10^3/uL (0.0-0.0); Mean Corp Hgb Conc 30.7 g/dL (32-36); Mean Corpuscular Volume 106.0 fL (81-99); Mean Platelet Vol. 10.6 fl (6.2-12.0); NRBC Flagged by Analyzer 0 % (0-5); POSITIVE COUNT YES; POSITIVE MORPHOLOGY YES; Platelet Count 62 K/mm3 (150-450); RBC Distribution Width CV 18.0 % (11.6-14.6); RBC Distribution Width SD 69.9 fl (35.1-43.9); Red Blood Count 2.18 M/mm3 (4.2-5.4); White Blood Count 2.8 K/mm3 (4.4-11.0)
[2025-01-25 06:10] LABS: Differential Indicated SCAN CRITERIA MET
--- NOTE | 2025-01-25 06:40 | EX.PCM.CONCC ---
Assessment & Plan Assessment/Plan (1) Acidosis, lactic: PLAN: Plan RECOMMENDATIONS: 1. Gentle diuresis as tolerated by hemodynamics and renal function. 2. Obtain echocardiogram. 3. Send type and screen, given anemia. Check fecal occult blood. 4. PPI therapy twice daily. 5. Empiric antimicrobials, pending results of blood and urine cultures. 6. Oncology and palliative care consultation to assist with medical management and goals of care. 7. Continue to monitor H&H and transfuse if hemoglobin drops below 7 g/dL. IMPRESSIONS: 1. Lactic acidosis Most likely secondary to underlying active malignant process. I do not feel that the patient is in a shock state as her hemodynamic status has been stable and end organ perfusion appears intact, as evidenced by normal creatinine and renal function. No discernible source of infection has yet to be identified. The patient did not receive IV fluids, as she appears to be volume overloaded on examination. In light of the hydronephrosis noted on examination, I am going to place the patient empirically on antimicrobials, while awaiting infectious workup. However, as noted before, I do suspect that the lactic acidemia is a consequence of her malignancy, as opposed to an occult infectious process. The patient remains hemodynamically stable. 2. Newly diagnosed mantle cell lymphoma Agree with oncology consultation to assist with medical management along with palliative care to facilitate goals of care discussion. 3. Anemia The patient has chronic anemia which has worsened over the course of this hospitalization. Hemoglobin this morning was noted to be 7.1 g/dL. Accordingly, we will send type and screen. PPI therapy will be continued. Stool for occult blood will be checked. Plan to transfuse once hemoglobin drops below 7 g/dL. 4. History of GERD/prior tobacco dependency in remission/generalized weakness with malnutrition Complicates care, management, recovery and prognosis. Continue supportive measures as noted above. The patient will require PT/OT evaluations. This note was generated with [employer] dictation software. It may contain incorrect words, spelling, and punctuation that were not noted in checking the note before signing. HPI Consult Data Date of Consult: 01/25/25 HPI Narrative Reason for Consultation: Lactic acidosis HPI Narrative: The patient is a 69-year-old female, with a history as outlined below, who presented to the emergency department on January 24 with generalized weakness and unintentional weight gain. The patient was recently diagnosed with B-cell/mantle cell lymphoma and is currently followed by oncology on an outpatient basis. She underwent port placement by general surgery on January 21, with tentative plans to begin chemotherapy this week. Aside from the aforementioned, the patient has a history of gastroesophageal reflux and prior tobacco dependency. On presentation to the emergency department, the patient was noted to be afebrile and hemodynamically stable. She was maintaining appropriate oxygen saturations on room air. Laboratory evaluation revealed evidence of pancytopenia with a hemoglobin of 8.2 g/dL and platelet count of 59,000. Chemistry profile was notable for an anion gap of 19 with a BUN of 23 and creatinine of 1.07. Lactate was elevated at 10.7. BNP was increased to 2370. CT imaging of the chest/abdomen/pelvis was obtained which demonstrated generalized edema with moderate bilateral pleural effusions and moderate or large volume ascites with marked splenomegaly and diffuse retroperitoneal lymphadenopathy. In addition, mild right-sided hydronephrosis was noted without any discrete mass or ureteral stone visualized. The patient was ultimately placed on low-dose diuretic therapy and admitted to the medical intensive care unit for further management. The patient had an uneventful night. Her hemoglobin has dropped to 7.1 g/dL. Consultation to oncology services is currently pending. [facility] Medical History Wears glasses Cancer History of renal disease Heartburn Gastric reflux Former smoker History of edema Hypokalemia Encounter for education 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 Depression Emphysema lung COPD (chronic obstructive pulmonary disease) Postmenopausal IBS (irritable bowel syndrome) Positive colorectal cancer screening using Cologuard test Anemia Acute distention of stomach Abdominal pain Hypertension Vitamin D deficiency Splenomegaly Home Medications ?Medication ?Instructions ?Recorded ?Last Taken ?Type cholecalciferol (vitamin D3) 1,250 1,250 mcg PO QMONTH BONE HEALTH 11/26/24 01/19/25 History mcg (50,000 unit) capsule vitamin B complex 1 tab PO QDAY FOR ENERGY 11/26/24 01/19/25 History mv-mn [id number] 1 tab PO DAILY SUPPLEMENT 12/07/24 01/19/25 History pantoprazole 40 mg tablet,delayed 40 mg PO DAILY STOMACH 12/07/24 12/06/24 History release allopurinol 300 mg tablet 300 mg PO QDAY #7 tabs 01/14/25 Unknown Rx lidocaine-prilocaine 2.5 %-2.5 % 1 applic topical ONCE PRN port 01/14/25 Unknown Rx topical cream access 30 days #30 grams ondansetron 8 mg disintegrating 8 mg PO Q8H PRN nausea and 01/14/25 Unknown Rx tablet vomiting #30 tabs potassium chloride 20 mEq 20 meq PO DAILY #3 tabs 01/14/25 01/19/25 Rx tablet,extended release(part/cryst) tramadol 50 mg tablet 50 mg PO Q6H PRN pain 2 days #5 01/21/25 Unknown Rx tabs Allergy/AdvReac Type Severity Reaction Status Date / Time moxifloxacin (From Avelox) Allergy Unknown unknown Verified 01/24/25 15:27 terbinafine Allergy Unknown rash Verified 01/24/25 15:27 Family History Father Alcohol abuse Mother Heart disease Depression Surgical History History of dental surgery Social History Smoking Status: Former smoker Tobacco: How many years used: 50 alcohol intake: never substance use type: does not use ROS ROS Narrative 10 systems were reviewed with pertinent positives as noted in the HPI above. Physical Exam Const alert and no apparent distress General Appearance: cooperative and ill appearing HEENT normocephalic and head/scalp atraumatic Eyes PERRL, EOMs intact bilaterally and conjunctivae normal Neck supple General: trachea midline Chest inspection of chest normal Resp normal respiratory effort and no use of accessory muscles Effort and Inspection: able to speak in complete sentences Auscultation: diminished lung sounds Cardio regular rate and regular rhythm GI soft to palpation Inspection: anasarca present and abdominal distention Extremity General Extremity: edema; Negative for clubbing Skin no rashes or lesions noted Neuro CN's II-XII intact bilaterally, moves all extremities and no focal motor deficits Psych Mood & Affect: flat affect Lab / Micro Data 01/25/25 05:40 01/25/25 05:40 Labs: Laboratory Results - last 24 hr 01/24/25 17:25: WBC 3.0 L, RBC 2.57 L, Hgb 8.2 L, Hct 27.1 L, MCV 105.4 H, MCH 31.9, MCHC 30.3 L, RDW Std Deviation 69.4 H, RDW Coeff of Jeffery 18.0 H, Plt Count 59 L, MPV 10.6, Immature Gran % (Auto) 1.000 H, Neut % (Auto) 64.8, Lymph % (Auto) 20.8, Kendall % (Auto) 12.1 H, Eos % (Auto) 0.3, Baso % (Auto) 1.0, Absolute Neuts (auto) 1.9 L, Absolute Lymphs (auto) 0.62 L, Nucleated RBC % 0, Platelet Estimate MOD DEC, Polychromasia 1+, Anisocytosis 1+, PT 16.2 H, INR 1.3, APTT 38.4 H, Sodium 144, Potassium 4.4, Chloride 103, Carbon Dioxide 21.8, Anion Gap 19 H, BUN 23 H, Creatinine 1.07, Estim Creat Clear Calc 45.55 L, Est GFR (MDRD) Non-Af 57 L, BUN/Creatinine Ratio 21.3 H, Glucose 83, Lactic Acid 10.7 H*, Calcium 9.3, Total Bilirubin 0.80, AST 70 H, ALT 30, Alkaline Phosphatase 216 H, Troponin T High Sens 21 H, NT pro BNP II 2369 H, Total Protein 5.2 L, Albumin 2.8 L, Globulin 2.3, Albumin/Globulin Ratio 1.2 01/24/25 20:17: Troponin T Hi Sens 2 Hr 18 H 01/24/25 21:29: Troponin T Hi Sens 4Hr 21 H 01/24/25 21:40: Lactic Acid 12.7 H* 01/25/25 02:09: Lactic Acid 11.9 H* 01/25/25 05:40: WBC 2.8 L, RBC 2.18 L, Hgb 7.1 L, Hct 23.1 L, MCV 106.0 H, MCH 32.6 H, MCHC 30.7 L, RDW Std Deviation 69.9 H, RDW Coeff of Jeffery 18.0 H, Plt Count 62 L, MPV 10.6, Immature Gran % (Auto) 1.400 H, Neut % (Auto) 60.9, Lymph % (Auto) 24.4, Kendall % (Auto) 11.5 H, Eos % (Auto) 0.4, Baso % (Auto) 1.4 H, Absolute Neuts (auto) 1.7 L, Absolute Lymphs (auto) 0.68 L, Nucleated RBC % 0 Imaging Radiology Impression Chest X-Ray 01/24/25 17:41 IMPRESSION: Pulmonary findings as above. Reading Location: [id number] Chest/Abdomen/Pelvis CTA 01/24/25 18:35 IMPRESSION: 1. Generalized fluid overload/third-spacing with moderate bilateral pleural effusions, moderate-large volume abdominopelvic ascites, and diffuse subcutaneous edema. 2. Marked splenomegaly. Diffuse retroperitoneal lymphadenopathy, and enlarged inguinal lymph nodes. Nonspecific subcentimeter mediastinal/hilar and axillary nodes, all of which were shown to be hypermetabolic on recent PET-CT, likely related to known mantle cell lymphoma. 3. Mild right hydronephrosis without any discrete obstructing mass or ureteral stone visualized. Few subcentimeter nonobstructive right renal stones. Reading Location: [id number] Charges/Coding Visit Charges Inpatient E&M: 38993 Init Hosp L3
[2025-01-25 06:47] LABS: AST(SGOT) 64 U/L (<=31); Alanine Aminotransfer ALT/SGPT 26 U/L (<=34); Albumin, Serum 2.6 g/dL (3.4-4.8); Alkaline Phosphatase 192 U/L (35-104); Anion Gap 20 (5-15); BUN 22 mg/dL (4-19); BUN/Creat Ratio 21.2 RATIO (10-20); Calcium,Total 8.9 mg/dL (7.6-11.0); Carbon Dioxide 21.7 mmol/L (21.0-32.0); Chloride 100 mmol/L (98-108); Estimated Creatinine Clearance 45.47 ml/min (50-250); Globulin 2.0 g/dL (2.2-4.2); Glucose 77 mg/dL (70-99); Potassium 4.2 mmol/L (3.3-5.1)
[2025-01-25 07:00] LABS: Reflex Lactate? Y
--- NOTE | 2025-01-25 07:09 | ECHOD_ITS ---
Reason For Study Reason For Study: Dyspnea/SOB Procedure This was a 2D Doppler, Color Flow transthoracic echocardiogram. The study was technically difficult. Best images taken from subcostal window. Exam performed portable in ICU/CCU. Left Ventricle Normal LV size. The left ventricular ejection fraction is 65 %. Stage 1 diastolic dysfunction. No regional wall motion abnormalities noted. Right Ventricle Normal RV size. Normal systolic function. Atria Normal left atrium. Normal right atrium. Mitral Valve Normal mitral valve. Tricuspid Valve Normal tricuspid valve. Aortic Valve Trisinus/trileaflet aortic valve. Pulmonic Valve Normal pulmonic valve. Great Vessels Normal aortic root. The pulmonary artery is normal size. Inferior vena cava collapse with respiration. Pericardium/Pleural No pericardial effusion. Small left pleural effusion. MMode/2D Measurements & Calculations LVIDd: 3.4 cm IVSd: 0.85 cm LAV(MOD-bp): 24.9 ml RVDd: 3.5 cm LVPWd: 0.62 cm LAV(MOD-bp) Indexed: 15.3 ml/m2 LAV(MOD- sp2): 19.8 ml LAV(MOD- sp4): 27.0 ml LA A4 area: 12.4 cm2 RA A4 area: 11.5 cm2 Time Measurements MV dec time: 0.20 sec Doppler Measurements & Calculations MV E max deo: 82.7 cm/sec Lat Peak E' Deo: 16.2 cm/sec Med Peak E' Deo: 14.7 cm/sec MV A max deo: 95.2 cm/sec E/E' lat: 5.1 E/E' med: 5.6 MV E/A: 0.87 MV V2 max: 103.2 cm/sec MV P1/2t max deo: 100.9 cm/sec Ao V2 max: 136.6 cm/sec MV max P.3 mmHg MV P1/2t: 59.8 msec Ao max P.5 mmHg MV V2 mean: 60.9 cm/sec MV dec slope: 494.8 cm/sec2 MV mean P.8 mmHg MV V2 VTI: 24.3 cm MVA(P1/2t): 3.7 cm2 LV V1 max: 121.3 cm/sec PA V2 max: 137.1 cm/sec LV V1 max P.9 mmHg ECHO/Echo Complete Interpretation Summary Normal LV size. The left ventricular ejection fraction is 65 %. Stage 1 diastolic dysfunction. Structurally normal valves. Ordering Physician: Yovani Rubin Performed By: Shad Lord RCS
--- NOTE | 2025-01-25 07:29 | PCM.PN.HOSP ---
Reason for Visit Chief Complaint: Progressive weakness and volume overload Subjective Subjective Patient is a 69-year-old female with history of mantle cell lymphoma who presented with worsening weakness and volume overload. Objective Data Objective Data Vital Signs: Vital Signs Temp Pulse Resp BP Pulse Ox O2 Del Method 98.2 F 90 17 106/57 L 92 Room Air 01/25/25 05:00 01/25/25 07:00 01/25/25 07:00 01/25/25 07:00 01/25/25 02:30 01/25/25 07:00 Oxygen Delivery Method Room Air Weight: 55.1 kg Body Mass Index (BMI) 19.1 Intake & Output: Intake and Output for Last 24 Hours 01/23/25 01/24/25 01/25/25 23:59 23:59 23:59 Intake Total 240 / 240 Output Total 400 / 400 Balance -160 / -160 Lab / Micro Data 01/25/25 05:40 01/25/25 05:40 Labs: Laboratory Results - last 24 hr 01/24/25 17:25: WBC 3.0 L, RBC 2.57 L, Hgb 8.2 L, Hct 27.1 L, MCV 105.4 H, MCH 31.9, MCHC 30.3 L, RDW Std Deviation 69.4 H, RDW Coeff of Jeffery 18.0 H, Plt Count 59 L, MPV 10.6, Immature Gran % (Auto) 1.000 H, Neut % (Auto) 64.8, Lymph % (Auto) 20.8, Denali % (Auto) 12.1 H, Eos % (Auto) 0.3, Baso % (Auto) 1.0, Absolute Neuts (auto) 1.9 L, Absolute Lymphs (auto) 0.62 L, Nucleated RBC % 0, Platelet Estimate MOD DEC, Polychromasia 1+, Anisocytosis 1+, PT 16.2 H, INR 1.3, APTT 38.4 H, Sodium 144, Potassium 4.4, Chloride 103, Carbon Dioxide 21.8, Anion Gap 19 H, BUN 23 H, Creatinine 1.07, Estim Creat Clear Calc 45.55 L, Est GFR (MDRD) Non-Af 57 L, BUN/Creatinine Ratio 21.3 H, Glucose 83, Lactic Acid 10.7 H*, Calcium 9.3, Total Bilirubin 0.80, AST 70 H, ALT 30, Alkaline Phosphatase 216 H, Troponin T High Sens 21 H, NT pro BNP II 2369 H, Total Protein 5.2 L, Albumin 2.8 L, Globulin 2.3, Albumin/Globulin Ratio 1.2 01/24/25 20:17: Troponin T Hi Sens 2 Hr 18 H 01/24/25 21:29: Troponin T Hi Sens 4Hr 21 H 01/24/25 21:40: Lactic Acid 12.7 H* 01/25/25 02:09: Lactic Acid 11.9 H* 01/25/25 05:40: WBC 2.8 L, RBC 2.18 L, Hgb 7.1 L, Hct 23.1 L, MCV 106.0 H, MCH 32.6 H, MCHC 30.7 L, RDW Std Deviation 69.9 H, RDW Coeff of Jeffery 18.0 H, Plt Count 62 L, MPV 10.6, Immature Gran % (Auto) 1.400 H, Neut % (Auto) 60.9, Lymph % (Auto) 24.4, Denali % (Auto) 11.5 H, Eos % (Auto) 0.4, Baso % (Auto) 1.4 H, Absolute Neuts (auto) 1.7 L, Absolute Lymphs (auto) 0.68 L, Nucleated RBC % 0, Platelet Estimate MOD DEC, Sodium 142, Potassium 4.2, Chloride 100, Carbon Dioxide 21.7, Anion Gap 20 H, BUN 22 H, Creatinine 1.03, Estim Creat Clear Calc 45.47 L, Est GFR (MDRD) Non-Af 59 L, BUN/Creatinine Ratio 21.2 H, Glucose 77, Calcium 8.9, Total Bilirubin 0.63, AST 64 H, ALT 26, Alkaline Phosphatase 192 H, Total Protein 4.6 L, Albumin 2.6 L, Globulin 2.0 L, Albumin/Globulin Ratio 1.3 Radiography Diagnostic Testing: Radiology Impression Chest X-Ray 01/24/25 17:41 IMPRESSION: Pulmonary findings as above. Reading Location: [address] Chest/Abdomen/Pelvis CTA 01/24/25 18:35 IMPRESSION: 1. Generalized fluid overload/third-spacing with moderate bilateral pleural effusions, moderate-large volume abdominopelvic ascites, and diffuse subcutaneous edema. 2. Marked splenomegaly. Diffuse retroperitoneal lymphadenopathy, and enlarged inguinal lymph nodes. Nonspecific subcentimeter mediastinal/hilar and axillary nodes, all of which were shown to be hypermetabolic on recent PET-CT, likely related to known mantle cell lymphoma. 3. Mild right hydronephrosis without any discrete obstructing mass or ureteral stone visualized. Few subcentimeter nonobstructive right renal stones. Reading Location: [facility] Physical Exam Narrative GENERAL: cooperative But frail looking HEENT: Atraumatic; normocephalic EYES; Anicteric, Normal Conjunctiva NECK; supple, normal thyroid, RESPIRATORY: Diminished to auscultation CARDIOVASCULAR: Regular S1 S2, GI: soft, normoactive bowel sounds, : No Renal angle tenderness; EXTREMITIES: Bilateral pedal edema no clubbing, MUSCULOSKELETAL: no muscle wasting NEURO: Awake; no lateralizing signs. SKIN: No Rash PSYCH; Flat affect Assessment & Plan Assessment/Plan (1) Adult failure to thrive: (2) Acidosis, lactic: (3) Pancytopenia: (4) Mantle cell lymphoma: QUALIFIERS: Lymphoma site: multiple regions Qualified Code(s): C83.18 - Mantle cell lymphoma, lymph nodes of multiple sites PLAN: Plan Patient is a 69-year-old female with history of mantle cell lymphoma who presented with worsening weakness and volume overload. 1. Anasarca ? Related to patient significant tumor burden. Patient has been started on diuretic therapy however this was discontinued after discussion with both oncology as well as adult school counselor given patient high risk for tumor lysis syndrome 2. Lactic acidosis ? Related to patient underlying malignancy patient symptoms not consistent with sepsis 3. Pancytopenia ? Malignancy related monitoring with daily CBC with differential 4. Mantle cell lymphoma -Had port placed with plan to initiate chemotherapy with bendamustine/rituxin on 01/25. Has had worsening weakness and volume overload presumably secondary to her cancer. CT chest abdomen pelvis on admit showed known massive splenomegaly and known diffuse retroperitoneal lymphadenopathy with worsening moderate bilateral pleural effusions and diffuse ascites. Case was discussed with oncologist Dr. Nogueira patient started prophylactically on allopurinol to decrease her risk of tumor lysis syndrome. Plan is to initiate chemo in the hospital 5. GERD ? Patient is on PPI 6. Humoral hypercalcemia of malignancy ? Patient calcium level on 12/22/2024 was 12.2 down to 8.5 with treatment 7. COPD ? Not in exacerbation aerosol treatment as needed 8. Vitamin D deficiency ? Patient is on cholecalciferol supplements q. monthly 9.DVT prophylaxis ? On enoxaparin Time spent in the patient's overall evaluation,decision-making process, review of diagnostic data, adjustment of management, discussion with other providers, nursing nursing and ancillary staff involved in patient's care documentation, 50 Minutes Charges/Coding Visit Charges Inpatient E&M: 72515 Init Hosp L3
[2025-01-25] MEDS: Pantoprazole Sodium 40 MG in 0.9% Normal Saline (100mL MB+) 100 ML 300 MG IV ×2 (07:51→21:16)
[2025-01-25] MEDS: Piperacil/Tazobactam 3.375 GM in 0.9% Normal Saline (50mL MB+) 50 ML IV ×3 (09:36→21:15)
--- NOTE | 2025-01-25 11:02 | CASEMGMT ---
AMARILIS CM to the pt's room for assessment, pt is currently getting an Echo. CM to follow.
[2025-01-25 11:37] LABS: Mucous, Urine 0 SEEN /hpf (<or=2+)
[2025-01-25] MEDS: LACTATED RINGERS 500 ML 999 ML IV (11:39)
[2025-01-25 11:42] LABS: Color, Urine Yellow (Yellow); Glucose, Dipstick Normal (Normal); Ketone-Dipstick Negative (Negative); Leukocyte Esterase-Dipstick 100 /ul (Negative); Nitrite-Dipstick Negative (Negative); Occult Blood-Urine 150 /ul (Negative); Protein-Dipstick 15 mg/dl (Negative); Specific Gravity, Urine 1.010 (1.002-1.030); Urine Bilirubin Dipstick Negative (Negative)
[2025-01-25 11:43] LABS: Red Blood Cells-Urine 0-5 SEEN /hpf (0-5); Squamous Epithelial Cells - UA 0-5 SEEN /hpf (5-10)
[2025-01-25 11:44] LABS: Calcium Oxalate Crystals Ur 1+ /hpf (<or=2+)
[2025-01-25 11:52] LABS: LDH 462 U/L (84-246); Uric Acid 9.3 mg/dL (2.6-6.0)
--- NOTE | 2025-01-25 12:26 | CON.PCM.ON_ITS ---
Assessment & Plan Assessment/Plan (1) Mantle cell lymphoma: Status: Chronic Code(s): C83.10 - Mantle cell lymphoma, unspecified site Qualifiers: Lymphoma site: multiple regions Qualified Code(s): C83.18 - Mantle cell lymphoma, lymph nodes of multiple sites Plan: 69-year-old female with stage IV mantle cell lymphoma involving bone marrow, lymph nodes above and below the diaphragm and with massive splenomegaly. P53 is wild-type Patient presented with several months of vague illness, increasing fatigue weight loss despite preserved appetite and abdominal distention. Negative hepatitis B, C and HIV serologies. At presentation she had malignant hypercalcemia, improved with IV zoledronic a veronica and hydration. Was tentatively planned to start systemic combination chemoimmunotherapy with Bendamustine Rituxan on January 25, 2025 as outpatient but ended up being hospitalized January 24 with increasing generalized edema and failure to thrive. Patient noted to have worsening pancytopenia, lactic acidosis, hyperuricemia (was started on oral allopurinol January 24, 2025 for tumor lysis prophylaxis in preparation for systemic therapy) Plan: 1. Supportive therapy to include IV fluid hydration and controlled diuresis starting today January 25, 2025 to prevent tumor lysis once she started systemic therapy now scheduled January 26, 2025. Most of her anasarca secondary to her malignant lymphoma with malignant obstruction to normal tissue fluid/lymph flow rather than extravascular fluid overload. I do not expect appreciable improvement in anasarca until she receives treatment and shows a response in the upcoming several weeks. Advise IV fluid hydration with diuresis to maintain input and output until later in the day of Thanksgiving January 26, 2025 if there is no evidence of worsening tumor lysis. I did warn the patient that edema may worsen during the vigorous hydration phase but is essential to prevent serious potentially life-threatening tumor lysis. 2. Cycle 1 of systemic chemoimmunotherapy will now rescheduled to start January 26, 2025 . 3. Continue allopurinol 300 mg daily, check serum uric acid every morning in the upcoming 2 days. If uric acid trends upwards we will have to use IV rasburicase. 4. Supportive transfusion with packed red blood cells to maintain hemoglobin at or above 8 g per DL. 5. Patient will need to start growth factor support 24-48 hours following c onclusion of her chemotherapy that is expected January 27. If the patient were to be able to be discharged with family support, she was instructed to come to the outpatient cancer center Saturday for long-acting outpatient growth factor injection that has already been authorized by insurance. If she is not able to be discharged and will need rehab, Granix 300 mcg subcu daily for 10 days to start Saturday is the alternative for inpatient/inpatient rehab. Patient was seen with multiple family members at the bedside. Impression and plan discussed. Ten Nogueira MD Fisher Eel Spear, [facility] Divisions of Medical Oncology & Hematology Department of Internal Medicine [place] [id number] This note was generated using a voice recognition system software. Although it was reviewed by the author prior to finalization, it may still contain incorrect words, spelling, and punctuation that were not noted when reviewing prior to saving. If a clinically significant typo or inaccurately typed phrase is noted, please notify the author. (2) Pancytopenia: Status: Acute Code(s): D61.818 - Other pancytopenia (3) Acidosis, lactic: Status: Acute Code(s): E87.20 - Acidosis, unspecified (4) Adult failure to thrive: Status: Acute Code(s): R62.7 - Adult failure to thrive (5) Hyperuricemia: Status: Acute Code(s): E79.0 - Hyperuricemia without signs of inflammatory arthritis and tophaceous disease HPI Consult Data Date of Service:: 01/25/25 PCP / Referring Provider: Vidal Ling, [facility] Attending: Dr. Godfrey Calles MD Chief Complaint Chief Complaint: Increasing edema and failure to thrive History of Present Illness History of Present Illness: 69-year-old female who presents with a few months history of increasing abdominal distention and left lower quadrant discomfort. She has been a smoker since her teenage, no excess alcohol. She has not had any persistent fevers or drenching night sweats. She underwent blood work that suggested possible celiac disease and was placed on a gluten- free diet and this is when she lost weight. August 25, 2024 CT abdomen and pelvis with contrast showed massive splenomegaly, fatty liver, bilateral inguinal lymph nodes but no other pathologically enlarged lymph nodes in the abdomen and pelvis, heterogeneous enhancement of both kidneys but no masses and nonobstructing renal stones within the right kidney. The remainder of abdominal solid organs and bowel appeared normal. In October 2024 she was seen by Dr. Bobby who performed an upper GI endoscopy with duodenal biopsies that showed no evidence for celiac disease and once the dietary restriction was lifted up she has been regaining the lost weight. December 16, 2024 MRI of the abdomen: Gross splenomegaly, was a small wedge- shaped area of enhancement suggestive of a splenic infarct, liver was unremarkable, upper abdominal adenopathy at the hilum of the spleen, left para- aortic space. Kaila hepatis adenopathy was estimated to be 2.6 cm in axis. December 27, 2024 left groin lymph node core biopsy: CD5 positive B-cell lymphoma with BCL1 expression consistent with mantle cell lymphoma, p53 wild type. January 19, 2025 PET/CT: IMPRESSION: FDG avid- 1. Severe splenomegaly, with increased uptake throughout, consistent with the history of lymphoma. 2. Extensive axial and appendicular skeletal uptake, consistent with lymphomatous involvement. 3. A hypermetabolic irregularly-shaped elongated bilateral retroperitoneal mass extends superiorly into the right abdomen, concerning for the effusive presence of malignant adenopathy. 4. Extensive hypermetabolic lymph nodes as noted. Other: Moderate ascites. Diminutive left kidney, with possible absence of (versus markedly reduced) function. Moderate aortic calcification. No evidence of abdominal aortic aneurysm. Moderate bilateral pleural effusions. Advanced Directives Do you have a Healthcare Power of Short Goods Drier?: No [facility] Medical History Wears glasses Cancer History of renal disease Heartburn Gastric reflux Former smoker History of edema Hypokalemia Encounter for education 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 Depression Emphysema lung COPD (chronic obstructive pulmonary disease) Postmenopausal IBS (irritable bowel syndrome) Positive colorectal cancer screening using Cologuard test Anemia Acute distention of stomach Abdominal pain Hypertension Vitamin D deficiency Splenomegaly Home Medications ?Medication ?Instructions ?Recorded ?Last Taken ?Type cholecalciferol (vitamin D3) 1,250 1,250 mcg PO QMONTH [facility]ONE [facility] 11/26/24 01/19/25 History mcg (50,000 unit) capsule vitamin B complex 1 tab PO QDAY FOR ENERGY 01/19/25 History -mn [id number] 1 tab PO DAILY SUPPLEMEN T 12/07/24 01/19/25 History pantoprazole 40 mg tablet,delayed 40 mg PO DAILY STOMA CH 12/07/24 12/06/24 History release allopurinol 300 mg tablet 300 mg PO QDAY #7 tabs 01/14 Unknown Rx lidocaine-prilocaine 2.5 %-2.5 % 1 applic topical ONCE PRN port 01/14/25 Unknown Rx topical cream access 30 days #30 grams ondansetron 8 mg disintegrating 8 mg PO Q8H PRN nausea and 01/14/25 Unknown Rx tablet vomiting #30 tabs potassium chloride 20 mEq 20 meq PO DAILY #3 tabs 01/0201/19/25 Rx tablet,extended release(part/cryst) tramadol 50 mg tablet 50 mg PO Q6H PRN pain 2 days #5 01/21/25 Unknown Rx tabs Allergy/AdvReac Type Severity Reaction Status Date / Time moxifloxacin (From Avelox) Allergy Unknown unknown Verified 01/24/25 15:27 terbinafine Allergy Unknown rash Verified 01/24/25 15:27 Family History Father Alcohol abuse Mother Heart disease Depression Surgical History History of dental surgery Social History Smoking Status: Former smoker Tobacco: How many years used: 50 alcohol intake: never substance use type: does not use ROS Constitutional Constitutional: Reports fatigue and other Details: Patient reported initial weight loss despite preserved appetite and later on weight gain due to increasing edema ; Denies fever(s) or night sweats ENT HEENT: Denies dysphagia Cardiovascular Cardiovascular: Reports edema; Denies chest pain Respiratory/Chest Respiratory/Chest: Reports dyspnea on exertion Gastrointestinal Gastrointestinal: Denies change in bowel habits Genitourinary Genitourinary: Reports change in urinary stream, urinary frequency and other Details: Patient reports increasing frequency and volume of urine with diuresis Musculoskeletal Musculoskeletal: Denies back pain Integumentary Integumentary: Denies rash Neurologic Neurologic: Reports abnormal speech; Denies focal weakness Hematologic/Lymphatic Hematologic/Lymphatic: Denies lymphadenopathy Physical Exam Narrative ECOG 2 Const alert, oriented x3 and no apparent distress General Appearance: ill appearing Positive for chronically and frail HEENT normocephalic Eyes no scleral icterus Neck no lymphadenopathy and no JVD Lymph Lymphatic: lymphedema non-pitting Chest Chest Narrative: Port Resp Auscultation: diminished lung sounds bilateral lower Cardio regular rate and regular rhythm GI soft to palpation Extremity General Extremity: edema bilateral lower extremity Skin no rashes or lesions noted Neuro CN's II-XII intact bilaterally and moves all extremities Psych mental status grossly normal Vital Signs Temperature 98.4 F 01/25/25 08:00 Temperature Source Core 01/25/25 08:00 Pulse Rate 107 H 01/25/25 11:00 Pulse Strength Normal (2+) 01/25/25 10:00 Respiratory Rate 24 H 01/25/25 11:00 Respiratory Effort Normal 01/25/25 08:00 Respiratory Depth Normal 01/25/25 08:00 Respiratory Pattern Normal 01/25/25 08:00 Blood Pressure 114/58 L 01/25/25 11:00 Blood Pressure Mean 76 01/25/25 11:00 Blood Pressure Source Monitor 01/25/25 11:00 Blood Pressure Position Semi-Fowlers 01/25/25 11:00 Pulse Ox 92 01/25/25 11:00 Oxygen Delivery Method Room Air 01/25/25 11:00 Laboratory Results - last 24 hr 01/24/25 17:25: WBC 3.0 L, RBC 2.57 L, Hgb 8.2 L, Hct 27.1 L, MCV 105.4 H, MCH 31.9, MCHC 30.3 L, RDW Std Deviation 69.4 H, RDW Coeff of Jeffery 18.0 H, Plt Count 59 L, MPV 10.6, Immature Gran % (Auto) 1.000 H, Neut % (Auto) 64.8, Lymph % (Auto) 20.8, Jewell % (Auto) 12.1 H, Eos % (Auto) 0.3, Baso % (Auto) 1.0, Absolute Neuts (auto) 1.9 L, Absolute Lymphs (auto) 0.62 L, Nucleated RBC % 0, Platelet Estimate MOD DEC, Polychromasia 1+, Anisocytosis 1+, PT 16.2 H, INR 1.3, APTT 38.4 H, Sodium 144, Potassium 4.4, Chloride 103, Carbon Dioxide 21.8, Anion Gap 19 H, BUN 23 H, Creatinine 1.07, Estim Creat Clear Calc 45.55 L, Est GFR (MDRD) Non-Af 57 L, BUN/Creatinine Ratio 21.3 H, Glucose 83, Lactic Acid 10.7 H*, Calcium 9.3, Total Bilirubin 0.80, AST 70 H, ALT 30, Alkaline Phosphatase 216 H, Troponin T High Sens 21 H, NT pro BNP II 2369 H, Total Protein 5.2 L, Albumin 2.8 L, Globulin 2.3, Albumin/Globulin Ratio 1.2 01/24/25 20:17: Troponin T Hi Sens 2 Hr 18 H 01/24/25 21:29: Troponin T Hi Sens 4Hr 21 H 01/24/25 21:40: Lactic Acid 12.7 H* 01/25/25 02:09: Lactic Acid 11.9 H* 01/25/25 05:40: WBC 2.8 L, RBC 2.18 L, Hgb 7.1 L, Hct 23.1 L, MCV 106.0 H, MCH 32.6 H, MCHC 30.7 L, RDW Std Deviation 69.9 H, RDW Coeff of Jeffery 18.0 H, Plt Count 62 L, MPV 10.6, Immature Gran % (Auto) 1.400 H, Neut % (Auto) 60.9, Lymph % (Auto) 24.4, Jewell % (Auto) 11.5 H, Eos % (Auto) 0.4, Baso % (Auto) 1.4 H, Absolute Neuts (auto) 1.7 L, Absolute Lymphs (auto) 0.68 L, Nucleated RBC % 0, Platelet Estimate MOD DEC, Sodium 142, Potassium 4.2, Chloride 100, Carbon Dioxide 21.7, Anion Gap 20 H, BUN 22 H, Creatinine 1.03, Estim Creat Clear Calc 45.47 L, Est GFR (MDRD) Non-Af 59 L, BUN/Creatinine Ratio 21.2 H, Glucose 77, Uric Acid 9.3 H, Calcium 8.9, Total Bilirubin 0.63, AST 64 H, ALT 26, Alkaline Phosphatase 192 H, Lactate Dehydrogenase 462 H, Total Protein 4.6 L, Albumin 2.6 L, Globulin 2.0 L, Albumin/Globulin Ratio 1.3 01/25/25 08:00: Blood Type O POSITIVE, Antibody Screen NEGATIVE 01/25/25 11:15: Urine Color Yellow, Urine Clarity Sl. Cloudy, Urine pH 6.0, Ur Specific Tower 1.010, Urine Protein 15 H, Urine Glucose (UA) Normal, Urine Ketones Negative, Urine Occult Blood 150 H, Urine Nitrite Negative, Urine Bilirubin Negative, Urine Urobilinogen 1 H, Ur Leukocyte Esterase 100 H, Urine RBC 0-5 SEEN, Urine WBC 0-5 SEEN, Ur Squamous Epith Cells 0-5 SEEN, Calcium Oxalate Crystal 1+, Urine Bacteria 0 SEEN, Urine Mucus 0 SEEN Microbiology 01/25/25 11:15 Stool Stool Occult Blood ([facility]) - Final Occult Blood Positive Diagnostic Data Chest X-Ray 01/24/25 17:41 IMPRESSION: Pulmonary findings as above. Reading Location: [address] Chest/Abdomen/Pelvis CTA 01/24/25 18:35 IMPRESSION: 1. Generalized fluid overload/third-spacing with moderate bilateral pleural effusions, moderate-large volume abdominopelvic ascites, and diffuse subcutaneous edema. 2. Marked splenomegaly. Diffuse retroperitoneal lymphadenopathy, and enlarged inguinal lymph nodes. Nonspecific subcentimeter mediastinal/hilar and axillary nodes, all of which were shown to be hypermetabolic on recent PET-CT, likely related to known mantle cell lymphoma. 3. Mild right hydronephrosis without any discrete obstructing mass or ureteral stone visualized. Few subcentimeter nonobstructive right renal stones. Reading Location: [facility]
--- NOTE | 2025-01-25 12:39 | CON.PCM.PA_ITS ---
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 Depression Emphysema lung COPD (chronic obstructive pulmonary disease) Postmenopausal IBS (irritable bowel syndrome) Positive colorectal cancer screening using Cologuard test Anemia Acute distention of stomach Abdominal pain Hypertension Vitamin D deficiency Splenomegaly Home Medications ?Medication ?Instructions ?Recorded ?Last Taken ?Type cholecalciferol (vitamin D3) 1,250 1,250 mcg PO QMONTH [facility] 11/26/24 01/19/25 History mcg (50,000 unit) capsule vitamin B complex 1 tab PO QDAY FOR ENERGY 01/19/25 History mv-mn [id number] 1 tab PO DAILY SUPPLEMEN T 12/07/24 01/19/25 History pantoprazole 40 mg tablet,delayed 40 mg PO DAILY STOMA CH 12/07/24 12/06/24 History release allopurinol 300 mg tablet 300 mg PO QDAY #7 tabs 01/14 Unknown Rx lidocaine-prilocaine 2.5 %-2.5 % 1 applic topical ONCE PRN port 01/14/25 Unknown Rx topical cream access 30 days #30 grams ondansetron 8 mg disintegrating 8 mg PO Q8H PRN nausea and 01/14/25 Unknown Rx tablet vomiting #30 tabs potassium chloride 20 mEq 20 meq PO DAILY #3 tabs 01/0201/19/25 Rx tablet,extended release(part/cryst) tramadol 50 mg tablet 50 mg PO Q6H PRN pain 2 days #5 01/21/25 Unknown Rx tabs Allergy/AdvReac Type Severity Reaction Status Date / Time moxifloxacin (From Avelox) Allergy Unknown unknown Verified 01/24/25 15:27 terbinafine Allergy Unknown rash Verified 01/24/25 15:27 Family History Father Alcohol abuse Mother Heart disease Depression Surgical History History of dental surgery Social History Smoking Status: Former smoker Tobacco: How many years used: 50 alcohol intake: never substance use type: does not use ROS Constitutional Constitutional: Reports body ache(s), change in weight, fatigue, malaise, poor appetite, weakness and weight gain Eyes Eyes: Reports systems reviewed and no addt'l complaints, except as documented ENT HEENT: Reports systems reviewed and no addt'l complaints, except as documented Cardiovascular Cardiovascular: Reports dyspnea and leg edema Respiratory/Chest Respiratory/Chest: Reports dyspnea and dyspnea on exertion Gastrointestinal Gastrointestinal: Reports as per HPI Genitourinary Genitourinary: Reports as per HPI Musculoskeletal Musculoskeletal: Reports as per HPI Integumentary Integumentary: Reports as per HPI Neurologic Neurologic: Reports systems reviewed and no addt'l complaints, except as documented Psychiatric Psychiatric: Reports depression Endocrine Endocrinology: Reports as per HPI Hematologic/Lymphatic Hematologic/Lymphatic: Reports as per HPI Allergic/Immunologic Allergic/Immunologic: Reports systems reviewed and no addt'l complaints, except as documented Physical Exam Const alert and oriented x3 General Appearance: cooperative HEENT normocephalic Eyes PERRL Neck General: trachea midline Lymph Lymphatic: lymphedema Resp Effort and Inspection: tachypneic Auscultation: diminished lung sounds Cardio regular rate Rhythm: abnormal rhythm GI Inspection: abdominal distention Extremity no calf tenderness Peripheral Pulses: Yes pulses 2+ throughout Skin no rashes or lesions noted Neuro CN's II-XII intact bilaterally Neuro Narrative: Weakness Motor Exam: general weakness Psych affect normal Mood & Affect: depressed Charges/Coding Palliative Care Palliative Care: [id number] New Pt Consult 80+ min HPI Current admission Current Code Status: Full code Associated Diagnosis: Lymphoma, lactic acidosis, hyponatremia Consult Data Date of Consult: 01/25/25 Location of consult: ICU Reason for referral: Goals of care and CODE STATUS discussion Referral source: Dr. Rubin Palliative care diagnosis (Summary list): Lymphoma Palliative care services/treatment (Accepted, as consult): Accepted Case discussed with referring provider: Patient goals of care, CODE STATUS discussion HPI Narrative HPI Narrative: PAIN ASSESSMENT currently denies Prior to meeting with the patient and family at bedside I reviewed labs, radiological studies, extensive documentation from both this hospitalization and oncology notes. I then met with the patient and her family at bedside. I introduced myself and the concept of palliative care in which they voluntarily excepted our services. I then met with Kerry and her daughter at bedside. There was 1 granddaughter at bedside at the time of my initial introduction. Kerry's daughter then said that there was a large family and that they were in the waiting room. I then stated that people could come back into the room if they were interested in being here for goals of care conversations. They were then 3 young children and a son that came into the room. I then began discussing Kerry's overall clinical picture to begin having goals of care conversations with her and her family. I did note the young children to begin crying and asked that the parents evaluate whether they would like them to continue to be in the room for continued goals of care conversations or if they felt that they should be escorted back to the waiting in, and that it was their choice. The daughter then escorted the children back to the waiting room. Once the children are out of the room and the daughter was back, I began having a goals of care conversation based on the patient's current presentation as well as potentials for the inability to tolerate chemo, which is currently being evaluated. I did note that the patient's daughter was beginning to get angry and stated I am very pissed off, why was this not caught sooner? I explained to the daughter that I was not part of the initial team that was caring for her but that sometimes symptoms are vague and they rule out other possibilities before they are able to do more aggressive labs and radiological studies. Kerry wanted to know why they were doing certain tests now and not happen sooner. I did explain to them that often times, insurance companies require certain things to be done first before other things can be completed.. She stated understanding. We then discussed chemotherapy and the benefits versus burdens and what she may have to expect going forward. I did explain that if she chose not to do chemotherapy another alternative would be comfort focused care and hospice. The patient's daughter then became very angry and told me to not bring up the H words again. I did explain to the daughter that it is important that they have all of the information needed to make the most educated decisions going forward. She then stated I know that but I do not want you to see that 1 again. I did agree that I would not bring up hospice any longer. Kerry expressed frustration over the conflicting information that she has been receiving stating that 1 person will tell me 1 thing and then another person will tell me another. 1 doctor told me I should get chemotherapy and then another doctor told me I should not get chemotherapy. I did explain to her that my role was to present the information so that she could make informed decisions going forward. She did state understanding and was appreciative. Per family request, I did review patient's labs compared to previous labs. She does have slightly worsened WBCs today as well as hemoglobin. The patient does state that she is feeling slightly better today than she did yesterday. I did encourage her to concentrate on how she is feeling versus what the numbers look like right now. Lastly, given the patient's diagnosis, we did discuss her CODE STATUS. I did explain the benefits versus burdens of CPR and intubation versus being a full code. Kerry did not feel capable of making any decisions today but I did encourage her to speak with her family about her CODE STATUS so that they know what her wishes are going forward should anything happen. She stated understanding. As of right now, the plan is for the patient to be evaluated for chemotherapy to see if she could withstand it tomorrow. All questions were answered. Patient remains full code. Per hospitalist: ESTELLA MIRELES, is a 69 F who presented to [facility] ED on 01/24/2025 with progressive weakness and volume overload. Patient was recently diagnosed with B-cell/mantle cell lymphoma and established with Oncology here. She had chemotherapy port placed and plan was to begin chemotherapy tomorrow. Unfortunately she has had worsening weakness with weight gain over the past several days and has been unable to care for self at home, so family brought her in for further evaluation. In the ED she was normotensive and hemodynamically stable on room air at rest. Labs notable for hemoglobin 8.2, WBC count 3.0, platelet count 59, INR 1.3, lactic acid 10.7. BNP 2369. LFTs stable from previous. CT chest abdomen pelvis showed generalized fluid overload/third spacing with moderate bilateral pleural effusions, moderate to large ascites, marked splenomegaly with diffuse retroperitoneal lymphadenopathy, and mild right hydronephrosis with no discrete obstructing mass noted. Dr. Subramanian discussed case with Dr. Dan who noted the elevated lactic acid was likely due to poor clearance in setting of her lymphoma, and he noted patient could be admitted here for diuresis and further discussion regarding possible treatment options and goals of care. Dr. Subramanian broached goals of care with the patient and patient noted that she wished to be full code and be aggressive with her care. Hospitalist was then contacted for admission. I saw the patient at bedside in the ED, son and daughter were present. Patient was fatigued and thin appearing, was otherwise sitting back fairly comfortably in bed and conversing normally. She denied any acute pain or discomfort. Noted that she was feeling hungry as she had not eaten much since yesterday evening. She did have significant urine output with 1 dose of IV Lasix thus far. I noted to her and family that we are very concerned about her overall prognosis, and I am unsure if she will be a candidate for chemotherapy at this time. However, oncology will be seeing her tomorrow morning to discuss this with her further. Will be admitted for further management. Palliative Assessment Advanced Directive - Current Admission Advance Directive: Advance Directive ON ADMISSION - REFERENCE 3 Do you have a Healthcare No 01/25/25 00:30 Living Will? Do you have a Healthcare Power No 01/25/25 00:30 of Electromedical Service Engineer? Do You Want Additional Yes 01/25/25 00:30 Information on Advanced Directives or Healthcare Proxy/DPOA comments: Patient has no legal POA but has a son and daughter Psychosocial/Spiritual Information Living situation/Marital status: Patient lives alone and is Geographic location: [place] Supports: Extensive family Adventist/Nalini or spiritual preference: No christianity preference Prior functional status: Prior to hospitalization she was able to do all of her own ADLs. Assistive devices at home: She does have a walker at home Cultrual issues: Patient has a large family and multiple grandchildren Information about the patient as a person: Patient states that her children and grandchildren are her world. Symptoms Palliative performance scale: Currently 30% Palliative prognostic index: 9.5 if the PPI is greater than 6.0, survival is less than 3 weeks. Dyspnea symptoms: Severe Nausea symptoms: None Vomiting symptoms: None Depression symptoms: Moderate Anorexia symptoms: Severe Fatigue symptoms: Severe Weakness symptoms: Severe Confusion symptoms: None Objective Data Objective Data Vital Signs: Vital Signs Temp Pulse Resp BP Pulse Ox O2 Del Method 98.4 F 107 H 24 H 114/58 L 92 Room Air 01/25/25 08:00 01/25/25 11:00 01/25/25 11:00 01/25/25 11:00 01/25/25 11:00 01/25/25 11:00 Oxygen Delivery Method Room Air Weight: 121 lb 7.595 oz Body Mass Index (BMI) 19.1 Intake & Output: Intake and Output for Last 24 Hours 01/23/25 01/24/25 01/25/25 23:59 23:59 23:59 Intake Total 1080 / 1080 Output Total 750 / 750 Balance 330 / 330 Lab / Micro Data Attestation: I reviewed the patient's lab results. Lab results narrative: Patient's WBCs are 2.8 today whereas they were 3.0 yesterday, hemoglobin is 7.1 where it was 8.2 yesterday, platelets are currently 62, BUN is elevated 22, GFR is decreased at 59, lactic acid is 11.9 which is slightly better than yesterday, AST continues to be elevated at 64 as well as alkaline phos at 192. BNP is 2369. 01/25/25 05:40 01/25/25 05:40 Labs: Laboratory Results - last 24 hr 01/24/25 17:25: WBC 3.0 L, RBC 2.57 L, Hgb 8.2 L, Hct 27.1 L, MCV 105.4 H, MCH 31.9, MCHC 30.3 L, RDW Std Deviation 69.4 H, RDW Coeff of Jeffery 18.0 H, Plt Count 59 L, MPV 10.6, Immature Gran % (Auto) 1.000 H, Neut % (Auto) 64.8, Lymph % (Auto) 20.8, Hale % (Auto) 12.1 H, Eos % (Auto) 0.3, Baso % (Auto) 1.0, Absolute Neuts (auto) 1.9 L, Absolute Lymphs (auto) 0.62 L, Nucleated RBC % 0, Platelet Estimate MOD DEC, Polychromasia 1+, Anisocytosis 1+, PT 16.2 H, INR 1.3, APTT 38.4 H, Sodium 144, Potassium 4.4, Chloride 103, Carbon Dioxide 21.8, Anion Gap 19 H, BUN 23 H, Creatinine 1.07, Estim Creat Clear Calc 45.55 L, Est GFR (MDRD) Non-Af 57 L, BUN/Creatinine Ratio 21.3 H, Glucose 83, Lactic Acid 10.7 H*, Calcium 9.3, Total Bilirubin 0.80, AST 70 H, ALT 30, Alkaline Phosphatase 216 H, Troponin T High Sens 21 H, NT pro BNP II 2369 H, Total Protein 5.2 L, Albumin 2.8 L, Globulin 2.3, Albumin/Globulin Ratio 1.2 01/24/25 20:17: Troponin T Hi Sens 2 Hr 18 H 01/24/25 21:29: Troponin T Hi Sens 4Hr 21 H 01/24/25 21:40: Lactic Acid 12.7 H* 01/25/25 02:09: Lactic Acid 11.9 H* 01/25/25 05:40: WBC 2.8 L, RBC 2.18 L, Hgb 7.1 L, Hct 23.1 L, MCV 106.0 H, MCH 32.6 H, MCHC 30.7 L, RDW Std Deviation 69.9 H, RDW Coeff of Jeffery 18.0 H, Plt Count 62 L, MPV 10.6, Immature Gran % (Auto) 1.400 H, Neut % (Auto) 60.9, Lymph % (Auto) 24.4, Hale % (Auto) 11.5 H, Eos % (Auto) 0.4, Baso % (Auto) 1.4 H, A bsolute Neuts (auto) 1.7 L, Absolute Lymphs (auto) 0.68 L, Nucleated RBC % 0, Platelet Estimate MOD DEC, Sodium 142, Potassium 4.2, Chloride 100, Carbon Dioxide 21.7, Anion Gap 20 H, BUN 22 H, Creatinine 1.03, Estim Creat Clear Calc 45.47 L, Est GFR (MDRD) Non-Af 59 L, BUN/Creatinine Ratio 21.2 H, Glucose 77, U kan Acid 9.3 H, Calcium 8.9, Total Bilirubin 0.63, AST 64 H, ALT 26, Alkaline Phosphatase 192 H, Lactate Dehydrogenase 462 H, Total Protein 4.6 L, Albumin 2.6 L, Globulin 2.0 L, Albumin/Globulin Ratio 1.3 01/25/25 08:00: Blood Type O POSITIVE, Antibody Screen NEGATIVE 01/25/25 11:15: Urine Color Yellow, Urine Clarity Sl. Cloudy, Urine pH 6.0, Ur Specific Red Level 1.010, Urine Protein 15 H, Urine Glucose (UA) Normal, Urine Ketones Negative, Urine Occult Blood 150 H, Urine Nitrite Negative, Urine Bilirubin Negative, Urine Urobilinogen 1 H, Ur Leukocyte Esterase 100 H, Urine RBC 0-5 SEEN, Urine WBC 0-5 SEEN, Ur Squamous Epith Cells 0-5 SEEN, Calcium Oxalate Crystal 1+, Urine Bacteria 0 SEEN, Urine Mucus 0 SEEN Micro: Microbiology 01/25/25 11:15 Stool Stool Occult Blood ([facility]) - Final Occult Blood Positive Radiography Diagnostic Testing: Radiology Impression Chest X-Ray 01/24/25 17:41 IMPRESSION: Pulmonary findings as above. Reading Location: [address] Chest/Abdomen/Pelvis CTA 01/24/25 18:35 IMPRESSION: 1. Generalized fluid overload/third-spacing with moderate bilateral pleural effusions, moderate-large volume abdominopelvic ascites, and diffuse subcutaneous edema. 2. Marked splenomegaly. Diffuse retroperitoneal lymphadenopathy, and enlarged inguinal lymph nodes. Nonspecific subcentimeter mediastinal/hilar and axillary nodes, all of which were shown to be hypermetabolic on recent PET-CT, likely related to known mantle cell lymphoma. 3. Mild right hydronephrosis without any discrete obstructing mass or ureteral stone visualized. Few subcentimeter nonobstructive right renal stones. Reading Location: [facility] Rhythm Strip Rhythm Strip: A-fib Rate: 108 Ectopy: - (Patient appears to be in atrial fibrillation on the monitor at bedside. Heart rate is between 98-1 14.) Impressions & Recommendations Patient & Family Issues discussed with the patient and family: Goals of care going forward and CODE STATUS Patient goal: Patient was unsure of what her goals are Family goal: Family was unwilling to currently participate in a goals of care conversation. Ethical & Legal Ethical and legal: Patient has no legal POA Impressions Impressions: Patient's prognosis is very guarded/poor Recommentation Palliative recommendations: Patient would benefit for hospice, if she so chooses. Awaiting assessment to see if the patient is a candidate for chemotherapy. Encouter Achieved as a result of this Palliative Care Encounter: [[id number], [id number] ] minutes were spent in total for this visit which consisted, primarily of counseling and education dealing with the complex and emotionally intense issues of symptom management and palliative care in the setting of serious and potentially life-threatening illness. Review of documentation, labs and radiological studies. ?Patient/family had the opportunity to ask questions Plan (1) Shock: (2) Acidosis, lactic: (3) Lymphedema of both lower extremities: (4) Tachycardia: (5) Adult failure to thrive: (6) Signs and symptoms of anemia: (7) Symptomatic anemia: (8) Pancytopenia: (9) Mantle cell lymphoma: QUALIFIERS: Lymphoma site: multiple regions Qualified Code(s): C 83.18 - Mantle cell lymphoma, lymph nodes of multiple sites (10) Humoral hypercalcemia of malignancy: (11) Goals of care, counseling/discussion: (12) Palliative care encounter: PLAN: Plan *Goals of care discussion with no pertinent outcome *CODE STATUS discussion. Patient remains full code at this time *Provided information about current medical status with an attempt to have goals of care conversation that was unsuccessful. *Provided information about options going forward *I do feel that the patient and her family are in various stages of grieving. Currently denial/anger. *Encouraged the patient to have conversations with her oncology team about her current status.
[2025-01-25 14:52] LABS: Uric Acid 8.8 mg/dL (2.6-6.0)
[2025-01-25 15:04] LABS: LDH 477 U/L (84-246)
[2025-01-25] MEDS: 0.9% Normal Saline (1000mL) 1,000 ML 100 ML IV (17:23)
--- NOTE | 2025-01-25 20:31 | CASEMGMT ---
Social work ICU staff contacted this ED FERDINAND solomon to see about witnessing advance directive completion for this patient. SW asked if patient was alert and oriented and nursing noted zero issues with patient's mentation. SW entered patient's room, introducing self and role at [facility]. Patient thanked SW for coming and introduced patient's daughter, Yael, and son in law, Godfrey, who were at bedside. Patient's family had the documents filled out and SW went over each page, confirming with patient that patient wanted above individuals to make medical decisions on patient's behalf should patient not be able to do so. Patient confirmed and SW signed with an CLINICAL FACULTY witnessing as well. Patient's primary HCPOA is daughter, Yael Moulton. Patient's secondary HCPOA is son in Godfrey kern. SW copied and provided documents to patient and HCPOAs, as well as added copy to chart. Ashley Osorio, CONTRACT CLERK [employer], ENGLISH DIVISION CHAIR
[2025-01-26] VITALS (39 sets, daily range): BP systolic 88–124; BP diastolic 54–111; PULSE 81–139; RESP 16–24; TEMP 36.6–37.7; O2SAT 87–100; BMI 19.1
[2025-01-26] MEDS: 0.9% Normal Saline (1000mL) 1,000 ML 100 ML IV ×2 (03:26→21:56)
[2025-01-26] MEDS: Piperacil/Tazobactam 3.375 GM in 0.9% Normal Saline (50mL MB+) 50 ML IV ×2 (04:59→21:13)
[2025-01-26] MEDS: 0.9% Saline Lock 10 ML Syringe IV ×3 (05:01→20:32)
[2025-01-26 05:21] LABS: Hematocrit 21.6 % (37-47); Hemoglobin 6.6 g/dL (12.0-15.0); Immature Granulocytes Count 0.020 X10^3/uL (0.0-0.0); Mean Corp Hgb Conc 30.6 g/dL (32-36); Mean Corpuscular Volume 106.9 fL (81-99); Mean Platelet Vol. 10.4 fl (6.2-12.0); NRBC Flagged by Analyzer 0 % (0-5); POSITIVE COUNT YES; POSITIVE DIFFERENTIAL YES; POSITIVE MORPHOLOGY YES; Platelet Count 57 K/mm3 (150-450); RBC Distribution Width CV 18.0 % (11.6-14.6); RBC Distribution Width SD 70.2 fl (35.1-43.9); Red Blood Count 2.02 M/mm3 (4.2-5.4); White Blood Count 2.5 K/mm3 (4.4-11.0)
[2025-01-26 05:23] LABS: Differential Indicated SCAN CRITERIA MET
[2025-01-26 05:56] LABS: Anisocytosis 2+; Differential Comment SCANNED
[2025-01-26 06:41] LABS: AST(SGOT) 59 U/L (<=31); Alanine Aminotransfer ALT/SGPT 24 U/L (<=34); Albumin, Serum 2.4 g/dL (3.4-4.8); Alkaline Phosphatase 170 U/L (35-104); Anion Gap 22 (5-15); BUN 21 mg/dL (4-19); BUN/Creat Ratio 20.4 RATIO (10-20); Bilirubin, Direct 0.35 mg/dL (0.00-0.30); Calcium,Total 8.6 mg/dL (7.6-11.0); Carbon Dioxide 19.9 mmol/L (21.0-32.0); Chloride 102 mmol/L (98-108); Estimated Creatinine Clearance 45.28 ml/min (50-250); Globulin 1.9 g/dL (2.2-4.2); Glucose 73 mg/dL (70-99); Magnesium 2.1 mg/dL (1.5-2.2); Potassium 3.7 mmol/L (3.3-5.1)
[2025-01-26 06:53] LABS: LDH 456 U/L (84-246)
--- NOTE | 2025-01-26 07:18 | PN.CC_ITS ---
Assessment & Plan Assessment/Plan (1) Acidosis, lactic: PLAN: Plan RECOMMENDATIONS: 1. Continue to wean supplemental oxygen to maintain saturations at or above 90%. 2. Transfuse blood products as ordered. Check H&H posttransfusion. 3. Continue PPI therapy as ordered. 4. Continue empiric antimicrobials pending culture results. 5. Tentative plans to initiate chemotherapy today. IMPRESSIONS: 1. Lactic acidosis Most likely secondary to underlying active malignant process. I do not feel that the patient is in a shock state as her hemodynamic status has been stable and end organ perfusion appears intact, as evidenced by normal creatinine and renal function. No discernible source of infection has yet to be identified. However, we will plan to continue the patient on antibiotics until culture results are known. In the interim, we will continue gentle IV fluid hydration over concerns for tumor lysis, in the setting of her known malignancy and plans to initiate chemotherapy today. 2. Newly diagnosed mantle cell lymphoma Oncology and palliative care medicine are following to assist with medical management and to facilitate goals of care discussion. 3. Anemia The patient has chronic anemia which has worsened over the course of this hospitalization. In light of her hemoglobin this morning, we will plan to transfuse blood products. Recommend checking H&H posttransfusion. Will continue PPI therapy. If anemia persists, will consult gastroenterology. 4. History of GERD/prior tobacco dependency in remission/generalized weakness with malnutrition Complicates care, management, recovery and prognosis. Continue supportive measures as noted above. PT/OT to work with the patient. This note was generated with [employer] dictation software. It may contain incorrect words, spelling, and punctuation that were not noted in checking the note before signing. Subjective Subjective The patient was seen and examined at the bedside this morning. Events from the last 24 hours have been reviewed. The patient is currently afebrile, hemodynamically stable and maintaining appropriate oxygen saturations on 3 L/min via nasal cannula. The patient remains pancytopenic with a hemoglobin currently noted to be 6.6 g/dL. Creatinine is stable at 1.04. Objective Data Objective Data The patient's most recent lab work, culture data and imaging studies have all been personally reviewed. Blood and urine cultures are pending. Stool for occult blood was positive. Vital Signs: Vital Signs Temp Pulse Resp BP Pulse Ox O2 Del Method O2 Flow Rate 97.8 F 84 20 H 99/54 L 99 Nasal Cannula 3 01/26/25 04:00 01/26/25 07:00 01/26/25 07:00 01/26/25 07:00 01/26/25 07:00 01/26/25 07:00 01/26/25 07:00 Oxygen Flow Rate (L/min) 3 Oxygen Delivery Method Nasal Cannula Weight: 122 lb 2.177 oz Body Mass Index (BMI) 19.1 Intake & Output: Intake and Output for Last 24 Hours 01/24/25 01/25/25 01/26/25 23:59 23:59 23:59 Intake Total 1999 1170 / 1170 Output Total 750 / 950 275 / 275 Balance 1250 / 1050 895 / 895 Lab / Micro Data Attestation: I reviewed the patient's lab results. 01/26/25 05:10 01/26/25 05:10 Labs: Laboratory Results - last 24 hr 01/25/25 05:40: Uric Acid 9.3 H, Lactate Dehydrogenase 462 H 01/25/25 08:00: Blood Type O POSITIVE, Antibody Screen NEGATIVE 01/25/25 11:15: Urine Color Yellow, Urine Clarity Sl. Cloudy, Urine pH 6.0, Ur Specific [employer] 1.010, Urine Protein 15 H, Urine Glucose (UA) Normal, Urine Ketones Negative, Urine Occult Blood 150 H, Urine Nitrite Negative, Urine Bilirubin Negative, Urine Urobilinogen 1 H, Ur Leukocyte Esterase 100 H, Urine RBC 0-5 SEEN, Urine WBC 0-5 SEEN, Ur Squamous Epith Cells 0-5 SEEN, Calcium Oxalate Crystal 1+, Urine Bacteria 0 SEEN, Urine Mucus 0 SEEN 01/25/25 13:50: Uric Acid 8.8 H, Lactate Dehydrogenase 477 H 01/25/25 13:50: Lactate Dehydrogenase Cancelled 01/26/25 05:10: WBC 2.5 L, RBC 2.02 L, Hgb 6.6 L, Hct 21.6 L, MCV 106.9 H, MCH 32.7 H, MCHC 30.6 L, RDW Std Deviation 70.2 H, RDW Coeff of Jeffery 18.0 H, Plt Count 57 L, MPV 10.4, Immature Gran % (Auto) 0.800, Neut % (Auto) 60.1, Lymph % (Auto) 21.4, [place] % (Auto) 14.9 H, Eos % (Auto) 1.2, Baso % (Auto) 1.6 H, A bsolute Neuts (auto) 1.5 L, Absolute Lymphs (auto) 0.53 L, Nucleated RBC % 0, Differential Comment SCANNED, Platelet Estimate MKD DEC, Anisocytosis 2+, Sodium 144, Potassium 3.7, Chloride 102, Carbon Dioxide 19.9 L, Anion Gap 22 H, BUN 21 H, Creatinine 1.04, Estim Creat Clear Calc 45.28 L, Est GFR (MDRD) Non-Af 59 L, BUN/Creatinine Ratio 20.4 H, Glucose 73, Calcium 8.6, Phosphorus 2.9, Magnesium 2.1, Total Bilirubin 0.59, Direct Bilirubin 0.35 H, AST 59 H, ALT 24, Alkaline Phosphatase 170 H, Lactate Dehydrogenase 456 H, Total Protein 4.3 L, Albumin 2.4 L, Globulin 1.9 L Micro: Microbiology 01/25/25 11:15 Stool Stool Occult Blood ([facility]) - Final Occult Blood Positive Radiography Diagnostic Testing: Radiology Impression Echocardiogram 01/25/25 07:09 Interpretation Summary Normal LV size. The left ventricular ejection fraction is 65 %. Stage 1 diastolic dysfunction. Structurally normal valves. Ordering Physician: Yovani Rubin Performed By: Shad Lord RCS Rhythm Strip Rhythm Strip: A-fib Rate: 108 Ectopy: - (Patient appears to be in atrial fibrillation on the monitor at bedside. Heart rate is between 98-1 14.) Physical Exam Const alert and no apparent distress General Appearance: cooperative and ill appearing HEENT normocephalic and head/scalp atraumatic Eyes PERRL, EOMs intact bilaterally and conjunctivae normal Neck supple General: trachea midline Chest inspection of chest normal Resp normal respiratory effort and no use of accessory muscles Effort and Inspection: able to speak in complete sentences Auscultation: diminished lung sounds Cardio regular rate and regular rhythm GI soft to palpation Inspection: anasarca present and abdominal distention Extremity General Extremity: edema; Negative for clubbing Skin no rashes or lesions noted Neuro CN's II-XII intact bilaterally, moves all extremities and no focal motor deficits Psych Mood & Affect: flat affect Charges/Coding Visit Charges Inpatient E&M: 45313 Subs Hosp L2
--- NOTE | 2025-01-26 07:22 | PN.HOSP_ITS ---
Reason for Visit Chief Complaint: Progressive weakness and volume overload Subjective Subjective Patient was started on IV fluid in anticipation of initiation of her chemo. Patient is also on allopurinol to prevent tumor lysis syndrome given the heavy burden of her tumor. Patient hemoglobin down to 6.6 and order was given for patient to be transfused with 1 unit PRBC Objective Data Objective Data Vital Signs: Vital Signs Temp Pulse Resp BP Pulse Ox O2 Del Method O2 Flow Rate 97.8 F 84 20 H 99/54 L 99 Nasal Cannula 3 01/26/25 04:00 01/26/25 07:00 01/26/25 07:00 01/26/25 07:00 01/26/25 07:00 01/26/25 07:00 01/26/25 07:00 Oxygen Flow Rate (L/min) 3 Oxygen Delivery Method Nasal Cannula Weight: 55.4 kg Body Mass Index (BMI) 19.1 Intake & Output: Intake and Output for Last 24 Hours 01/24/25 01/25/25 01/26/25 23:59 23:59 23:59 Intake Total 1999 / 1999 1170 / 1170 Output Total 750 / 950 275 / 275 Balance 1250 / 1050 895 / 895 Lab / Micro Data 01/26/25 05:10 01/26/25 05:10 Labs: Laboratory Results - last 24 hr 01/25/25 05:40: Uric Acid 9.3 H, Lactate Dehydrogenase 462 H 01/25/25 08:00: Blood Type O POSITIVE, Antibody Screen NEGATIVE 01/25/25 11:15: Urine Color Yellow, Urine Clarity Sl. Cloudy, Urine pH 6.0, Ur Specific [place] 1.010, Urine Protein 15 H, Urine Glucose (UA) Normal, Urine Ketones Negative, Urine Occult Blood 150 H, Urine Nitrite Negative, Urine Bilirubin Negative, Urine Urobilinogen 1 H, Ur Leukocyte Esterase 100 H, Urine RBC 0-5 SEEN, Urine WBC 0-5 SEEN, Ur Squamous Epith Cells 0-5 SEEN, Calcium Oxalate Crystal 1+, Urine Bacteria 0 SEEN, Urine Mucus 0 SEEN 01/25/25 13:50: Uric Acid 8.8 H, Lactate Dehydrogenase 477 H 01/25/25 13:50: Lactate Dehydrogenase Cancelled 01/26/25 05:10: WBC 2.5 L, RBC 2.02 L, Hgb 6.6 L, Hct 21.6 L, MCV 106.9 H, MCH 32.7 H, MCHC 30.6 L, RDW Std Deviation 70.2 H, RDW Coeff of Jeffery 18.0 H, Plt Count 57 L, MPV 10.4, Immature Gran % (Auto) 0.800, Neut % (Auto) 60.1, Lymph % (Auto) 21.4, [place] % (Auto) 14.9 H, Eos % (Auto) 1.2, Baso % (Auto) 1.6 H, A bsolute Neuts (auto) 1.5 L, Absolute Lymphs (auto) 0.53 L, Nucleated RBC % 0, Differential Comment SCANNED, Platelet Estimate MKD DEC, Anisocytosis 2+, Sodium 144, Potassium 3.7, Chloride 102, Carbon Dioxide 19.9 L, Anion Gap 22 H, BUN 21 H, Creatinine 1.04, Estim Creat Clear Calc 45.28 L, Est GFR (MDRD) Non-Af 59 L, BUN/Creatinine Ratio 20.4 H, Glucose 73, Calcium 8.6, Phosphorus 2.9, Magnesium 2.1, Total Bilirubin 0.59, Direct Bilirubin 0.35 H, AST 59 H, ALT 24, Alkaline Phosphatase 170 H, Lactate Dehydrogenase 456 H, Total Protein 4.3 L, Albumin 2.4 L, Globulin 1.9 L Micro: Microbiology 01/25/25 11:15 Stool Stool Occult Blood ([facility]) - Final Occult Blood Positive Radiography Diagnostic Testing: Radiology Impression Echocardiogram 01/25/25 07:09 Interpretation Summary Normal LV size. The left ventricular ejection fraction is 65 %. Stage 1 diastolic dysfunction. Structurally normal valves. Ordering Physician: Yovani Rubin Performed By: Shad Lord RCS Rhythm Strip Rhythm Strip: A-fib Rate: 108 Ectopy: - (Patient appears to be in atrial fibrillation on the monitor at bedside. Heart rate is between 98-1 14.) Physical Exam Narrative GENERAL: cooperative But frail looking HEENT: Atraumatic; normocephalic EYES; Anicteric, Normal Conjunctiva NECK; supple, normal thyroid, RESPIRATORY: Diminished to auscultation CARDIOVASCULAR: Regular S1 S2, GI: soft, normoactive bowel sounds, : No Renal angle tenderness; EXTREMITIES: Bilateral pedal edema no clubbing, MUSCULOSKELETAL: no muscle wasting NEURO: Awake; no lateralizing signs. SKIN: No Rash PSYCH; Flat affect Assessment & Plan Assessment/Plan (1) Adult failure to thrive: (2) Acidosis, lactic: (3) Pancytopenia: (4) Mantle cell lymphoma: QUALIFIERS: Lymphoma site: multiple regions Qualified Code(s): C 83.18 - Mantle cell lymphoma, lymph nodes of multiple sites PLAN: Plan Patient is a 69-year-old female with history of mantle cell lymphoma who presented with worsening weakness and volume overload. 1. Anasarca ? Related to patient significant tumor burden. Patient has been started on diuretic therapy however this was discontinued after discussion with both oncology as well as hand etcher given patient high risk for tumor lysis syndrome 2. Lactic acidosis ? Related to patient underlying malignancy patient symptoms not consistent with sepsis 3. Pancytopenia ? Malignancy related monitoring with daily CBC with differential ? 01/26/2025; with patient hemoglobin dropping to 6.6, an order was given for patient to be transfused 1 unit PRBC 4. Mantle cell lymphoma -Had port placed with plan to initiate chemotherapy with bendamustine/rituxin on 01/25. Has had worsening weakness and volume overload presumably secondary to her cancer. CT chest abdomen pelvis on admit showed known massive splenomegaly and known diffuse retroperitoneal lymphadenopathy with worsening moderate bilateral pleural effusions and diffuse ascites. Case was discussed with oncologist Dr. Nogueira patient started prophylactically on allopurinol to decrease her risk of tumor lysis syndrome. Plan is to initiate chemo in the hospital ? 01/26/2025;Patient was started on IV fluid in anticipation of initiation of her chemo. Patient is also on allopurinol to prevent tumor lysis syndrome given the heavy burden of her tumor 5. GERD ? Patient is on PPI 6. Humoral hypercalcemia of malignancy ? Patient calcium level on 12/22/2024 was 12.2 down to 8.5 with treatment 7. COPD ? Not in exacerbation aerosol treatment as needed 8. Vitamin D deficiency ? Patient is on cholecalciferol supplements q. monthly 9.DVT prophylaxis ? On enoxaparin Time spent in the patient's overall evaluation,decision-making process, review of diagnostic data, adjustment of management, discussion with other providers, nursing nursing and ancillary staff involved in patient's care documentation, 52 Minutes Charges/Coding Visit Charges Inpatient E&M: 28804 [facility] Hosp L3
[2025-01-26 09:35] LABS: Uric Acid 6.6 mg/dL (2.6-6.0)
[2025-01-26] MEDS: Pantoprazole Sodium 40 MG in 0.9% Normal Saline (100mL MB+) 100 ML 300 MG IV ×2 (09:37→20:28)
--- NOTE | 2025-01-26 11:22 | CASEMGMT ---
Social Work SW?to room to meet with patient for initial transition planning/care coordination?assessment.?SW?introduced self and role at [facility].? Pt voices understanding and consents to?assessment.? Pt is A/Ox4 and answers all questions appropriately. Pt's dgt Yael is present during assessment.?? Care providers, pharmacy, and demographics verified. PCP: Richard Ling, [facility] Specialists: Jero, oncology Preferred Pharmacy: [facility] Insurance: Cigna primary, Medicare A secondary Prescription Benefit:? Living Will/HPOA:? Yes. Pt has a living will and HCPOA on file naming pt's dgt Yael LNOK: Dgt and son in law Yael and Godfrey Moulton Living Arrangements: Pt lives alone in a mobile home with 5 steps to enter. Prior to a few days ago, pt was Independent in all ADLs and IADLs. 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 Transportation:?Pt drives. If pt is unable to drive at [place], pt's dgt states she can provide needed transportation. DME: ? Walker, raised toilet seat, shower chair, cane. Pt currently on oxygen, but does not have home oxygen. HHC/SNF: none previously Palliative Care/Hospice: When SW entered room, pt's dgt stated SW could stay if SW is not going to discuss sad things like yesterday. SW agreed not to speak about palliative care nor hospice with pt and dgt at this time. Emotional Support: Pt openly sharing with SW about usual independence and difficulty asking for help or relying on others. Pt and dgt talking briefly about health journey over past several months. Pt becoming tearful when talking about health situation and feelings surrounding this. Emotional support and validation of feelings provided to pt and dgt. After some discussion, pt politely asked SW to stop talking about health issues and leave the room as pt was getting overwhelmed. Pt and dgt were receptive to SW visit and request for space and time alone was appropriate. PLAN: DC plan is to be determined. Pt would like to return home alone and is open to home health care. However, pt states that prior to admission, her legs were not working and she had to crawl in her home. Pt is aware that she cannot return home if she is not able to use her legs. Dgt is considering taking pt to her house, but has concerns that she cannot care for pt if she cannot ambulate. Pt and dgt are open to short term rehab if needed. Pt to receive first dose of chemo today and is concerned about how she will respond to this. Discharge plans are pending pts progress during hospital course. SW/RNCM to continue to follow for dc planning and support. ILEANA Vo
[2025-01-26] MEDS: DiphenhydrAMINE 50 MG/ML Syringe IV (11:44)
--- NOTE | 2025-01-26 16:02 | ONC.PN.INPT ---
Subjective Subjective Fatigue, anorexia, increasing legs edema Physical Exam Narrative ECOG 3 Const alert and oriented x3 General Appearance: ill appearing Positive for chronically, frail and grossly edematous Vital Signs Temperature 98.3 F 01/26/25 15:12 Temperature Source Oral 01/26/25 15:12 Pulse Rate 99 01/26/25 15:12 Pulse Strength Normal (2+) 01/26/25 10:00 Respiratory Rate 20 H 01/26/25 15:12 Respiratory Effort Normal 01/26/25 12:00 Respiratory Depth Normal 01/26/25 12:00 Respiratory Pattern Normal 01/26/25 12:00 Blood Pressure 107/60 01/26/25 15:12 Blood Pressure Mean 75 01/26/25 15:12 Blood Pressure Source Monitor 01/26/25 15:12 Blood Pressure Position Semi-Fowlers 01/26/25 15:12 Blood Pressure Location Right Arm 01/26/25 15:12 Pulse Ox 99 01/26/25 15:12 Oxygen Delivery Method Nasal Cannula 01/26/25 15:12 Oxygen Flow Rate (L/min) 2 01/26/25 15:12 Laboratory Results - last 24 hr 01/25/25 08:00: Crossmatch See Detail 01/26/25 05:10: WBC 2.5 L, RBC 2.02 L, Hgb 6.6 L, Hct 21.6 L, MCV 106.9 H, MCH 32.7 H, MCHC 30.6 L, RDW Std Deviation 70.2 H, RDW Coeff of Jeffery 18.0 H, Plt Count 57 L, MPV 10.4, Immature Gran % (Auto) 0.800, Neut % (Auto) 60.1, Lymph % (Auto) 21.4, [place] % (Auto) 14.9 H, Eos % (Auto) 1.2, Baso % (Auto) 1.6 H, Absolute Neuts (auto) 1.5 L, Absolute Lymphs (auto) 0.53 L, Nucleated RBC % 0, Differential Comment SCANNED, Platelet Estimate MKD DEC, Anisocytosis 2+, Sodium 144, Potassium 3.7, Chloride 102, Carbon Dioxide 19.9 L, Anion Gap 22 H, BUN 21 H, Creatinine 1.04, Estim Creat Clear Calc 45.28 L, Est GFR (MDRD) Non-Af 59 L, BUN/Creatinine Ratio 20.4 H, Glucose 73, Calcium 8.6, Phosphorus 2.9, Magnesium 2.1, Total Bilirubin 0.59, Direct Bilirubin 0.35 H, AST 59 H, ALT 24, Alkaline Phosphatase 170 H, Lactate Dehydrogenase 456 H, Total Protein 4.3 L, Albumin 2.4 L, Globulin 1.9 L 01/26/25 08:55: Uric Acid 6.6 H Microbiology 01/25/25 11:15 Urine, Clean Catch Urine Culture - Preliminary GNR lactose warp picker 01/25/25 11:15 Stool Stool Occult Blood ([facility]) - Final Occult Blood Positive Diagnostic Data Chest X-Ray 01/24/25 17:41 IMPRESSION: Pulmonary findings as above. Reading Location: [address] Chest/Abdomen/Pelvis CTA 01/24/25 18:35 IMPRESSION: 1. Generalized fluid overload/third-spacing with moderate bilateral pleural effusions, moderate-large volume abdominopelvic ascites, and diffuse subcutaneous edema. 2. Marked splenomegaly. Diffuse retroperitoneal lymphadenopathy, and enlarged inguinal lymph nodes. Nonspecific subcentimeter mediastinal/hilar and axillary nodes, all of which were shown to be hypermetabolic on recent PET-CT, likely related to known mantle cell lymphoma. 3. Mild right hydronephrosis without any discrete obstructing mass or ureteral stone visualized. Few subcentimeter nonobstructive right renal stones. Reading Location: [facility] Echocardiogram 01/25/25 07:09 Interpretation Summary Normal LV size. The left ventricular ejection fraction is 65 %. Stage 1 diastolic dysfunction. Structurally normal valves. Ordering Physician: Yovani Rubin Performed By: Shad Lord RCS Assessment & Plan Assessment/Plan (1) Mantle cell lymphoma: QUALIFIERS: Lymphoma site: multiple regions Qualified Code(s): C83.18 - Mantle cell lymphoma, lymph nodes of multiple sites PLAN: January 26 2025-day 1 of systemic chemotherapy with Bendamustine Rituxan (2) Hyperuricemia: PLAN: Improving with allopurinol and hydration (3) Pancytopenia: PLAN: Transfused with packed red blood cells to hemoglobin 8 g per DL. Prophylactic platelet transfusion if actively bleeding or platelets less than 10K. Hold pharmacologic DVT prophylaxis if platelet count less than 50K. (4) Anasarca: PLAN: Secondary to lymphoma, continue with IV fluid hydration and diuresis for tumor lysis prophylaxis (5) Acidosis, lactic: PLAN: No documented infection, likely secondary to tumor (6) Humoral hypercalcemia of malignancy: PLAN: Improved after outpatient zoledronic acid and hydration PLAN: Plan Oncology plan for upcoming 4 weeks 1-continue allopurinol for tumor lysis prophylaxis for 10 days. 2. Continue IV fluid/diuresis for tumor lysis prophylaxis up to day 3 of the cycle. 3. Growth factor with Granix starting on day 3 for 10 days. 4. CBC, type and cross, transfuse as outpatient weekly to maintain hemoglobin at 8 g per DL. 5. She will need intensive inpatient rehab. 6. Follow-up with medical oncology in 4 weeks.
--- NOTE | 2025-01-26 18:10 | RAD_ITS ---
PROCEDURE: CHEST 1 VIEW (PORTABLE) 01/26/2025 REASON FOR EXAM: SUSPECTED FLUID OVERLOAD TECHNIQUE: Frontal view of the chest. COMPARISON: January 24, 2025 FINDINGS: A vascular access port overlies the right hemithorax. Bilateral pleural effusions are noted with perihilar ground-glass opacities suggesting pulmonary edema. There is no pneumothorax. Heart size is grossly within normal limits. Osseous structures are similar to the previous study. RAD/Chest 1 View (Portable) IMPRESSION: Pulmonary edema as above Reading [facility]
[2025-01-26 21:52] LABS: Hematocrit 27.4 % (37-47); Hemoglobin 8.5 g/dL (12.0-15.0); POSITIVE COUNT YES
--- NOTE | 2025-01-26 22:35 | PCM.HOSP.N ---
Hospitalist Note Repeat H/H completed after PRBC transfusion, lab notified nrsg that Platelet level was 34. Added Platelet order to publish result to chart. HOLD placed on enoxaparin, until platelets are greater than 50 per oncology. I ordered SCDs, but if she cannot tolerate SCDs, then nrsg is to apply MARYLOU wraps to BLE for compression.
[2025-01-26 23:05] LABS: Platelet Count 34 K/mm3 (150-450)
[2025-01-27] VITALS (27 sets, daily range): BP systolic 94–115; BP diastolic 55–71; PULSE 82–108; RESP 15–26; TEMP 36.7–36.9; O2SAT 87–100; BMI 20.7
[2025-01-27] MEDS: Piperacil/Tazobactam 3.375 GM in 0.9% Normal Saline (50mL MB+) 50 ML IV (05:34)
--- NOTE | 2025-01-27 07:04 | PCM.PN.INT ---
Assessment & Plan Assessment/Plan (1) Acidosis, lactic: PLAN: Plan RECOMMENDATIONS: 1. Continue to wean supplemental oxygen to maintain saturations at or above 90%. 2. Continue to monitor H&H and transfuse if hemoglobin drops below 7 g/dL. 3. Continue to hold pharmacologic DVT prophylaxis and continue SCDs. 4. Continue PPI therapy as ordered. 5. Continue empiric antimicrobials pending culture results. IMPRESSIONS: 1. Lactic acidosis Most likely secondary to underlying active malignant process. I do not feel that the patient is in a shock state as her hemodynamic status has been stable and end organ perfusion appears intact, as evidenced by normal creatinine and renal function. Antimicrobial should be continued, pending finalized culture results. In the interim, we will continue gentle IV fluid hydration over concerns for tumor lysis, in the setting of her known malignancy and initiation of chemotherapy. 2. Newly diagnosed mantle cell lymphoma Oncology and palliative care medicine are following to assist with medical management and to facilitate goals of care discussion. 3. Anemia The patient has chronic anemia which has worsened over the course of this hospitalization. Recommend continuing to monitor H&H and transfuse if hemoglobin drops below 7 g/dL. Continue PPI therapy. 4. History of GERD/prior tobacco dependency in remission/generalized weakness with malnutrition Complicates care, management, recovery and prognosis. Continue supportive measures as noted above. PT/OT to work with the patient. This note was generated with [employer] dictation software. It may contain incorrect words, spelling, and punctuation that were not noted in checking the note before signing. Subjective Subjective The patient was seen and examined at the bedside this morning. Events from the last 24 hours have been reviewed. The patient is currently afebrile, hemodynamically stable and maintaining appropriate oxygen saturations on 2 L/min via nasal cannula. Objective Data Objective Data The patient's most recent lab work, culture data and imaging studies have all been personally reviewed. Blood and urine cultures are pending. Stool for occult blood was positive. Vital Signs: Vital Signs Temp Pulse Resp BP Pulse Ox O2 Del Method O2 Flow Rate 98.8 F 95 16 106/61 96 Nasal Cannula 2 01/26/25 20:24 01/27/25 07:00 01/27/25 07:00 01/27/25 07:00 01/27/25 07:00 01/27/25 07:00 01/27/25 07:00 Oxygen Flow Rate (L/min) 2 Oxygen Delivery Method Nasal Cannula Weight: 132 lb 7.965 oz Body Mass Index (BMI) 20.7 Intake & Output: Intake and Output for Last 24 Hours 01/25/25 01/26/25 01/27/25 23:59 23:59 23:59 Intake Total 1999 3487.10 / 3487.10 50 / 50 Output Total 750 / 950 650 / 650 850 / 850 Balance 1250 / 1050 2837.10 / 2837.10 -800 / -800 Lab / Micro Data Attestation: I reviewed the patient's lab results. 01/27/25 07:40 01/27/25 07:40 Labs: Laboratory Results - last 24 hr 01/25/25 08:00: Crossmatch See Detail 01/26/25 08:55: Uric Acid 6.6 H 01/26/25 21:35: Hgb 8.5 L, Hct 27.4 L, Plt Count 34 L* 01/26/25 21:35: Plt Count Cancelled Micro: Microbiology 01/25/25 11:15 Urine, Clean Catch Urine Culture - Preliminary GNR lactose flight data technician 01/25/25 11:15 Stool Stool Occult Blood ([facility]) - Final Occult Blood Positive Radiography Diagnostic Testing: Radiology Impression Chest X-Ray 01/26/25 18:10 IMPRESSION: Pulmonary edema as above Reading Location: [facility] Rhythm Strip Rhythm Strip: A-fib Rate: 108 Ectopy: - (Patient appears to be in atrial fibrillation on the monitor at bedside. Heart rate is between 98-1 14.) Physical Exam Const alert and no apparent distress General Appearance: cooperative and ill appearing HEENT normocephalic and head/scalp atraumatic Eyes PERRL, EOMs intact bilaterally and conjunctivae normal Neck supple General: trachea midline Chest inspection of chest normal Resp normal respiratory effort and no use of accessory muscles Effort and Inspection: able to speak in complete sentences Auscultation: diminished lung sounds Cardio regular rate and regular rhythm GI soft to palpation Inspection: anasarca present and abdominal distention Extremity General Extremity: edema; Negative for clubbing Skin no rashes or lesions noted Neuro CN's II-XII intact bilaterally, moves all extremities and no focal motor deficits Psych Mood & Affect: flat affect Charges/Coding Visit Charges Inpatient E&M: 12626 Subs Hosp L2
--- NOTE | 2025-01-27 07:12 | PCM.PN.HOSP ---
Reason for Visit Chief Complaint: Progressive weakness and volume overload Subjective Subjective Patient was started on chemotherapy with Bendamustine Rituxan on 01/26/2025.. Patient was also on IV hydration to prevent tumor lysis syndrome. Patient had been transfused with 1 unit PRBC the day prior. Patient became tachycardic and imaging studies obtained later demonstrated pulmonary edema did order 1 dose of 40 mg of IV Lasix. Objective Data Objective Data Vital Signs: Vital Signs Temp Pulse Resp BP Pulse Ox O2 Del Method O2 Flow Rate 98.8 F 95 16 106/61 96 Nasal Cannula 2 01/26/25 20:24 01/27/25 07:00 01/27/25 07:00 01/27/25 07:00 01/27/25 07:00 01/27/25 07:00 01/27/25 07:00 Oxygen Flow Rate (L/min) 2 Oxygen Delivery Method Nasal Cannula Weight: 60.1 kg Body Mass Index (BMI) 20.7 Intake & Output: Intake and Output for Last 24 Hours 01/25/25 01/26/25 01/27/25 23:59 23:59 23:59 Intake Total 1999 / 1999 3487.10 / 3487.10 50 / 50 Output Total 750 / 950 650 / 650 850 / 850 Balance 1250 / 1050 2837.10 / 2837.10 -800 / -800 Lab / Micro Data 01/27/25 07:40 01/27/25 07:40 Labs: Laboratory Results - last 24 hr 01/25/25 08:00: Crossmatch See Detail 01/26/25 08:55: Uric Acid 6.6 H 01/26/25 21:35: Hgb 8.5 L, Hct 27.4 L, Plt Count 34 L* 01/26/25 21:35: Plt Count Cancelled Micro: Microbiology 01/25/25 11:15 Urine, Clean Catch Urine Culture - Preliminary GNR lactose rim technician 01/25/25 11:15 Stool Stool Occult Blood ([facility]) - Final Occult Blood Positive Radiography Diagnostic Testing: Radiology Impression Chest X-Ray 01/26/25 18:10 IMPRESSION: Pulmonary edema as above Reading [facility] Rhythm Strip Rhythm Strip: A-fib Rate: 108 Ectopy: - (Patient appears to be in atrial fibrillation on the monitor at bedside. Heart rate is between 98-1 14.) Physical Exam Narrative GENERAL: cooperative But frail looking HEENT: Atraumatic; normocephalic EYES; Anicteric, Normal Conjunctiva NECK; supple, normal thyroid, RESPIRATORY: Diminished to auscultation CARDIOVASCULAR: Regular S1 S2, GI: soft, normoactive bowel sounds, : No Renal angle tenderness; EXTREMITIES: Bilateral pedal edema no clubbing, MUSCULOSKELETAL: no muscle wasting NEURO: Awake; no lateralizing signs. SKIN: No Rash PSYCH; Flat affect Assessment & Plan Assessment/Plan (1) Adult failure to thrive: (2) Acidosis, lactic: (3) Pancytopenia: (4) Mantle cell lymphoma: QUALIFIERS: Lymphoma site: multiple regions Qualified Code(s): C83.18 - Mantle cell lymphoma, lymph nodes of multiple sites PLAN: Plan Patient is a 69-year-old female with history of mantle cell lymphoma who presented with worsening weakness and volume overload. 1. Mantle cell lymphoma -Had port placed with plan to initiate chemotherapy with bendamustine/rituxin on 01/25. Has had worsening weakness and volume overload presumably secondary to her cancer. CT chest abdomen pelvis on admit showed known massive splenomegaly and known diffuse retroperitoneal lymphadenopathy with worsening moderate bilateral pleural effusions and diffuse ascites. Case was discussed with oncologist Dr. Nogueira patient started prophylactically on allopurinol to decrease her risk of tumor lysis syndrome. Plan is to initiate chemo in the hospital ? 01/26/2025;Patient was started on IV fluid in anticipation of initiation of her chemo. Patient is also on allopurinol to prevent tumor lysis syndrome given the heavy burden of her tumor ?Patient was started on chemotherapy with Bendamustine Rituxan on 01/26/2025. Patient LDH markedly elevated at 1066. Case discussed with oncology Dr. Nogueira 3. Pancytopenia ? Malignancy related monitoring with daily CBC with differential ? 01/26/2025; with patient hemoglobin dropping to 6.6, an order was given for patient to be transfused 1 unit PRBC. ? 01/27/2025; patient hemoglobin up to 7.8 platelet count is however down to 32. Patient is on Granix ordered by oncology 3. Acute congestive heart failure ? 2D echo ordered for EF assessment. Patient CHF precipitated by volume overload. Patient has been receiving intermittent furosemide 4. Anasarca ? Related to patient significant tumor burden. Patient has been started on diuretic therapy however this was discontinued after discussion with both oncology as well as end maker given patient high risk for tumor lysis syndrome 5. Lactic acidosis ? Related to patient underlying malignancy patient symptoms not consistent with sepsis 6. Hyperuricemia ? Secondary to heavy tumor burden. Patient is on allopurinol to prevent tumor lysis syndrome in addition to IV hydration 7. Humoral hypercalcemia of malignancy ? Patient calcium level on 12/22/2024 was 12.2 down to 8.5 with treatment 8. COPD ? Not in exacerbation aerosol treatment as needed 9. Vitamin D deficiency ? Patient is on cholecalciferol supplements q. monthly 11. GERD ? Patient is on PPI 9.DVT prophylaxis ? On enoxaparin ? 01/28/2024; enoxaparin discontinued given significant drop in patient platelet counts Time spent in the patient's overall evaluation,decision-making process, review of diagnostic data, adjustment of management, discussion with other providers, nursing nursing and ancillary staff involved in patient's care documentation, 50 Minutes Charges/Coding Visit Charges Inpatient E&M: 81391 Subs Hosp L3
[2025-01-27 07:52] LABS: Hematocrit 25.3 % (37-47); Hemoglobin 7.8 g/dL (12.0-15.0); Immature Granulocytes Count 0.030 X10^3/uL (0.0-0.0); Mean Corp Hgb Conc 30.8 g/dL (32-36); Mean Corpuscular Volume 103.7 fL (81-99); Mean Platelet Vol. 11.1 fl (6.2-12.0); NRBC Flagged by Analyzer 0 % (0-5); POSITIVE COUNT YES; POSITIVE DIFFERENTIAL YES; POSITIVE MORPHOLOGY YES; RBC Distribution Width CV 19.1 % (11.6-14.6); RBC Distribution Width SD 72.3 fl (35.1-43.9); Red Blood Count 2.44 M/mm3 (4.2-5.4); White Blood Count 2.9 K/mm3 (4.4-11.0)
[2025-01-27 07:59] LABS: Differential Indicated SCAN CRITERIA MET; Platelet Count 32 K/mm3 (150-450)
[2025-01-27 08:22] LABS: Anisocytosis 1+; Basophilic Stippling 1+
[2025-01-27 08:25] LABS: Anion Gap 16 (5-15); BUN 26 mg/dL (4-19); BUN/Creat Ratio 22.0 RATIO (10-20); Calcium,Total 7.8 mg/dL (7.6-11.0); Carbon Dioxide 22.9 mmol/L (21.0-32.0); Chloride 105 mmol/L (98-108); Estimated Creatinine Clearance 44.04 ml/min (50-250); Glucose 68 mg/dL (70-99); Potassium 4.3 mmol/L (3.3-5.1)
[2025-01-27] MEDS: 0.9% Normal Saline (1000mL) 1,000 ML 100 ML IV ×2 (08:25→18:18)
[2025-01-27 08:42] LABS: LDH 1066 U/L (84-246); Uric Acid 5.7 mg/dL (2.6-6.0)
[2025-01-27] MEDS: 0.9% Saline Lock 10 ML Syringe IV (08:48)
--- NOTE | 2025-01-27 10:20 | CASEMGMT ---
Per ICU rounds, pt to remain ICU status until after x3 Chemo treatments at least, with the 3rd treatment being tomorrow, 01/28. CM/SW to continue to follow for safe DC planning as the pt does not know what she will need or want at that time yet. Pt denies further questions now.
[2025-01-27] MEDS: Pantoprazole Sodium 40 MG in 0.9% Normal Saline (100mL MB+) 100 ML 330 MG IV (10:29)
--- NOTE | 2025-01-27 11:07 | CASEMGMT ---
VM received from pt's Nurse Advocate through [employer] (Alessandra Meyers @ ext [phone]) inquiring if assistance is needed in DC planning. TC back to the Nurse Advocate at this time. No answer, VM left with pt's plan of care update.
--- NOTE | 2025-01-27 11:20 | CASEMGMT ---
Social Work SW called to pt room. Pt's two brothers are present and pt giving SW permission to speak with brothers. Pt's brother Jadiel Slade ([phone]) is from [place] and engaging in conversation with this SW. Brother inquiring about insurance and coverage and SW explained about this and brother expresses understanding. Brother also stating that pt and dgt are feeling overwhelmed and having difficulty keeping medical information they have been told straight. Pt expresses agreement to this statement. SW offered to request visit from hospitalist and pt and brother are agreeable to this. Message sent to hospitalist who states he will make visit to pt and brother for medical education. ILEANA Guerra
--- NOTE | 2025-01-27 12:33 | PN.ONC_ITS ---
Subjective Subjective Fatigue, no nausea or vomiting, +leg edema, no dyspnea or orthopnea Physical Exam Narrative ECOG 2-3 Const alert and oriented x3 General Appearance: ill appearing Positive for chronically, frail and grossly edematous HEENT moist oral mucous membranes Eyes no scleral icterus Neck no JVD Resp Auscultation: diminished lung sounds bilateral lower Cardio regular rate and regular rhythm GI soft to palpation and non-tender Extremity General Extremity: edema bilateral lower extremity Details: moderate Skin no rashes or lesions noted Neuro CN's II-XII intact bilaterally, moves all extremities and no focal motor deficits Motor Exam: general weakness Psych mental status grossly normal, cooperative and speech normal Vital Signs Temperature 98.2 F 01/27/25 12:00 Temperature Source Temporal 01/27/25 12:00 Pulse Rate 101 H 01/27/25 12:00 Pulse Strength Normal (2+) 01/26/25 22:00 Respiratory Rate 22 H 01/27/25 12:00 Respiratory Effort Normal 01/27/25 12:00 Respiratory Depth Normal 01/27/25 12:00 Respiratory Pattern Normal 01/27/25 12:00 Blood Pressure 111/69 01/27/25 12:00 Blood Pressure Mean 78 01/27/25 12:00 Blood Pressure Source Monitor 01/27/25 12:00 Blood Pressure Position Semi-Fowlers 01/27/25 12:00 Blood Pressure Location Right Arm 01/27/25 12:00 Pulse Ox 97 01/27/25 12:00 Oxygen Delivery Method Nasal Cannula 01/27/25 12:00 Oxygen Flow Rate (L/min) 2 01/27/25 12:00 Laboratory Results - last 24 hr 01/25/25 08:00: Crossmatch See Detail 01/26/25 21:35: Hgb 8.5 L, Hct 27.4 L, Plt Count 34 L* 01/26/25 21:35: Plt Count Cancelled 01/27/25 07:40: WBC 2.9 L, RBC 2.44 L, Hgb 7.8 L, Hct 25.3 L, MCV 103.7 H, MCH 32.0, MCHC 30.8 L, RDW Std Deviation 72.3 H, RDW Coeff of Jeffery 19.1 H, Plt Count 32 L*, MPV 11.1, Immature Gran % (Auto) 1.000 H, Neut % (Auto) 80.9 H, Lymph % (Auto) 8.9 L, [place] % (Auto) 6.5, Eos % (Auto) 1.7, Baso % (Auto) 1.0, Absolute Neuts (auto) 2.4, Absolute Lymphs (auto) 0.26 L, Nucleated RBC % 0, Platelet Estimate MKD DEC, Basophilic Stippling 1+, Anisocytosis 1+, Sodium 144, Potassium 4.3, Chloride 105, Carbon Dioxide 22.9, Anion Gap 16 H, BUN 26 H, Creatinine 1.16, Estim Creat Clear Calc 44.04 L, Est GFR (MDRD) Non-Af 51 L, BUN/Creatinine Ratio 22.0 H, Glucose 68 L, Uric Acid 5.7, Calcium 7.8, Lactate Dehydrogenase 1066 H Microbiology 01/25/25 11:15 Urine, Clean Catch Urine Culture - Preliminary GNR lactose technician helper instrument Gram negative christopher 01/24/25 23:15 Blood Culture (Wb) - Anticubital Right Blood Culture - Preliminary No growth in 48 hours. 01/24/25 23:13 Blood Culture (Wb) - Anticubital Left Blood Culture - Preliminary No growth in 48 hours. Diagnostic Data Chest/Abdomen/Pelvis CTA 01/24/25 18:35 IMPRESSION: 1. Generalized fluid overload/third-spacing with moderate bilateral pleural effusions, moderate-large volume abdominopelvic ascites, and diffuse subcutaneous edema. 2. Marked splenomegaly. Diffuse retroperitoneal lymphadenopathy, and enlarged inguinal lymph nodes. Nonspecific subcentimeter mediastinal/hilar and axillary nodes, all of which were shown to be hypermetabolic on recent PET-CT, likely related to known mantle cell lymphoma. 3. Mild right hydronephrosis without any discrete obstructing mass or ureteral stone visualized. Few subcentimeter nonobstructive right renal stones. Reading Location: [id number] Echocardiogram 01/25/25 07:09 Interpretation Summary Normal LV size. The left ventricular ejection fraction is 65 %. Stage 1 diastolic dysfunction. Structurally normal valves. Ordering Physician: Yovani Rubin Performed By: Shad Lord RCS Chest X-Ray 01/26/25 18:10 IMPRESSION: Pulmonary edema as above Reading Location: [facility] Assessment & Plan Assessment/Plan (1) Mantle cell lymphoma: QUALIFIERS: Lymphoma site: multiple regions Qualified Code(s): C83.18 - Mantle cell lymphoma, lymph nodes of multiple sites PLAN: January 27, 2025-day 2/2 of systemic chemotherapy with Bendamustine Rituxan (2) Hyperuricemia: PLAN: Improving with allopurinol and hydration (3) Pancytopenia: PLAN: Transfuse with packed red blood cells to hemoglobin 8 g per DL. Prophylactic platelet transfusion if actively bleeding or platelets less than 10K. Hold pharmacologic DVT prophylaxis with platelet count less than 50K. Use nonpharmacologic DVT prophylaxis. (4) Anasarca: PLAN: Secondary to lymphoma, continue with IV fluid hydration and concomitant furosemide diuresis for tumor lysis prophylaxis until January 28, 2025 PLAN: Plan Oncology plan for upcoming 4 weeks 1-continue allopurinol for tumor lysis prophylaxis for the total course of 10 days (started January 23, 2025). 2. Continue IV fluid/diuresis for tumor lysis prophylaxis up to day 3 of the cycle. 3. Growth factor with Granix starting on day 3 (January 28, 2025) for 10 days. 4. CBC, type and cross, transfuse as needed weekly to maintain hemoglobin at 8 g per DL. 5. She will need intensive inpatient rehab. 6. Follow-up with medical oncology with cycle 2 of therapy is tentatively planned to start March 01, 2025 (please call [phone] to schedule)
--- NOTE | 2025-01-27 15:17 | CASEMGMT ---
Discharge Planning A list of?SNF providers including quality and resource use data and consistent with the patient's preferred geographic region, medical needs, and insurance network was created in [employer] Guide.? This list was provided to the SW. Livier Radford Discharge Planning Asst.
--- NOTE | 2025-01-27 15:39 | CASEMGMT ---
Social Work SW met with pt to discuss discharge plan. SW discussed with pt Dr. Nogueira's recommendations for SNF and also reviewed therapy notes with pt. Pt states that she does not feel she can return home at this time and will need short term stay in SNF. A list of SNF providers including quality and resource use data and consistent with the patient?s preferred geographic region, medical needs, and insurance network were provided from the [employer] Guide. Pt states she needs time to talk to family about options and choices. SW requested pt talk to family tonight and tomorrow and have 3 choices ready on Saturday. SW to follow up on Saturday. ILEANA Guerra
[2025-01-28] VITALS (17 sets, daily range): BP systolic 91–110; BP diastolic 56–66; PULSE 63–114; RESP 14–20; TEMP 36.4–36.7; O2SAT 90–97; BMI 21.5
[2025-01-28] MEDS: 0.9% Normal Saline (1000mL) 1,000 ML 100 ML IV (04:18)
[2025-01-28 05:58] LABS: Hematocrit 25.4 % (37-47); Hemoglobin 8.0 g/dL (12.0-15.0); Immature Granulocytes Count 0.020 X10^3/uL (0.0-0.0); Mean Corp Hgb Conc 31.5 g/dL (32-36); Mean Corpuscular Volume 101.6 fL (81-99); Mean Platelet Vol. 11.3 fl (6.2-12.0); NRBC Flagged by Analyzer 0 % (0-5); POSITIVE COUNT YES; POSITIVE DIFFERENTIAL YES; POSITIVE MORPHOLOGY YES; RBC Distribution Width CV 18.6 % (11.6-14.6); RBC Distribution Width SD 70.1 fl (35.1-43.9); Red Blood Count 2.50 M/mm3 (4.2-5.4); White Blood Count 1.8 K/mm3 (4.4-11.0)
[2025-01-28 06:06] LABS: Platelet Count 41 K/mm3 (150-450)
[2025-01-28 06:07] LABS: Differential Indicated SCAN CRITERIA MET
[2025-01-28 06:19] LABS: Anion Gap 7 (5-15); BUN 39 mg/dL (4-19); BUN/Creat Ratio 36.3 RATIO (10-20); Calcium,Total 8.2 mg/dL (7.6-11.0); Carbon Dioxide 28.3 mmol/L (21.0-32.0); Chloride 106 mmol/L (98-108); Estimated Creatinine Clearance 49.40 ml/min (50-250); Glucose 219 mg/dL (70-99); Magnesium 2.2 mg/dL (1.5-2.2); Potassium 4.9 mmol/L (3.3-5.1); Uric Acid 5.0 mg/dL (2.6-6.0)
[2025-01-28 06:39] LABS: Anisocytosis 2+; Basophilic Stippling 1+; Differential Comment SCANNED; Macrocytosis 1+; Target Cells RARE; Tear Drop Cell RARE
--- NOTE | 2025-01-28 07:07 | PCM.PN.HOSP ---
Reason for Visit Chief Complaint: Progressive weakness and volume overload Subjective Subjective Patient has completed her first cycle of chemotherapy. Plan is for patient to be transferred from the ICU to the progressive care unit. Patient WBC count trending up however creatinine and uric acid remain within normal limit. Objective Data Objective Data Vital Signs: Vital Signs Temp Pulse Resp BP Pulse Ox O2 Del Method O2 Flow Rate 97.9 F 72 14 95/61 95 Nasal Cannula 2 01/28/25 00:00 01/28/25 07:00 01/28/25 06:00 01/28/25 07:00 01/28/25 07:00 01/28/25 07:00 01/28/25 07:00 Oxygen Flow Rate (L/min) 2 Oxygen Delivery Method Nasal Cannula Weight: 62.2 kg Body Mass Index (BMI) 21.5 Intake & Output: Intake and Output for Last 24 Hours 01/26/25 01/27/25 01/28/25 23:59 23:59 23:59 Intake Total 3487.10 / 3487.10 2846.43 / 2846.43 1000 / 1000 Output Total 650 / 650 1550 / 1775 325 / 325 Balance 2837.10 / 2837.10 1296.43 / 1071.43 675 / 675 Lab / Micro Data 01/28/25 05:45 01/28/25 05:45 Labs: Laboratory Results - last 24 hr 01/27/25 07:40: WBC 2.9 L, RBC 2.44 L, Hgb 7.8 L, Hct 25.3 L, MCV 103.7 H, MCH 32.0, MCHC 30.8 L, RDW Std Deviation 72.3 H, RDW Coeff of Jeffery 19.1 H, Plt Count 32 L*, MPV 11.1, Immature Gran % (Auto) 1.000 H, Neut % (Auto) 80.9 H, Lymph % (Auto) 8.9 L, Hopkins % (Auto) 6.5, Eos % (Auto) 1.7, Baso % (Auto) 1.0, Absolute Neuts (auto) 2.4, Absolute Lymphs (auto) 0.26 L, Nucleated RBC % 0, Platelet Estimate MKD DEC, Basophilic Stippling 1+, Anisocytosis 1+, Sodium 144, Potassium 4.3, Chloride 105, Carbon Dioxide 22.9, Anion Gap 16 H, BUN 26 H, Creatinine 1.16, Estim Creat Clear Calc 44.04 L, Est GFR (MDRD) Non-Af 51 L, BUN/Creatinine Ratio 22.0 H, Glucose 68 L, Uric Acid 5.7, Calcium 7.8, Lactate Dehydrogenase 1066 H 01/28/25 05:45: WBC 1.8 L, RBC 2.50 L, Hgb 8.0 L, Hct 25.4 L, MCV 101.6 H, MCH 32.0, MCHC 31.5 L, RDW Std Deviation 70.1 H, RDW Coeff of Jeffery 18.6 H, Plt Count 41 L*, MPV 11.3, Immature Gran % (Auto) 1.100 H, Neut % (Auto) 85.1 H, Lymph % (Auto) 4.4 L, Hopkins % (Auto) 8.8, Eos % (Auto) 0.0, Baso % (Auto) 0.6, Absolute Neuts (auto) 1.5 L, Absolute Lymphs (auto) 0.08 L, Nucleated RBC % 0, Differential Comment SCANNED, Platelet Estimate MKD DEC, Basophilic Stippling 1+, Anisocytosis 2+, Macrocytosis 1+, Target Cells RARE, Tear Drop Cells RARE, Ovalocytes 1+, Sodium 141, Potassium 4.9, Chloride 106, Carbon Dioxide 28.3, Anion Gap 7, BUN 39 H, Creatinine 1.06, Estim Creat Clear Calc 49.40 L, Est GFR (MDRD) Non-Af 57 L, BUN/Creatinine Ratio 36.3 H, Glucose 219 H, Uric Acid 5.0, Calcium 8.2, Phosphorus 6.1 H, Magnesium 2.2 Micro: Microbiology 01/25/25 11:15 Urine, Clean Catch Urine Culture - Preliminary GNR lactose ict customer support officer Gram negative christopher 01/24/25 23:15 Blood Culture (Wb) - Anticubital Right Blood Culture - Preliminary No growth in 48 hours. 01/24/25 23:13 Blood Culture (Wb) - Anticubital Left Blood Culture - Preliminary No growth in 48 hours. 01/25/25 11:15 Stool Stool Occult Blood ([facility]) - Final Occult Blood Positive Rhythm Strip Rhythm Strip: A-fib Rate: 108 Ectopy: - (Patient appears to be in atrial fibrillation on the monitor at bedside. Heart rate is between 98-1 14.) Physical Exam Narrative GENERAL: cooperative But frail looking HEENT: Atraumatic; normocephalic EYES; Anicteric, Normal Conjunctiva NECK; supple, normal thyroid, RESPIRATORY: Diminished to auscultation CARDIOVASCULAR: Regular S1 S2, GI: soft, normoactive bowel sounds, : No Renal angle tenderness; EXTREMITIES: Bilateral pedal edema no clubbing, MUSCULOSKELETAL: no muscle wasting NEURO: Awake; no lateralizing signs. SKIN: No Rash PSYCH; Flat affect Assessment & Plan Assessment/Plan (1) Adult failure to thrive: (2) Acidosis, lactic: (3) Pancytopenia: (4) Mantle cell lymphoma: QUALIFIERS: Lymphoma site: multiple regions Qualified Code(s): C83.18 - Mantle cell lymphoma, lymph nodes of multiple sites PLAN: Plan Patient is a 69-year-old female with history of mantle cell lymphoma who presented with worsening weakness and volume overload. 1. Mantle cell lymphoma -Had port placed with plan to initiate chemotherapy with bendamustine/rituxin on 01/25. Has had worsening weakness and volume overload presumably secondary to her cancer. CT chest abdomen pelvis on admit showed known massive splenomegaly and known diffuse retroperitoneal lymphadenopathy with worsening moderate bilateral pleural effusions and diffuse ascites. Case was discussed with oncologist Dr. Nogueira patient started prophylactically on allopurinol to decrease her risk of tumor lysis syndrome. Plan is to initiate chemo in the hospital ? 01/26/2025;Patient was started on IV fluid in anticipation of initiation of her chemo. Patient is also on allopurinol to prevent tumor lysis syndrome given the heavy burden of her tumor ? 01/27/2025 patient was started on chemotherapy with Bendamustine Rituxan on 01/26/2025. Patient LDH markedly elevated at 1066. Case discussed with oncology Dr. Nogueira ? 01/28/2025: Patient has completed her first cycle of chemotherapy. Plan is for second cycle starting 03/01/2025. Patient to call to schedule. 3. Pancytopenia ? Malignancy related monitoring with daily CBC with differential ? 01/26/2025; with patient hemoglobin dropping to 6.6, an order was given for patient to be transfused 1 unit PRBC. ? 01/27/2025; patient hemoglobin up to 7.8 platelet count is however down to 32. Patient is on Granix ordered by oncology ? 01/28/2025; patient platelet count up to 42, Hemoglobin remains low at 8.0. Repeat CBC with differential ordered for a.m. 3. Acute congestive heart failure ? 2D echo ordered for EF assessment. Patient CHF precipitated by volume overload. Patient has been receiving intermittent furosemide ? 01/28/2025 patient 2D echo demonstrated Normal LV size. The left ventricular ejection fraction is 65 %. Stage 1 diastolic dysfunction. Structurally normal valves. 4. Anasarca ? Related to patient significant tumor burden. Patient has been started on diuretic therapy however this was discontinued after discussion with both oncology as well as nuclear criticality safety engineer given patient high risk for tumor lysis syndrome 5. Lactic acidosis ? Related to patient underlying malignancy patient symptoms not consistent with sepsis 6. Hyperuricemia ? Secondary to heavy tumor burden. Patient is on allopurinol to prevent tumor lysis syndrome in addition to IV hydration 7. Humoral hypercalcemia of malignancy ? Patient calcium level on 12/22/2024 was 12.2 down to 8.5 with treatment 8. COPD ? Not in exacerbation aerosol treatment as needed 9. Vitamin D deficiency ? Patient is on cholecalciferol supplements q. monthly 11. GERD ? Patient is on PPI 9.DVT prophylaxis ? On enoxaparin ? 01/28/2024; enoxaparin discontinued given significant drop in patient platelet counts Time spent in the patient's overall evaluation,decision-making process, review of diagnostic data, adjustment of management, discussion with other providers, nursing nursing and ancillary staff involved in patient's care documentation, 40 Minutes Charges/Coding Visit Charges Inpatient E&M: 53346 Subs Hosp L2
[2025-01-28] MEDS: TBO-FILGRASTIM 300 MCG/0.5 ML ML SC (09:22)
[2025-01-28] MEDS: Furosemide 20 MG/2 ML VIAL IV (10:38)
[2025-01-28] MEDS: 0.9% Saline Lock 10 ML Syringe IV ×2 (10:39→19:09)
[2025-01-28 14:31] LABS: LDH 1133 U/L (84-246)
[2025-01-28] MEDS: 0.9% Normal Saline (1000mL) 1,000 ML 150 ML IV ×2 (15:44→22:56)
[2025-01-29] VITALS (8 sets, daily range): BP systolic 102–113; BP diastolic 59–70; PULSE 92–101; RESP 18–20; TEMP 36.3–36.9; O2SAT 92–96; BMI 23.2
[2025-01-29 07:23] LABS: Magnesium 2.0 mg/dL (1.5-2.2)
--- NOTE | 2025-01-29 07:48 | PCM.PN.HOSP ---
Reason for Visit Chief Complaint: Progressive weakness and volume overload Subjective Subjective Patient BUN trending up restarted patient IV fluid in the prior. Patient phosphorus is also up to 5.1. Plan is to administer oral phosphate binders Objective Data Objective Data Vital Signs: Vital Signs Temp Pulse Resp BP Pulse Ox O2 Del Method O2 Flow Rate 98.4 F 101 H 20 H 111/70 95 Nasal Cannula 4 01/29/25 03:30 01/29/25 03:30 01/29/25 03:30 01/29/25 03:30 01/29/25 03:30 01/29/25 03:35 01/29/25 03:35 Oxygen Flow Rate (L/min) 4 Oxygen Delivery Method Nasal Cannula Weight: 67.1 kg Body Mass Index (BMI) 23.2 Intake & Output: Intake and Output for Last 24 Hours 01/27/25 01/28/25 01/29/25 23:59 23:59 23:59 Intake Total 2846.43 / 2846.43 3300.00 / 3300.00 1000 / 1000 Output Total 1550 / 1775 725 / 725 300 / 300 Balance 1296.43 / 1071.43 2575.00 / 2575.00 700 / 700 Lab / Micro Data 01/29/25 05:20 01/29/25 05:20 Labs: Laboratory Results - last 24 hr 01/25/25 08:00: Crossmatch See Detail 01/28/25 05:45: Lactate Dehydrogenase 1133 H 01/29/25 05:25: Phosphorus 5.1 H, Magnesium 2.0 Micro: Microbiology 01/25/25 11:15 Urine, Clean Catch Urine Culture - Final Enterobacter cloacae complex Escherichia coli 01/24/25 23:15 Blood Culture (Wb) - Anticubital Right Blood Culture - Preliminary No growth in 48 hours. 01/24/25 23:13 Blood Culture (Wb) - Anticubital Left Blood Culture - Preliminary No growth in 48 hours. 01/25/25 11:15 Stool Stool Occult Blood ([facility]) - Final Occult Blood Positive Rhythm Strip Rhythm Strip: A-fib Rate: 108 Ectopy: - (Patient appears to be in atrial fibrillation on the monitor at bedside. Heart rate is between 98-1 14.) Physical Exam Narrative GENERAL: But frail looking HEENT: Atraumatic; normocephalic EYES; Anicteric, Normal Conjunctiva NECK; supple, normal thyroid, RESPIRATORY: Diminished to auscultation CARDIOVASCULAR: Regular S1 S2, GI: soft, normoactive bowel sounds, : No Renal angle tenderness; EXTREMITIES: Bilateral pedal edema no clubbing, MUSCULOSKELETAL: no muscle wasting NEURO: Awake; no lateralizing signs. SKIN: No Rash PSYCH; Flat affect Assessment & Plan Assessment/Plan (1) Adult failure to thrive: (2) Acidosis, lactic: (3) Pancytopenia: (4) Mantle cell lymphoma: QUALIFIERS: Lymphoma site: multiple regions Qualified Code(s): C83.18 - Mantle cell lymphoma, lymph nodes of multiple sites PLAN: Plan Patient is a 69-year-old female with history of mantle cell lymphoma who presented with worsening weakness and volume overload. 1. Mantle cell lymphoma -Had port placed with plan to initiate chemotherapy with bendamustine/rituxin on 01/25. Has had worsening weakness and volume overload presumably secondary to her cancer. CT chest abdomen pelvis on admit showed known massive splenomegaly and known diffuse retroperitoneal lymphadenopathy with worsening moderate bilateral pleural effusions and diffuse ascites. Case was discussed with oncologist Dr. Nogueira patient started prophylactically on allopurinol to decrease her risk of tumor lysis syndrome. Plan is to initiate chemo in the hospital ? 01/26/2025;Patient was started on IV fluid in anticipation of initiation of her chemo. Patient is also on allopurinol to prevent tumor lysis syndrome given the heavy burden of her tumor ? 01/27/2025 patient was started on chemotherapy with Bendamustine Rituxan on 01/26/2025. Patient LDH markedly elevated at 1066. Case discussed with oncology Dr. Nogueira ? 01/28/2025: Patient has completed her first cycle of chemotherapy. Plan is for second cycle starting 03/01/2025. Patient to call to schedule. ? 01/29/2025; patient BUN trending up restarted IV fluids. 3. Pancytopenia ? Malignancy related monitoring with daily CBC with differential ? 01/26/2025; with patient hemoglobin dropping to 6.6, an order was given for patient to be transfused 1 unit PRBC. ? 01/27/2025; patient hemoglobin up to 7.8 platelet count is however down to 32. Patient is on Granix ordered by oncology ? 01/28/2025; patient platelet count up to 42, Hemoglobin remains low at 8.0. Repeat CBC with differential ordered for a.m. ? 01/29/2025; patient WBC count up to 3.8, hemoglobin 8.7 and platelet count 45 3. Acute congestive heart failure ? 2D echo ordered for EF assessment. Patient CHF precipitated by volume overload. Patient has been receiving intermittent furosemide ? 01/28/2025 patient 2D echo demonstrated Normal LV size. The left ventricular ejection fraction is 65 %. Stage 1 diastolic dysfunction. Structurally normal valves. 4. Anasarca ? Related to patient significant tumor burden. Patient has been started on diuretic therapy however this was discontinued after discussion with both oncology as well as vp information technology given patient high risk for tumor lysis syndrome 5. Lactic acidosis ? Related to patient underlying malignancy patient symptoms not consistent with sepsis 6. Hyperuricemia ? Secondary to heavy tumor burden. Patient is on allopurinol to prevent tumor lysis syndrome in addition to IV hydration 7. Humoral hypercalcemia of malignancy ? Patient calcium level on 12/22/2024 was 12.2 down to 8.5 with treatment 8. COPD ? Not in exacerbation aerosol treatment as needed 9. Vitamin D deficiency ? Patient is on cholecalciferol supplements q. monthly 11. GERD ? Patient is on PPI 9.DVT prophylaxis ? On enoxaparin ? 01/28/2024; enoxaparin discontinued given significant drop in patient platelet counts 10. Hypophosphatemia ? Patient started on oral phosphate binders Time spent in the patient's overall evaluation,decision-making process, review of diagnostic data, adjustment of management, discussion with other providers, nursing nursing and ancillary staff involved in patient's care documentation, 40 Minutes Charges/Coding Visit Charges Inpatient E&M: 04881 Subs Hosp L2
[2025-01-29 08:11] LABS: Hematocrit 27.9 % (37-47); Hemoglobin 8.7 g/dL (12.0-15.0); Immature Granulocytes Count 0.180 X10^3/uL (0.0-0.0); Mean Corp Hgb Conc 31.2 g/dL (32-36); Mean Corpuscular Volume 103.7 fL (81-99); Mean Platelet Vol. 11.4 fl (6.2-12.0); NRBC Flagged by Analyzer 0 % (0-5); POSITIVE COUNT YES; POSITIVE DIFFERENTIAL YES; POSITIVE MORPHOLOGY YES; Platelet Count 45 K/mm3 (150-450); RBC Distribution Width CV 18.6 % (11.6-14.6); RBC Distribution Width SD 69.9 fl (35.1-43.9); Red Blood Count 2.69 M/mm3 (4.2-5.4); White Blood Count 3.8 K/mm3 (4.4-11.0)
[2025-01-29 08:15] LABS: Differential Indicated SCAN CRITERIA MET
[2025-01-29 08:31] LABS: AST(SGOT) 33 U/L (<=31); Alanine Aminotransfer ALT/SGPT 19 U/L (<=34); Albumin, Serum 2.3 g/dL (3.4-4.8); Alkaline Phosphatase 151 U/L (35-104); Anion Gap 11 (5-15); BUN 38 mg/dL (4-19); BUN/Creat Ratio 34.5 RATIO (10-20); Bilirubin, Direct 0.28 mg/dL (0.00-0.30); Calcium,Total 8.2 mg/dL (7.6-11.0); Carbon Dioxide 24.1 mmol/L (21.0-32.0); Chloride 109 mmol/L (98-108); Estimated Creatinine Clearance 47.60 ml/min (50-250); Globulin 1.9 g/dL (2.2-4.2); Glucose 120 mg/dL (70-99); Potassium 4.4 mmol/L (3.3-5.1)
[2025-01-29 08:34] LABS: Anisocytosis 1+
[2025-01-29] MEDS: TBO-FILGRASTIM 300 MCG/0.5 ML ML SC (08:34)
--- NOTE | 2025-01-29 09:29 | PCM.DC ---
Discharge Instructions DC O2, CPAP, BIPAP needs Home O2 Discharge instructions: No Follow Up Care Test Results: Test results from this visit will be discussed in further detail at your follow-up appointment, if applicable. Discharge Plan Admission Admit Date/Time: 01/24/25 23:04 Attending Provider: Godfrey Calles Primary Care Provider: Vidal Ling DIAMOND POWDER TECHNICIAN Consulting Providers: Ralf Pate; Amelia Caruso; Jose Holden; Micky Franklin; Joaquim Huerta; Yovani Rubin; Godfrey Couch; Cheri Powell; Judson Lira; Patrice Saba; Brett Isbell; Viridiana Pastor; Ari Bradley; Rudy Myers; Yamilet Enamorado; Oneil Romano; Andrew Schwartz; David Witt; Shaniqua Dolan; Vandana Bustamante; Lise Clemente; Lucero Vazquez; Harriet Ureña; Walt Szymanski; Kandi Rae; Mariza Nuñez; Ventura Ingram; Carolina Arredondo; Kandi Gibson; Canelo Abraham; Derian Laguna; Be Moore; Yemi Ernandez; Florence,Renny; Cynthia,Catrachito; Thierry Mora; Bhavin Valladares; Char Snider; Stephania Osuna; Wilmer Quinteros; Tracee,Scot; Costa,Donovan; Beto,Isamar; Romulo Siu; Godfrey Damico; Farshad Dan; Jadiel Burns; Ten Nogueira; Gaurav Wills; Darin Quinones; Marshal Reddy; Ranjit Harden; Rolf Schultz; Carmencita Ivy DIAMOND POWDER TECHNICIAN Discharge Orders/Prescriptions Prescriptions: No Action vitamin B complex Tablet 1 tab PO QDAY cholecalciferol (vitamin D3) 1,250 mcg (50,000 unit) capsule 1,250 mcg PO QMONTH ondansetron 8 mg tablet,disintegrating 8 mg PO Q8H PRN (Reason: nausea and vomiting) Qty: 30 2RF lidocaine-prilocaine 2.5-2.5 % cream 1 applic topical ONCE PRN (Reason: port access) 30 Days Qty: 30 2RF potassium chloride 20 mEq tablet,ER particles/crystals 20 meq PO DAILY Qty: 3 0RF allopurinol 300 mg tablet 300 mg PO QDAY Qty: 7 0RF Patient Comments: starting 01/24/2025 Rx Instructions: Start on 01/24/25 pantoprazole 40 mg tablet,delayed release (DR/EC) 40 mg PO DAILY -mn [id number] [Centrum ] 1 tab PO DAILY tramadol 50 mg tablet 50 mg PO Q6H PRN (Reason: pain) 2 Days Qty: 5 0RF Referrals / Follow Up: Vidal Ling DIAMOND POWDER TECHNICIAN, DIAMOND POWDER TECHNICIAN-C [Primary Care Provider, Family Practice]
--- NOTE | 2025-01-29 09:58 | CASEMGMT ---
Addendum entered by Joann Mcdowell 01/29/25 15:16: The patients 2nd choice is [facility] and the 3rd choice is [facility]. Addendum entered by Joann Mcdowell 01/29/25 10:17: SW made a referral to TCU. Original Note: Social Work SW spoke with the patient regarding SNF choices. She reported her and her daughter have not discussed it yet. Patient reported her daughter has the SNF list. SW asked if SW could call the daughter and the patient reported no they still need to discuss it. Patient reported they could make choices tomorrow. SW explained SW needs to work a DC plan. SW explained that the insurance company will need to approve her DC to a SNF. Patient asked if the hospital has a SNF and SW informed yes. Patient reported she would want to DC to that SNF. SW informed her SW would make the referral to TCU but would like a couple of more choices as well. SW explained SW would follow up with her this afternoon regarding other choices. VALENTIN Crow
[2025-01-29] MEDS: 0.9% Normal Saline (1000mL) 1,000 ML 100 ML IV (11:16)
--- NOTE | 2025-01-29 15:48 | CASEMGMT ---
Addendum entered by Liveir Radford 02/02/25 09:15: Pt was accepted to TCU. [facility] referral cancelled. Original Note: Discharge Planning Referrral sent via [facility] to [facility]. Livier Radford DC Planning Asst.
[2025-01-30 02:15] VITALS: BP 107/67; PULSE 99; RESP 16; TEMP 36.1; O2SAT 95
[2025-01-30 03:44] VITALS: BMI 23.1
[2025-01-30 06:57] LABS: Hematocrit 27.8 % (37-47); Hemoglobin 8.6 g/dL (12.0-15.0); Mean Corp Hgb Conc 30.9 g/dL (32-36); Mean Corpuscular Volume 104.1 fL (81-99); Mean Platelet Vol. 11.2 fl (6.2-12.0); POSITIVE COUNT YES; POSITIVE DIFFERENTIAL YES; POSITIVE MORPHOLOGY YES; RBC Distribution Width CV 18.4 % (11.6-14.6); RBC Distribution Width SD 70.6 fl (35.1-43.9); Red Blood Count 2.67 M/mm3 (4.2-5.4); White Blood Count 4.5 K/mm3 (4.4-11.0)
[2025-01-30 07:03] LABS: Differential Indicated MANUAL DIFF
[2025-01-30 07:04] LABS: Platelet Count 47 K/mm3 (150-450)
[2025-01-30 07:11] LABS: Anion Gap 7 (5-15); BUN 35 mg/dL (4-19); BUN/Creat Ratio 37.5 RATIO (10-20); Calcium,Total 8.5 mg/dL (7.6-11.0); Carbon Dioxide 25.5 mmol/L (21.0-32.0); Chloride 110 mmol/L (98-108); Estimated Creatinine Clearance 56.91 ml/min (50-250); Glucose 103 mg/dL (70-99); Magnesium 2.3 mg/dL (1.5-2.2); Potassium 4.4 mmol/L (3.3-5.1)
[2025-01-30] MEDS: 0.9% Saline Lock 10 ML Syringe IV (09:02)
[2025-01-30] MEDS: 0.9% Normal Saline (1000mL) 1,000 ML 100 ML IV ×2 (09:02→20:54)
[2025-01-30 09:06] VITALS: BP 135/59; PULSE 99; RESP 17; TEMP 36.6; O2SAT 93
[2025-01-30 09:10] LABS: Neutrophil-Band 4 % (0-5); Neutrophil-Segmented 91 % (47-70); Nucleated Red Bld Cells,Manual 1 % (0-5); Total Cells Counted 100 (MANUAL DIFF)
[2025-01-30 09:12] LABS: Anisocytosis 2+; Macrocytosis 1+
--- NOTE | 2025-01-30 09:16 | PCM.PN.HOSP ---
Reason for Visit Chief Complaint: Progressive weakness and volume overload Subjective Subjective Patient seen no change in clinical condition. Patient was started on phosphate binders for hyperphosphatemia patient phosphate level down this a.m. Objective Data Objective Data Vital Signs: Vital Signs Temp Pulse Resp BP Pulse Ox O2 Del Method O2 Flow Rate 98 F 99 17 135/59 H 93 Nasal Cannula 4 01/30/25 09:06 01/30/25 09:06 01/30/25 09:06 01/30/25 09:06 01/30/25 09:06 01/30/25 09:06 01/30/25 09:06 Oxygen Flow Rate (L/min) 4 Oxygen Delivery Method Nasal Cannula Weight: 66.8 kg Body Mass Index (BMI) 23.1 Intake & Output: Intake and Output for Last 24 Hours 01/28/25 01/29/25 01/30/25 23:59 23:59 23:59 Intake Total 3300.00 / 3300.00 2860 / 2860 Output Total 725 / 725 1550 / 1550 Balance 2575.00 / 2575.00 1310 / 1310 Lab / Micro Data 01/30/25 06:20 01/30/25 06:20 Labs: Laboratory Results - last 24 hr 01/30/25 06:20: WBC 4.5, RBC 2.67 L, Hgb 8.6 L, Hct 27.8 L, MCV 104.1 H, MCH 32.2 H, MCHC 30.9 L, RDW Std Deviation 70.6 H, RDW Coeff of Jeffery 18.4 H, Plt Count 47 L*, MPV 11.2, Neut % (Auto) Not Reportable, Absolute Neuts (auto) 4.1, Absolute Lymphs (auto) Not Reportable, Total Counted 100, Neutrophils % (Manual) 91 H, Band Neutrophils % 4, Monocytes % (Manual) 1, Eosinophils % (Manual) 1, Metamyelocytes % 3 H, Nucleated RBCs/100 WBC 1, Diff Path Review July, Platelet Estimate MOD DEC, Anisocytosis 2+, Macrocytosis 1+, Sodium 143, Potassium 4.4, Chloride 110 H, Carbon Dioxide 25.5, Anion Gap 7, BUN 35 H, Creatinine 0.92, Estim Creat Clear Calc 56.91, Est GFR (MDRD) Non-Af 68, BUN/Creatinine Ratio 37.5 H, Glucose 103 H, Calcium 8.5, Phosphorus 4.4, Magnesium 2.3 H Micro: Microbiology 01/24/25 23:13 Blood Culture (Wb) - Anticubital Left Blood Culture - Final No growth in 5 days. 01/24/25 23:15 Blood Culture (Wb) - Anticubital Right Blood Culture - Final No growth in 5 days. 01/25/25 11:15 Urine, Clean Catch Urine Culture - Final Enterobacter cloacae complex Escherichia coli 01/25/25 11:15 Stool Stool Occult Blood ([facility]) - Final Occult Blood Positive Rhythm Strip Rhythm Strip: A-fib Rate: 108 Ectopy: - (Patient appears to be in atrial fibrillation on the monitor at bedside. Heart rate is between 98-1 14.) Physical Exam Narrative GENERAL: But frail looking HEENT: Atraumatic; normocephalic EYES; Anicteric, Normal Conjunctiva NECK; supple, normal thyroid, RESPIRATORY: Diminished to auscultation CARDIOVASCULAR: Regular S1 S2, GI: soft, normoactive bowel sounds, : No Renal angle tenderness; EXTREMITIES: Bilateral pedal edema no clubbing, MUSCULOSKELETAL: no muscle wasting NEURO: Awake; no lateralizing signs. SKIN: No Rash PSYCH; Flat affect Assessment & Plan Assessment/Plan (1) Adult failure to thrive: (2) Acidosis, lactic: (3) Pancytopenia: (4) Mantle cell lymphoma: QUALIFIERS: Lymphoma site: multiple regions Qualified Code(s): C83.18 - Mantle cell lymphoma, lymph nodes of multiple sites PLAN: Plan Patient is a 69-year-old female with history of mantle cell lymphoma who presented with worsening weakness and volume overload. 1. Mantle cell lymphoma -Had port placed with plan to initiate chemotherapy with bendamustine/rituxin on 01/25. Has had worsening weakness and volume overload presumably secondary to her cancer. CT chest abdomen pelvis on admit showed known massive splenomegaly and known diffuse retroperitoneal lymphadenopathy with worsening moderate bilateral pleural effusions and diffuse ascites. Case was discussed with oncologist Dr. Nogueira patient started prophylactically on allopurinol to decrease her risk of tumor lysis syndrome. Plan is to initiate chemo in the hospital ? 01/26/2025;Patient was started on IV fluid in anticipation of initiation of her chemo. Patient is also on allopurinol to prevent tumor lysis syndrome given the heavy burden of her tumor ? 01/27/2025 patient was started on chemotherapy with Bendamustine Rituxan on 01/26/2025. Patient LDH markedly elevated at 1066. Case discussed with oncology Dr. Nogueira ? 01/28/2025: Patient has completed her first cycle of chemotherapy. Plan is for second cycle starting 03/01/2025. Patient to call to schedule. ? 01/29/2025; patient BUN trending up restarted IV fluids. ? 01/30/2025; patient still on IV fluid BUN at 35, Slight improvement from the day prior. 3. Pancytopenia ? Malignancy related monitoring with daily CBC with differential ? 01/26/2025; with patient hemoglobin dropping to 6.6, an order was given for patient to be transfused 1 unit PRBC. ? 01/27/2025; patient hemoglobin up to 7.8 platelet count is however down to 32. Patient is on Granix ordered by oncology ? 01/28/2025; patient platelet count up to 42, Hemoglobin remains low at 8.0. Repeat CBC with differential ordered for a.m. ? 01/29/2025; patient WBC count up to 3.8, hemoglobin 8.7 and platelet count 45 ? 01/30/2025; cell counts compared to previous 3. Acute congestive heart failure ? 2D echo ordered for EF assessment. Patient CHF precipitated by volume overload. Patient has been receiving intermittent furosemide ? 01/28/2025 patient 2D echo demonstrated Normal LV size. The left ventricular ejection fraction is 65 %. Stage 1 diastolic dysfunction. Structurally normal valves. 4. Anasarca ? Related to patient significant tumor burden. Patient has been started on diuretic therapy however this was discontinued after discussion with both oncology as well as hand brim ironer given patient high risk for tumor lysis syndrome 5. Lactic acidosis ? Related to patient underlying malignancy patient symptoms not consistent with sepsis 6. Hyperuricemia ? Secondary to heavy tumor burden. Patient is on allopurinol to prevent tumor lysis syndrome in addition to IV hydration 7. Humoral hypercalcemia of malignancy ? Patient calcium level on 12/22/2024 was 12.2 down to 8.5 with treatment 8. COPD ? Not in exacerbation aerosol treatment as needed 9. Vitamin D deficiency ? Patient is on cholecalciferol supplements q. monthly 11. GERD ? Patient is on PPI 9.DVT prophylaxis ? On enoxaparin ? 01/28/2024; enoxaparin discontinued given significant drop in patient platelet counts 10. Hypophosphatemia ? Patient started on oral phosphate binders ? Patient responded to treatment will repeat phosphate levels in a.m. Time spent in the patient's overall evaluation,decision-making process, review of diagnostic data, adjustment of management, discussion with other providers, nursing nursing and ancillary staff involved in patient's care documentation, 37 Minutes Charges/Coding Visit Charges Inpatient E&M: 94293 Subs Hosp L2
[2025-01-30] MEDS: TBO-FILGRASTIM 300 MCG/0.5 ML ML SC (10:20)
[2025-01-30] MEDS: Ensure Plus High Protein 120 ML LIQUID PO ×4 (10:21→21:37)
[2025-01-30 12:27] VITALS: BP 132/77; PULSE 100; RESP 18; TEMP 36.5; O2SAT 94
[2025-01-30 21:00] VITALS: BP 120/80; PULSE 100; RESP 16; TEMP 36.7; O2SAT 94
[2025-01-31 03:00] VITALS: BP 133/78; PULSE 92; RESP 18; TEMP 36.6; O2SAT 95
[2025-01-31 03:03] VITALS: BMI 22.2
[2025-01-31 06:27] LABS: Hematocrit 27.9 % (37-47); Hemoglobin 8.5 g/dL (12.0-15.0); Immature Granulocytes Count 0.250 X10^3/uL (0.0-0.0); Mean Corp Hgb Conc 30.5 g/dL (32-36); Mean Corpuscular Volume 105.3 fL (81-99); Mean Platelet Vol. 10.9 fl (6.2-12.0); NRBC Flagged by Analyzer 0 % (0-5); POSITIVE COUNT YES; POSITIVE DIFFERENTIAL YES; POSITIVE MORPHOLOGY YES; Platelet Count 50 K/mm3 (150-450); RBC Distribution Width CV 17.7 % (11.6-14.6); RBC Distribution Width SD 67.9 fl (35.1-43.9); Red Blood Count 2.65 M/mm3 (4.2-5.4); White Blood Count 5.9 K/mm3 (4.4-11.0)
[2025-01-31 06:36] LABS: Differential Indicated SCAN CRITERIA MET
[2025-01-31 06:51] LABS: Anion Gap 7 (5-15); BUN 29 mg/dL (4-19); BUN/Creat Ratio 34.8 RATIO (10-20); Calcium,Total 9.4 mg/dL (7.6-11.0); Carbon Dioxide 26.3 mmol/L (21.0-32.0); Chloride 110 mmol/L (98-108); Estimated Creatinine Clearance 63.85 ml/min (50-250); Glucose 92 mg/dL (70-99); Potassium 4.2 mmol/L (3.3-5.1)
[2025-01-31] MEDS: 0.9% Normal Saline (1000mL) 1,000 ML 100 ML IV ×2 (06:56→16:43)
[2025-01-31 07:05] LABS: Neutrophil-Band 3 % (0-5); Neutrophil-Segmented 91 % (47-70); Total Cells Counted 100 (MANUAL DIFF)
[2025-01-31 07:06] LABS: Anisocytosis 1+
[2025-01-31 07:08] LABS: Scan Smear per Review Criteria MANUAL DIFF
[2025-01-31 07:11] LABS: Differential Comment SCANNED
[2025-01-31] MEDS: 0.9% Saline Lock 10 ML Syringe IV ×2 (07:34→16:38)
--- NOTE | 2025-01-31 07:44 | PCM.PN.HOSP ---
Reason for Visit Chief Complaint: Progressive weakness and volume overload Subjective Subjective Patient seen complains of abdominal discomfort CT of the abdomen and pelvis obtained on admission demonstrated mild splenomegaly and diffuse retroperitoneal lymphadenopathy and enlarged inguinal lymph node in addition to ascites. Objective Data Objective Data Vital Signs: Vital Signs Temp Pulse Resp BP Pulse Ox O2 Del Method O2 Flow Rate 97.9 F 92 18 133/78 H 95 Nasal Cannula 4 01/31/25 03:00 01/31/25 03:00 01/31/25 03:00 01/31/25 03:00 01/31/25 03:00 01/31/25 03:00 01/31/25 03:00 Oxygen Flow Rate (L/min) 4 Oxygen Delivery Method Nasal Cannula Weight: 64.3 kg Body Mass Index (BMI) 22.2 Intake & Output: Intake and Output for Last 24 Hours 01/29/25 01/30/25 01/31/25 23:59 23:59 23:59 Intake Total 2860 / 2860 1815 / 1815 1000 / 1000 Output Total 1550 / 1550 600 / 1200 1000 / 1000 Balance 1310 / 1310 1215 / 615 0 / 0 Lab / Micro Data 01/31/25 05:35 01/31/25 05:35 Labs: Laboratory Results - last 24 hr 01/30/25 06:20: Absolute Neuts (auto) 4.1, Absolute Lymphs (auto) Not Reportable, Total Counted 100, Neutrophils % (Manual) 91 H, Band Neutrophils % 4, Monocytes % (Manual) 1, Eosinophils % (Manual) 1, Metamyelocytes % 3 H, Nucleated RBCs/100 WBC 1, Diff Path Review May , Platelet Estimate MOD DEC, Anisocytosis 2+, Macrocytosis 1+ 01/31/25 05:35: WBC 5.9, RBC 2.65 L, Hgb 8.5 L, Hct 27.9 L, MCV 105.3 H, MCH 32.1 H, MCHC 30.5 L, RDW Std Deviation 67.9 H, RDW Coeff of Jeffery 17.7 H, Plt Count 50 L*, MPV 10.9, Immature Gran % (Auto) Not Reportable, Neut % (Auto) Not Reportable, Lymph % (Auto) Not Reportable, [place] % (Auto) Not Reportable, Eos % (Auto) Not Reportable, Baso % (Auto) Not Reportable, Absolute Neuts (auto) 5.5, Absolute Lymphs (auto) 0.00 L, Total Counted 100, Neutrophils % (Manual) 91 H, Band Neutrophils % 3, Monocytes % (Manual) 5, Metamyelocytes % 1, Nucleated RBC % 0, Differential Comment SCANNED, Platelet Estimate MOD DEC, Anisocytosis 1+, Sodium 144, Potassium 4.2, Chloride 110 H, Carbon Dioxide 26.3, Anion Gap 7, BUN 29 H, Creatinine 0.82, Estim Creat Clear Calc 63.85, Est GFR (MDRD) Non-Af 77, BUN/Creatinine Ratio 34.8 H, Glucose 92, Calcium 9.4 Micro: Microbiology 01/24/25 23:13 Blood Culture (Wb) - Anticubital Left Blood Culture - Final No growth in 5 days. 01/24/25 23:15 Blood Culture (Wb) - Anticubital Right Blood Culture - Final No growth in 5 days. 01/25/25 11:15 Urine, Clean Catch Urine Culture - Final Enterobacter cloacae complex Escherichia coli 01/25/25 11:15 Stool Stool Occult Blood ([facility]) - Final Occult Blood Positive Rhythm Strip Rhythm Strip: A-fib Rate: 108 Ectopy: - (Patient appears to be in atrial fibrillation on the monitor at bedside. Heart rate is between 98-1 14.) Physical Exam Narrative GENERAL: But frail looking HEENT: Atraumatic; normocephalic EYES; Anicteric, Normal Conjunctiva NECK; supple, normal thyroid, RESPIRATORY: Diminished to auscultation CARDIOVASCULAR: Regular S1 S2, GI: soft, normoactive bowel sounds, slight abdominal distention : No Renal angle tenderness; EXTREMITIES: Bilateral pedal edema no clubbing, MUSCULOSKELETAL: no muscle wasting NEURO: Awake; no lateralizing signs. SKIN: No Rash PSYCH; Flat affect Assessment & Plan Assessment/Plan (1) Adult failure to thrive: (2) Acidosis, lactic: (3) Pancytopenia: (4) Mantle cell lymphoma: QUALIFIERS: Lymphoma site: multiple regions Qualified Code(s): C83.18 - Mantle cell lymphoma, lymph nodes of multiple sites PLAN: Plan Patient is a 69-year-old female with history of mantle cell lymphoma who presented with worsening weakness and volume overload. 1. Mantle cell lymphoma -Had port placed with plan to initiate chemotherapy with bendamustine/rituxin on 01/25. Has had worsening weakness and volume overload presumably secondary to her cancer. CT chest abdomen pelvis on admit showed known massive splenomegaly and known diffuse retroperitoneal lymphadenopathy with worsening moderate bilateral pleural effusions and diffuse ascites. Case was discussed with oncologist Dr. Nogueira patient started prophylactically on allopurinol to decrease her risk of tumor lysis syndrome. Plan is to initiate chemo in the hospital ? 01/26/2025;Patient was started on IV fluid in anticipation of initiation of her chemo. Patient is also on allopurinol to prevent tumor lysis syndrome given the heavy burden of her tumor ? 01/27/2025 patient was started on chemotherapy with Bendamustine Rituxan on 01/26/2025. Patient LDH markedly elevated at 1066. Case discussed with oncology Dr. Nogueira ? 01/28/2025: Patient has completed her first cycle of chemotherapy. Plan is for second cycle starting 03/01/2025. Patient to call to schedule. ? 01/29/2025; patient BUN trending up restarted IV fluids. ? 01/30/2025; patient still on IV fluid BUN at 35, Slight improvement from the day prior. ? 01/31/2025; patient complaining of intense abdominal pain CT of the abdomen and pelvis ordered for subsequent eval 3. Pancytopenia ? Malignancy related monitoring with daily CBC with differential ? 01/26/2025; with patient hemoglobin dropping to 6.6, an order was given for patient to be transfused 1 unit PRBC. ? 01/27/2025; patient hemoglobin up to 7.8 platelet count is however down to 32. Patient is on Granix ordered by oncology ? 01/28/2025; patient platelet count up to 42, Hemoglobin remains low at 8.0. Repeat CBC with differential ordered for a.m. ? 01/29/2025; patient WBC count up to 3.8, hemoglobin 8.7 and platelet count 45 ? 01/30/2025; cell counts compared to previous 3. Acute congestive heart failure ? 2D echo ordered for EF assessment. Patient CHF precipitated by volume overload. Patient has been receiving intermittent furosemide ? 01/28/2025 patient 2D echo demonstrated Normal LV size. The left ventricular ejection fraction is 65 %. Stage 1 diastolic dysfunction. Structurally normal valves. 4. Anasarca ? Related to patient significant tumor burden. 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 Lactic acidosis ? Related to patient underlying malignancy patient symptoms not consistent with sepsis 6. Hyperuricemia ? Secondary to heavy tumor burden. Patient is on allopurinol to prevent tumor lysis syndrome in addition to IV hydration 7. Humoral hypercalcemia of malignancy ? Patient calcium level on 12/22/2024 was 12.2 down to 8.5 with treatment 8. COPD ? Not in exacerbation aerosol treatment as needed 9. Vitamin D deficiency ? Patient is on cholecalciferol supplements q. monthly 11. GERD ? Patient is on PPI 9.DVT prophylaxis ? On enoxaparin ? 01/28/2024; enoxaparin discontinued given significant drop in patient platelet counts 10. Hypophosphatemia ? Patient started on oral phosphate binders ? Patient responded to treatment will repeat phosphate levels in a.m. 11. Acute cystitis with Enterobacter and E. coli ? Patient remains on appropriate antibiotic therapy Time spent in the patient's overall evaluation,decision-making process, review of diagnostic data, adjustment of management, discussion with other providers, nursing nursing and ancillary staff involved in patient's care documentation, 36 Minutes Charges/Coding Visit Charges Inpatient E&M: 00532 Subs Hosp L2
[2025-01-31 08:11] VITALS: O2SAT 94
--- NOTE | 2025-01-31 08:42 | CT_ITS ---
PROCEDURE: ABDOMEN/PELVIS WITH CONTRAST 01/31/2025 REASON FOR EXAM: ABDOMINAL PAIN TECHNIQUE: Procedure Code: [id number] Modality: CT Procedure: ABDOMEN/PELVIS WITH CONTRAST Coronal and Sagittal reconstruction series were provided. CONTRAST: Isovue 370 VOLUME: 75 mL One or more dose reduction techniques were used (e.g., Automated exposure control, adjustment of the mA and/or kV according to patient size, use of iterative reconstruction technique. RADIATION DOSE SUMMARY: CTDlvol: 15.39 mGy DLP: 880.51 mGycm COMPARISON: January 24, 2025 FINDINGS: Lung bases: Bilateral pleural effusions are again noted with associated compressive atelectasis. The amount of pleural fluid may have increased slightly compared with the previous study. Liver: The liver may be slightly cirrhotic in contour. The appearance is similar to the previous study. Gallbladder: Unremarkable Spleen: Enlarged, although less so than noted on the previous study. There is again noted a 3.9 cm by 2.0 cm hypoattenuating splenic lesion on image 59, series 2, previously 4.6 cm x 2.1 cm. Pancreas: Normal size without evidence of mass surrounding inflammation or ductal dilation. Adrenals: Unremarkable Kidneys: There is mild persistent dilatation of the right renal pelvis and caliceal system, minimally improved compared with the previous study. Nonobstructing lower pole calculi are again noted on the right. Bladder: Unremarkable Reproductive Organs: Unremarkable Bowel: No bowel obstruction. Moderate amount of colonic stool. Appendix: Unremarkable Lymph nodes: No adenopathy noted. Vasculature: Atherosclerotic aortoiliac calcifications are again noted. Peritoneum / Retroperitoneum: The appearance of the pelvic organs and lack of urinary bladder wall definition suggests there are intra-abdominal ascites present although the attenuation is very similar to the overlying abdominal wall with Hounsfield units of 10. This is of uncertain significance. There is a very small amount of free air in the abdomen anteriorly on image 43, series 2. This is of uncertain etiology. It was not definitively present on the previous study. I do not see definitely abnormal bowel elsewhere in the abdomen or pelvis. Bones: Degenerative spinal change is noted with most pronounced disc disease at L2-L3 and L4-L5. CT/Abdomen/Pelvis WITH Contrast IMPRESSION: Larger pleural effusions and compressive atelectasis compared with the previous study. Similar right renal collecting system dilatation and nonobstructing calculi. Probable large volume intra-abdominal ascites although the attenuation is very similar to abdominal wall fat. I question whether there is extensive abdominal wall edema which may explain this finding. There are a few small locules of free air noted in the abdomen anteriorly which is of uncertain significance. I do not see a definite source. Correlate clinically. Given the abdominal pain, surgical con sultation is recommended. I have requested to speak with the referring clinical service regarding this finding. Reading Location: [facility]
[2025-01-31 09:03] VITALS: BP 136/69; PULSE 97; RESP 17; TEMP 36.8; O2SAT 94
[2025-01-31] MEDS: TBO-FILGRASTIM 300 MCG/0.5 ML ML SC (10:07)
--- NOTE | 2025-01-31 14:39 | EX.PCM.CON.S ---
Assessment & Plan Assessment/Plan (1) Pneumoperitoneum: PLAN: Patient is a 69-year-old female admitted for severe lactic acidosis related to recent diagnosis of mantle cell lymphoma and has begun inpatient chemotherapy. According to her, her diagnosis came about due to progressive abdominal symptoms which largely centered around an uncomfortable abdominal distention. Past radiologic studies have shown progressive accumulation of moderate to large volume abdominopelvic ascites. It does not appear patient has undergone diagnostic paracentesis. In my evaluation the patient she has marked abdominal distention but no peritoneal signs. Her abdominal exam was conducted well simultaneously reviewing her CT imaging performed earlier today. I have noted on her CT imaging that her abdominal wall is markedly thickened due to her abdominal distention and measures just 3 mm thick particularly in the inferior regions. Given her benign exam I am suspicious that her pneumoperitoneum may have been introduced at the time of unintended subcutaneous injection as patient is receiving Granix injections to her abdominal wall. I have been candid with patient stating that usual source for pneumoperitoneum is related to some perforated viscus but that I would not be in favor of a diagnostic laparoscopy or other exploratory surgery given her benign exam and the substantial risk we would take and proceeding to the OR with her concurrent chemotherapy, thrombocytopenia, significant ascites, and otherwise frail state. I introduced case specific risks of persistent ascitic leak, spontaneous bacterial peritonitis, hemorrhage,... And lieu of proceeding for exploratory surgery I we will plan for serial abdominal exams and have asked patient to assume a strict n.p.o. status for 24 hours. I have asked nursing to avoid any further injections to the abdominal wall and requested that we defer any paracentesis procedures for at least another couple of days so as not to confound a finding of pneumoperitoneum should need to reimage patient. Lastly, I requested an updated lactic acid level which was reviewed and normal at 1.2. Will continue to follow and thank you for the opportunity to participate in this Zhanna's care. Braeden Lou MD General Surgery Endocrine Surgery Pager: [facility] [address] [place] [address], [address] [place] [id number] Office: [phone] HPI Consult Data Date of Consult: 01/31/25 HPI Narrative Reason for Consultation: Pneumoperitoneum HPI Narrative: ESTELLA MIRELES, is a 69 F who has been admitted to the hospitalist service since 01/25/2025 related to severe lactic acidosis and recent diagnosis of mantle cell lymphoma. Her lactic acidosis was felt to be related to poor clearance and she was began on chemotherapy with plans for imminent discharge when she underwent CT imaging of the abdomen and pelvis secondary to complaints of abdominal discomfort and progressive abdominal distention. CT imaging showed evidence of a small amount of free air of uncertain etiology, however, radiology recommended consider surgical consultation given patient's complaints of abdominal pain. This occasionally consult to me. On my evaluation, patient states that she has had progressive abdominal distention but that her pain is not necessarily worse today than it has been for the last several days. She describes more of a general discomfort and inability to get up and even see about her distended abdomen then any sharp pain. She also reports that she has been moving her bowels daily and without any significant difficulty. She denies, and hospitalist confirms, that there have been no recent diagnostic abdominal procedure. She does report that she has been receiving injections to her abdominal wall on a daily basis. This was confirmed by bedside nursing. [facility] Medical History Wears glasses Cancer History of renal disease Heartburn Gastric reflux Former smoker History of edema Hypokalemia Encounter for education 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 Depression Emphysema lung COPD (chronic obstructive pulmonary disease) Postmenopausal IBS (irritable bowel syndrome) Positive colorectal cancer screening using Cologuard test Anemia Acute distention of stomach Abdominal pain Hypertension Vitamin D deficiency Splenomegaly Home Medications ?Medication ?Instructions ?Recorded ?Last Taken ?Type cholecalciferol (vitamin D3) 1,250 1,250 mcg PO [facility] 11/26/24 01/19/25 History mcg (50,000 unit) capsule vitamin B complex 1 tab PO QDAY FOR ENERGY 11/26/24 01/19/25 History mv-mn [id number] 1 tab PO DAILY SUPPLEMENT 12/07/24 01/19/25 History pantoprazole 40 mg tablet,delayed 40 mg PO DAILY STOMACH 12/07/24 12/06/24 History release allopurinol 300 mg tablet 300 mg PO QDAY #7 tabs 01/14/25 Unknown Rx lidocaine-prilocaine 2.5 %-2.5 % 1 applic topical ONCE PRN port 01/14/25 Unknown Rx topical cream access 30 days #30 grams ondansetron 8 mg disintegrating 8 mg PO Q8H PRN nausea and 01/14/25 Unknown Rx tablet vomiting #30 tabs potassium chloride 20 mEq 20 meq PO DAILY #3 tabs 01/14/25 01/19/25 Rx tablet,extended release(part/cryst) tramadol 50 mg tablet 50 mg PO Q6H PRN pain 2 days #5 01/21/25 Unknown Rx tabs Allergy/AdvReac Type Severity Reaction Status Date / Time moxifloxacin (From Avelox) Allergy Unknown unknown Verified 01/24/25 15:27 terbinafine Allergy Unknown rash Verified 01/24/25 15:27 Family History Father Alcohol abuse Mother Heart disease Depression Surgical History History of dental surgery Social History Smoking Status: Former smoker Tobacco: How many years used: 50 alcohol intake: never substance use type: does not use Physical Exam Const Constitutional Narrative: Drowsy from recently awakening from a nap but otherwise appropriate GI GI Narrative: Attenuated and edematous appearing abdominal wall tissue. There are no external signs of trauma but patient's umbilicus has begun to radha and is located somewhat more cephalad than expected. Abdomen is markedly distended but soft and not particularly tender to palpation (there are no peritoneal signs). Lab / Micro Data 01/31/25 05:35 01/31/25 05:35 Labs: Laboratory Results - last 24 hr 01/31/25 05:35: WBC 5.9, RBC 2.65 L, Hgb 8.5 L, Hct 27.9 L, MCV 105.3 H, MCH 32.1 H, MCHC 30.5 L, RDW Std Deviation 67.9 H, RDW Coeff of Jeffery 17.7 H, Plt Count 50 L*, MPV 10.9, Immature Gran % (Auto) Not Reportable, Neut % (Auto) Not Reportable, Lymph % (Auto) Not Reportable, [place] % (Auto) Not Reportable, Eos % (Auto) Not Reportable, Baso % (Auto) Not Reportable, Absolute Neuts (auto) 5.5, Absolute Lymphs (auto) 0.00 L, Total Counted 100, Neutrophils % (Manual) 91 H, Band Neutrophils % 3, Monocytes % (Manual) 5, Metamyelocytes % 1, Nucleated RBC % 0, Differential Comment SCANNED, Platelet Estimate MOD DEC, Anisocytosis 1+, Sodium 144, Potassium 4.2, Chloride 110 H, Carbon Dioxide 26.3, Anion Gap 7, BUN 29 H, Creatinine 0.82, Estim Creat Clear Calc 63.85, Est GFR (MDRD) Non-Af 77, BUN/Creatinine Ratio 34.8 H, Glucose 92, Calcium 9.4 01/31/25 13:50: Lactic Acid 1.2 Rhythm Strip Rhythm Strip: A-fib Rate: 108 Ectopy: - (Patient appears to be in atrial fibrillation on the monitor at bedside. Heart rate is between 98-1 14.) Imaging Radiology Impression Abdomen/Pelvis CT 01/31/25 08:42 IMPRESSION: Larger pleural effusions and compressive atelectasis compared with the previous study. Similar right renal collecting system dilatation and nonobstructing calculi. Probable large volume intra-abdominal ascites although the attenuation is very similar to abdominal wall fat. I question whether there is extensive abdominal wall edema which may explain this finding. There are a few small locules of free air noted in the abdomen anteriorly which is of uncertain significance. I do not see a definite source. Correlate clinically. Given the abdominal pain, surgical consultation is recommended. I have requested to speak with the referring clinical service regarding this finding. Reading [facility] Charges/Coding Visit Charges Inpatient E&M: 45446 Init Hosp L2
[2025-01-31 16:14] VITALS: BP 118/65; PULSE 100; RESP 16; TEMP 36.6; O2SAT 91
[2025-01-31 20:15] VITALS: BP 123/72; PULSE 105; RESP 20; TEMP 36.3; O2SAT 90
[2025-02-01] VITALS (8 sets, daily range): BP systolic 120–131; BP diastolic 67–73; PULSE 87–106; RESP 16–18; TEMP 36.3–36.9; O2SAT 90–94; BMI 22.8
[2025-02-01] MEDS: 0.9% Saline Lock 10 ML Syringe IV ×3 (02:03→17:08)
[2025-02-01] MEDS: 0.9% Normal Saline (1000mL) 1,000 ML 100 ML IV ×2 (06:04→17:07)
[2025-02-01 06:20] LABS: Hematocrit 30.6 % (37-47); Hemoglobin 9.3 g/dL (12.0-15.0); Immature Granulocytes Count 0.120 X10^3/uL (0.0-0.0); Mean Corp Hgb Conc 30.4 g/dL (32-36); Mean Corpuscular Volume 106.3 fL (81-99); Mean Platelet Vol. 11.1 fl (6.2-12.0); NRBC Flagged by Analyzer 0 % (0-5); POSITIVE COUNT YES; POSITIVE DIFFERENTIAL YES; POSITIVE MORPHOLOGY YES; Platelet Count 83 K/mm3 (150-450); RBC Distribution Width CV 17.5 % (11.6-14.6); RBC Distribution Width SD 67.5 fl (35.1-43.9); Red Blood Count 2.88 M/mm3 (4.2-5.4); White Blood Count 10.9 K/mm3 (4.4-11.0)
[2025-02-01 06:44] LABS: Differential Indicated SCAN CRITERIA MET
[2025-02-01 06:45] LABS: LDH 326 U/L (84-246)
[2025-02-01 06:47] LABS: Anion Gap 6 (5-15); BUN 23 mg/dL (4-19); BUN/Creat Ratio 32.1 RATIO (10-20); Calcium,Total 8.7 mg/dL (7.6-11.0); Carbon Dioxide 26.6 mmol/L (21.0-32.0); Chloride 109 mmol/L (98-108); Estimated Creatinine Clearance 65.45 ml/min (50-250); Glucose 89 mg/dL (70-99); Magnesium 2.2 mg/dL (1.5-2.2); Potassium 4.2 mmol/L (3.3-5.1)
[2025-02-01 06:50] LABS: Differential Comment SCANNED
[2025-02-01 06:51] LABS: Anisocytosis 1+
--- NOTE | 2025-02-01 07:34 | PCM.PN.HOSP ---
Reason for Visit Chief Complaint: Progressive weakness and volume overload Subjective Subjective CT of the abdomen and pelvis obtained the day prior was questionable for few locules of free air in the abdomen anteriorly of uncertain significance. Consult placed to general surgery. Objective Data Objective Data Vital Signs: Vital Signs Temp Pulse Resp BP Pulse Ox O2 Del Method O2 Flow Rate 97.3 F L 105 H 20 H 123/72 H 90 Nasal Cannula 4 01/31/25 20:15 01/31/25 20:15 01/31/25 20:15 01/31/25 20:15 01/31/25 20:15 01/31/25 22:00 01/31/25 22:00 Oxygen Flow Rate (L/min) 4 Oxygen Delivery Method Nasal Cannula Weight: 66.1 kg Body Mass Index (BMI) 22.8 Intake & Output: Intake and Output for Last 24 Hours 01/30/25 01/31/25 02/01/25 23:59 23:59 23:59 Intake Total 1815 / 1815 3178.33 / 3178.33 1000 / 1000 Output Total 600 / 1200 1300 / 1900 600 / 600 Balance 1215 / 615 1878.33 / 1278.33 400 / 400 Lab / Micro Data 02/01/25 05:55 02/01/25 05:55 Labs: Laboratory Results - last 24 hr 01/31/25 13:50: Lactic Acid 1.2 02/01/25 05:55: WBC 10.9, RBC 2.88 L, Hgb 9.3 L, Hct 30.6 L, MCV 106.3 H, MCH 32.3 H, MCHC 30.4 L, RDW Std Deviation 67.5 H, RDW Coeff of Jeffery 17.5 H, Plt Count 83 L, MPV 11.1, Immature Gran % (Auto) 1.100 H, Neut % (Auto) 92.1 H, Lymph % (Auto) 0.4 L, [facility] % (Auto) 5.3, Eos % (Auto) 0.4, Baso % (Auto) 0.7, Absolute Neuts (auto) 10.1 H, Absolute Lymphs (auto) 0.04 L, Nucleated RBC % 0, Differential Comment SCANNED, Anisocytosis 1+, Sodium 142, Potassium 4.2, Chloride 109 H, Carbon Dioxide 26.6, Anion Gap 6, BUN 23 H, Creatinine 0.73, Estim Creat Clear Calc 65.45, Est GFR (MDRD) Non-Af 90, BUN/Creatinine Ratio 32.1 H, Glucose 89, Calcium 8.7, Phosphorus 3.5, Magnesium 2.2, Lactate Dehydrogenase 326 H Micro: Microbiology 01/24/25 23:13 Blood Culture (Wb) - Anticubital Left Blood Culture - Final No growth in 5 days. 01/24/25 23:15 Blood Culture (Wb) - Anticubital Right Blood Culture - Final No growth in 5 days. 01/25/25 11:15 Urine, Clean Catch Urine Culture - Final Enterobacter cloacae complex Escherichia coli 01/25/25 11:15 Stool Stool Occult Blood ([facility]) - Final Occult Blood Positive Radiography Diagnostic Testing: Radiology Impression Abdomen/Pelvis CT 01/31/25 08:42 IMPRESSION: Larger pleural effusions and compressive atelectasis compared with the previous study. Similar right renal collecting system dilatation and nonobstructing calculi. Probable large volume intra-abdominal ascites although the attenuation is very similar to abdominal wall fat. I question whether there is extensive abdominal wall edema which may explain this finding. There are a few small locules of free air noted in the abdomen anteriorly which is of uncertain significance. I do not see a definite source. Correlate clinically. Given the abdominal pain, surgical consultation is recommended. I have requested to speak with the referring clinical service regarding this finding. Reading Location: [facility] Rhythm Strip Rhythm Strip: A-fib Rate: 108 Ectopy: - (Patient appears to be in atrial fibrillation on the monitor at bedside. Heart rate is between 98-1 14.) Physical Exam Narrative GENERAL: But frail looking HEENT: Atraumatic; normocephalic EYES; Anicteric, Normal Conjunctiva NECK; supple, normal thyroid, RESPIRATORY: Diminished to auscultation CARDIOVASCULAR: Regular S1 S2, GI: soft, normoactive bowel sounds, slight abdominal distention : No Renal angle tenderness; EXTREMITIES: Bilateral pedal edema no clubbing, MUSCULOSKELETAL: no muscle wasting NEURO: Awake; no lateralizing signs. SKIN: No Rash PSYCH; Flat affect Assessment & Plan Assessment/Plan (1) Adult failure to thrive: (2) Acidosis, lactic: (3) Pancytopenia: (4) Mantle cell lymphoma: QUALIFIERS: Lymphoma site: multiple regions Qualified Code(s): C83.18 - Mantle cell lymphoma, lymph nodes of multiple sites PLAN: Plan Patient is a 69-year-old female with history of mantle cell lymphoma who presented with worsening weakness and volume overload. 1. Mantle cell lymphoma -Had port placed with plan to initiate chemotherapy with bendamustine/rituxin on 01/25. Has had worsening weakness and volume overload presumably secondary to her cancer. CT chest abdomen pelvis on admit showed known massive splenomegaly and known diffuse retroperitoneal lymphadenopathy with worsening moderate bilateral pleural effusions and diffuse ascites. Case was discussed with oncologist Dr. Nogueira patient started prophylactically on allopurinol to decrease her risk of tumor lysis syndrome. Plan is to initiate chemo in the hospital ? 01/26/2025;Patient was started on IV fluid in anticipation of initiation of her chemo. Patient is also on allopurinol to prevent tumor lysis syndrome given the heavy burden of her tumor ? 01/27/2025 patient was started on chemotherapy with Bendamustine Rituxan on 01/26/2025. Patient LDH markedly elevated at 1066. Case discussed with oncology Dr. Nogueira ? 01/28/2025: Patient has completed her first cycle of chemotherapy. Plan is for second cycle starting 03/01/2025. Patient to call to schedule. ? 01/29/2025; patient BUN trending up restarted IV fluids. ? 01/30/2025; patient still on IV fluid BUN at 35, Slight improvement from the day prior. ? 01/31/2025; patient complaining of intense abdominal pain CT of the abdomen and pelvis ordered for subsequent eval 3. Pancytopenia ? Malignancy related monitoring with daily CBC with differential ? 01/26/2025; with patient hemoglobin dropping to 6.6, an order was given for patient to be transfused 1 unit PRBC. ? 01/27/2025; patient hemoglobin up to 7.8 platelet count is however down to 32. Patient is on Granix ordered by oncology ? 01/28/2025; patient platelet count up to 42, Hemoglobin remains low at 8.0. Repeat CBC with differential ordered for a.m. ? 01/29/2025; patient WBC count up to 3.8, hemoglobin 8.7 and platelet count 45 ? 01/30/2025; cell counts compared to previous 3. Acute on chronic congestive heart failure with preserved ejection ? 2D echo ordered for EF assessment. Patient CHF precipitated by volume overload. Patient has been receiving intermittent furosemide ? 01/28/2025 patient 2D echo demonstrated Normal LV size. The left ventricular ejection fraction is 65 %. Stage 1 diastolic dysfunction. Structurally normal valves. ? 02/01/2025; patient has been managed intermittently with diuretic therapy 4. Anasarca ? Related to patient significant tumor burden. 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 Lactic acidosis ? Related to patient underlying malignancy patient symptoms not consistent with sepsis 6. Hyperuricemia ? Secondary to heavy tumor burden. Patient is on allopurinol to prevent tumor lysis syndrome in addition to IV hydration 7. Humoral hypercalcemia of malignancy ? Patient calcium level on 12/22/2024 was 12.2 down to 8.5 with treatment 8. COPD ? Not in exacerbation aerosol treatment as needed 9. Vitamin D deficiency ? Patient is on cholecalciferol supplements q. monthly 11. GERD ? Patient is on PPI 9.DVT prophylaxis ? On enoxaparin ? 01/28/2024; enoxaparin discontinued given significant drop in patient platelet counts 10. Hypophosphatemia ? Patient started on oral phosphate binders ? Patient responded to treatment will repeat phosphate levels in a.m. 11. Acute cystitis with Enterobacter and E. coli ? Patient remains on appropriate antibiotic therapy 12. Abdominal pain ? Ordered CT of the abdomen and pelvis with oral contrast findings included 02/01/2025 larger pleural effusions and compressive atelectasis compared with the previous study. Similar right renal collecting system dilatation and nonobstructing calculi. Probable large volume intra-abdominal ascites There are a few small locules of free air noted in the abdomen anteriorly which is of uncertain significance. Based on above consult was placed to general surgery case discussed with Dr. Lou. Patient was kept n.p.o. with plans to repeat imaging studies 13. Ascites ? Plan is for patient to undergo ultrasound-guided paracentesis, With body fluid analysis and 14. Bilateral pleural effusion ? Plan is for patient to undergo ultrasound-guided thoracocentesis with body fluid analysis sent Time spent in the patient's overall evaluation,decision-making process, review of diagnostic data, adjustment of management, discussion with other providers, nursing nursing and ancillary staff involved in patient's care documentation,50 Minutes Charges/Coding Visit Charges Inpatient E&M: 85405 Subs Hosp L3
--- NOTE | 2025-02-01 08:42 | CT_ITS ---
PROCEDURE: ABDOMEN/PELVIS W IV CONT ONLY 02/01/2025 REASON FOR EXAM: PNEUMOPERITONEUM TECHNIQUE: Procedure Code: [id number] Modality: CT Procedure: ABDOMEN/PELVIS W IV CONT ONLY Coronal and Sagittal reconstruction series were provided. CONTRAST: Isovue 370 VOLUME: 75 mL One or more dose reduction techniques were used (e.g., Automated exposure control, adjustment of the mA and/or kV according to patient size, use of iterative reconstruction technique. RADIATION DOSE SUMMARY: CTDlvol: 12.27 mGy DLP: 685.92 mGycm COMPARISON: CT abdomen and pelvis January 04, 2025. FINDINGS: Lung bases: Large pleural effusion with atelectasis. Liver: Large hepatomegaly with the liver measures 17.5 cm in length. Gallbladder: Distended. Spleen: Stable splenomegaly with the liver measures 17.8 cm in length. Stable defect at the lower of spleen. Pancreas: Unremarkable. Adrenals: Unremarkable. Kidneys: Multiple stones with the largest measures 8 mm at the lower pole of the right kidney. Stable mild right hydronephrosis. No left hydronephrosis. Bladder: Unremarkable. Reproductive Organs: Unremarkable. Bowel: No bowel wall thickening. No bowel obstruction. Appendix: No evidence of acute appendicitis. Lymph nodes: No lymphadenopathy. Vasculature: No aneurysm. Atherosclerotic calcifications of the aorta. Peritoneum / Retroperitoneum: Large amount of ascites in the abdomen and pelvis. Bones: No acute bony abnormalities. Multilevel degenerate changes of the lumbar spine. CT/Abdomen/Pelvis W IV Cont ONLY IMPRESSION: Resolution of the previously seen pneumoperitoneum. Hepatosplenomegaly. Large amount of ascites in the abdomen and pelvis. Large pleural effusion with atelectasis. Reading Location: [facility]
--- NOTE | 2025-02-01 08:49 | PCM.PN.SRG ---
Subjective Subjective Patient evaluated resting comfortably in bed. She denies any current abdominal pain. She mentions she recently had morphine for pain. Objective Data Objective Data Vital Signs: Vital Signs Temp Pulse Resp BP Pulse Ox O2 Del Method O2 Flow Rate 97.3 F L 105 H 20 H 123/72 H 90 Nasal Cannula 4 01/31/25 20:15 01/31/25 20:15 01/31/25 20:15 01/31/25 20:15 02/01/25 08:05 02/01/25 08:05 02/01/25 08:05 Oxygen Flow Rate (L/min) 4 Oxygen Delivery Method Nasal Cannula Weight: 145 lb 11.609 oz Body Mass Index (BMI) 22.8 Intake & Output: Intake and Output for Last 24 Hours 01/30/25 01/31/25 02/01/25 23:59 23:59 23:59 Intake Total 1815 / 1815 3178.33 / 3178.33 1000 / 1000 Output Total 600 / 1200 1300 / 1900 600 / 600 Balance 1215 / 615 1878.33 / 1278.33 400 / 400 Lab / Micro Data 02/01/25 05:55 02/01/25 05:55 Labs: Laboratory Results - last 24 hr 01/31/25 13:50: Lactic Acid 1.2 02/01/25 05:55: WBC 10.9, RBC 2.88 L, Hgb 9.3 L, Hct 30.6 L, MCV 106.3 H, MCH 32.3 H, MCHC 30.4 L, RDW Std Deviation 67.5 H, RDW Coeff of Jeffery 17.5 H, Plt Count 83 L, MPV 11.1, Immature Gran % (Auto) 1.100 H, Neut % (Auto) 92.1 H, Lymph % (Auto) 0.4 L, Amador % (Auto) 5.3, Eos % (Auto) 0.4, Baso % (Auto) 0.7, Absolute Neuts (auto) 10.1 H, Absolute Lymphs (auto) 0.04 L, Nucleated RBC % 0, Differential Comment SCANNED, Anisocytosis 1+, Sodium 142, Potassium 4.2, Chloride 109 H, Carbon Dioxide 26.6, Anion Gap 6, BUN 23 H, Creatinine 0.73, Estim Creat Clear Calc 65.45, Est GFR (MDRD) Non-Af 90, BUN/Creatinine Ratio 32.1 H, Glucose 89, Calcium 8.7, Phosphorus 3.5, Magnesium 2.2, Lactate Dehydrogenase 326 H Micro: Microbiology 01/24/25 23:13 Blood Culture (Wb) - Anticubital Left Blood Culture - Final No growth in 5 days. 01/24/25 23:15 Blood Culture (Wb) - Anticubital Right Blood Culture - Final No growth in 5 days. 01/25/25 11:15 Urine, Clean Catch Urine Culture - Final Enterobacter cloacae complex Escherichia coli 01/25/25 11:15 Stool Stool Occult Blood ([facility]) - Final Occult Blood Positive Radiography Diagnostic Testing: Radiology Impression Abdomen/Pelvis CT 01/31/25 08:42 IMPRESSION: Larger pleural effusions and compressive atelectasis compared with the previous study. Similar right renal collecting system dilatation and nonobstructing calculi. Probable large volume intra-abdominal ascites although the attenuation is very similar to abdominal wall fat. I question whether there is extensive abdominal wall edema which may explain this finding. There are a few small locules of free air noted in the abdomen anteriorly which is of uncertain significance. I do not see a definite source. Correlate clinically. Given the abdominal pain, surgical consultation is recommended. I have requested to speak with the referring clinical service regarding this finding. Reading Location: [facility] Rhythm Strip Rhythm Strip: A-fib Rate: 108 Ectopy: - (Patient appears to be in atrial fibrillation on the monitor at bedside. Heart rate is between 98-1 14.) Physical Exam GI GI Narrative: Abdomen- soft, distended, nontender Assessment & Plan Assessment/Plan (1) Pneumoperitoneum: PLAN: Plan I am following this patient in conjunction with Dr. Luo. He has independently evaluated this patient. Plan to obtain a CT ab/pel with IV only contrast to reassess pneumoperitoneum Once CT is reviewed, paracentesis may be completed as earlier as tomorrow We will continue patient NPO until after the CT is reviewed today We will continue to monitor this patient No surgical intervention is planned at this time. Charges/Coding Visit Charges Inpatient E&M: 74780 Subs Hosp L2
[2025-02-01] MEDS: TBO-FILGRASTIM 300 MCG/0.5 ML ML SC (08:54)
--- NOTE | 2025-02-01 14:52 | CHAPLAIN ---
Type of Pastoral Visit _x__ Initial Visit ___ Follow-up Visit ___ On-call Visit ___ General Patient Visit ___ Spiritual Assessment ___ Family Conference ___ Bereavement ___ Rapid Response ___ Code Blue ___ Other (describe below) Pastoral Care Referral From _x__ Patient ___ Family ___ Nurse ___ Physician ___ Technology Applications Teacher ___ Fish Filleter ___ Other (describe below) Sacrament/Intervention _x__ Active listening ___ Anointing ___ Jewish ___ Bereavement ___ Communion _x__ Nalini exploration ___ _x__ Life review _x__ Prayer ___ Reconciliation ___ Sacrament of Sick _x__ Supportive presence ___ Wedding ___ Other (describe below) Pastoral Comments
--- NOTE | 2025-02-01 15:12 | CASEMGMT ---
Social Work SW spoke with the patient and informed her that she has been accepted at TCU and she can DC there when she is medically ready. Patient was agreeable with DC to TCU. VALENTIN Crow
[2025-02-01 17:50] LABS: Albumin, Serum 2.4 g/dL (3.4-4.8)
[2025-02-02] MEDS: 0.9% Normal Saline (1000mL) 1,000 ML 100 ML IV ×3 (02:47→22:02)
[2025-02-02 03:36] LABS: Hematocrit 27.6 % (37-47); Hemoglobin 8.4 g/dL (12.0-15.0); Immature Granulocytes Count 0.120 X10^3/uL (0.0-0.0); Mean Corp Hgb Conc 30.4 g/dL (32-36); Mean Corpuscular Volume 106.2 fL (81-99); Mean Platelet Vol. 10.5 fl (6.2-12.0); NRBC Flagged by Analyzer 0 % (0-5); POSITIVE DIFFERENTIAL YES; POSITIVE MORPHOLOGY YES; Platelet Count 108 K/mm3 (150-450); RBC Distribution Width CV 17.5 % (11.6-14.6); RBC Distribution Width SD 67.7 fl (35.1-43.9); Red Blood Count 2.60 M/mm3 (4.2-5.4); White Blood Count 16.0 K/mm3 (4.4-11.0)
[2025-02-02 03:45] LABS: Differential Indicated SCAN CRITERIA MET
[2025-02-02 03:49] LABS: Prothrombin Time (Protime)PT. 14.4 SECONDS (11.7-14.9)
[2025-02-02 03:50] LABS: Partial Thromboplast Time 37.4 Seconds (24.1-36.2)
[2025-02-02 04:09] LABS: Anisocytosis 1+
[2025-02-02 04:11] LABS: Magnesium 2.1 mg/dL (1.5-2.2)
[2025-02-02 04:46] VITALS: BP 117/60; PULSE 92; RESP 18; TEMP 36.6; O2SAT 92
[2025-02-02 05:32] VITALS: BMI 23.2
[2025-02-02 06:34] VITALS: BP 115/68; PULSE 82; RESP 18; TEMP 36.3; O2SAT 96
[2025-02-02 06:52] VITALS: O2SAT 94
--- NOTE | 2025-02-02 07:00 | US_ITS ---
PROCEDURE: PARACENTESIS WITH US 02/03/2025 REASON FOR EXAM: ASCITES TECHNIQUE: PARACENTESIS WITH US. The procedure as well as the benefits and possible complications including infection and bleeding were explained to the patient. Informed consent was obtained. The overlying skin in the mid lower abdomen was prepped and draped in the usual sterile fashion. Following local anesthetic application, a 5 Korean catheter was placed into the abdomen. 2700 mL of blood tinged fluid was aspirated. A 100 mL sample was sent to the laboratory for analysis. COMPARISON: None FINDINGS: Successful ultrasound-guided paracentesis. US/Paracentesis with US IMPRESSION: Successful ultrasound-guided paracentesis. No immediate complication noted. T he patient tolerated the procedure well. Reading Location: [place] [id number]
--- NOTE | 2025-02-02 07:00 | US_ITS ---
PROCEDURE: THORACENTESIS W US 02/03/2025 REASON FOR EXAM: JENNIFER PLEURAL EFFUSION TECHNIQUE: THORACENTESIS W US. The procedure as well as the benefits and possible complications including infection and bleeding were explained to the patient. Informed consent was obtained. The overlying skin was prepped and draped in the usual sterile fashion. Following local anesthetic application and under direct sonographic guidance, a 5 Georgian catheter was placed into the right thoracic space. 1590 cc of yandel colored fluid was aspirated. A 100 mL sample was sent to the laboratory. Patient. COMPARISON: None FINDINGS: Successful ultrasound-guided right thoracentesis. US/Thoracentesis W US IMPRESSION: Successful ultrasound-guided right thoracentesis with removal of 1590 mL of amb er colored fluid. A 100 mL sample was sent to the laboratory for analysis. The patient tolerated the procedure well. No immediate complication noted. Reading Location: [place] [id number]
[2025-02-02] MEDS: 0.9% Saline Lock 10 ML Syringe IV ×3 (07:55→17:24)
--- NOTE | 2025-02-02 08:10 | PCM.PN.SRG ---
Subjective Subjective Patient evaluated resting comfortably in bed. She tolerated clear liquids okay. She noted an upset stomach over night, however she does not feel this was related to the clear liquids. Objective Data Objective Data Vital Signs: Vital Signs Temp Pulse Resp BP Pulse Ox O2 Del Method O2 Flow Rate 97.4 F L 82 18 115/68 96 Nasal Cannula 6 02/02/25 06:34 02/02/25 06:34 02/02/25 06:34 02/02/25 06:34 02/02/25 06:34 02/02/25 06:34 02/02/25 06:34 Oxygen Flow Rate (L/min) 6 Oxygen Delivery Method Nasal Cannula Weight: 148 lb 2.41 oz Body Mass Index (BMI) 23.2 Intake & Output: Intake and Output for Last 24 Hours 01/31/25 02/01/25 02/02/25 23:59 23:59 23:59 Intake Total 3178.33 / 3178.33 2320 / 2520 1226.67 / 1226.67 Output Total 1300 / 1900 2150 / 2450 300 / 300 Balance 1878.33 / 1278.33 170 / 70 926.67 / 926.67 Lab / Micro Data 02/02/25 03:24 02/01/25 05:55 Labs: Laboratory Results - last 24 hr 02/01/25 05:55: Albumin 2.4 L 02/02/25 03:24: WBC 16.0 H, RBC 2.60 L, Hgb 8.4 L, Hct 27.6 L, MCV 106.2 H, MCH 32.3 H, MCHC 30.4 L, RDW Std Deviation 67.7 H, RDW Coeff of Jeffery 17.5 H, Plt Count 108 L, MPV 10.5, Immature Gran % (Auto) 0.700, Neut % (Auto) 94.0 H, Lymph % (Auto) 0.2 L, Waldo % (Auto) 4.1, Eos % (Auto) 0.6, Baso % (Auto) 0.4, Absolute Neuts (auto) 15.1 H, Absolute Lymphs (auto) 0.04 L, Nucleated RBC % 0, Anisocytosis 1+, PT 14.4, INR 1.1, APTT 37.4 H, Phosphorus 3.4, Magnesium 2.1 Micro: Microbiology 01/24/25 23:13 Blood Culture (Wb) - Anticubital Left Blood Culture - Final No growth in 5 days. 01/24/25 23:15 Blood Culture (Wb) - Anticubital Right Blood Culture - Final No growth in 5 days. 01/25/25 11:15 Urine, Clean Catch Urine Culture - Final Enterobacter cloacae complex Escherichia coli 01/25/25 11:15 Stool Stool Occult Blood ([facility]) - Final Occult Blood Positive Radiography Diagnostic Testing: Radiology Impression Abdomen/Pelvis CT 02/01/25 08:42 IMPRESSION: Resolution of the previously seen pneumoperitoneum. Hepatosplenomegaly. Large amount of ascites in the abdomen and pelvis. Large pleural effusion with atelectasis. Reading Location: [id number] Rhythm Strip Rhythm Strip: A-fib Rate: 108 Ectopy: - (Patient appears to be in atrial fibrillation on the monitor at bedside. Heart rate is between 98-1 14.) Physical Exam GI GI Narrative: Abdomen- soft, nontender. Assessment & Plan Assessment/Plan (1) Pneumoperitoneum: PLAN: I am following this patient in conjunction with Dr. Lou. he will independently evaluate this patient. CT ab/pel completed yesterday which demonstrated resolution of pneumoperitoneum Started patient on clears yesterday and tolerated well Patient notes she is scheduled for a procedure today She is able to be restarted on a regular diet following the procedures No further surgical intervention is being recommended at this time We will sign off If new concerns arise, please re-consult our service. Thank you for allowing us to participate in this patient's care. Charges/Coding Visit Charges Inpatient E&M: 53733 Subs Hosp L2
--- NOTE | 2025-02-02 09:03 | PCM.PN.HOSP ---
Reason for Visit Chief Complaint: Progressive weakness and volume overload Subjective Subjective Patient seen started on diuretic therapy the day prior, patient report significant response to the diuretic therapy. Plan was for patient to have undergone both thoracentesis as well as paracentesis however this has been postponed to 04/15/2022. Objective Data Objective Data Vital Signs: Vital Signs Temp Pulse Resp BP Pulse Ox O2 Del Method O2 Flow Rate 97.4 F L 82 18 115/68 96 Nasal Cannula 5 02/02/25 06:34 02/02/25 06:34 02/02/25 06:34 02/02/25 06:34 02/02/25 06:34 02/02/25 08:02 02/02/25 08:02 Oxygen Flow Rate (L/min) 5 Oxygen Delivery Method Nasal Cannula Weight: 67.2 kg Body Mass Index (BMI) 23.2 Intake & Output: Intake and Output for Last 24 Hours 01/31/25 02/01/25 02/02/25 23:59 23:59 23:59 Intake Total 3178.33 / 3178.33 2320 / 2520 1226.67 / 1226.67 Output Total 1300 / 1900 2150 / 2450 300 / 300 Balance 1878.33 / 1278.33 170 / 70 926.67 / 926.67 Lab / Micro Data 02/02/25 03:24 02/01/25 05:55 Labs: Laboratory Results - last 24 hr 02/01/25 05:55: Albumin 2.4 L 02/02/25 03:24: WBC 16.0 H, RBC 2.60 L, Hgb 8.4 L, Hct 27.6 L, MCV 106.2 H, MCH 32.3 H, MCHC 30.4 L, RDW Std Deviation 67.7 H, RDW Coeff of Jeffery 17.5 H, Plt Count 108 L, MPV 10.5, Immature Gran % (Auto) 0.700, Neut % (Auto) 94.0 H, Lymph % (Auto) 0.2 L, Dade % (Auto) 4.1, Eos % (Auto) 0.6, Baso % (Auto) 0.4, Absolute Neuts (auto) 15.1 H, Absolute Lymphs (auto) 0.04 L, Nucleated RBC % 0, Anisocytosis 1+, PT 14.4, INR 1.1, APTT 37.4 H, Phosphorus 3.4, Magnesium 2.1 Micro: Microbiology 01/24/25 23:13 Blood Culture (Wb) - Anticubital Left Blood Culture - Final No growth in 5 days. 01/24/25 23:15 Blood Culture (Wb) - Anticubital Right Blood Culture - Final No growth in 5 days. 01/25/25 11:15 Urine, Clean Catch Urine Culture - Final Enterobacter cloacae complex Escherichia coli 01/25/25 11:15 Stool Stool Occult Blood (EDEN) - Final Occult Blood Positive Radiography Diagnostic Testing: Radiology Impression Abdomen/Pelvis CT 02/01/25 08:42 IMPRESSION: Resolution of the previously seen pneumoperitoneum. Hepatosplenomegaly. Large amount of ascites in the abdomen and pelvis. Large pleural effusion with atelectasis. Reading Location: [facility] Rhythm Strip Rhythm Strip: A-fib Rate: 108 Ectopy: - (Patient appears to be in atrial fibrillation on the monitor at bedside. Heart rate is between 98-1 14.) Physical Exam Narrative GENERAL: But frail looking HEENT: Atraumatic; normocephalic EYES; Anicteric, Normal Conjunctiva NECK; supple, normal thyroid, RESPIRATORY: Diminished to auscultation CARDIOVASCULAR: Regular S1 S2, GI: soft, normoactive bowel sounds, slight abdominal distention : No Renal angle tenderness; EXTREMITIES: Bilateral pedal edema no clubbing, MUSCULOSKELETAL: no muscle wasting NEURO: Awake; no lateralizing signs. SKIN: No Rash PSYCH; Flat affect Assessment & Plan Assessment/Plan (1) Adult failure to thrive: (2) Acidosis, lactic: (3) Pancytopenia: (4) Mantle cell lymphoma: QUALIFIERS: Lymphoma site: multiple regions Qualified Code(s): C83.18 - Mantle cell lymphoma, lymph nodes of multiple sites PLAN: Plan Patient is a 69-year-old female with history of mantle cell lymphoma who presented with worsening weakness and volume overload. 1. Mantle cell lymphoma -Had port placed with plan to initiate chemotherapy with bendamustine/rituxin on 01/25. Has had worsening weakness and volume overload presumably secondary to her cancer. CT chest abdomen pelvis on admit showed known massive splenomegaly and known diffuse retroperitoneal lymphadenopathy with worsening moderate bilateral pleural effusions and diffuse ascites. Case was discussed with oncologist Dr. Nogueira patient started prophylactically on allopurinol to decrease her risk of tumor lysis syndrome. Plan is to initiate chemo in the hospital ? 01/26/2025;Patient was started on IV fluid in anticipation of initiation of her chemo. Patient is also on allopurinol to prevent tumor lysis syndrome given the heavy burden of her tumor ? 01/27/2025 patient was started on chemotherapy with Bendamustine Rituxan on 01/26/2025. Patient LDH markedly elevated at 1066. Case discussed with oncology Dr. Nogueira ? 01/28/2025: Patient has completed her first cycle of chemotherapy. Plan is for second cycle starting 03/01/2025. Patient to call to schedule. ? 01/29/2025; patient BUN trending up restarted IV fluids. ? 01/30/2025; patient still on IV fluid BUN at 35, Slight improvement from the day prior. ? 01/31/2025; patient complaining of intense abdominal pain CT of the abdomen and pelvis ordered for subsequent eval 3. Pancytopenia ? Malignancy related monitoring with daily CBC with differential ? 01/26/2025; with patient hemoglobin dropping to 6.6, an order was given for patient to be transfused 1 unit PRBC. ? 01/27/2025; patient hemoglobin up to 7.8 platelet count is however down to 32. Patient is on Granix ordered by oncology ? 01/28/2025; patient platelet count up to 42, Hemoglobin remains low at 8.0. Repeat CBC with differential ordered for a.m. ? 01/29/2025; patient WBC count up to 3.8, hemoglobin 8.7 and platelet count 45 ? 01/30/2025; cell counts compared to previous 3. Acute on chronic congestive heart failure with preserved ejection ? 2D echo ordered for EF assessment. Patient CHF precipitated by volume overload. Patient has been receiving intermittent furosemide ? 01/28/2025 patient 2D echo demonstrated Normal LV size. The left ventricular ejection fraction is 65 %. Stage 1 diastolic dysfunction. Structurally normal valves. ? 02/01/2025; patient has been managed intermittently with diuretic therapy 4. Anasarca ? Related to patient significant tumor burden. Patient has been started on diuretic therapy however this was discontinued after discussion with both oncology as well as bss solution architect given patient high risk for tumor lysis syndrome ? 02/02/2025; patient to undergo both thoracocentesis as well as paracentesis on 02/04/2024 5. Lactic acidosis ? Related to patient underlying malignancy patient symptoms not consistent with sepsis 6. Hyperuricemia ? Secondary to heavy tumor burden. Patient is on allopurinol to prevent tumor lysis syndrome in addition to IV hydration 7. Humoral hypercalcemia of malignancy ? Patient calcium level on 12/22/2024 was 12.2 down to 8.5 with treatment 8. COPD ? Not in exacerbation aerosol treatment as needed 9. Vitamin D deficiency ? Patient is on cholecalciferol supplements q. monthly 11. GERD ? Patient is on PPI 9.DVT prophylaxis ? On enoxaparin ? 01/28/2024; enoxaparin discontinued given significant drop in patient platelet counts 10. Hypophosphatemia ? Patient started on oral phosphate binders ? Patient responded to treatment will repeat phosphate levels in a.m. 11. Acute cystitis with Enterobacter and E. coli ? Patient remains on appropriate antibiotic therapy 12. Abdominal pain ? Ordered CT of the abdomen and pelvis with oral contrast findings included 02/01/2025 larger pleural effusions and compressive atelectasis compared with the previous study. Similar right renal collecting system dilatation and nonobstructing calculi. Probable large volume intra-abdominal ascites There are a few small locules of free air noted in the abdomen anteriorly which is of uncertain significance. Based on above consult was placed to general surgery case discussed with Dr. Lou. Patient was kept n.p.o. with plans to repeat imaging studies 13. Ascites ? Plan is for patient to undergo ultrasound-guided paracentesis, With body fluid analysis and 14. Bilateral pleural effusion ? Plan is for patient to undergo ultrasound-guided thoracocentesis with body fluid analysis sent Time spent in the patient's overall evaluation,decision-making process, review of diagnostic data, adjustment of management, discussion with other providers, nursing nursing and ancillary staff involved in patient's care documentation, 38 Minutes Charges/Coding Visit Charges Inpatient E&M: 84649 Subs Hosp L2
[2025-02-02 09:36] VITALS: BP 120/66; PULSE 94; RESP 16; TEMP 36.6; O2SAT 94
[2025-02-02] MEDS: Ensure Clear 120 ML Liquid PO (09:39)
[2025-02-02] MEDS: TBO-FILGRASTIM 300 MCG/0.5 ML ML SC (09:42)
--- NOTE | 2025-02-02 11:06 | CASEMGMT ---
Social Work Per physician, pt may be ready for dc to TCU in the next day or two. Moriah in TCU notified and requested precert be started in the morning in anticipation of discharge. ILEANA Vo
[2025-02-02 11:19] LABS: AST(SGOT) 23 U/L (<=31); Alanine Aminotransfer ALT/SGPT 14 U/L (<=34); Albumin, Serum 2.3 g/dL (3.4-4.8); Alkaline Phosphatase 158 U/L (35-104); Anion Gap 7 (5-15); BUN 22 mg/dL (4-19); BUN/Creat Ratio 29.6 RATIO (10-20); Calcium,Total 8.3 mg/dL (7.6-11.0); Carbon Dioxide 28.9 mmol/L (21.0-32.0); Chloride 108 mmol/L (98-108); Estimated Creatinine Clearance 65.45 ml/min (50-250); Globulin 2.0 g/dL (2.2-4.2); Glucose 99 mg/dL (70-99); Potassium 3.7 mmol/L (3.3-5.1)
--- NOTE | 2025-02-02 13:55 | CASEMGMT ---
RN FLASH received call from Lucero, Patient Advocate with [facility], to assist with discharge planning if needed. Lucero can be reached at [phone] ext [phone].
[2025-02-02 15:18] VITALS: BP 114/63; PULSE 99; RESP 14; TEMP 36.5; O2SAT 94
[2025-02-02 21:55] VITALS: BP 116/65; PULSE 93; RESP 18; TEMP 36.7; O2SAT 94
[2025-02-03] VITALS (11 sets, daily range): BP systolic 103–124; BP diastolic 55–67; PULSE 83–95; RESP 17–18; TEMP 36.3–36.9; O2SAT 90–100; BMI 22.6
[2025-02-03 04:08] LABS: Hematocrit 26.4 % (37-47); Hemoglobin 8.1 g/dL (12.0-15.0); Immature Granulocytes Count 0.230 X10^3/uL (0.0-0.0); Mean Corp Hgb Conc 30.7 g/dL (32-36); Mean Corpuscular Volume 106.0 fL (81-99); Mean Platelet Vol. 10.6 fl (6.2-12.0); NRBC Flagged by Analyzer 0 % (0-5); POSITIVE DIFFERENTIAL YES; POSITIVE MORPHOLOGY YES; Platelet Count 131 K/mm3 (150-450); RBC Distribution Width CV 17.2 % (11.6-14.6); RBC Distribution Width SD 66.1 fl (35.1-43.9); Red Blood Count 2.49 M/mm3 (4.2-5.4); White Blood Count 19.1 K/mm3 (4.4-11.0)
[2025-02-03 04:28] LABS: Anion Gap 6 (5-15); BUN 15 mg/dL (4-19); BUN/Creat Ratio 24.8 RATIO (10-20); Calcium,Total 8.0 mg/dL (7.6-11.0); Carbon Dioxide 31.4 mmol/L (21.0-32.0); Chloride 106 mmol/L (98-108); Estimated Creatinine Clearance 65.45 ml/min (50-250); Glucose 98 mg/dL (70-99); Potassium 3.2 mmol/L (3.3-5.1)
[2025-02-03 04:50] LABS: Differential Indicated SCAN CRITERIA MET
[2025-02-03 04:51] LABS: Anisocytosis 1+; Polychromasia RARE; Schistocytes RARE; Tear Drop Cell RARE
[2025-02-03 04:52] LABS: Differential Comment SCANNED
--- NOTE | 2025-02-03 06:10 | PN.HOSP_ITS ---
Reason for Visit Chief Complaint: Progressive weakness and volume overload Subjective Subjective Patient is scheduled to undergo both ultrasound-guided paracentesis and thoracentesis. Patient continues to diurese well. Objective Data Objective Data Vital Signs: Vital Signs Temp Pulse Resp BP Pulse Ox O2 Del Method O2 Flow Rate 98.3 F 90 18 111/66 94 Nasal Cannula 5 02/03/25 03:30 02/03/25 03:30 02/03/25 03:30 02/03/25 03:30 02/03/25 03:30 02/03/25 03:30 02/03/25 03:30 Oxygen Flow Rate (L/min) 5 Oxygen Delivery Method Nasal Cannula Weight: 65.7 kg Body Mass Index (BMI) 22.6 Intake & Output: Intake and Output for Last 24 Hours 02/01/25 02/02/25 02/03/25 23:59 23:59 23:59 Intake Total 2320 / 2520 3711.67 / 3711.67 Output Total 2150 / 2450 3300 / 3300 400 / 400 Balance 170 / 70 411.67 / 411.67 -400 / -400 Lab / Micro Data 02/03/25 03:56 02/03/25 03:56 Labs: Laboratory Results - last 24 hr 02/02/25 03:24: Sodium 144, Potassium 3.7, Chloride 108, Carbon Dioxide 28.9, Anion Gap 7, BUN 22 H, Creatinine 0.73, Estim Creat Clear Calc 65.45, Est GFR (MDRD) Non-Af 89, BUN/Creatinine Ratio 29.6 H, Glucose 99, Calcium 8.3, Phosphorus Cancelled, Magnesium Cancelled, Total Bilirubin 0.33, AST 23, ALT 14, Alkaline Phosphatase 158 H, Total Protein 4.3 L, Albumin 2.3 L, Globulin 2.0 L, Albumin/Globulin Ratio 1.1 02/03/25 03:56: WBC 19.1 H, RBC 2.49 L, Hgb 8.1 L, Hct 26.4 L, MCV 106.0 H, MCH 32.5 H, MCHC 30.7 L, RDW Std Deviation 66.1 H, RDW Coeff of Jeffery 17.2 H, Plt Count 131 L, MPV 10.6, Immature Gran % (Auto) 1.200 H, Neut % (Auto) 94.6 H, L ymph % (Auto) 0.4 L, Rogers % (Auto) 3.1, Eos % (Auto) 0.4, Baso % (Auto) 0.3, A bsolute Neuts (auto) 18.1 H, Absolute Lymphs (auto) 0.07 L, Nucleated RBC % 0, Differential Comment SCANNED, Plt Morphology Comment LARGE, Polychromasia RARE, Anisocytosis 1+, Tear Drop Cells RARE, Ovalocytes RARE, Schistocytes RARE, Sodium 143, Potassium 3.2 L, Chloride 106, Carbon Dioxide 31.4, Anion Gap 6, BUN 15, Creatinine 0.61 L, Estim Creat Clear Calc 65.45, Est GFR (MDRD) Non-Af 97, B UN/Creatinine Ratio 24.8 H, Glucose 98, Calcium 8.0 Micro: Microbiology 01/24/25 23:13 Blood Culture (Wb) - Anticubital Left Blood Culture - Final No growth in 5 days. 01/24/25 23:15 Blood Culture (Wb) - Anticubital Right Blood Culture - Final No growth in 5 days. 01/25/25 11:15 Urine, Clean Catch Urine Culture - Final Enterobacter cloacae complex Escherichia coli 01/25/25 11:15 Stool Stool Occult Blood ([facility]) - Final Occult Blood Positive Rhythm Strip Rhythm Strip: A-fib Rate: 108 Ectopy: - (Patient appears to be in atrial fibrillation on the monitor at bedside. Heart rate is between 98-1 14.) Physical Exam Narrative GENERAL: But frail looking HEENT: Atraumatic; normocephalic EYES; Anicteric, Normal Conjunctiva NECK; supple, normal thyroid, RESPIRATORY: Diminished to auscultation CARDIOVASCULAR: Regular S1 S2, GI: soft, normoactive bowel sounds, slight abdominal distention : No Renal angle tenderness; EXTREMITIES: Bilateral pedal edema no clubbing, MUSCULOSKELETAL: no muscle wasting NEURO: Awake; no lateralizing signs. SKIN: No Rash PSYCH; Flat affect Assessment & Plan Assessment/Plan (1) Adult failure to thrive: (2) Acidosis, lactic: (3) Pancytopenia: (4) Mantle cell lymphoma: QUALIFIERS: Lymphoma site: multiple regions Qualified Code(s): C 83.18 - Mantle cell lymphoma, lymph nodes of multiple sites PLAN: Plan Patient is a 69-year-old female with history of mantle cell lymphoma who presented with worsening weakness and volume overload. 1. Mantle cell lymphoma -Had port placed with plan to initiate chemotherapy with bendamustine/rituxin on 01/25. Has had worsening weakness and volume overload presumably secondary to her cancer. CT chest abdomen pelvis on admit showed known massive splenomegaly and known diffuse retroperitoneal lymphadenopathy with worsening moderate bilateral pleural effusions and diffuse ascites. Case was discussed with oncologist Dr. Nogueira patient started prophylactically on allopurinol to decrease her risk of tumor lysis syndrome. Plan is to initiate chemo in the hospital ? 01/26/2025;Patient was started on IV fluid in anticipation of initiation of her chemo. Patient is also on allopurinol to prevent tumor lysis syndrome given the heavy burden of her tumor ? 01/27/2025 patient was started on chemotherapy with Bendamustine Rituxan on 01/26/2025. Patient LDH markedly elevated at 1066. Case discussed with oncology Dr. Nogueira ? 01/28/2025: Patient has completed her first cycle of chemotherapy. Plan is for second cycle starting 03/01/2025. Patient to call to schedule. ? 01/29/2025; patient BUN trending up restarted IV fluids. ? 01/30/2025; patient still on IV fluid BUN at 35, Slight improvement from the day prior. ? 01/31/2025; patient complaining of intense abdominal pain CT of the abdomen and pelvis ordered for subsequent eval 3. Pancytopenia ? Malignancy related monitoring with daily CBC with differential ? 01/26/2025; with patient hemoglobin dropping to 6.6, an order was given for patient to be transfused 1 unit PRBC. ? 01/27/2025; patient hemoglobin up to 7.8 platelet count is however down to 32. Patient is on Granix ordered by oncology ? 01/28/2025; patient platelet count up to 42, Hemoglobin remains low at 8.0. Repeat CBC with differential ordered for a.m. ? 01/29/2025; patient WBC count up to 3.8, hemoglobin 8.7 and platelet count 45 ? 01/30/2025; cell counts compared to previous ? 02/03/2025; patient WBC count up to 19K patient is on Granix (scheduled to receive 10 doses). Hemoglobin is 8.1 with platelet count of, 131 3. Acute on chronic congestive heart failure with preserved ejection ? 2D echo ordered for EF assessment. Patient CHF precipitated by volume overload. Patient has been receiving intermittent furosemide ? 01/28/2025 patient 2D echo demonstrated Normal LV size. The left ventricular ejection fraction is 65 %. Stage 1 diastolic dysfunction. Structurally normal valves. ? 02/01/2025; patient has been managed intermittently with diuretic therapy 4. Anasarca ? Related to patient significant tumor burden. Patient has been started on diuretic therapy however this was discontinued after discussion with both oncology as well as credit collections manager given patient high risk for tumor lysis syndrome ? 02/02/2025; patient to undergo both thoracocentesis as well as paracentesis on 02/04/2024 5. Lactic acidosis ? Related to patient underlying malignancy patient symptoms not consistent with sepsis 6. Hyperuricemia ? Secondary to heavy tumor burden. Patient is on allopurinol to prevent tumor lysis syndrome in addition to IV hydration 7. Humoral hypercalcemia of malignancy ? Patient calcium level on 12/22/2024 was 12.2 down to 8.5 with treatment 8. COPD ? Not in exacerbation aerosol treatment as needed 9. Vitamin D deficiency ? Patient is on cholecalciferol supplements q. monthly 11. GERD ? Patient is on PPI 9.DVT prophylaxis ? On enoxaparin ? 01/28/2024; enoxaparin discontinued given significant drop in patient platelet counts 10. Hypophosphatemia ? Patient started on oral phosphate binders ? Patient responded to treatment will repeat phosphate levels in a.m. 11. Acute cystitis with Enterobacter and E. coli ? Patient remains on appropriate antibiotic therapy 12. Abdominal pain ? Ordered CT of the abdomen and pelvis with oral contrast findings included 02/01/2025 larger pleural effusions and compressive atelectasis compared with the previous study. Similar right renal collecting system dilatation and nonobstructing calculi. Probable large volume intra-abdominal ascites There are a few small locules of free air noted in the abdomen anteriorly which is of uncertain significance. Based on above consult was placed to general surgery case discussed with Dr. Lou. Patient was kept n.p.o. with plans to repeat imaging studies 13. Ascites ? Plan is for patient to undergo ultrasound-guided paracentesis, With body fluid analysis and 14. Bilateral pleural effusion ? Plan is for patient to undergo ultrasound-guided thoracocentesis with body fluid analysis sent 15. Hypokalemia ? Secondary to patient receiving diuretic therapy corrected per protocol Charges/Coding Visit Charges Inpatient E&M: 85724 Subs Hosp L2
[2025-02-03] MEDS: Potassium Chloride 10mEq/100mL 10 MEQ/100 ML IV.SOLN. 100 MEQ IV BOLUS ×4 (06:34→12:39)
[2025-02-03] MEDS: Lidocaine 2% (20 ml mdv) 20 ML Vial INFILT (08:48)
--- NOTE | 2025-02-03 08:50 | FLU_PTH ---
PATIENT: ESTELLA MIRELES LOC: [facility] U#:[id number] AGE/SX: 69/F ROOM: [facility] RE01/24/[address]: Dr. Godfrey Calles MD : 1955 BED: 1 DIS: 02/05/2025 SPEC #: [id number] RECD: 02/03/25 09:09 STATUS: SOUT REQ #: [id number] MALACHI: 02/03/25 08:[address]: Godfrey Calles DEPT: CYTOLOGY RECD BY: Mandi Jama ENTERED: 02/03/25 10:46 SP TYPE: Fluid OTHR DR: MD Dr. Micky Miranda MD Dr. Alexander Mosteller, DO Dr. Bruce Arthur, MD Dr. Derek Brown, MD Dr. Godfrey Walker Dr., MD Dr. Edward Matheis, MD Dr. Gautam Baskaran, MD Dr. Yordanos Habtegebriel, MD Dr. Hemant Dand, MD Dr. Jose Ochoa, MD Dr. Joseph Prah, MD Dr. Joel Simmons, MD Dr. Justin Wong, MD Dr. Kimber Foust, MD Dr. Lamia Aljundi, MD Dr. Michael Bortz, MD Dr. Mansour Isckarus, MD Dr. Marisa Magana, MD Dr. Pritam Ghosh, MD Dr. Pavan Irukulla, MD Dr. Robert Field, MD Dr. Ryan Jin, MD Dr. Roger Macklis, MD Dr. Saad Farooqi, MD Dr. Sukhdeep Dhesi, MD Dr. Bhavin Smalls Dr., MD Dr. Steve Walston, DO Dr. WilmerDO Dr. Donovan Angela MD Dr. Vivek Verma, MD Dr. William Haden, MD Richard Dennis Tompkins, SURFACE HYDROLOGIST-C DAVID Mace Tissues: Pleural fluid, NOS Procedures: Special Stain Group II Surgery Specimen Level IV Cytospin Fluid HEADER OPERATION: Thoracentesis fluid PRE-OP DIAGNOSIS: Pleural effusion TISSUE SUBMITTED: A- Thoracentesis fluid for cytology DIAGNOSIS CYTOLOGY A. Pleural effusion, thoracentesis (cytospin, cellblock): - Acute inflammation. - Few atypical cells noted, favor reactive mesothelial cells. CYTOLOGY STUDY Slides are reviewed. CYTOLOGY GROSS A. Received is 85 ml of yellow-cloudy fluid labeled with the patient's name and and designated per the requisition as Thoracentesis fluid. Submitted for cytology and cell block preparation. Mr 02/03/2025 CPT: 51591,50915
--- NOTE | 2025-02-03 09:05 | RAD_ITS ---
PROCEDURE: CHEST INSP/EXP 2 VIEW 02/03/2025 REASON FOR EXAM: POST THORA TECHNIQUE: Procedure Code: [id number] Modality: DX Procedure: CHEST INSP/EXP 2 VIEW Inspiration expiration views were obtained following the right thoracentesis. COMPARISON: Prior chest radiograph dated January 26, 2025. FINDINGS: The patient is status post right thoracentesis. No evidence of pneumothorax. Residual pleural-parenchymal changes seen. RAD/Chest Insp/Exp 2 View IMPRESSION: No evidence of pneumothorax following the right thoracentesis. Reading Location: [place] [address]
--- NOTE | 2025-02-03 10:10 | FLU_PTH ---
PATIENT: ESTELLA MIRELES LOC: [facility] U#:[id number] AGE/SX: 69/F ROOM: [facility] RE01/24/[address]: Dr. Godfrey Calles MD : 1955 BED: 1 DIS: 02/05/2025 SPEC #: [id number] RECD: 02/03/25 12:29 STATUS: SOUT REQ #: [id number] MALACHI: 02/03/25 10:[address]: Godfrey Calles DEPT: CYTOLOGY RECD BY: Mandi Jama ENTERED: 02/03/25 12:31 SP TYPE: Fluid OTHR DR: MD Dr. Micky Miranda MD Dr. Alexander Mosteller, DO Dr. Bruce Arthur, MD Dr. Derek Brown, MD Dr. Godfrey Walker Dr., MD Dr. Edward Matheis, MD Dr. Gautam Baskaran, MD Dr. Yordanos Habtegebriel, MD Dr. Hemant Dand, MD Dr. Jose Ochoa, MD Dr. Joseph Prah, MD Dr. Joel Simmons, MD Dr. Justin Wong, MD Dr. Kimber Foust, MD Dr. Lamia Aljundi, MD Dr. Michael Bortz, MD Dr. Mansour Isckarus, MD Dr. Marisa Magana, MD Dr. Pritam Ghosh, MD Dr. Pavan Irukulla, MD Dr. Robert Field, MD Dr. Ryan Jin, MD Dr. Roger Macklis, MD Dr. Saad Farooqi, MD Dr. Sukhdeep Dhesi, MD Dr. Bhavin Smalls Dr., MD Dr. Steve Walston, DO Dr. DO Dr. Donovan Christie MD Dr. Vivek Verma, MD Dr. William Haden, MD Richard Dennis Tompkins, FRUIT GROWER-C DAVID Mace Tissues: PARACENTESIS FLUID Procedures: Special Stain Group II Surgery Specimen Level IV Cytospin Fluid HEADER OPERATION: Paracentesis PRE-OP DIAGNOSIS: Ascites TISSUE SUBMITTED: A- Paracentesis fluid for cytology DIAGNOSIS CYTOLOGY A. Paracentesis fluid (cytospin, cellblock): - Acute inflammation. - No malignant cells identified. CYTOLOGY STUDY Slides are reviewed. CYTOLOGY GROSS . Received is ~90 ml of red-cloudy fluid labeled with the patient's name and and designated per the requisition as Paracentesis fluid. Submitted for cytology and cell block preparation. Mr 02/04/2025 CPT: 24930,[id number]
[2025-02-03 10:26] LABS: Body Fluid Mononuclear WBC # 0.046 10^3/uL; Body Fluid Mononuclear WBC % 37.1 %; Body Fluid Polynuclear WBC # 0.078 10^3/uL; Body Fluid Polynuclear WBC % 62.9 %; White Blood Count/Body Fluid 0.124 10^3/uL
[2025-02-03 10:35] LABS: Glucose, Body Fluid 101 mg/dL (Not Establ.)
[2025-02-03 10:52] LABS: Appearance/Body Fluid CLEAR; Auto B Fluid Analyzer BKGD Ct COUNTS W/IN LIMITS (W/IN LIMITS); Color/Body Fluid YELLOW; Source- Body Fluid THORACENTESIS
[2025-02-03 10:53] LABS: Body Fluid QC Type(s) BF1
[2025-02-03] MEDS: 0.9% Normal Saline (1000mL) 1,000 ML 100 ML IV ×2 (11:08→21:23)
[2025-02-03 11:15] LABS: Red Cell Count/Body Fluid 726 /mm3
[2025-02-03 11:48] LABS: LDH 257 U/L (84-246)
[2025-02-03] MEDS: TBO-FILGRASTIM 300 MCG/0.5 ML ML SC (12:08)
[2025-02-03 12:14] LABS: Albumin, Serum 2.3 g/dL (3.4-4.8)
[2025-02-03] MEDS: Ensure Clear 120 ML Liquid PO (17:16)
[2025-02-03] MEDS: Potassium Chloride Oral Tablet 20 MEQ PO (17:16)
[2025-02-04 03:45] VITALS: BP 100/59; PULSE 82; RESP 18; TEMP 36.6; O2SAT 95
[2025-02-04 05:44] VITALS: BMI 21.0
[2025-02-04 06:34] LABS: Hematocrit 25.2 % (37-47); Hemoglobin 7.6 g/dL (12.0-15.0); Immature Granulocytes Count 0.210 X10^3/uL (0.0-0.0); Mean Corp Hgb Conc 30.2 g/dL (32-36); Mean Corpuscular Volume 106.8 fL (81-99); Mean Platelet Vol. 11.1 fl (6.2-12.0); NRBC Flagged by Analyzer 0 % (0-5); POSITIVE DIFFERENTIAL YES; POSITIVE MORPHOLOGY YES; Platelet Count 128 K/mm3 (150-450); RBC Distribution Width CV 17.2 % (11.6-14.6); RBC Distribution Width SD 66.4 fl (35.1-43.9); Red Blood Count 2.36 M/mm3 (4.2-5.4); White Blood Count 14.2 K/mm3 (4.4-11.0)
[2025-02-04 06:59] LABS: Anion Gap 5 (5-15); BUN 12 mg/dL (4-19); BUN/Creat Ratio 20.8 RATIO (10-20); Calcium,Total 7.7 mg/dL (7.6-11.0); Carbon Dioxide 31.7 mmol/L (21.0-32.0); Chloride 107 mmol/L (98-108); Estimated Creatinine Clearance 64.71 ml/min (50-250); Glucose 86 mg/dL (70-99); Potassium 3.3 mmol/L (3.3-5.1)
[2025-02-04 07:00] LABS: Differential Indicated SCAN CRITERIA MET
[2025-02-04 07:07] LABS: Anisocytosis 1+
[2025-02-04] MEDS: 0.9% Normal Saline (1000mL) 1,000 ML 100 ML IV ×2 (07:13→18:48)
[2025-02-04 09:05] VITALS: BP 111/68; PULSE 79; RESP 18; TEMP 36.3; O2SAT 92
[2025-02-04] MEDS: TBO-FILGRASTIM 300 MCG/0.5 ML ML SC (09:12)
[2025-02-04] MEDS: Ensure Clear 120 ML Liquid PO (09:16)
[2025-02-04] MEDS: Potassium Chloride Oral Tablet 20 MEQ PO ×2 (10:42→16:46)
--- NOTE | 2025-02-04 11:09 | PN.HOSP_ITS ---
Reason for Visit Chief Complaint: Progressive weakness and volume overload Subjective Subjective patient underwent thoracocentesis as well as paracentesis. She had 1590 mL of yandel-colored fluid taken from the right pleural space, And 2700 mL of blood- tinged fluid aspirated from the abdomen fluid analysis sent. Repeat imaging studies ordered for this a.m. to evaluate for possible thoracocentesis involving the left pleural space Objective Data Objective Data Vital Signs: Vital Signs Temp Pulse Resp BP Pulse Ox O2 Del Method O2 Flow Rate 97.4 F L 79 18 111/68 92 Nasal Cannula 2 02/04/25 09:05 02/04/25 09:05 02/04/25 09:05 02/04/25 09:05 02/04/25 09:05 02/04/25 09:05 02/04/25 08:58 Oxygen Flow Rate (L/min) 2 Oxygen Delivery Method Nasal Cannula Weight: 60.9 kg Body Mass Index (BMI) 21.0 Intake & Output: Intake and Output for Last 24 Hours 02/02/25 02/03/25 02/04/25 23:59 23:59 23:59 Intake Total 3711.67 / 3711.67 3475 / 3475 1033.33 / 1033.33 Output Total 3300 / 3300 5715 / 5715 200 / 200 Balance 411.67 / 411.67 -2240 / -2240 833.33 / 833.33 Lab / Micro Data 02/04/25 05:58 02/04/25 05:58 Labs: Laboratory Results - last 24 hr 02/01/25 08:50: Fluid Glucose Cancelled, Fluid Total Protein Cancelled, Fluid LDH Cancelled 02/03/25 03:56: Lactate Dehydrogenase 257 H, Albumin 2.3 L 02/03/25 08:50: Fluid Source THORACENTESIS, Fluid Color YELLOW, Fluid Appearance CLEAR, Fluid RBC 726, Fluid Neutrophils 75, Fluid Lymphocytes 20, Fluid Monocytes 3, Fluid Macrophages 1, Fld Mesothelial Cells 1, Fl Pathologist Comment May follow, Fluid Comment 2 SEE COMMENT 02/04/25 05:58: WBC 14.2 H, RBC 2.36 L, Hgb 7.6 L, Hct 25.2 L, MCV 106.8 H, MCH 32.2 H, MCHC 30.2 L, RDW Std Deviation 66.4 H, RDW Coeff of Jeffery 17.2 H, Plt Count 128 L, MPV 11.1, Immature Gran % (Auto) 1.500 H, Neut % (Auto) 93.6 H, L ymph % (Auto) 0.6 L, Cochran % (Auto) 3.4, Eos % (Auto) 0.6, Baso % (Auto) 0.3, A bsolute Neuts (auto) 13.3 H, Absolute Lymphs (auto) 0.09 L, Nucleated RBC % 0, Anisocytosis 1+, Sodium 144, Potassium 3.3, Chloride 107, Carbon Dioxide 31.7, Anion Gap 5, BUN 12, Creatinine 0.57 L, Estim Creat Clear Calc 64.71, Est GFR (MDRD) Non-Af 99, BUN/Creatinine Ratio 20.8 H, Glucose 86, Calcium 7.7 Micro: Microbiology 01/24/25 23:13 Blood Culture (Wb) - Anticubital Left Blood Culture - Final No growth in 5 days. 01/24/25 23:15 Blood Culture (Wb) - Anticubital Right Blood Culture - Final No growth in 5 days. 01/25/25 11:15 Urine, Clean Catch Urine Culture - Final Enterobacter cloacae complex Escherichia coli 01/25/25 11:15 Stool Stool Occult Blood ([facility]EN) - Final Occult Blood Positive Radiography Diagnostic Testing: Radiology Impression Paracentesis Ultrasound 02/02/25 07:00 IMPRESSION: Successful ultrasound-guided paracentesis. No immediate complication noted. The patient tolerated the procedure well. Reading Location: [facility]--1 Thoracentesis Ultrasound 02/02/25 07:00 IMPRESSION: Successful ultrasound-guided right thoracentesis with removal of 1590 mL of yandel colored fluid. A 100 mL sample was sent to the laboratory for analysis. The patient tolerated the procedure well. No immediate complication noted. Reading Location: [facility]-1 Rhythm Strip Rhythm Strip: A-fib Rate: 108 Ectopy: - (Patient appears to be in atrial fibrillation on the monitor at bedside. Heart rate is between 98-1 14.) Physical Exam Narrative GENERAL: But frail looking HEENT: Atraumatic; normocephalic EYES; Anicteric, Normal Conjunctiva NECK; supple, normal thyroid, RESPIRATORY: Diminished to auscultation CARDIOVASCULAR: Regular S1 S2, GI: soft, normoactive bowel sounds, slight abdominal distention : No Renal angle tenderness; EXTREMITIES: Bilateral pedal edema no clubbing, MUSCULOSKELETAL: no muscle wasting NEURO: Awake; no lateralizing signs. SKIN: No Rash PSYCH; Flat affect Assessment & Plan Assessment/Plan (1) Adult failure to thrive: (2) Acidosis, lactic: (3) Pancytopenia: (4) Mantle cell lymphoma: QUALIFIERS: Lymphoma site: multiple regions Qualified Code(s): C 83.18 - Mantle cell lymphoma, lymph nodes of multiple sites PLAN: Plan Patient is a 69-year-old female with history of mantle cell lymphoma who presented with worsening weakness and volume overload. 1. Mantle cell lymphoma -Had port placed with plan to initiate chemotherapy with bendamustine/rituxin on 01/25. Has had worsening weakness and volume overload presumably secondary to her cancer. CT chest abdomen pelvis on admit showed known massive splenomegaly and known diffuse retroperitoneal lymphadenopathy with worsening moderate bilateral pleural effusions and diffuse ascites. Case was discussed with oncologist Dr. Nogueira patient started prophylactically on allopurinol to decrease her risk of tumor lysis syndrome. Plan is to initiate chemo in the hospital ? 01/26/2025;Patient was started on IV fluid in anticipation of initiation of her chemo. Patient is also on allopurinol to prevent tumor lysis syndrome given the heavy burden of her tumor ? 01/27/2025 patient was started on chemotherapy with Bendamustine Rituxan on 01/26/2025. Patient LDH markedly elevated at 1066. Case discussed with oncology Dr. Nogueira ? 01/28/2025: Patient has completed her first cycle of chemotherapy. Plan is for second cycle starting 03/01/2025. Patient to call to schedule. ? 01/29/2025; patient BUN trending up restarted IV fluids. ? 01/30/2025; patient still on IV fluid BUN at 35, Slight improvement from the day prior. ? 01/31/2025; patient complaining of intense abdominal pain CT of the abdomen and pelvis ordered for subsequent eval 3. Pancytopenia ? Malignancy related monitoring with daily CBC with differential ? 01/26/2025; with patient hemoglobin dropping to 6.6, an order was given for patient to be transfused 1 unit PRBC. ? 01/27/2025; patient hemoglobin up to 7.8 platelet count is however down to 32. Patient is on Granix ordered by oncology ? 01/28/2025; patient platelet count up to 42, Hemoglobin remains low at 8.0. Repeat CBC with differential ordered for a.m. ? 01/29/2025; patient WBC count up to 3.8, hemoglobin 8.7 and platelet count 45 ? 01/30/2025; cell counts compared to previous ? 02/03/2025; patient WBC count up to 19K patient is on Granix (scheduled to receive 10 doses). Hemoglobin is 8.1 with platelet count of, 131 3. Acute on chronic congestive heart failure with preserved ejection ? 2D echo ordered for EF assessment. Patient CHF precipitated by volume overload. Patient has been receiving intermittent furosemide ? 01/28/2025 patient 2D echo demonstrated Normal LV size. The left ventricular ejection fraction is 65 %. Stage 1 diastolic dysfunction. Structurally normal valves. ? 02/01/2025; patient has been managed intermittently with diuretic therapy 4. Anasarca ? Related to patient significant tumor burden. 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 02/02/2025; patient to undergo both thoracocentesis as well as paracentesis on 02/04/2024 ? 02/05/2024; patient underwent thoracocentesis as well as paracentesis. She had 1590 mL of yandel-colored fluid taken from the right pleural space, And 2700 mL of blood-tinged fluid aspirated from the abdomen fluid analysis sent. Repeat imaging studies ordered for this a.m. to evaluate for possible thoracocentesis involving the left pleural space 5. Lactic acidosis ? Related to patient underlying malignancy patient symptoms not consistent with sepsis 6. Hyperuricemia ? Secondary to heavy tumor burden. Patient is on allopurinol to prevent tumor lysis syndrome in addition to IV hydration 7. Humoral hypercalcemia of malignancy ? Patient calcium level on 12/22/2024 was 12.2 down to 8.5 with treatment 8. COPD ? Not in exacerbation aerosol treatment as needed 9. Vitamin D deficiency ? Patient is on cholecalciferol supplements q. monthly 11. GERD ? Patient is on PPI 9.DVT prophylaxis ? On enoxaparin ? 01/28/2024; enoxaparin discontinued given significant drop in patient platelet counts ?. 02/04/2025 case was discussed with oncology the day prior plan was to have started enoxaparin however there is a slight drop in patient platelet count as well as hemoglobin will therefore hold on enoxaparin for an additional day 10. Hypophosphatemia ? Patient started on oral phosphate binders ? Patient responded to treatment will repeat phosphate levels in a.m. 11. Acute cystitis with Enterobacter and E. coli ? Patient remains on appropriate antibiotic therapy 12. Abdominal pain ? Ordered CT of the abdomen and pelvis with oral contrast findings included 02/01/2025 larger pleural effusions and compressive atelectasis compared with the previous study. Similar right renal collecting system dilatation and nonobstructing calculi. Probable large volume intra-abdominal ascites There are a few small locules of free air noted in the abdomen anteriorly which is of uncertain significance. Based on above consult was placed to general surgery case discussed with Dr. Lou. Patient was kept n.p.o. with plans to repeat imaging studies 13. Ascites ? Plan is for patient to undergo ultrasound-guided paracentesis, With body fluid analysis and 14. Bilateral pleural effusion ? Plan is for patient to undergo ultrasound-guided thoracocentesis with body fluid analysis sent 15. Hypokalemia ? Secondary to patient receiving diuretic therapy corrected per protocol Charges/Coding Visit Charges Inpatient E&M: 48035 Subs Hosp L2
[2025-02-04 12:23] LABS: Pathologist Comment/Body Fluid Reviewed
[2025-02-04 12:24] LABS: Neutrophil (Segs) 75 %
--- NOTE | 2025-02-04 14:03 | CASEMGMT ---
Social Work SW spoke with the patient and informed her that we are still waiting on her insurance to see if they are going to approve her to DC to a SNF. VALENTIN Crow
--- NOTE | 2025-02-04 14:15 | RAD_ITS ---
PROCEDURE: CHEST PA AND LATERAL 02/04/2025 REASON FOR EXAM: BILATERAL PLEURAL EFFUSION TECHNIQUE: Procedure Code: RADCXR Modality: DX Procedure: CHEST PA AND LATERAL COMPARISON: February 03, 2025. FINDINGS: Hardware: EKG electrodes are seen. A right-sided port a catheter is seen with the tip in the right atrium. Heart: The heart is nonenlarged. Mediastinum: The mediastinal contour is unremarkable. Lungs: Increasing bilateral pleural effusions with bibasilar atelectasis and/or infiltrate worse at the right lung base. Bones: Degenerative changes are identified within the thoracic spine. RAD/Chest PA and Lateral IMPRESSION: Mild degree of increased bilateral pleural effusions with the bibasilar atelect asis and/or infiltrates worse on the right side. Reading Location: [place] [id number]
[2025-02-04 15:05] VITALS: BP 114/56; PULSE 88; RESP 18; TEMP 36.7; O2SAT 92
[2025-02-04 23:25] VITALS: O2SAT 89
[2025-02-04 23:35] VITALS: BP 114/62; PULSE 97; RESP 18; TEMP 36.8; O2SAT 95
[2025-02-05] MEDS: 0.9% Normal Saline (1000mL) 1,000 ML 100 ML IV (05:23)
[2025-02-05 05:26] VITALS: BP 111/63; PULSE 87; RESP 18; TEMP 36.9; O2SAT 92
[2025-02-05 05:41] VITALS: BMI 21.0
[2025-02-05 05:48] LABS: Hematocrit 25.8 % (37-47); Hemoglobin 7.8 g/dL (12.0-15.0); Immature Granulocytes Count 0.160 X10^3/uL (0.0-0.0); Mean Corp Hgb Conc 30.2 g/dL (32-36); Mean Corpuscular Volume 107.1 fL (81-99); Mean Platelet Vol. 11.3 fl (6.2-12.0); NRBC Flagged by Analyzer 0 % (0-5); POSITIVE DIFFERENTIAL YES; POSITIVE MORPHOLOGY YES; Platelet Count 148 K/mm3 (150-450); RBC Distribution Width CV 17.3 % (11.6-14.6); RBC Distribution Width SD 68.3 fl (35.1-43.9); Red Blood Count 2.41 M/mm3 (4.2-5.4); White Blood Count 10.5 K/mm3 (4.4-11.0)
[2025-02-05 06:35] LABS: Anion Gap 6 (5-15); BUN 11 mg/dL (4-19); BUN/Creat Ratio 18.3 RATIO (10-20); Calcium,Total 7.8 mg/dL (7.6-11.0); Carbon Dioxide 32.5 mmol/L (21.0-32.0); Chloride 106 mmol/L (98-108); Estimated Creatinine Clearance 64.81 ml/min (50-250); Glucose 87 mg/dL (70-99); Magnesium 1.9 mg/dL (1.5-2.2); Potassium 3.3 mmol/L (3.3-5.1)
--- NOTE | 2025-02-05 08:29 | PN.HOSP_ITS ---
Reason for Visit Chief Complaint: Progressive weakness and volume overload Subjective Subjective Patient seen still remains frail. Repeat checks x-ray did show presence of bilateral pleural effusions. Phosphate down this a.m. patient is on phosphate binders discontinue Objective Data Objective Data Vital Signs: Vital Signs Temp Pulse Resp BP Pulse Ox O2 Del Method O2 Flow Rate 98.5 F 87 18 111/63 92 Nasal Cannula 3 02/05/25 05:26 02/05/25 05:26 02/05/25 05:26 02/05/25 05:26 02/05/25 05:26 02/05/25 07:05 02/05/25 07:05 Oxygen Flow Rate (L/min) 3 Oxygen Delivery Method Nasal Cannula Weight: 61 kg Body Mass Index (BMI) 21.0 Intake & Output: Intake and Output for Last 24 Hours 02/03/25 02/04/25 02/05/25 23:59 23:59 23:59 Intake Total 3475 / 3475 2633.33 / 2633.33 1050 / 1050 Output Total 5715 / 5715 2400 / 2400 100 / 100 Balance -2240 / -2240 233.33 / 233.33 950 / 950 Lab / Micro Data 02/05/25 04:51 02/05/25 04:51 Labs: Laboratory Results - last 24 hr 02/03/25 08:50: Fluid Neutrophils 75, Fl Pathologist Comment Reviewed 02/03/25 11:01: Fluid LDH 96 02/05/25 04:51: WBC 10.5, RBC 2.41 L, Hgb 7.8 L, Hct 25.8 L, MCV 107.1 H, MCH 32.4 H, MCHC 30.2 L, RDW Std Deviation 68.3 H, RDW Coeff of Jeffery 17.3 H, Plt Count 148 L, MPV 11.3, Immature Gran % (Auto) 1.500 H, Neut % (Auto) 92.4 H, L ymph % (Auto) 0.9 L, [place]leigh % (Auto) 4.0, Eos % (Auto) 0.8, Baso % (Auto) 0.4, A bsolute Neuts (auto) 9.7 H, Absolute Lymphs (auto) 0.09 L, Nucleated RBC % 0, Sodium 144, Potassium 3.3, Chloride 106, Carbon Dioxide 32.5 H, Anion Gap 6, BUN 11, Creatinine 0.59 L, Estim Creat Clear Calc 64.81, Est GFR (MDRD) Non-Af 98, BUN/Creatinine Ratio 18.3, Glucose 87, Calcium 7.8, Phosphorus 1.7 L, Magnesium 1.9 Micro: Microbiology 01/24/25 23:13 Blood Culture (Wb) - Anticubital Left Blood Culture - Final No growth in 5 days. 01/24/25 23:15 Blood Culture (Wb) - Anticubital Right Blood Culture - Final No growth in 5 days. 01/25/25 11:15 Urine, Clean Catch Urine Culture - Final Enterobacter cloacae complex Escherichia coli 01/25/25 11:15 Stool Stool Occult Blood ([facility]) - Final Occult Blood Positive Radiography Diagnostic Testing: Radiology Impression Chest X-Ray 02/04/25 14:15 IMPRESSION: Mild degree of increased bilateral pleural effusions with the bibasilar atelectasis and/or infiltrates worse on the right side. Reading Location: [place] [address] Rhythm Strip Rhythm Strip: A-fib Rate: 108 Ectopy: - (Patient appears to be in atrial fibrillation on the monitor at bedside. Heart rate is between 98-1 14.) Physical Exam Narrative GENERAL: But frail looking HEENT: Atraumatic; normocephalic EYES; Anicteric, Normal Conjunctiva NECK; supple, normal thyroid, RESPIRATORY: Diminished to auscultation CARDIOVASCULAR: Regular S1 S2, GI: soft, normoactive bowel sounds, slight abdominal distention : No Renal angle tenderness; EXTREMITIES: Bilateral pedal edema no clubbing, MUSCULOSKELETAL: no muscle wasting NEURO: Awake; no lateralizing signs. SKIN: No Rash PSYCH; Flat affect Assessment & Plan Assessment/Plan (1) Adult failure to thrive: (2) Acidosis, lactic: (3) Pancytopenia: (4) Mantle cell lymphoma: QUALIFIERS: Lymphoma site: multiple regions Qualified Code(s): C 83.18 - Mantle cell lymphoma, lymph nodes of multiple sites PLAN: Plan Patient is a 69-year-old female with history of mantle cell lymphoma who presented with worsening weakness and volume overload. 1. Mantle cell lymphoma -Had port placed with plan to initiate chemotherapy with bendamustine/rituxin on 01/25. Has had worsening weakness and volume overload presumably secondary to her cancer. CT chest abdomen pelvis on admit showed known massive splenomegaly and known diffuse retroperitoneal lymphadenopathy with worsening moderate bilateral pleural effusions and diffuse ascites. Case was discussed with oncologist Dr. Nogueira patient started prophylactically on allopurinol to decrease her risk of tumor lysis syndrome. Plan is to initiate chemo in the hospital ? 01/26/2025;Patient was started on IV fluid in anticipation of initiation of her chemo. Patient is also on allopurinol to prevent tumor lysis syndrome given the heavy burden of her tumor ? 01/27/2025 patient was started on chemotherapy with Bendamustine Rituxan on 01/26/2025. Patient LDH markedly elevated at 1066. Case discussed with oncology Dr. Nogueira ? 01/28/2025: Patient has completed her first cycle of chemotherapy. Plan is for second cycle starting 03/01/2025. Patient to call to schedule. ? 01/29/2025; patient BUN trending up restarted IV fluids. ? 01/30/2025; patient still on IV fluid BUN at 35, Slight improvement from the day prior. ? 01/31/2025; patient complaining of intense abdominal pain CT of the abdomen and pelvis ordered for subsequent eval 3. Pancytopenia ? Malignancy related monitoring with daily CBC with differential ? 01/26/2025; with patient hemoglobin dropping to 6.6, an order was given for patient to be transfused 1 unit PRBC. ? 01/27/2025; patient hemoglobin up to 7.8 platelet count is however down to 32. Patient is on Granix ordered by oncology ? 01/28/2025; patient platelet count up to 42, Hemoglobin remains low at 8.0. Repeat CBC with differential ordered for a.m. ? 01/29/2025; patient WBC count up to 3.8, hemoglobin 8.7 and platelet count 45 ? 01/30/2025; cell counts compared to previous ? 02/03/2025; patient WBC count up to 19K patient is on Granix (scheduled to receive 10 doses). Hemoglobin is 8.1 with platelet count of, 131 3. Acute on chronic congestive heart failure with preserved ejection ? 2D echo ordered for EF assessment. Patient CHF precipitated by volume overload. Patient has been receiving intermittent furosemide ? 01/28/2025 patient 2D echo demonstrated Normal LV size. The left ventricular ejection fraction is 65 %. Stage 1 diastolic dysfunction. Structurally normal valves. ? 02/01/2025; patient has been managed intermittently with diuretic therapy 4. Anasarca ? Related to patient significant tumor burden. 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 02/02/2025; patient to undergo both thoracocentesis as well as paracentesis on 02/04/2024 ? 02/05/2024; patient underwent thoracocentesis as well as paracentesis. She had 1590 mL of yandel-colored fluid taken from the right pleural space, And 2700 mL of blood-tinged fluid aspirated from the abdomen fluid analysis sent. Repeat imaging studies ordered for this a.m. to evaluate for possible thoracocentesis involving the left pleural space 5. Lactic acidosis ? Related to patient underlying malignancy patient symptoms not consistent with sepsis 6. Hyperuricemia ? Secondary to heavy tumor burden. Patient is on allopurinol to prevent tumor lysis syndrome in addition to IV hydration 7. Humoral hypercalcemia of malignancy ? Patient calcium level on 12/22/2024 was 12.2 down to 8.5 with treatment 8. COPD ? Not in exacerbation aerosol treatment as needed 9. Vitamin D deficiency ? Patient is on cholecalciferol supplements q. monthly 11. GERD ? Patient is on PPI 9.DVT prophylaxis ? On enoxaparin ? 01/28/2024; enoxaparin discontinued given significant drop in patient platelet counts ?. 02/04/2025 case was discussed with oncology the day prior plan was to have started enoxaparin however there is a slight drop in patient platelet count as well as hemoglobin will therefore hold on enoxaparin for an additional day 10. Hypophosphatemia ? Patient started on oral phosphate binders ? Patient responded to treatment will repeat phosphate levels in a.m. 11. Acute cystitis with Enterobacter and E. coli ? Patient remains on appropriate antibiotic therapy 12. Abdominal pain ? Ordered CT of the abdomen and pelvis with oral contrast findings included 02/01/2025 larger pleural effusions and compressive atelectasis compared with the previous study. Similar right renal collecting system dilatation and nonobstructing calculi. Probable large volume intra-abdominal ascites There are a few small locules of free air noted in the abdomen anteriorly which is of uncertain significance. Based on above consult was placed to general surgery case discussed with Dr. Lou. Patient was kept n.p.o. with plans to repeat imaging studies 13. Ascites ? Plan is for patient to undergo ultrasound-guided paracentesis, With body fluid analysis and 14. Bilateral pleural effusion ? Plan is for patient to undergo ultrasound-guided thoracocentesis with body fluid analysis sent 15. Hypokalemia ? Secondary to patient receiving diuretic therapy corrected per protocol 16. Hypophosphatemia Secondary to use of phosphate binders discontinued. Time spent in the patient's overall evaluation,decision-making process, review of diagnostic data, adjustment of management, discussion with other providers, nursing nursing and ancillary staff involved in patient's care documentation, 38 Minutes Charges/Coding Visit Charges Inpatient E&M: 11892 [facility] Hosp L2
[2025-02-05 09:05] VITALS: BP 111/73; PULSE 89; RESP 18; TEMP 36.4; O2SAT 93
[2025-02-05] MEDS: TBO-FILGRASTIM 300 MCG/0.5 ML ML SC (09:07)
[2025-02-05] MEDS: Na Biphos/Potassium Phosphate PACKET 1 PACKET PO (09:21)
[2025-02-05] MEDS: Potassium Chloride Oral Tablet 20 MEQ PO (09:22)
[2025-02-05 10:21] VITALS: O2SAT 98
--- NOTE | 2025-02-05 10:48 | CASEMGMT ---
Discharge Planning A list of HH providers including quality and resource use data and consistent with the patient's preferred geographic region, medical needs, and insurance network was created in [employer] Guide.? This list was provided to the SW. Livier Radford Discharge Planning Asst.
--- NOTE | 2025-02-05 11:11 | CASEMGMT ---
Social Work A list of?HH providers including quality and resource use data and consistent with the patient's preferred geographic region, medical needs, and insurance network was created in [employer] Guide.? This list was provided to the patient. SW spoke with the patient regarding DC home if the insurance company denies her DC to TCU. SW asked if the patient would DC home or to her daughters house. Patient reported she would DC home. Patient chose [facility] if she DC home. She reported her daughter can pick her up if she DC home. VALENTIN Seymour
--- NOTE | 2025-02-05 14:10 | PCM.PN.PAL ---
Subjective Subjective 02/05/25: I am meeting with the patient for possible, radiological studies and extensive documentation since last visit. I then met with Estella at bedside Kerry. She stated that she felt better after her thoracentesis and paracentesis previously and was able to sit up at a 90 degree angle following drainage of fluid. She feels like her abdomen is filling back up again and is beginning to have increasing pain. I did remind Kerry that she does have pain medications that she is able to utilize for breakthrough pain which she stated understanding. We then discussed the possibility of outpatient palliative care in which she stated think about it. She did ask me what that would look like for her and we did explain that they could help her with symptom management while she goes through treatments which she was interested in. She does not feel like she wants to commit, at this time but I did provide her with multiple brochures and a list of palliative care agencies in the area. We then discussed her daughter whom she stated she would like to look over today pressures with her. She did state that her daughter gets triggered from reading anything about hospice. I did cross out any words that said hospice and only concentrated on palliative care brochures. She stated appreciation. I do think Kerry would benefit significantly from outpatient palliative care services if she so chooses. All questions were answered. 01/25/25: Prior to meeting with the patient and family at bedside I reviewed labs, radiological studies, extensive documentation from both this hospitalization and oncology notes. I then met with the patient and her family at bedside. I introduced myself and the concept of palliative care in which they voluntarily excepted our services. I then met with Kerry and her daughter at bedside. There was 1 granddaughter at bedside at the time of my initial introduction. Kerry's daughter then said that there was a large family and that they were in the waiting room. I then stated that people could come back into the room if they were interested in being here for goals of care conversations. They were then 3 young children and a son that came into the room. I then began discussing Kerry's overall clinical picture to begin having goals of care conversations with her and her family. I did note the young children to begin crying and asked that the parents evaluate whether they would like them to continue to be in the room for continued goals of care conversations or if they felt that they should be escorted back to the waiting in, and that it was their choice. The daughter then escorted the children back to the waiting room. Once the children are out of the room and the daughter was back, I began having a goals of care conversation based on the patient's current presentation as well as potentials for the inability to tolerate chemo, which is currently being evaluated. I did note that the patient's daughter was beginning to get angry and stated I am very pissed off, why was this not caught sooner? I explained to the daughter that I was not part of the initial team that was caring for her but that sometimes symptoms are vague and they rule out other possibilities before they are able to do more aggressive labs and radiological studies. Kerry wanted to know why they were doing certain tests now and not happen sooner. I did explain to them that often times, insurance companies require certain things to be done first before other things can be completed.. She stated understanding. We then discussed chemotherapy and the benefits versus burdens and what she may have to expect going forward. I did explain that if she chose not to do chemotherapy another alternative would be comfort focused care and hospice. The patient's daughter then became very angry and told me to not bring up the H words again. I did explain to the daughter that it is important that they have all of the information needed to make the most educated decisions going forward. She then stated I know that but I do not want you to see that 1 again. I did agree that I would not bring up hospice any longer. Kerry expressed frustration over the conflicting information that she has been receiving stating that 1 person will tell me 1 thing and then another person will tell me another. 1 doctor told me I should get chemotherapy and then another doctor told me I should not get chemotherapy. I did explain to her that my role was to present the information so that she could make informed decisions going forward. She did state understanding and was appreciative. Per family request, I did review patient's labs compared to previous labs. She does have slightly worsened WBCs today as well as hemoglobin. The patient does state that she is feeling slightly better today than she did yesterday. I did encourage her to concentrate on how she is feeling versus what the numbers look like right now. Lastly, given the patient's diagnosis, we did discuss her CODE STATUS. I did explain the benefits versus burdens of CPR and intubation versus being a full code. Kerry did not feel capable of making any decisions today but I did encourage her to speak with her family about her CODE STATUS so that they know what her wishes are going forward should anything happen. She stated understanding. As of right now, the plan is for the patient to be evaluated for chemotherapy to see if she could withstand it tomorrow. All questions were answered. Patient remains full code. Per hospitalist: ESTELLA MIRELES, is a 69 F who presented to [facility] ED on 01/24/2025 with progressive weakness and volume overload. Patient was recently diagnosed with B-cell/mantle cell lymphoma and established with Oncology here. She had chemotherapy port placed and plan was to begin chemotherapy tomorrow. Unfortunately she has had worsening weakness with weight gain over the past several days and has been unable to care for self at home, so family brought her in for further evaluation. In the ED she was normotensive and hemodynamically stable on room air at rest. Labs notable for hemoglobin 8.2, WBC count 3.0, platelet count 59, INR 1.3, lactic acid 10.7. BNP 2369. LFTs stable from previous. CT chest abdomen pelvis showed generalized fluid overload/third spacing with moderate bilateral pleural effusions, moderate to large ascites, marked splenomegaly with diffuse retroperitoneal lymphadenopathy, and mild right hydronephrosis with no discrete obstructing mass noted. Dr. Subramanian discussed case with Dr. Dan who noted the elevated lactic acid was likely due to poor clearance in setting of her lymphoma, and he noted patient could be admitted here for diuresis and further discussion regarding possible treatment options and goals of care. Dr. Subramanian broached goals of care with the patient and patient noted that she wished to be full code and be aggressive with her care. Hospitalist was then contacted for admission. I saw the patient at bedside in the ED, son and daughter were present. Patient was fatigued and thin appearing, was otherwise sitting back fairly comfortably in bed and conversing normally. She denied any acute pain or discomfort. Noted that she was feeling hungry as she had not eaten much since yesterday evening. She did have significant urine output with 1 dose of IV Lasix thus far. I noted to her and family that we are very concerned about her overall prognosis, and I am unsure if she will be a candidate for chemotherapy at this time. However, oncology will be seeing her tomorrow morning to discuss this with her further. Will be admitted for further management. This note was generated with [employer] dictation software. It may contain incorrect words, spelling, and punctuation that were not noted in checking the note before signing. Objective Data Objective Data Vital Signs: Vital Signs Temp Pulse Resp BP Pulse Ox O2 Del Method O2 Flow Rate 97.5 F L 89 18 111/73 98 Nasal Cannula 3 02/05/25 09:05 02/05/25 09:05 02/05/25 09:05 02/05/25 09:05 02/05/25 10:21 02/05/25 09:05 02/05/25 13:31 Oxygen Flow Rate (L/min) 3 Oxygen Delivery Method Nasal Cannula Weight: 134 lb 7.712 oz Body Mass Index (BMI) 21.0 Intake & Output: Intake and Output for Last 24 Hours 02/03/25 02/04/25 02/05/25 23:59 23:59 23:59 Intake Total 3475 / 3475 2633.33 / 2633.33 1340 / 1340 Output Total 5715 / 5715 2400 / 2400 800 / 800 Balance -2240 / -2240 233.33 / 233.33 540 / 540 Lab / Micro Data Attestation: I reviewed the patient's lab results. Lab results narrative: Continuing to monitor hemoglobin as patient has received blood transfusions. 02/05/25 04:51 02/05/25 04:51 Labs: Laboratory Results - last 24 hr 02/03/25 11:01: Fluid LDH 96 02/05/25 04:51: WBC 10.5, RBC 2.41 L, Hgb 7.8 L, Hct 25.8 L, MCV 107.1 H, MCH 32.4 H, MCHC 30.2 L, RDW Std Deviation 68.3 H, RDW Coeff of Jeffery 17.3 H, Plt Count 148 L, MPV 11.3, Immature Gran % (Auto) 1.500 H, Neut % (Auto) 92.4 H, Lymph % (Auto) 0.9 L, Kern % (Auto) 4.0, Eos % (Auto) 0.8, Baso % (Auto) 0.4, Absolute Neuts (auto) 9.7 H, Absolute Lymphs (auto) 0.09 L, Nucleated RBC % 0, Sodium 144, Potassium 3.3, Chloride 106, Carbon Dioxide 32.5 H, Anion Gap 6, BUN 11, Creatinine 0.59 L, Estim Creat Clear Calc 64.81, Est GFR (MDRD) Non-Af 98, BUN/Creatinine Ratio 18.3, Glucose 87, Calcium 7.8, Phosphorus 1.7 L, Magnesium 1.9 Micro: Microbiology 01/24/25 23:13 Blood Culture (Wb) - Anticubital Left Blood Culture - Final No growth in 5 days. 01/24/25 23:15 Blood Culture (Wb) - Anticubital Right Blood Culture - Final No growth in 5 days. 01/25/25 11:15 Urine, Clean Catch Urine Culture - Final Enterobacter cloacae complex Escherichia coli 01/25/25 11:15 Stool Stool Occult Blood (EDEN) - Final Occult Blood Positive Radiography Diagnostic Testing: Radiology Impression Chest X-Ray 02/04/25 14:15 IMPRESSION: Mild degree of increased bilateral pleural effusions with the bibasilar atelectasis and/or infiltrates worse on the right side. Reading Location: [place] [id number] Rhythm Strip Rhythm Strip: A-fib Rate: 108 Ectopy: - (Patient appears to be in atrial fibrillation on the monitor at bedside. Heart rate is between 98-1 14.) Physical Exam Const alert and oriented x3 Constitutional Narrative: Very ill appearing cachectic female. Noted muscle wasting some clavicular area with hollowing in the temples and cheeks. General Appearance: cooperative and ill appearing Orientation / Consciousness: awake, oriented to person, oriented to place and oriented to time Nutritional Appearance: cachectic HEENT normocephalic Eyes PERRL Neck General: trachea midline Lymph Lymphatic: lymphedema Resp Effort and Inspection: tachypneic Auscultation: diminished lung sounds Cardio Rate: tachycardic Rhythm: abnormal rhythm GI Inspection: abdominal distention Palpation: tender and splenomegaly Extremity no calf tenderness Skin no rashes or lesions noted Skin Narrative: pale Neuro oriented x3, CN's II-XII intact bilaterally and moves all extremities Neuro Narrative: Weakness Motor Exam: general weakness Psych affect normal Mood & Affect: depressed Charges/Coding Palliative Care Palliative Care: [id number] Follow up 35-49 min Consulation Summary Current admission Current Code Status: full code Associated Diagnosis: metastatic cancer Consult Data Date of Consult: 01/31/25 Location of consult: ICU Reason for referral: Goals of care and CODE STATUS discussion Referral source: Dr. Rubin Palliative care diagnosis (Summary list): Lymphoma Palliative care services/treatment (Accepted, as consult): Accepted Case discussed with referring provider: with social work/CM Palliative Assessment Advanced Directive - Current Admission Advance Directive: Advance Directive ON ADMISSION - REFERENCE Do you have a Healthcare No 01/25/25 00:30 Living Will? Do you have a Healthcare Power No 01/25/25 13:32 of Project Technician? Do You Want Additional Yes 01/25/25 00:30 Information on Advanced Directives or Healthcare Proxy/DPOA comments: Daughter Symptoms Dyspnea symptoms: Moderate Constipation symptoms: Mild Nausea symptoms: Mild Vomiting symptoms: None Depression symptoms: Mild Anorexia symptoms: Moderate Cough symptoms: None Insomnia symptoms: Mild Fatigue symptoms: Severe Weakness symptoms: Severe Confusion symptoms: None Impression & Recommendations Impressions Impressions: Patient's daughter is experiencing anticipatory grieving. Recommentation Palliative recommendations: Patient would benefit for hospice, if she so chooses. Recommend outpatient palliative care Encouter Achieved as a result of this Palliative Care Encounter: [[id number], [id number], ] minutes were spent in total for this visit which consisted, primarily of counseling and education dealing with the complex and emotionally intense issues of symptom management and palliative care in the setting of serious and potentially life-threatening illness. Review of documentation, labs and radiological studies. ?Patient/family had the opportunity to ask questions Plan (1) Shock: (2) Acidosis, lactic: (3) Lymphedema of both lower extremities: (4) Tachycardia: (5) Adult failure to thrive: (6) Signs and symptoms of anemia: (7) Symptomatic anemia: (8) Pancytopenia: (9) Mantle cell lymphoma: QUALIFIERS: Lymphoma site: multiple regions Qualified Code(s): C83.18 - Mantle cell lymphoma, lymph nodes of multiple sites (10) Humoral hypercalcemia of malignancy: (11) Goals of care, counseling/discussion: (12) Palliative care encounter: PLAN: Plan *Goals of care discussion with no pertinent outcome *CODE STATUS discussion. Patient remains full code at this time *Provided information about current medical status with an attempt to have goals of care conversation that was unsuccessful on initial visit *Provided information about options going forward *I do feel that the patient and her family are in various stages of grieving. Currently denial/anger. *Recommend outpatient palliative care services *Brochures given with list of agencies in her area. ROS ROS Narrative 10 systems were reviewed with pertinent positives as noted in the HPI above. Constitutional Constitutional: Reports body ache(s), change in weight, fatigue, malaise, poor appetite, weakness, weight loss and other Details: Patient reported initial weight loss despite preserved appetite and later on weight gain due to increasing edema ; Denies chills, fever(s) or night sweats Eyes Eyes: Reports systems reviewed and no addt'l complaints, except as documented; Denies blurry vision, change in vision or diplopia ENT HEENT: Reports systems reviewed and no addt'l complaints, except as documented; Denies dysphagia, ear pain, rhinorrhea or sore throat Cardiovascular Cardiovascular: Reports dyspnea, edema and leg edema; Denies chest pain, orthopnea, palpitations, paroxysmal nocturnal dyspnea or racing heartbeat Respiratory/Chest Respiratory/Chest: Reports dyspnea, dyspnea on exertion and shortness of breath at rest; Denies cough, productive cough or wheezing Gastrointestinal Gastrointestinal: Reports as per HPI, abdominal pain and nausea; Denies change in bowel habits, constipation, diarrhea, melena or vomiting Genitourinary Genitourinary: Reports as per HPI, change in urinary stream, urinary frequency and other Details: Patient reports increasing frequency and volume of urine with diuresis ; Denies dysuria or hematuria Musculoskeletal Musculoskeletal: Reports as per HPI and back pain; Denies arthralgias or myalgias Integumentary Integumentary: Reports as per HPI; Denies rash Neurologic Neurologic: Reports systems reviewed and no addt'l complaints, except as documented, abnormal speech and weakness; Denies dizziness, focal weakness, headache(s) or paresthesias Psychiatric Psychiatric: Reports depression Endocrine Endocrinology: Reports as per HPI Hematologic/Lymphatic Hematologic/Lymphatic: Reports systems reviewed and no addt'l complaints, except as documented, as per HPI and lymphadenopathy Allergic/Immunologic Allergic/Immunologic: Reports systems reviewed and no addt'l complaints, except as documented
--- NOTE | 2025-02-05 15:07 | PCM.DC.SUM ---
Providers Date of Admission: 01/24/25 Date of Discharge: 02/05/25 Primary Care Physician: Vidal Ling, DAVID Consultations 01/25/25 00:30 Consult: Oncology/Hematology Routine Consulting Provider: [facility] ([facility]) Reason for Consult: lymphoma w/ anasarca, pancytopenia and lactic acidosis EMERGENT Consult: No MD Notified: Yes Date Notified: 01/24/25 Time Notified: 23:08 Method of Notification: Answering Service 01/25/25 06:04 Consult: Superintendent Marine / Pulmonary Medicine Routine Consulting Provider: Int[facility]ivists/Pulmonary Med Reason for Consult: elevated lactic EMERGENT Consult: No MD Notified: Yes Date Notified: 01/25/25 Time Notified: 06:04 Method of Notification: Text 01/25/25 06:06 Consult: Superintendent Marine / Pulmonary Medicine Routine Consulting Provider: Intensivists/Pulmonary Med Reason for Consult: elevated lactic EMERGENT Consult: No MD Notified: Yes Date Notified: 01/25/25 Time Notified: 06:07 Method of Notification: Text 01/25/25 07:12 Consult: Inpatient Palliative Care Routine Consulting Provider: Amelia Caruso Reason for Consult: Assist with goals of care EMERGENT Consult: No MD Notified: Yes Date Notified: 01/25/25 Time Notified: 07:13 Method of Notification: Text 01/31/25 12:14 Consult: General Surgery Routine Consulting Provider: Braeden Lou Reason for Consult: free air in the abdomen EMERGENT Consult: No MD Notified: Yes Date Notified: 01/31/25 Time Notified: 12:15 Method of Notification: Verbal Reason For Visit: SEVERE LACTIC ACIDOSIS AND ANASCARA IN SETTING OF Diagnosis Discharge Diagnosis (1) Shock: Status: Acute Code(s): R57.9 - Shock, unspecified (2) Acidosis, lactic: Status: Acute Code(s): E87.20 - Acidosis, unspecified (3) Lymphedema of both lower extremities: Status: Acute Code(s): I89.0 - Lymphedema, not elsewhere classified (4) Tachycardia: Status: Acute Code(s): R00.0 - Tachycardia, unspecified (5) Adult failure to thrive: Status: Acute Code(s): R62.7 - Adult failure to thrive (6) Signs and symptoms of anemia: Status: Acute Code(s): R68.89 - Other general symptoms and signs (7) Symptomatic anemia: Status: Acute Code(s): D64.9 - Anemia, unspecified (8) Pancytopenia: Status: Acute Code(s): D61.818 - Other pancytopenia (9) Mantle cell lymphoma: Status: Chronic Code(s): C83.10 - Mantle cell lymphoma, unspecified site Qualifiers: Lymphoma site: multiple regions Qualified Code(s): C83.18 - Mantle cell lymphoma, lymph nodes of multiple sites (10) Humoral hypercalcemia of malignancy: Status: Acute Code(s): E83.52 - Hypercalcemia (11) Goals of care, counseling/discussion: Status: Acute Code(s): Z71.89 - Other specified counseling (12) Palliative care encounter: Status: Acute Code(s): Z51.5 - Encounter for palliative care Plan Patient is a 69-year-old female with history of mantle cell lymphoma who presented with worsening weakness and volume overload. 1. Mantle cell lymphoma -Had port placed with plan to initiate chemotherapy with bendamustine/rituxin on 01/25. Has had worsening weakness and volume overload presumably secondary to her cancer. CT chest abdomen pelvis on admit showed known massive splenomegaly and known diffuse retroperitoneal lymphadenopathy with worsening moderate bilateral pleural effusions and diffuse ascites. Case was discussed with oncologist Dr. Nogueira patient started prophylactically on allopurinol to decrease her risk of tumor lysis syndrome. Plan is to initiate chemo in the hospital ? 01/26/2025;Patient was started on IV fluid in anticipation of initiation of her chemo. Patient is also on allopurinol to prevent tumor lysis syndrome given the heavy burden of her tumor ? 01/27/2025 patient was started on chemotherapy with Bendamustine Rituxan on 01/26/2025. Patient LDH markedly elevated at 1066. Case discussed with oncology Dr. Nogueira ? 01/28/2025: Patient has completed her first cycle of chemotherapy. Plan is for second cycle starting 03/01/2025. Patient to call to schedule. ? 01/29/2025; patient BUN trending up restarted IV fluids. ? 01/30/2025; patient still on IV fluid BUN at 35, Slight improvement from the day prior. ? 01/31/2025; patient complaining of intense abdominal pain CT of the abdomen and pelvis ordered for subsequent eval 3. Pancytopenia ? Malignancy related monitoring with daily CBC with differential ? 01/26/2025; with patient hemoglobin dropping to 6.6, an order was given for patient to be transfused 1 unit PRBC. ? 01/27/2025; patient hemoglobin up to 7.8 platelet count is however down to 32. Patient is on Granix ordered by oncology ? 01/28/2025; patient platelet count up to 42, Hemoglobin remains low at 8.0. Repeat CBC with differential ordered for a.m. ? 01/29/2025; patient WBC count up to 3.8, hemoglobin 8.7 and platelet count 45 ? 01/30/2025; cell counts compared to previous ? 02/03/2025; patient WBC count up to 19K patient is on Granix (scheduled to receive 10 doses). Hemoglobin is 8.1 with platelet count of, 131 3. Acute on chronic congestive heart failure with preserved ejection ? 2D echo ordered for EF assessment. Patient CHF precipitated by volume overload. Patient has been receiving intermittent furosemide ? 01/28/2025 patient 2D echo demonstrated Normal LV size. The left ventricular ejection fraction is 65 %. Stage 1 diastolic dysfunction. Structurally normal valves. ? 02/01/2025; patient has been managed intermittently with diuretic therapy 4. Anasarca ? Related to patient significant tumor burden. Patient has been started on diuretic therapy however this was discontinued after discussion with both oncology as well as exhibitions and collections manager given patient high risk for tumor lysis syndrome ? 02/02/2025; patient to undergo both thoracocentesis as well as paracentesis on 02/04/2024 ? 02/05/2024; patient underwent thoracocentesis as well as paracentesis. She had 1590 mL of yandel-colored fluid taken from the right pleural space, And 2700 mL of blood-tinged fluid aspirated from the abdomen fluid analysis sent. Repeat imaging studies ordered for this a.m. to evaluate for possible thoracocentesis involving the left pleural space 5. Lactic acidosis ? Related to patient underlying malignancy patient symptoms not consistent with sepsis 6. Hyperuricemia ? Secondary to heavy tumor burden. Patient is on allopurinol to prevent tumor lysis syndrome in addition to IV hydration 7. Humoral hypercalcemia of malignancy ? Patient calcium level on 12/22/2024 was 12.2 down to 8.5 with treatment 8. COPD ? Not in exacerbation aerosol treatment as needed 9. Vitamin D deficiency ? Patient is on cholecalciferol supplements q. monthly 11. GERD ? Patient is on PPI 9.DVT prophylaxis ? On enoxaparin ? 01/28/2024; enoxaparin discontinued given significant drop in patient platelet counts ?. 02/04/2025 case was discussed with oncology the day prior plan was to have started enoxaparin however there is a slight drop in patient platelet count as well as hemoglobin will therefore hold on enoxaparin for an additional day 10. Hypophosphatemia ? Patient started on oral phosphate binders ? Patient responded to treatment will repeat phosphate levels in a.m. 11. Acute cystitis with Enterobacter and E. coli ? Patient remains on appropriate antibiotic therapy 12. Abdominal pain ? Ordered CT of the abdomen and pelvis with oral contrast findings included 02/01/2025 larger pleural effusions and compressive atelectasis compared with the previous study. Similar right renal collecting system dilatation and nonobstructing calculi. Probable large volume intra-abdominal ascites There are a few small locules of free air noted in the abdomen anteriorly which is of uncertain significance. Based on above consult was placed to general surgery case discussed with Dr. Lou. Patient was kept n.p.o. with plans to repeat imaging studies 13. Ascites ? Plan is for patient to undergo ultrasound-guided paracentesis, With body fluid analysis and 14. Bilateral pleural effusion ? Plan is for patient to undergo ultrasound-guided thoracocentesis with body fluid analysis sent 15. Hypokalemia ? Secondary to patient receiving diuretic therapy corrected per protocol 16. Hypophosphatemia Secondary to use of phosphate binders discontinued. Time spent in the patient's overall evaluation,decision-making process, review of diagnostic data, adjustment of management, discussion with other providers, nursing nursing and ancillary staff involved in patient's care documentation, 38 Minutes Medications at Discharge Home Medications cholecalciferol (vitamin D3) 1,250 mcg (50,000 unit) capsule 1,250 mcg PO QMONTH [facility] 11/26/24 vitamin B complex 1 tab PO QDAY FOR ENERGY 11/26/24 mv-mn [id number] 1 tab PO DAILY SUPPLEMENT 12/07/24 pantoprazole 40 mg tablet,delayed release 40 mg PO DAILY STOMACH 12/07/24 allopurinol 300 mg tablet 300 mg PO QDAY #7 tabs 01/14/25 lidocaine-prilocaine 2.5 %-2.5 % topical cream 1 applic topical ONCE PRN port access 30 days #30 grams 01/14/25 ondansetron 8 mg disintegrating tablet 8 mg PO Q8H PRN nausea and vomiting #30 tabs 01/14/25 acetaminophen 325 mg tablet 650 mg (2 x 325 mg) PO Q6H PRN PRN Pain 1-10 Or Fever>100.7 #0 tabs 02/05/25 furosemide 40 mg tablet (Lasix) 40 mg PO DAILY #1 TAB 02/05/25 melatonin 3 mg tablet 3 mg PO QHS PRN PRN Insomnia #0 tabs 02/05/25 potassium chloride 20 mEq tablet,extended release(part/cryst) 20 meq PO BIDCM #0 tabs 02/05/25 Physical Exam Narrative GENERAL: But frail looking HEENT: Atraumatic; normocephalic EYES; Anicteric, Normal Conjunctiva NECK; supple, normal thyroid, RESPIRATORY: Diminished to auscultation CARDIOVASCULAR: Regular S1 S2, GI: soft, normoactive bowel sounds, : No Renal angle tenderness; EXTREMITIES: Bilateral pedal edema no clubbing, MUSCULOSKELETAL: no muscle wasting NEURO: Awake; no lateralizing signs. SKIN: No Rash PSYCH; Flat affect Weight / BMI Weight Weight: 61 kg Body Mass Index (BMI) 21.0 ABG / Lab / Microbiology Data 02/05/25 04:51 02/05/25 04:51 Laboratory: Laboratory Results - last 24 hr 02/05/25 04:51: WBC 10.5, RBC 2.41 L, Hgb 7.8 L, Hct 25.8 L, MCV 107.1 H, MCH 32.4 H, MCHC 30.2 L, RDW Std Deviation 68.3 H, RDW Coeff of Jeffery 17.3 H, Plt Count 148 L, MPV 11.3, Immature Gran % (Auto) 1.500 H, Neut % (Auto) 92.4 H, Lymph % (Auto) 0.9 L, Hendry % (Auto) 4.0, Eos % (Auto) 0.8, Baso % (Auto) 0.4, Absolute Neuts (auto) 9.7 H, Absolute Lymphs (auto) 0.09 L, Nucleated RBC % 0, Sodium 144, Potassium 3.3, Chloride 106, Carbon Dioxide 32.5 H, Anion Gap 6, BUN 11, Creatinine 0.59 L, Estim Creat Clear Calc 64.81, Est GFR (MDRD) Non-Af 98, BUN/Creatinine Ratio 18.3, Glucose 87, Calcium 7.8, Phosphorus 1.7 L, Magnesium 1.9 Microbiology: Microbiology 01/24/25 23:13 Blood Culture (Wb) - Anticubital Left Blood Culture - Final No growth in 5 days. 01/24/25 23:15 Blood Culture (Wb) - Anticubital Right Blood Culture - Final No growth in 5 days. 01/25/25 11:15 Urine, Clean Catch Urine Culture - Final Enterobacter cloacae complex Escherichia coli 01/25/25 11:15 Stool Stool Occult Blood (EDEN) - Final Occult Blood Positive D/C Instructions DC O2, CPAP, BIPAP Needs Home O2 Discharge instructions: No Meaningful Use Info Meaningful Use Meaningful Use Diagnoses (Choose all that apply): CHF CHF MARYLOU/ARB ordered at discharge?: No Reason MARYLOU/ARB not ordered?: Not indicated Documented LVEF (%): 65 Discharge Plan Admission Admit Date/Time: 01/24/25 23:04 Attending Provider: Godfrey Calles Primary Care Provider: Vidal Ling NP Consulting Providers: Ralf Pate; Amelia Caruso; Jose Holden; Micky Franklin; Joaquim Huerta; Yovani Rubin; Godfrey Couch; Cheri Powell; Judson Lira; Patrice Saba; Brett Isbell; Viridiana Pastor; Ari Bradley; Rudy Myers; Yamilet Enamorado; Oneil Romano; Andrew Schwartz; David Witt; Shaniqua Dolan; Vandana Bustamante; Lise Clemente; Lucero Vazquez; Harriet Ureña; Walt Szymanski; Kandi Rae; Mariza Nuñez; Ventura Ingram; Carolina Arredondo; Kandi Gibson; Canelo Abraham; Derian Laguna; Be Moore; Yemi Ernandez; Renny Henriquez; Catrachito Marie; Thierry Mora; Bhavin Valladares; Char Snider; ThaoSamelana; Wilmer Quinteros; Tracee,Scot; Donovan Skelton; Isamar Pérez; Romulo Siu; Godfrey Damico; Farshad Dan; Jadiel Burns; Ten Nogueira; Gaurav Wills; Darin Quinones; Marshal Reddy; Ranjit Harden; Rolf Schultz; Carmencita Ivy NP; Braeden Lou Instructions Patient Instructions: DIEGO OLMOS Paracentesis Dc, DIEGO OLMOS Thoracentesis Dc Discharge Orders/Prescriptions Prescriptions: New acetaminophen 325 mg Tablet 650 mg PO Q6H PRN PRN (Reason: Pain 1-10 Or Fever>100.7) Qty: 0 0RF melatonin 3 mg Tablet 3 mg PO QHS PRN PRN (Reason: Insomnia) Qty: 0 0RF potassium chloride 20 mEq Tablet,Er Particles/Crystals 20 meq PO BIDCM Qty: 0 0RF furosemide [Lasix] 40 mg tablet 40 mg PO DAILY Qty: 1 0RF Continued vitamin B complex Tablet 1 tab PO QDAY cholecalciferol (vitamin D3) 1,250 mcg (50,000 unit) capsule 1,250 mcg PO QMONTH ondansetron 8 mg tablet,disintegrating 8 mg PO Q8H PRN (Reason: nausea and vomiting) Qty: 30 2RF lidocaine-prilocaine 2.5-2.5 % cream 1 applic topical ONCE PRN (Reason: port access) 30 Days Qty: 30 2RF allopurinol 300 mg tablet 300 mg PO QDAY Qty: 7 0RF Patient Comments: starting 01/24/2025 Rx Instructions: Start on 01/24/25 pantoprazole 40 mg tablet,delayed release (DR/EC) 40 mg PO DAILY mv-mn [id number] [Centrum ] 1 tab PO DAILY Discontinued potassium chloride 20 mEq tablet,ER particles/crystals 20 meq PO DAILY Qty: 3 0RF tramadol 50 mg tablet 50 mg PO Q6H PRN (Reason: pain) 2 Days Qty: 5 0RF Referrals / Follow Up: Be Moore MD [Med Staff - Contracted, Pulmonary Medicine] - Within 2 Weeks Vidal Ling NP, PAIN MEDICINE PHYSICIAN-C [Primary Care Provider, [facility] - Within 2 Weeks Disposition Disposition (needs filled in before D/C Order can be placed): Nursing Home Facility Charges/Coding Visit Charges Inpatient E&M: 39630 Disch Hosp >30min
--- NOTE | 2025-02-05 15:19 | CASEMGMT ---
Social Work Patient was approved to DC to TCU. The patient, nurse and physician have been notified. VALENTIN Crow
--- NOTE | 2025-02-05 15:20 | TREXTCAR_ITS ---
Diet Diet Order/Speech Therapy: INPATIENT Hospital Diet / Speech Therapy Order(s) 02/04/25 10:57 Diet: Regular - General Type of Dietary Supplement:: Ensure Plus High Protein Diet Comments: 120mL Ensure Plus w/meals - vanilla or strawberry DC O2, CPAP, BIPAP needs Home O2 Discharge instructions: No Therapies Physical Therapy: Eval and Treat Occupational Therapy: Eval and Treat Problem/Diagnosis (1) Shock: Status: Acute Code(s): R57.9 - Shock, unspecified (2) Acidosis, lactic: Status: Acute Code(s): E87.20 - Acidosis, unspecified (3) Lymphedema of both lower extremities: Status: Acute Code(s): I89.0 - Lymphedema, not elsewhere classified (4) Tachycardia: Status: Acute Code(s): R00.0 - Tachycardia, unspecified (5) Adult failure to thrive: Status: Acute Code(s): R62.7 - Adult failure to thrive (6) Signs and symptoms of anemia: Status: Acute Code(s): R68.89 - Other general symptoms and signs (7) Symptomatic anemia: Status: Acute Code(s): D64.9 - Anemia, unspecified (8) Pancytopenia: Status: Acute Code(s): D61.818 - Other pancytopenia (9) Mantle cell lymphoma: Status: Chronic Code(s): C83.10 - Mantle cell lymphoma, unspecified site (10) Humoral hypercalcemia of malignancy: Status: Acute Code(s): E83.52 - Hypercalcemia (11) Goals of care, counseling/discussion: Status: Acute Code(s): Z71.89 - Other specified counseling (12) Palliative care encounter: Status: Acute Code(s): Z51.5 - Encounter for palliative care Plan Patient is a 69-year-old female with history of mantle cell lymphoma who presented with worsening weakness and volume overload. 1. Mantle cell lymphoma -Had port placed with plan to initiate chemotherapy with bendamustine/rituxin on 01/25. Has had worsening weakness and volume overload presumably secondary to her cancer. CT chest abdomen pelvis on admit showed known massive splenomegaly and known diffuse retroperitoneal lymphadenopathy with worsening moderate bilateral pleural effusions and diffuse ascites. Case was discussed with oncologist Dr. Nogueira patient started prophylactically on allopurinol to decrease her risk of tumor lysis syndrome. Plan is to initiate chemo in the hospital ? 01/26/2025;Patient was started on IV fluid in anticipation of initiation of her chemo. Patient is also on allopurinol to prevent tumor lysis syndrome given the heavy burden of her tumor ? 01/27/2025 patient was started on chemotherapy with Bendamustine Rituxan on 01/26/2025. Patient LDH markedly elevated at 1066. Case discussed with oncology Dr. Nogueira ? 01/28/2025: Patient has completed her first cycle of chemotherapy. Plan is for second cycle starting 03/01/2025. Patient to call to schedule. ? 01/29/2025; patient BUN trending up restarted IV fluids. ? 01/30/2025; patient still on IV fluid BUN at 35, Slight improvement from the day prior. ? 01/31/2025; patient complaining of intense abdominal pain CT of the abdomen and pelvis ordered for subsequent eval 3. Pancytopenia ? Malignancy related monitoring with daily CBC with differential ? 01/26/2025; with patient hemoglobin dropping to 6.6, an order was given for patient to be transfused 1 unit PRBC. ? 01/27/2025; patient hemoglobin up to 7.8 platelet count is however down to 32. Patient is on Granix ordered by oncology ? 01/28/2025; patient platelet count up to 42, Hemoglobin remains low at 8.0. Repeat CBC with differential ordered for a.m. ? 01/29/2025; patient WBC count up to 3.8, hemoglobin 8.7 and platelet count 45 ? 01/30/2025; cell counts compared to previous ? 02/03/2025; patient WBC count up to 19K patient is on Granix (scheduled to receive 10 doses). Hemoglobin is 8.1 with platelet count of, 131 3. Acute on chronic congestive heart failure with preserved ejection ? 2D echo ordered for EF assessment. Patient CHF precipitated by volume overload. Patient has been receiving intermittent furosemide ? 01/28/2025 patient 2D echo demonstrated Normal LV size. The left ventricular ejection fraction is 65 %. Stage 1 diastolic dysfunction. Structurally normal valves. ? 02/01/2025; patient has been managed intermittently with diuretic therapy 4. Anasarca ? Related to patient significant tumor burden. Patient has been started on diuretic therapy however this was discontinued after discussion with both oncology as well as truck guard given patient high risk for tumor lysis syndrome ? 02/02/2025; patient to undergo both thoracocentesis as well as paracentesis on 02/04/2024 ? 02/05/2024; patient underwent thoracocentesis as well as paracentesis. She had 1590 mL of yandel-colored fluid taken from the right pleural space, And 2700 mL of blood-tinged fluid aspirated from the abdomen fluid analysis sent. Repeat imaging studies ordered for this a.m. to evaluate for possible thoracocentesis involving the left pleural space 5. Lactic acidosis ? Related to patient underlying malignancy patient symptoms not consistent with sepsis 6. Hyperuricemia ? Secondary to heavy tumor burden. Patient is on allopurinol to prevent tumor lysis syndrome in addition to IV hydration 7. Humoral hypercalcemia of malignancy ? Patient calcium level on 12/22/2024 was 12.2 down to 8.5 with treatment 8. COPD ? Not in exacerbation aerosol treatment as needed 9. Vitamin D deficiency ? Patient is on cholecalciferol supplements q. monthly 11. GERD ? Patient is on PPI 9.DVT prophylaxis ? On enoxaparin ? 01/28/2024; enoxaparin discontinued given significant drop in patient platelet counts ?. 02/04/2025 case was discussed with oncology the day prior plan was to have started enoxaparin however there is a slight drop in patient platelet count as well as hemoglobin will therefore hold on enoxaparin for an additional day 10. Hypophosphatemia ? Patient started on oral phosphate binders ? Patient responded to treatment will repeat phosphate levels in a.m. 11. Acute cystitis with Enterobacter and E. coli ? Patient remains on appropriate antibiotic therapy 12. Abdominal pain ? Ordered CT of the abdomen and pelvis with oral contrast findings included 02/01/2025 larger pleural effusions and compressive atelectasis compared with the previous study. Similar right renal collecting system dilatation and nonobstructing calculi. Probable large volume intra-abdominal ascites There are a few small locules of free air noted in the abdomen anteriorly which is of uncertain significance. Based on above consult was placed to general surgery case discussed with Dr. Lou. Patient was kept n.p.o. with plans to repeat imaging studies 13. Ascites ? Plan is for patient to undergo ultrasound-guided paracentesis, With body fluid analysis and 14. Bilateral pleural effusion ? Plan is for patient to undergo ultrasound-guided thoracocentesis with body fluid analysis sent 15. Hypokalemia ? Secondary to patient receiving diuretic therapy corrected per protocol 16. Hypophosphatemia Secondary to use of phosphate binders discontinued. Time spent in the patient's overall evaluation,decision-making process, review of diagnostic data, adjustment of management, discussion with other providers, nursing nursing and ancillary staff involved in patient's care documentation, 38 Minutes Allergies/Procedures Done in Hospital Allergies moxifloxacin (From Avelox) Allergy (Unknown, Verified 01/24/25 15:27) unknown terbinafine Allergy (Unknown, Verified 01/24/25 15:27) rash Type of Care/Length of Stay Estimated LOS: Convalescent Care Less Than 30 days Type of Care Needed: Skilled Rehab Potential: Good Prognosis: Good Additional Orders/Day of Discharge Day of Discharge: 02/05/25 Dietary and Speech Recommendations Dietitian Recommendations/Changes: Will order Regular diet per Dr. Calles to optimize oral intakes. Will discontinue 120mL Ensure Clear 4x daily d/t diet advancement. Will order 120mL Ensure Clear TID (no chocolate) with meals to supplement oral intakes. Discharge Plan Admission Admit Date/Time: 01/24/25 23:04 Attending Provider: Godfrey Calles Primary Care Provider: Vidal Ling VICE PRESIDENT OF INSTRUCTION Consulting Providers: Ralf Pate; Amelia Caruso; Jose Holden; Micky Franklin; Joaquim Huerta; Yovani Rubin; Godfrey Couch; Cheri Powell; Judson Lira; Patrice Saba; Brett Isbell; Viridiana Pastor; Ari Bradley; Rudy Myers; Yamilet Enamorado; Oneil Narvaez; Andrew Schwartz; David Witt; Shaniqua Dolan; Vandana Bustamante; Lise Clemente; Lucero Vazquez; Harriet Ureña; Walt Szymanski; Kandi Rae; Mariza Nuñez; Ventura Ingram; Carolina Arredondo; Kandi Gibson; Canelo Abraham; Derian Laguna; Be Moore; Yemi Salcido; Renny Henriquez; Catrachito Marie; Thierry Mora; Bhavin Valladares; Char Snider; Stephania Osuna; Wilmer Quinteros; Tracee,Scot; Donovan Skelton; Isamar Pérez; Romulo Siu; Godfrey Damico; Farshad Dan; Jadiel Burns; Ten Nogueira; Gaurav Wills; Darin Quinones; Marshal Reddy; Ranjit Harden; Rolf Schultz; Carmencita Ivy NP; Braeden Lou Instructions Patient Instructions: DIEGO OLMOS Paracentesis Dc, DIEGO OLMOS Thoracentesis Dc Discharge Orders/Prescriptions Prescriptions: New acetaminophen 325 mg Tablet 650 mg PO Q6H PRN PRN (Reason: Pain 1-10 Or Fever>100.7) Qty: 0 0RF melatonin 3 mg Tablet 3 mg PO QHS PRN PRN (Reason: Insomnia) Qty: 0 0RF potassium chloride 20 mEq Tablet,Er Particles/Crystals 20 meq PO BIDCM Qty: 0 0RF furosemide [Lasix] 40 mg tablet 40 mg PO DAILY Qty: 1 0RF Continued vitamin B complex Tablet 1 tab PO QDAY cholecalciferol (vitamin D3) 1,250 mcg (50,000 unit) capsule 1,250 mcg PO QMONTH ondansetron 8 mg tablet,disintegrating 8 mg PO Q8H PRN (Reason: nausea and vomiting) Qty: 30 2RF lidocaine-prilocaine 2.5-2.5 % cream 1 applic topical ONCE PRN (Reason: port access) 30 Days Qty: 30 2RF allopurinol 300 mg tablet 300 mg PO QDAY Qty: 7 0RF Patient Comments: starting 01/24/2025 Rx Instructions: Start on 01/24/25 pantoprazole 40 mg tablet,delayed release (DR/EC) 40 mg PO DAILY [id number] [Centrum ] 1 tab PO DAILY Discontinued potassium chloride 20 mEq tablet,ER particles/crystals 20 meq PO DAILY Qty: 3 0RF tramadol 50 mg tablet 50 mg PO Q6H PRN (Reason: pain) 2 Days Qty: 5 0RF Referrals / Follow Up: Be Moore MD [Med Staff - Contracted, Pulmonary Medicine] - Within 2 Weeks Vidal Ling NP, VICE PRESIDENT OF INSTRUCTION-C [Primary Care Provider, [facility]] - Within 2 Weeks Disposition Disposition (needs filled in before D/C Order can be placed): [facility] (9) Mantle cell lymphoma Qualifiers: Lymphoma site: multiple regions Qualified Code(s): C83.18 - Mantle cell lymphoma, lymph nodes of multiple sites
[2025-02-05 15:39] VITALS: BP 111/73; PULSE 89; RESP 18; TEMP 36.4; O2SAT 93
--- NOTE | 2025-02-05 16:01 | NURSING ---
Report called to nurse Whipple for pt to be transferred to TCU.
== END 2025-02-05 16:20 | disposition skilled nursing facility (03) | DRG 840 ==
LOC: ED 23:17 → ICU 23:37 → PCU 01-28 10:53
PROVIDERS: Internal Medicine; Internal Medicine Critical Care Medicine; Internal Medicine Hematology & Oncology; Admitting Provider Hospitalist; Emergency Provider Emergency Medicine; PCP Nurse Practitioner Family; Visit Provider Internal Medicine
DX: C83.18 Mantle cell lymphoma, lymph nodes of multiple sites (principal); I50.33 Acute on chronic diastolic (congestive) heart failure; D61.818 Other pancytopenia; E87.20 Acidosis, unspecified; J91.8 Pleural effusion in other conditions classified elsewhere; R18.8 Other ascites; N13.30 Unspecified hydronephrosis; N30.00 Acute cystitis without hematuria; K66.8 Other specified disorders of peritoneum; Z51.5 Encounter for palliative care; I11.0 Hypertensive heart disease with heart failure; J43.9 Emphysema, unspecified; F32.A Depression, unspecified; K21.9 Gastro-esophageal reflux disease without esophagitis; E55.9 Vitamin D deficiency, unspecified; E87.6 Hypokalemia; I89.0 Lymphedema, not elsewhere classified; F17.210 Nicotine dependence, cigarettes, uncomplicated; E83.52 Hypercalcemia; R62.7 Adult failure to thrive; R16.1 Splenomegaly, not elsewhere classified; Z79.899 Other long term (current) drug therapy; B96.20 Unspecified Escherichia coli [E. coli] as the cause of diseases classified elsewhere; B96.89 Other specified bacterial agents as the cause of diseases classified elsewhere; T50.2X5A Adverse effect of carbonic-anhydrase inhibitors, benzothiadiazides and other diuretics, initial encounter; E79.0 Hyperuricemia without signs of inflammatory arthritis and tophaceous disease
CPT/HCPCS: 32555; 36415; 49083; 71045; 71046; 71275; 74174; 74177; 80048; 80053; 80076; 81001; 82040; 82042; 82274; 82945; 83605; 83615; 83735; 83880; 84100; 84157; 84484; 84550; 85014; 85018; 85025; 85049; 85610; 85730; 86850; 86900; 86901; 87040; 87077; 87086; 87088; 87186; 88108; 88305; 88313; 89050; 93005; 93306; 94668; 94762; 97110; 97116; 97162; 97166; 97530; 97535; 97803; 99285; 99406; J9034; P9016; Q9967; A4216; J1447; J1938; J2405; J2469; Q5115

== ENCOUNTER 2025-02-05 16:30 | Inpatient (IN) | payer OTHER, MEDICARE, SELFPAY ==
--- OUTSIDE RECORDS SUMMARY | 2025-02-05 16:52 | XMS RPT_ITS | CCD ---
Author Organization [facility] Care Team Providers Care Equipment Services Associate Name Role Phone RANJITH HINES APRN, CNP Primary Care Phys ician Ranjith Ling CNP Primary Care Provider Ranjith Ling CNP Primary Care Provider [phone] ANURADHA JOHNSON - RANJITH VASQUEZ Primary Care [...] - RANJITH VASQUEZ Primary Care U navailable AnuradhaRanjith engle CNP Primary Care Provider [phone] RANJITH LING Primary Care Unavailable TO ALCARAZ Attending Unavailable RANJITH LING Referring Unavailable PROVIDER, UNKNOWN Attending Unavailable PROVIDER, UNKNOWN Admitting Unavailable Anuradha AUDIT INTERN-CRanjith Primary Care Physi lalitha Dr. Jeronimo Perez MD Attending Physician Dr. Jeronimo Perez MD Referring Provider Allegra Hylton Attending Physician Unavailable Moris LOPEZ, Dr. Roa Emergency Department Physician ANURADHA JOHNSON - RANJITH VASQUEZ Attending U navailable ANURADHAKAMARI JOHNSON - RANJITH VASQUEZ Primary Care U navailable ANURADHA RADIO INSTALLER AUTOMOBILE - HOPPER FEEDERRANJITH Attending U navailable ANURADHA RADIO INSTALLER AUTOMOBILE - HOPPER FEEDER, RANJITH Smith Primary Care U navailable ANURADHA RADIO INSTALLER AUTOMOBILE - HOPPER FEEDER, RANJITH Smith Primary Care U navailable ANURADHA RADIO INSTALLER AUTOMOBILE - HOPPER FEEDER, RANJITH Smith Attending U navailable Anuradha AUDIT INTERN-C, Ranjith Maximus Primary Care Physi lalitha Nelida LOPEZ, Dr. Decker Attending Physician [phone] Nelida LOPEZ, Dr. Decker Referring Provider Allegra Hylton Attending Physician Unavailable Moris LOPEZ, Dr. Roa Attending Physician Moris LOPEZ, Dr. Roa Emergency Department Physician Anuradha AUDIT INTERN-C, Ranjith Stroud Referring Provider Jero LOPEZ, Dr. Caal Attending Physician Emre LOPEZ, Dr. Madera Attending Physician Jero LOPEZ, Dr. Caal Referring Provider Emre LOPEZ, Dr. Madera Referring Provider Mathews, Ranjith Maximus Referring Unavail able Mathews, Ranjith Struod Primary Care Unavail able Cassy Andrea Attending Unavailable Mathews, Ranjith Marcelinonis Referring Unavail able BriannekarTen lr Attending Unavailable Anuradha, Ranjith Marcelinonis Primary Care Unavail able Mathews, Ranjith Stroud Primary Care Unavail able Cassy Andrea Attending Unavailable BriannekarTen lr Attending Unavailable Briannekarus, Ten Referring Unavailable Anuradha, Ranjith Marcelinonis Primary Care Unavail able IsckarusTen Attending Unavailable Isckarus, Mansour Referring Unavailable Mathews, Ranjith Stroud Primary Care Unavail able Jeronimo Perez Attending Unavailable Nelida, Jeronimo Referring Unavailable Mathews, Ranjith Marcelinonis Primary Care Unavail able Anuradha, Ranjith Maximus Consulting Unavail able Jeronimo Perez Attending Unavailable Joribour, Jeronimo Referring Unavailable Anuradha, Ranjith Maximus Primary Care Unavail able Mathews, Ranjith Maximus Primary Care Unavail able RobotCassy zarate Attending Unavailable Robottessa Cassy Referring Unavailable Mathews, Ranjith Maximus Primary Care Unavail able Crispin Subramanian Attending Unavailable Allegra Hylton Attending Unavailable Anuradha, Ranjith Maximus Primary Care Unavail able Mathews, Ranjith Maximus Primary Care Unavail able Isckarus, Mansour Attending Unavailable Ranjith Ling Referring Unavail able Allergies Allergy Classification Reported Allergen(s) Allergy Type Date of Onset Reaction(s) Facility (15 sources) moxifloxacin; Translations: [moxifloxacin] Drug Allergy 2 Hives [facility] (13 sources) terbinafine; Translations: [terbinafine] Drug Allergy 2 Hives, Fatigue (finding), Fever (finding), Eruption of skin (disorder) [facility] Work Phone: (1 source) moxifloxacin Drug Allergy 5 [facility] (1 source) terbinafine Drug Allergy 5 [facility] Medications Current Medications Medication Drug Class(es) Dates Sig (Normalized) Sig (Original) acetaminophen 325 mg / HYDROcodone bitartrate 5 mg oral tablet (2 sources) Opioid Agonist Start: 11-24-2024 End: 11-29-2024 take 1 tablet by mouth every six hours as needed for pain [place] 325- 5 mg oral tablet Dose = 1 tab(s), Oral, q6h, PRN for pain, Fill Date: 11/24/2024, X 5 day(s), # 20 tab(s), 0 Refill(s), Pharmacy: [facility], T-cell lymphoma, 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, cm, 11/24/24 12:54:00 EDT, Height, 47.4, kg, 11/24/24 12:54:00 EDT, Dosing Weight Start Date: 11/24/24 Stop Date: 11/29/24 Status: Ordered Medication Dispense Status: Completed Quantity: 20.0 Unit: tab(s) Total Allowed Fills: 1 Fills Dispensed: 0 Indications: Non-Hodgkin lymphoma, unspecified, unspecified site; [id number] 200 actuat albuterol 0.09 mg/actuat metered dose inhaler (6 sources) beta2-Adrenergic Agonist Start: 12-08-2021 albuterol HFA (PROVENTIL HFA, VENTOLIN HFA) 90 mcg/actuation inhaler 12/08/2021 Active Start: 03-28-2021 End: 06-26-2021 take 1 puff(s) by inhalation every four hours ProAir HFA MDI (90 mcg/inh) inhalation aerosol 1 puff(s), Inhalation, q4h, # 8 gram(s), 2 Refill(s), Pharmacy: [facility], Acute bronchitis, 169.5, cm, 03/28/21 [...] q6h, # 18 gram(s), 0 Refill(s), Pharmacy: [facility], Acute bronchitis, 169.5, cm, 07/04/21 [...] tab(s), 0 Refill(s), 06/25/21 9:54:00 EDT, Pharmacy: [facility], Acute URI, 169.5, cm, 06/20/21 [...] qmonth, # 4 cap(s), 1 Refill(s), Pharmacy: [facility], Vitamin D deficiency, 167, cm, 09/15/24 [...] qmonth, # 4 cap(s), 1 Refill(s), Pharmacy: [facility], Vitamin D deficiency, 166, cm, 04/23/23 13:15:00 EST, Height, kg, 04/23/23 13:15:00 EST, Dosing Weight Start Date: 10/24/23 Stop Date: 04/21/24 Status: Ordered Start: 04-23-2023 End: 10-20-2023 cholecalciferol 1250 mcg (50 ,000 intl units) oral capsule Dose : 50,000 International_Unit = 1 cap(s), Oral, qmonth, # 4 cap(s), 1 Refill(s), Pharmacy: [facility], Vitamin D deficiency, 166, cm, 04/23/23 13:15:00 EST, Height, kg, 04/23/23 13:15:00 EST, Dosing Weight Start Date: 04/23/23 Stop Date: 10/20/23 Status: Ordered dexamethasone 6 mg oral tablet (2 sources) Corticosteroid Start: 07-04-2021 End: 07-14-2021 dexamethasone 6 mg oral tablet Dose : 6 mg = 1 tab(s), Oral, qDay, X 10 day(s), # 10 tab(s), 0 Refill(s), 07/14/21 13:40:00 EDT, Pharmacy: [facility], Acute bronchitis, 169.5, cm, 07/04/21 13:17:00 EDT, Height Start Date: 07/04/21 Stop Date: 07/14/21 Status: Ordered Start: 06-20-2021 End: 06-30-2021 dexamethasone 6 mg oral tabl et Dose : 6 mg = 1 tab(s), Oral, qDay, X 10 day(s), # 10 tab(s), 0 Refill(s), 06/30/21 9:54:00 EDT, Pharmacy: [facility], Acute URI, 169.5, cm, 06/20/21 9:22:00 EDT, Height Start Date: 06/20/21 Stop Date: 06/30/21 Status: Ordered doxycycline monohydrate 100 mg oral capsule (1 source) Tetracycline-class Drug Start: 07-04-2021 End: 07-14-2021 doxycycline monohydrate 100 mg oral capsule Dose : 100 mg = 1 cap(s), Oral, BID, X 10 day(s), # 20 cap(s), 0 Refill(s), 07/14/21 13:40:00 EDT, Pharmacy: [facility], Acute bronchitis, 169.5, cm, 07/04/21 13:17:00 EDT, Height, 48.1 Start Date: 07/04/21 Stop Date: 07/14/21 Status: Ordered 12 hr guaiFENesin 600 mg extended release oral tablet (2 sources) Start: 07-04-2021 End: 07-14-2021 guaiFENesin 600 mg oral tablet, extended release Dose : 600 mg = 1 tab(s), Oral, q12h, X 10 day(s), # 20 tab(s), 0 Refill(s), 07/14/21 13:40:00 EDT, Pharmacy: [facility], Acute bronchitis, 169.5, cm, 07/04/21 13:17:00 EDT, Height Start Date: 07/04/21 Stop Date: 07/14/21 Status: Ordered Start: 06-20-2021 End: 06-30-2021 guaiFENesin 600 mg oral tabl et, extended release Dose : 600 mg = 1 tab(s), Oral, q12h, X 10 day(s), # 20 tab(s), 0 Refill(s), 06/30/21 9:54:00 EDT, Pharmacy: [facility], Acute URI, 169.5, cm, 06/20/21 [...] qDay, # 90 tab(s), 1 Refill(s), Pharmacy: [facility], 166, cm, 04/23/23 13:15:00 EST, Height, kg, 04/23/23 13:15:00 EST, Dosing Weight Start Date: 10/24/23 Status: Ordered Start: 04-23-2023 take 1 tablet by delfin th once daily hydrochlorothiazide-lisinopril 12.5 mg-1 0 mg oral tablet Dose = 1 tab(s), Oral, qDay, # 90 tab(s), 1 Refill(s), Pharmacy: [facility], 166, cm, 04/23/23 13:15:00 EST, Height, kg, 04/23/23 13:15:00 EST, Dosing Weight Start Date: 04/23/23 Status: Ordered Start: 01-05-2022 lisinopril-hyd roCHLOROthiazide (PRINZIDE,ZESTORETIC) 10-12.5 mg per tablet 01/05/2022 Active Start: 03-28-2021 End: 12-23-2021 take 1 tablet by mouth once daily hydrochlorothiazide-lisinopril 12.5 mg-1 0 mg oral tablet Dose = 1 tab(s), Oral, qDay, # 90 tab(s), 2 Refill(s), Pharmacy: [facility], 169.5, cm, 03/28/21 13:30:00 EST, [...] 600 mg ta blet 10/05/2021 08/22/[address] [facility] Medication (2 sources) Start: 12-09-2018 [facility] Medicatio n 1 tab, Daily, , 0 Refill(s) Start Date: 12/09/18 Status: Ordered mv-mn [id number]-dha-epa-fis h (2 sources) Start: 12-07-2024 Start: 12-07-2024 mv-mn 115-FA-o r9-tph-uyq-fish Active 1 {tbl} PO DAILY December 07, [...] qDay, # 90 tab(s), 1 Refill(s), Pharmacy: [facility], Celiac disease, 167, cm, 09/15/24 [...] nausea, # 30 tab(s), 0 Refill(s), Pharmacy: [facility], 169.5, cm, 06/20/21 9:22:00 EDT, [...] made to exam dated: 12/14/2011 mammogram - [facility]. The tissue of both breasts [...] made to exam dated: 12/14/2011 mammogram - [facility]. The tissue of both breasts [...] Automatedon 11-1 Anisocytosis Ql (Bld) 1+ Normal [facility] Comment on above: Performed By: #### L 300.3900, L300.4310, L101.9900, L3410.2400, L100.0500, L501.6710, L500.4050 #### [facility] [address] [place], [address] PLT EST MOD DEC Normal ADEQ [facility] Comment on above: Performed By: #### L 300.3900, L300.4310, L101.9900, L3410.2400, L100.0500, L501.6710, L500.4050 #### [facility] [address] [place], [address] Comprehensive Metabolic Prof ilon 01-11-2025 Albumin [Mass/Vol] 3.0 g/dL Low 3.4-4.8 [facility] Comment on above: Performed By: #### L 300.3900, L300.4310, L101.9900, L3410.2400, L100.0500, L501.6710, L500.4050 #### [facility] [address] [place], [address] Albumin/Globulin [Mass ratio] 1.2 {ratio} Normal 0.9-2.4 [facility] Comment on above: Performed By: #### L 300.3900, L300.4310, L101.9900, L3410.2400, L100.0500, L501.6710, L500.4050 #### [facility] [address] [place], [address] ALK PHOS 234 U/L High 35-104 [facility] Comment on above: Performed By: #### L 300.3900, L300.4310, L101.9900, L3410.2400, L100.0500, L501.6710, L500.4050 #### [facility] [address] [place], [address] ALT [Catalytic activity/Vol] 46 U/L High <=34 [facility] Comment on above: Performed By: #### L 300.3900, L300.4310, L101.9900, L3410.2400, L100.0500, L501.6710, L500.4050 #### [facility] [address] [place], [address] AST [Catalytic activity/Vol] 84 U/L High <=31 [facility] Comment on above: Performed By: #### L 300.3900, L300.4310, L101.9900, L3410.2400, L100.0500, L501.6710, L500.4050 #### [facility] [address] [place], [address] Bilirubin [Mass/Vol] 1.11 mg/dL Normal 0.00-1.30 [facility] Comment on above: Performed By: #### L 300.3900, L300.4310, L101.9900, L3410.2400, L100.0500, L501.6710, L500.4050 #### [facility] [address] [place], [address] BUN/CRE 23.2 RATIO High 10-20 [facility] Comment on above: Performed By: #### L 300.3900, L300.4310, L101.9900, L3410.2400, L100.0500, L501.6710, L500.4050 #### [facility] [address] [place], [address] Calcium [Mass/Vol] 10.6 mg/dL Normal 7.6-11.0 [facility] Comment on above: Performed By: #### L 300.3900, L300.4310, L101.9900, L3410.2400, L100.0500, L501.6710, L500.4050 #### [facility] [address] [place], [address] Chloride [Moles/Vol] 102 mmol/L Normal 98-108 [facility] Comment on above: Performed By: #### L 300.3900, L300.4310, L101.9900, L3410.2400, L100.0500, L501.6710, L500.4050 #### [facility] [address] [place], [address] CO2 [Moles/Vol] 24.3 mmol/L Normal 21.0-32.0 [facility] Comment on above: Performed By: #### L 300.3900, L300.4310, L101.9900, L3410.2400, L100.0500, L501.6710, L500.4050 #### [facility] [address] [place], [address] ( Creatinine [Mass/Vol] 1.39 mg/dL High 0.70-1.20 [facility] Comment on above: Performed By: #### L 300.3900, L300.4310, L101.9900, L3410.2400, L100.0500, L501.6710, L500.4050 #### [facility] [address] [place], [place], [phone] (493) ECRCL 31.07 ml/min Low 50-250 [facility] Comment on above: Performed By: #### L 300.3900, L300.4310, L101.9900, L3410.2400, L100.0500, L501.6710, L500.4050 #### [facility] [address] [place], [place], [phone] (282) GAP 16 High 5-15 [facility] Comment on above: Performed By: #### L 300.3900, L300.4310, L101.9900, L3410.2400, L100.0500, L501.6710, L500.4050 #### [facility] [address] [place], [place], [phone] (409) GFR/1.73 sq M.predicted among non-blacks MDRD (S/P/Bld) [Vol rate/Area] 41 mL/min/{1.73_m2} Low >60 [facility] Comment on above: Result Comment: mL/m in/1.73m2 CKD-EPI Creatinine Equation (2020) Performed By: #### L 300.3900, L300.4310, L101.9900, L3410.2400, L100.0500, L501.6710, L500.4050 #### [facility] [address] [place], [address] Globulin (S) [Mass/Vol] 2.5 g/dL Normal 2.2-4.2 [facility] Comment on above: Performed By: #### L 300.3900, L300.4310, L101.9900, L3410.2400, L100.0500, L501.6710, L500.4050 #### [facility] [address] [place], [address] Glucose [Mass/Vol] 84 mg/dL Normal 70-99 [facility] Comment on above: Performed By: #### L 300.3900, L300.4310, L101.9900, L3410.2400, L100.0500, L501.6710, L500.4050 #### [facility] [address] [place], [address] Potassium [Moles/Vol] 3.7 mmol/L Normal 3.3-5.1 [facility] Comment on above: Performed By: #### L 300.3900, L300.4310, L101.9900, L3410.2400, L100.0500, L501.6710, L500.4050 #### [facility] [address] [place], [address] Sodium [Moles/Vol] 142 mmol/L Normal 133-145 [facility] Comment on above: Performed By: #### L 300.3900, L300.4310, L101.9900, L3410.2400, L100.0500, L501.6710, L500.4050 #### [facility] [address] [place], [address] T PROT 5.5 g/dL Low 5.9-8.4 [facility] Comment on above: Performed By: #### L 300.3900, L300.4310, L101.9900, L3410.2400, L100.0500, L501.6710, L500.4050 #### [facility] [address] [place], [address] Urea nitrogen [Mass/Vol] 32 mg/dL High 4-19 [facility] Comment on above: Performed By: #### L 300.3900, L300.4310, L101.9900, L3410.2400, L100.0500, L501.6710, L500.4050 #### [facility] [address] [place], [address] Oncology Visit Reporton 01-02 Oncology Visit Report [facility] [address] [place], [place] [address] OFFICE VISIT Date of Service: 01/11/25 1459 MR#: [id number] Acct: [id number] Name: ESTELLA CHAO Rep #: [id number] : 1955 From: Ten Nogueira MD Age/Sex: 69/F Location: [facility] Status: Signed HPI Subjective Date of [...] with mantle cell lymphoma, p53 wild type. [facility] Medical History (Updated 01/11/25 @ 15:45 [...] 01/11/25 15:03 (more content not included)... Normal [facility] Chest WITH Contraston 2024 Chest WITH Contrast [facility] Imaging Services [address] [place] [id number] Chest WITH Contrast MR#: [id number] Acct: [id number] Name: ESTELLA CHAO Rep #: [id number] : 1955 F 69 From: Roby munguia MD PCP: Ranjith Ling, AUDIT INTERN-C Status: REG CLI Study: Chest WITH Contrast Date of Exam: 01/06/25 Exam# [id number] Ordering Dr: Ten Nogueira MD PROCEDURE: CHEST [...] at the left lung base. Reading Location: [id number] CC: AUDIT INTERNEstephania Ling; Dr. Ten Nogueira MD Director Regulatory Agency: Signed Normal [facility] Anion gap in Serum or Plasma Ordered By: Ten Nogueira on 12-29-2024 Anion gap [Moles/Vol] 15 mmol/L 07-16 [facility] BUN/creatinine ratioOrdered By: Ten Nogueira on 12-29-2024 Urea nitrogen/Creatinine [Mass ratio] 21.0 mg/mg High 12-21 [facility] Basic Metabolic Profile (BMP )on 12-29-2024 BUN/CRE 21.0 RATIO High 12-21 [facility] Comment on above: Performed By: #### L 300.3900, L300.4310, L101.9900, L3410.2400, L100.0500, L501.6710, L500.4050 #### [facility] [address] [place] [address] [address] [place], [place], [id number] Calcium [Mass/Vol] 10.4 mg/dL Normal 7.6-11.0 [facility] Comment on above: Performed By: #### L 300.3900, L300.4310, L101.9900, L3410.2400, L100.0500, L501.6710, L500.4050 #### [facility] [address] [place], [address] Chloride [Moles/Vol] 102 mmol/L Normal 98-108 [facility] Comment on above: Performed By: #### L 300.3900, L300.4310, L101.9900, L3410.2400, L100.0500, L501.6710, L500.4050 #### [facility] [address] [place], [address] CO2 [Moles/Vol] 27.1 mmol/L Normal 21.0-32.0 [facility] Comment on above: Performed By: #### L 300.3900, L300.4310, L101.9900, L3410.2400, L100.0500, L501.6710, L500.4050 #### [facility] [address] [place], [address] Creatinine [Mass/Vol] 1.03 mg/dL Normal 0.70-1.20 [facility] Comment on above: Performed By: #### L 300.3900, L300.4310, L101.9900, L3410.2400, L100.0500, L501.6710, L500.4050 #### [facility] [address] [place], [address] ECRCL 41.92 ml/min Low 50-250 [facility] Comment on above: Performed By: #### L 300.3900, L300.4310, L101.9900, L3410.2400, L100.0500, L501.6710, L500.4050 #### [facility] [address] [place], [address] GAP 15 Normal 5-15 [facility] Comment on above: Performed By: #### L 300.3900, L300.4310, L101.9900, L3410.2400, L100.0500, L501.6710, L500.4050 #### [facility] [address] [place], [address] GFR/1.73 sq M.predicted among non-blacks MDRD (S/P/Bld) [Vol rate/Area] 59 mL/min/{1.73_m2} Low >60 [facility] Comment on above: Result Comment: mL/m in/1.73m2 CKD-EPI Creatinine Equation (2020) Performed By: #### L 300.3900, L300.4310, L101.9900, L3410.2400, L100.0500, L501.6710, L500.4050 #### [facility] [address] [place], [address] Glucose [Mass/Vol] 91 mg/dL Normal 70-99 [facility] Comment on above: Performed By: #### L 300.3900, L300.4310, L101.9900, L3410.2400, L100.0500, L501.6710, L500.4050 #### [facility] [address] [place], [address] Potassium [Moles/Vol] 3.9 mmol/L Normal 3.3-5.1 [facility] Comment on above: Performed By: #### L 300.3900, L300.4310, L101.9900, L3410.2400, L100.0500, L501.6710, L500.4050 #### [facility] [address] [place], [address] Sodium [Moles/Vol] 144 mmol/L Normal 133-145 [facility] Comment on above: Performed By: #### L 300.3900, L300.4310, L101.9900, L3410.2400, L100.0500, L501.6710, L500.4050 #### [facility] [address] [place], [address] Urea nitrogen [Mass/Vol] 22 mg/dL High 4-19 [facility] Comment on above: Performed By: #### L 300.3900, L300.4310, L101.9900, L3410.2400, L100.0500, L501.6710, L500.4050 #### [facility] [address] [place], [place], [id number] Carbon dioxide, total [Moles /volume] in Central venous bloodOrdered By: Ten Nogueira on 12-29-2024 CO2 [Moles/Vol] 27.1 mmol/L 21.0-32.0 [facility] Chloride assayOrdered By: Felipe Nogueira on 12-29-2024 Chloride [Moles/Vol] 102 mmol/L 98-108 [facility] Glomerular filtration rate ( GFR) estimation/1.73 sq m using serum, plasma, or whole bOrdered By: Ten Nogueira on 12-29-2024 GFR/1.73 sq M.predicted among non-blacks MDRD (S/P/Bld) [Vol rate/Area] 59 mL/min/{1.73_m2} Low >60 [facility] Comment on above: mL/min/1.73m2 CKD-EP I Creatinine Equation (2020) L350.1820on 12-29-2024 Path. Sent [facility] SEE PATHOLOGY REPORT Normal [facility] Comment on above: Order Comment: RESUL TS FAXED TO DR ANDREA 01/11/25 Kimberlee59 Josh Webster. Result Comment: Spec imen sent to [facility] Pathology Department. Report available in EMR. Performed By: #### L 300.3900, L300.4310, L101.9900, L3410.2400, L100.0500, L501.6710, L500.4050 #### [facility] [address] [place], [address] L501.2276on 12-29-2024 Ionized Calcium 1.30 mmol/L Normal 1.09-1.30 [facility] Comment on above: Performed By: #### L 300.3900, L300.4310, L101.9900, L3410.2400, L100.0500, L501.6710, L500.4050 #### [facility] [address] [place], [address] Potassium measurement (mass/ volume)Ordered By: Ten Nogueira on 12-29-2024 Potassium (Unsp spec) [Mass/Vol] 3.9 mmol/L 3.3-5.1 [facility] Serum creatinine measurement (mass/volume)Ordered By: Ten Nogueira on 12-29-2024 Creatinine [Mass/Vol] 1.03 mg/dL 0.70-1.20 [facility] Serum glucose measurement (m ass/volume)Ordered By: Ten Nogueira on 12-29-2024 Glucose [Mass/Vol] 91 mg/dL 70-99 [facility] Serum or plasma calcium matt urement (mass/volume)Ordered By: Ten Nogueira on 12-29-2024 Calcium [Mass/Vol] 10.4 mg/dL 7.6-11.0 [facility] Comment on above: *Additional results available. Contact laboratory/see report* Serum or plasma urea nitroge n measurement (mass/volume)Ordered By: Ten Nogueira on 12-29-2024 Urea nitrogen [Mass/Vol] 22 mg/dL High 4-19 [facility] Sodium levelOrdered By: Aneta Nogueira on 12-29-2024 Sodium [Moles/Vol] 144 mmol/L 133-145 [facility] Surgery Visit Reporton 12-29 Surgery Visit Report [facility] [address] [place], [place] [address] OFFICE VISIT Date of Service: 12/29/24 MR#: [id number] Acct: [id number] Name: ESTELLA CHAO Rep #: [id number] : 1955 Provider: Dr. Cassy zarate MD Age/Sex: 69/F Location: [facility] Status: Signed Intake Vital Signs 12/22/24 [...] QDAY FOR ENERGY 11/26/24 12/29/24 History mv-mn [id number] sh 1 tab PO DAILY SUPPLEMENT 12/07/24 [...] and no acute distress Nutritional Appearance: cachectic HENNC Head: normocephalic and atraumatic Neck Neck: supple [...] Status: ment (more content not included)... Normal [facility] Folates, RBCon 12-24-2024 Fol.,Hemolysate > 620.0 Normal Not Estab. [facility] Comment on above: Performed By: #### L 300.3900, L300.4310, L101.9900, L3410.2400, L100.0500, L501.6710, L500.4050 #### [facility] Laboratory [address] [place], [place], [id number] Folate, RBC > 2074 Normal >498 [facility] Comment on above: Result Comment: Perf ormed at: [facility] [address] [id number] [employer]: Jeronimo Means PhD, Phone: [phone] Performed By: #### L 300.3900, L300.4310, L101.9900, L3410.2400, L100.0500, L501.6710, L500.4050 #### [facility] [address] [place], [place], [id number] Hematocrit (Bld) [Volume fraction] 29.9 % Low 34.0-46.6 [facility] Comment on above: Performed By: #### L 300.3900, L300.4310, L101.9900, L3410.2400, L100.0500, L501.6710, L500.4050 #### [facility] [address] [place], [address] L501.0895on 12-24-2024 Calcium [Mass/Vol] 11.8 mg/dL High 7.6-11.0 [facility] Comment on above: Performed By: #### L 300.3900, L300.4310, L101.9900, L3410.2400, L100.0500, L501.6710, L500.4050 #### [facility] [address] [place], [address] L501.2276on 12-24-2024 Ionized Calcium 1.46 mmol/L High 1.09-1.30 [facility] Comment on above: Performed By: #### L 300.3900, L300.4310, L101.9900, L3410.2400, L100.0500, L501.6710, L500.4050 #### [facility] [address] [place], [address] PTHINon 12-24-2024 PTH 7 pg/mL Low 11-61 [facility] Comment on above: Performed By: #### L 300.3900, L300.4310, L101.9900, L3410.2400, L100.0500, L501.6710, L500.4050 #### [facility] [address] [place], [address] Urine Cultureon 12-24-2024 [facility] Presumptive E. coli [place] Count >100,000 Presumptive E. coli: REACTION Ampicillin [...] TMP SMX Islt EDEN <=20 S Normal [facility] Comment on above: Performed By: #### L 300.3900, L300.4310, L101.9900, L3410.2400, L100.0500, L501.6710, L500.4050 #### [facility] [address] [place], [address] Absolute lymphocyte countOrd ered By: Anetamarissa Nogueira on 12-22-2024 Lymphocytes Auto (Unsp spec) [#/Vol] 1.08 10*3/uL 0.83-4.51 [facility] Absolute neutrophil countOrd ered By: [facility] on 12-22-2024 Neutrophils (Bld) [#/Vol] 3.0 10*3/uL 2.0-7.7 [facility] Amorphous sediment detection in urine sediment by light microscopyOrdered By: Ten Nogueira on 12-22-2024 Amorphous sediment LM Ql (Urine sed) 2+ [facility] Automated lymphocyte count a s percentage of total leukocytesOrdered By: Ten Nogueira on 12-22-2024 Lymphocytes/100 WBC Auto (Unsp spec) 20.8 % 19- [facility] Basophil percentageOrdered B y: Ten Nogueira on 12-22-2024 Basophils/100 WBC (Bld) 1.9 % High 0-1 [facility] Bilirubin Test strip Ql (U)O rdered By: Ten Nogueira on 12-22-2024 Bilirubin Ql (U) Negative Negative [facility] Bilirubin, totalOrdered By: [facility] on 12-22-2024 Bilirubin [Mass/Vol] 0.96 mg/dL 0.00-1.30 [facility] Blood manual differential co mment interpretation (narrative result)Ordered By: Ten Nogueira on 12-22-2024 Manual differential comment Johnathon (Bld) [Interp] SCANNED [facility] Blood polychromasia detectio n by light microscopyOrdered By: Ten Nogueira on 12-22-2024 Polychromasia LM Ql (Bld) 1+ [facility] CBC W/Diff, Automatedon 12-03 Anisocytosis Ql (Bld) 2+ Normal [facility] Comment on above: Performed By: #### L 300.3900, L300.4310, L101.9900, L3410.2400, L100.0500, L501.6710, L500.4050 #### [facility] [address] [place], [address] HYPOCHROMASIA 1+ Normal [facility] Comment on above: Performed By: #### L 300.3900, L300.4310, L101.9900, L3410.2400, L100.0500, L501.6710, L500.4050 #### [facility] [address] [place], [address] PLT EST MOD DEC Normal ADEQ [facility] Comment on above: Performed By: #### L 300.3900, L300.4310, L101.9900, L3410.2400, L100.0500, L501.6710, L500.4050 #### [facility] [address] [place], [address] POLYCHROMASIA 1+ Normal [facility] Comment on above: Performed By: #### L 300.3900, L300.4310, L101.9900, L3410.2400, L100.0500, L501.6710, L500.4050 #### [facility] [address] [place], [place], [id number] SMEAR COMMENT SCANNED Normal [facility] Comment on above: Performed By: #### L 300.3900, L300.4310, L101.9900, L3410.2400, L100.0500, L501.6710, L500.4050 #### [facility] [address] [place], [address] Comprehensive Metabolic Prof [facility] 12-22-2024 Albumin [Mass/Vol] 3.6 g/dL Normal 3.4-4.8 [facility] Comment on above: Performed By: #### L 300.3900, L300.4310, L101.9900, L3410.2400, L100.0500, L501.6710, L500.4050 #### [facility] [address] [place], [address] Albumin/Globulin [Mass ratio] 1.4 {ratio} Normal 0.9-2.4 [facility] Comment on above: Performed By: #### L 300.3900, L300.4310, L101.9900, L3410.2400, L100.0500, L501.6710, L500.4050 #### [facility] [address] [place], [address] ALK PHOS 290 U/L High 35-104 [facility] Comment on above: Performed By: #### L 300.3900, L300.4310, L101.9900, L3410.2400, L100.0500, L501.6710, L500.4050 #### [facility] [address] [place], [address] ALT [Catalytic activity/Vol] 138 U/L High <=34 [facility] Comment on above: Performed By: #### L 300.3900, L300.4310, L101.9900, L3410.2400, L100.0500, L501.6710, L500.4050 #### [facility] [address] [place], [address] AST [Catalytic activity/Vol] 197 U/L High <=31 [facility] Comment on above: Performed By: #### L 300.3900, L300.4310, L101.9900, L3410.2400, L100.0500, L501.6710, L500.4050 #### [facility] [address] [place], [address] Bilirubin [Mass/Vol] 0.96 mg/dL Normal 0.00-1.30 [facility] Comment on above: Performed By: #### L 300.3900, L300.4310, L101.9900, L3410.2400, L100.0500, L501.6710, L500.4050 #### [facility] [address] [place], [address] BUN/CRE 22.3 RATIO High 10-20 [facility] Comment on above: Performed By: #### L 300.3900, L300.4310, L101.9900, L3410.2400, L100.0500, L501.6710, L500.4050 #### [facility] [address] [place], [address] Calcium [Mass/Vol] 12.2 mg/dL High 7.6-11.0 [facility] Comment on above: Performed By: #### L 300.3900, L300.4310, L101.9900, L3410.2400, L100.0500, L501.6710, L500.4050 #### [facility] [address] [place], [address] Chloride [Moles/Vol] 99 mmol/L Normal 98-108 [facility] Comment on above: Performed By: #### L 300.3900, L300.4310, L101.9900, L3410.2400, L100.0500, L501.6710, L500.4050 #### [facility] [address] [place], [address] CO2 [Moles/Vol] 25.9 mmol/L Normal 21.0-32.0 [facility] Comment on above: Performed By: #### L 300.3900, L300.4310, L101.9900, L3410.2400, L100.0500, L501.6710, L500.4050 #### [facility] [address] [place], [address] Creatinine [Mass/Vol] 0.99 mg/dL Normal 0.70-1.20 [facility] Comment on above: Performed By: #### L 300.3900, L300.4310, L101.9900, L3410.2400, L100.0500, L501.6710, L500.4050 #### [facility] [address] [place], [address] GAP 18 High 5-15 [facility] Comment on above: Performed By: #### L 300.3900, L300.4310, L101.9900, L3410.2400, L100.0500, L501.6710, L500.4050 #### [facility] [address] [place], [address] GFR/1.73 sq M.predicted among non-blacks MDRD (S/P/Bld) [Vol rate/Area] 62 mL/min/{1.73_m2} Normal >60 [facility] Comment on above: Result Comment: mL/m in/1.73m2 CKD-EPI Creatinine Equation (2020) Performed By: #### L 300.3900, L300.4310, L101.9900, L3410.2400, L100.0500, L501.6710, L500.4050 #### [facility] [address] [place], [address] Globulin (S) [Mass/Vol] 2.6 g/dL Normal 2.2-4.2 [facility] Comment on above: Performed By: #### L 300.3900, L300.4310, L101.9900, L3410.2400, L100.0500, L501.6710, L500.4050 #### [facility] [address] [place], [address] Glucose [Mass/Vol] 83 mg/dL Normal 70-99 [facility] Comment on above: Performed By: #### L 300.3900, L300.4310, L101.9900, L3410.2400, L100.0500, L501.6710, L500.4050 #### [facility] [address] [place], [address] Potassium [Moles/Vol] 3.9 mmol/L Normal 3.3-5.1 [facility] Comment on above: Performed By: #### L 300.3900, L300.4310, L101.9900, L3410.2400, L100.0500, L501.6710, L500.4050 #### [facility] [address] [place], [address] Sodium [Moles/Vol] 143 mmol/L Normal 133-145 [facility] Comment on above: Performed By: #### L 300.3900, L300.4310, L101.9900, L3410.2400, L100.0500, L501.6710, L500.4050 #### [facility] [address] [place], [address] T PROT 6.2 g/dL Normal 5.9-8.4 [facility] Comment on above: Performed By: #### L 300.3900, L300.4310, L101.9900, L3410.2400, L100.0500, L501.6710, L500.4050 #### [facility] [address] [place], [address] Urea nitrogen [Mass/Vol] 22 mg/dL High 4-19 [facility] Comment on above: Performed By: #### L 300.3900, L300.4310, L101.9900, L3410.2400, L100.0500, L501.6710, L500.4050 #### [facility] [address] [place], [address] Eosinophil percentageOrdered By: Ten Nogueira on 12-22-2024 Eosinophils/100 WBC (Bld) 0.8 % 0-5 [facility] Erythrocyte distribution wid th ratioOrdered By: Ten Nogueira on 12-22-2024 Erythrocyte distribution width (RBC) [Ratio] 18.1 % High 11.6-14.6 [facility] Erythrocyte distribution wid th standard deviationOrdered By: Ten Nogueira on 12-22-2024 Erythrocyte distribution width (RBC) [Ratio] 65.2 fl High 35.1-43.9 [facility] Erythrocyte folate measureme nt with hematocritOrdered By: Ten Nogueira on 12-22-2024 Hematocrit (Bld) [Volume fraction] 29.9 % Low 34.0-46.6 [facility] Ferritinon 12-22-2024 Ferritin [Mass/Vol] 630 ng/mL High 22-378 [facility] Comment on above: Performed By: #### L 300.3900, L300.4310, L101.9900, L3410.2400, L100.0500, L501.6710, L500.4050 #### [facility] [address] [place], [address] HIVon 12-22-2024 HIV Non-Reactive Normal Nonreactive [facility] Comment on above: Result Comment: Non- Reactive Reactive Repeatedly reactive samples must be confirmed according to CDC recommended confirmatory algorithms. The subresults for either HIVAG or AHIV can be used as an aid in the selection of the confirmation algorithm for reactive samples. Send out specimens with Reactive results to [facility] for confirmation. Order the HIV antibody detection and differentiation: #[id number] Performed By: #### L 300.3900, L300.4310, L101.9900, L3410.2400, L100.0500, L501.6710, L500.4050 #### [facility] [address] [place], [address] Hematocrit Auto (Bld) [Volum e fraction]Ordered By: Ten Nogueira on 12-22-2024 Hematocrit (Bld) [Volume fraction] 31.6 % Low 37-47 [facility] Hemoglobin measurementOrdere d By: Ten Nogueira on 12-22-2024 Hemoglobin (Bld) [Mass/Vol] 9.7 g/dL Low 12.0-15.0 [facility] Hypochromatic red blood cell detectionOrdered By: Ten Nogueira on 12-22-2024 Hypochromia Ql (Bld) 1+ [facility] Immature granulocytes/100 WB C Auto (Bld)Ordered By: Ten Nogueira on 12-22-2024 Immature granulocytes/100 WBC (Bld) 2.300 % High 0.0-0.9 [facility] Comment on above: IG% - Immature Granu locytes (promyelocytes, myelocytes and metamyelocytes) > 1% indicates that a LEFT SHIFT is Present. Immature platelet percentage Ordered By: Ten Nogueira on 12-22-2024 Platelets reticulated/100 platelets Auto (Bld) 3.2 % 1.0-7.9 [facility] Comment on above: Low PLT + Low [...] (Unsp spec) [Mass/Mass] 49 ug/dL Low 50-170 [facility] Iron+Iron Binding Capacityon 12-22-2024 Iron [Mass/Vol] 49 ug/dL Low 50-170 [facility] Comment on above: Performed By: #### L 300.3900, L300.4310, L101.9900, L3410.2400, L100.0500, L501.6710, L500.4050 #### [facility] [address] [place], [place], [id number] ([address] IRON SATURATION 19.7 Normal 13-59 [facility] Comment on above: Performed By: #### L 300.3900, L300.4310, L101.9900, L3410.2400, L100.0500, L501.6710, L500.4050 #### [facility] [address] [place], [address] TIBC 249 ug/dL Low 250-450 [facility] Comment on above: Performed By: #### L 300.3900, L300.4310, L101.9900, L3410.2400, L100.0500, L501.6710, L500.4050 #### [facility] [address] [place], [address] UIBC 200 ug/dL Low 228-428 [facility] Comment on above: Performed By: #### L 300.3900, L300.4310, L101.9900, L3410.2400, L100.0500, L501.6710, L500.4050 #### [facility] [address] [place], [address] Ketones Test strip Ql (U)Ord ered By: Ten Nogueira on 12-22-2024 Ketones Ql (U) Negative Negative [facility] LDHon 12-22-2024 LDH 446 U/L High 84-246 [facility] Comment on above: Order Comment: 1 Performed By: #### L 300.3900, L300.4310, L101.9900, L3410.2400, L100.0500, L501.6710, L500.4050 #### [facility] [address] [place], [address] Laboratory - Chemistry and C hemistry - challengeOrdered By: Ten Nogueira on 12-22-2024 AST [Catalytic activity/Vol] 197 U/L High <32 [facility] Laboratory - Hematology and Cell countsOrdered By: Ten Nogueira on 12-22-2024 Anisocytosis Ql (Bld) 2+ [facility] Lactate dehydrogenase (LDH) measurementOrdered By: Ten Nogueira on 12-22-2024 LDH [Catalytic activity/Vol] 446 U/L High 84-246 [facility] MCV (mean corpuscular volume ) determinationOrdered By: Ten Nogueira on 12-22-2024 MCV (RBC) [Entitic vol] 99.4 fL High 81-99 [facility] Magnesiumon 12-22-2024 Magnesium [Mass/Vol] 1.8 mg/dL Normal 1.5-2.2 [facility] Comment on above: Performed By: #### L 300.3900, L300.4310, L101.9900, L3410.2400, L100.0500, L501.6710, L500.4050 #### [facility] [address] [place], [place], [id number] Magnesium measurement (mass/ volume)Ordered By: Ten Nogueira on 12-22-2024 Magnesium (Unsp spec) [Mass/Vol] 1.8 mg/dL 1.5-2.2 [facility] Mean corpuscular hemoglobin (MCH) determinationOrdered By: Ten Nogueira on 12-22-2024 MCH (RBC) [Entitic mass] 30.5 pg 27.0-32.0 [facility] Mean corpuscular hemoglobin concentration (MCHC) determinationOrdered By: Ten Nogueira on 12-22-2024 MCHC (RBC) [Mass/Vol] 30.7 g/dL Low 32-36 [facility] Mean platelet volume determi nationOrdered By: Ten Nogueira on 12-22-2024 Platelet mean volume (Bld) [Entitic vol] 10.9 fL 6.2-12.0 [facility] Microscopic analysis of urin e for red blood cells (RBC)Ordered By: Ten Nogueira on 12-22-2024 Microscopic analysis of urine for red blood cells (RBC) 0-5 SEEN /hpf 0-5 [facility] Monocyte percentageOrdered B y: Ten Nogueira on 12-22-2024 Monocytes/100 WBC (Bld) 16.0 % High 0-10 [facility] Mucus LM Ql (Urine sed)Order ed By: Ten Nogueira on 12-22-2024 Mucus Ql (Urine sed) 0 SEEN /hpf [facility] Neutrophil percentageOrdered By: Ten Nogueira on 12-22-2024 Neutrophils/100 WBC (Bld) 58.2 % 47-70 [facility] Nitrite Test strip Ql (U)Ord ered By: Ten Nogueira on 12-22-2024 Nitrite Ql (U) Positive High Negative [facility] No Panel InformationOrdered By: Ten Nogueira on 12-22-2024 HIV (1&2) Antibody Non-Reactive Nonreactive [facility] Comment on above: Non-ReactiveReactive Repeatedly reactive samples must be confirmed according to CDC recommended confirmatory algorithms. The subresults for either HIVAG or AHIV can be used as an aid in the selection of the confirmation algorithm for reactive samples.Send out specimens with Reactive results to [facility] for confirmation.Order the HIV antibody detection and differentiation: #[id number] Unsaturated Iron Binding Capacity 200 ug/dL Low 228-428 [facility] Nucleated red blood cell per centageOrdered By: Ten Nogueira on 12-22-2024 Nucleated RBC/100 WBC (Bld) [Ratio] 0.4 % 0-5 [facility] Oncology Visit Reporton 12-03 Oncology Visit Report [facility] [address] [place], [place] [address] [address] OFFICE VISIT Date of Service: 12/22/24 1424 MR#: [id number] Acct: [id number] Name: ESTELLA CHAO Rep #: [id number] : 1955 From: Ten Nogueira MD Age/Sex: 69/F Location: [facility] Status: Signed HPI Subjective Date of [...] estimated to be 2.6 cm in axis. [facility] Medical History (Updated 12/22/24 @ 15:04 [...] Temperature Source (more content not included)... Normal [facility] Phosphoruson 12-22-2024 Phosphate [Mass/Vol] 2.8 mg/dL Normal 2.7-4.5 [facility] Comment on above: Performed By: #### L 300.3900, L300.4310, L101.9900, L3410.2400, L100.0500, L501.6710, L500.4050 #### [facility] [address] [place], [address] Platelet countOrdered By: Felipe Nogueira on 12-22-2024 Platelets (Bld) [#/Vol] 85 10*3/uL Low 150-450 [facility] Platelet estimateOrdered By: Ten Nogueira on 12-22-2024 Platelets LM Ql (Bld) MOD DEC ADEQ [facility] Protein Test strip Ql (U)Ord ered By: Ten Nogueira on 12-22-2024 Protein Ql (U) 30 mg/dl High Negative [facility] RBC Auto (Bld) [#/Vol]Ordere d By: Ten Nogueira on 12-22-2024 RBC (Bld) [#/Vol] 3.18 10*6/uL Low 4.2-5.4 [facility] Retic Panelon 12-22-2024 IM RET FRACTION 30.40 High 3.00-15.90 [facility] Comment on above: Performed By: #### L 300.3900, L300.4310, L101.9900, L3410.2400, L100.0500, L501.6710, L500.4050 #### [facility] [address] [place], [address] IPF 3.2 Normal 1.0-7.9 [facility] Comment on above: Result Comment: Low PLT [...] L300.4310, L101.9900, L3410.2400, L100.0500, L501.6710, L500.4050 #### [facility] [address] [place], [address] RET-HE 34.4 pg Normal 30-35 [facility] Comment on above: Performed By: #### L 300.3900, L300.4310, L101.9900, L3410.2400, L100.0500, L501.6710, L500.4050 #### [facility] [address] [place], [address] Retic Count 3.74 High 0.5-1.5 [facility] Comment on above: Performed By: #### L 300.3900, L300.4310, L101.9900, L3410.2400, L100.0500, L501.6710, L500.4050 #### [facility] [place], [address] Reticulocyte hemoglobin equi valent (RET-He) measurementOrdered By: Ten Nogueira on 12-22-2024 Hemoglobin (Reticulocytes) [Entitic mass] 34.4 pg 30-35 [facility] Reticulocytes Auto (Bld) [#/ Vol]Ordered By: Ten Nogueira on 12-22-2024 Reticulocytes/100 RBC (Bld) 3.74 % High 0.5-1.5 [facility] Serum globulin measurementOr dered By: Ten Nogueira on 12-22-2024 Globulin (S) [Mass/Vol] 2.6 g/dL 2.2-4.2 [facility] Serum or plasma alanine baker otransferase (ALT) measurementOrdered By: Ten Nogueira on 12-22-2024 ALT [Catalytic activity/Vol] 138 U/L High <35 [facility] Serum or plasma albumin matt urement (mass/volume)Ordered By: Ten Nogueira on 12-22-2024 Albumin [Mass/Vol] 3.6 g/dL 3.4-4.8 [facility] Serum or plasma albumin/glob ulin mass ratioOrdered By: Ten Nogueira on 12-22-2024 Albumin/Globulin [Mass ratio] 1.4 {ratio} 0.9-2.4 [facility] Serum or plasma alkaline adama sphatase measurementOrdered By: Ten Nogueira on 12-22-2024 ALP [Catalytic activity/Vol] 290 U/L High 35-104 [facility] Serum or plasma ferritin claudia surement (mass/volume)Ordered By: Ten Nogueira on 12-22-2024 Ferritin [Mass/Vol] 630 ng/mL High 22-378 [facility] Serum or plasma iron saturat ion measurement (mass fraction)Ordered By: Ten Nogueira on 12-22-2024 Iron saturation [Mass fraction] 19.7 % 13-59 [facility] Squamous epithelial cells de tection in urine sediment by light microscopyOrdered By: Ten Nogueira on 12-22-2024 Epithelial cells.squamous LM Ql (Urine sed) 0-5 SEEN /hpf 5-10 [facility] Total proteinOrdered By: Ellis Nogueira on 12-22-2024 Protein [Mass/Vol] 6.2 g/dL 5.9-8.4 [facility] Urinalysis, Completeon 12-22 AMORPHOUS 2+ Normal [facility] Comment on above: Order Comment: MAGDIEL CTOR TO SPECIFY Performed By: #### L 300.3900, L300.4310, L101.9900, L3410.2400, L100.0500, L501.6710, L500.4050 #### [facility] [address] [place], [address] EPI,SQUAMOUS 0-5 SEEN Normal 07-11 [facility] Comment on above: Order Comment: MAGDIEL CTOR TO SPECIFY Performed By: #### L 300.3900, L300.4310, L101.9900, L3410.2400, L100.0500, L501.6710, L500.4050 #### [facility] [address] [place], [address] BACTERIA 2+ /hpf Normal None Seen [facility] Comment on above: Order Comment: MAGDIEL CTOR TO SPECIFY Performed By: #### L 300.3900, L300.4310, L101.9900, L3410.2400, L100.0500, L501.6710, L500.4050 #### [facility] [address] [place], [address] RBC 0-5 SEEN Normal 0-5 [facility] Comment on above: Order Comment: MAGDIEL CTOR TO SPECIFY Performed By: #### L 300.3900, L300.4310, L101.9900, L3410.2400, L100.0500, L501.6710, L500.4050 #### [facility] [address] [place], [address] WBC 10-25 SEEN Normal 0-5 [facility] Comment on above: Order Comment: MAGDIEL CTOR TO SPECIFY Performed By: #### L 300.3900, L300.4310, L101.9900, L3410.2400, L100.0500, L501.6710, L500.4050 #### [facility] [address] [place], [address] Mucus Ql (Urine sed) 0 SEEN Normal [facility] Comment on above: Order Comment: MAGDIEL CTOR TO SPECIFY Performed By: #### L 300.3900, L300.4310, L101.9900, L3410.2400, L100.0500, L501.6710, L500.4050 #### [facility] [address] [place], [place], [id number] Urine clarityOrdered By: Ellis Nogueira on 12-22-2024 Clarity (U) Cloudy Clear [facility] Urine color determinationOrd ered By: Ten Nogueira on 12-22-2024 Color (U) Yellow Yellow [facility] Urine cultureOrdered By: Ellis Nogueira on 12-22-2024 Bacteria identified Cx Nom (U) Presumptive E. coli Abnormal [facility] Urine glucose detectionOrder ed By: Ten Nogueira on 12-22-2024 Glucose Ql (U) Normal mg/dl Normal [facility] Urine leukocyte esterase det ection by dipstickOrdered By: Ten Nogueira on 12-22-2024 Leukocyte esterase Test strip Ql (U) 25 /ul High Negative [facility] Urine pHOrdered By: Ten Nogueira on 12-22-2024 pH (U) 6.0 [pH] 5.0 - 8.0 [facility] Urine sediment bacteria coun t by microscopy (number/high power field)Ordered By: Ten Nogueira on 12-22-2024 Bacteria LM.HPF (Urine sed) [#/Area] 2 /[HPF] None Seen [facility] Urine specific gravity measu rementOrdered By: Ten Nogueira on 12-22-2024 Specific gravity (U) [Rel density] 1.020 1.002-1.030 [facility] Urine urobilinogen measureme ntOrdered By: Ten Nogueira on 12-22-2024 Urobilinogen Ql (U) Normal mg/dl Normal [facility] Vitamin B12on 12-22-2024 Cobalamin (Vitamin B12) [Mass/Vol] 896 pg/mL Normal 180-914 [facility] Comment on above: Performed By: #### L 300.3900, L300.4310, L101.9900, L3410.2400, L100.0500, L501.6710, L500.4050 #### [facility] [address] [place], [address] Vitamin B12 ser/plasOrdered By: Ten Nogueira on 12-22-2024 Cobalamin (Vitamin B12) [Mass/Vol] 896 pg/mL 180-914 [facility] White blood cell (WBC) count Ordered By: Ten Nogueira on 12-22-2024 WBC (Bld) [#/Vol] 5.2 10*3/uL 4.4-11.0 [facility] White blood cell countOrdere d By: Ten Nogueira on 12-22-2024 White blood cell count 10-25 SEEN /hpf 0-5 [facility] MRI LIVERon 12-18-2024 MRI LIVER ORIGINAL EXAMINATION: [...] 9:28:43 AM Ordering Provider: RANJITH LING Normal [facility] Absolute lymphocyte countOrd ered By: Crispin Subramanian on 12-07-2024 Lymphocytes Auto (Unsp spec) [#/Vol] 0.81 10*3/uL Low 0.83-4.51 [facility] Absolute neutrophil countOrd ered By: Crispinnakita Subramanian on 12-07-2024 Neutrophils (Bld) [#/Vol] 2.9 10*3/uL 2.0-7.7 [facility] Anion gap in Serum or Plasma Ordered By: Crispinnakita Subramanian on 12-07-2024 Anion gap [Moles/Vol] 15 mmol/L 5-15 [facility] Automated lymphocyte count a s percentage of total leukocytesOrdered By: Crispinnakita Subramanian on 12-07-2024 Lymphocytes/100 WBC Auto (Unsp spec) 17.7 % Low 19-41 [facility] BUN/creatinine ratioOrdered By: Crispinnakita Subramanian on 12-07-2024 Urea nitrogen/Creatinine [Mass ratio] 22.6 mg/mg High 10-20 [facility] Basophil percentageOrdered B y: Crispinnakita Subramanian on 12-07-2024 Basophils/100 WBC (Bld) 1.5 % High 0-1 [facility] Bilirubin, totalOrdered By: Crispinnakita Subramanian on 12-07-2024 Bilirubin [Mass/Vol] 0.73 mg/dL 0.00-1.30 [facility] CBC W/Diff, Automatedon 10-0 PLT EST MOD DEC Normal ADEQ [facility] Comment on above: Performed By: #### L 300.3900, L300.4310, L101.9900, L3410.2400, L100.0500, L501.6710, L500.4050 #### [facility] [address] [place], [address] CRPon 12-07-2024 C-REACTIVE PROT 56.00 mg/L High 0.0-3.0 [facility] Comment on above: Performed By: #### L 300.3900, L300.4310, L101.9900, L3410.2400, L100.0500, L501.6710, L500.4050 #### [facility] [address] [place], [address] Carbon dioxide, total [Moles /volume] in Central venous bloodOrdered By: Crispinnakita Subramanian on 12-07-2024 CO2 [Moles/Vol] 25.6 mmol/L 21.0-32.0 [facility] Chloride assayOrdered By: Ug o Subramanian on 12-07-2024 Chloride [Moles/Vol] 101 mmol/L 98-108 [facility] Comprehensive Metabolic Prof ilon 12-07-2024 Albumin [Mass/Vol] 3.4 g/dL Normal 3.4-4.8 [facility] Comment on above: Performed By: #### L 300.3900, L300.4310, L101.9900, L3410.2400, L100.0500, L501.6710, L500.4050 #### [facility] [address] [place], [address] Albumin/Globulin [Mass ratio] 1.2 {ratio} Normal 0.9-2.4 [facility] Comment on above: Performed By: #### L 300.3900, L300.4310, L101.9900, L3410.2400, L100.0500, L501.6710, L500.4050 #### [facility] [address] [place], [address] ALK PHOS 189 U/L High 35-104 [facility] Comment on above: Performed By: #### L 300.3900, L300.4310, L101.9900, L3410.2400, L100.0500, L501.6710, L500.4050 #### [facility] [address] [place], [address] ALT [Catalytic activity/Vol] 99 U/L High <=34 [facility] Comment on above: Performed By: #### L 300.3900, L300.4310, L101.9900, L3410.2400, L100.0500, L501.6710, L500.4050 #### [facility] [address] [place], [address] AST [Catalytic activity/Vol] 121 U/L High <=31 [facility] Comment on above: Performed By: #### L 300.3900, L300.4310, L101.9900, L3410.2400, L100.0500, L501.6710, L500.4050 #### [facility] [address] [place], [address] Bilirubin [Mass/Vol] 0.73 mg/dL Normal 0.00-1.30 [facility] Comment on above: Performed By: #### L 300.3900, L300.4310, L101.9900, L3410.2400, L100.0500, L501.6710, L500.4050 #### [facility] [address] [place], [address] BUN/CRE 22.6 RATIO High 10-20 [facility] Comment on above: Performed By: #### L 300.3900, L300.4310, L101.9900, L3410.2400, L100.0500, L501.6710, L500.4050 #### [facility] [address] [place], [address] Calcium [Mass/Vol] 10.6 mg/dL Normal 7.6-11.0 [facility] Comment on above: Performed By: #### L 300.3900, L300.4310, L101.9900, L3410.2400, L100.0500, L501.6710, L500.4050 #### [facility] [address] [place], [address] Chloride [Moles/Vol] 101 mmol/L Normal 98-108 [facility] Comment on above: Performed By: #### L 300.3900, L300.4310, L101.9900, L3410.2400, L100.0500, L501.6710, L500.4050 #### [facility] [address] [place], [address] CO2 [Moles/Vol] 25.6 mmol/L Normal 21.0-32.0 [facility] Comment on above: Performed By: #### L 300.3900, L300.4310, L101.9900, L3410.2400, L100.0500, L501.6710, L500.4050 #### [facility] [address] [place], [address] Creatinine [Mass/Vol] 1.25 mg/dL High 0.70-1.20 [facility] Comment on above: Performed By: #### L 300.3900, L300.4310, L101.9900, L3410.2400, L100.0500, L501.6710, L500.4050 #### [facility] [address] [place], [address] ECRCL 1.68 ml/min Invalid Interpretation Code 50-250 [facility] Comment on above: Performed By: #### L 300.3900, L300.4310, L101.9900, L3410.2400, L100.0500, L501.6710, L500.4050 #### [facility] [address] [place], [address] GAP 15 Normal 5-15 [facility] Comment on above: Performed By: #### L 300.3900, L300.4310, L101.9900, L3410.2400, L100.0500, L501.6710, L500.4050 #### [facility] [address] [place], [address] GFR/1.73 sq M.predicted among non-blacks MDRD (S/P/Bld) [Vol rate/Area] 47 mL/min/{1.73_m2} Low >60 [facility] Comment on above: Result Comment: mL/m in/1.73m2 CKD-EPI Creatinine Equation (2020) Performed By: #### L 300.3900, L300.4310, L101.9900, L3410.2400, L100.0500, L501.6710, L500.4050 #### [facility] [address] [place], [address] Globulin (S) [Mass/Vol] 2.9 g/dL Normal 2.2-4.2 [facility] Comment on above: Performed By: #### L 300.3900, L300.4310, L101.9900, L3410.2400, L100.0500, L501.6710, L500.4050 #### [facility] [address] [place], [address] Glucose [Mass/Vol] 90 mg/dL Normal 70-99 [facility] Comment on above: Performed By: #### L 300.3900, L300.4310, L101.9900, L3410.2400, L100.0500, L501.6710, L500.4050 #### [facility] [address] [place], [address] Potassium [Moles/Vol] 3.9 mmol/L Normal 3.3-5.1 [facility] Comment on above: Performed By: #### L 300.3900, L300.4310, L101.9900, L3410.2400, L100.0500, L501.6710, L500.4050 #### [facility] [address] [place], [address] Sodium [Moles/Vol] 142 mmol/L Normal 133-145 [facility] Comment on above: Performed By: #### L 300.3900, L300.4310, L101.9900, L3410.2400, L100.0500, L501.6710, L500.4050 #### [facility] [address] [place], [address] T PROT 6.3 g/dL Normal 5.9-8.4 [facility] Comment on above: Performed By: #### L 300.3900, L300.4310, L101.9900, L3410.2400, L100.0500, L501.6710, L500.4050 #### [facility] [address] [place], [address] Urea nitrogen [Mass/Vol] 28 mg/dL High 4-19 [facility] Comment on above: Performed By: #### L 300.3900, L300.4310, L101.9900, L3410.2400, L100.0500, L501.6710, L500.4050 #### [facility] [address] [place], [address] Emergency Department Summary on 12-07-2024 Emergency Department Summary [facility] Medical Records Department [address] [place] [address] Emergency Department Summary 12/07/24 MR#: [id number] Acct: [id number] Name: ESTELLA CHAO Rep #: [id number] : [id number] 68 From: Crispin Subramanian MD PCP: Ranjith Ling, AUDIT INTERN-C Status:DEP ER Location: ED HPI History of [...] for her pain. She was seen at [facility]. Patient is scheduled for an MRI [...] tightness or heaviness. She denies dyspnea or [place] exertion. Denies orthopnea or PND. She does report swelling of her ankles recently. Patient has no history of alcohol use or cirrhosis. Prior similar symptoms: Yes Recent Illness/Hospitalizati on: Yes (Seen by PCP approximately 2 weeks ago. Her creatinine at that time was ely) [facility] Medical History Depression Emphysema lung COPD (chronic [...] QDAY FOR ENERGY 11/26/24 12/06/24 History mv-mn [id number] 1 tab PO DAILY SUPPLEMENT 12/07/24 [...] documented EXAM (more content not included)... Normal [facility] Eosinophil percentageOrdered By: Crispin Subramanian on 12-07-2024 Eosinophils/100 WBC (Bld) 1.1 % 0-5 [facility] Erythrocyte Sed Rateon 12-07 SED RATE 8 mm/hr Normal 0-30 [facility] Comment on above: Performed By: #### L 300.3900, L501.6710, L101.9900, L500.4050, L100.0100 #### [facility] [address] [place], [place], [id number] Erythrocyte distribution wid th ratioOrdered By: Crispin Subramanian on 12-07-2024 Erythrocyte distribution width (RBC) [Ratio] 17.1 % High 11.6-14.6 [facility] Erythrocyte distribution wid th standard deviationOrdered By: Crispin Subramanian on 12-07-2024 Erythrocyte distribution width (RBC) [Ratio] 59.6 fl High 35.1-43.9 [facility] Erythrocyte sedimentation ra teOrdered By: Crispin Subramanian on 12-07-2024 ESR (Bld) [Velocity] 8 mm/h 0-30 [facility] Glomerular filtration rate ( GFR) estimation/1.73 sq m using serum, plasma, or whole bOrdered By: Crispin Subramanian on 12-07-2024 GFR/1.73 sq M.predicted among non-blacks MDRD (S/P/Bld) [Vol rate/Area] 47 mL/min/{1.73_m2} Low >60 [facility] Comment on above: mL/min/1.73m2 CKD-EP I Creatinine Equation (2020) Hematocrit Auto (Bld) [Volum e fraction]Ordered By: Crispin Subramanian on 12-07-2024 Hematocrit (Bld) [Volume fraction] 30.5 % Low 37-47 [facility] Hemoglobin measurementOrdere d By: Crispin Subramanian on 12-07-2024 Hemoglobin (Bld) [Mass/Vol] 9.4 g/dL Low 12.0-15.0 [facility] Immature granulocytes/100 WB C Auto (Bld)Ordered By: Crispin Subramanian on 12-07-2024 Immature granulocytes/100 WBC (Bld) 0.700 % 0.0-0.9 [facility] Comment on above: IG% - Immature Granu locytes (promyelocytes, myelocytes and metamyelocytes) > 1% indicates that a LEFT SHIFT is Present. International normalized rat io (INR) calculationOrdered By: Crispin Subramanian on 12-07-2024 INR Coag (Bld) [Relative time] 1.0 {INR} [facility] Laboratory - Chemistry and C hemistry - challengeOrdered By: Crispin Subramanian on 12-07-2024 AST [Catalytic activity/Vol] 121 U/L High <32 [facility] MCV (mean corpuscular volume ) determinationOrdered By: Crispin Subramanian on 12-07-2024 MCV (RBC) [Entitic vol] 97.1 fL 81-99 [facility] Mean corpuscular hemoglobin (MCH) determinationOrdered By: Crispin Subramanian on 12-07-2024 MCH (RBC) [Entitic mass] 29.9 pg 27.0-32.0 [facility] Mean corpuscular hemoglobin concentration (MCHC) determinationOrdered By: Crispin Subramanian on 12-07-2024 MCHC (RBC) [Mass/Vol] 30.8 g/dL Low 32-36 [facility] Mean platelet volume determi nationOrdered By: Crispin Subramanian on 12-07-2024 Platelet mean volume (Bld) [Entitic vol] 10.7 fL 6.2-12.0 [facility] Monocyte percentageOrdered B y: Crispin Subramanian on 12-07-2024 Monocytes/100 WBC (Bld) 15.3 % High 0-10 [facility] Neutrophil percentageOrdered By: Crispin Subramanian on 12-07-2024 Neutrophils/100 WBC (Bld) 63.7 % 47-70 [facility] Nucleated red blood cell per centageOrdered By: Crispin Subramanian on 12-07-2024 Nucleated RBC/100 WBC (Bld) [Ratio] 0 % 0-5 [facility] Platelet countOrdered By: Rex Subramanian on 12-07-2024 Platelets (Bld) [#/Vol] 88 10*3/uL Low 150-450 [facility] Platelet estimateOrdered By: Crispin Subramanian on 12-07-2024 Platelets LM Ql (Bld) MOD DEC ADEQ [facility] Potassium measurement (mass/ volume)Ordered By: Crispin Subramanian on 12-07-2024 Potassium (Unsp spec) [Mass/Vol] 3.9 mmol/L 3.3-5.1 [facility] Prothrombin Time w/INRon INR Coag (PPP) [Relative time] 1.0 {INR} Normal [facility] Comment on above: Performed By: #### L 300.3900, L501.6710, L101.9900, L500.4050, L100.0100 #### [facility] [address] [place], [address] PT Coag (PPP) [Time] 13.5 s Normal 11.7-14.9 [facility] Comment on above: Performed By: #### L 300.3900, L501.6710, L101.9900, L500.4050, L100.0100 #### [facility] [address] [place], [address] Prothrombin timeOrdered By: Crispin Subramanian on 12-07-2024 PT Coag (PPP) [Time] 13.5 s 11.7-14.9 [facility] RBC Auto (Bld) [#/Vol]Ordere d By: Crispin Subramanian on 12-07-2024 RBC (Bld) [#/Vol] 3.14 10*6/uL Low 4.2-5.4 [facility] Serum creatinine measurement (mass/volume)Ordered By: Crispin Subramanian on 12-07-2024 Creatinine [Mass/Vol] 1.25 mg/dL High 0.70-1.20 [facility] Serum globulin measurementOr dered By: Crispin Subramanian on 12-07-2024 Globulin (S) [Mass/Vol] 2.9 g/dL 2.2-4.2 [facility] Serum glucose measurement (m ass/volume)Ordered By: Crispin Subramanian on 12-07-2024 Glucose [Mass/Vol] 90 mg/dL 70-99 [facility] Serum or plasma C reactive p rotein measurement (mass/volume)Ordered By: Crispin Subramanian on 12-07-2024 CRP [Mass/Vol] 56.00 mg/L High 0.0-3.0 [facility] Serum or plasma alanine baker otransferase (ALT) measurementOrdered By: Crispin Subramanian on 12-07-2024 ALT [Catalytic activity/Vol] 99 U/L High <35 [facility] Serum or plasma albumin matt urement (mass/volume)Ordered By: Crispin Subramanian on 12-07-2024 Albumin [Mass/Vol] 3.4 g/dL 3.4-4.8 [facility] Serum or plasma albumin/glob ulin mass ratioOrdered By: Crispin Subramanian on 12-07-2024 Albumin/Globulin [Mass ratio] 1.2 {ratio} 0.9-2.4 [facility] Serum or plasma alkaline adama sphatase measurementOrdered By: Crispin Subramanian on 12-07-2024 ALP [Catalytic activity/Vol] 189 U/L High 35-104 [facility] Serum or plasma calcium matt urement (mass/volume)Ordered By: Crispin Subramanian on 12-07-2024 Calcium [Mass/Vol] 10.6 mg/dL 7.6-11.0 [facility] Serum or plasma urea nitroge n measurement (mass/volume)Ordered By: Crispin Subramanian on 12-07-2024 Urea nitrogen [Mass/Vol] 28 mg/dL High 4-19 [facility] Sodium levelOrdered By: Crispin Subramanian on 12-07-2024 Sodium [Moles/Vol] 142 mmol/L 133-145 [facility] Total proteinOrdered By: Crispin Subramanian on 12-07-2024 Protein [Mass/Vol] 6.3 g/dL 5.9-8.4 [facility] White blood cell (WBC) count Ordered By: Crispin Subramanian on 12-07-2024 WBC (Bld) [#/Vol] 4.6 10*3/uL 4.4-11.0 [facility] AATon 11-26-2024 N-9-Kjqvehgphdc 259 mg/dL High 101-187 [facility] Comment on above: Result Comment: Perf ormed At: [place] [id number] [place], [place] [id number] Miguelangel Decker PhD Ph:[phone] Performed By: #### G GT, HBSAG, HBCM, HCV1 #### [place] [address] #### CBC, ESR, LD, 215414, ANEU, CMP, GFR, URIC, ADIFF, ANAIFS #### [address] [address] ENDOon 11-26-2024 tTG IgA 3 units/ml Normal 0-3 [facility] Comment on above: Result Comment: Nega tive 0 - 3 Weak Positive 4 - 10 Positive >10 Tissue Transglutaminase (tTG) has been identified as the endomysial antigen. Studies have demonstr- ated that endomysial IgA antibodies have over 99% specificity for gluten sensitive enteropathy. Performed At: [facility] [address] [place], [place] [id number] Miguelangel Decker PhD Ph:[phone] Performed By: #### G GT, HBSAG, HBCM, HCV1 #### [place] [address] #### CBC, ESR, LD, 981142, ANEU, CMP, GFR, URIC, ADIFF, ANAIFS #### [address] [address] GLIADon 11-26-2024 Deam Gliad IgA Abs 5 units Normal 0-19 [facility] Comment on above: Result Comment: Nega tive 0 - 19 Weak Positive 20 - 30 Moderate to Strong Positive >30 Performed By: #### G GT, HBSAG, HBCM, HCV1 #### [address] [address] #### CBC, ESR, LD, 036606, ANEU, CMP, GFR, URIC, ADIFF, ANAIFS #### [address] [address] Deam Gliad IgG Abs 12 units Normal 0-19 [facility] Comment on above: Result Comment: Nega tive 0 - 19 Weak Positive 20 - 30 Moderate to Strong Positive >30 Performed At: [facility] [address] [place] [id number] Miguelangel Decker PhD Ph:[phone] Performed By: #### G GT, HBSAG, HBCM, HCV1 #### [place] [address] #### CBC, ESR, LD, 902137, ANEU, CMP, GFR, URIC, ADIFF, ANAIFS #### [place] [id number] ANAIFSon 11-25-2024 Antinuclear Ab Screen Negative Normal Negative [facility] Comment on above: Result Comment: Anti -nuclear antibody test is used as an aid in diagnosis of systemic autoimmune diseases. Where positive and clinically warranted, follow-up using disease-specific testing is recommended. Low positive titers are not uncommon with advanced age, certain chronic infections, and malignancies among others. Test methodology: Indirect fluorescence immunoassay (IFA) using HEp-2 cells. Performed By: [facility] [place] [address] [employer]: Sukhdev Velazquez III, M.D. CLIA#: [id number] Performed By: #### G GT, HBSAG, HBCM, HCV1 #### [place] [address] #### CBC, ESR, LD, 128478, ANEU, CMP, GFR, URIC, ADIFF, ANAIFS #### [address] [address] ENA1on 11-25-2024 Centromere <0.2 Normal <1.0 [facility] [facility] Comment on above: Result Comment: Anti -centromere antibody is used as in aid in diagnosis of systemic sclerosis. Clinical correlation is required. Test Methodology: Multiplex flow immunoassay. Performed By: [facility] [place] [address] Knitter Machine: Sukhdev Velazquez III, M.D. CLIA#: [id number] Performed By: #### G GT, HBSAG, HBCM, HCV1 #### [place] [address] #### CBC, ESR, LD, 010853, ANEU, CMP, GFR, URIC, ADIFF, ANAIFS #### [address] [address] Centromere Ab Qualitative Negative Normal Negative [facility] Comment on above: Result Comment: Perf ormed By: [place] [address] Knitter Machine: Sukhdev Velazquez III, M.D. CLIA#: [id number] Performed By: #### G GT, HBSAG, HBCM, HCV1 #### [place] [address] #### CBC, ESR, LD, 298050, ANEU, CMP, GFR, URIC, ADIFF, ANAIFS #### [address] [address] Chromatin Ab Qualitative Negative Normal Negative [facility] Comment on above: Result Comment: Perf ormed By: [place] [address] Knitter Machine: Sukhdev Velazquez III, M.D. CLIA#: [id number] Performed By: #### G GT, HBSAG, HBCM, HCV1 #### [place] [address] #### CBC, ESR, LD, 089791, ANEU, CMP, GFR, URIC, ADIFF, ANAIFS #### [address] [address] Chromatin Antibody <0.2 Normal <1.0 [facility] Comment on above: Result Comment: Test Methodology: Multiplex flow immunoassay. Anti-chromatin antibody is used as an aid in diagnosis of systemic lupus erythematosus. Clinical correlation is required. Test Methodology: Multiplex flow immunoassay. Performed By: [facility] [address] [place] [address] Knitter Machine: Sukhdev Velazquez III, M.D. CLIA#: [id number] Performed By: #### G GT, HBSAG, HBCM, HCV1 #### [address] [address] #### CBC, ESR, LD, 566214, ANEU, CMP, GFR, URIC, ADIFF, ANAIFS #### [address] [address] ABI 1 Antibody <0.2 Normal <1.0 [facility] Comment on above: Result Comment: Perf ormed By: [place] [address] Knitter Machine: Sukhdev Velazquez III, M.D. CLIA#: [id number] Performed By: #### G GT, HBSAG, HBCM, HCV1 #### [place] [address] #### CBC, ESR, LD, 599397, ANEU, CMP, GFR, URIC, ADIFF, ANAIFS #### [address] [address] ABI 1 Antibody Qual Negative Normal Negative [facility] Comment on above: Result Comment: Anti -ABI-1 antibody is used as an aid in diagnosis of polymyositis and dermatomyositis especially with pulmonary involvement. A negative result cannot rule out polymyositis or dermatomyositis. Clinical correlation is required. Test Methodology: Multiplex flow immunoassay. Performed By: [place] [address] Knitter Machine: Sukhdev Velazquez III, M.D. CLIA#: [id number] Performed By: #### G GT, HBSAG, HBCM, HCV1 #### [place] [address] #### CBC, ESR, LD, 511304, ANEU, CMP, GFR, URIC, ADIFF, ANAIFS #### [address] [address] Ribosomal T[employer]ING OFFICE WORKER <0.2 Normal <1.0 [facility] Comment on above: Result Comment: Perf ormed By: [place] [address] Knitter Machine: Sukhdev Velazquez III, M.D. CLIA#: [id number] Performed By: #### G GT, HBSAG, HBCM, HCV1 #### [place] [address] #### CBC, ESR, LD, 914019, ANEU, CMP, GFR, URIC, ADIFF, ANAIFS #### [address] [address] Ribosomal T[employer]ING OFFICE WORKER Qualitative Negative Normal Negative [facility] Comment on above: Result Comment: Anti -Ribosomal RNA (Ribosomal P) antibody is used as an aid in diagnosis of systemic autoimmune diseases especially systemic lupus erythematosus and mixed connective tissue disease. Cross-reactivity with Anti-moulton antibody is not uncommon. Clinical correlation is required. Test Methodology: Multiplex flow immunoassay. Performed By: [facility] [address] [place] [address] Knitter Machine: Sukhdev Velazquez III, M.D. CLIA#: [id number] Performed By: #### G GT, HBSAG, HBCM, HCV1 #### [place] [address] #### CBC, ESR, LD, 757031, ANEU, CMP, GFR, URIC, ADIFF, ANAIFS #### [address] [address] TYPING OFFICE WORKER Antibody <0.2 Normal <1.0 [facility] Comment on above: Result Comment: Anti -TYPING OFFICE WORKER antibody is used as an aid in diagnosis of systemic autoimmune diseases especially systemic lupus erythematosus and mixed connective tissue disease. Cross-reactivity with Anti-moulton antibody is not uncommon. Clinical correlation is required. Test Methodology: Multiplex flow immunoassay. Performed By: [facility] [address] [place] [address] Knitter Machine: Sukhdev Velazquez III, M.D. CLIA#: [id number] Performed By: #### G GT, HBSAG, HBCM, HCV1 #### [place] [address] #### CBC, ESR, LD, 102999, ANEU, CMP, GFR, URIC, ADIFF, ANAIFS #### [address] [address] TYPING OFFICE WORKER Antibody Qualitative Negative Normal Negative [facility] Comment on above: Result Comment: Perf ormed By: [place] [address] Knitter Machine: Sukhdev Velazquez III, M.D. CLIA#: [id number] Performed By: #### G GT, HBSAG, HBCM, HCV1 #### [place] [address] #### CBC, ESR, LD, 103621, ANEU, CMP, GFR, URIC, ADIFF, ANAIFS #### [place] [address] Scleroderma Ab, IgG Qualitative Negative Normal Negative [facility] Comment on above: Result Comment: Perf ormed By: [place] [address] Knitter Machine: Sukhdev Velazquez III, M.D. CLIA#: [id number] Performed By: #### G GT, HBSAG, HBCM, HCV1 #### [place] [address] #### CBC, ESR, LD, 619600, ANEU, CMP, GFR, URIC, ADIFF, ANAIFS #### [place] [address] Scleroderma IgG Ab <0.2 Normal <1.0 [facility] Comment on above: Result Comment: Scl- 70/Scleroderma antibody test is used as an aid in diagnosis of systemic sclerosis especially the diffuse cutaneous form. A negative result cannot rule out systemic sclerosis. The final interpretation should consider clinical picture and other test results such as anti-centromere antibody. Test Methodology: Multiplex flow immunoassay. Performed By: [place] [address] Knitter Machine: Sukhdev Velazquez III, M.D. CLIA#: [id number] Performed By: #### G GT, HBSAG, HBCM, HCV1 #### [place] [address] #### CBC, ESR, LD, 631579, ANEU, CMP, GFR, URIC, ADIFF, ANAIFS #### [place] [address] Sm Antibody <0.2 Normal <1.0 [facility] Comment on above: Result Comment: Perf ormed By: [place] [address] Knitter Machine: Sukhdev Velazquez III, M.D. CLIA#: [id number] Performed By: #### G GT, HBSAG, HBCM, HCV1 #### [place] [address] #### CBC, ESR, LD, 255389, ANEU, CMP, GFR, URIC, ADIFF, ANAIFS #### [place] [address] Sm Antibody Qual Negative Normal Negative [facility] Comment on above: Result Comment: Anti -Sm (Moulton) antibody is used as an aid in diagnosis of systemic lupus erythematosus and its presence is associated with renal disease. A negative result cannot rule out systemic lupus erythematosus. Clinical correlation is required. Test Methodology: Multiplex flow immunoassay. Performed By: [place] [address] Knitter Machine: Sukhdev Velazquez III, M.D. CLIA#: [id number] Performed By: #### G GT, HBSAG, HBCM, HCV1 #### [place] [address] #### CBC, ESR, LD, 215180, ANEU, CMP, GFR, URIC, ADIFF, ANAIFS #### [place] [address] SS-A Antibody <0.2 Normal <1.0 [facility] Comment on above: Result Comment: Test Methodology: Multiplex flow immunoassay. Anti-SSA (anti-Ro) antibody is used as an aid in diagnosis of a variety of systemic autoimmune diseases, Sjogren's syndrome among others. Clinical correlation is required. Test Methodology: Multiplex flow immunoassay. Performed By: [place] [address] Knitter Machine: Sukhdev Velazquez III, M.D. CLIA#: [id number] Performed By: #### G GT, HBSAG, HBCM, HCV1 #### [place] [address] #### CBC, ESR, LD, 558458, ANEU, CMP, GFR, URIC, ADIFF, ANAIFS #### [address] [address] SS-B Antibody <0.2 Normal <1.0 [facility] Comment on above: Result Comment: Anti -SSB (anti-La) antibody is used as an aid in diagnosis of a variety of systemic autoimmune diseases, especially for Sjogren's syndrome and systemic lupus erythematosus. Clinical correlation is required. Test Methodology: Multiplex flow immunoassay. Performed By: [place] [address] Knitter Machine: Sukhdev Velazquez III, M.D. CLIA#: [id number] Performed By: #### G GT, HBSAG, HBCM, HCV1 #### [place] [address] #### CBC, ESR, LD, 370374, ANEU, CMP, GFR, URIC, ADIFF, ANAIFS #### [address] [address] SSA Antibody Qualitative Negative Normal Negative [facility] Comment on above: Result Comment: Perf ormed By: [place] [address] Knitter Machine: Sukhdev Velazquez III, M.D. CLIA#: [id number] Performed By: #### G GT, HBSAG, HBCM, HCV1 #### [place] [address] #### CBC, ESR, LD, 461213, ANEU, CMP, GFR, URIC, ADIFF, ANAIFS #### [address] [address] SSB Antibody Qualitative Negative Normal Negative [facility] Comment on above: Result Comment: Perf ormed By: [place] [address] Knitter Machine: Sukhdev Velazquez III, M.D. CLIA#: [id number] Performed By: #### G GT, HBSAG, HBCM, HCV1 #### [place] [address] #### CBC, ESR, LD, 664348, ANEU, CMP, GFR, URIC, ADIFF, ANAIFS #### [address] [address] .Auto Diffon 11-24-2024 Basophil, Absolute 0.1 10 3/mcL Normal 0.0-0.3 [facility] Comment on above: Performed By: #### G GT, HBSAG, HBCM, HCV1 #### [place] [address] #### CBC, ESR, LD, 575350, ANEU, CMP, GFR, URIC, ADIFF, ANAIFS #### [address] [address] Basophils/100 WBC (Bld) 1.1 % Normal 0.0-2.5 [facility] Comment on above: Performed By: #### G GT, HBSAG, HBCM, HCV1 #### [place] [address] #### CBC, ESR, LD, 696816, ANEU, CMP, GFR, URIC, ADIFF, ANAIFS #### [address] [address] Eosinophil, Absolute 0.0 10 3/mcL Normal 0.0-0.7 [facility] Comment on above: Performed By: #### G GT, HBSAG, HBCM, HCV1 #### [place] [address] #### CBC, ESR, LD, 278838, ANEU, CMP, GFR, URIC, ADIFF, ANAIFS #### [address] [address] Eosinophils/100 WBC (Bld) 0.6 % Normal 0.0-6.0 [facility] Comment on above: Performed By: #### G GT, HBSAG, HBCM, HCV1 #### [place] [address] #### CBC, ESR, LD, 206478, ANEU, CMP, GFR, URIC, ADIFF, ANAIFS #### [address] [address] Lymphocyte, Absolute 0.9 10 3/mcL Normal 0.9-4.3 [facility] Comment on above: Performed By: #### G GT, HBSAG, HBCM, HCV1 #### [place] [address] #### CBC, ESR, LD, 836122, ANEU, CMP, GFR, URIC, ADIFF, ANAIFS #### [address] [address] Lymphocytes/100 WBC (Bld) 17.5 % Low 20.0-40.0 [facility] Comment on above: Performed By: #### G GT, HBSAG, HBCM, HCV1 #### [place] [address] #### CBC, ESR, LD, 113734, ANEU, CMP, GFR, URIC, ADIFF, ANAIFS #### [address] [address] Monocyte, Absolute 0.6 10 3/mcL Normal 0.1-1.4 [facility] Comment on above: Performed By: #### G GT, HBSAG, HBCM, HCV1 #### [place] [address] #### CBC, ESR, LD, 643499, ANEU, CMP, GFR, URIC, ADIFF, ANAIFS #### [address] [address] Monocytes/100 WBC (Bld) 11.9 % Normal 2.0-13.0 [facility] Comment on above: Performed By: #### G GT, HBSAG, HBCM, HCV1 #### [place] [address] #### CBC, ESR, LD, 753088, ANEU, CMP, GFR, URIC, ADIFF, ANAIFS #### [address] [address] Neutrophils/100 WBC (Bld) 68.9 % Normal 50.0-75.0 [facility] Comment on above: Performed By: #### G GT, HBSAG, HBCM, HCV1 #### [address] [address] #### CBC, ESR, LD, 005223, ANEU, CMP, GFR, URIC, ADIFF, ANAIFS #### [address] [address] .GFRon 11-24-2024 Estimated Glomerular Filtration Rate 36 ml/min/1.73sqm Normal [facility] Comment on above: Result Comment: [...] #### G GT, HBSAG, HBCM, HCV1 #### [address] [address] #### CBC, ESR, LD, 575559, ANEU, CMP, GFR, URIC, ADIFF, ANAIFS #### [address] [address] .NEUABSon 11-24-2024 Neutrophil, Absolute 3.5 10 3/mcL Normal 2.3-8.1 [facility] Comment on above: Performed By: #### G GT, HBSAG, HBCM, HCV1 #### [address] [address] #### CBC, ESR, LD, 628728, ANEU, CMP, GFR, URIC, ADIFF, ANAIFS #### [address] [address] AMYon 11-24-2024 Amylase [Catalytic activity/Vol] 57 U/L Normal 25-115 [facility] Comment on above: Performed By: #### G GT, HBSAG, HBCM, HCV1 #### [address] [address] #### CBC, ESR, LD, 986326, ANEU, CMP, GFR, URIC, ADIFF, ANAIFS #### [address] [address] [facility] 11-24-2024 Erythrocyte distribution width (RBC) [Ratio] 16.7 % High 11.5-15.5 [facility] Comment on above: Performed By: #### G GT, HBSAG, HBCM, HCV1 #### [address] [address] #### CBC, ESR, LD, 018823, ANEU, CMP, GFR, URIC, ADIFF, ANAIFS #### [address] [address] Hematocrit (Bld) [Volume fraction] 30.3 % Low 34.0-46.0 [facility] Comment on above: Performed By: #### G GT, HBSAG, HBCM, HCV1 #### [address] [address] #### CBC, ESR, LD, 204000, ANEU, CMP, GFR, URIC, ADIFF, ANAIFS #### [address] [address] Hgb 10.1 G/dL Low 12.0-16.0 [facility] Comment on above: Performed By: #### G GT, HBSAG, HBCM, HCV1 #### [address] [address] #### CBC, ESR, LD, 190371, ANEU, CMP, GFR, URIC, ADIFF, ANAIFS #### [address] [address] MCH (RBC) [Entitic mass] 30.4 pg Normal 27.0-33.0 [facility] Comment on above: Performed By: #### G GT, HBSAG, HBCM, HCV1 #### [address] [address] #### CBC, ESR, LD, 305083, ANEU, CMP, GFR, URIC, ADIFF, ANAIFS #### [address] [address] MCHC 33.5 G/dL Normal 32.0-36.0 [facility] Comment on above: Performed By: #### G GT, HBSAG, HBCM, HCV1 #### [place] [address] #### CBC, ESR, LD, 278142, ANEU, CMP, GFR, URIC, ADIFF, ANAIFS #### [address] [address] MCV (RBC) [Entitic vol] 90.7 fL Normal 80.0-99.0 [facility] Comment on above: Performed By: #### G GT, HBSAG, HBCM, HCV1 #### [place] [address] #### CBC, ESR, LD, 497517, ANEU, CMP, GFR, URIC, ADIFF, ANAIFS #### [address] [address] Platelet 112 10 3/mcL Low 150-450 [facility] Comment on above: Performed By: #### G GT, HBSAG, HBCM, HCV1 #### [place] [address] #### CBC, ESR, LD, 954973, ANEU, CMP, GFR, URIC, ADIFF, ANAIFS #### [address] [address] Platelet mean volume (Bld) [Entitic vol] 8.5 fL Normal 6.6-10.5 [facility] Comment on above: Performed By: #### G GT, HBSAG, HBCM, HCV1 #### [place] [address] #### CBC, ESR, LD, 829252, ANEU, CMP, GFR, URIC, ADIFF, ANAIFS #### [address] [address] RBC 3.34 10 6/mcL Low 4.10-5.30 [facility] Comment on above: Performed By: #### G GT, HBSAG, HBCM, HCV1 #### [place] [address] #### CBC, ESR, LD, 803178, ANEU, CMP, GFR, URIC, ADIFF, ANAIFS #### [address] [address] WBC 5.1 10 3/mcL Normal 4.5-10.8 [facility] Comment on above: Performed By: #### G GT, HBSAG, HBCM, HCV1 #### [place] [address] #### CBC, ESR, LD, 204037, ANEU, CMP, GFR, URIC, ADIFF, ANAIFS #### [address] [address] CMPon 11-24-2024 Albumin Level 3.1 G/dL Low 3.4-4.8 [facility] Comment on above: Performed By: #### G GT, HBSAG, HBCM, HCV1 #### [place] [address] #### CBC, ESR, LD, 367595, ANEU, CMP, GFR, URIC, ADIFF, ANAIFS #### [address] [address] Albumin/Globulin [Mass ratio] 0.8 {ratio} Low 1.1-2.5 [facility] Comment on above: Performed By: #### G GT, HBSAG, HBCM, HCV1 #### [place] [address] #### CBC, ESR, LD, 835813, ANEU, CMP, GFR, URIC, ADIFF, ANAIFS #### [address] [address] ALP [Catalytic activity/Vol] 165 U/L High 40-135 [facility] Comment on above: Performed By: #### G GT, HBSAG, HBCM, HCV1 #### [place] [address] #### CBC, ESR, LD, 363369, ANEU, CMP, GFR, URIC, ADIFF, ANAIFS #### [address] [address] ALT [Catalytic activity/Vol] 127 U/L High 14-59 [facility] Comment on above: Performed By: #### G GT, HBSAG, HBCM, HCV1 #### [place] [address] #### CBC, ESR, LD, 794568, ANEU, CMP, GFR, URIC, ADIFF, ANAIFS #### [address] [address] AST [Catalytic activity/Vol] 145 U/L High 10-40 [facility] Comment on above: Performed By: #### G GT, HBSAG, HBCM, HCV1 #### [place] [address] #### CBC, ESR, LD, 228355, ANEU, CMP, GFR, URIC, ADIFF, ANAIFS #### [address] [address] Bili Total 0.7 mg/dL Normal 0.2-1.0 [facility] Comment on above: Result Comment: Use of this assay is not recommended for patients undergoing treatment with eltrombopag due to the potential for falsely elevated results. Performed By: #### G GT, HBSAG, HBCM, HCV1 #### [place] [address] #### CBC, ESR, LD, 737786, ANEU, CMP, GFR, URIC, ADIFF, ANAIFS #### [address] [address] BUN/Creatinine Ratio 27 ratio Normal 7-27 [facility] Comment on above: Performed By: #### G GT, HBSAG, HBCM, HCV1 #### [address] [address] #### CBC, ESR, LD, 143050, ANEU, CMP, GFR, URIC, ADIFF, ANAIFS #### [address] [address] Calcium [Mass/Vol] 10.8 mg/dL High 8.4-10.2 [facility] Comment on above: Performed By: #### G GT, HBSAG, HBCM, HCV1 #### [place] [address] #### CBC, ESR, LD, 222934, ANEU, CMP, GFR, URIC, ADIFF, ANAIFS #### [address] [address] Chloride [Moles/Vol] 104 mmol/L Normal 98-107 [facility] Comment on above: Performed By: #### G GT, HBSAG, HBCM, HCV1 #### [place] [address] #### CBC, ESR, LD, 989382, ANEU, CMP, GFR, URIC, ADIFF, ANAIFS #### [address] [address] CO2 [Moles/Vol] 32 mmol/L High 23-31 [facility] Comment on above: Performed By: #### G GT, HBSAG, HBCM, HCV1 #### [place] [address] #### CBC, ESR, LD, 527602, ANEU, CMP, GFR, URIC, ADIFF, ANAIFS #### [address] [address] Creatinine [Mass/Vol] 1.58 mg/dL High 0.51-0.95 [facility] Comment on above: Performed By: #### G GT, HBSAG, HBCM, HCV1 #### [place] [address] #### CBC, ESR, LD, 451492, ANEU, CMP, GFR, URIC, ADIFF, ANAIFS #### [address] [address] Electrolyte Balance 8.0 mEq/L Normal 4.0-15.0 [facility] Comment on above: Performed By: #### G GT, HBSAG, HBCM, HCV1 #### [address] [address] #### CBC, ESR, LD, 157917, ANEU, CMP, GFR, URIC, ADIFF, ANAIFS #### [address] [address] Globulin 3.9 G/dL Normal 2.7-4.4 [facility] Comment on above: Performed By: #### G GT, HBSAG, HBCM, HCV1 #### [place] [address] #### CBC, ESR, LD, 206483, ANEU, CMP, GFR, URIC, ADIFF, ANAIFS #### [address] [address] Glucose [Mass/Vol] 98 mg/dL Normal 80-115 [facility] Comment on above: Performed By: #### G GT, HBSAG, HBCM, HCV1 #### [place] [address] #### CBC, ESR, LD, 341565, ANEU, CMP, GFR, URIC, ADIFF, ANAIFS #### [address] [address] Potassium [Moles/Vol] 3.9 mmol/L Normal 3.5-5.1 [facility] Comment on above: Performed By: #### G GT, HBSAG, HBCM, HCV1 #### [place] [address] #### CBC, ESR, LD, 428524, ANEU, CMP, GFR, URIC, ADIFF, ANAIFS #### [address] [address] Sodium [Moles/Vol] 144 mmol/L Normal 136-145 [facility] Comment on above: Performed By: #### G GT, HBSAG, HBCM, HCV1 #### [address] [address] #### CBC, ESR, LD, 397176, ANEU, CMP, GFR, URIC, ADIFF, ANAIFS #### [address] [address] Total Protein 7.0 G/dL Normal 6.4-8.2 [facility] Comment on above: Performed By: #### G GT, HBSAG, HBCM, HCV1 #### [place] [address] #### CBC, ESR, LD, 831442, ANEU, CMP, GFR, URIC, ADIFF, ANAIFS #### [address] [address] Urea nitrogen [Mass/Vol] 43 mg/dL High 7-18 [facility] Comment on above: Performed By: #### G GT, HBSAG, HBCM, HCV1 #### [place] [address] #### CBC, ESR, LD, 988985, ANEU, CMP, GFR, URIC, ADIFF, ANAIFS #### [address] [address] ESRon 11-24-2024 Erythrocyte Sed Rate 20 mm/hr Normal 0-30 [facility] Comment on above: Performed By: #### G GT, HBSAG, HBCM, HCV1 #### [place] [address] #### CBC, ESR, LD, 774132, ANEU, CMP, GFR, URIC, ADIFF, ANAIFS #### [address] [address] GGTon 11-24-2024 Gamma GT 66 U/L High 5-55 [facility] Comment on above: Performed By: #### G GT, HBSAG, HBCM, HCV1 #### [place] [address] #### CBC, ESR, LD, 980316, ANEU, CMP, GFR, URIC, ADIFF, ANAIFS #### [address] [address] HBCMon 11-24-2024 Hep B Core IgM Ab Non-Reactive Normal Non-Reactive [facility] Comment on above: Performed By: #### G GT, HBSAG, HBCM, HCV1 #### [place] [address] #### CBC, ESR, LD, 921032, ANEU, CMP, GFR, URIC, ADIFF, ANAIFS #### [address] [address] Hep B Core IgM Ab Int See Interp Normal [facility] Comment on above: Result Comment: Clinical Interpretation: Samples with a value < 0.80 Index are considered nonreactive (negative) for IgM antibodies to hepatitis B core antigen. Performed By: #### G GT, HBSAG, HBCM, HCV1 #### [place] [address] #### CBC, ESR, LD, 322999, ANEU, CMP, GFR, URIC, ADIFF, ANAIFS #### [address] [address] HBSAGon 11-24-2024 Hep B Surf Ag Non-Reactive Normal Non-Reactive [facility] Comment on above: Performed By: #### G GT, HBSAG, HBCM, HCV1 #### [place] [address] #### CBC, ESR, LD, 517213, ANEU, CMP, GFR, URIC, ADIFF, ANAIFS #### [address] [address] HCVon 11-24-2024 Hep C Ab Non-Reactive Normal Non-Reactive [facility] Comment on above: Performed By: #### G GT, HBSAG, HBCM, HCV1 #### [place] [address] #### CBC, ESR, LD, 786843, ANEU, CMP, GFR, URIC, ADIFF, ANAIFS #### [address] [address] Hep C Ab Int See Interp Normal [facility] Comment on above: Result Comment: [...] #### G GT, HBSAG, HBCM, HCV1 #### [facility] [address] [place] [address] #### CBC, ESR, LD, 663840, ANEU, CMP, GFR, URIC, ADIFF, ANAIFS #### [place] [address] [place], [place] [address] LABORATORYOrdered By: Kellie Alejandra on 11-24-2024 Albumin DL <= 20 mg/L (U) [Mass/Vol] 119.7 mg/L Invalid Interpretation Code AO ADM SS Albumin/Creatinine DL <= 20 mg/L (U) [Mass ratio] 169 mg/G High 0 - 30 mg/G AO Chemistry S Creatinine (U) [Mass/Vol] 71.0 mg/dL Invalid Interpretation Code AO ADM SS LABORATORYOrdered By: [employer] [facility] on 11-24-2024 25-hydroxyvitamin D3 [Mass/Vol] 86.5 [...] LDHon 11-24-2024 LDH 362 U/L High 81-234 [facility] Comment on above: Performed By: #### G GT, HBSAG, HBCM, HCV1 #### [address] [address] #### CBC, ESR, LD, 413211, ANEU, CMP, GFR, URIC, ADIFF, ANAIFS #### [address] [address] LIPon 11-24-2024 Lipase Level 40 U/L Normal 16-77 [facility] Comment on above: Performed By: #### G GT, HBSAG, HBCM, HCV1 #### [place] [address] #### CBC, ESR, LD, 653229, ANEU, CMP, GFR, URIC, ADIFF, ANAIFS #### [address] [address] MALBRon 11-24-2024 U Creatinine 71.0 mg/dL Normal [facility] Comment on above: Performed By: #### G GT, HBSAG, HBCM, HCV1 #### [place] [address] #### CBC, ESR, LD, 077104, ANEU, CMP, GFR, URIC, ADIFF, ANAIFS #### [address] [address] U Microalb 119.7 mg/L Normal [facility] Comment on above: Performed By: #### G GT, HBSAG, HBCM, HCV1 #### [place] [address] #### CBC, ESR, LD, 446706, ANEU, CMP, GFR, URIC, ADIFF, ANAIFS #### [address] [address] U Ratio Alb/Cre 169 mg/G High 0-30 [facility] Comment on above: Performed By: #### G GT, HBSAG, HBCM, HCV1 #### [place] [address] #### CBC, ESR, LD, 403882, ANEU, CMP, GFR, URIC, ADIFF, ANAIFS #### [address] [address] TSHon 11-24-2024 TSH Qn 1.71 m[IU]/L Normal 0.36-3.74 [facility] Comment on above: Performed By: #### G GT, HBSAG, HBCM, HCV1 #### [address] [address] #### CBC, ESR, LD, 052119, ANEU, CMP, GFR, URIC, ADIFF, ANAIFS #### [address] [address] URICon 11-24-2024 Uric Acid Lvl 10.8 mg/dL High 2.6-6.2 [facility] Comment on above: Performed By: #### G GT, HBSAG, HBCM, HCV1 #### [address] [address] #### CBC, ESR, LD, 492673, ANEU, CMP, GFR, URIC, ADIFF, ANAIFS #### [address] [address] VIDHon 11-24-2024 Vit. D 25-Hydroxy 86.5 ng/mL Normal [facility] Comment on above: Result Comment: Inte rpretive Values Based on Total 25(OH) Vitamin D: Deficient <20 ng/mL Insufficient 20 - <30 ng/mL Sufficient 30-100 ng/mL Performed By: #### G GT, HBSAG, HBCM, HCV1 #### [place] [id number] #### CBC, ESR, LD, [id number], ANEU, CMP, GFR, URIC, ADIFF, ANAIFS #### [address] [address] Celiac Disease Profileon ENDOMYSIAL IGA Negative Normal Negative [facility] Comment on above: Performed By: #### L 300.3900, L300.4310, L101.9900, L3410.2400, L100.0500, L501.6710, L500.4050 #### [facility] [address] [place], [place], [id number] IMMUNOGLOB A QN 193 mg/dL Normal 87-352 [facility] Comment on above: Result Comment: Perf ormed at: [facility] [id number] Knitter Machine: Jeronimo Means PhD, Phone: [phone] Performed By: #### L 300.3900, L300.4310, L101.9900, L3410.2400, L100.0500, L501.6710, L500.4050 #### [facility] [address] [place], [address] tTG IGA 3 U/mL Normal 0-3 [facility] Comment on above: Result Comment: Nega tive 0 - 3 Weak Positive 4 - 10 Positive >10 Tissue Transglutaminase (tTG) has been identified as the endomysial antigen. Studies have demonstr- ated that endomysial IgA antibodies have over 99% specificity for gluten sensitive enteropathy. Performed By: #### L 300.3900, L300.4310, L101.9900, L3410.2400, L100.0500, L501.6710, L500.4050 #### [facility] [address] [place], [address] Activated partial thrombopla stin time (aPTT) in platelet poor plasma by coagulation aOrdered By: Jeronimo Perez on 11-17-2024 aPTT Coag (PPP) [Time] 33.8 s 24.1-36.2 [facility] Anion gap in Serum or Plasma Ordered By: Jeronimo Perez on 11-17-2024 Anion gap [Moles/Vol] 16 mmol/L High 5-15 [facility] Automated blood erythrocyte countOrdered By: Jeronimo Perez on 11-17-2024 RBC (Bld) [#/Vol] 3.39 10*6/uL Low 4.2-5.4 [facility] Comment on above: Performed By: #### L 300.3900, L300.4310, L101.9900, L3410.2400, L100.0500, L501.6710, L500.4050 #### [facility] [address] [place], [address] Automated blood hematocrit ( percentage)Ordered By: Jeronimo Perez on 11-17-2024 Hematocrit (Bld) [Volume fraction] 32.0 % Low 37-47 [facility] Comment on above: Performed By: #### L 300.3900, L300.4310, L101.9900, L3410.2400, L100.0500, L501.6710, L500.4050 #### [facility] [address] [place], [address] BUN/creatinine ratioOrdered By: Jeronimo Perez on 11-17-2024 Urea nitrogen/Creatinine [Mass ratio] 18.6 mg/mg 10-20 [facility] Bilirubin, totalOrdered By: Jeronimo Perez on 11-17-2024 Bilirubin [Mass/Vol] 0.59 mg/dL 0.00-1.30 [facility] CBC-Complete Blood Cnt No Di ffon 11-17-2024 RDW SD 57.1 fl High 35.1-43.9 [facility] Comment on above: Performed By: #### L 300.3900, L300.4310, L101.9900, L3410.2400, L100.0500, L501.6710, L500.4050 #### [facility] [address] [place], [address] CRPon 11-17-2024 C-REACTIVE PROT 128.00 mg/L High 0.0-3.0 [facility] Comment on above: Performed By: #### L 300.3900, L300.4310, L101.9900, L3410.2400, L100.0500, L501.6710, L500.4050 #### [facility] [address] [place], [address] Carbon dioxide, total [Moles /volume] in Central venous bloodOrdered By: Jeronimo Perez on 11-17-2024 CO2 [Moles/Vol] 26.0 mmol/L 21.0-32.0 [facility] Chloride assayOrdered By: Belén Perez on 11-17-2024 Chloride [Moles/Vol] 100 mmol/L 98-108 [facility] Comprehensive Metabolic Prof ilon 11-17-2024 Chloride [Moles/Vol] 100 mmol/L Normal 98-108 [facility] Comment on above: Performed By: #### L 300.3900, L300.4310, L101.9900, L3410.2400, L100.0500, L501.6710, L500.4050 #### [facility] [address] [place], [address] CO2 [Moles/Vol] 26.0 mmol/L Normal 21.0-32.0 [facility] Comment on above: Performed By: #### L 300.3900, L300.4310, L101.9900, L3410.2400, L100.0500, L501.6710, L500.4050 #### [facility] [address] [place], [address] GAP 16 High 5-15 [facility] Comment on above: Performed By: #### L 300.3900, L300.4310, L101.9900, L3410.2400, L100.0500, L501.6710, L500.4050 #### [facility] [address] [place], [address] Potassium [Moles/Vol] 3.5 mmol/L Normal 3.3-5.1 [facility] Comment on above: Performed By: #### L 300.3900, L300.4310, L101.9900, L3410.2400, L100.0500, L501.6710, L500.4050 #### [facility] [address] [place], [address] Sodium [Moles/Vol] 142 mmol/L Normal 133-145 [facility] Comment on above: Performed By: #### L 300.3900, L300.4310, L101.9900, L3410.2400, L100.0500, L501.6710, L500.4050 #### [facility] [address] [place], [address] Albumin [Mass/Vol] 3.7 g/dL Normal 3.4-4.8 [facility] Comment on above: Performed By: #### L 300.3900, L300.4310, L101.9900, L3410.2400, L100.0500, L501.6710, L500.4050 #### [facility] [address] [place], [address] Albumin/Globulin [Mass ratio] 1.2 {ratio} Normal 0.9-2.4 [facility] Comment on above: Performed By: #### L 300.3900, L300.4310, L101.9900, L3410.2400, L100.0500, L501.6710, L500.4050 #### [facility] [address] [place], [address] ALK PHOS 131 U/L High 35-104 [facility] Comment on above: Performed By: #### L 300.3900, L300.4310, L101.9900, L3410.2400, L100.0500, L501.6710, L500.4050 #### [facility] [address] [place], [address] ALT [Catalytic activity/Vol] 97 U/L High <=34 [facility] Comment on above: Performed By: #### L 300.3900, L300.4310, L101.9900, L3410.2400, L100.0500, L501.6710, L500.4050 #### [facility] [address] [place], [address] AST [Catalytic activity/Vol] 110 U/L High <=31 [facility] Comment on above: Performed By: #### L 300.3900, L300.4310, L101.9900, L3410.2400, L100.0500, L501.6710, L500.4050 #### [facility] [address] [place], [address] Bilirubin [Mass/Vol] 0.59 mg/dL Normal 0.00-1.30 [facility] Comment on above: Performed By: #### L 300.3900, L300.4310, L101.9900, L3410.2400, L100.0500, L501.6710, L500.4050 #### [facility] [address] [place], [address] BUN/CRE 18.6 RATIO Normal 10-20 [facility] Comment on above: Performed By: #### L 300.3900, L300.4310, L101.9900, L3410.2400, L100.0500, L501.6710, L500.4050 #### [facility] [address] [place], [address] Calcium [Mass/Vol] 11.9 mg/dL High 7.6-11.0 [facility] Comment on above: Performed By: #### L 300.3900, L300.4310, L101.9900, L3410.2400, L100.0500, L501.6710, L500.4050 #### [facility] [address] [place], [address] Creatinine [Mass/Vol] 2.07 mg/dL High 0.70-1.20 [facility] Comment on above: Performed By: #### L 300.3900, L300.4310, L101.9900, L3410.2400, L100.0500, L501.6710, L500.4050 #### [facility] [address], [address] GFR/1.73 sq M.predicted among non-blacks MDRD (S/P/Bld) [Vol rate/Area] 26 mL/min/{1.73_m2} Low >60 [facility] Comment on above: Result Comment: mL/m in/1.73m2 CKD-EPI Creatinine Equation (2020) Performed By: #### L 300.3900, L300.4310, L101.9900, L3410.2400, L100.0500, L501.6710, L500.4050 #### [facility] [address] [place], [address] Globulin (S) [Mass/Vol] 3.2 g/dL Normal 2.2-4.2 [facility] Comment on above: Performed By: #### L 300.3900, L300.4310, L101.9900, L3410.2400, L100.0500, L501.6710, L500.4050 #### [facility] [address] [place], [address] Glucose [Mass/Vol] 106 mg/dL High 70-99 [facility] Comment on above: Performed By: #### L 300.3900, L300.4310, L101.9900, L3410.2400, L100.0500, L501.6710, L500.4050 #### [facility] [address] [place], [address] T PROT 6.9 g/dL Normal 5.9-8.4 [facility] Comment on above: Performed By: #### L 300.3900, L300.4310, L101.9900, L3410.2400, L100.0500, L501.6710, L500.4050 #### [facility] [address] [place], [place], [id number] Urea nitrogen [Mass/Vol] 39 mg/dL High 4-19 [facility] Comment on above: Performed By: #### L 300.3900, L300.4310, L101.9900, L3410.2400, L100.0500, L501.6710, L500.4050 #### [facility] [address] [place], [address] Erythrocyte Sed Rateon 11-17 SED RATE 18 mm/hr Normal 0-30 [facility] Comment on above: Performed By: #### L 300.3900, L300.4310, L101.9900, L3410.2400, L100.0500, L501.6710, L500.4050 #### [facility] [address], [address] Erythrocyte distribution wid th ratioOrdered By: Jeronimo Perez on 11-17-2024 Erythrocyte distribution width (RBC) [Ratio] 16.5 % High 11.6-14.6 [facility] Comment on above: Performed By: #### L 300.3900, L300.4310, L101.9900, L3410.2400, L100.0500, L501.6710, L500.4050 #### [facility] [address] [place], [address] Erythrocyte distribution wid th standard deviationOrdered By: Jeronimo Perez on 11-17-2024 Erythrocyte distribution width (RBC) [Ratio] 57.1 fl High 35.1-43.9 [facility] Erythrocyte sedimentation ra teOrdered By: Jeronimo Perez on 11-17-2024 ESR (Bld) [Velocity] 18 mm/h 0-30 [facility] Glomerular filtration rate ( GFR) estimation/1.73 sq m using serum, plasma, or whole bOrdered By: Jeronimo Perez on 11-17-2024 GFR/1.73 sq M.predicted among non-blacks MDRD (S/P/Bld) [Vol rate/Area] 26 mL/min/{1.73_m2} Low >60 [facility] Comment on above: mL/min/1.73m2 CKD-EP I Creatinine Equation (2020) Hemoglobin measurementOrdere d By: Jeronimo Perez on 11-17-2024 Hemoglobin (Bld) [Mass/Vol] 10.2 g/dL Low 12.0-15.0 [facility] Comment on above: Performed By: #### L 300.3900, L300.4310, L101.9900, L3410.2400, L100.0500, L501.6710, L500.4050 #### [facility] [address] [place], [address] International normalized rat io (INR) calculationOrdered By: Jeronimo Perez on 11-17-2024 INR Coag (Bld) [Relative time] 1.0 {INR} [facility] - Chemistry and C hemistry - challengeOrdered By: Jeronimo Perez on 11-17-2024 AST [Catalytic activity/Vol] 110 U/L High <32 [facility] MCV (mean corpuscular volume ) determinationOrdered By: Jeronimo Perez on 11-17-2024 MCV (RBC) [Entitic vol] 94.4 fL Normal 81-99 [facility] Comment on above: Performed By: #### L 300.3900, L300.4310, L101.9900, L3410.2400, L100.0500, L501.6710, L500.4050 #### [facility] [address] [place], [address] Mean corpuscular hemoglobin (MCH) determinationOrdered By: Jeronimo Perez on 11-17-2024 MCH (RBC) [Entitic mass] 30.1 pg Normal 27.0-32.0 [facility] Comment on above: Performed By: #### L 300.3900, L300.4310, L101.9900, L3410.2400, L100.0500, L501.6710, L500.4050 #### [facility] [address] [place], [address] Mean corpuscular hemoglobin concentration (MCHC) determinationOrdered By: Jeronimo Perez on 11-17-2024 MCHC (RBC) [Mass/Vol] 31.9 g/dL Low 32-36 [facility] Comment on above: Performed By: #### L 300.3900, L300.4310, L101.9900, L3410.2400, L100.0500, L501.6710, L500.4050 #### [facility] [address] [place], [address] Mean platelet volume determi nationOrdered By: Jeronimo Perez on 11-17-2024 Platelet mean volume (Bld) [Entitic vol] 12.6 fL High 6.2-12.0 [facility] Comment on above: Performed By: #### L 300.3900, L300.4310, L101.9900, L3410.2400, L100.0500, L501.6710, L500.4050 #### [facility] [address] [place], [address] Partial Thromboplast Timeon 11-17-2024 aPTT Coag (Bld) [Time] 33.8 s Normal 24.1-36.2 [facility] Comment on above: Performed By: #### L 300.3900, L300.4310, L101.9900, L3410.2400, L100.0500, L501.6710, L500.4050 #### [facility] [address] [place], [address] Platelet countOrdered By: Belén Perez on 11-17-2024 Platelets (Bld) [#/Vol] 108 10*3/uL Low 150-450 [facility] Comment on above: Performed By: #### L 300.3900, L300.4310, L101.9900, L3410.2400, L100.0500, L501.6710, L500.4050 #### [facility] [address] [place], [place], [id number] Potassium measurement (mass/ volume)Ordered By: Jeronimo Perez on 11-17-2024 Potassium (Unsp spec) [Mass/Vol] 3.5 mmol/L 3.3-5.1 [facility] Prothrombin Time w/INRon INR Coag (PPP) [Relative time] 1.0 {INR} Normal [facility] Comment on above: Performed By: #### L 300.3900, L300.4310, L101.9900, L3410.2400, L100.0500, L501.6710, L500.4050 #### [facility] [address] [place], [place], [id number] PT Coag (PPP) [Time] 13.2 s Normal 11.7-14.9 [facility] Comment on above: Performed By: #### L 300.3900, L300.4310, L101.9900, L3410.2400, L100.0500, L501.6710, L500.4050 #### [facility] [address] [place], [place], [id number] Prothrombin timeOrdered By: Jeronimo Perez on 11-17-2024 PT Coag (PPP) [Time] 13.2 s 11.7-14.9 [facility] Serum creatinine measurement (mass/volume)Ordered By: Jeronimo Perez on 11-17-2024 Creatinine [Mass/Vol] 2.07 mg/dL High 0.70-1.20 [facility] Serum globulin measurementOr dered By: Jeronimo Perez on 11-17-2024 Globulin (S) [Mass/Vol] 3.2 g/dL 2.2-4.2 [facility] Serum glucose measurement (m ass/volume)Ordered By: Jeronimo Perez on 11-17-2024 Glucose [Mass/Vol] 106 mg/dL High 70-99 [facility] Serum or plasma C reactive p rotein measurement (mass/volume)Ordered By: Jeronimo Perez on 11-17-2024 CRP [Mass/Vol] 128.00 mg/L High 0.0-3.0 [facility] Serum or plasma IgA measurem ent (mass/volume)Ordered By: Jeronimo Perez on 11-17-2024 IgA [Mass/Vol] 193 mg/dL 87-352 [facility] Comment on above: Performed at: [facility] [address] [id number] Director: Jeronimo Means PhD, Phone: [phone] Serum or plasma alanine bakre otransferase (ALT) measurementOrdered By: Jeronimo Perez on 11-17-2024 ALT [Catalytic activity/Vol] 97 U/L High <35 [facility] Serum or plasma albumin matt urement (mass/volume)Ordered By: Jeronimo Perez on 11-17-2024 Albumin [Mass/Vol] 3.7 g/dL 3.4-4.8 [facility] Serum or plasma albumin/glob ulin mass ratioOrdered By: Jeronimo Perez on 11-17-2024 Albumin/Globulin [Mass ratio] 1.2 {ratio} 0.9-2.4 [facility] Serum or plasma alkaline adama sphatase measurementOrdered By: Jeronimo Perez on 11-17-2024 ALP [Catalytic activity/Vol] 131 U/L High 35-104 [facility] Serum or plasma calcium matt urement (mass/volume)Ordered By: Jeronimo Perez on 11-17-2024 Calcium [Mass/Vol] 11.9 mg/dL High 7.6-11.0 [facility] Serum or plasma urea nitroge n measurement (mass/volume)Ordered By: Jeronimo Perez on 11-17-2024 Urea nitrogen [Mass/Vol] 39 mg/dL High 4-19 [facility] Serum tissue transglutaminas e (tTG) IgA antibody assay (units/volume)Ordered By: Jeronimo Perez on 11-17-2024 tTG IgA Qn (S) 3 U/mL 0-3 [facility] Comment on above: Negative 0 - 3 Weak Positive 4 - 10 Positive >10 Tissue Transglutaminase (tTG) has been identified as the endomysial antigen. Studies have demonstr- ated that endomysial IgA antibodies have over 99% specificity for gluten sensitive enteropathy. Sodium levelOrdered By: Bess Perez on 11-17-2024 Sodium [Moles/Vol] 142 mmol/L 133-145 [facility] Total proteinOrdered By: Silver Perez on 11-17-2024 Protein [Mass/Vol] 6.9 g/dL 5.9-8.4 [facility] White blood cell (WBC) count Ordered By: Bessbrynn Nelida on 11-17-2024 WBC (Bld) [#/Vol] 6.7 10*3/uL Normal 4.4-11.0 [facility] Comment on above: Performed By: #### L 300.3900, L300.4310, L101.9900, L3410.2400, L100.0500, L501.6710, L500.4050 #### [facility] [address] [place], [address] CT ABDOMEN/PELVIS W/ CONTRAS Ton 08-27-2024 CT [...] a (more content not included)... Normal [facility] Bacteria Ur Culton 5 Bacteria identified [...] technique or straight catheterization for???urine???collect ion. Normal [facility] Comment on above: Performed By: #### 6 30-4 #### [facility] CLIA [id number] [address] [place] [address] [place] CNOVon 08-22-2024 CNOV Office Visit ([facility] ) KERRY CHAO ([id number]) 1955 F Date Time Provider Department 08/22/24 1:45 PM TO ALCAR[facility] During your visit today, we recorded the following information about you: Temperature Pulse Respiration Blood pressure 98.9 degrees 94/minute 16/minute 122/68 Weight 48.7 kg GabeoT mercerAPRN.HOPPER FEEDER 08/22/2024 2:21 PM Signed [facility] [...] R10.9 - Increase fiber in diet - Terrell low residue diet - IBUPROFEN 400 MG TABLET - follow up with PCP if not improving, continue plan for CT scan this week To Alcaraz APRN.HOPPER FEEDER -I have reviewed and upda (more content not included)... Normal [facility] UA DIP, URINE (POC)on 2024 BILIRUBIN UA (POCT) Small Abnormal Negative [facility] CLARITY UA (POCT) [facility] COLOR UA (POCT) Yellow [facility] GLUCOSE UA (POCT) Negative Negative mg/dL [facility] Hemoglobin Ql (U) Negative Negative [facility] Interpretation and review of laboratory results Abnormal [facility] KETONE UA (POCT) Trace Negative mg/dL [facility] LEUKOCYTES UA (POCT) Trace Abnormal Negative [facility] NITRITE UA (POCT) Negative Negative [facility] PH UA (POCT) 5.5 4.5 - 8.0 [facility] Protein Ql (U) Negative Negative mg/dL [facility] SPECIFIC GRAVITY UA (POCT) 1.025 1.005 - 1.030 [facility] UROBILINOGEN UA (POCT) 0.2 Meaghan l E.U./dL [facility] Location:[facility], [address] [place] [address], [place], [place], [id number] [place] [address] POINT OF CARE [facility] LABORATORYOrdered By: SYSTEM SYSTEM on 11-19-2023 [...] calculated value from Hemoglobin A1C and is lead customer service representative of the average blood glucose level [...] Reason for Exam: fall with headstrike FINDINGS: Sem Manager (topogram) images: Unremarkable BRAIN/VENTRICLES: No evidence of [...] 08/30/2023 3:13:29 PM Ordering Provider: HEAVEN Jay [facility] [place] Darian 09-18-2022 U Creatinine 148.2 mg/dL High 28.0-117.0 [facility] Comment on above: Performed By: #### M ALBR #### Lissy [address] [address] U Microalb 2631 mcg/dL Normal [facility] Comment on above: Performed By: #### M ALBR #### [facility] [address], [place] [address] U Ratio Alb/Cre 18 mcg/mg Normal 0-30 [facility] Comment on above: Performed By: #### M ALBR #### [facility] [address], [place] [address] LABORATORYOrdered By: Dina Brooks on 06-20-2021 Adenovirus [...] notified. Results have been reported to the [facility]. FLUBV RNA TAB+non-probe Ql (Nph) Not Detected [...] 15:11-0400 Body temperature 98.5 [degF] Ranjith Ling AUDIT INTERN-C Work Phone: [facility] 12-24-2024 15:11-0400 Diastolic blood pressure 85 mm[Hg] Ranjith Ling AUDIT INTERN-C Work Phone: [facility] 12-24-2024 15:11-0400 Heart rate 97 /min Ranjith Ling AUDIT INTERN-C Work Phone: [facility] 12-24-2024 15:11-0400 Respiratory rate 16 /min Ranjith Mahmoodpkins AUDIT INTERN-C Work Phone: [facility] 12-24-2024 15:11-0400 SaO2% (BldA) [Mass fraction] 95 % Ranjith Anuradha AUDIT INTERN-C Work Phone: [facility] 12-24-2024 15:11-0400 Systolic blood pressure 162 mm[Hg] Ranjith Ling AUDIT INTERN-C Work Phone: [facility] 12-24-2024 12:07-0400 Body height 167.64 cm Ranjith Mathews AUDIT INTERN-C Work Phone: [facility] 12-24-2024 12:07-0400 Body mass index (BMI) [Ratio] 18.1 kg/m2 Ranjith Mathews AUDIT INTERN-C Work Phone: [facility] 12-24-2024 12:07-0400 Body weight 50.8 kg Ranjith Ling AUDIT INTERN-C Work Phone: [facility] 12-22-2024 14:33-0400 Body mass index (BMI) [Ratio] 18.1 kg/m2 Ranjith Mahmoodpkins AUDIT INTERN-C Work Phone: [facility] 12-22-2024 14:33-0400 Body temperature 98.6 [degF] Ranjith Ling AUDIT INTERN-C Work Phone: [facility] 12-22-2024 14:33-0400 Body weight 50.91 kg Ranjith Mahmoodpkins AUDIT INTERN-C Work Phone: [facility] 12-22-2024 14:33-0400 Diastolic blood pressure 65 mm[Hg] Ranjith Mahmoodpkins AUDIT INTERN-C Work Phone: [facility] 12-22-2024 14:33-0400 Heart rate 103 /min Ranjith Mahmoodpkins AUDIT INTERN-C Work Phone: [facility] 12-22-2024 14:33-0400 Respiratory rate 18 /min Ranjith Mahmoodpkins AUDIT INTERN-C Work Phone: [facility] 12-22-2024 14:33-0400 SaO2% (BldA) [Mass fraction] 100 % Ranjith Mahmoodpkins AUDIT INTERN-C Work Phone: [facility] 12-22-2024 14:33-0400 Systolic blood pressure 104 mm[Hg] Ranjith Mahmoodpkins AUDIT INTERN-C Work Phone: [facility] 12-07-2024 15:00-0400 Diastolic blood pressure 72 mm[Hg] Ranjith Mathews AUDIT INTERN-C Work Phone: [facility] 12-07-2024 15:00-0400 Heart rate 78 /min Ranjith Mathews AUDIT INTERN-C Work Phone: [facility] 12-07-2024 15:00-0400 SaO2% (BldA) [Mass fraction] 98 % Ranjith Mathews AUDIT INTERN-C Work Phone: [facility] [facility] 12-07-2024 15:00-0400 Systolic blood pressure 131 mm[Hg] Ranjith Ling AUDIT INTERN-C Work Phone: [facility] 12-07-2024 14:39-0400 Body temperature 97 [degF] Ranjith Ling AUDIT INTERN-C Work Phone: [facility] 12-07-2024 14:39-0400 Respiratory rate 24 /min Ranjith Ling AUDIT INTERN-C Work Phone: [facility] 12-07-2024 12:37-0400 Body height 1463.04 cm Ranjith Ling AUDIT INTERN-C Work Phone: [facility] 12-07-2024 12:37-0400 Body mass index (BMI) [Ratio] 0 kg/m2 Ranjith Ling AUDIT INTERN-C Work Phone: [facility] 12-07-2024 12:37-0400 Body weight 2.43 kg Ranjtih Ling AUDIT INTERN-C Work Phone: [facility] 08-22-2024 13:51-0400 Body temperature 98.91 [degF] To Alcaraz RADIO INSTALLER AUTOMOBILE.HOPPER FEEDER Work Phone: [facility] 08-22-2024 13:51-0400 Body weight 48.7 kg To Alcaraz RADIO INSTALLER AUTOMOBILE.HOPPER FEEDER Work Phone: [facility] 08-22-2024 13:51-0400 Diastolic blood pressure 68 mm[Hg] To Alcaraz RADIO INSTALLER AUTOMOBILE.HOPPER FEEDER Work Phone: [facility] 08-22-2024 13:51-0400 Heart rate 94 /min To Alcaraz RADIO INSTALLER AUTOMOBILE.HOPPER FEEDER Work Phone: [facility] 08-22-2024 13:51-0400 Respiratory rate 16 /min To Alcaraz RADIO INSTALLER AUTOMOBILE.HOPPER FEEDER Work Phone: [facility] 08-22-2024 13:51-0400 SaO2% (BldA) [Mass fraction] 95 % To Alcaraz RADIO INSTALLER AUTOMOBILE.HOPPER FEEDER Work Phone: [facility] 08-22-2024 13:51-0400 Systolic blood pressure 122 mm[Hg] To Alcaraz RADIO INSTALLER AUTOMOBILE.HOPPER FEEDER Work Phone: [facility] 08-30-2023 13:47-0400 Body temperature 97.34 [degF] ARTURO SHAIKH DO [facility] 08-30-2023 13:47-0400 Diastolic Blood Pressure Non-Invasive 75 mm[Hg] ARTURO SHAIKH DO [facility] 08-30-2023 13:47-0400 Heart rate 100 /min ARTURO SHAIKH DO [facility] 08-30-2023 13:47-0400 Respiratory rate 20 /min ARTURO SHAIKH DO [facility] 08-30-2023 13:47-0400 Systolic Blood Pressure Non-Invasive 106 mm[Hg] ARTURO SHAIKH DO [facility] Encounters Encounter Date Encounter Type Care Provider Facility Start: 01-21-2025 ambulatory Ranjith Ling Facility:[facility] Start: 01-11-2025 End: 01-11-2025 ambulatory Ranjith Ling Facility:[facility] Start: 01-06-2025 ambulatory Ten Thornton ty:[facility] Start: 12-29-2024 End: 12-29-2024 ambulatory Ranjith Ling Facility:[facility] Start: 12-29-2024 End: 12-29-2024 ambulatory Ranjith Ling Facility:[facility] Start: 12-22-2024 End: 12-22-[address] Ten Nogueira MD -[facility] Work Phone: Start: 12-22-2024 End: 12-22-2024 ambulatory Ranjith Ling AUDIT INTERN-C Work Phone: -[facility] Start: 12-16-2024 End: 12-16-2024 ambulatory RANJITH LING RADIO INSTALLER AUTOMOBILE - HOPPER FEEDER Facility:[facility] Start: 12-16-2024 End: 12-16-2024 Patient encounter procedure RANJITH LING RADIO INSTALLER AUTOMOBILE - HOPPER FEEDER [facility] Start: 12-11-2024 ambulatory [facility] Facility :[facility] Start: 12-07-2024 End: 12-07-2024 Emergency department patient visit Ranjith Ling AUDIT INTERN-C Work Phone: -Emergency Department Work Phone: Start: 11-26-2024 Non-patient / Non-visit Allegra Garcia -[facility] Work Phone: Start: 11-26-2024 ambulatory Allegra Hylton Facility :[facility] Start: 11-24-2024 End: 11-28-2024 Outreach Lab RANJITH LING RADIO INSTALLER AUTOMOBILE - HOPPER FEEDER [facility] Start: 11-24-2024 End: 11-28-2024 ambulatory RANJITH LING RADIO INSTALLER AUTOMOBILE - HOPPER FEEDER Facility:[facility] Start: 11-24-2024 End: 11-24-2024 Patient encounter procedure RANJITH LING RADIO INSTALLER AUTOMOBILE - HOPPER FEEDER [facility] Start: 11-17-2024 End: 11-17-2024 ambulatory Ranjith Ling AUDIT INTERN-C Work Phone: [facility] Start: 11-17-2024 End: 11-17-[address] Jeronimo Perez MD -[facility] Work Phone: Start: 11-17-2024 End: 11-17-2024 ambulatory Jeronimo spike Facility:[facility] Start: 08-25-2024 End: 08-28-2024 ambulatory RANJITH LING Facility:[facility] Start: 08-24-2024 End: 08-24-2024 Follow-up encounter Sole Villa RADIO INSTALLER AUTOMOBILE.HOPPER FEEDER Work Phone: [facility] Comment on above: Results Start: 08-22-2024 End: 08-22-2024 Office outpatient visit 25 minutes To Alcaraz RADIO INSTALLER AUTOMOBILE.HOPPER FEEDER Work Phone: [facility] Comment on above: UTI symptoms (Primar y Dx); Acute left flank pain Start: 08-22-2024 End: 08-22-2024 ambulatory RANJITH LING Facility:[facility] Start: 11-19-2023 End: 11-19-2023 Patient encounter procedure RANJITH LING RADIO INSTALLER AUTOMOBILE - HOPPER FEEDER [facility] Start: 08-30-2023 End: 08-30-2023 Emergency department patient visit ARTURO SHAIKH [facility] Start: 11-30-[address] JERONIMO PEREZ MD Fa cility:[facility] Start: 10-11-2022 Orders Only Melissa Hernadez er RADIO INSTALLER AUTOMOBILE.HOPPER FEEDER Work Phone: Pulmonary Medicine Comment on above: Tobacco use disorder (Primary Dx) Start: 09-30-2022 ambulatory RANJITH BENITES RADIO INSTALLER AUTOMOBILE - HOPPER FEEDER Facility:[facility] Start: 09-18-2022 End: 09-22-2022 ambulatory RANJITH LING RADIO INSTALLER AUTOMOBILE - HOPPER FEEDER Facility:[facility] Start: 01-10-2022 Telephone encounter Bonny Pnea RADIO INSTALLER AUTOMOBILE.HOPPER FEEDER Work Phone: [facility] Comment on above: Results Start: 07-04-2021 End: 07-04-2021 Patient encounter procedure RANJITH LING RADIO INSTALLER AUTOMOBILE - HOPPER FEEDER [facility] Start: 06-20-2021 End: 06-20-2021 Patient encounter procedure RANJITH LING RADIO INSTALLER AUTOMOBILE - HOPPER FEEDER [facility] Procedures Date Procedure Procedure Detail Performing Clinician Start: 12-29-2024 Calcium measurement Baldemar Ling AUDIT INTERN-C Work Phone: Start: 12-29-2024 Estimated creatinine clearance Ranjith Ling AUDIT INTERN-C Work Phone: Start: 12-24-2024 Parathyroid hormone measurement Ranjith Ling AUDIT INTERN-C Work Phone: Start: 12-22-2024 Urnls dip stick/tabl et reagent auto microscopy Ranjith Ling AUDIT INTERN-C Work Phone: Start: 12-22-2024 Folic acid measureme nt, RBC Ranjith Ling AUDIT INTERN-C Work Phone: Comment on above: Performed at: [address] Director: Jeronimo Means PhD, Phone: [phone] Start: 12-22-2024 Immature reticulocyt e fraction Ranjith Ling AUDIT INTERN-C Work Phone: Start: 12-22-2024 Serum inorganic phos phate measurement Ranjith Ling AUDIT INTERN-C Work Phone: Start: 12-22-2024 Total iron binding capacity measurement Ranjith Ling AUDIT INTERN-C Work Phone: Start: 12-22-2024 Urine culture Ranjith price AUDIT INTERN-C Work Phone: Start: 12-07-2024 Estimated creatinine clearance Ranjith Ling AUDIT INTERN-C Work Phone: Start: 11-17-2024 Endomysial antibody IgA level Ranjith Ling AUDIT INTERN-C Work Phone: Start: 08-22-2024 Urnls dip stick/tabl et rgnt auto w/o microscopy To Alcaraz RADIO INSTALLER AUTOMOBILE.HOPPER FEEDER Work Phone: Plan of Treatment Date Care Activity Detail Author Start: 08-29-2033 Urine microalbumin profile DTaP,Tdap,Td Vaccine (3 - Td or Tdap) [facility] Start: 12-13-2031 RSV Vaccine (1 - 1-d ose 75+ series) RSV Vaccine (1 - 1-dose 75+ series) [facility] Start: 08-14-2025 Screening for malign ant neoplasm of colon [facility] Start: 01-06-2025 CT of thorax with contrast Chest WITH Contrast [facility] Start: 01-06-2025 Patient encounter procedure Registered Clinical -Cat Scan [facility] Work Phone: Start: 12-29-2024 Patient encounter procedure Registered Clinical -Laboratory Specimen Work Phone: Start: 12-29-2024 Registered Recurring Registered Recu rring -[facility] Start: 12-29-2024 End: 12-29-2024 Patient encounter procedure Lymphadenopathy -[facility] Work Phone: Start: 12-07-2024 [facility] Start: 11-02-2024 Influenza vaccination Influenz a Vaccine (Season Ended) [facility] Start: 03-04-2024 Advance Directive Discussion Advance Directive Discussion [facility] Start: 11-03-2023 Covid-19 Vaccine ( season) Covid-19 Vaccine ( season) [facility] Start: 11-02-2022 Influenza vaccination INFLUENZA (#1) [facility] Start: 03-04-2022 ADVANCE DIRECTIVE DISCUSSION ADVANCE DIRECTIVE DISCUSSION [facility] Start: 03-04-2022 DEPRESSION ASSESSMENT DEPRESSION ASS ESSMENT [facility] Start: 2021 ADVANCE DIRECTIVE DISCUSSION ADVANCE DIRECTIVE DISCUSSION [facility] Start: 2021 BONE DENSITY BONE DENSITY [facility] Start: 2021 Screening for osteoporosis Bone Density Screening [facility] Start: 11-02-2021 Influenza vaccination INFLUENZA (#1) [facility] Start: 03-04-2021 DEPRESSION ASSESSMENT DEPRESSION ASS ESSMENT [facility] Start: 09-13-2016 Pneumococcal Vaccine : 50+ (2 of 2 - PCV) Pneumococcal Vaccine: 50+ (2 of 2 - PCV) [facility] Start: 11-09-2015 Shingrix Vaccine (2 of 3) Shingrix Vaccine (2 of 3) [facility] Start: 2006 SHINGRIX VACCINE (1 of 2) SHINGRIX VACCINE (1 of 2) [facility] Start: 2001 COLOGUARD (FIT-DNA) COLOGUARD (FIT-D NA) [facility] Start: 2001 Colonoscopy COLONOSCOPY [facility] Start: 2001 COLORECTAL CANCER SCREENING COLORECTAL CANCER SCREENING [facility] Start: [address] COLONOGRAPHY [facility] Start: 2001 DIABETES SCREEN DIABETES SCREEN [facility] Start: 2001 Diabetes Screening Diabetes Screenin g [facility] Start: 2001 FECAL OCCULT BLOOD FECAL OCCULT BLOO D [facility] Start: 2001 Lipid panel Lipid Screening [facility] Start: 2001 LIPID SCREEN LIPID SCREEN [facility] Start: 2001 Screening for malign ant neoplasm of colon [facility] Start: 2001 SIGMOIDOSCOPY SIGMOIDOSCOPY [facility] Start: 1996 Mammography MAMMOGRAM [facility] Start: 1996 Screening for malign ant neoplasm of breast Mammogram Screening [facility] Start: 12-13-1975 Urine microalbumin profile DTAP,TDAP,TD (1 - Tdap) [facility] Start: 1974 Anxiety Screening Anxiety Screening [facility] Start: 1974 Depression Screening Depression Scre ening [facility] Start: 1974 HEPATITIS C SCREENING HEPATITIS C [facility] Start: 1974 Hepatitis C screening Hepatitis C [facility] Start: 1974 HIV SCREENING HIV SCREENING [facility] Start: 1962 PNEUMOCOCCAL: 65+ (1 - PCV) PNEUMOCOCCAL: 65+ (1 - PCV) [facility] Start: 06-12-1957 COVID-19 VACCINE (#1) COVID-19 VACCI NE (#1) [facility] Bacteria identified in Urine by Culture BACTERIAL CULTURE, URINE Microbiology Routine UTI symptoms Ordered: 08/22/2024 [facility] Work Phone: Comment on above: Ordered: 08/22/2024 Bacteria identified in Urine by Culture BACTERIAL CULTURE, URINE Microbiology Routine UTI symptoms Ordered: 08/24/2024 [facility] Work Phone: Comment on above: Ordered: 08/24/2024 Patient Education ED Abdominal P ain Unkn Cause Fem [facility] Work Phone: [facility] Immunizations Immunization Date Immunization Notes Care Provider Debbie rubin 08-30-2023 tetanus toxoid, redu jocelyn diphtheria toxoid, and acellular pertussis vaccine, adsorbed ARTURO SHANTAJan DO [facility] 12-28-2016 influenza virus vaccine, unspecified formulation To Alcaraz ALEX.HOPPER FEEDER Work Phone: [facility] Payers Date Payer Category Payer Self-pay 2023 Unknown [id number] 2021 Private Health Insurance [id number] 2015 Private Health Insurance [id number] 1955 Unknown [id number] 2.16.8 [id number] 1955 Unknown [id number] 2.16.8 [id number] 1955 Unknown [id number] 2.16.8 [id number] 1955 Unknown [id number] 2.16.8 [id number] 1955 Unknown [id number] 2.16. [id number] 1955 Unknown [id number] 2.16. [id number] 1955 Unknown [id number] 2.16. [id number] 1955 Unknown [id number] 2.16. [id number] Unknown [id number] Unknown [id number] 2.16.8 [id number] Unknown [id number] 2.16.8 [id number] Unknown [id number] 2.16.8 40.1.514238.3.579.2.462 Unknown [id number] 2.16.8 40.1.568605.3.579.2.462 Unknown [id number] 2.16.8 40.1.647812.3.579.2.462 Unknown [id number] 2.16.8 40.1.360034.3.579.2.462 Unknown [id number] 2.16.8 40.1.173892.3.579.2.462 Unknown [id number] 2.16.8 40.1.113011.3.579.2.462 Unknown [id number] 2.16.8 [id number] Unknown [id number] 2.16.8 [id number] Unknown [id number] 2.16.8 [id number] Social History Date Type Detail Facility Start: 12-08-2018 Tobacco smoking status Heavy t obacco smoker (finding) [facility] Start: 1955 Sex Assigned At Female A [facility] Start: 07-04-2021 Tobacco smoking status Ex-smoker (fi nding) [facility] Start: 01-09-2022 End: 12-07-2024 Tobacco smoking status WYIS Smokes tobacco daily [facility] Work Phone: History of tobacco use Cigarette Smoker [facility] Work Phone: Start: 01-09-2022 Tobacco use and exposure Smokeless tobacco non-user [facility] Work Phone: Start: 1955 Sex Assigned At Not on file [facility] Start: 12-30-2021 End: 01-09-2022 Exposure to SARS-CoV-2 (event) Not sure [facility] Start: 01-09-2022 End: 08-22-2024 History of Social function [facility] Start: 01-09-2022 End: 08-22-2024 Tobacco use panel [facility] Start: 04-23-2023 End: 12-22-2024 Tobacco smoking status Light tobacco smoker (finding) [facility] Sexual O[facility] Start: 01-26-2019 Sex Female (finding) [facility] NEGATED: Highlighted rowStart: NINF History of tobacco use Passive smoker [facility] Work Phone: Functional Status Date Assessment Result Facility 08-30-2023 Functional Status Independent [facility] 08-30-2023 Functional Status Standard Safet y ID band on, Call device within reach, Bed in low position, Wheels locked [facility] Mental Status Date Assessment Result Facility 12-24-2024 Cognitive function Awake [facility] Work Phone: 12-07-2024 Cognitive function Level Of Consciousness Awake [facility] Work Phone: 08-30-2023 Mental Status Orientation Oriented x 4 [facility] 08-30-2023 Mental Status [facility] Clinical Notes 06-20-2021 to 12-22-2024 Note Date & Type Note Facility 12-22-2024 Progress note [facility] 12-22-2024 Progress note Note Date/Time December 22, 2024 4:30pm [facility] [address] [place] [id number] OFFICE VISIT Date of Service: 12/22/24 1424 MR#: [id number] Acct: [id number] Name: ESTELLA CHAO Rep #: [id number] : 1955 From: Ten hernandez MD Age/Sex: 69/F Location: [facility] Status: Signed HPI Subjective Date of [...] estimated to be 2.6 cm in axis. [facility] Medical History (Updated 12/22/24 @ 15:04 [...] PO QDAY FOR ENERGY 12/22/24 History mv-mn [id number] 1 tab PO DAILY SUPPLEMEN T 12/07/24 [...] no focal motor deficits Coordination / Balance: hiszpp-bs-waen test normal Speech: speech normal Gait (Neuro): [...] 5. Follow-up after above. Ten Nogueira MD Assembler Insulator, [facility] Divisions of Medical Oncology & Hematology Department of Internal Medicine [facility] [place] [address] This note was generated using a voice [...] DAVID Ling; Dr. Jeronimo Perez MD ~ [facility] Work Phone: 1(785) 575-797210-21-2025 Evaluation note* Diagnosis Onset Date Resolution Status Admit Date Anemia acute December 22, 2024 2:16pm Splenomegaly acute December 2:16pm Lymphadenopathy deleted December 032024 2:16pm Lymphadenopathy deleted December 032024 9:52am [facility] Work Phone: 1(594) 978-503310-06-2025 Discharge summary [facility] Medical Records Department [address] [place] [address] Emergency Department Summary 12/07/24 MR#: [id number] Acct: [id number] Name: ESTELLA CHAO Rep #:[id number] : 1955 68 From: Crispin Subramanian MD PCP: Ranijth Ling, AUDIT INTERN-Morteza Sta tus:DEP ER Location: ED HPI History [...] in for her pain. She was seenat [facility]. Patient is scheduled for an [...] tightness or heaviness. She denies dyspnea or [place] exertion. Denies orthopnea or PND. She does report swelling of her ankles recently. Patient has no history of alcohol use or cirrhosis. Prior similar symptoms: Yes Recent Illness/Hospitalization: Yes (Seen by PCP approximately 2 weeks ago. Hercreatinine at that time was ely) [facility] Medical History Depression Emphysema lung COPD (chronic obstructive pulmonary disease) Postmenopausal Lymph node enlargement IBS (irritable bowel syndrome) Positive colorectal cancer screening using Cologuard test Anemia Acute distention of stomach Abdominal pain Celiac disease Hypertension Vitamin D deficiency Splenomegaly Home Medications ?Medication ?Instructions ?Recorded ?Last Taken ?Type cholecalciferol (vitamin D3) 1,250 1,250 mcg PO [facility] BONE True Pivot 11/26/24 11/25/24 History mcg (50,000 unit) capsule lisinopril 10 1 tab PO QDAY BLOOD PRESSURE 11/26/24 12/07/24 History mg-hydrochlorothiazide 12.5 mg tablet vitamin B complex 1 tab PO QDAY FOR ENERGY 12/06/24 History mv-mn [id number]-uhz-[id number] 1 tab PO DAILY SUPPLEMEN T 12/07/24 [...] (Auto) 63.7 Lymph % (Auto) 17.7 L [place] % (Auto) 15.3 H Eos % (Auto) [...] release (DR/EC) 40 mg PO DAILY mv-mn [id number]-[id number]-[id number] [Centrum ] 1 tab PO DAILY Primary Care Provider: Ranjith Ling NP Referrals: Ranjith Ling NP, AUDIT INTERN-C [Primary Care Provider, Family Practice] - 1-2 Weeks Activity Restrictions/Additional Instructions: Keep appointment for outpatient MRI. Print Language: Ethiopian Disposition Disposition: Home, Self Care Discharge Date/Time: 12/07/24 15:05 What to do if you have Problems For any increased pain, shortness of breath, bleeding, nausea or vomiting, chestpain, or any unexpected problems, contact your Primary Care Provider. Call [facility] ([phone]) or report tothe closest Emergency Room. Call 911 if necessary. 12/07/24 1525 Cosigner Signature (if applicable): CC: DAVID Ling ~ Signed [facility]10-06-2025 Discharge summary Author Crispin Subramanian [facility] Note Date/Time December 07, 2024 3: 05pm [facility] Medical Records Department [address] [place] [address] Emergency Department Summary 12/07/24 MR#: [id number] Acct: [id number] Name: ESTELLA CHAO Rep #:[id number] : 1955 68 From: Crispin Subramanian [...] in for her pain. She was seenat [facility]. Patient is scheduled for an [...] tightness or heaviness. She denies dyspnea or [place] exertion. Denies orthopnea or PND. She does report swelling of her ankles recently. Patient has no history of alcohol use or cirrhosis. Prior similar symptoms: Yes Recent Illness/Hospitalization: Yes (Seen by PCP approximately 2 weeks ago. Hercreatinine at that time was ely) [facility] Medical History Depression Emphysema lung COPD (chronic [...] PO QDAY FOR ENERGY 12/06/24 History mv-mn [id number]-srb-[id number] 1 tab PO DAILY SUPPLEMEN T 12/07/24 [...] (Auto) 63.7 Lymph % (Auto) 17.7 L [place] % (Auto) 15.3 H Eos % (Auto) [...] tablet,delayed release (DR/EC) 40 mg PO DAILY -in [id number]-mcl-nekc [Centrum ] 1 tab PO DAILY Primary Care Provider: Ranjith Ling NP Referrals: Ranjith Lnig NP, AUDIT INTERN-C [Primary Care Provider, Family Practice] - 1-2 Weeks Activity Restrictions/Additional Instructions: Keep appointment for outpatient MRI. Print Language: Ethiopian Disposition Disposition: Home, Self Care Discharge Date/Time: 12/07/24 15:05 What to do if you have Problems For any increased pain, shortness of breath, bleeding, nausea or vomiting, chestpain, or any unexpected problems, contact your Primary Care Provider. Call [facility] ([phone]) or report to the closest Emergency Room. Call 911 if necessary. 12/07/24 1525 <Electronically signed by Crispin Subramanian MD> Cosigner Signature (if applicable): CC: DAVID Ling ~ Signed [facility] Work Phone: 1(984) 906-455709-23-2025 Evaluation + Plan note Diagnostic Tests Pending * Gliadin Antibody 11/24/24 * HEMAL Panel 11/24/24 * Tissue Transglutaminase Ab (IGA) 11/24/24 * Helicobacter Pylori Antibody 11/24/24 * L-8-Wgwbmakcasn 11/24/24 * TENZIN by IFA Screen 11/24/24 [...] w/ contrast 07/07/24 * MRI Liver 11/24/24 [facility] 09-23-2025 Evaluation + Plan note Future Scheduled [...] w/ contrast 07/07/24 * MRI Liver 11/24/24 [facility] 06-23-2025 Telephone encounter Note* Telephone Encounter - Cammie Bay LPN - 08/24/2024 11:22 AM EDT Patient returned call and went over results, notes from express care provider with understanding. [facility]06-23-2025 Miscellaneous Notes* Telephone Encounter - aCmmie Bay LPN - 08/24/2024 11:22 AM EDT [...] with PCP Please advise [facility] Telephone encounter Note * Telephone Encounter - Keyona Adams MA - 08/24/2024 7:39 AM EDT Left message for patient to return call. Keyona Adams MA [facility]06-23-2025 Telephone encounter Note* Telephone Encounter - Sole Villa APRN.CNP - 08/24/2024 7:07 AM EDT Urine culture reveals mixed bacteria. This can occur during collection when skin contaminants are in the container. Recommend patient provide new specimen (order has been placed) Present to express care as nurse visit for a new urine sample Follow up with PCP Please advise [facility]06-21-2025 Instructions* Patient Instructions* To Alcaraz APRN.CNP [...] R10.9 - Increase fiber in diet - Terrell low residue diet - IBUPROFEN 400 MG [...] any other concerning symptoms documented [facility]-2025 NoteHNO ID: [id number] Author: TO ALCARAZ APRN.CNP Service: ? Author [...] if pain severe or uncontrollable To Alcaraz APRN.HOPPER FEEDER -I have reviewed and updated with the [...] The patient was discharged. OTC Medications were advised:[facility]06-21-2025 History of Present illness Narrative* To [...] OTC Medications were advised: documented in [facility]Do[facility]06-28-2024 Hospital Discharge instructions Patient Education 08/30/2023 [...] work areas and walkways clear and uncluttered. [id number] [employer]. [address] [place] [address], [place] [address]. All rights reserved. This information is not intended as a substitute for professional medical care. Always follow yourhealthcare professional's instructions. Follow Up Care 08/30/2023 13:35:25 With:KONG TRIANA Address: [facility] [place] [address]- When:2-4 days With:RANJITH LING APRN - HOPPER FEEDER Address: [address] [place] [address]- When:2-4 days [facility] [facility] 06[facility]24 Note Discharge Instructions Thank you for allowing [facility] to assist you with your healthcare needs. The following is importantdischarge information regarding your hospital visit. Diagnosis from Today's Visit Fall What to Do Next Instructions from Your Care Team No qualifying data available. Post Acute Orders No qualifying data available. You Need to Schedule the Following Appointments Follow Up with KONG TRIANA When:Within 2-4 days Where: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 [id number] [employer]. [address] [place] [address], [place] [address]. All rights reserved. This information is not intended as a substitute for professional medical care. Always follow yourhealthcare professional's instructions. Additional Information VACCINATE! IT SAVES LIVES! Members of the community who have not yet received the COVID-19 vaccine and would like to receive it can visit one of [facility] vaccine clinics. There are many vaccine clinic locations within the [facility]. For locations and available times, please visit www.[email or web address].gov/. It is important to note that some COVID mobile vaccine clinics are held outdoors and may be canceled in rainy or stormy conditions. To learn more about pediatric vaccinations (ages 5-11), we invite you to visit the [facility] webpage. [email or web address]/[email or web address] [email or web address] learn more about the COVID-19 vaccine, we invite you to visit the CDC website for a list of frequently asked questions. https://www.cdc.gov/coronavirus/2019-ncov/vaccines/faq.html [facility] Patient Portal Access Instructions: Stay connected with your healthcare team and access your personal medical information anytime with the [facility] Patient Portal. If you would like a full copy of your medical records please contact the [facility] Medical Records Department Saturday through Saturday between 8a.m. and 4:30p.m. Please follow the directions below to access the portal: 1.Access the email account you provided upon registration to the hospital.2.Look for an invitation email from [facility].3.Open the email and access the invitation link: Accept Invitation to [facility]4.Fill in the required viramontes to create your account. Sign into www.[employer] with your username and password that you [...] you will allow to register on the [facility] Patient Portal for access to your information. You can also access the [facility] Patient Portal on the benchee. Simply click on Health Records under [employer] and then click on the [facility] logo. [...] Call your local pharmacy or go to [email or web address] to find one close to you.3.Make use of household items: Use cat litter or old coffee grounds to dispose medications if other options arenot available. Mix your drugs with these household products, seal them in an airtight container andthrow it into the garbage. Call [facility]: [phone] to be sure your drugs can be [...] aware that I should contact my doctor. 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 Bonny Pena APRN.CNP [facility] HCoV 229E RNA TAB+non- probe Ql [...] MA Mammo Screening Bilateral w/ Yoshi 03/28/21 [facility] Evaluation + Plan note Future Appointments Appointment Date:07/11/2021 01:40:00 PM Scheduled Provider:RANJITH LING APRN, CNP Location:[facility] Appointment Type:PC OV Appointment Date:09/21/2021 10:30:00 AM Scheduled Provider: Location:[facility] Appointment Type:PC Nurse Lab Appointment Date:09/26/2021 01:40:00 PM Scheduled Provider:RANJITH LING APRN, CNP Location:[facility] Appointment Type:PC OV Follow Up Future [...] Chest 2 Views (PA & Lateral) 07/04/21 [facility] Crystal ISaluation + Plan note Future Appointments Appointment Date:10/22/2023 01:20:00 PM Scheduled Provider:RANJITH LING APRN, CNP Location:[facility] Appointment Type: Wellness Annual Future Scheduled [...] Low Dose Lung Cancer Screening (LDCT) 10/09/22 [facility] Evaluation + Plan note Future Appointments Appointment Date:11/26/2023 01:00:00 PM Scheduled Provider:RANJITH LING APRN, CNP Location:[facility] Appointment Type: Wellness Annual Future Scheduled Tests Laboratory* Complete Blood Count 03/21/23 * Albumin/Creatinine Ratio, Random Urine 03/21/23 * Vitamin D Level 03/21/23 * Complete Metabolic Panel 03/21/23 [facility] Evaluation + Plan note Future Appointments Appointment [...] w/ contrast 07/07/24 * MRV Abdomen 12/03/24 [facility] Evaluation note* Diagnosis Tobacco use disorder- Primary documented in this encounter [facility] note* Diagnosis UTI symptoms- Primary Other symptoms involving urinary system Acute left flank pain Abdominal pain, unspecified site [facility] Diagnosis UTI symptoms- Primary Other symptoms involving urinary system documented in this encounter [facility] noteNo assessment information availableWMercy [facility] Work Phone: Hospital course Narrative No data available for this section [facility] Hospital Discharge instructions No data available for this section [facility] Hospital Discharge instructionsAdditional Instructions Keep appointment for outpatient MRI.[facility] Work Phone: Hospital Discharge instructionsAmbulatory Orders* General Surgery Location: None [facility] Work Phone: Progress note No data available for this section [facility] Reason for referral (narrative)No reason for referral information availableWMercy Health [facility] Hospital Work Phone: Health Concerns Infection Onset [...] Do you have a Healthcare Power of Assistant District Attorney? No December 07, 2024 12:45pm Advance Directive Response Recorded Date/ Time Do you have a Healthcare Power of Assistant District Attorney? No December 07, 2024 11:45am Chief Complaint [...] Care Team (unrecognized sect ion and content) Equipment Services Associate Relationship Specialty Start Date End Date Ranjith Ling, HOPPER FEEDER [address] [place] [address] PCP - General Family Medicine 01/09/22 Equipment Services Associate Relationship Specialty Start Date End Date Ranjith Ling, HOPPER FEEDER [address] [facility] [place] [address] PCP - General Family Medicine 01/09/22 Equipment Services Associate Relationship Specialty Start Date End Date Ranjith Ling, HOPPER FEEDER [address] [facility] [place] [address] PCP - General Family Medicine 01/09/22 Equipment Services Associate Relationship Specialty Start Date End Date Ranjith Ling, PEDRO [address] [facility] [place] [address] PCP - General Family Medicine 01/09/22 Team Status: Active Member Role/Relationship Status Dates Ranjith Ling AUDIT INTERN, AUDIT INTERN-C Primary care physicia n Active Team Status: Inactive Member Role/Relationship Status Dates Ranjith Ling AUDIT INTERN, AUDIT INTERN-C Primary care physician Active Start: November 17, 2024 End: November 17, 2024 Dr. Jeronimo Perez MD Attending physician Active Start: November 17, 2024 End: November 17, 2024 Dr. Jeronimo Perez MD Referring Provider Active Start: November 17, 2024 End: November 17, 2024 Team Status: Active Member Role/Relationship Status Dates Ranjith Ling AUDIT INTERN, AUDIT INTERN-C Primary care physician Active Start: November 26, 2024 Allegra Hylton Attending physician Active Start: November 26, 2024 Team Status: Inactive Member Role/Relationship Status Dates Ranjith Ling AUDIT INTERN, AUDIT INTERN-C Primary care physician Active Start: December End: December 07, 2024 Dr. Crispin Subramanian MD Emergency Department Physician Active Start: December 07, 2024 End: December 07, 2024 Team Status: Inactive Member Role/Relationship Status Dates Ranjith Ling AUDIT INTERN, AUDIT INTERN-C Primary care physician Active Start: December End: December 07, 2024 Dr. Crispin Subramanian MD Attending physician Active St art: December 07, 2024 End: December 07, 2024 Dr. Crispin Subramanian MD Emergency Department Physician Active Start: December 07, 2024 End: December 07, 2024 Team Status: Inactive Member Role/Relationship Status Dates Ranjith Ling AUDIT INTERN, AUDIT INTERN-C Primary care physician Active Start: December 222024 End: December 22, 2024 Ranjith Ling AUDIT INTERN, AUDIT INTERN-C Referring Provider Active Start: December 22, 2024 End: December 22, 2024 Dr. Ten Nogueira MD Attending physician Active Start: December 22, 2024 End: December 22, 2024 Team Status: Inactive Member Role/Relationship Status Dates Ranjith Ling AUDIT INTERN, AUDIT INTERN-C Primary care physician Active Start: December 292024 End: December 29, 2024 Ranjith Ling AUDIT INTERN, AUDIT INTERN-C Referring Provider Active Start: December 29, 2024 End: December 29, 2024 Dr. Cassy Andrea MD Attending physician Active Start: December 29, 2024 End: December 29, 2024 Team Status: Active Member Role/Relationship Status Dates Ranjith Ling NP, AUDIT INTERN-C Primary care physician Active Start: December 292024 Dr. Ten Nogueira MD Attending physician Active Start: December 29, 2024 Dr. Ten Nogueira MD Referring Provider Active Start: December 29, 2024 Team Status: Active Member Role/Relationship Status Dates Ranjith Ling NP, AUDIT INTERN-C Primary care physician Active Start: December 292024 Dr. Cassy Andrea MD Attending physician Active Start: December 29, 2024 Dr. Cassy Andrea MD Referring Provider Active Start: December 29, 2024 Team Status: Active Member Role/Relationship Status Dates Ranjith Ling AUDIT INTERN, AUDIT INTERN-C Primary care physician Active Start: January 062024 [...] or prosecute any alcohol or drug abuse patient.Doctors HospitalIn the event this information is protected by the Federal Confidentiality of Alcohol and Drug Abuse Patient Records regulations: The Federal rules restrict any use of the information to criminally investigate or prosecute any alcohol or drug abuse patient.Doctors HospitalIn the event this information is protected by the Federal Confidentiality of Alcohol and Drug Abuse Patient Records regulations: The Federal rules restrict any use of the information to criminally investigate or prosecute any alcohol or drug abuse patient.Doctors HospitalIn the event this information is protected by the Federal Confidentiality of Alcohol and Drug Abuse Patient Records regulations: The Federal rules restrict any use of the information to criminally investigate or prosecute any alcohol or drug abuse patient.[facility] Reason for Visit (unrecogniz ed section and content) Reason Comments Results Reason Comments Abdominal Pain left side abdominal back migrating into mid back x 1 week Reason Onset Date Comments Results 08/24/2024 INFORMATION SOURCE (unrecogn ized section and content) DATE CREATED AUTHOR 09/03/2023 [facility] ([place]) DATE CREATED AUTHOR AUTHOR'S ORGANIZ ATION 08/24/2024 [facility] DATE CREATED AUTHOR AUTHOR'S ORGANIZ ATION 08/29/2024 [facility] [facility] DATE CREATED AUTHOR AUTHOR'S ORGANIZ ATION 12/21/2024 [facility] DATE CREATED AUTHOR AUTHOR'S ORGANIZ ATION 01/13/2025 [facility] Goals (unrecognized section and content) Goals may [...] BE BASED ON THE PRIMARY CLINICAL RECORDS. [employer] provides no warranty or guarantee of the accuracy or completeness of information in this document.
[2025-02-05 17:01] VITALS: BP 107/58; PULSE 96; RESP 17; RESP 19; TEMP 37.1; O2SAT 92; BMI 18.9
--- NOTE | 2025-02-05 20:29 | NURSING ---
Patient arrived on unit from PCU with generalized rash/irritation. Patient c/o itching to affected areas. Consulted Dr. Boyd via secure text message. New order for hydrocortisone topical cream TID PRN to affected areas. Order confirmed via secure-text confirmation.
--- NOTE | 2025-02-05 20:39 | HP.PCM_ITS ---
HPI - General General Date of Admission: 02/05/25 Date of Service: 02/05/25 Chief Complaint: Here for rehabilitation. HPI Narrative ESTELLA MIRELES, is a 69 Female who presents with followin01/24/2025 [facility] ED Fatigue. Unable to move legs, weak. Recent diagnosis of Mantle Cell Lymphoma, sees Dr. Nogueira, scheduled to start chemotherapy, port placed. 10 pound weight gain in 1 week, not active, took 1 hour to put socks on, unable to walk with walker, bedridden. BNP 2369, Lasix given for weight gain, lymphedema. 01/24/2025 Admit [facility]. PT/OT/CM for discharge planning. Lasix IV for lymphedema. 01/25/2025 Stop Lasix for anasarca 2/2 high risk for tumor lysis syndrome. Lactic acidosis 2/2 lymphedema. Plan chemotherapy inpatient for Mantle Cell Lymphoma. 01/25/2025 Echo Normal LV size. LVEF 65%. Stage 1 diastolic dysfunction. 01/26/2025 IV fluids to prepare for chemotherapy. Allopurinol 300mg daily to prevent tumor lysis syndrome. Hemoglobin 6.6, transfuse 1 unit PRBC. 01/27/2025 Bendamustine/Rituxan yesterday for Mantle Cell Lymphoma. IV fluids to prevent tumor lysis syndrome. Lasix 40mg IV x 1 dose for pulmonary edema. LDH 1066. Hemoglobin 7.8, Granix ordered for platelets 32, stop Lovenox. 01/28/2025 Completed 1st cycle chemotherapy, next cycle 03/01/2025. Hemoglobin 8.0, Platelets 42. Allopurinol, IV fluids for tumor lysis syndrome. 01/29/2025 IV fluids for elevated BUN. Phosphate binders for elevated phosphate of 5.1. WBC 3.8, Hemoglobin 8.7, Platelets 45. 01/30/2025 No acute events overnight. BUN improved to 35 with IV fluids. Phosphorous improved with phosphate binders. 01/31/2025 Abdominal pain, admission CT abdomen/pelvis showed mild splenomegaly, diffuse retroperitoneal lymphadenopathy, enlarged inguinal lymph node, ascites. Repeat CT abdomen/pelvis. Ceftriaxone IV for Enterobacter/E. Coli UTI. 02/01/2025 CT abdomen/pelvis showed questionable free air. Plan paracentesis for ascites. Plan thoracentesis for pleural effusion. 02/02/2025 PT/OT for SNF at discharge. 02/03/2025 WBC 19 on Granix, Hemoglobin 8.1. Thoracentesis removed 1590mL fluid. Paracentesis removed 2700mL fluid. 02/04/2025 PT/OT/CM for SNF. 02/05/2025 Frail, Chest X-ray bilateral pleural effusions. Stop Phosphate binders, phosphate normal. Ceftriaxone IV for urinary tract infection. 02/05/2025 Admit to TCU with debility, here for rehabilitation, strengthening, prior to discharge home alone. [facility] Medical History (Updated 02/05/25 @ 20:[address] Bernard Boyd MD) Wears glasses Cancer History of renal disease Heartburn Gastric reflux Former smoker History of edema Hypokalemia Encounter for education 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 Depression Emphysema lung COPD (chronic obstructive pulmonary disease) Postmenopausal IBS (irritable bowel syndrome) Positive colorectal cancer screening using Cologuard test Anemia Acute distention of stomach Abdominal pain Hypertension Vitamin D deficiency Splenomegaly Home Medications ?Medication ?Instructions ?Recorded ?Last Taken ?Type cholecalciferol (vitamin D3) 1,250 1,250 mcg PO QMONTH [facility] 11/26/24 01/19/25 History mcg (50,000 unit) capsule vitamin B complex 1 tab PO QDAY FOR ENERGY 01/19/25 History mv-mn [id number] 1 tab PO DAILY SUPPLEMEN T 12/07/24 01/19/25 History pantoprazole 40 mg tablet,delayed 40 mg PO DAILY STOMA CH 12/07/24 12/06/24 History release allopurinol 300 mg tablet 300 mg PO QDAY gout #7 tabs 01/14/25 Unknown Rx lidocaine-prilocaine 2.5 %-2.5 % 1 applic topical ONCE PRN port 01/14/25 Unknown Rx topical cream access 30 days #30 grams ondansetron 8 mg disintegrating 8 mg PO Q8H PRN nausea and 01/14/25 Unknown Rx tablet vomiting #30 tabs acetaminophen 325 mg tablet 650 mg (2 x 325 mg) PO Q6H PRN PRN 02/05/25 Unknown Rx Pain 1-10 Or Fever>100.7 #0 tabs furosemide 40 mg tablet (Lasix) 40 mg PO DAILY edema # 1 TAB 02/05/25 Unknown Rx melatonin 3 mg tablet 3 mg PO QHS PRN PRN Insomnia #0 02/05/25 Unknown Rx tabs potassium chloride 20 mEq 20 meq PO BIDCM supplement # 0 tabs 02/05/25 Unknown Rx tablet,extended release(part/cryst) Allergy/AdvReac Type Severity Reaction Status Date / Time moxifloxacin (From Avelox) Allergy Unknown unknown Verified 01/24/25 15:27 terbinafine Allergy Unknown rash Verified 01/24/25 15:27 Family History Father Alcohol abuse Mother Heart disease Depression Surgical History History of dental surgery Social History (Updated 02/05/25 @ 20:[address] Bernard Boyd MD) household members: none Smoking Status: Former smoker Tobacco: How many years used: 50 alcohol intake: never substance use type: does not use ROS Constitutional Constitutional: Reports weakness; Denies chills, fever(s) or weight gain ENT HEENT: Denies headache(s), nasal congestion or nasal discharge Cardiovascular Cardiovascular: Denies chest pain or palpitations Respiratory/Chest Respiratory/Chest: Denies cough, excessive phlegm production or shortness of breath with exertion Gastrointestinal Gastrointestinal: Reports abdominal pain; Denies nausea or vomiting Genitourinary Genitourinary: Denies dysuria Musculoskeletal Musculoskeletal: Denies joint pain or joint swelling Integumentary Integumentary: Denies rash or wounds Neurologic Neurologic: Denies focal weakness, numbness or tingling Psychiatric Psychiatric: Denies anxiety, auditory hallucinations, depression, homicidal ideation or suicidal ideation Vital Signs Vital Signs Vital Signs: 02/05/25 17:01 02/05/25 17:01 Temperature 98.7 F Temperature Source Temporal Pulse Rate 96 Pulse Rhythm Regular Pulse Strength Normal (2+) Respiratory Rate 19 H 17 Respiratory Effort Normal Non-Labored Respiratory Depth Normal Blood Pressure 107/58 L Blood Pressure Mean 74 Blood Pressure Source Monitor Pulse Ox 92 Oxygen Delivery Method Nasal Cannula Nasal Cannula Oxygen Flow Rate (L/min) 3 3 Weight Weight: 54.941 kg Body Mass Index (BMI) 18.9 Physical Exam Const alert General Appearance: cooperative HEENT normocephalic Eyes PERRL and EOMs intact bilaterally Neck supple, no JVD and no carotid bruits Chest Chest Narrative: Port. Resp normal respiratory effort, normal air movement and clear to auscultation bilaterally Cardio regular rate and regular rhythm GI normal to inspection, nondistended, normoactive bowel sounds, non-tender and non-distended Extremity normal capillary refill General Extremity: Negative for edema Skin no rashes or lesions noted General Skin Exam: no breakdown Psych affect normal Appearance: appropriate Assessment & Plan Assessment/Plan (1) Debility: (2) Anasarca: (3) Mantle cell lymphoma: QUALIFIERS: Lymphoma site: multiple regions Qualified Code(s): C83.18 - Mantle cell lymphoma, lymph nodes of multiple sites (4) Pneumoperitoneum: (5) UTI (urinary tract infection): (6) Pleural effusion: (7) Ascites: (8) Acidosis, lactic: (9) Pancytopenia: (10) Hyperphosphatemia: (11) Vitamin D deficiency: (12) GERD (gastroesophageal reflux disease): (13) Nausea: (14) Hypokalemia: (15) Tumor lysis syndrome: PLAN: Plan 69 year old female with below past medical history hospitalized for mantle cell lymphoma, complicated by anasarca, urinary tract infection, pleural effusion, ascites, pancytopenia, hyperphosphatemia, admitted to TCU with debility, here for rehabilitation, strengthening, prior to discharge home alone. * Debility - PT/OT. * Pain - Tylenol 1000mg q6 prn pain (1-10). * Bowel - senna/colace 1 tablet bid, Magnesium citrate 150mL po x 1 prn. * Adult immunization - Administer pneumonia vaccine, covid vaccine, flu vaccine as appropriate. * DVT prophylaxis - Hold, pancytopenia. * Tumor Lysis syndrome - Allopurinol 300mg daily. * Vitamin D deficiency - Vitamin D 1.25mg qmonth. * Anasarca - Furosemide 40mg daily. * Rash - HC topical tid prn. * Port - Emla cream 2.5gm topical x 1 prn. * Insomnia - Melatonin 3mg qhs prn. * Skin irritation - Calmoseptine topical bid. * Nutrition - MVI 1 tablet daily. * Tinea Corporis - Nystatin powder topical bid. * Nausea - Zofran odt 4mg q8h prn. * GERD - Pantoprazole 40mg daily. * Hypokalemia - KCL ER 20meq bidcm.
[2025-02-06 06:02] LABS: Hematocrit 26.4 % (37-47); Hemoglobin 8.1 g/dL (12.0-15.0); Immature Granulocytes Count 0.160 X10^3/uL (0.0-0.0); Mean Corp Hgb Conc 30.7 g/dL (32-36); Mean Corpuscular Volume 107.3 fL (81-99); Mean Platelet Vol. 11.0 fl (6.2-12.0); NRBC Flagged by Analyzer 0 % (0-5); POSITIVE DIFFERENTIAL YES; POSITIVE MORPHOLOGY YES; Platelet Count 152 K/mm3 (150-450); RBC Distribution Width CV 17.2 % (11.6-14.6); RBC Distribution Width SD 67.9 fl (35.1-43.9); Red Blood Count 2.46 M/mm3 (4.2-5.4); White Blood Count 11.2 K/mm3 (4.4-11.0)
[2025-02-06 06:10] LABS: Differential Indicated SCAN CRITERIA MET
[2025-02-06 06:41] LABS: Anisocytosis 1+; Differential Comment SCANNED
[2025-02-06 06:42] LABS: Anion Gap 4 (5-15); BUN 13 mg/dL (4-19); BUN/Creat Ratio 21.6 RATIO (10-20); Calcium,Total 8.1 mg/dL (7.6-11.0); Carbon Dioxide 34.0 mmol/L (21.0-32.0); Chloride 106 mmol/L (98-108); Estimated Creatinine Clearance 58.37 ml/min (50-250); Glucose 86 mg/dL (70-99); Potassium 3.6 mmol/L (3.3-5.1)
[2025-02-06 08:44] VITALS: BP 95/58; PULSE 97; RESP 18; TEMP 36.6; O2SAT 94
[2025-02-06] MEDS: Potassium Chloride Oral Tablet 20 MEQ PO ×2 (08:48→18:40)
[2025-02-06] MEDS: Hydrocortisone 2.5% Ointment 20 gm tube 1 APPLIC TOPICAL ×2 (08:50→19:54)
[2025-02-06 10:00] VITALS: RESP 17
[2025-02-06] MEDS: 0.9% Saline Lock 10 ML Syringe IV ×2 (11:34→21:40)
[2025-02-06] MEDS: Tuberculin,Purif.prot.deriv. 50 TU/ML Vial 0.1 ML ID (12:02)
--- NOTE | 2025-02-06 15:00 | PCM.PN.DRR ---
Documented by User: Josefina [email or web address] 02/06/25 15:24 TCU RX Drug Regimen Review Subjective/Objective Subjective/Objective Subjective: TCU Admission. 69 YOF presented to ER with fatigue. Hospitalized for mantle cell lymphoma, complicated by anasarca, urinary tract infection, pleural effusion, ascites, pancytopenia, hyperphosphatemia. Admitted to TCU with debility for strengthening and rehabilitation. Objective: Allergies moxifloxacin (From Avelox) Allergy (Unknown, Verified 01/24/25 15:27) unknown terbinafine Allergy (Unknown, Verified 01/24/25 15:27) rash Current Medications Generic Name Dose Route Start Last Admin Trade Name Freq PRN Reason Stop Dose Admin Acetaminophen 1,000 mg 02/05/25 20:58 Acetaminophen 500 Mg Tablet PO Q6H PRN PRN Pain Score 1-10 Allopurinol 300 mg 02/05/25 17:15 02/06/25 08:48 Allopurinol 300 Mg Tablet PO 300 mg DAILY AMIRAH Administration Calamine/Phenol 1 applic 02/05/25 22:00 02/06/25 08:49 Menthol/Lanolin/Calamine/Znox 113 Gm Tube TOPICAL 1 applic BID AMIRAH Administration Protocol Ergocalciferol 1.25 mg 02/18/25 10:00 Ergocalciferol 1.25 Mg (50, 000 Unit) Capsule PO QMONTH AMIRAH Furosemide 40 mg 02/06/25 10:00 02/06/25 08:48 Furosemide 40 Mg Tablet PO 40 mg DAILY AMIRAH Administration Protocol Hydrocortisone 1 applic 02/05/25 20:23 02/06/25 08:50 Hydrocortisone 2.5% Ointment 20 Gm Tube TOPICAL 1 applic TID PRN PRN Administration RASH/TOPICAL IRRITATION Protocol Lidocaine/Prilocaine 2.5 gm 02/05/25 17:05 Lidocaine/Prilocaine Hcl 5 Gm Tube TOPICAL X1 PRN IRRITATION Protocol Magnesium Citrate 150 ml 02/05/25 17:10 Magnesium Citrate 300 Ml PO X1 PRN Constipation Melatonin 3 mg 02/05/25 17:05 Melatonin 3 Mg Tablet PO QHS PRN PRN INSOMNIA Multivitamins 1 tablet 02/06/25 08:00 02/06/25 08:49 Multivitamins,Therapeutic Tablet PO 1 tablet BREAKFAST AMIRAH Administration Nystatin 1 applic 02/05/25 22:00 02/06/25 08:50 Nystatin Powder 15gm Bottle TOPICAL 1 applic BID AMIRAH Administration Protocol Ondansetron HCl 4 mg 02/05/25 17:31 02/06/25 11:33 Ondansetron Odt 4 Mg Tablet PO 4 mg Q8H PRN Administration NAUSEA/VOMITING Pantoprazole Sodium 40 mg 02/06/25 10:00 02/06/25 08:48 Pantoprazole Sodium 40 Mg Tablet PO 40 mg DAILY AMIRAH Administration Potassium Chloride 20 meq 02/06/25 08:00 02/06/25 08:48 Potassium Chloride Oral Tablet 20 Meq PO 20 meq BIDCM AMIRAH Administration Senna/Docusate Sodium 1 tablet 02/05/25 22:00 02/06/25 08:50 Senna/Docusate Sodium 1 Tablet PO Not Given BID AMIRAH Sodium Chloride 10 - 40 ml 02/05/25 17:22 02/06/25 11:34 0.9% Saline Lock 10 Ml Syringe IV 10 ml UD PRN Administration SALINE FLUSH Sodium Chloride 10 - 40 ml 02/05/25 19:30 0.9% Saline Lock 10 Ml Syringe IV UD PRN Port-a-Cath (VAD)/R Port Flush Sodium Chloride 10 - 40 ml 02/05/25 19:30 0.9 % Nacl (Sterile) Posiflush 10 Ml IV UD PRN Port access or dressing change Sodium Chloride 10 - 40 ml 02/05/25 19:30 0.9% Saline Lock 10 Ml Syringe IV UD PRN SALINE FLUSH Tuberculin PPD 0.1 ml 02/13/25 10:00 Tuberculin,Purif.Prot.Deriv. 50 Tu/Ml Vial ID 02/13/25 10:01 X1 ONE Problem List Tumor lysis syndrome (Acute) Nausea (Acute) GERD (gastroesophageal reflux disease) (Acute) Vitamin D deficiency (Acute) Hyperphosphatemia (Acute) Ascites (Acute) Pleural effusion (Acute) Debility (Acute) Pneumoperitoneum (Acute) Anasarca (Acute) Acidosis, lactic (Acute) Pancytopenia (Acute) UTI (urinary tract infection) (Acute) Hypokalemia (Acute) Mantle cell lymphoma (Chronic) Vital Signs Temp Pulse Resp BP Pulse Ox O2 Del Method O2 Flow Rate 97.9 F 97 17 95/58 L 94 Nasal Cannula 2 02/06/25 08:44 02/06/25 08:44 02/06/25 10:00 02/06/25 08:44 02/06/25 08:44 02/06/25 10:00 02/06/25 12:31 Oxygen Flow Rate (L/min) 2 Oxygen Delivery Method Nasal Cannula Weight: 54.941 kg Body Mass Index (BMI) 18.9 Sodium 144 mmol/L (133-145) 02/06/25 05:24 Potassium 3.6 mmol/L (3.3-5.1) 02/06/25 05:24 Chloride 106 mmol/L (98-108) 02/06/25 05:24 Carbon Dioxide 34.0 mmol/L (21.0-32.0) H 02/06/25 05:24 Anion Gap 4 (5-15) L 02/06/25 05:24 BUN 13 mg/dL (4-19) 02/06/25 05:24 Creatinine 0.58 mg/dL (0.70-1.20) L 02/06/25 05:24 Est GFR (MDRD) Non-Af 99 (>60) 02/06/25 05:24 BUN/Creatinine Ratio 21.6 RATIO (10-20) H 02/06/25 05:24 Glucose 86 mg/dL (70-99) 02/06/25 05:24 Assessment/Plan: 1. Pain: acetaminophen 1000mg PO Q6H PRN pain 1-10. Resident has not used any prn doses at this time. Monitor pain scores before/after prn administration for response, PRN pain medication usage, symptoms of pain/resident distress and ability to participate in therapy. 2. Bowel: senna/docusate 2T PO BID and magnesium citrate 150mL PO x1 PRN constipation. Resident has not used any prn doses at this time. Last document bowel movement: 02/05/25. Monitor for usage of prn medications, abdominal pain, frequency of bowel movements, diarrhea. Recommend holding bowel regimen if resident develops diarrhea. 3. Tumor lysis syndrome: allopurinol 300mg PO daily. Please continue to monitor uric acid (last 5mg/dL 01/28/25) and renal function. 4. Anasarca: furosemide 40mg PO daily. Please continue to monitor for S/S of swelling and potassium (last 3.6mmol/L). 5. Hypokalemia: potassium chloride 20meQ PO BIDCM. Please continue to monitor potassium (last 3.6mmol/L). 6. GERD: pantoprazole 40mg PO daily. Monitor for diarrhea (consider possibility of C. diff if develops). Consider serum magnesium level and B12 level with long-term use if indicated. If clinically appropriate, consider dose reduction/weaning of medication due to [facility] risks of C. diff and fractures ([place]). 7. Insomnia: melatonin 3mg PO QHS PRN insomnia. Resident has not used any prn doses at this time. Please continue to monitor for PRN usage and insomnia. 8. Nausea: ondansetron ODT 4mg PO Q8H PRN nausea/vomiting. Resident has used 1 PRN dose. Please continue to monitor for PRN usage, nausea/vomiting and drowsiness. 9. Vitamin D deficiency: ergocalciferol 1.25mg PO monthly. Please continue to monitor. 10. Rash: hydrocortisone 2.5%ointment TID PRN rash/topical irritation. Resident has had 1 dose so far. Please continue to monitor for rash, irritation and PRN usage. 11. Port: Emla cream 2.5gm topical x1 PRN port irritation. Resident has not used any prn doses at this time. Please continue to monitor. 12. Nutrition: multivitamin 1T PO daily. Please continue to monitor. 13. Skin irritation/tinea corporis: Calmoseptine topical BID and nystatin powder topical BID. Monitor for skin breakdown, signs of skin irritation/erythema and infection. Assessment/Plan for indications treated with psychotropic medications: Resident is not prescribed scheduled or prn psychotropic medications at the time of this drug regimen review. Medical chart and medication regimen reviewed. The following medication irregularities or issues were identified: No recommendations for resident at this time. Date Date of Note: 02/06/25 Documented by User: Dr. Bernard Boyd MD 02/06/25 19:02 TCU RX Drug Regimen Review Provider Comments Provider responsibility Provider Comments to Recommendations by Pharmacy Agree
[2025-02-07] MEDS: Hydrocortisone 2.5% Ointment 20 gm tube 1 APPLIC TOPICAL (01:21)
[2025-02-07 01:28] VITALS: PULSE 75; O2SAT 96
--- NOTE | 2025-02-07 02:08 | NURSING ---
Written communication left for Dr. Boyd related to pt c/o itching despite PRN Hydrocortisone cream application and pt request for something else to help me stop itching. Pt reports inability to sleep at night due to itching waking me up.
--- NOTE | 2025-02-07 02:19 | NURSING ---
Addendum entered by Raheel Bryant 02/07/25 02:24: Pt refused dressing change to R chest port due to sutures still in place and the need for suture removal despite education. Pt states I don't want you to change it if they're just going to have to change it again when they take the stitches out. Original Note: Additional written communication left for Dr. Boyd related to discharge instructions per Dr. Andrea for pt to follow up for permanent suture removal from R chest port done on 01/21/25.
[2025-02-07 08:57] VITALS: BP 108/62; PULSE 89; RESP 18; TEMP 36.6; O2SAT 96
[2025-02-07] MEDS: Potassium Chloride Oral Tablet 20 MEQ PO ×2 (09:01→17:11)
[2025-02-07 15:33] VITALS: BP 99/60; PULSE 88; RESP 14; TEMP 37.1; O2SAT 93
--- NOTE | 2025-02-07 17:33 | NURSING ---
Pt is having complaints of itching on back and chest. Hydrocortisone cream ineffective. New order for kenalog cream and Hydroxyzine 25 mg every 6 hours PRN.
[2025-02-07] MEDS: 0.9% Saline Lock 10 ML Syringe IV (22:18)
[2025-02-08] MEDS: Magnesium Citrate 300 ML 150 ML PO (05:20)
[2025-02-08 05:23] VITALS: PULSE 101; O2SAT 95
[2025-02-08 05:42] LABS: Hematocrit 26.9 % (37-47); Hemoglobin 8.2 g/dL (12.0-15.0); Immature Granulocytes Count 0.170 X10^3/uL (0.0-0.0); Mean Corp Hgb Conc 30.5 g/dL (32-36); Mean Corpuscular Volume 107.2 fL (81-99); Mean Platelet Vol. 10.8 fl (6.2-12.0); NRBC Flagged by Analyzer 0 % (0-5); POSITIVE DIFFERENTIAL YES; POSITIVE MORPHOLOGY YES; Platelet Count 142 K/mm3 (150-450); RBC Distribution Width CV 17.2 % (11.6-14.6); RBC Distribution Width SD 67.7 fl (35.1-43.9); Red Blood Count 2.51 M/mm3 (4.2-5.4); White Blood Count 4.2 K/mm3 (4.4-11.0)
[2025-02-08 05:47] LABS: Differential Indicated SCAN CRITERIA MET
--- NOTE | 2025-02-08 06:28 | NURSING ---
Written communication left for Dr. Boyd regarding 3+ pitting edema to pt's bilateral feet and the need for clarification of daily weight orders.
[2025-02-08 06:37] LABS: Anisocytosis RARE; Differential Comment SCANNED; Reactive Lymphocyte 1+
[2025-02-08] MEDS: Potassium Chloride Oral Tablet 20 MEQ PO ×2 (08:52→18:55)
[2025-02-08 09:00] VITALS: BP 101/57; PULSE 88; RESP 16; TEMP 37; O2SAT 94
--- NOTE | 2025-02-08 12:26 | NURSING ---
Offered covid vaccine, VIS provided. Resident declines.
[2025-02-08 13:31] VITALS: O2SAT 95
--- NOTE | 2025-02-08 16:06 | CASEMGMT ---
Social Work SW met with patient to complete initial assessment. Introduced self and role. Verified contacts. Discussed code status and pt to consider changing to DNR, but wants to discuss with dtr first. Pt will remain as a full code until pt has notified staff for the change. SW educated to [employer] CM insurance with [employer]D 02/18 and continued stay is not guaranteed with each review; advanced notice is not required. SW will continue to follow for DC planning and support. Mari Currie HEAT TREAT INSPECTOR ALUMNI SECRETARY
--- NOTE | 2025-02-08 16:22 | NURSING ---
Sutures removed to right chest port and deaccessed DSD applied. Pt tolerated well.
[2025-02-08] MEDS: 0.9% Saline Lock 10 ML Syringe IV (20:42)
[2025-02-09 06:00] VITALS: BMI 19.1
[2025-02-09 08:48] VITALS: O2SAT 95
[2025-02-09] MEDS: Potassium Chloride Oral Tablet 20 MEQ PO ×2 (09:42→17:49)
[2025-02-09 09:50] VITALS: BP 96/58; PULSE 84; RESP 17; TEMP 36.4; O2SAT 92
[2025-02-09 13:00] VITALS: O2SAT 95
[2025-02-09] MEDS: 0.9% Saline Lock 10 ML Syringe IV ×2 (13:13→21:01)
[2025-02-10 04:03] VITALS: BMI 19.1
[2025-02-10 08:28] VITALS: BP 106/56; PULSE 81; TEMP 37; O2SAT 97
[2025-02-10] MEDS: Potassium Chloride Oral Tablet 20 MEQ PO ×2 (08:32→17:02)
--- NOTE | 2025-02-10 09:43 | CASEMGMT ---
Social Work IDT met with patient and dtr for care plan meeting. Discussed patient's progress in PT/OT/SN/RDN. Educated to [employer] CM insurance with [employer] 02/18 and continued stay or advanced notice is not guaranteed. Provided pt/family with written communication of insurance process and copay coverage during stay. Pt has new O2 currently. 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 SW inquired about palliative care. Pt/dtr acknowledged they met with the palliative UX INFORMATION ARCHITECT on acute. SW re-educated to palliative and the benefits to pt. Both agreeable to referral. SW provided list of options and once agency is selected, SW to place referral and coordinate at DC. Both expressed understanding. Pt also requested assistance with FMLA and short term disability paperwork. SW to review and assist. Pt appreciative. SW will continue to follow for DC planning. Mari Currie STRAIGHTEDGE MACHINE OPERATOR HELPER PROSTHETIST
--- NOTE | 2025-02-10 11:47 | NURSING ---
Spa Manager/Esthetician Note; Activity Asset: Jt Gutiérrez is independent in her choice of daily activities. She will attend group activities, family visits, watches tv. With her diagnoses she prefers to spend most of her time resting. She welcomes the therapy dog and airline captain when avaliable. Staff will remind her of weekly activities and respect her right to say no.
--- NOTE | 2025-02-10 14:50 | WOUNDNOTE ---
wound photo: right labia/bilateral groin
--- NOTE | 2025-02-10 14:51 | WOUNDNOTE ---
Was asked by nursing to assess the ulcered areas to the right labia. pt states the area has been tender for a while. denies ever having sores in this location before. Pt states she was using a purewick when she was first admitted. this does not appear to be caused from that. there are 4 distinct ulcered areas noted. very painful to touch. pt states it hurts to wipe. I have to just dab at it. pt does have some peeling to bilateral groin as well. this nurse asked patient if she had any radiation to this area and patient did not believe so. pt does have calmoseptine ordered, but pt is unsure it is really doing much. nursing to discuss with Dr Boyd.
[2025-02-10 16:57] VITALS: O2SAT 96
--- NOTE | 2025-02-10 21:03 | NURSING ---
Patient requesting PRN Vistaril d/t itching. Medication discontinued today d/t potential interaction with new order for diflucan. Consulted Dr. Boyd via secure-text. New order for Loratadine 10mg Daily, first dose now. Secure-text read back and verified.
[2025-02-10] MEDS: 0.9% Saline Lock 10 ML Syringe IV (21:39)
[2025-02-11 04:22] VITALS: BMI 19.0
[2025-02-11 08:53] VITALS: BP 106/60; PULSE 69; RESP 16; TEMP 37; O2SAT 97
[2025-02-11] MEDS: Potassium Chloride Oral Tablet 20 MEQ PO ×2 (08:55→18:19)
--- NOTE | 2025-02-11 10:13 | NURSING ---
mepilex changed to lower back, no open areas or redness but does have 3 bony areas.
--- NOTE | 2025-02-11 10:59 | CASEMGMT ---
Social Work SW spoke with pt to assist with FMLA and short term disability ([employer]) paperwork. Pt requested this worker contact her HR Dept for follow up. SW agreed. SW completed BIMS () and PHQ-2 () for MDS assessment. - FERDINAND spoke with HR Blanquita, and pt has FMLA paperwork completed with return to work date 03/19/2025 and if pt needed an extension, emailed this worker paperwork to complete and return. Blanquita provided SW with [employer] and spoke with [employer]. [employer] also faxed paperwork to complete if an extension was needed. Pt has a maximum of 182 days and today is day 49. - FERDINAND provided update to pt. to complete paperwork, as it is unlikely pt will be able to return to work on 03/19/25 as anticipated. Pt agreed and appreciative. Mari Currie ORTHODONTIST VICE PRESIDENT REFRACTORY TECHNICIAN
[2025-02-11] MEDS: 0.9% Saline Lock 10 ML Syringe IV ×2 (12:10→21:39)
[2025-02-11 21:40] VITALS: PULSE 105; RESP 16; O2SAT 93
[2025-02-12 02:43] VITALS: PULSE 84; RESP 16; O2SAT 93
[2025-02-12 06:00] VITALS: BMI 18.4
[2025-02-12 06:00] LABS: Hematocrit 23.2 % (37-47); Hemoglobin 7.3 g/dL (12.0-15.0); Immature Granulocytes Count 0.030 X10^3/uL (0.0-0.0); Mean Corp Hgb Conc 31.5 g/dL (32-36); Mean Corpuscular Volume 104.0 fL (81-99); Mean Platelet Vol. 10.3 fl (6.2-12.0); NRBC Flagged by Analyzer 0 % (0-5); POSITIVE COUNT YES; POSITIVE DIFFERENTIAL YES; POSITIVE MORPHOLOGY YES; Platelet Count 97 K/mm3 (150-450); RBC Distribution Width CV 17.2 % (11.6-14.6); RBC Distribution Width SD 65.4 fl (35.1-43.9); Red Blood Count 2.23 M/mm3 (4.2-5.4); White Blood Count 3.2 K/mm3 (4.4-11.0)
[2025-02-12 06:32] LABS: Anion Gap 6 (5-15); BUN 21 mg/dL (4-19); BUN/Creat Ratio 29.8 RATIO (10-20); Calcium,Total 8.6 mg/dL (7.6-11.0); Carbon Dioxide 29.9 mmol/L (21.0-32.0); Chloride 108 mmol/L (98-108); Estimated Creatinine Clearance 56.63 ml/min (50-250); Glucose 85 mg/dL (70-99); Potassium 4.0 mmol/L (3.3-5.1)
[2025-02-12 07:08] LABS: Differential Indicated SCAN CRITERIA MET
[2025-02-12 07:34] LABS: Anisocytosis 1+
[2025-02-12] MEDS: Potassium Chloride Oral Tablet 20 MEQ PO ×2 (08:30→16:41)
[2025-02-12 08:34] VITALS: BP 111/65; PULSE 86; RESP 16; TEMP 36.9; O2SAT 96
--- NOTE | 2025-02-12 08:42 | NURSING ---
Activity Coordinate Note; MDS for 02/12/2025 Complete
[2025-02-12] MEDS: 0.9% Saline Lock 10 ML Syringe IV ×2 (13:11→22:53)
--- NOTE | 2025-02-12 15:08 | PCM.OPRPT ---
Multi Select Codes Radiology Radiology US Procedures: 11588 Paracentesis Operative Report (Standard) Operative Information Date of Procedure: 02/12/25 Pre-Operative Diagnosis: Ascites Post-Operative Diagnosis: Ascites Surgery/Procedure Performed: Ultrasound-guided paracentesis automotive lot attendant: No Type of Anesthesia: Local Procedure Start Time: 14:48 Procedure Stop Time: 15:03 Select all DRAINS/GRAFTS/IMPLANTS that apply: None Estimated Blood Loss: 0 Specimen collected: No Description of surgery: PROCEDURE: Ultrasound guided paracentesis ORDERING PROVIDER: Dr. Boyd INDICATION: Female, 69 years old. Ascites. PROVIDER: PATTI Bose TECHNIQUE: The risks, benefits, and alternatives to the procedure were explained to the patient. The specific risks of bleeding, infection, and damage to bowel were detailed and accepted. She is not on any blood thinning medications. Witnessed informed consent was obtained. The abdomen was ultrasonographically surveyed. An appropriate pocket of fluid was identified in the left lower quadrant of the abdomen. The skin was prepped with chlorhexidine and sterile field established. 2% lidocaine was used for local anesthetic. Using ultrasound guidance, the peritoneal cavity was accessed with a 5-Omani paracentesis needle/catheter system. The trocar was removed. A total of 2000 ml of clear red-tinged colored fluid was removed from the peritoneal cavity. The catheter was removed and a sterile dressing was applied. The procedure was well tolerated without any immediate complications. The patient was transported back to [facility]. IMPRESSION: Successful ultrasound guided paracentesis with left lower quadrant access site. Surgical Findings: None Complications Complications: No
[2025-02-13 06:00] VITALS: BMI 17.0
[2025-02-13 08:29] VITALS: BP 115/61; PULSE 102; RESP 17; TEMP 37; O2SAT 94
[2025-02-13] MEDS: Potassium Chloride Oral Tablet 20 MEQ PO ×2 (08:33→16:44)
[2025-02-13] MEDS: Tuberculin,Purif.prot.deriv. 50 TU/ML Vial 0.1 ML ID (12:10)
[2025-02-14 06:00] VITALS: BMI 16.9
[2025-02-14 09:29] VITALS: BP 99/53; PULSE 79; RESP 17; TEMP 37.2; O2SAT 96
[2025-02-14] MEDS: Potassium Chloride Oral Tablet 20 MEQ PO ×2 (09:32→16:39)
[2025-02-14] MEDS: 0.9% Saline Lock 10 ML Syringe IV (16:41)
[2025-02-15] VITALS (9 sets, daily range): BP systolic 89–125; BP diastolic 55–80; PULSE 70–88; RESP 16–94; TEMP 36.6–37.2; O2SAT 93–99; BMI 16.4
[2025-02-15] MEDS: Potassium Chloride Oral Tablet 20 MEQ PO ×2 (08:09→16:19)
[2025-02-15] MEDS: 0.9 % NaCl (Sterile) Posiflush 10 mL IV (10:47)
[2025-02-15] MEDS: 0.9% Saline Lock 10 ML Syringe IV (13:12)
[2025-02-16 04:30] VITALS: BMI 16.5
[2025-02-16] MEDS: Potassium Chloride Oral Tablet 20 MEQ PO ×2 (09:38→16:44)
--- NOTE | 2025-02-16 13:30 | MDS.RN ---
Information for the MDS was obtained from review of the clinical record, interview of resident, staff, and direct observation of resident?s care.
[2025-02-16] MEDS: 0.9% Saline Lock 10 ML Syringe IV (13:55)
[2025-02-17 09:20] VITALS: BP 118/71; PULSE 91; RESP 16; TEMP 36.6; O2SAT 96
[2025-02-17] MEDS: Potassium Chloride Oral Tablet 20 MEQ PO ×2 (09:25→17:39)
[2025-02-17 09:27] VITALS: O2SAT 94
[2025-02-17 09:30] VITALS: BMI 16.2
[2025-02-17 16:00] VITALS: BP 135/77; PULSE 89; RESP 16; TEMP 36.5; O2SAT 96
[2025-02-17] MEDS: 0.9% Saline Lock 10 ML Syringe IV (22:48)
[2025-02-18 05:56] VITALS: BMI 15.9
[2025-02-18 07:41] VITALS: O2SAT 91
[2025-02-18 08:38] VITALS: BP 97/59; PULSE 74; RESP 17; TEMP 37; O2SAT 95
[2025-02-18] MEDS: Potassium Chloride Oral Tablet 20 MEQ PO ×2 (08:42→16:37)
[2025-02-18] MEDS: Ergocalciferol 1.25 MG (50, 000 UNIT) Capsule PO (08:43)
[2025-02-18] MEDS: 0.9% Saline Lock 10 ML Syringe IV (08:44)
--- NOTE | 2025-02-18 16:15 | CASEMGMT ---
Social Work SW spoke with pt at bedside. Informed this worker has not received outcome from pt's insurance update yet. To plan ahead, SW provided list of skilled HHC agencies within geographical area, INN with insurance, that include quality and resource data via CarePort guide. Pt to review and notify this worker of preferences. SW will continue to follow. Mari Currie MSW PAYROLL BOOKKEEPER
[2025-02-19] MEDS: 0.9% Saline Lock 10 ML Syringe IV ×2 (05:47→09:12)
[2025-02-19 06:00] VITALS: BMI 15.4
[2025-02-19 06:03] LABS: Hematocrit 29.2 % (37-47); Hemoglobin 9.2 g/dL (12.0-15.0); Immature Granulocytes Count 0.020 X10^3/uL (0.0-0.0); Mean Corp Hgb Conc 31.5 g/dL (32-36); Mean Corpuscular Volume 100.7 fL (81-99); Mean Platelet Vol. 10.1 fl (6.2-12.0); NRBC Flagged by Analyzer 0 % (0-5); POSITIVE COUNT YES; POSITIVE DIFFERENTIAL YES; POSITIVE MORPHOLOGY YES; Platelet Count 62 K/mm3 (150-450); RBC Distribution Width CV 18.9 % (11.6-14.6); RBC Distribution Width SD 69.9 fl (35.1-43.9); Red Blood Count 2.90 M/mm3 (4.2-5.4); White Blood Count 2.6 K/mm3 (4.4-11.0)
[2025-02-19 06:21] LABS: Anion Gap 6 (5-15); BUN 21 mg/dL (4-19); BUN/Creat Ratio 31.6 RATIO (10-20); Calcium,Total 7.8 mg/dL (7.6-11.0); Carbon Dioxide 24.0 mmol/L (21.0-32.0); Chloride 112 mmol/L (98-108); Estimated Creatinine Clearance 47.39 ml/min (50-250); Glucose 95 mg/dL (70-99); Potassium 4.2 mmol/L (3.3-5.1)
[2025-02-19 06:46] LABS: Differential Indicated SCAN CRITERIA MET
[2025-02-19 07:07] LABS: Anisocytosis 1+; Polychromasia 1+
[2025-02-19 09:07] VITALS: BP 106/64; PULSE 82; RESP 17; TEMP 37.3; O2SAT 97
[2025-02-19] MEDS: Potassium Chloride Oral Tablet 20 MEQ PO ×2 (09:10→16:19)
[2025-02-20 05:39] VITALS: BMI 15.5
--- NOTE | 2025-02-20 05:55 | NURSING ---
Patient expresses concern with continued weight loss, reports eating great and I eat lots of snack from my family too. Patient reports normal weight around 115 pounds, admission weight 121.6 Confidential email sent to social media executive requesting further assessment, written communication left for Dr. Boyd. Dx: mantle cell lymphoma
[2025-02-20] MEDS: Potassium Chloride Oral Tablet 20 MEQ PO ×2 (09:32→17:58)
[2025-02-20] MEDS: 0.9% Saline Lock 10 ML Syringe IV ×2 (14:54→20:44)
[2025-02-20 16:00] VITALS: BP 105/62; PULSE 78; RESP 17; TEMP 37.3; O2SAT 97
[2025-02-21 05:44] VITALS: BMI 15.5
[2025-02-21 08:32] VITALS: BP 100/55; PULSE 77; RESP 16; TEMP 36.8; O2SAT 96
[2025-02-21] MEDS: Potassium Chloride Oral Tablet 20 MEQ PO ×2 (08:34→16:00)
[2025-02-21 20:00] VITALS: PULSE 86; O2SAT 94
--- NOTE | 2025-02-21 20:02 | NURSING ---
Dr. Boyd updated on low daily weight via phone call, new order for Ensure plus high calorie 120ml TID with meals, order verified by read back and acknowledged correct.
[2025-02-21] MEDS: 0.9% Saline Lock 10 ML Syringe IV (20:45)
[2025-02-22 05:02] VITALS: BMI 15.5
[2025-02-22 05:52] VITALS: PULSE 80; O2SAT 95
[2025-02-22 08:18] VITALS: BP 102/61; PULSE 85; RESP 15; TEMP 36.9; O2SAT 96
[2025-02-22] MEDS: Potassium Chloride Oral Tablet 20 MEQ PO ×2 (08:23→17:18)
[2025-02-22] MEDS: 0.9% Saline Lock 10 ML Syringe IV ×2 (08:28→22:34)
--- NOTE | 2025-02-22 11:17 | NURSING ---
pt refused ensure with med pass this AM, pt getting ensure on meal trays and states she drinks those. spoke with Imelda, Police Captain and ok to dc med pass Ensure.
--- NOTE | 2025-02-22 14:03 | CASEMGMT ---
Addendum entered by Mari Currie 02/23/25 09:29: [facility] accepting [facility]. They can provide PT/OT/SN and recommending [facility]AD referral for aide/SW assistance. SW accepted and made Care Coordination referral. Updated pt. Addendum entered by Mari Currie 02/22/25 16:06: [facility] does not accept insurance (even though insurance website says it is INN) - SW spoke with pt about denials. SW offered to refer to the additional C agencies from the list of INN providers on insurance website. Pt agreed. SW to update once there is an accepting provider. SW sent referrals via CarePort to : [facility], [facility], [facility]. Addendum entered by Mari Currie 02/22/25 15:27: [facility] cannot accept insurance. Addendum entered by Mari Currie 02/22/25 15:14: [facility] does not accept pt's insurance. SW sent referral to [facility] and [facility] via CarePort. Original Note: Social Work Insurance issued LCD 02/22, [place] 02/23 SW spoke with pt to inform of DC date. Pt agreeable. SW inquired about [facility] agency preference. Pt provided 3 choices - [facility], [facility], [facility]. Pt expressed some apprehension with DC home alone. SW to coordinate PT/OT/SN/URIARTE/SW at [place] and provided medical alert info. Pt to contact dtr to notify and arrange transport. SW provided options for paying privately to remain in TCU or another SNF; pt denied. Pt denied DME needs. - SW phoned referral to [facility]. 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
--- NOTE | 2025-02-22 19:27 | PCM.DC.SUM ---
Providers Date of Admission: 02/05/25 Primary Care Physician: Vidal Ling, [employer]IOR [employer] Reason For Visit: SEVERE LACTIC ACIDOSIS Diagnosis Discharge Diagnosis (1) Debility: Status: Acute Code(s): R53.81 - Other malaise (2) Anasarca: Status: Resolved Code(s): R60.1 - Generalized edema (3) Mantle cell lymphoma: Status: Chronic Code(s): C83.10 - Mantle cell lymphoma, unspecified site Qualifiers: Lymphoma site: multiple regions Qualified Code(s): C83.18 - Mantle cell lymphoma, lymph nodes of multiple sites (4) Pneumoperitoneum: Status: Resolved Code(s): K66.8 - Other specified disorders of peritoneum (5) UTI (urinary tract infection): Status: Acute Code(s): N39.0 - Urinary tract infection, site not specified (6) Pleural effusion: Status: Acute Code(s): J90 - Pleural effusion, not elsewhere classified (7) Ascites: Status: Acute Code(s): R18.8 - Other ascites (8) Acidosis, lactic: Status: Acute Code(s): E87.20 - Acidosis, unspecified (9) Pancytopenia: Status: Acute Code(s): D61.818 - Other pancytopenia (10) Hyperphosphatemia: Status: Acute Code(s): E83.39 - Other disorders of phosphorus metabolism (11) Vitamin D deficiency: Status: Acute Code(s): E55.9 - Vitamin D deficiency, unspecified (12) GERD (gastroesophageal reflux disease): Status: Acute Code(s): K21.9 - Gastro-esophageal reflux disease without esophagitis (13) Nausea: Status: Acute Code(s): R11.0 - Nausea (14) Hypokalemia: Status: Acute Code(s): E87.6 - Hypokalemia (15) Tumor lysis syndrome: Status: Acute Code(s): E88.3 - Tumor lysis syndrome Plan 69 year old female with below past medical history hospitalized for mantle cell lymphoma, complicated by anasarca, urinary tract infection, pleural effusion, ascites, pancytopenia, hyperphosphatemia, admitted to TCU with debility, here for rehabilitation, strengthening, prior to discharge home alone. Debility - PT/OT. Pain - Tylenol 1000mg q6 prn pain (1-10). Bowel - senna/colace 1 tablet bid, Magnesium citrate 150mL po x 1 prn. Adult immunization - Administer pneumonia vaccine, covid vaccine, flu vaccine as appropriate. DVT prophylaxis - Hold, pancytopenia. 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 Vitamin D deficiency - Vitamin D 1.25mg qmonth. Anasarca - Furosemide 40mg daily. Rash - HC topical tid prn. Port - Emla cream 2.5gm topical x 1 prn. Insomnia - Melatonin 3mg qhs prn. Skin irritation - Calmoseptine topical bid. Nutrition - MVI 1 tablet daily. Tinea Corporis - Nystatin powder topical bid. Nausea - Zofran odt 4mg q8h prn. GERD - Pantoprazole 40mg daily. Hypokalemia - KCL ER 20meq bidcm. Medications at Discharge Home Medications cholecalciferol (vitamin D3) 1,250 mcg (50,000 unit) capsule 1,250 mcg PO QMONTH [facility] 11/26/24 mv-mn [id number] 1 tab PO DAILY SUPPLEMENT 12/07/24 allopurinol 300 mg tablet 300 mg PO QDAY gout #7 tabs 01/14/25 lidocaine-prilocaine 2.5 %-2.5 % topical cream 1 applic topical ONCE PRN port access 30 days #30 grams 01/14/25 ondansetron 8 mg disintegrating tablet 8 mg PO Q8H PRN nausea and vomiting #30 tabs 01/14/25 melatonin 3 mg tablet 3 mg PO QHS PRN PRN Insomnia #0 tabs 02/05/25 acetaminophen 500 mg tablet 1,000 mg (2 x 500 mg) PO Q6H PRN PRN Pain Score 1-10 #0 tabs 02/22/25 furosemide 20 mg tablet 20 mg PO DAILY 30 days #30 tabs 02/22/25 pantoprazole 40 mg tablet,delayed release 40 mg PO DAILY 30 days #30 tabs 02/22/25 potassium chloride 20 mEq tablet,extended release(part/cryst) 20 meq PO BIDCM 30 days #60 tabs 02/22/25 Hospital Course Operations None Procedures None Summary of Care Provided Minutes Spent on Discharge: 35 Hospital Course: 69 year old female with below past medical history hospitalized for mantle cell lymphoma, complicated by anasarca, urinary tract infection, pleural effusion, ascites, pancytopenia, hyperphosphatemia, admitted to TCU with debility, here for rehabilitation, strengthening, prior to discharge home alone. Discharge home alone 02/23/2025, [facility] PT/OT/SN/URIARTE/SW. Physical Exam Const alert General Appearance: cooperative HEENT normocephalic Eyes PERRL and EOMs intact bilaterally Neck supple, no JVD and no carotid bruits Chest Chest Narrative: Port. Resp normal respiratory effort, normal air movement and clear to auscultation bilaterally Cardio regular rate and regular rhythm GI normal to inspection, nondistended, normoactive bowel sounds, non-tender and non-distended Extremity normal capillary refill General Extremity: Negative for edema Skin no rashes or lesions noted General Skin Exam: no breakdown Psych affect normal Appearance: appropriate Medical Records Data Medical Nutrition Assessment Dietitian: Malnutrition Criteria Met Start: 02/22/25 11:50 Freq: Status: Active Protocol: Document 02/22/25 11:50 SLA (Rec: 02/22/25 11:51 SLA [id number]) Nutrition Malnutrition Evidence of Yes Malnutrition Exists Malnutrition (severe Acute Illness/Injury ): Evidenced By Weight Loss (Severe),Physical Changes (Severe) Intake Problem Inadequate Oral Intake Status Inactive Problem Clinical Problem Acute Disease or Injury Related Malnutrition Etiology related to inadequate energy intake and mantle cell lymphoma Signs/Symptoms as evidenced by 5% unintended wt loss x < 1 wk, fat loss/muscle wasting throughout body and BMI < 16 Status Active Problem Recommendation Dietitian Change to liberal regular diet w/ 240 ml EPHP tid w/ Recommendations/ meals and magic cup w/ lunch and dinner Changes Encourage res to order snacks w/ meals for later during day Will continue to follow and monitor for changes in res nutritional status and make additional rec as indicated . Weight / BMI Weight Weight: 44.724 kg Body Mass Index (BMI) 15.5 ABG / Lab / Microbiology Data 02/19/25 05:34 02/19/25 05:34 Microbiology: Microbiology 02/10/25 18:28 Genital vaginal Herpes Simplex Virus Culture - Final 02/16/25 05:30 Nasal Secretion SARS-CoV-2 Antigen (Rapid) - Final 02/14/25 05:40 Nasal Secretion SARS-CoV-2 Antigen (Rapid) - Final 02/12/25 05:20 Nasal Secretion SARS-CoV-2 Antigen (Rapid) - Final D/C Instructions Discharge Activity: Return to Normal Activity, May Shower and Use Walker Weight Bearing Status: Weight bearing as tolerated Call your doctor if you observe: Fever of 101 or Higher, Inability to urinate, Inability to have a bowel movement, Shortness of breath, Dizziness, Fainting spells, Swelling in the ankles, Chest pain and Uncontrolled pain DC O2, CPAP, BIPAP Needs Home O2 Discharge instructions: No Additional Instructions: Discharge home alone 02/23/2025, [facility] PT/OT/SN/URIARTE/SW. Please Follow Up With: Ten Nogueira MD When: As scheduled. Meaningful Use Info Meaningful Use Meaningful Use Diagnoses (Choose all that apply): None applicable Discharge Plan Admission Admit Date/Time: 02/05/25 16:30 Primary Reason for Your Visit: Debility. Attending Provider: Bernard Boyd Chi Primary Care Provider: Vidal Ling [employer] Instructions Additional Instructions / Restrictions: Discharge home alone 02/23/2025, [facility] PT/OT/SN/URIARTE/SW. Discharge Orders/Prescriptions Prescriptions: New acetaminophen 500 mg Tablet 1,000 mg PO Q6H PRN PRN (Reason: Pain Score 1-10) Qty: 0 0RF potassium chloride 20 mEq Tablet,Er Particles/Crystals 20 meq PO BIDCM 30 Days Qty: 60 0RF pantoprazole 40 mg Tablet,Delayed Release (Dr/Ec) 40 mg PO DAILY 30 Days Qty: 30 0RF furosemide 20 mg Tablet 20 mg PO DAILY 30 Days Qty: 30 0RF Continued cholecalciferol (vitamin D3) 1,250 mcg (50,000 unit) capsule 1,250 mcg PO QMONTH ondansetron 8 mg tablet,disintegrating 8 mg PO Q8H PRN (Reason: nausea and vomiting) Qty: 30 2RF lidocaine-prilocaine 2.5-2.5 % cream 1 applic topical ONCE PRN (Reason: port access) 30 Days Qty: 30 2RF allopurinol 300 mg tablet 300 mg PO QDAY Qty: 7 0RF Patient Comments: starting 01/24/2025 Rx Instructions: Start on 01/24/25 mv-mn [id number] [Centrum ] 1 tab PO DAILY melatonin 3 mg Tablet 3 mg PO QHS PRN PRN (Reason: Insomnia) Qty: 0 0RF Discontinued vitamin B complex Tablet 1 tab PO QDAY pantoprazole 40 mg tablet,delayed release (DR/EC) 40 mg PO DAILY acetaminophen 325 mg Tablet 650 mg PO Q6H PRN PRN (Reason: Pain 1-10 Or Fever>100.7) Qty: 0 0RF potassium chloride 20 mEq Tablet,Er Particles/Crystals 20 meq PO BIDCM Qty: 0 0RF furosemide [Lasix] 40 mg tablet 40 mg PO DAILY Qty: 1 0RF Referrals / Follow Up: Ten Nogueira MD [Med Staff - Active Staff, Oncology] - 03/08/25 8:45 am Referral Note: 8:45a for bloodwork, will see the DrAndi @ 9:30a for her appointment Vidal Ling S[employer], [employer] [Primary Care Provider, Family Practice] - 03/01/25 11:30 am Disposition Disposition (needs filled in before D/C Order can be placed): Home Health Service
[2025-02-23 05:58] VITALS: BMI 15.3
[2025-02-23 06:46] VITALS: PULSE 85; RESP 16; O2SAT 97
[2025-02-23 07:53] VITALS: BP 129/68; PULSE 89; RESP 16; TEMP 37.2; O2SAT 96
[2025-02-23] MEDS: Potassium Chloride Oral Tablet 20 MEQ PO (08:02)
--- NOTE | 2025-02-23 08:08 | NURSING ---
returned home meds to pt lidocaine tube and bottle of allopurinol pills.
== END 2025-02-23 11:17 | disposition home health service (06) | DRG 840 ==
PROVIDERS: Admitting Provider Family Medicine Geriatric Medicine; PCP Nurse Practitioner Family; Referring Provider Family Medicine Geriatric Medicine; Visit Provider Family Medicine Geriatric Medicine
DX: C83.18 Mantle cell lymphoma, lymph nodes of multiple sites (principal); E88.3 Tumor lysis syndrome; E44.0 Moderate protein-calorie malnutrition; D61.818 Other pancytopenia; J90 Pleural effusion, not elsewhere classified; E87.20 Acidosis, unspecified; R18.8 Other ascites; N39.0 Urinary tract infection, site not specified; Z68.1 Body mass index [BMI] 19.9 or less, adult; J43.9 Emphysema, unspecified; I10 Essential (primary) hypertension; E87.6 Hypokalemia; K21.9 Gastro-esophageal reflux disease without esophagitis; E55.9 Vitamin D deficiency, unspecified; I89.0 Lymphedema, not elsewhere classified; B96.20 Unspecified Escherichia coli [E. coli] as the cause of diseases classified elsewhere; B35.4 Tinea corporis; G47.00 Insomnia, unspecified; Z87.891 Personal history of nicotine dependence; Z79.899 Other long term (current) drug therapy; Z74.01 Bed confinement status; A60.09 Herpesviral infection of other urogenital tract; B37.31 Acute candidiasis of vulva and vagina
CPT/HCPCS: 36415; 36430; 80048; 85025; 86850; 86900; 86901; 87255; 87811; 97110; 97116; 97162; 97165; 97530; 97535; 99406; P9016; A4216

== ENCOUNTER → 2025-02-12 | Outpatient (CLI) | payer OTHER, SELFPAY ==
--- OUTSIDE RECORDS SUMMARY | 2025-02-12 14:34 | XMS RPT_ITS | CCD ---
Author Organization [facility] Care Team Providers Care Toy Stuffer Name Role Phone RANJITH HINES APRN, CNP Primary Care Phys ician Ranjith Ling CNP Primary Care Provider Ranjith Ling CNP Primary Care Provider ANURADHA JOHNSON - RANJITH VASQUEZ Primary Care U navailable ANURADHA ALEX - RANJITH VASQUEZ Attending U navailable ANURADHAKAMARI JOHNSON - RANJITH VASQUEZ Primary Care U navailable ANURADHA ALEX - RANJITH VASQUEZ Attending U roel PEREZ MD, DR DECKER Attending Unavailabl e ANURADHA JOHNSON - RANJITH VASQUEZ Primary Care U navailable ARTURO SHAIKH DO Attending Unavailable ANURADHALAURIE JOHNSON - RANJITH VASQUEZ Primary Care U navailable [place] eng[place] CNP Primary Care Provider RANJITH LING Primary Care Unavailable TO ALCARAZ Attending Unavailable RANJITH LING Referring Unavailable PROVIDER, UNKNOWN Attending Unavailable PROVIDER, UNKNOWN Admitting Unavailable Anuradha QUALITY FACILITATOR-CRanjith Primary Care Physi lalitha Dr. Jeronimo Perez MD Attending Physician Dr. Jeronimo Perez MD Referring Provider Allegra Hylton Attending Physician Unavailable Moris LOPEZ, Dr. Roa Emergency Department Physician ANURADHA JOHNSON - RANJITH VASQUEZ Attending U navailable ANURADHAKAMARI JOHNSON - RANJITH VASQUEZ Primary Care U navailable ANURADHA V BLOCK SAW OPERATOR - TILE SETTER APPRENTICERANJITH Attending U navailable ANURADHA V BLOCK SAW OPERATOR - TILE SETTER APPRENTICE, RANJITH Smith Primary Care U navailable ANURADHA V BLOCK SAW OPERATOR - TILE SETTER APPRENTICE, RANJITH Smith Primary Care U navailable ANURADHA V BLOCK SAW OPERATOR - TILE SETTER APPRENTICE, RANJITH Smith Attending U navailable Anuradha QUALITY FACILITATOR-C, Ranjith Maximus Primary Care Physi lalitha Nelida LOPEZ, Dr. Decker Attending Physician Nelida LOPEZ, Dr. Decker Referring Provider Allegra Hylton Attending Physician Unavailable Moris LOPEZ, Dr. Roa Attending Physician Moris LOPEZ, Dr. Roa Emergency Department Physician Anuradha QUALITY FACILITATOR-C, Ranjith Stroud Referring Provider Jero LOPEZ, Dr. Caal Attending Physician [phone] Emre LOPEZ, Dr. Madera Attending Physician Jero LOPEZ, Dr. Caal Referring Provider Emre LOPEZ, Dr. Madera Referring Provider [place], Ranjith Maximus Referring Unavail able Anuradha, Ranjith Stroud Primary Care Unavail able Cassy Diggs Attending Unavailable Anuradha, Ranjith Marcelinonis Referring Unavail able BriannekarTen lr Attending Unavailable Anuradha, Ranjith Marcelinonis Primary Care Unavail able Anuradha, Ranjith Stroud Primary Care Unavail able Cassy Diggs Attending Unavailable BriannekarTen lr Attending Unavailable Briannekarus, Ten Referring Unavailable [place], Ranjith Marcelinonis Primary Care Unavail able IsckarusTen Attending Unavailable Isckarus, Mansour Referring Unavailable [place], Ranjith Stroud Primary Care Unavail able Jeronimo Perez Attending Unavailable Nelida, Jeronimo Referring Unavailable [place], Ranjith Marcelinonis Primary Care Unavail able Anuradha, Ranjith Maximus Consulting Unavail able Jeronimo Perez Attending Unavailable Joribour, Jeronimo Referring Unavailable Anuradha, Ranijth Maximus Primary Care Unavail able [place], Ranjith Maximus Primary Care Unavail able RobotCassy zarate Attending Unavailable Robottessa Cassy Referring Unavailable [place], Ranjith Maximus Primary Care Unavail able Crispin Subramanian Attending Unavailable Allegra Hylton Attending Unavailable Anuradha, Ranjith Maximus Primary Care Unavail able Anuradha, Ranjith Maximus Primary Care Unavail able Isckarus, Mansour Attending Unavailable Ranjith Ling Referring Unavail able Allergies Allergy Classification Reported Allergen(s) Allergy Type Date of Onset Reaction(s) Facility (15 sources) moxifloxacin; Translations: [moxifloxacin] Drug Allergy 2 Hives [facility] (13 sources) terbinafine; Translations: [terbinafine] Drug Allergy 2 Hives, Fatigue (finding), Fever (finding), Eruption of skin (disorder) [facility] Work Phone: (1 source) moxifloxacin Drug Allergy 5 [facility] (1 source) terbinafine Drug Allergy 5 [facility] Medications Current Medications Medication Drug Class(es) Dates Sig (Normalized) Sig (Original) acetaminophen 325 mg / HYDROcodone bitartrate 5 mg oral tablet (2 sources) Opioid Agonist Start: 11-24-2024 End: 11-29-2024 take 1 tablet by mouth every six hours as needed for pain [place] 325- 5 mg oral tablet Dose = 1 tab(s), Oral, q6h, PRN for pain, Fill Date: 11/24/2024, X 5 day(s), # 20 tab(s), 0 Refill(s), Pharmacy: [facility], T-cell lymphoma, 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, cm, 11/24/24 12:54:00 EDT, Height, 47.4, kg, 11/24/24 12:54:00 EDT, Dosing Weight Start Date: 11/24/24 Stop Date: 11/29/24 Status: Ordered Medication Dispense Status: Completed Quantity: 20.0 Unit: tab(s) Total Allowed Fills: 1 Fills Dispensed: 0 Indications: Non-Hodgkin lymphoma, unspecified, unspecified site; [id number] 200 actuat albuterol 0.09 mg/actuat metered dose inhaler (6 sources) beta2-Adrenergic Agonist Start: 12-08-2021 albuterol HFA (PROVENTIL HFA, VENTOLIN HFA) 90 mcg/actuation inhaler 12/08/2021 Active Start: 03-28-2021 End: 06-26-2021 take 1 puff(s) by inhalation every four hours ProAir HFA MDI (90 mcg/inh) inhalation aerosol 1 puff(s), Inhalation, q4h, # 8 gram(s), 2 Refill(s), Pharmacy: [facility], Acute bronchitis, 169.5, cm, [...] # 18 gram(s), 0 Refill(s), Pharmacy: [facility], Acute bronchitis, 169.5, cm, [...] 0 Refill(s), 06/25/21 9:54:00 EDT, Pharmacy: [facility], Acute URI, 169.5, cm, [...] # 4 cap(s), 1 Refill(s), Pharmacy: [facility], Vitamin D deficiency, 167, cm, 09/15/24 [...] # 4 cap(s), 1 Refill(s), Pharmacy: [facility], Vitamin D deficiency, 166, cm, 04/23/23 13:15:00 EST, Height, kg, 04/23/23 13:15:00 EST, Dosing Weight Start Date: 10/24/23 Stop Date: 04/21/24 Status: Ordered Start: 04-23-2023 End: 10-20-2023 cholecalciferol 1250 mcg (50 ,000 intl units) oral capsule Dose : 50,000 International_Unit = 1 cap(s), Oral, qmonth, # 4 cap(s), 1 Refill(s), Pharmacy: [facility], Vitamin D deficiency, 166, cm, 04/23/23 13:15:00 EST, Height, kg, 04/23/23 13:15:00 EST, Dosing Weight Start Date: 04/23/23 Stop Date: 10/20/23 Status: Ordered dexamethasone 6 mg oral tablet (2 sources) Corticosteroid Start: 07-04-2021 End: 07-14-2021 dexamethasone 6 mg oral tablet Dose : 6 mg = 1 tab(s), Oral, qDay, X 10 day(s), # 10 tab(s), 0 Refill(s), 07/14/21 13:40:00 EDT, Pharmacy: [facility], Acute bronchitis, 169.5, cm, 07/04/21 13:17:00 EDT, Height Start Date: 07/04/21 Stop Date: 07/14/21 Status: Ordered Start: 06-20-2021 End: 06-30-2021 dexamethasone 6 mg oral tabl et Dose : 6 mg = 1 tab(s), Oral, qDay, X 10 day(s), # 10 tab(s), 0 Refill(s), 06/30/21 9:54:00 EDT, Pharmacy: [facility], Acute URI, 169.5, cm, 06/20/21 9:22:00 EDT, Height Start Date: 06/20/21 Stop Date: 06/30/21 Status: Ordered doxycycline monohydrate 100 mg oral capsule (1 source) Tetracycline-class Drug Start: 07-04-2021 End: 07-14-2021 doxycycline monohydrate 100 mg oral capsule Dose : 100 mg = 1 cap(s), Oral, BID, X 10 day(s), # 20 cap(s), 0 Refill(s), 07/14/21 13:40:00 EDT, Pharmacy: [facility], Acute bronchitis, 169.5, cm, [...] 0 Refill(s), 07/14/21 13:40:00 EDT, Pharmacy: [facility], Acute bronchitis, 169.5, cm, 07/04/21 13:17:00 EDT, Height Start Date: 07/04/21 Stop Date: 07/14/21 Status: Ordered Start: 06-20-2021 End: 06-30-2021 guaiFENesin 600 mg oral tabl et, extended release Dose : 600 mg = 1 tab(s), Oral, q12h, X 10 day(s), # 20 tab(s), 0 Refill(s), 06/30/21 9:54:00 EDT, Pharmacy: [facility], Acute URI, 169.5, cm, [...] # 90 tab(s), 1 Refill(s), Pharmacy: [facility], 166, cm, 04/23/23 13:15:00 EST, Height, kg, 04/23/23 13:15:00 EST, Dosing Weight Start Date: 10/24/23 Status: Ordered Start: 04-23-2023 take 1 tablet by delfin th once daily hydrochlorothiazide-lisinopril 12.5 mg-1 0 mg oral tablet Dose = 1 tab(s), Oral, qDay, # 90 tab(s), 1 Refill(s), Pharmacy: [facility], 166, cm, 04/23/23 13:15:00 EST, Height, kg, 04/23/23 13:15:00 EST, Dosing Weight Start Date: 04/23/23 Status: Ordered Start: 01-05-2022 lisinopril-hyd roCHLOROthiazide (PRINZIDE,ZESTORETIC) 10-12.5 mg per tablet 01/05/2022 Active Start: 03-28-2021 End: 12-23-2021 take 1 tablet by mouth once daily hydrochlorothiazide-lisinopril 12.5 mg-1 0 mg oral tablet Dose = 1 tab(s), Oral, qDay, # 90 tab(s), 2 Refill(s), Pharmacy: [facility], 169.5, cm, 03/28/21 13:30:00 [...] 600 mg ta blet 10/05/2021 08/22/2024 Discontinued [facility] Medication (2 sources) Start: 12-09-2018 [facility] Medicatio n 1 tab, Daily, , 0 Refill(s) Start Date: 12/09/18 Status: Ordered mv-mn 359-FG-zn7-dha-epa-fis h (2 sources) Start: 12-07-2024 Start: 12-07-2024 mv-mn 115-FA-o e8-ljd-osu-fish Active 1 {tbl} PO DAILY December 07, [...] # 90 tab(s), 1 Refill(s), Pharmacy: [facility], Celiac disease, 167, cm, [...] # 30 tab(s), 0 Refill(s), Pharmacy: [facility], 169.5, cm, 06/20/21 9:22:00 [...] made to exam dated: 12/14/2011 mammogram - [facility]. The tissue of both breasts is [...] made to exam dated: 12/14/2011 mammogram - [facility]. The tissue of both breasts is [...] Automatedon 11-1 Anisocytosis Ql (Bld) 1+ Normal [facility] Comment on above: Performed By: #### L 300.3900, L300.4310, L101.9900, L3410.2400, L100.0500, L501.6710, L500.4050 #### [facility] [address] [place], [address] PLT EST MOD DEC Normal ADEQ [facility] Comment on above: Performed By: #### L 300.3900, L300.4310, L101.9900, L3410.2400, L100.0500, L501.6710, L500.4050 #### [facility] [address] [place], [address] Comprehensive Metabolic Prof ilon 01-11-2025 Albumin [Mass/Vol] 3.0 g/dL Low 3.4-4.8 [facility] Comment on above: Performed By: #### L 300.3900, L300.4310, L101.9900, L3410.2400, L100.0500, L501.6710, L500.4050 #### [facility] [address] [place], [address] Albumin/Globulin [Mass ratio] 1.2 {ratio} Normal 0.9-2.4 [facility] Comment on above: Performed By: #### L 300.3900, L300.4310, L101.9900, L3410.2400, L100.0500, L501.6710, L500.4050 #### [facility] [address] [place], [address] ALK PHOS 234 U/L High 35-104 [facility] Comment on above: Performed By: #### L 300.3900, L300.4310, L101.9900, L3410.2400, L100.0500, L501.6710, L500.4050 #### [facility] [address] [place], [address] ALT [Catalytic activity/Vol] 46 U/L High <=34 [facility] Comment on above: Performed By: #### L 300.3900, L300.4310, L101.9900, L3410.2400, L100.0500, L501.6710, L500.4050 #### [facility] [address] [place], [address] AST [Catalytic activity/Vol] 84 U/L High <=31 [facility] Comment on above: Performed By: #### L 300.3900, L300.4310, L101.9900, L3410.2400, L100.0500, L501.6710, L500.4050 #### [facility] [address] [place], [address] Bilirubin [Mass/Vol] 1.11 mg/dL Normal 0.00-1.30 [facility] Comment on above: Performed By: #### L 300.3900, L300.4310, L101.9900, L3410.2400, L100.0500, L501.6710, L500.4050 #### [facility] [address] [place], [address] BUN/CRE 23.2 RATIO High 10-20 [facility] Comment on above: Performed By: #### L 300.3900, L300.4310, L101.9900, L3410.2400, L100.0500, L501.6710, L500.4050 #### [facility] [address] [place], [address] Calcium [Mass/Vol] 10.6 mg/dL Normal 7.6-11.0 [facility] Comment on above: Performed By: #### L 300.3900, L300.4310, L101.9900, L3410.2400, L100.0500, L501.6710, L500.4050 #### [facility] [address] [place], [address] Chloride [Moles/Vol] 102 mmol/L Normal 98-108 [facility] Comment on above: Performed By: #### L 300.3900, L300.4310, L101.9900, L3410.2400, L100.0500, L501.6710, L500.4050 #### [facility] [address] [place], [address] CO2 [Moles/Vol] 24.3 mmol/L Normal 21.0-32.0 [facility] Comment on above: Performed By: #### L 300.3900, L300.4310, L101.9900, L3410.2400, L100.0500, L501.6710, L500.4050 #### [facility] [address] [place], [address] ( Creatinine [Mass/Vol] 1.39 mg/dL High 0.70-1.20 [facility] Comment on above: Performed By: #### L 300.3900, L300.4310, L101.9900, L3410.2400, L100.0500, L501.6710, L500.4050 #### [facility] [address] [place], [place], [phone] (180) ECRCL 31.07 ml/min Low 50-250 [facility] Comment on above: Performed By: #### L 300.3900, L300.4310, L101.9900, L3410.2400, L100.0500, L501.6710, L500.4050 #### [facility] [address] [place], [place], [phone] (774) GAP 16 High 5-15 [facility] Comment on above: Performed By: #### L 300.3900, L300.4310, L101.9900, L3410.2400, L100.0500, L501.6710, L500.4050 #### [facility] [address] [place], [place], [phone] (836) GFR/1.73 sq M.predicted among non-blacks MDRD (S/P/Bld) [Vol rate/Area] 41 mL/min/{1.73_m2} Low >60 [facility] Comment on above: Result Comment: mL/m in/1.73m2 CKD-EPI Creatinine Equation (2020) Performed By: #### L 300.3900, L300.4310, L101.9900, L3410.2400, L100.0500, L501.6710, L500.4050 #### [facility] [address] [place], [address] Globulin (S) [Mass/Vol] 2.5 g/dL Normal 2.2-4.2 [facility] Comment on above: Performed By: #### L 300.3900, L300.4310, L101.9900, L3410.2400, L100.0500, L501.6710, L500.4050 #### [facility] [address] [place], [address] Glucose [Mass/Vol] 84 mg/dL Normal 70-99 [facility] Comment on above: Performed By: #### L 300.3900, L300.4310, L101.9900, L3410.2400, L100.0500, L501.6710, L500.4050 #### [facility] [address] [place], [address] Potassium [Moles/Vol] 3.7 mmol/L Normal 3.3-5.1 [facility] Comment on above: Performed By: #### L 300.3900, L300.4310, L101.9900, L3410.2400, L100.0500, L501.6710, L500.4050 #### [facility] [address] [place], [address] Sodium [Moles/Vol] 142 mmol/L Normal 133-145 [facility] Comment on above: Performed By: #### L 300.3900, L300.4310, L101.9900, L3410.2400, L100.0500, L501.6710, L500.4050 #### [facility] [address], [address] T PROT 5.5 g/dL Low 5.9-8.4 [facility] Comment on above: Performed By: #### L 300.3900, L300.4310, L101.9900, L3410.2400, L100.0500, L501.6710, L500.4050 #### [facility] [address] [place], [address] Urea nitrogen [Mass/Vol] 32 mg/dL High 4-19 [facility] Comment on above: Performed By: #### L 300.3900, L300.4310, L101.9900, L3410.2400, L100.0500, L501.6710, L500.4050 #### [facility] [address] [place], [address] Oncology Visit Reporton 01-02 Oncology Visit Report [facility] [address] [place], [place] [address] OFFICE VISIT Date of Service: 01/11/25 1459 MR#: [id number] Acct: [id number] Name: ESTELLA MIRELES Rep #: [id number] : 1955 From: Ten Nogueira MD Age/Sex: 69/F Location: [facility] Status: Signed HPI Subjective Date of Service [...] cell lymphoma, p53 wild type. [facility] Medical History (Updated 01/11/25 @ 15:45 by [...] 01/11/25 15:03 (more content not included)... Normal [facility] Chest WITH Contraston 2024 Chest WITH Contrast [facility] Imaging Services [address] [place] [address] [id number] Chest WITH Contrast MR#: [id number] Acct: [id number] Name: ESTELLA MIRELES Rep #: [id number] : 1955 F 69 From: Roby munguia MD PCP: Ranjith Ling, QUALITY FACILITATOR-C Status: REG CLI Study: Chest WITH Contrast Date of Exam: 01/06/25 Exam# [id number] Ordering Dr: Ten Nogueira MD PROCEDURE: CHEST WITH CONTRAST 01/06/2025 REASON FOR EXAM: LYMPHADENOPATHY/SPLENO MEGALY Lower extremity swelling. TECHNIQUE: Procedure Code: CTCHW [...] at the left lung base. Reading Location: [id number] CC: QUALITY FACILITATOREstephania Ling; Dr. Ten Nogueira MD Operations Mgr: Signed Normal [facility] Anion gap in Serum or Plasma Ordered By: Ten Nogueira on 12-29-2024 Anion gap [Moles/Vol] 15 mmol/L - [facility] BUN/creatinine ratioOrdered By: Ten Nogueira on 12-29-2024 Urea nitrogen/Creatinine [Mass ratio] 21.0 mg/mg High 12-21 [facility] Basic Metabolic Profile (BMP )on 12-29-2024 BUN/CRE 21.0 RATIO High 12-21 [facility] Comment on above: Performed By: #### L 300.3900, L300.4310, L101.9900, L3410.2400, L100.0500, L501.6710, L500.4050 #### [facility] [address] [place], [place] [address] [place], [place], [phone] Calcium [Mass/Vol] 10.4 mg/dL Normal 7.6-11.0 [facility] Comment on above: Performed By: #### L 300.3900, L300.4310, L101.9900, L3410.2400, L100.0500, L501.6710, L500.4050 #### [facility] [address] [place], [address] Chloride [Moles/Vol] 102 mmol/L Normal 98-108 [facility] Comment on above: Performed By: #### L 300.3900, L300.4310, L101.9900, L3410.2400, L100.0500, L501.6710, L500.4050 #### [facility] [address] [place], [address] CO2 [Moles/Vol] 27.1 mmol/L Normal 21.0-32.0 [facility] Comment on above: Performed By: #### L 300.3900, L300.4310, L101.9900, L3410.2400, L100.0500, L501.6710, L500.4050 #### [facility] [address] [place], [address] Creatinine [Mass/Vol] 1.03 mg/dL Normal 0.70-1.20 [facility] Comment on above: Performed By: #### L 300.3900, L300.4310, L101.9900, L3410.2400, L100.0500, L501.6710, L500.4050 #### [facility] [address] [place], [address] ECRCL 41.92 ml/min Low 50-250 [facility] Comment on above: Performed By: #### L 300.3900, L300.4310, L101.9900, L3410.2400, L100.0500, L501.6710, L500.4050 #### [facility] [address] [place], [address] GAP 15 Normal 5-15 [facility] Comment on above: Performed By: #### L 300.3900, L300.4310, L101.9900, L3410.2400, L100.0500, L501.6710, L500.4050 #### [facility] [address] [place], [address] GFR/1.73 sq M.predicted among non-blacks MDRD (S/P/Bld) [Vol rate/Area] 59 mL/min/{1.73_m2} Low >60 [facility] Comment on above: Result Comment: mL/m in/1.73m2 CKD-EPI Creatinine Equation (2020) Performed By: #### L 300.3900, L300.4310, L101.9900, L3410.2400, L100.0500, L501.6710, L500.4050 #### [facility] [address] [place], [address] Glucose [Mass/Vol] 91 mg/dL Normal 70-99 [facility] Comment on above: Performed By: #### L 300.3900, L300.4310, L101.9900, L3410.2400, L100.0500, L501.6710, L500.4050 #### [facility] [address] [place], [address] Potassium [Moles/Vol] 3.9 mmol/L Normal 3.3-5.1 [facility] Comment on above: Performed By: #### L 300.3900, L300.4310, L101.9900, L3410.2400, L100.0500, L501.6710, L500.4050 #### [facility] [address] [place], [address] Sodium [Moles/Vol] 144 mmol/L Normal 133-145 [facility] Comment on above: Performed By: #### L 300.3900, L300.4310, L101.9900, L3410.2400, L100.0500, L501.6710, L500.4050 #### [facility] [address] [place], [address] Urea nitrogen [Mass/Vol] 22 mg/dL High 4-19 [facility] Comment on above: Performed By: #### L 300.3900, L300.4310, L101.9900, L3410.2400, L100.0500, L501.6710, L500.4050 #### [facility] [address] [place], [address] Carbon dioxide, total [Moles /volume] in Central venous bloodOrdered By: Ten Nogueira on 12-29-2024 CO2 [Moles/Vol] 27.1 mmol/L 21.0-32.0 [facility] Chloride assayOrdered By: Felipe Nogueira on 12-29-2024 Chloride [Moles/Vol] 102 mmol/L 98-108 [facility] Glomerular filtration rate ( GFR) estimation/1.73 sq m using serum, plasma, or whole bOrdered By: Ten Nogueira on 12-29-2024 GFR/1.73 sq M.predicted among non-blacks MDRD (S/P/Bld) [Vol rate/Area] 59 mL/min/{1.73_m2} Low >60 [facility] Comment on above: mL/min/1.73m2 CKD-EP I Creatinine Equation (2020) IMMUNOPHENOTYPINGon 12-30-19 25 BKR DX CODE Use Ordering Normal [facility] Comment on above: Performed By: #### I MMUNOPHENOTYPING #### [facility] (DEFAULT) [address] [address] Flow Interpreted by: Omar Horta MD [facility] Comment on above: Performed By: #### I MMUNOPHENOTYPING #### [facility] (DEFAULT) [address] [place] [address] IMMUNOPHENOTYPING FLOW See Scanned Result Normal [facility] Comment on above: Performed By: #### I MMUNOPHENOTYPING #### [facility] (DEFAULT) [address] [place] [address] SAMPLE TYPE Tissue/Fluid Normal [facility] Comment on above: Performed By: #### I MMUNOPHENOTYPING #### [facility] (DEFAULT) [address] [place] [address] L350.1820on 12-29-2024 Path. Sent [facility] SEE PATHOLOGY REPORT Normal [facility] Comment on above: Order Comment: RESUL TS FAXED TO DR DIGGS 01/11/25 0859 Josh Webster. Result Comment: Spec imen sent to [facility] Pathology Department. Report available in EMR. Performed By: #### L 300.3900, L300.4310, L101.9900, L3410.2400, L100.0500, L501.6710, L500.4050 #### [facility] [address] [place], [address] L501.2276on 12-29-2024 Ionized Calcium 1.30 mmol/L Normal 1.09-1.30 [facility] Comment on above: Performed By: #### L 300.3900, L300.4310, L101.9900, L3410.2400, L100.0500, L501.6710, L500.4050 #### [facility] [address] [place], [address] Potassium measurement (mass/ volume)Ordered By: Ten Nogueira on 12-29-2024 Potassium (Unsp spec) [Mass/Vol] 3.9 mmol/L 3.3-5.1 [facility] SURG PATH REQUESTon 12-30-19 Case Report Normal [facility] Comment on above: Result Comment: Surg ical Pathology Report Case: [id number] Authorizing Provider: Cassy Diggs MD Collected: 12/29/2024 10:56 AM Ordering Location[facility] Received: 12/29/2024 05:33 PM JANET Pathologist: Omar Horta MD Specimen: SURG PATH, L groin lymph node Performed By: #### S URGP #### [facility] (DEFAULT) [address] [address] Clinical History Preoperative diagnosis: Splenomegaly. Anemia. Left groin lymphadenopathy. [facility] Comment on above: Performed By: #### S URGP #### [facility] (DEFAULT) [address] [address] Diagnosis Comments The patient's histor y of massive splenomegaly and lymphadenopathy is noted. Sections show a proliferative of euqgp-nu-hhheqo sized atypical lymphoid cells. By immunohistochemistry they express CD20, PAX-5, CD5, BCL1, BCL2, CD43 (weak), and SOX11 and lack LEF1 and CD3. They show weak kappa expression by in situ hybridization. Concurrent flow cytometric analysis shows a kappa monotypic B-cell population with expression of CD5(dim), CD20, CD19, CD22(dim), CD43(dim), FMC7, CD81, CD9, and CD38 and lack of CD10 and CD23. The findings are most consistent with mantle cell lymphoma. Correlation with CCND1 FISH and molecular studies is recommended. Normal [facility] Comment on above: Performed By: #### S URGP #### [facility] (DEFAULT) [address] [address] Gross Description Normal [facility] Comment on above: Result Comment: The specimen is received in one properly labeled container with the patient's name and accession number. A. The specimen is designated lymph node L groin and consists of six cores of pale lei-pink and yellow soft tissue ranging from 0.2-0.8 cm in length with an average diameter of 0.1 cm. Please note that two touch preps were performed, and a portion of tissue was previously sent for flow cytometry. TE 1 Lab Use Only: JobID [id number] Grosser for this case was: Uche Raygoza Performed By: #### S URGP #### [facility] (DEFAULT) [address] [address] Microscopic Description Normal [facility] Comment on above: Result Comment: A mi croscopic examination was performed. Sections show fragmented lymphoid tissue with a vaguely nodular infiltrate of atypical pycfj-vy-renvpp sized lymphoid cells. Nuclei show inconspicuous nucleoli and have round, angular, or irregular borders. Cells show scant to moderate cytoplasm. Block Stain Result A1-4 CD3 T-cells positive A1-5 CD20 Positive in lymphoma A1-6 CD5 Positive in lymphoma and T-cells A1-7 BCL-1 (Cyclin D1) Positive in lymphoma A1-8 BCL-2 Oncoprotein Positive in lymphoma and T-cells A1-9 BCL-6 - IHC Scattered cells positive A1-10 Ki-67 antigen - Quant Variable, 20-40% in lymphoma A1-11 CD43 Weakly/partial positive in lymphoma; T-cells positive A1-12 CD21 Highlights distorted or expanded ASSISTED meshworks A1-13 Cyto - Edisto In Situ Weakly positive in lymphoma; few background plasma cells positive A1-14 Cyto -Lambda In Situ Negative in lymphoma; few background plasma cells positive A1-15 CTL Cyto-In Situ Neg Negative control A1-16 [place]-5 Positive in lymphoma A1-17 LEF1 Negative in lymphoma; T-cells positive A1-18 SOX11 Positive in lymphoma A1-19 p53 Few cells weak to moderately positive in lymphoma (~5%) A1-27 CTL LEF1 Control slide with appropriate reactivity A1-28 CTL SOX11 Control slide with appropriate reactivity A1-29 CTL p53 Control slide with appropriate reactivity All controls show appropriate reactivity. All immunohistochemistry (IHC), in situ hybridization (GERMAN), and histochemical tests were developed by and are performed at the [facility], Histology and IHC Lab, [address] [place] [address]. All Immunofluorescent (IF) tests were developed by and are performed at the [facility], Renal Division, [address] [place] [address]. All tests reported here, except for PD-L1, have not been cleared by or approved by the US Food and Drug Administration (FDA). The laboratory is regulated under CLIA as qualified to perform high-complexity testing. The tests are used for clinical purposes. They should not be regarded as investigational or for research. Performed By: #### S URGP #### [facility] (DEFAULT) [address] [place] [address] Pathologic Diagnosis Normal [facility] Comment on above: Result Comment: A. L ymph node, left groin, biopsy CD5+ B-cell lymphoproliferative disorder with BCL-1 expression, consistent with mantle cell lymphoma, see comment at 1551 EST Performed By: #### S URGP #### [facility] (DEFAULT) [address] [place] [address] Professional Interpretation Performed at: Normal [facility] Comment on above: Result Comment: [facility] For Immediate Release to Patient's [facility] Yes [address] [address] Performed By: #### S URGP #### [facility] (DEFAULT) [address] [place] [address] Serum creatinine measurement (mass/volume)Ordered By: Ten Nogueira on 12-29-2024 Creatinine [Mass/Vol] 1.03 mg/dL 0.70-1.20 [facility] Serum glucose measurement (m ass/volume)Ordered By: Ten Nogueira on 12-29-2024 Glucose [Mass/Vol] 91 mg/dL 70-99 [facility] Serum or plasma calcium matt urement (mass/volume)Ordered By: Ten Nogueira on 12-29-2024 Calcium [Mass/Vol] 10.4 mg/dL 7.6-11.0 [facility] Comment on above: *Additional results available. Contact laboratory/see report* Serum or plasma urea nitroge n measurement (mass/volume)Ordered By: Ten Nogueira on 12-29-2024 Urea nitrogen [Mass/Vol] 22 mg/dL High 4-19 [facility] Sodium levelOrdered By: Aneta Nogueira on 12-29-2024 Sodium [Moles/Vol] 144 mmol/L 133-145 [facility] Surgery Visit Reporton 12-29 Surgery Visit Report [facility] [address] [place] [address]. [address] [place] [address] OFFICE VISIT Date of Service: 12/29/24 MR#: [id number] Acct: [id number] Name: ESTELLA MIRELES Rep #: [id number] : 1955 Provider: Dr. Cassy zarate MD Age/Sex: 69/F Location: [facility] Status: Signed Intake Vital Signs 12/22/24 14:33 [...] tab PO QDAY BLOOD PRESSURE 11/2612/29/24 History mg-hydrochlorothiazide 12.5 mg tablet vitamin B complex 1 tab PO QDAY FOR ENERGY 11/26/24 12/29/24 History mv-mn [id number]-fis h 1 tab PO DAILY SUPPLEMENT 12/07/24 12/29/24 History pantoprazole 40 mg tablet,delayed 40 mg PO DAILY STOMACH 12/07/24 1 History release Have you fallen in the past year?: No PFSH Medical History (Updated 12/29/24 @ 12:[address] Cassy Diggs MD) Humoral hypercalcemia of malignancy Lymphadenopathy Depression [...] and no acute distress Nutritional Appearance: cachectic [facility] Head: normocephalic and atraumatic Neck Neck: supple [...] Status: ment (more content not included)... Normal [facility] Folates, RBCon 12-24-2024 Fol.,Hemolysate > 620.0 Normal Not Estab. [facility] Comment on above: Performed By: #### L 300.3900, L300.4310, L101.9900, L3410.2400, L100.0500, L501.6710, L500.4050 #### [facility] [address] [place], [place], [phone] Folate, RBC > 2074 Normal >498 [facility] Comment on above: Result Comment: Perf ormed at: [facility] [address] [id number] Cordwainer: Jeronimo Means PhD, Phone: [phone] Performed By: #### L 300.3900, L300.4310, L101.9900, L3410.2400, L100.0500, L501.6710, L500.4050 #### [facility] [address] [place], [place], [phone] Hematocrit (Bld) [Volume fraction] 29.9 % Low 34.0-46.6 [facility] Comment on above: Performed By: #### L 300.3900, L300.4310, L101.9900, L3410.2400, L100.0500, L501.6710, L500.4050 #### [facility] [address] [place], [place], [phone] [id number] 12-24-2024 Calcium [Mass/Vol] 11.8 mg/dL High 7.6-11.0 [facility] Comment on above: Performed By: #### L 300.3900, L300.4310, L101.9900, L3410.2400, L100.0500, L501.6710, L500.4050 #### [facility] [address] [place], [address] L501.2276on 12-24-2024 Ionized Calcium 1.46 mmol/L High 1.09-1.30 [facility] Comment on above: Performed By: #### L 300.3900, L300.4310, L101.9900, L3410.2400, L100.0500, L501.6710, L500.4050 #### [facility] [address] [place], [address] PTHINon 12-24-2024 PTH 7 pg/mL Low 11-61 [facility] Comment on above: Performed By: #### L 300.3900, L300.4310, L101.9900, L3410.2400, L100.0500, L501.6710, L500.4050 #### [facility] [address] [place], [address] Urine Cultureon 12-24-2024 URC Presumptive E. coli Nogal Count >100,000 Presumptive E. coli: REACTION Ampicillin [...] TMP SMX Islt EDEN <=20 S Normal [facility] Comment on above: Performed By: #### L 300.3900, L300.4310, L101.9900, L3410.2400, L100.0500, L501.6710, L500.4050 #### [facility] [address] [place], [place], [phone] Absolute lymphocyte countOrd ered By: Anetamarissa Nogueira on 12-22-2024 Lymphocytes Auto (Unsp spec) [#/Vol] 1.08 10*3/uL 0.83-4.51 [facility] Absolute neutrophil countOrd ered By: Ten Nogueira on 12-22-2024 Neutrophils (Bld) [#/Vol] 3.0 10*3/uL 2.0-7.7 [facility] Amorphous sediment detection in urine sediment by light microscopyOrdered By: Anetamarissa Nogueira on 12-22-2024 Amorphous sediment LM Ql (Urine sed) 2+ [facility] Automated lymphocyte count a s percentage of total leukocytesOrdered By: Ten Nogueira on 12-22-2024 Lymphocytes/100 WBC Auto (Unsp spec) 20.8 % 19-41 [facility] Basophil percentageOrdered B y: Ten Nogueira on 12-22-2024 Basophils/100 WBC (Bld) 1.9 % High 0-1 [facility] Bilirubin Test strip Ql (U)O rdered By: [facility] on 12-22-2024 Bilirubin Ql (U) Negative Negative [facility] Bilirubin, totalOrdered By: Ten Nogueira on 12-22-2024 Bilirubin [Mass/Vol] 0.96 mg/dL 0.00-1.30 [facility] Blood manual differential co mment interpretation (narrative result)Ordered By: Ten Nogueira on 12-22-2024 Manual differential comment Johnathon (Bld) [Interp] SCANNED [facility] Blood polychromasia detectio n by light microscopyOrdered By: Ten Nogueira on 12-22-2024 Polychromasia LM Ql (Bld) 1+ [facility] CBC W/Diff, Automatedon 12-03 Anisocytosis Ql (Bld) 2+ Normal [facility] Comment on above: Performed By: #### L 300.3900, L300.4310, L101.9900, L3410.2400, L100.0500, L501.6710, L500.4050 #### [facility] [address] [place], [address] HYPOCHROMASIA 1+ Normal [facility] Comment on above: Performed By: #### L 300.3900, L300.4310, L101.9900, L3410.2400, L100.0500, L501.6710, L500.4050 #### [facility] [address] [place], [address] PLT EST MOD DEC Normal ADEQ [facility] Comment on above: Performed By: #### L 300.3900, L300.4310, L101.9900, L3410.2400, L100.0500, L501.6710, L500.4050 #### [facility] [address] [place], [address] POLYCHROMASIA 1+ Normal [facility] Comment on above: Performed By: #### L 300.3900, L300.4310, L101.9900, L3410.2400, L100.0500, L501.6710, L500.4050 #### [facility] [address] [place], [address] SMEAR COMMENT SCANNED Normal [facility] Comment on above: Performed By: #### L 300.3900, L300.4310, L101.9900, L3410.2400, L100.0500, L501.6710, L500.4050 #### [facility] [address] [place], [address] Comprehensive Metabolic Prof ilon 12-22-2024 Albumin [Mass/Vol] 3.6 g/dL Normal 3.4-4.8 [facility] Comment on above: Performed By: #### L 300.3900, L300.4310, L101.9900, L3410.2400, L100.0500, L501.6710, L500.4050 #### [facility] [address] [place], [address] Albumin/Globulin [Mass ratio] 1.4 {ratio} Normal 0.9-2.4 [facility] Comment on above: Performed By: #### L 300.3900, L300.4310, L101.9900, L3410.2400, L100.0500, L501.6710, L500.4050 #### [facility] [address] [place], [address] ALK PHOS 290 U/L High 35-104 [facility] Comment on above: Performed By: #### L 300.3900, L300.4310, L101.9900, L3410.2400, L100.0500, L501.6710, L500.4050 #### [facility] [address] [place], [address] ALT [Catalytic activity/Vol] 138 U/L High <=34 [facility] Comment on above: Performed By: #### L 300.3900, L300.4310, L101.9900, L3410.2400, L100.0500, L501.6710, L500.4050 #### [facility] [address] [place], [address] AST [Catalytic activity/Vol] 197 U/L High <=31 [facility] Comment on above: Performed By: #### L 300.3900, L300.4310, L101.9900, L3410.2400, L100.0500, L501.6710, L500.4050 #### [facility] [address] [place], [address] Bilirubin [Mass/Vol] 0.96 mg/dL Normal 0.00-1.30 [facility] Comment on above: Performed By: #### L 300.3900, L300.4310, L101.9900, L3410.2400, L100.0500, L501.6710, L500.4050 #### [facility] [address] [place], [address] BUN/CRE 22.3 RATIO High 10-20 [facility] Comment on above: Performed By: #### L 300.3900, L300.4310, L101.9900, L3410.2400, L100.0500, L501.6710, L500.4050 #### [facility] [address] [place], [address] Calcium [Mass/Vol] 12.2 mg/dL High 7.6-11.0 [facility] Comment on above: Performed By: #### L 300.3900, L300.4310, L101.9900, L3410.2400, L100.0500, L501.6710, L500.4050 #### [facility] [address] [place], [address] Chloride [Moles/Vol] 99 mmol/L Normal 98-108 [facility] Comment on above: Performed By: #### L 300.3900, L300.4310, L101.9900, L3410.2400, L100.0500, L501.6710, L500.4050 #### [facility] [address] [place], [address] CO2 [Moles/Vol] 25.9 mmol/L Normal 21.0-32.0 [facility] Comment on above: Performed By: #### L 300.3900, L300.4310, L101.9900, L3410.2400, L100.0500, L501.6710, L500.4050 #### [facility] [address] [place], [address] Creatinine [Mass/Vol] 0.99 mg/dL Normal 0.70-1.20 [facility] Comment on above: Performed By: #### L 300.3900, L300.4310, L101.9900, L3410.2400, L100.0500, L501.6710, L500.4050 #### [facility] [address] [place], [address] GAP 18 High 5-15 [facility] Comment on above: Performed By: #### L 300.3900, L300.4310, L101.9900, L3410.2400, L100.0500, L501.6710, L500.4050 #### [facility] [address] [place], [address] GFR/1.73 sq M.predicted among non-blacks MDRD (S/P/Bld) [Vol rate/Area] 62 mL/min/{1.73_m2} Normal >60 [facility] Comment on above: Result Comment: mL/m in/1.73m2 CKD-EPI Creatinine Equation (2020) Performed By: #### L 300.3900, L300.4310, L101.9900, L3410.2400, L100.0500, L501.6710, L500.4050 #### [facility] [address] [place], [address] Globulin (S) [Mass/Vol] 2.6 g/dL Normal 2.2-4.2 [facility] Comment on above: Performed By: #### L 300.3900, L300.4310, L101.9900, L3410.2400, L100.0500, L501.6710, L500.4050 #### [facility] [address] [place], [place], [phone] Glucose [Mass/Vol] 83 mg/dL Normal 70-99 [facility] Comment on above: Performed By: #### L 300.3900, L300.4310, L101.9900, L3410.2400, L100.0500, L501.6710, L500.4050 #### [facility] [address] [place], [address] Potassium [Moles/Vol] 3.9 mmol/L Normal 3.3-5.1 [facility] Comment on above: Performed By: #### L 300.3900, L300.4310, L101.9900, L3410.2400, L100.0500, L501.6710, L500.4050 #### [facility] [address] [place], [address] Sodium [Moles/Vol] 143 mmol/L Normal 133-145 [facility] Comment on above: Performed By: #### L 300.3900, L300.4310, L101.9900, L3410.2400, L100.0500, L501.6710, L500.4050 #### [facility] [address] [place], [address] T PROT 6.2 g/dL Normal 5.9-8.4 [facility] Comment on above: Performed By: #### L 300.3900, L300.4310, L101.9900, L3410.2400, L100.0500, L501.6710, L500.4050 #### [facility] [address] [place], [address] Urea nitrogen [Mass/Vol] 22 mg/dL High 4-19 [facility] Comment on above: Performed By: #### L 300.3900, L300.4310, L101.9900, L3410.2400, L100.0500, L501.6710, L500.4050 #### [facility] [address] [place], [address] Eosinophil percentageOrdered By: Ten Nogueira on 12-22-2024 Eosinophils/100 WBC (Bld) 0.8 % 0-5 [facility] Erythrocyte distribution wid th ratioOrdered By: Ten Nogueira on 12-22-2024 Erythrocyte distribution width (RBC) [Ratio] 18.1 % High 11.6-14.6 [facility] Erythrocyte distribution wid th standard deviationOrdered By: Ten Nogueira on 12-22-2024 Erythrocyte distribution width (RBC) [Ratio] 65.2 fl High 35.1-43.9 [facility] Erythrocyte folate measureme nt with hematocritOrdered By: Ten Nogueira on 12-22-2024 Hematocrit (Bld) [Volume fraction] 29.9 % Low 34.0-46.6 [facility] Ferritinon 12-22-2024 Ferritin [Mass/Vol] 630 ng/mL High 22-378 [facility] Comment on above: Performed By: #### L 300.3900, L300.4310, L101.9900, L3410.2400, L100.0500, L501.6710, L500.4050 #### [facility] [address] [place], [address] HIVon 12-22-2024 HIV Non-Reactive Normal Nonreactive [facility] Comment on above: Result Comment: Non- Reactive Reactive Repeatedly reactive samples must be confirmed according to CDC recommended confirmatory algorithms. The subresults for either HIVAG or AHIV can be used as an aid in the selection of the confirmation algorithm for reactive samples. Send out specimens with Reactive results to [facility] for confirmation. Order the HIV antibody detection and differentiation: #[id number] Performed By: #### L 300.3900, L300.4310, L101.9900, L3410.2400, L100.0500, L501.6710, L500.4050 #### [facility] [address] [place], [address] Hematocrit Auto (Bld) [Volum e fraction]Ordered By: Ten Nogueira on 12-22-2024 Hematocrit (Bld) [Volume fraction] 31.6 % Low 37-47 [facility] Hemoglobin measurementOrdere d By: Ten Nogueira on 12-22-2024 Hemoglobin (Bld) [Mass/Vol] 9.7 g/dL Low 12.0-15.0 [facility] Hypochromatic red blood cell detectionOrdered By: Ten Nogueira on 12-22-2024 Hypochromia Ql (Bld) 1+ [facility] Immature granulocytes/100 WB C Auto (Bld)Ordered By: Ten Nogueira on 12-22-2024 Immature granulocytes/100 WBC (Bld) 2.300 % High 0.0-0.9 [facility] Comment on above: IG% - Immature Granu locytes (promyelocytes, myelocytes and metamyelocytes) > 1% indicates that a LEFT SHIFT is Present. Immature platelet percentage Ordered By: Ten Nogueira on 12-22-2024 Platelets reticulated/100 platelets Auto (Bld) 3.2 % 1.0-7.9 [facility] Comment on above: Low PLT + [...] (Unsp spec) [Mass/Mass] 49 ug/dL Low 50-170 [facility] Iron+Iron Binding Capacityon 12-22-2024 Iron [Mass/Vol] 49 ug/dL Low 50-170 [facility] Comment on above: Performed By: #### L 300.3900, L300.4310, L101.9900, L3410.2400, L100.0500, L501.6710, L500.4050 #### [facility] [address] [place], [place], [phone] IRON SATURATION 19.7 Normal 13-59 [facility] Comment on above: Performed By: #### L 300.3900, L300.4310, L101.9900, L3410.2400, L100.0500, L501.6710, L500.4050 #### [facility] [address] [place], [place], [phone] TIBC 249 ug/dL Low 250-450 [facility] Comment on above: Performed By: #### L 300.3900, L300.4310, L101.9900, L3410.2400, L100.0500, L501.6710, L500.4050 #### [facility] [address] [place], [address] UIBC 200 ug/dL Low 228-428 [facility] Comment on above: Performed By: #### L 300.3900, L300.4310, L101.9900, L3410.2400, L100.0500, L501.6710, L500.4050 #### [facility] [address] [place], [place], [phone] Ketones Test strip Ql (U)Ord ered By: Ten Nogueira on 12-22-2024 Ketones Ql (U) Negative Negative [facility] LDHon 12-22-2024 LDH 446 U/L High 84-246 [facility] Comment on above: Order Comment: 1 Performed By: #### L 300.3900, L300.4310, L101.9900, L3410.2400, L100.0500, L501.6710, L500.4050 #### [facility] [address] [place], [address] Laboratory - Chemistry and C hemistry - challengeOrdered By: Ten Nogueira on 12-22-2024 AST [Catalytic activity/Vol] 197 U/L High <32 [facility] - Hematology and Cell countsOrdered By: Ten Nogueira on 12-22-2024 Anisocytosis Ql (Bld) 2+ [facility] Lactate dehydrogenase (LDH) measurementOrdered By: Ten Nogueira on 12-22-2024 LDH [Catalytic activity/Vol] 446 U/L High 84-246 [facility] MCV (mean corpuscular volume ) determinationOrdered By: Ten Nogueira on 12-22-2024 MCV (RBC) [Entitic vol] 99.4 fL High 81-99 [facility] Magnesiumon 12-22-2024 Magnesium [Mass/Vol] 1.8 mg/dL Normal 1.5-2.2 [facility] Comment on above: Performed By: #### L 300.3900, L300.4310, L101.9900, L3410.2400, L100.0500, L501.6710, L500.4050 #### [facility] [address] [place], [address] Magnesium measurement (mass/ volume)Ordered By: Ten Nogueira on 12-22-2024 Magnesium (Unsp spec) [Mass/Vol] 1.8 mg/dL 1.5-2.2 [facility] Mean corpuscular hemoglobin (MCH) determinationOrdered By: Ten Nogueira on 12-22-2024 MCH (RBC) [Entitic mass] 30.5 pg 27.0-32.0 [facility] Mean corpuscular hemoglobin concentration (MCHC) determinationOrdered By: Ten Nogueira on 12-22-2024 MCHC (RBC) [Mass/Vol] 30.7 g/dL Low 32-36 [facility] Mean platelet volume determi nationOrdered By: Ten Nogueira on 12-22-2024 Platelet mean volume (Bld) [Entitic vol] 10.9 fL 6.2-12.0 [facility] Microscopic analysis of urin e for red blood cells (RBC)Ordered By: Ten Nogueira on 12-22-2024 Microscopic analysis of urine for red blood cells (RBC) 0-5 SEEN /hpf 0-5 [facility] Monocyte percentageOrdered B y: Ten Nogueira on 12-22-2024 Monocytes/100 WBC (Bld) 16.0 % High 0-10 [facility] Mucus LM Ql (Urine sed)Order ed By: Ten Nogueira on 12-22-2024 Mucus Ql (Urine sed) 0 SEEN /hpf [facility] Neutrophil percentageOrdered By: Ten Nogueira on 12-22-2024 Neutrophils/100 WBC (Bld) 58.2 % 47-70 [facility] Nitrite Test strip Ql (U)Ord ered By: Ten Nogueira on 12-22-2024 Nitrite Ql (U) Positive High Negative [facility] No Panel InformationOrdered By: Ten Nogueira on 12-22-2024 HIV (1&2) Antibody Non-Reactive Nonreactive [facility] Comment on above: Non-ReactiveReactive Repeatedly reactive samples must be confirmed according to CDC recommended confirmatory algorithms. The subresults for either HIVAG or AHIV can be used as an aid in the selection of the confirmation algorithm for reactive samples.Send out specimens with Reactive results to [facility] for confirmation.Order the HIV antibody detection and differentiation: #[id number] Unsaturated Iron Binding Capacity 200 ug/dL Low 228-428 [facility] Nucleated red blood cell per centageOrdered By: Ten Nogueira on 12-22-2024 Nucleated RBC/100 WBC (Bld) [Ratio] 0.4 % 0-5 [facility] Oncology Visit Reporton 12-03 Oncology Visit Report [facility] [address] [place] [address] OFFICE VISIT Date of Service: 12/22/24 1424 MR#: [id number] Acct: [id number] Name: ESTELLA MIRELES Rep #: [id number] : 1955 From: Ten Nogueira MD Age/Sex: 69/F Location: [facility] Status: Signed HPI Subjective Date of Service [...] be 2.6 cm in axis. [facility] Medical History (Updated 12/22/24 @ 15:04 by [...] Temperature Source (more content not included)... Normal [facility] Phosphoruson 12-22-2024 Phosphate [Mass/Vol] 2.8 mg/dL Normal 2.7-4.5 [facility] Comment on above: Performed By: #### L 300.3900, L300.4310, L101.9900, L3410.2400, L100.0500, L501.6710, L500.4050 #### [facility] [address] [place], [address] Platelet countOrdered By: Felipe Nogueira on 12-22-2024 Platelets (Bld) [#/Vol] 85 10*3/uL Low 150-450 [facility] Platelet estimateOrdered By: Ten Nogueira on 12-22-2024 Platelets LM Ql (Bld) MOD DEC ADEQ [facility] Protein Test strip Ql (U)Ord ered By: Ten Nogueira on 12-22-2024 Protein Ql (U) 30 mg/dl High Negative [facility] RBC Auto (Bld) [#/Vol]Ordere d By: Ten Nogueira on 12-22-2024 RBC (Bld) [#/Vol] 3.18 10*6/uL Low 4.2-5.4 [facility] Retic Panelon 12-22-2024 IM RET FRACTION 30.40 High 3.00-15.90 [facility] Comment on above: Performed By: #### L 300.3900, L300.4310, L101.9900, L3410.2400, L100.0500, L501.6710, L500.4050 #### [facility] [address] [place], [place], [phone] (734) IPF 3.2 Normal 1.0-7.9 [facility] Comment on above: Result Comment: Low [...] L300.4310, L101.9900, L3410.2400, L100.0500, L501.6710, L500.4050 #### [facility] [address] [place], [place], [phone] ([phone]) RET-HE 34.4 pg Normal 30-35 [facility] Comment on above: Performed By: #### L 300.3900, L300.4310, L101.9900, L3410.2400, L100.0500, L501.6710, L500.4050 #### [facility] [address] [place], [address] Retic Count 3.74 High 0.5-1.5 [facility] Comment on above: Performed By: #### L 300.3900, L300.4310, L101.9900, L3410.2400, L100.0500, L501.6710, L500.4050 #### [facility] [place], [address] Reticulocyte hemoglobin equi valent (RET-He) measurementOrdered By: Ten Nogueira on 12-22-2024 Hemoglobin (Reticulocytes) [Entitic mass] 34.4 pg 30-35 [facility] Reticulocytes Auto (Bld) [#/ Vol]Ordered By: Ten Nogueira on 12-22-2024 Reticulocytes/100 RBC (Bld) 3.74 % High 0.5-1.5 [facility] Serum globulin measurementOr dered By: Ten Nogueira on 12-22-2024 Globulin (S) [Mass/Vol] 2.6 g/dL 2.2-4.2 [facility] Serum or plasma alanine baker otransferase (ALT) measurementOrdered By: Ten Nogueira on 12-22-2024 ALT [Catalytic activity/Vol] 138 U/L High <35 [facility] Serum or plasma albumin matt urement (mass/volume)Ordered By: Ten Nogueira on 12-22-2024 Albumin [Mass/Vol] 3.6 g/dL 3.4-4.8 [facility] Serum or plasma albumin/glob ulin mass ratioOrdered By: Ten Nogueira on 12-22-2024 Albumin/Globulin [Mass ratio] 1.4 {ratio} 0.9-2.4 [facility] Serum or plasma alkaline adama sphatase measurementOrdered By: Ten Nogueira on 12-22-2024 ALP [Catalytic activity/Vol] 290 U/L High 35-104 [facility] Serum or plasma ferritin claudia surement (mass/volume)Ordered By: Ten Nogueira on 12-22-2024 Ferritin [Mass/Vol] 630 ng/mL High 22-378 [facility] Serum or plasma iron saturat ion measurement (mass fraction)Ordered By: Ten Nogueira on 12-22-2024 Iron saturation [Mass fraction] 19.7 % 13-59 [facility] Squamous epithelial cells de tection in urine sediment by light microscopyOrdered By: Ten Nogueira on 12-22-2024 Epithelial cells.squamous LM Ql (Urine sed) 0-5 SEEN /hpf - [facility] Total proteinOrdered By: Ellis Nogueira on 12-22-2024 Protein [Mass/Vol] 6.2 g/dL 5.9-8.4 [facility] Urinalysis, Completeon 12-22 AMORPHOUS 2+ Normal [facility] Comment on above: Order Comment: MAGDIEL CTOR TO SPECIFY Performed By: #### L 300.3900, L300.4310, L101.9900, L3410.2400, L100.0500, L501.6710, L500.4050 #### [facility] [address] [place], [address] EPI,SQUAMOUS 0-5 SEEN Normal 07-11 [facility] Comment on above: Order Comment: MAGDIEL CTOR TO SPECIFY Performed By: #### L 300.3900, L300.4310, L101.9900, L3410.2400, L100.0500, L501.6710, L500.4050 #### [facility] [address] [place], [address] BACTERIA 2+ /hpf Normal None Seen [facility] Comment on above: Order Comment: MAGDIEL CTOR TO SPECIFY Performed By: #### L 300.3900, L300.4310, L101.9900, L3410.2400, L100.0500, L501.6710, L500.4050 #### [facility] [address] [place], [address] RBC 0-5 SEEN Normal 0-5 [facility] Comment on above: Order Comment: MAGDIEL CTOR TO SPECIFY Performed By: #### L 300.3900, L300.4310, L101.9900, L3410.2400, L100.0500, L501.6710, L500.4050 #### [facility] [address] [place], [address] WBC 10-25 SEEN Normal 0-5 [facility] Comment on above: Order Comment: MAGDIEL CTOR TO SPECIFY Performed By: #### L 300.3900, L300.4310, L101.9900, L3410.2400, L100.0500, L501.6710, L500.4050 #### [facility] [address] [place], [address] Mucus Ql (Urine sed) 0 SEEN Normal [facility] Comment on above: Order Comment: MAGDIEL CTOR TO SPECIFY Performed By: #### L 300.3900, L300.4310, L101.9900, L3410.2400, L100.0500, L501.6710, L500.4050 #### [facility] [address] [place], [address] Urine clarityOrdered By: Ellis Nogueira on 12-22-2024 Clarity (U) Cloudy Clear [facility] Urine color determinationOrd ered By: Ten Nogueira on 12-22-2024 Color (U) Yellow Yellow [facility] Urine cultureOrdered By: Ellis Nogueira on 12-22-2024 Bacteria identified Cx Nom (U) Presumptive E. coli Abnormal [facility] Urine glucose detectionOrder ed By: Ten Nogueira on 12-22-2024 Glucose Ql (U) Normal mg/dl Normal [facility] Urine leukocyte esterase det ection by dipstickOrdered By: Ten Nogueira on 12-22-2024 Leukocyte esterase Test strip Ql (U) 25 /ul High Negative [facility] Urine pHOrdered By: Ten Nogueira on 12-22-2024 pH (U) 6.0 [pH] 5.0 - 8.0 [facility] Urine sediment bacteria coun t by microscopy (number/high power field)Ordered By: Ten Nogueira on 12-22-2024 Bacteria LM.HPF (Urine sed) [#/Area] 2 /[HPF] None Seen [facility] Urine specific gravity measu rementOrdered By: Ten Nogueira on 12-22-2024 Specific gravity (U) [Rel density] 1.020 1.002-1.030 [facility] Urine urobilinogen measureme ntOrdered By: Ten Nogueira on 12-22-2024 Urobilinogen Ql (U) Normal mg/dl Normal [facility] Vitamin B12on 12-22-2024 Cobalamin (Vitamin B12) [Mass/Vol] 896 pg/mL Normal 180-914 [facility] Comment on above: Performed By: #### L 300.3900, L300.4310, L101.9900, L3410.2400, L100.0500, L501.6710, L500.4050 #### [facility] [address] [place], [place], [id number] Vitamin B12 ser/plasOrdered By: Ten Nogueira on 12-22-2024 Cobalamin (Vitamin B12) [Mass/Vol] 896 pg/mL 180-914 [facility] White blood cell (WBC) count Ordered By: Ten Nogueira on 12-22-2024 WBC (Bld) [#/Vol] 5.2 10*3/uL 4.4-11.0 [facility] White blood cell countOrdere d By: Ten Nogueira on 12-22-2024 White blood cell count 10-25 SEEN /hpf 0-5 [facility] MRI LIVERon 12-18-2024 MRI LIVER ORIGINAL [...] in conjunction with splenomegaly. Interpreted by: Braeden Hyunh MD Preliminary Report By: Braeden Huynh MD Electronically signed By Braeden Huynh MD Dictated Date: 12/18/2024 9:23:58 AM Prelim Date: 12/18/2024 9:28:43 AM Sign Date: 12/18/2024 9:28:43 AM Ordering Provider: RANJITH LING Normal [facility] Absolute lymphocyte countOrd ered By: Crispin Subramanian on 12-07-2024 Lymphocytes Auto (Unsp spec) [#/Vol] 0.81 10*3/uL Low 0.83-4.51 [facility] Absolute neutrophil countOrd ered By: [facility] on 12-07-2024 Neutrophils (Bld) [#/Vol] 2.9 10*3/uL 2.0-7.7 [facility] Anion gap in Serum or Plasma Ordered By: [facility] on 12-07-2024 Anion gap [Moles/Vol] 15 mmol/L 5-15 [facility] Automated lymphocyte count a s percentage of total leukocytesOrdered By: [facility] on 12-07-2024 Lymphocytes/100 WBC Auto (Unsp spec) 17.7 % Low 19-41 [facility] BUN/creatinine ratioOrdered By: [facility] on 12-07-2024 Urea nitrogen/Creatinine [Mass ratio] 22.6 mg/mg High 10-20 [facility] Basophil percentageOrdered B y: [facility] on 12-07-2024 Basophils/100 WBC (Bld) 1.5 % High 0-1 [facility] Bilirubin, totalOrdered By: Crispin Subramanian on 12-07-2024 Bilirubin [Mass/Vol] 0.73 mg/dL 0.00-1.30 [facility] CBC W/Diff, Automatedon PLT EST MOD DEC Normal ADEQ [facility] Comment on above: Performed By: #### L 300.3900, L300.4310, L101.9900, L3410.2400, L100.0500, L501.6710, L500.4050 #### [facility] [address], [address] CRPon 12-07-2024 C-REACTIVE PROT 56.00 mg/L High 0.0-3.0 [facility] Comment on above: Performed By: #### L 300.3900, L300.4310, L101.9900, L3410.2400, L100.0500, L501.6710, L500.4050 #### [facility] [address], [address] Carbon dioxide, total [Moles /volume] in Central venous bloodOrdered By: Crispin Subramanian on 12-07-2024 CO2 [Moles/Vol] 25.6 mmol/L 21.0-32.0 [facility] Chloride assayOrdered By: Rex Subramanian on 12-07-2024 Chloride [Moles/Vol] 101 mmol/L 98-108 [facility] Comprehensive Metabolic Prof ilon 12-07-2024 Albumin [Mass/Vol] 3.4 g/dL Normal 3.4-4.8 [facility] Comment on above: Performed By: #### L 300.3900, L300.4310, L101.9900, L3410.2400, L100.0500, L501.6710, L500.4050 #### [facility] [address] [place], [address] Albumin/Globulin [Mass ratio] 1.2 {ratio} Normal 0.9-2.4 [facility] Comment on above: Performed By: #### L 300.3900, L300.4310, L101.9900, L3410.2400, L100.0500, L501.6710, L500.4050 #### [facility] [address] [place], [address] ALK PHOS 189 U/L High 35-104 [facility] Comment on above: Performed By: #### L 300.3900, L300.4310, L101.9900, L3410.2400, L100.0500, L501.6710, L500.4050 #### [facility] [address] [place], [address] ALT [Catalytic activity/Vol] 99 U/L High <=34 [facility] Comment on above: Performed By: #### L 300.3900, L300.4310, L101.9900, L3410.2400, L100.0500, L501.6710, L500.4050 #### [facility] [address] [place], [address] AST [Catalytic activity/Vol] 121 U/L High <=31 [facility] Comment on above: Performed By: #### L 300.3900, L300.4310, L101.9900, L3410.2400, L100.0500, L501.6710, L500.4050 #### [facility] [address] [place], [address] Bilirubin [Mass/Vol] 0.73 mg/dL Normal 0.00-1.30 [facility] Comment on above: Performed By: #### L 300.3900, L300.4310, L101.9900, L3410.2400, L100.0500, L501.6710, L500.4050 #### [facility] [address] [place], [address] BUN/CRE 22.6 RATIO High 10-20 [facility] Comment on above: Performed By: #### L 300.3900, L300.4310, L101.9900, L3410.2400, L100.0500, L501.6710, L500.4050 #### [facility] [address] [place], [address] Calcium [Mass/Vol] 10.6 mg/dL Normal 7.6-11.0 [facility] Comment on above: Performed By: #### L 300.3900, L300.4310, L101.9900, L3410.2400, L100.0500, L501.6710, L500.4050 #### [facility] [address] [place], [address] Chloride [Moles/Vol] 101 mmol/L Normal 98-108 [facility] Comment on above: Performed By: #### L 300.3900, L300.4310, L101.9900, L3410.2400, L100.0500, L501.6710, L500.4050 #### [facility] [address] [place], [address] CO2 [Moles/Vol] 25.6 mmol/L Normal 21.0-32.0 [facility] Comment on above: Performed By: #### L 300.3900, L300.4310, L101.9900, L3410.2400, L100.0500, L501.6710, L500.4050 #### [facility] [address] [place], [address] Creatinine [Mass/Vol] 1.25 mg/dL High 0.70-1.20 [facility] Comment on above: Performed By: #### L 300.3900, L300.4310, L101.9900, L3410.2400, L100.0500, L501.6710, L500.4050 #### [facility] [address] [place], [address] ECRCL 1.68 ml/min Invalid Interpretation Code 50-250 [facility] Comment on above: Performed By: #### L 300.3900, L300.4310, L101.9900, L3410.2400, L100.0500, L501.6710, L500.4050 #### [facility] [address] [place], [address] GAP 15 Normal 5-15 [facility] Comment on above: Performed By: #### L 300.3900, L300.4310, L101.9900, L3410.2400, L100.0500, L501.6710, L500.4050 #### [facility] [address] [place], [address] GFR/1.73 sq M.predicted among non-blacks MDRD (S/P/Bld) [Vol rate/Area] 47 mL/min/{1.73_m2} Low >60 [facility] Comment on above: Result Comment: mL/m in/1.73m2 CKD-EPI Creatinine Equation (2020) Performed By: #### L 300.3900, L300.4310, L101.9900, L3410.2400, L100.0500, L501.6710, L500.4050 #### [facility] [address], [address] Globulin (S) [Mass/Vol] 2.9 g/dL Normal 2.2-4.2 [facility] Comment on above: Performed By: #### L 300.3900, L300.4310, L101.9900, L3410.2400, L100.0500, L501.6710, L500.4050 #### [facility] [address] [place], [address] Glucose [Mass/Vol] 90 mg/dL Normal 70-99 [facility] Comment on above: Performed By: #### L 300.3900, L300.4310, L101.9900, L3410.2400, L100.0500, L501.6710, L500.4050 #### [facility] [address], [address] Potassium [Moles/Vol] 3.9 mmol/L Normal 3.3-5.1 [facility] Comment on above: Performed By: #### L 300.3900, L300.4310, L101.9900, L3410.2400, L100.0500, L501.6710, L500.4050 #### [facility] [address], [address] Sodium [Moles/Vol] 142 mmol/L Normal 133-145 [facility] Comment on above: Performed By: #### L 300.3900, L300.4310, L101.9900, L3410.2400, L100.0500, L501.6710, L500.4050 #### [facility] [address], [address] T PROT 6.3 g/dL Normal 5.9-8.4 [facility] Comment on above: Performed By: #### L 300.3900, L300.4310, L101.9900, L3410.2400, L100.0500, L501.6710, L500.4050 #### [facility] [address] [place], [address] Urea nitrogen [Mass/Vol] 28 mg/dL High 4-19 [facility] Comment on above: Performed By: #### L 300.3900, L300.4310, L101.9900, L3410.2400, L100.0500, L501.6710, L500.4050 #### [facility] [address] 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 She was seen at [facility]. Patient is scheduled for an MRI this [...] tightness or heaviness. She denies dyspnea or [place] exertion. Denies orthopnea or PND. She does report swelling of her ankles recently. Patient has no history of alcohol use or cirrhosis. Prior similar symptoms: Yes Recent Illness/Hospitalizatio n: Yes (Seen by PCP approximately 2 weeks ago. Her creatinine at that time was ely) [facility] Medical History Depression Emphysema lung COPD (chronic [...] tab PO QDAY BLOOD PRESSURE 11/2612/07/24 History mg-hydrochlorothiazide 12.5 mg tablet vitamin B complex 1 tab PO QDAY FOR ENERGY 11/26/24 12/06/24 History mv-mn [id number] h 1 tab PO DAILY SUPPLEMENT 12/07/24 12/06/24 [...] documented EXAM (more content not included)... Normal [facility] Eosinophil percentageOrdered By: Crispin Subramanian on 12-07-2024 Eosinophils/100 WBC (Bld) 1.1 % 0-5 [facility] Erythrocyte Sed Rateon 12-07 SED RATE 8 mm/hr Normal 0-30 [facility] Comment on above: Performed By: #### L 300.3900, L501.6710, L101.9900, L500.4050, L100.0100 #### [facility] [address] [place], [address] Erythrocyte distribution wid th ratioOrdered By: Crispin Subramanian on 12-07-2024 Erythrocyte distribution width (RBC) [Ratio] 17.1 % High 11.6-14.6 [facility] Erythrocyte distribution wid th standard deviationOrdered By: Crispinnakita Subramanian on 12-07-2024 Erythrocyte distribution width (RBC) [Ratio] 59.6 fl High 35.1-43.9 [facility] Erythrocyte sedimentation ra teOrdered By: Crispin Subramanian on 12-07-2024 ESR (Bld) [Velocity] 8 mm/h 0-30 [facility] Glomerular filtration rate ( GFR) estimation/1.73 sq m using serum, plasma, or whole bOrdered By: Crispin Subramanian on 12-07-2024 GFR/1.73 sq M.predicted among non-blacks MDRD (S/P/Bld) [Vol rate/Area] 47 mL/min/{1.73_m2} Low >60 [facility] Comment on above: mL/min/1.73m2 CKD-EP I Creatinine Equation (2020) Hematocrit Auto (Bld) [Volum e fraction]Ordered By: Crispin Subramanian on 12-07-2024 Hematocrit (Bld) [Volume fraction] 30.5 % Low 37-47 [facility] Hemoglobin measurementOrdere d By: Crispin Subramanian on 12-07-2024 Hemoglobin (Bld) [Mass/Vol] 9.4 g/dL Low 12.0-15.0 [facility] Immature granulocytes/100 WB C Auto (Bld)Ordered By: Crispin Subramanian on 12-07-2024 Immature granulocytes/100 WBC (Bld) 0.700 % 0.0-0.9 [facility] Comment on above: IG% - Immature Granu locytes (promyelocytes, myelocytes and metamyelocytes) > 1% indicates that a LEFT SHIFT is Present. International normalized rat io (INR) calculationOrdered By: Crispin Subramanian on 12-07-2024 INR Coag (Bld) [Relative time] 1.0 {INR} [facility] - Chemistry and C hemistry - challengeOrdered By: Crispin Subramanian on 12-07-2024 AST [Catalytic activity/Vol] 121 U/L High <32 [facility] MCV (mean corpuscular volume ) determinationOrdered By: Crispinnakita Subramanian on 12-07-2024 MCV (RBC) [Entitic vol] 97.1 fL 81-99 [facility] Mean corpuscular hemoglobin (MCH) determinationOrdered By: Crispinnakita Subramanian on 12-07-2024 MCH (RBC) [Entitic mass] 29.9 pg 27.0-32.0 [facility] Mean corpuscular hemoglobin concentration (MCHC) determinationOrdered By: Crispinnakita Subramanian on 12-07-2024 MCHC (RBC) [Mass/Vol] 30.8 g/dL Low 32-36 [facility] Mean platelet volume determi nationOrdered By: Crispin Subramanian on 12-07-2024 Platelet mean volume (Bld) [Entitic vol] 10.7 fL 6.2-12.0 [facility] Monocyte percentageOrdered B y: Crispin Subramanian on 12-07-2024 Monocytes/100 WBC (Bld) 15.3 % High 0-10 [facility] Neutrophil percentageOrdered By: Crispinnakita Subramanian on 12-07-2024 Neutrophils/100 WBC (Bld) 63.7 % 47-70 [facility] Nucleated red blood cell per centageOrdered By: Crispin Subramanian on 12-07-2024 Nucleated RBC/100 WBC (Bld) [Ratio] 0 % 0-5 [facility] Platelet countOrdered By: Rex Subramanian on 12-07-2024 Platelets (Bld) [#/Vol] 88 10*3/uL Low 150-450 [facility] Platelet estimateOrdered By: Crispin Subramanian on 12-07-2024 Platelets LM Ql (Bld) MOD DEC ADEQ [facility] Potassium measurement (mass/ volume)Ordered By: Crispin Subramanian on 12-07-2024 Potassium (Unsp spec) [Mass/Vol] 3.9 mmol/L 3.3-5.1 [facility] Prothrombin Time w/INRon INR Coag (PPP) [Relative time] 1.0 {INR} Normal [facility] Comment on above: Performed By: #### L 300.3900, L501.6710, L101.9900, L500.4050, L100.0100 #### [facility] [address] [place], [address] PT Coag (PPP) [Time] 13.5 s Normal 11.7-14.9 [facility] Comment on above: Performed By: #### L 300.3900, L501.6710, L101.9900, L500.4050, L100.0100 #### [facility] [address] [place], [address] Prothrombin timeOrdered By: Crispin Subramanian on 12-07-2024 PT Coag (PPP) [Time] 13.5 s 11.7-14.9 [facility] RBC Auto (Bld) [#/Vol]Ordere d By: Crispin Subramanian on 12-07-2024 RBC (Bld) [#/Vol] 3.14 10*6/uL Low 4.2-5.4 [facility] Serum creatinine measurement (mass/volume)Ordered By: Crispin Subramanian on 12-07-2024 Creatinine [Mass/Vol] 1.25 mg/dL High 0.70-1.20 [facility] Serum globulin measurementOr dered By: Crispin Subramanian on 12-07-2024 Globulin (S) [Mass/Vol] 2.9 g/dL 2.2-4.2 [facility] Serum glucose measurement (m ass/volume)Ordered By: Crispin Subramanian on 12-07-2024 Glucose [Mass/Vol] 90 mg/dL 70-99 [facility] Serum or plasma C reactive p rotein measurement (mass/volume)Ordered By: Crispin Subramanian on 12-07-2024 CRP [Mass/Vol] 56.00 mg/L High 0.0-3.0 [facility] Serum or plasma alanine baker otransferase (ALT) measurementOrdered By: Crispin Subramanian on 12-07-2024 ALT [Catalytic activity/Vol] 99 U/L High <35 [facility] Serum or plasma albumin matt urement (mass/volume)Ordered By: Crispin Subramanian on 12-07-2024 Albumin [Mass/Vol] 3.4 g/dL 3.4-4.8 [facility] Serum or plasma albumin/glob ulin mass ratioOrdered By: Crispin Subramanian on 12-07-2024 Albumin/Globulin [Mass ratio] 1.2 {ratio} 0.9-2.4 [facility] Serum or plasma alkaline adama sphatase measurementOrdered By: Crispin Subramanian on 12-07-2024 ALP [Catalytic activity/Vol] 189 U/L High 35-104 [facility] Serum or plasma calcium matt urement (mass/volume)Ordered By: Crispin Subramanian on 12-07-2024 Calcium [Mass/Vol] 10.6 mg/dL 7.6-11.0 [facility] Serum or plasma urea nitroge n measurement (mass/volume)Ordered By: Crispin Subramanian on 12-07-2024 Urea nitrogen [Mass/Vol] 28 mg/dL High 4-19 [facility] Sodium levelOrdered By: Crispin Subramanian on 12-07-2024 Sodium [Moles/Vol] 142 mmol/L 133-145 [facility] Total proteinOrdered By: Crispin Subramanian on 12-07-2024 Protein [Mass/Vol] 6.3 g/dL 5.9-8.4 [facility] White blood cell (WBC) count Ordered By: Crispin Subramanian on 12-07-2024 WBC (Bld) [#/Vol] 4.6 10*3/uL 4.4-11.0 [facility] AATon 11-26-2024 O-4-Aknmrhfuzwu 259 mg/dL High 101-187 [facility] Comment on above: Result Comment: Perf ormed At: [address] [id number] Miguelangel Decker PhD Ph:[phone] Performed By: #### G GT, HBSAG, HBCM, HCV1 #### [place] [address] #### CBC, ESR, LD, 832983, ANEU, CMP, GFR, URIC, ADIFF, ANAIFS #### [place] [address] ENDOon 11-26-2024 tTG IgA 3 units/ml Normal 0-3 [facility] Comment on above: Result Comment: Nega tive 0 - 3 Weak Positive 4 - 10 Positive >10 Tissue Transglutaminase (tTG) has been identified as the endomysial antigen. Studies have demonstr- ated that endomysial IgA antibodies have over 99% specificity for gluten sensitive enteropathy. Performed At: [place] [id number] [place], [place] [id number] Miguelangel Decker PhD Ph:[phone] Performed By: #### G GT, HBSAG, HBCM, HCV1 #### [place] [address] #### CBC, ESR, LD, 701968, ANEU, CMP, GFR, URIC, ADIFF, ANAIFS #### [address] [address] GLIADon 11-26-2024 De[place] IgA Abs 5 units Normal 0-19 [facility] Comment on above: Result Comment: Nega tive 0 - 19 Weak Positive 20 - 30 Moderate to Strong Positive >30 Performed By: #### G GT, HBSAG, HBCM, HCV1 #### [place] [address] #### CBC, ESR, LD, 719743, ANEU, CMP, GFR, URIC, ADIFF, ANAIFS #### [address] [address] Deam Gliad IgG Abs 12 units Normal 0-19 [facility] Comment on above: Result Comment: Nega tive 0 - 19 Weak Positive 20 - 30 Moderate to Strong Positive >30 Performed At: [facility] [address] [id number] Miguelangel Decker PhD Ph:[phone] Performed By: #### G GT, HBSAG, HBCM, HCV1 #### [place] [address] #### CBC, ESR, LD, 158811, ANEU, CMP, GFR, URIC, ADIFF, ANAIFS #### [place] [address] ANAIFSon 11-25-2024 Antinuclear Ab Screen Negative Normal Negative [facility] Comment on above: Result Comment: Anti -nuclear antibody test is used as an aid in diagnosis of systemic autoimmune diseases. Where positive and clinically warranted, follow-up using disease-specific testing is recommended. Low positive titers are not uncommon with advanced age, certain chronic infections, and malignancies among others. Test methodology: Indirect fluorescence immunoassay (IFA) using HEp-2 cells. Performed By: [facility] [address] [place] [address] Cordwainer: Sukhdev Velazquez III, M.D. CLIA#: [id number] Performed By: #### G GT, HBSAG, HBCM, HCV1 #### [place] [address] #### CBC, ESR, LD, 837728, ANEU, CMP, GFR, URIC, ADIFF, ANAIFS #### [address] [address] ENA1on 11-25-2024 Centromere <0.2 Normal <1.0 [facility] Comment on above: Result Comment: Anti -centromere antibody is used as in aid in diagnosis of systemic sclerosis. Clinical correlation is required. Test Methodology: Multiplex flow immunoassay. Performed By: [facility] [address] [place] [address] Cordwainer: Sukhdev Velazquez III, M.D. CLIA#: [id number] Performed By: #### G GT, HBSAG, HBCM, HCV1 #### [address] [address] #### CBC, ESR, LD, 161795, ANEU, CMP, GFR, URIC, ADIFF, ANAIFS #### [address] [address] Centromere Ab Qualitative Negative Normal Negative [facility] Comment on above: Result Comment: Perf ormed By: [place] [address] Cordwainer: Sukhdev Velazquez III, M.D. CLIA#: [id number] Performed By: #### G GT, HBSAG, HBCM, HCV1 #### [place] [address] #### CBC, ESR, LD, 024368, ANEU, CMP, GFR, URIC, ADIFF, ANAIFS #### [address] [address] Chromatin Ab Qualitative Negative Normal Negative [facility] Comment on above: Result Comment: Perf ormed By: [place] [address] Cordwainer: Sukhdev Velazquez III, M.D. CLIA#: [id number] Performed By: #### G GT, HBSAG, HBCM, HCV1 #### [place] [address] #### CBC, ESR, LD, 488610, ANEU, CMP, GFR, URIC, ADIFF, ANAIFS #### [address] [address] Chromatin Antibody <0.2 Normal <1.0 [facility] Comment on above: Result Comment: Test Methodology: Multiplex flow immunoassay. Anti-chromatin antibody is used as an aid in diagnosis of systemic lupus erythematosus. Clinical correlation is required. Test Methodology: Multiplex flow immunoassay. Performed By: [place] [address] Cordwainer: Sukhdev Velazquez III, M.D. CLIA#: [id number] Performed By: #### G GT, HBSAG, HBCM, HCV1 #### [address] [address] #### CBC, ESR, LD, 231269, ANEU, CMP, GFR, URIC, ADIFF, ANAIFS #### [address] [address] ABI 1 Antibody <0.2 Normal <1.0 [facility] Comment on above: Result Comment: Perf ormed By: [place] [address] Cordwainer: Sukhdev Velazquez III, M.D. CLIA#: [id number] Performed By: #### G GT, HBSAG, HBCM, HCV1 #### [place] [address] #### CBC, ESR, LD, 253660, ANEU, CMP, GFR, URIC, ADIFF, ANAIFS #### [address] [address] ABI 1 Antibody Qual Negative Normal Negative [facility] Comment on above: Result Comment: Anti -ABI-1 antibody is used as an aid in diagnosis of polymyositis and dermatomyositis especially with pulmonary involvement. A negative result cannot rule out polymyositis or dermatomyositis. Clinical correlation is required. Test Methodology: Multiplex flow immunoassay. Performed By: [facility] [address] [place] [address] Cordwainer: Sukhdev Velazquez III, M.D. CLIA#: [id number] Performed By: #### G GT, HBSAG, HBCM, HCV1 #### [place] [address] #### CBC, ESR, LD, 594528, ANEU, CMP, GFR, URIC, ADIFF, ANAIFS #### [address] [address] Ribosomal HORSE RIDER <0.2 Normal <1.0 [facility] Comment on above: Result Comment: Perf ormed By: [facility] [address] [place] [address] Cordwainer: Sukhdev Velazquez III, M.D. CLIA#: [id number] Performed By: #### G GT, HBSAG, HBCM, HCV1 #### [address] [address] #### CBC, ESR, LD, 098063, ANEU, CMP, GFR, URIC, ADIFF, ANAIFS #### [address] [address] Ribosomal H[place]ER Qualitative Negative Normal Negative [facility] Comment on above: Result Comment: Anti -Ribosomal RNA (Ribosomal P) antibody is used as an aid in diagnosis of systemic autoimmune diseases especially systemic lupus erythematosus and mixed connective tissue disease. Cross-reactivity with Anti-dodson antibody is not uncommon. Clinical correlation is required. Test Methodology: Multiplex flow immunoassay. Performed By: [facility] [address] [place] [address] Cordwainer: Sukhdev Velazquez III, M.D. CLIA#: [id number] Performed By: #### G GT, HBSAG, HBCM, HCV1 #### [address] [address] #### CBC, ESR, LD, 483330, ANEU, CMP, GFR, URIC, ADIFF, ANAIFS #### [address] [address] HORSE RIDER Antibody <0.2 Normal <1.0 [facility] Comment on above: Result Comment: Anti -HORSE RIDER antibody is used as an aid in diagnosis of systemic autoimmune diseases especially systemic lupus erythematosus and mixed connective tissue disease. Cross-reactivity with Anti-dodson antibody is not uncommon. Clinical correlation is required. Test Methodology: Multiplex flow immunoassay. Performed By: [facility] [place] [address] Cordwainer: Sukhdev Velazquez III, M.D. CLIA#: [id number] Performed By: #### G GT, HBSAG, HBCM, HCV1 #### [address] [address] #### CBC, ESR, LD, 074299, ANEU, CMP, GFR, URIC, ADIFF, ANAIFS #### [address] [address] HORSE RIDER Antibody Qualitative Negative Normal Negative [facility] Comment on above: Result Comment: Perf ormed By: [place] [address] Cordwainer: Sukhdev Velazquez III, M.D. CLIA#: [id number] Performed By: #### G GT, HBSAG, HBCM, HCV1 #### [place] [address] #### CBC, ESR, LD, 256243, ANEU, CMP, GFR, URIC, ADIFF, ANAIFS #### [place] [address] Scleroderma Ab, IgG Qualitative Negative Normal Negative [facility] Comment on above: Result Comment: Perf ormed By: [place] [address] Cordwainer: Sukhdev Velazquez III, M.D. CLIA#: [id number] Performed By: #### G GT, HBSAG, HBCM, HCV1 #### [place] [address] #### CBC, ESR, LD, 778134, ANEU, CMP, GFR, URIC, ADIFF, ANAIFS #### [place] [address] Scleroderma IgG Ab <0.2 Normal <1.0 [facility] Comment on above: Result Comment: Scl- 70/Scleroderma antibody test is used as an aid in diagnosis of systemic sclerosis especially the diffuse cutaneous form. A negative result cannot rule out systemic sclerosis. The final interpretation should consider clinical picture and other test results such as anti-centromere antibody. Test Methodology: Multiplex flow immunoassay. Performed By: [place] [address] Cordwainer: Sukhdev Velazquez III, M.D. CLIA#: [id number] Performed By: #### G GT, HBSAG, HBCM, HCV1 #### [place] [address] #### CBC, ESR, LD, 802974, ANEU, CMP, GFR, URIC, ADIFF, ANAIFS #### [address] [address] Sm Antibody <0.2 Normal <1.0 [facility] Comment on above: Result Comment: Perf ormed By: [place] [address] Cordwainer: Sukhdev Velazquez III, M.D. CLIA#: [id number] Performed By: #### G GT, HBSAG, HBCM, HCV1 #### [place] [address] #### CBC, ESR, LD, 998493, ANEU, CMP, GFR, URIC, ADIFF, ANAIFS #### [place] [address] Sm Antibody Qual Negative Normal Negative [facility] Comment on above: Result Comment: Anti -Sm (Dodson) antibody is used as an aid in diagnosis of systemic lupus erythematosus and its presence is associated with renal disease. A negative result cannot rule out systemic lupus erythematosus. Clinical correlation is required. Test Methodology: Multiplex flow immunoassay. Performed By: [place] [address] Cordwainer: Sukhdev Velazquez III, M.D. CLIA#: [id number] Performed By: #### G GT, HBSAG, HBCM, HCV1 #### [place] [address] #### CBC, ESR, LD, 887450, ANEU, CMP, GFR, URIC, ADIFF, ANAIFS #### [place] [id number] SS-A Antibody <0.2 Normal <1.0 [facility] Comment on above: Result Comment: Test Methodology: Multiplex flow immunoassay. Anti-SSA (anti-Ro) antibody is used as an aid in diagnosis of a variety of systemic autoimmune diseases, Sjogren's syndrome among others. Clinical correlation is required. Test Methodology: Multiplex flow immunoassay. Performed By: [facility] [address] [place] [address] Cordwainer: Sukhdev Velazquez III, M.D. CLIA#: [id number] Performed By: #### G GT, HBSAG, HBCM, HCV1 #### [place] [address] #### CBC, ESR, LD, 446827, ANEU, CMP, GFR, URIC, ADIFF, ANAIFS #### [address] [address] SS-B Antibody <0.2 Normal <1.0 [facility] Comment on above: Result Comment: Anti -SSB (anti-La) antibody is used as an aid in diagnosis of a variety of systemic autoimmune diseases, especially for Sjogren's syndrome and systemic lupus erythematosus. Clinical correlation is required. Test Methodology: Multiplex flow immunoassay. Performed By: [place] [address] Cordwainer: Sukhdev Velazquez III, M.D. CLIA#: [id number] Performed By: #### G GT, HBSAG, HBCM, HCV1 #### [place] [address] #### CBC, ESR, LD, 152962, ANEU, CMP, GFR, URIC, ADIFF, ANAIFS #### [address] [address] SSA Antibody Qualitative Negative Normal Negative [facility] Comment on above: Result Comment: Perf ormed By: [place] [address] Cordwainer: Sukhdev Velazquez III, M.D. CLIA#: [id number] Performed By: #### G GT, HBSAG, HBCM, HCV1 #### [place] [address] #### CBC, ESR, LD, 144849, ANEU, CMP, GFR, URIC, ADIFF, ANAIFS #### [address] [address] SSB Antibody Qualitative Negative Normal Negative [facility] Comment on above: Result Comment: Perf ormed By: [facility] [address] [place] [address] Cordwainer: Sukhdev Velazquez III, M.D. CLIA#: [id number] Performed By: #### G GT, HBSAG, HBCM, HCV1 #### [place] [address] #### CBC, ESR, LD, 138437, ANEU, CMP, GFR, URIC, ADIFF, ANAIFS #### [address] [address] .Auto Diffon 11-24-2024 Basophil, Absolute 0.1 10 3/mcL Normal 0.0-0.3 [facility] Comment on above: Performed By: #### G GT, HBSAG, HBCM, HCV1 #### [place] [address] #### CBC, ESR, LD, 265031, ANEU, CMP, GFR, URIC, ADIFF, ANAIFS #### [address] [address] Basophils/100 WBC (Bld) 1.1 % Normal 0.0-2.5 [facility] Comment on above: Performed By: #### G GT, HBSAG, HBCM, HCV1 #### [place] [address] #### CBC, ESR, LD, 937809, ANEU, CMP, GFR, URIC, ADIFF, ANAIFS #### [address] [address] Eosinophil, Absolute 0.0 10 3/mcL Normal 0.0-0.7 [facility] Comment on above: Performed By: #### G GT, HBSAG, HBCM, HCV1 #### [place] [address] #### CBC, ESR, LD, 531074, ANEU, CMP, GFR, URIC, ADIFF, ANAIFS #### [address] [address] Eosinophils/100 WBC (Bld) 0.6 % Normal 0.0-6.0 [facility] Comment on above: Performed By: #### G GT, HBSAG, HBCM, HCV1 #### [place] [address] #### CBC, ESR, LD, 641713, ANEU, CMP, GFR, URIC, ADIFF, ANAIFS #### [address] [address] Lymphocyte, Absolute 0.9 10 3/mcL Normal 0.9-4.3 [facility] Comment on above: Performed By: #### G GT, HBSAG, HBCM, HCV1 #### [place] [address] #### CBC, ESR, LD, 509460, ANEU, CMP, GFR, URIC, ADIFF, ANAIFS #### [address] [address] Lymphocytes/100 WBC (Bld) 17.5 % Low 20.0-40.0 [facility] Comment on above: Performed By: #### G GT, HBSAG, HBCM, HCV1 #### [place] [address] #### CBC, ESR, LD, 305857, ANEU, CMP, GFR, URIC, ADIFF, ANAIFS #### [address] [address] Monocyte, Absolute 0.6 10 3/mcL Normal 0.1-1.4 [facility] Comment on above: Performed By: #### G GT, HBSAG, HBCM, HCV1 #### [place] [address] #### CBC, ESR, LD, 543478, ANEU, CMP, GFR, URIC, ADIFF, ANAIFS #### [address] [address] Monocytes/100 WBC (Bld) 11.9 % Normal 2.0-13.0 [facility] Comment on above: Performed By: #### G GT, HBSAG, HBCM, HCV1 #### [place] [address] #### CBC, ESR, LD, 246343, ANEU, CMP, GFR, URIC, ADIFF, ANAIFS #### [address] [address] Neutrophils/100 WBC (Bld) 68.9 % Normal 50.0-75.0 [facility] Comment on above: Performed By: #### G GT, HBSAG, HBCM, HCV1 #### [address] [address] #### CBC, ESR, LD, 868529, ANEU, CMP, GFR, URIC, ADIFF, ANAIFS #### [address] [address] .GFRon 11-24-2024 Estimated Glomerular Filtration Rate 36 ml/min/1.73sqm Normal [facility] Comment on above: Result Comment: Stages [...] #### G GT, HBSAG, HBCM, HCV1 #### [place] [address] #### CBC, ESR, LD, 157030, ANEU, CMP, GFR, URIC, ADIFF, ANAIFS #### [address] [address] .NEUABSon 11-24-2024 Neutrophil, Absolute 3.5 10 3/mcL Normal 2.3-8.1 [facility] Comment on above: Performed By: #### G GT, HBSAG, HBCM, HCV1 #### [place] [id number] #### CBC, ESR, LD, 161907, ANEU, CMP, GFR, URIC, ADIFF, ANAIFS #### [address] [address] AMYon 11-24-2024 Amylase [Catalytic activity/Vol] 57 U/L Normal 25-115 [facility] Comment on above: Performed By: #### G GT, HBSAG, HBCM, HCV1 #### [address] [address] #### CBC, ESR, LD, 191358, ANEU, CMP, GFR, URIC, ADIFF, ANAIFS #### [address] [address] [facility] Erythrocyte distribution width (RBC) [Ratio] 16.7 % High 11.5-15.5 [facility] Comment on above: Performed By: #### G GT, HBSAG, HBCM, HCV1 #### [address] [address] #### CBC, ESR, LD, 751419, ANEU, CMP, GFR, URIC, ADIFF, ANAIFS #### [address] [address] Hematocrit (Bld) [Volume fraction] 30.3 % Low 34.0-46.0 [facility] Comment on above: Performed By: #### G GT, HBSAG, HBCM, HCV1 #### [address] [address] #### CBC, ESR, LD, 537621, ANEU, CMP, GFR, URIC, ADIFF, ANAIFS #### [address] [address] Hgb 10.1 G/dL Low 12.0-16.0 [facility] Comment on above: Performed By: #### G GT, HBSAG, HBCM, HCV1 #### [address] [address] #### CBC, ESR, LD, 889187, ANEU, CMP, GFR, URIC, ADIFF, ANAIFS #### [address] [address] MCH (RBC) [Entitic mass] 30.4 pg Normal 27.0-33.0 [facility] Comment on above: Performed By: #### G GT, HBSAG, HBCM, HCV1 #### [place] [address] #### CBC, ESR, LD, 694876, ANEU, CMP, GFR, URIC, ADIFF, ANAIFS #### [address] [address] MCHC 33.5 G/dL Normal 32.0-36.0 [facility] Comment on above: Performed By: #### G GT, HBSAG, HBCM, HCV1 #### [place] [address] #### CBC, ESR, LD, 822815, ANEU, CMP, GFR, URIC, ADIFF, ANAIFS #### [address] [address] MCV (RBC) [Entitic vol] 90.7 fL Normal 80.0-99.0 [facility] Comment on above: Performed By: #### G GT, HBSAG, HBCM, HCV1 #### [place] [address] #### CBC, ESR, LD, 876381, ANEU, CMP, GFR, URIC, ADIFF, ANAIFS #### [address] [address] Platelet 112 10 3/mcL Low 150-450 [facility] Comment on above: Performed By: #### G GT, HBSAG, HBCM, HCV1 #### [place] [address] #### CBC, ESR, LD, 603667, ANEU, CMP, GFR, URIC, ADIFF, ANAIFS #### [address] [address] Platelet mean volume (Bld) [Entitic vol] 8.5 fL Normal 6.6-10.5 [facility] Comment on above: Performed By: #### G GT, HBSAG, HBCM, HCV1 #### [place] [address] #### CBC, ESR, LD, 682280, ANEU, CMP, GFR, URIC, ADIFF, ANAIFS #### [address] [address] RBC 3.34 10 6/mcL Low 4.10-5.30 [facility] Comment on above: Performed By: #### G GT, HBSAG, HBCM, HCV1 #### [place] [address] #### CBC, ESR, LD, 915059, ANEU, CMP, GFR, URIC, ADIFF, ANAIFS #### [address] [address] WBC 5.1 10 3/mcL Normal 4.5-10.8 [facility] Comment on above: Performed By: #### G GT, HBSAG, HBCM, HCV1 #### [place] [address] #### CBC, ESR, LD, 146127, ANEU, CMP, GFR, URIC, ADIFF, ANAIFS #### [address] [address] CMPon 11-24-2024 Albumin Level 3.1 G/dL Low 3.4-4.8 [facility] Comment on above: Performed By: #### G GT, HBSAG, HBCM, HCV1 #### [place] [address] #### CBC, ESR, LD, 896170, ANEU, CMP, GFR, URIC, ADIFF, ANAIFS #### [address] [address] Albumin/Globulin [Mass ratio] 0.8 {ratio} Low 1.1-2.5 [facility] Comment on above: Performed By: #### G GT, HBSAG, HBCM, HCV1 #### [place] [address] #### CBC, ESR, LD, 842361, ANEU, CMP, GFR, URIC, ADIFF, ANAIFS #### [address] [address] ALP [Catalytic activity/Vol] 165 U/L High 40-135 [facility] Comment on above: Performed By: #### G GT, HBSAG, HBCM, HCV1 #### [place] [address] #### CBC, ESR, LD, 870287, ANEU, CMP, GFR, URIC, ADIFF, ANAIFS #### [address] [address] ALT [Catalytic activity/Vol] 127 U/L High 14-59 [facility] Comment on above: Performed By: #### G GT, HBSAG, HBCM, HCV1 #### [place] [address] #### CBC, ESR, LD, 654801, ANEU, CMP, GFR, URIC, ADIFF, ANAIFS #### [place] [address] AST [Catalytic activity/Vol] 145 U/L High 10-40 [facility] Comment on above: Performed By: #### G GT, HBSAG, HBCM, HCV1 #### [place] [address] #### CBC, ESR, LD, 206140, ANEU, CMP, GFR, URIC, ADIFF, ANAIFS #### [address] [address] Bili Total 0.7 mg/dL Normal 0.2-1.0 [facility] Comment on above: Result Comment: Use of this assay is not recommended for patients undergoing treatment with eltrombopag due to the potential for falsely elevated results. Performed By: #### G GT, HBSAG, HBCM, HCV1 #### [place] [address] #### CBC, ESR, LD, 276987, ANEU, CMP, GFR, URIC, ADIFF, ANAIFS #### [place] [id number] BUN/Creatinine Ratio 27 ratio Normal 7-27 [facility] Comment on above: Performed By: #### G GT, HBSAG, HBCM, HCV1 #### [place] [address] #### CBC, ESR, LD, 239686, ANEU, CMP, GFR, URIC, ADIFF, ANAIFS #### [address] [address] Calcium [Mass/Vol] 10.8 mg/dL High 8.4-10.2 [facility] Comment on above: Performed By: #### G GT, HBSAG, HBCM, HCV1 #### [place] [address] #### CBC, ESR, LD, 750752, ANEU, CMP, GFR, URIC, ADIFF, ANAIFS #### [address] [address] Chloride [Moles/Vol] 104 mmol/L Normal 98-107 [facility] Comment on above: Performed By: #### G GT, HBSAG, HBCM, HCV1 #### [place] [address] #### CBC, ESR, LD, 965227, ANEU, CMP, GFR, URIC, ADIFF, ANAIFS #### [address] [address] CO2 [Moles/Vol] 32 mmol/L High 23-31 [facility] Comment on above: Performed By: #### G GT, HBSAG, HBCM, HCV1 #### [place] [address] #### CBC, ESR, LD, 792357, ANEU, CMP, GFR, URIC, ADIFF, ANAIFS #### [address] [address] Creatinine [Mass/Vol] 1.58 mg/dL High 0.51-0.95 [facility] Comment on above: Performed By: #### G GT, HBSAG, HBCM, HCV1 #### [place] [address] #### CBC, ESR, LD, 179838, ANEU, CMP, GFR, URIC, ADIFF, ANAIFS #### [address] [address] Electrolyte Balance 8.0 mEq/L Normal 4.0-15.0 [facility] Comment on above: Performed By: #### G GT, HBSAG, HBCM, HCV1 #### [place] [address] #### CBC, ESR, LD, 221707, ANEU, CMP, GFR, URIC, ADIFF, ANAIFS #### [address] [address] Globulin 3.9 G/dL Normal 2.7-4.4 [facility] Comment on above: Performed By: #### G GT, HBSAG, HBCM, HCV1 #### [place] [address] #### CBC, ESR, LD, 892533, ANEU, CMP, GFR, URIC, ADIFF, ANAIFS #### [address] [address] Glucose [Mass/Vol] 98 mg/dL Normal 80-115 [facility] Comment on above: Performed By: #### G GT, HBSAG, HBCM, HCV1 #### [place] [address] #### CBC, ESR, LD, 607969, ANEU, CMP, GFR, URIC, ADIFF, ANAIFS #### [address] [address] Potassium [Moles/Vol] 3.9 mmol/L Normal 3.5-5.1 [facility] Comment on above: Performed By: #### G GT, HBSAG, HBCM, HCV1 #### [place] [address] #### CBC, ESR, LD, 037185, ANEU, CMP, GFR, URIC, ADIFF, ANAIFS #### [address] [address] Sodium [Moles/Vol] 144 mmol/L Normal 136-145 [facility] Comment on above: Performed By: #### G GT, HBSAG, HBCM, HCV1 #### [address] [address] #### CBC, ESR, LD, 002707, ANEU, CMP, GFR, URIC, ADIFF, ANAIFS #### [address] [address] Total Protein 7.0 G/dL Normal 6.4-8.2 [facility] Comment on above: Performed By: #### G GT, HBSAG, HBCM, HCV1 #### [place] [address] #### CBC, ESR, LD, 767100, ANEU, CMP, GFR, URIC, ADIFF, ANAIFS #### [address] [address] Urea nitrogen [Mass/Vol] 43 mg/dL High 7-18 [facility] Comment on above: Performed By: #### G GT, HBSAG, HBCM, HCV1 #### [place] [address] #### CBC, ESR, LD, 278049, ANEU, CMP, GFR, URIC, ADIFF, ANAIFS #### [address] [address] ESRon 11-24-2024 Erythrocyte Sed Rate 20 mm/hr Normal 0-30 [facility] Comment on above: Performed By: #### G GT, HBSAG, HBCM, HCV1 #### [place] [address] #### CBC, ESR, LD, 802528, ANEU, CMP, GFR, URIC, ADIFF, ANAIFS #### [address] [address] GGTon 11-24-2024 Gamma GT 66 U/L High 5-55 [facility] Comment on above: Performed By: #### G GT, HBSAG, HBCM, HCV1 #### [place] [address] #### CBC, ESR, LD, 324941, ANEU, CMP, GFR, URIC, ADIFF, ANAIFS #### [address] [address] HBCMon 11-24-2024 Hep B Core IgM Ab Non-Reactive Normal Non-Reactive [facility] Comment on above: Performed By: #### G GT, HBSAG, HBCM, HCV1 #### [place] [address] #### CBC, ESR, LD, 757357, ANEU, CMP, GFR, URIC, ADIFF, ANAIFS #### [address] [address] Hep B Core IgM Ab Int See Interp Normal [facility] Comment on above: Result Comment: Clinical Interpretation: Samples with a value < 0.80 Index are considered nonreactive (negative) for IgM antibodies to hepatitis B core antigen. Performed By: #### G GT, HBSAG, HBCM, HCV1 #### [place] [address] #### CBC, ESR, LD, 226532, ANEU, CMP, GFR, URIC, ADIFF, ANAIFS #### [address] [address] HBSAGon 11-24-2024 Hep B Surf Ag Non-Reactive Normal Non-Reactive [facility] Comment on above: Performed By: #### G GT, HBSAG, HBCM, HCV1 #### [place] [address] #### CBC, ESR, LD, 348590, ANEU, CMP, GFR, URIC, ADIFF, ANAIFS #### [address] [address] HCVon 11-24-2024 Hep C Ab Non-Reactive Normal Non-Reactive [facility] Comment on above: Performed By: #### G GT, HBSAG, HBCM, HCV1 #### [place] [address] #### CBC, ESR, LD, 827935, ANEU, CMP, GFR, URIC, ADIFF, ANAIFS #### [place] [address] [place], [place] [address] Hep C Ab Int See Interp Normal [facility] Comment on above: Result Comment: Clinical [...] #### G GT, HBSAG, HBCM, HCV1 #### [facility] [address] [place] [address] #### CBC, ESR, LD, 865530, ANEU, CMP, GFR, URIC, ADIFF, ANAIFS #### [place] [address] [place], [place] [address] LABORATORYOrdered By: Kellie Alejandra on 11-24-2024 Albumin DL <= 20 mg/L (U) [Mass/Vol] 119.7 mg/L Invalid Interpretation Code AO ADM SS Albumin/Creatinine DL <= 20 mg/L (U) [Mass ratio] 169 mg/G High 0 - 30 mg/G AO Chemistry S Creatinine (U) [Mass/Vol] 71.0 mg/dL Invalid Interpretation Code AO ADM SS LABORATORYOrdered By: [facility] on 11-24-2024 25-hydroxyvitamin D3 [Mass/Vol] 86.5 [...] LDHon 11-24-2024 LDH 362 U/L High 81-234 [facility] Comment on above: Performed By: #### G GT, HBSAG, HBCM, HCV1 #### [address] [address] #### CBC, ESR, LD, 941650, ANEU, CMP, GFR, URIC, ADIFF, ANAIFS #### [address] [address] LIPon 11-24-2024 Lipase Level 40 U/L Normal 16-77 [facility] Comment on above: Performed By: #### G GT, HBSAG, HBCM, HCV1 #### [place] [address] #### CBC, ESR, LD, 019990, ANEU, CMP, GFR, URIC, ADIFF, ANAIFS #### [address] [address] MALBRon 11-24-2024 U Creatinine 71.0 mg/dL Normal [facility] Comment on above: Performed By: #### G GT, HBSAG, HBCM, HCV1 #### [place] [address] #### CBC, ESR, LD, 939028, ANEU, CMP, GFR, URIC, ADIFF, ANAIFS #### [address] [address] U Microalb 119.7 mg/L Normal [facility] Comment on above: Performed By: #### G GT, HBSAG, HBCM, HCV1 #### [place] [address] #### CBC, ESR, LD, 598020, ANEU, CMP, GFR, URIC, ADIFF, ANAIFS #### [address] [address] U Ratio Alb/Cre 169 mg/G High 0-30 [facility] Comment on above: Performed By: #### G GT, HBSAG, HBCM, HCV1 #### [place] [address] #### CBC, ESR, LD, 422070, ANEU, CMP, GFR, URIC, ADIFF, ANAIFS #### [address] [address] TSHon 11-24-2024 TSH Qn 1.71 m[IU]/L Normal 0.36-3.74 [facility] Comment on above: Performed By: #### G GT, HBSAG, HBCM, HCV1 #### [address] [address] #### CBC, ESR, LD, 522060, ANEU, CMP, GFR, URIC, ADIFF, ANAIFS #### [address] [address] URICon 11-24-2024 Uric Acid Lvl 10.8 mg/dL High 2.6-6.2 [facility] Comment on above: Performed By: #### G GT, HBSAG, HBCM, HCV1 #### [place] [address] #### CBC, ESR, LD, 826719, ANEU, CMP, GFR, URIC, ADIFF, ANAIFS #### [address] [address] VIDHon 11-24-2024 Vit. D 25-Hydroxy 86.5 ng/mL Normal [facility] Comment on above: Result Comment: Inte rpretive Values Based on Total 25(OH) Vitamin D: Deficient <20 ng/mL Insufficient 20 - <30 ng/mL Sufficient 30-100 ng/mL Performed By: #### G GT, HBSAG, HBCM, HCV1 #### [place] [address] #### CBC, ESR, LD, 878790, ANEU, CMP, GFR, URIC, ADIFF, ANAIFS #### [address] [address] Celiac Disease Profileon ENDOMYSIAL IGA Negative Normal Negative [facility] Comment on above: Performed By: #### L 300.3900, L300.4310, L101.9900, L3410.2400, L100.0500, L501.6710, L500.4050 #### [facility] [address] [place], [place], [id number] IMMUNOGLOB A QN 193 mg/dL Normal 87-352 [facility] Comment on above: Result Comment: Perf ormed at: - [facility] [address] [id number] Cordwainer: Jeronimo Means PhD, Phone: [phone] Performed By: #### L 300.3900, L300.4310, L101.9900, L3410.2400, L100.0500, L501.6710, L500.4050 #### [facility] [address] [place], [address] tTG IGA 3 U/mL Normal 0-3 [facility] Comment on above: Result Comment: Nega tive 0 - 3 Weak Positive 4 - 10 Positive >10 Tissue Transglutaminase (tTG) has been identified as the endomysial antigen. Studies have demonstr- ated that endomysial IgA antibodies have over 99% specificity for gluten sensitive enteropathy. Performed By: #### L 300.3900, L300.4310, L101.9900, L3410.2400, L100.0500, L501.6710, L500.4050 #### [facility] [address] [place], [place], [phone] Activated partial thrombopla stin time (aPTT) in platelet poor plasma by coagulation aOrdered By: Jeronimo Perez on 11-17-2024 aPTT Coag (PPP) [Time] 33.8 s 24.1-36.2 [facility] Anion gap in Serum or Plasma Ordered By: Jeronimo Perez on 11-17-2024 Anion gap [Moles/Vol] 16 mmol/L High 5-15 [facility] Automated blood erythrocyte countOrdered By: Jeronimo Perez on 11-17-2024 RBC (Bld) [#/Vol] 3.39 10*6/uL Low 4.2-5.4 [facility] Comment on above: Performed By: #### L 300.3900, L300.4310, L101.9900, L3410.2400, L100.0500, L501.6710, L500.4050 #### [facility] [address] [place], [place], [phone] Automated blood hematocrit ( percentage)Ordered By: Jeronimo Perez on 11-17-2024 Hematocrit (Bld) [Volume fraction] 32.0 % Low 37-47 [facility] Comment on above: Performed By: #### L 300.3900, L300.4310, L101.9900, L3410.2400, L100.0500, L501.6710, L500.4050 #### [facility] [address] [place], [place], [phone] BUN/creatinine ratioOrdered By: Jeronimo Perez on 11-17-2024 Urea nitrogen/Creatinine [Mass ratio] 18.6 mg/mg 10-20 [facility] Bilirubin, totalOrdered By: Jeronimo Perez on 11-17-2024 Bilirubin [Mass/Vol] 0.59 mg/dL 0.00-1.30 [facility] CBC-Complete Blood Cnt No Di ffon 11-17-2024 RDW SD 57.1 fl High 35.1-43.9 [facility] Comment on above: Performed By: #### L 300.3900, L300.4310, L101.9900, L3410.2400, L100.0500, L501.6710, L500.4050 #### [facility] [address] [place], [place], [phone] CRPon 11-17-2024 C-REACTIVE PROT 128.00 mg/L High 0.0-3.0 [facility] Comment on above: Performed By: #### L 300.3900, L300.4310, L101.9900, L3410.2400, L100.0500, L501.6710, L500.4050 #### [facility] [address] [place], [place], [address] Carbon dioxide, total [Moles /volume] in Central venous bloodOrdered By: Jeronimo Perez on 11-17-2024 CO2 [Moles/Vol] 26.0 mmol/L 21.0-32.0 [facility] Chloride assayOrdered By: Belén Perez on 11-17-2024 Chloride [Moles/Vol] 100 mmol/L 98-108 [facility] Comprehensive Metabolic Prof ilon 11-17-2024 Chloride [Moles/Vol] 100 mmol/L Normal 98-108 [facility] Comment on above: Performed By: #### L 300.3900, L300.4310, L101.9900, L3410.2400, L100.0500, L501.6710, L500.4050 #### [facility] [address] [place], [place], [phone] (246) CO2 [Moles/Vol] 26.0 mmol/L Normal 21.0-32.0 [facility] Comment on above: Performed By: #### L 300.3900, L300.4310, L101.9900, L3410.2400, L100.0500, L501.6710, L500.4050 #### [facility] [address] [place], [address] GAP 16 High 5-15 [facility] Comment on above: Performed By: #### L 300.3900, L300.4310, L101.9900, L3410.2400, L100.0500, L501.6710, L500.4050 #### [facility] [address] [place], [address] Potassium [Moles/Vol] 3.5 mmol/L Normal 3.3-5.1 [facility] Comment on above: Performed By: #### L 300.3900, L300.4310, L101.9900, L3410.2400, L100.0500, L501.6710, L500.4050 #### [facility] [address] [place], [address] Sodium [Moles/Vol] 142 mmol/L Normal 133-145 [facility] Comment on above: Performed By: #### L 300.3900, L300.4310, L101.9900, L3410.2400, L100.0500, L501.6710, L500.4050 #### [facility] [address] [place], [address] Albumin [Mass/Vol] 3.7 g/dL Normal 3.4-4.8 [facility] Comment on above: Performed By: #### L 300.3900, L300.4310, L101.9900, L3410.2400, L100.0500, L501.6710, L500.4050 #### [facility] [address] [place], [address] Albumin/Globulin [Mass ratio] 1.2 {ratio} Normal 0.9-2.4 [facility] Comment on above: Performed By: #### L 300.3900, L300.4310, L101.9900, L3410.2400, L100.0500, L501.6710, L500.4050 #### [facility] [address] [place], [address] ALK PHOS 131 U/L High 35-104 [facility] Comment on above: Performed By: #### L 300.3900, L300.4310, L101.9900, L3410.2400, L100.0500, L501.6710, L500.4050 #### [facility] [address] [place], [address] ALT [Catalytic activity/Vol] 97 U/L High <=34 [facility] Comment on above: Performed By: #### L 300.3900, L300.4310, L101.9900, L3410.2400, L100.0500, L501.6710, L500.4050 #### [facility] [address] [place], [address] AST [Catalytic activity/Vol] 110 U/L High <=31 [facility] Comment on above: Performed By: #### L 300.3900, L300.4310, L101.9900, L3410.2400, L100.0500, L501.6710, L500.4050 #### [facility] [address] [place], [address] Bilirubin [Mass/Vol] 0.59 mg/dL Normal 0.00-1.30 [facility] Comment on above: Performed By: #### L 300.3900, L300.4310, L101.9900, L3410.2400, L100.0500, L501.6710, L500.4050 #### [facility] [address] [place], [address] BUN/CRE 18.6 RATIO Normal 10-20 [facility] Comment on above: Performed By: #### L 300.3900, L300.4310, L101.9900, L3410.2400, L100.0500, L501.6710, L500.4050 #### [facility] [address] [place], [address] Calcium [Mass/Vol] 11.9 mg/dL High 7.6-11.0 [facility] Comment on above: Performed By: #### L 300.3900, L300.4310, L101.9900, L3410.2400, L100.0500, L501.6710, L500.4050 #### [facility] [address] [place], [address] Creatinine [Mass/Vol] 2.07 mg/dL High 0.70-1.20 [facility] Comment on above: Performed By: #### L 300.3900, L300.4310, L101.9900, L3410.2400, L100.0500, L501.6710, L500.4050 #### [facility] [address] [place], [address] GFR/1.73 sq M.predicted among non-blacks MDRD (S/P/Bld) [Vol rate/Area] 26 mL/min/{1.73_m2} Low >60 [facility] Comment on above: Result Comment: mL/m in/1.73m2 CKD-EPI Creatinine Equation (2020) Performed By: #### L 300.3900, L300.4310, L101.9900, L3410.2400, L100.0500, L501.6710, L500.4050 #### [facility] [address] [place], [address] Globulin (S) [Mass/Vol] 3.2 g/dL Normal 2.2-4.2 [facility] Comment on above: Performed By: #### L 300.3900, L300.4310, L101.9900, L3410.2400, L100.0500, L501.6710, L500.4050 #### [facility] [address] [place], [address] Glucose [Mass/Vol] 106 mg/dL High 70-99 [facility] Comment on above: Performed By: #### L 300.3900, L300.4310, L101.9900, L3410.2400, L100.0500, L501.6710, L500.4050 #### [facility] [address] [place], [address] T PROT 6.9 g/dL Normal 5.9-8.4 [facility] Comment on above: Performed By: #### L 300.3900, L300.4310, L101.9900, L3410.2400, L100.0500, L501.6710, L500.4050 #### [facility] [address] [place], [address] Urea nitrogen [Mass/Vol] 39 mg/dL High 4-19 [facility] Comment on above: Performed By: #### L 300.3900, L300.4310, L101.9900, L3410.2400, L100.0500, L501.6710, L500.4050 #### [facility] [address] [place], [address] Erythrocyte Sed Rateon 11-17 SED RATE 18 mm/hr Normal 0-30 [facility] Comment on above: Performed By: #### L 300.3900, L300.4310, L101.9900, L3410.2400, L100.0500, L501.6710, L500.4050 #### [facility] [address] [place], [address] Erythrocyte distribution wid th ratioOrdered By: Jeronimo Perez on 11-17-2024 Erythrocyte distribution width (RBC) [Ratio] 16.5 % High 11.6-14.6 [facility] Comment on above: Performed By: #### L 300.3900, L300.4310, L101.9900, L3410.2400, L100.0500, L501.6710, L500.4050 #### [facility] [address] [place], [address] Erythrocyte distribution wid th standard deviationOrdered By: Jeronimo Perez on 11-17-2024 Erythrocyte distribution width (RBC) [Ratio] 57.1 fl High 35.1-43.9 [facility] Erythrocyte sedimentation ra teOrdered By: Jeronimo Perez on 11-17-2024 ESR (Bld) [Velocity] 18 mm/h 0-30 [facility] Glomerular filtration rate ( GFR) estimation/1.73 sq m using serum, plasma, or whole bOrdered By: Jeronimo Perez on 11-17-2024 GFR/1.73 sq M.predicted among non-blacks MDRD (S/P/Bld) [Vol rate/Area] 26 mL/min/{1.73_m2} Low >60 [facility] Comment on above: mL/min/1.73m2 CKD-EP I Creatinine Equation (2020) Hemoglobin measurementOrdere d By: Jeronimo Perez on 11-17-2024 Hemoglobin (Bld) [Mass/Vol] 10.2 g/dL Low 12.0-15.0 [facility] Comment on above: Performed By: #### L 300.3900, L300.4310, L101.9900, L3410.2400, L100.0500, L501.6710, L500.4050 #### [facility] [address] [place], [address] International normalized rat io (INR) calculationOrdered By: Jeronimo Perez on 11-17-2024 INR Coag (Bld) [Relative time] 1.0 {INR} [facility] - Chemistry and C hemistry - challengeOrdered By: Jeronimo Perez on 11-17-2024 AST [Catalytic activity/Vol] 110 U/L High <32 [facility] MCV (mean corpuscular volume ) determinationOrdered By: Jeronimo Perez on 11-17-2024 MCV (RBC) [Entitic vol] 94.4 fL Normal 81-99 [facility] Comment on above: Performed By: #### L 300.3900, L300.4310, L101.9900, L3410.2400, L100.0500, L501.6710, L500.4050 #### [facility] [address] [place], [address] Mean corpuscular hemoglobin (MCH) determinationOrdered By: Jeronimo Perez on 11-17-2024 MCH (RBC) [Entitic mass] 30.1 pg Normal 27.0-32.0 [facility] Comment on above: Performed By: #### L 300.3900, L300.4310, L101.9900, L3410.2400, L100.0500, L501.6710, L500.4050 #### [facility] [address] [place], [address] Mean corpuscular hemoglobin concentration (MCHC) determinationOrdered By: Jeronimo Perez on 11-17-2024 MCHC (RBC) [Mass/Vol] 31.9 g/dL Low 32-36 [facility] Comment on above: Performed By: #### L 300.3900, L300.4310, L101.9900, L3410.2400, L100.0500, L501.6710, L500.4050 #### [facility] [address] [place], [address] Mean platelet volume determi nationOrdered By: Jeronimo Perez on 11-17-2024 Platelet mean volume (Bld) [Entitic vol] 12.6 fL High 6.2-12.0 [facility] Comment on above: Performed By: #### L 300.3900, L300.4310, L101.9900, L3410.2400, L100.0500, L501.6710, L500.4050 #### [facility] [address] [place], [address] Partial Thromboplast Timeon 11-17-2024 aPTT Coag (Bld) [Time] 33.8 s Normal 24.1-36.2 [facility] Comment on above: Performed By: #### L 300.3900, L300.4310, L101.9900, L3410.2400, L100.0500, L501.6710, L500.4050 #### [facility] [address] [place], [address] (846) Platelet countOrdered By: Belén Perez on 11-17-2024 Platelets (Bld) [#/Vol] 108 10*3/uL Low 150-450 [facility] Comment on above: Performed By: #### L 300.3900, L300.4310, L101.9900, L3410.2400, L100.0500, L501.6710, L500.4050 #### [facility] [address] [place], [place], [id number] Potassium measurement (mass/ volume)Ordered By: Jeronimo Perez on 11-17-2024 Potassium (Unsp spec) [Mass/Vol] 3.5 mmol/L 3.3-5.1 [facility] Prothrombin Time w/INRon INR Coag (PPP) [Relative time] 1.0 {INR} Normal [facility] Comment on above: Performed By: #### L 300.3900, L300.4310, L101.9900, L3410.2400, L100.0500, L501.6710, L500.4050 #### [facility] [address] [place], [place], [id number] PT Coag (PPP) [Time] 13.2 s Normal 11.7-14.9 [facility] Comment on above: Performed By: #### L 300.3900, L300.4310, L101.9900, L3410.2400, L100.0500, L501.6710, L500.4050 #### [facility] [address] [place], [place], [phone] Prothrombin timeOrdered By: Jeronimo Perez on 11-17-2024 PT Coag (PPP) [Time] 13.2 s 11.7-14.9 [facility] Serum creatinine measurement (mass/volume)Ordered By: Jeronimo Perez on 11-17-2024 Creatinine [Mass/Vol] 2.07 mg/dL High 0.70-1.20 [facility] Serum globulin measurementOr dered By: Jeronimo Perez on 11-17-2024 Globulin (S) [Mass/Vol] 3.2 g/dL 2.2-4.2 [facility] Serum glucose measurement (m ass/volume)Ordered By: Jeronimo Perez on 11-17-2024 Glucose [Mass/Vol] 106 mg/dL High 70-99 [facility] Serum or plasma C reactive p rotein measurement (mass/volume)Ordered By: Jeronimo Perez on 11-17-2024 CRP [Mass/Vol] 128.00 mg/L High 0.0-3.0 [facility] Serum or plasma IgA measurem ent (mass/volume)Ordered By: Jeronimo Perez on 11-17-2024 IgA [Mass/Vol] 193 mg/dL 87-352 [facility] Comment on above: Performed at: [place] [id number] Director: Jeronimo Means PhD, Phone: [phone] Serum or plasma alanine baker otransferase (ALT) measurementOrdered By: Jeronimo Perez on 11-17-2024 ALT [Catalytic activity/Vol] 97 U/L High <35 [facility] Serum or plasma albumin matt urement (mass/volume)Ordered By: Jeronimo Perez on 11-17-2024 Albumin [Mass/Vol] 3.7 g/dL 3.4-4.8 [facility] Serum or plasma albumin/glob ulin mass ratioOrdered By: Jeronimo Perez on 11-17-2024 Albumin/Globulin [Mass ratio] 1.2 {ratio} 0.9-2.4 [facility] Serum or plasma alkaline adama sphatase measurementOrdered By: Jeronimo Perez on 11-17-2024 ALP [Catalytic activity/Vol] 131 U/L High 35-104 [facility] Serum or plasma calcium matt urement (mass/volume)Ordered By: Jeronimo Perez on 11-17-2024 Calcium [Mass/Vol] 11.9 mg/dL High 7.6-11.0 [facility] Serum or plasma urea nitroge n measurement (mass/volume)Ordered By: Jeronimo Perez on 11-17-2024 Urea nitrogen [Mass/Vol] 39 mg/dL High 4-19 [facility] Serum tissue transglutaminas e (tTG) IgA antibody assay (units/volume)Ordered By: Jeronimo Perez on 11-17-2024 tTG IgA Qn (S) 3 U/mL 0-3 [facility] Comment on above: Negative 0 - 3 Weak Positive 4 - 10 Positive >10 Tissue Transglutaminase (tTG) has been identified as the endomysial antigen. Studies have demonstr- ated that endomysial IgA antibodies have over 99% specificity for gluten sensitive enteropathy. Sodium levelOrdered By: Bess Hsiehspike on 11-17-2024 Sodium [Moles/Vol] 142 mmol/L 133-145 [facility] Total proteinOrdered By: Silver Perez on 11-17-2024 Protein [Mass/Vol] 6.9 g/dL 5.9-8.4 [facility] White blood cell (WBC) count Ordered By: Jeronimo Perez on 11-17-2024 WBC (Bld) [#/Vol] 6.7 10*3/uL Normal 4.4-11.0 [facility] Comment on above: Performed By: #### L 300.3900, L300.4310, L101.9900, L3410.2400, L100.0500, L501.6710, L500.4050 #### [facility] [address] [place], [address] CT ABDOMEN/PELVIS W/ CONTRAS Ton 08-27-2024 CT [...] a (more content not included)... Normal [facility] Bacteria Ur Culton 5 Bacteria identified Cx Nom (U) ORGANISM ID: 1 10,000 -<50,000 CFU/ml Mixed microbiota No further workup. Mixed microbiota can be due to???urine???contamina tion with skin bacteria at time of collection or presence of a long-term urinary catheter. If a new culture is needed, please consider re-education of the patient on proper midstream co llection technique or straight catheterization for???urine???collecti on. Normal [facility] Comment on above: Performed By: #### 6 30-4 #### [facility] CLIA [id number] [address] [place] [address] [place] CNOVon 08-22-2024 CNOV Office Visit ([facility] ) KERRY MIRELES ([id number]) 1955 F Date Time Provider Department 08/22/24 1:45 PM TO ALCARAZ [facility] During your visit today, we recorded the following information about you: Temperature Pulse Respiration Blood pressure 98.9 degrees 94/minute 16/minute 122/68 Weight 48.7 kg To Alcaraz APRN.[facility] 08/22/2024 2:21 PM Signed [facility] Subjective Kerry Mireles is a 68 year old female c/o [...] R10.9 - Increase fiber in diet - [place] low residue diet - IBUPROFEN 400 MG TABLET - follow up with PCP if not improving, continue plan for CT scan this week To Alcaraz APRN.PEDRO -I have reviewed and upda (more content not included)... Normal [facility] UA DIP, URINE (POC)on 2024 BILIRUBIN UA (POCT) Small Abnormal Negative [facility] CLARITY UA (POCT) Clear [facility] COLOR UA (POCT) Yellow [facility] GLUCOSE UA (POCT) Negative Negative mg/dL [facility] Hemoglobin Ql (U) Negative Negative [facility] Interpretation and review of laboratory results Abnormal [facility] KETONE UA (POCT) Trace Negative mg/dL [facility] LEUKOCYTES UA (POCT) Trace Abnormal Negative [facility] NITRITE UA (POCT) Negative Negative [facility] PH UA (POCT) 5.5 4.5 - 8.0 [facility] Protein Ql (U) Negative Negative mg/dL [facility] SPECIFIC GRAVITY UA (POCT) 1.025 1.005 - 1.030 [facility] UROBILINOGEN UA (POCT) 0.2 Meaghan l E.U./dL [facility] Location:[facility], [address] [place] [address], [place], [place], [id number] [place] [address] POINT OF CARE [facility] LABORATORYOrdered By: SYSTEM SYSTEM on 11-19-2023 [...] calculated value from Hemoglobin A1C and is liability claims representative of the average blood glucose level [...] Reason for Exam: fall with headstrike FINDINGS: Weight Loss Sales Consultant (topogram) images: Unremarkable BRAIN/VENTRICLES: No evidence of [...] 08/30/2023 3:13:29 PM Ordering Provider: HEAVEN Jay [facility] ([place]) Darian 09-18-2022 U Creatinine 148.2 mg/dL High 28.0-117.0 [facility] [place] Comment on above: Performed By: #### M ALBR #### [address] [address] U Microalb 2631 mcg/dL Normal [facility] [place] Comment on above: Performed By: #### M ALBR #### [facility] [address] [place], [place] [address] U Ratio Alb/Cre 18 mcg/mg Normal 0-30 [facility] ([place] Comment on above: Performed By: #### M ALBR #### [place] [address] [place], [place] [address] LABORATORYOrdered By: Dina Brooks on 06-20-2021 Adenovirus [...] notified. Results have been reported to the [facility]. FLUBV RNA TAB+non-probe Ql (Nph) Not [...] 12-24-2024 15:11-0400 Body temperature 98.5 [degF] Ranjith Josepkins QUALITY FACILITATOR-C Work Phone: [facility] 12-24-2024 15:11-0400 Diastolic blood pressure 85 mm[Hg] Ranjith Anuradha QUALITY FACILITATOR-C Work Phone: [facility] 12-24-2024 15:11-0400 Heart rate 97 /min Ranjith Ling QUALITY FACILITATOR-C Work Phone: [facility] 12-24-2024 15:11-0400 Respiratory rate 16 /min Ranjith Josepkins QUALITY FACILITATOR-C Work Phone: [facility] 12-24-2024 15:11-0400 SaO2% (BldA) [Mass fraction] 95 % Ranjith Josepkins QUALITY FACILITATOR-C Work Phone: [facility] 12-24-2024 15:11-0400 Systolic blood pressure 162 mm[Hg] Ranjith [place] QUALITY FACILITATOR-C Work Phone: [facility] 12-24-2024 12:07-0400 Body height 167.64 cm Ranjith Josepkins QUALITY FACILITATOR-C Work Phone: [facility] 12-24-2024 12:07-0400 Body mass index (BMI) [Ratio] 18.1 kg/m2 Ranjith Josepkins QUALITY FACILITATOR-C Work Phone: [facility] 12-24-2024 12:07-0400 Body weight 50.8 kg Ranjith [place] QUALITY FACILITATOR-C Work Phone: [facility] 12-22-2024 14:33-0400 Body mass index (BMI) [Ratio] 18.1 kg/m2 Ranjith Josepkins QUALITY FACILITATOR-C Work Phone: [facility] 12-22-2024 14:33-0400 Body temperature 98.6 [degF] Ranjith Josepkins QUALITY FACILITATOR-C Work Phone: [facility] 12-22-2024 14:33-0400 Body weight 50.91 kg Ranjith Josepkins QUALITY FACILITATOR-C Work Phone: [facility] 12-22-2024 14:33-0400 Diastolic blood pressure 65 mm[Hg] Ranjith Josepkins QUALITY FACILITATOR-C Work Phone: [facility] 12-22-2024 14:33-0400 Heart rate 103 /min Ranjith Josepkins QUALITY FACILITATOR-C Work Phone: [facility] 12-22-2024 14:33-0400 Respiratory rate 18 /min aRnjith Josepkins QUALITY FACILITATOR-C Work Phone: [facility] 12-22-2024 14:33-0400 SaO2% (BldA) [Mass fraction] 100 % Ranjith Josepkins QUALITY FACILITATOR-C Work Phone: [facility] 12-22-2024 14:33-0400 Systolic blood pressure 104 mm[Hg] Ranjith Anuradha QUALITY FACILITATOR-C Work Phone: [facility] 12-07-2024 15:00-0400 Diastolic blood pressure 72 mm[Hg] Ranjith Josepkins QUALITY FACILITATOR-C Work Phone: [facility] 12-07-2024 15:00-0400 Heart rate 78 /min Ranjith Josepkins QUALITY FACILITATOR-C Work Phone: [facility] 12-07-2024 15:00-0400 SaO2% (BldA) [Mass fraction] 98 % Ranjith [place] QUALITY FACILITATOR-C Work Phone: [facility] 12-07-2024 15:00-0400 Systolic blood pressure 131 mm[Hg] Ranjith Ling QUALITY FACILITATOR-C Work Phone: [facility] 12-07-2024 14:39-0400 Body temperature 97 [degF] Ranjith Ling QUALITY FACILITATOR-C Work Phone: [facility] 12-07-2024 14:39-0400 Respiratory rate 24 /min Ranjith Ling QUALITY FACILITATOR-C Work Phone: [facility] 12-07-2024 12:37-0400 Body height 1463.04 cm Ranjith Ling QUALITY FACILITATOR-C Work Phone: [facility] 12-07-2024 12:37-0400 Body mass index (BMI) [Ratio] 0 kg/m2 Ranjith Ling QUALITY FACILITATOR-C Work Phone: [facility] 12-07-2024 12:37-0400 Body weight 2.43 kg Ranjith Ling QUALITY FACILITATOR-C Work Phone: [facility] 08-22-2024 13:51-0400 Body temperature 98.91 [degF] To Alcaraz V BLOCK SAW OPERATOR.TILE SETTER APPRENTICE Work Phone: [facility] 08-22-2024 13:51-0400 Body weight 48.7 kg To Alcaraz V BLOCK SAW OPERATOR.TILE SETTER APPRENTICE Work Phone: [facility] 08-22-2024 13:51-0400 Diastolic blood pressure 68 mm[Hg] To Alcaraz V BLOCK SAW OPERATOR.TILE SETTER APPRENTICE Work Phone: [facility] 08-22-2024 13:51-0400 Heart rate 94 /min To Alcaraz V BLOCK SAW OPERATOR.TILE SETTER APPRENTICE Work Phone: [facility] 08-22-2024 13:51-0400 Respiratory rate 16 /min To Alcaraz V BLOCK SAW OPERATOR.TILE SETTER APPRENTICE Work Phone: [facility] 08-22-2024 13:51-0400 SaO2% (BldA) [Mass fraction] 95 % To Alcaraz V BLOCK SAW OPERATOR.TILE SETTER APPRENTICE Work Phone: [facility] 08-22-2024 13:51-0400 Systolic blood pressure 122 mm[Hg] To Jerry SARMIENTOTILE SETTER APPRENTICE Work Phone: [facility] 08-30-2023 13:47-0400 Body temperature 97.34 [degF] ARTURO WOMACKT DO [facility] 08-30-2023 13:47-0400 Diastolic Blood Pressure Non-Invasive 75 mm[Hg] ARTURO WOMACKT DO [facility] 08-30-2023 13:47-0400 Heart rate 100 /min ARTURO SHAIKH DO [facility] 08-30-2023 13:47-0400 Respiratory rate 20 /min ARTURO SHAIKH DO [facility] 08-30-2023 13:47-0400 Systolic Blood Pressure Non-Invasive 106 mm[Hg] ARTURO SHAIKH DO [facility] Encounters Encounter Date Encounter Type Care Provider Facility Start: 01-21-2025 ambulatory Ranjith Ling Facility:[facility] Start: 01-11-2025 End: 01-11-2025 ambulatory Ranjith Ling Facility:[facility] Start: 01-06-2025 ambulatory Ten Thornton ty:[facility] Start: 12-29-2024 End: 12-29-2024 ambulatory Ranjith Ling Facility:[facility] Start: 12-29-2024 End: 12-29-2024 ambulatory Ranjith Ling Facility:[facility] Start: 12-22-2024 End: 12-22-[address] Ten Nogueira MD -[facility] Work Phone: Start: 12-22-2024 End: 12-22-2024 ambulatory Ranjith Ling QUALITY FACILITATOR-C Work Phone: [facility] Start: 12-16-2024 End: 12-16-2024 ambulatory RANJITH LING V BLOCK SAW OPERATOR - TILE SETTER APPRENTICE Facility:[facility] Start: 12-16-2024 End: 12-16-2024 Patient encounter procedure RANJITH LING V BLOCK SAW OPERATOR - TILE SETTER APPRENTICE [facility] Start: 12-11-2024 ambulatory [facility] Facility :[facility] Start: 12-07-2024 End: 12-07-2024 Emergency department patient visit Ranjith Ling QUALITY FACILITATOR-C Work Phone: -Emergency Department Work Phone: Start: 11-26-2024 Non-patient / Non-visit Allegra Garcia [facility] Work Phone: Start: 11-26-2024 ambulatory Allegra Hylton Facility :[facility] Start: 11-24-2024 End: 11-28-2024 Outreach Lab RANJITH LING V BLOCK SAW OPERATOR - TILE SETTER APPRENTICE [facility] Start: 11-24-2024 End: 11-28-2024 ambulatory RANJITH LING V BLOCK SAW OPERATOR - TILE SETTER APPRENTICE Facility:[facility] Start: 11-24-2024 End: 11-24-2024 Patient encounter procedure RANJITH LING V BLOCK SAW OPERATOR - TILE SETTER APPRENTICE [facility] Start: 11-17-2024 End: 11-17-2024 ambulatory Ranjith Ling QUALITY FACILITATOR-C Work Phone: -[facility] Start: 11-17-2024 End: 11-17-[address] Jeronimo Perez MD -[facility] Work Phone: Start: 11-17-2024 End: 11-17-2024 ambulatory Jeronimo Perez Facility:[facility] Start: 08-25-2024 End: 08-28-2024 ambulatory RANJITH LING Facility:[facility] Start: 08-24-2024 End: 08-24-2024 Follow-up encounter Sole Villa V BLOCK SAW OPERATOR.TILE SETTER APPRENTICE Work Phone: [facility] Comment on above: Results Start: 08-22-2024 End: 08-22-2024 Office outpatient visit 25 minutes To Alcaraz V BLOCK SAW OPERATOR.TILE SETTER APPRENTICE Work Phone: [facility] Comment on above: UTI symptoms (Primar y Dx); Acute left flank pain Start: 08-22-2024 End: 08-22-2024 ambulatory RANJITH LING Facility:[facility] Start: 11-19-2023 End: 11-19-2023 Patient encounter procedure RANJITH LING V BLOCK SAW OPERATOR - TILE SETTER APPRENTICE [facility] Start: 08-30-2023 End: 08-30-2023 Emergency department patient visit ARTURO SHAIKH DO [facility] Start: 11-30-[address] JERONIMO PEREZ MD Fa cility:[facility] Start: 10-11-2022 Orders Only Melissa perez V BLOCK SAW OPERATOR.TILE SETTER APPRENTICE Work Phone: Pulmonary Medicine Comment on above: Tobacco use disorder (Primary Dx) Start: 09-30-2022 ambulatory RANJITH JOSEJose BENITES V BLOCK SAW OPERATOR - TILE SETTER APPRENTICE Facility:[facility] Start: 09-18-2022 End: 09-22-2022 ambulatory RANJITH LING V BLOCK SAW OPERATOR - TILE SETTER APPRENTICE Facility:[facility] Start: 01-10-2022 Telephone encounter Bonny Pena V BLOCK SAW OPERATOR.TILE SETTER APPRENTICE Work Phone: [facility] Comment on above: Results Start: 07-04-2021 End: 07-04-2021 Patient encounter procedure RAJNITH LING V BLOCK SAW OPERATOR - TILE SETTER APPRENTICE [facility] Start: 06-20-2021 End: 06-20-2021 Patient encounter procedure RANJITH LING V BLOCK SAW OPERATOR - TILE SETTER APPRENTICE [facility] Procedures Date Procedure Procedure Detail Performing Clinician Start: 12-29-2024 Calcium measurement Baldemar Ling QUALITY FACILITATOR-C Work Phone: Start: 12-29-2024 Estimated creatinine clearance Ranjith Ling QUALITY FACILITATOR-C Work Phone: Start: 12-24-2024 Parathyroid hormone measurement Ranjith Ling QUALITY FACILITATOR-C Work Phone: Start: 12-22-2024 Urnls dip stick/tabl et reagent auto microscopy Ranjith Ling QUALITY FACILITATOR-C Work Phone: Start: 12-22-2024 Folic acid measureme nt, RBC Ranjith Ling QUALITY FACILITATOR-C Work Phone: Comment on above: Performed at: [place] [id number] Director: Jeronimo Means PhD, Phone: [phone] Start: 12-22-2024 Immature reticulocyt e fraction Ranjith Ling QUALITY FACILITATOR-C Work Phone: Start: 12-22-2024 Serum inorganic phos phate measurement Ranjith Ling QUALITY FACILITATOR-C Work Phone: Start: 12-22-2024 Total iron binding capacity measurement Ranjith Ling QUALITY FACILITATOR-C Work Phone: Start: 12-22-2024 Urine culture Ranjith price QUALITY FACILITATOR-C Work Phone: Start: 12-07-2024 Estimated creatinine clearance Ranjith Ling QUALITY FACILITATOR-C Work Phone: Start: 11-17-2024 Endomysial antibody IgA level Ranjith Ling QUALITY FACILITATOR-C Work Phone: Start: 08-22-2024 Urnls dip stick/tabl et rgnt auto w/o microscopy To Alcaraz V BLOCK SAW OPERATOR.TILE SETTER APPRENTICE Work Phone: Plan of Treatment Date Care Activity Detail Author Start: 08-29-2033 Urine microalbumin profile DTaP,Tdap,Td Vaccine (3 - Td or Tdap) [facility] Start: 12-13-2031 RSV Vaccine (1 - 1-d ose 75+ series) RSV Vaccine (1 - 1-dose 75+ series) [facility] Start: 08-14-2025 Screening for malign ant neoplasm of colon [facility] Start: 01-06-2025 CT of thorax with contrast Chest WITH Contrast [facility] Start: 01-06-2025 Patient encounter procedure Registered Clinical -Cat Scan [facility] Work Phone: Start: 12-29-2024 Patient encounter procedure Registered Clinical -Laboratory Specimen Work Phone: Start: 12-29-2024 Registered Recurring Registered Recu rring -[facility] Start: 12-29-2024 End: 12-29-2024 Patient encounter procedure Lymphadenopathy -[facility] Work Phone: Start: 12-07-2024 [facility] Start: 11-02-2024 Influenza vaccination Influenz a Vaccine (Season Ended) [facility] Start: 03-04-2024 Advance Directive Discussion Advance Directive Discussion [facility] Start: 11-03-2023 Covid-19 Vaccine ( season) Covid-19 Vaccine ( season) [facility] Start: 11-02-2022 Influenza vaccination INFLUENZA (#1) [facility] Start: 03-04-2022 ADVANCE DIRECTIVE DISCUSSION ADVANCE DIRECTIVE DISCUSSION [facility] Start: 03-04-2022 DEPRESSION ASSESSMENT DEPRESSION ASS ESSMENT [facility] Start: 2021 ADVANCE DIRECTIVE DISCUSSION ADVANCE DIRECTIVE DISCUSSION [facility] Start: 2021 BONE DENSITY BONE DENSITY [facility] Start: 2021 Screening for osteoporosis Bone Density Screening [facility] Start: 11-02-2021 Influenza vaccination INFLUENZA (#1) [facility] Start: 03-04-2021 DEPRESSION ASSESSMENT DEPRESSION ASS ESSMENT [facility] Start: 09-13-2016 Pneumococcal Vaccine : 50+ (2 of 2 - PCV) Pneumococcal Vaccine: 50+ (2 of 2 - PCV) [facility] Start: 11-09-2015 Shingrix Vaccine (2 of 3) Shingrix Vaccine (2 of 3) [facility] Start: 2006 SHINGRIX VACCINE (1 of 2) SHINGRIX VACCINE (1 of 2) [facility] Start: 2001 COLOGUARD (FIT-DNA) COLOGUARD (FIT-D NA) [facility] Start: 2001 Colonoscopy COLONOSCOPY [facility] Start: 2001 COLORECTAL CANCER SCREENING COLORECTAL CANCER SCREENING [facility] Start: [address] COLONOGRAPHY [facility] Start: 2001 DIABETES SCREEN DIABETES SCREEN [facility] Start: 2001 Diabetes Screening Diabetes Screenin g [facility] Start: 2001 FECAL OCCULT BLOOD FECAL OCCULT BLOO D [facility] Start: 2001 Lipid panel Lipid Screening [facility] Start: 2001 LIPID SCREEN LIPID SCREEN [facility] Start: 2001 Screening for malign ant neoplasm of colon [facility] Start: 2001 SIGMOIDOSCOPY SIGMOIDOSCOPY [facility] Start: 1996 Mammography MAMMOGRAM [facility] Start: 1996 Screening for malign ant neoplasm of breast Mammogram Screening [facility] Start: 12-13-1975 Urine microalbumin profile DTAP,TDAP,TD (1 - Tdap) [facility] Start: 1974 Anxiety Screening Anxiety Screening [facility] Start: 1974 Depression Screening Depression Scre ening [facility] Start: 1974 HEPATITIS C SCREENING HEPATITIS C [facility] Start: 1974 Hepatitis C screening Hepatitis C [facility] Start: 1974 HIV SCREENING HIV SCREENING [facility] Start: 1962 PNEUMOCOCCAL: 65+ (1 - PCV) PNEUMOCOCCAL: 65+ (1 - PCV) [facility] Start: 06-12-1957 COVID-19 VACCINE (#1) COVID-19 VACCI NE (#1) [facility] Bacteria identified in Urine by Culture BACTERIAL CULTURE, URINE Microbiology Routine UTI symptoms Ordered: 08/22/2024 [facility] Work Phone: Comment on above: Ordered: 08/22/2024 Bacteria identified in Urine by Culture BACTERIAL CULTURE, URINE Microbiology Routine UTI symptoms Ordered: 08/24/2024 [facility] Work Phone: Comment on above: Ordered: 08/24/2024 Patient Education ED Abdominal P ain Unkn Cause Fem [facility] Work Phone: [facility] Immunizations Immunization Date Immunization Notes Care Provider Fa marjorienola 08-30-2023 tetanus toxoid, redu jocelyn diphtheria toxoid, and acellular pertussis vaccine, adsorbed ARTURO HAWA DO [facility] 12-28-2016 influenza virus vaccine, unspecified formulation To Alcaraz V BLOCK SAW OPERATOR.TILE SETTER APPRENTICE Work Phone: [facility] Payers Date Payer Category Payer Self-pay 2023 Unknown [id number] 2021 Private Health Insurance [id number] 2015 Private Health Insurance [id number] 1955 Unknown [id number] 2.16.8 [id number] 1955 Unknown [id number] 2.16.8 [id number] 1955 Unknown [id number] 2.16.8 [id number] 1955 Unknown [id number] 2.16.8 [id number] 1955 Unknown [id number] 2.16. [id number] 1955 Unknown [id number] 2.16. [id number] 1955 Unknown [id number] 2.16. [id number] 1955 Unknown [id number] 2.16. [id number] Unknown [id number] Unknown [id number] 2.16.8 40.1.512511.3.579.2.462 Unknown [id number] 2.16.8 40.1.645817.3.579.2.462 Unknown [id number] 2.16.8 40.1.891189.3.579.2.462 Unknown [id number] 2.16.8 40.1.711334.3.579.2.462 Unknown [id number] 2.16.8 40.1.208823.3.579.2.462 Unknown [id number] 2.16.8 40.1.207032.3.579.2.462 Unknown [id number] 2.16.8 40.1.424064.3.579.2.462 Unknown [id number] 2.16.8 40.1.518886.3.579.2.462 Unknown [id number] 2.16.8 40.1.687276.3.579.2.462 Unknown [id number] 2.16.8 40.1.465121.3.579.2.462 Unknown [id number] 2.16.8 [id number] Social History Date Type Detail Facility Start: 12-08-2018 Tobacco smoking status Heavy t obacco smoker (finding) [facility] Start: 1955 Sex Assigned At Female A [facility] Start: 07-04-2021 Tobacco smoking status Ex-smoker (fi nding) [facility] Start: 01-09-2022 End: 12-07-2024 Tobacco smoking status NHIS Smokes tobacco daily [facility] Work Phone: History of tobacco use Cigarette Smoker [facility] Work Phone: Start: 01-09-2022 Tobacco use and exposure Smokeless tobacco non-user [facility] Work Phone: Start: 1955 Sex Assigned At Not on file [facility] Start: 12-30-2021 End: 01-09-2022 Exposure to SARS-CoV-2 (event) Not sure [facility] Start: 01-09-2022 End: 08-22-2024 History of Social function [facility] Start: 01-09-2022 End: 08-22-2024 Tobacco use panel [facility] Start: 04-23-2023 End: 12-22-2024 Tobacco smoking status Light tobacco smoker (finding) [facility] Sexual Orientation [facility] Start: 01-26-2019 Sex Female (finding) [facility] NEGATED: Highlighted rowStart: NINF History of tobacco use Passive smoker [facility] Work Phone: Functional Status Date Assessment Result Facility 08-30-2023 Functional Status Independent [facility] 08-30-2023 Functional Status Standard Safet y ID band on, Call device within reach, Bed in low position, Wheels locked [facility] Mental Status Date Assessment Result Facility 12-24-2024 Cognitive function Awake [facility] Work Phone: 12-07-2024 Cognitive function Level Of Consciousness Awake [facility] Work Phone: 08-30-2023 Mental Status Orientation Oriented x 4 [facility] 08-30-2023 Mental Status [facility] Clinical Notes 06-20-2021 to 12-22-2024 Note Date & Type Note Facility 12-22-2024 Progress note [facility] 12-22-2024 Progress note Note Date/Time December 22, 2024 4:30pm [facility] [address] [place] [id number] OFFICE VISIT Date of Service: 12/22/24 1424 MR#: [id number] Acct: [id number] Name: ESTELLA MIRELES Rep #: [id number] : 1955 From: Ten hernandez MD Age/Sex: 69/F Location: [facility] Status: Signed HPI Subjective Date of Service [...] be 2.6 cm in axis. [facility] Medical History (Updated 12/22/24 @ 15:04 by [...] 1,250 mcg PO QMONTH BONE HEALTH 11/26/24 12/22/24 History mcg (50,000 unit) capsule lisinopril 10 1 tab PO QDAY BLOOD PRESSURE 11/26/24 12/22/24 History mg-hydrochlorothiazide 12.5 mg tablet vitamin B complex 1 tab PO QDAY FOR ENERGY 12/22/24 History mv-mn [id number]-[id number]-[id number] 1 tab PO DAILY SUPPLEMEN T 12/07/24 [...] no focal motor deficits Coordination / Balance: qlmqcl-yw-eerz test normal Speech: speech normal Gait (Neuro): [...] 5. Follow-up after above. Ten Nogueira MD Line Servicer, [facility] Divisions of Medical Oncology & Hematology Department of Internal Medicine [place] [phone] This note was generated using a voice [...] MD Cosigner Signature: Date (if applicable) CC: QUALITY FACILITATOREstephania Ling; Dr. Jeronimo Perez MD ~ [facility] Work Phone: 1(924) 210-602210-21-2025 Evaluation note* Diagnosis Onset Date Resolution Status Admit Date Anemia acute December 22, 2024 2:16pm Splenomegaly acute December 2:16pm Lymphadenopathy deleted December 032024 2:16pm Lymphadenopathy deleted December 032024 9:52am [facility] Work Phone: 1(801) 353-140010-06-2025 Discharge summary [facility] Medical Records Department [address] [place] [address] Emergency Department Summary 12/07/24 MR#: [id number] Acct: [id number] Name: ESTELLA MIRELES Rep #:[id number] : 1955 68 From: Crispin Subramanian [...] in for her pain. She was seenat [facility] physicians. Patient is scheduled for an MRI [...] tightness or heaviness. She denies dyspnea or [place] exertion. Denies orthopnea or PND. She does report swelling of her ankles recently. Patient has no history of alcohol use or cirrhosis. Prior similar symptoms: Yes Recent Illness/Hospitalization: Yes (Seen by PCP approximately 2 weeks ago. Hercreatinine at that time was ely) [facility] Medical History Depression Emphysema lung COPD (chronic obstructive pulmonary disease) Postmenopausal Lymph node enlargement IBS (irritable bowel syndrome) Positive colorectal cancer screening using Cologuard test Anemia Acute distention of stomach Abdominal pain Celiac disease Hypertension Vitamin D deficiency Splenomegaly Home Medications ?Medication ?Instructions ?Recorded ?Last Taken ?Type cholecalciferol (vitamin D3) 1,250 1,250 mcg PO [facility] 11/26/24 11/25/24 History mcg (50,000 unit) capsule lisinopril 10 1 tab PO QDAY BLOOD PRESSURE 11/26/24 12/07/24 History mg-hydrochlorothiazide 12.5 mg tablet vitamin B complex 1 tab PO QDAY FOR ENERGY 12/06/24 History mv-mn 554-[id number]-nw2-knr-ifg-aahi 1 tab PO DAILY SUPPLEMEN T 12/07/24 [...] (Auto) 63.7 Lymph % (Auto) 17.7 L [place] % (Auto) 15.3 H Eos % (Auto) [...] release (DR/EC) 40 mg PO DAILY mv-mn [id number]-xtf-[id number] [Centrum ] 1 tab PO DAILY Primary Care Provider: Ranjith Ling NP Referrals: Ranjith Ling NP, QUALITY FACILITATOR-C [Primary Care Provider, Family Practice] - 1-2 Weeks Activity Restrictions/Additional Instructions: Keep appointment for outpatient MRI. Print Language: Mauritanian Disposition Disposition: Home, Self Care Discharge Date/Time: 12/07/24 15:05 What to do if you have Problems For any increased pain, shortness of breath, bleeding, nausea or vomiting, chestpain, or any unexpected problems, contact your Primary Care Provider. Call [facility] ([phone]) or report tothe closest Emergency Room. Call 911 if necessary. 12/07/24 1525 Cosigner Signature (if applicable): CC: DAWIT-Morteza Ling ~ Signed [facility]10-06-2025 Discharge summary Author Crispin Subramanian [facility] Note Date/Time December 07, 2024 3: 05pm [facility] Medical Records Department [address] [place] [address] Emergency Department Summary 12/07/24 MR#: [id number] Acct: [id number] Name: ESTELLA MIRELES Rep #:[id number] : 1955 68 From: Crispin Subramanian MD PCP: DAVID Butler Sta tus:DEP ER Location: ED HPI History [...] in for her pain. She was seenat [facility] physicians. Patient is scheduled for an MRI [...] tightness or heaviness. She denies dyspnea or [place] exertion. Denies orthopnea or PND. She does report swelling of her ankles recently. Patient has no history of alcohol use or cirrhosis. Prior similar symptoms: Yes Recent Illness/Hospitalization: Yes (Seen by PCP approximately 2 weeks ago. Hercreatinine at that time was ely) [facility] Medical History Depression Emphysema lung COPD (chronic [...] PO QDAY FOR ENERGY 12/06/24 History mv-mn 391-[id number]-qi4-dpr-hdj-ogux 1 tab PO DAILY SUPPLEMEN T 12/07/24 [...] (Auto) 63.7 Lymph % (Auto) 17.7 L [place] % (Auto) 15.3 H Eos % (Auto) [...] release (DR/EC) 40 mg PO DAILY mv-mn 127-[id number]-jjw-[id number] [Centrum ] 1 tab PO DAILY Primary Care Provider: Ranjith Ling NP Referrals: Ranjith Ling NP, QUALITY FACILITATOR-C [Primary Care Provider, Family Practice] - 1-2 Weeks Activity Restrictions/Additional Instructions: Keep appointment for outpatient MRI. Print Language: Mauritanian Disposition Disposition: Home, Self Care Discharge Date/Time: 12/07/24 15:05 What to do if you have Problems For any increased pain, shortness of breath, bleeding, nausea or vomiting, chestpain, or any unexpected problems, contact your Primary Care Provider. Call [facility] ([phone]) or report to the closest Emergency Room. Call 911 if necessary. 12/07/24 1525 <Electronically signed by Crispin Subramanian MD> Cosigner Signature (if applicable): CC: DAVID Ling ~ Signed [facility] Work Phone: 1(914) 754-996209-23-2025 Evaluation + Plan note Diagnostic Tests Pending * Gliadin Antibody 11/24/24 * HEMAL Panel 11/24/24 * Tissue Transglutaminase Ab (IGA) 11/24/24 * Helicobacter Pylori Antibody 11/24/24 * B-5-Aymxtlmyttl 11/24/24 * TENZIN by IFA Screen 11/24/24 [...] w/ contrast 07/07/24 * MRI Liver 11/24/24 [facility] 09-23-2025 Evaluation + Plan note Future [...] w/ contrast 07/07/24 * MRI Liver 11/24/24 [facility] 06-23-2025 Telephone encounter Note* Telephone Encounter - Cammie Bay LPN - 08/24/2024 11:22 AM EDT Patient returned call and went over results, notes from express care provider with understanding. [facility]06-23-2025 Miscellaneous Notes* Telephone Encounter - Cammie [...] with PCP Please advise [facility] Telephone encounter Note * Telephone Encounter - Keyona Adams MA - 08/24/2024 7:39 AM EDT Left message for patient to return call. Keyona Adams MA [facility]06-23-2025 Telephone encounter Note* Telephone Encounter - [place] APRN.CNP - 08/24/2024 7:07 AM EDT Urine culture reveals mixed bacteria. This can occur during collection when skin contaminants are in the container. Recommend patient provide new specimen (order has been placed) Present to express care as nurse visit for a new urine sample Follow up with PCP Please advise [facility]06-21-2025 Instructions* Patient Instructions* To Alcaraz APRN.CNP [...] R10.9 - Increase fiber in diet - [place] low residue diet - IBUPROFEN 400 MG [...] any other concerning symptoms documented in this encounterProm[facility]-2025 NoteHNO ID: [id number] Author: TO ALCARAZ APRN.CNP Service: ? Author Type: Nurse Practitioner Type: Progress Notes Filed: 08/22/2024 14:21 Note Text: [facility] Subjective Kerry Mireles is a 68 year old female c/o [...] if pain severe or uncontrollable To Alcaraz APRN.TILE SETTER APPRENTICE -I have reviewed and updated with the [...] The patient was discharged. OTC Medications were advised:[facility]06-21-2025 History of Present illness Narrative* To Alcaraz APRN.PEDRO - 08/22/2024 2:02 PM EDT [facility] Garrett Kerry Mireles is a 68 year old female c/o [...] if pain severe or uncontrollable To Alcaraz APRN.PEDRO -I have reviewed and updated with the [...] OTC Medications were advised: documented in this [facility] Hospital Discharge instructions Patient Education 08/30/2023 [...] work areas and walkways clear and uncluttered. [phone] [employer] [address] [place] [address]. All rights reserved. This information is not intended as a substitute for professional medical care. Always follow yourhealthcare professional's instructions. Follow Up Care 08/30/2023 13:35:25 With:KONG TRIANA Address: [address] [place] [id number]- When:2-4 days With:RANJITH LING APRN, CNP Address: [address] [place] [id number]- When:2-4 days [facility] 06-28-2024 Note Discharge Instructions Thank you for allowing [facility] to assist you with your healthcare needs. The following is importantdischarge information regarding your hospital visit. Diagnosis from Today's Visit Fall What to Do Next Instructions from Your Care Team No qualifying data available. Post Acute Orders No qualifying data available. You Need to Schedule the Following Appointments Follow Up with KONG TRIANA When:Within 2-4 days Where:[address] [place] [id number]- Follow Up with RANJITH LING APRN - TILE SETTER APPRENTICE When:Within 2-4 days Where:[address] [place] [phone]- Allergies Avelox terbinafine Fatigue, Fever, Rash Immunizations [...] work areas and walkways clear and uncluttered. 1619-4725 [employer]. [address] [place] [address]. All rights reserved. This information is not intended as a substitute for professional medical care. Always follow yourhealthcare professional's instructions. Additional Information VACCINATE! IT SAVES LIVES! Members of the community who have not yet received the COVID-19 vaccine and would like to receive it can visit one of [facility] vaccine clinics. There are many vaccine clinic locations within the [facility]. For locations and available times, please visit [email or web address]/. It is important to note that some COVID mobile vaccine clinics are held outdoors and may be canceled in rainy or stormy conditions. To learn more about pediatric vaccinations (ages 5-11), we invite you to visit the [facility] webpage. https://www.[email or web address].org/pages/[email or web address]-Dsqvw-[email or web address]-[email or web address]-[email or web address] stions.htmlTo learn more about the COVID-19 vaccine, we invite you to visit the CDC website for a list of frequently asked questions. https://www.cdc.gov/coronavirus/2019-ncov/vaccines/faq.html [facility] Who@ Patient Portal Access Instructions: Stay connected with your healthcare team and access your personal medical information anytime with the [facility] Patient Portal. If you would like a full copy of your medical records please contact the [facility] Medical Records Department Saturday through Saturday between 8a.m. and 4:30p.m. Please follow the directions below to access the portal: 1.Access the email account you provided upon registration to the hospital.2.Look for an invitation email from [facility].3.Open the email and access the invitation link: Accept Invitation to [facility]4.Fill in the required viramontes to create your account. Sign into www.[employer] with your username and password that you [...] you will allow to register on the [facility] Patient Portal for access to your information. You can also access the [facility] Patient Portal on the [employer] ely. Simply click on Health Records under [employer] and then click on the [employer] logo. [...] Call your local pharmacy or go to [email or web address] to find one close to you.3.Make use of household items: Use cat litter or old coffee grounds to dispose medications if other options arenot available. Mix your drugs with these household products, seal them in an airtight container andthrow it into the garbage. Call [facility]: [phone] to be sure your drugs can be [...] been reviewed and explained to me and ICHI CYNTHIA understand my current condition and have read and understand these discharge instructions. I have received a written copy of the plan/instructions. If I have questions, I am aware that I should contact my doctor. Patient/Supervisor Treating And Pumping Signature: Date/Time: Relationship to Patient: Witness Name/Signature: Date/Time: [facility]06-28-2024 Note ORIGINAL EXAMINATION: CT OF THE [...] Reason for Exam: fall with headstrike FINDINGS: Weight Loss Sales Consultant (topogram) images: Unremarkable BRAIN/VENTRICLES: No evidence of [...] Date: 08/30/2023 3:13:29 PM Ordering Provider: HE[facility]11-09-2022 Miscellaneous Notes* Telephone Encounter - Bon King [...] ER. Bonny Pena APRN.CNP [facility] HCoV 229E RNA TAB+non- probe Ql (Nph)Not Detected *NA* (06/20/21 9:53 AM)AH Auto Viro/Sero SSEvaluation + Plan note Future Appointments Appointment Date:09/21/2021 10:30:00 AM Scheduled Provider: Location:[facility] Appointment Type:PC Nurse Lab Appointment Date:09/26/2021 01:40:00 PM Scheduled Provider:RANJITH LING APRN, CNP Location:[facility] Appointment Type: OV Follow Up Future Scheduled Tests Laboratory* Lipid Profile 09/25/21 * Vitamin D Level 09/25/21 * Complete Metabolic Panel 09/25/21 * Complete Metabolic Panel 07/24/20 Radiology* MA Mammo Screening Bilateral w/ Yoshi 03/28/21 [facility] Evaluation + Plan note Future Appointments Appointment Date:07/11/2021 01:40:00 PM Scheduled Provider:RANJITH LING APRN, CNP Location:[facility] Appointment Type:PC OV Appointment Date:09/21/2021 10:30:00 AM Scheduled Provider: Location:[facility] Appointment Type:PC Nurse Lab Appointment Date:09/26/2021 01:40:00 PM Scheduled Provider:RANJITH LING APRN, CNP [facility] Appointment Type:PC OV Follow Up Future [...] Chest 2 Views (PA & Lateral) 07/04/21 [facility] Evaluation + Plan note Future Appointments Appointment Date:10/22/2023 01:20:00 PM Scheduled Provider:RANJITH LING APRN, CNP Location:[facility] Appointment Type: Wellness Annual Future Scheduled [...] Low Dose Lung Cancer Screening (LDCT) 10/09/22 [facility] Evaluation + Plan note Future Appointments Appointment Date:11/26/2023 01:00:00 PM Scheduled Provider:RANJITH LING APRN, CNP Location:[facility] Appointment Type: Wellness Annual Future Scheduled Tests Laboratory* Complete Blood Count 03/21/23 * Albumin/Creatinine Ratio, Random Urine 03/21/23 * Vitamin D Level 03/21/23 * Complete Metabolic Panel 03/21/23 [facility] Evaluation + Plan note Future Appointments Appointment Date:12/17/2024 01:20:00 PM Scheduled Provider:RANJITH LING APRN, CNP Location:[facility] Appointment Type:PC OV Future Scheduled Tests [...] w/ contrast 07/07/24 * MRV Abdomen 12/03/24 [facility] Evaluation note* Diagnosis Tobacco use disorder- Primary documented in this encounter [facility] note* Diagnosis UTI symptoms- Primary Other symptoms involving urinary system Acute left flank pain Abdominal pain, unspecified site documented in this encounter [facility] note* Diagnosis UTI symptoms- Primary Other symptoms involving urinary system documented in this encounter [facility] noteNo assessment information availableWThe Christ Hospital Work Phone: Hospital course Narrative No data available for this section [facility] Hospital Discharge instructions No data available for this section [facility] Hospital Discharge instructionsAdditional Instructions Keep appointment for outpatient MRI.[facility] Work Phone: Hospital Discharge instructionsAmbulatory Orders* General Surgery Location: None [facility] Work Phone: Progress note No data available for this section [facility] Reason for referral (narrative)No reason for referral information availableWThe Christ Hospital Work Phone: Health Concerns Infection Onset [...] Do you have a Healthcare Power of Embedded Processor? No December 07, 2024 12:45pm Advance Directive Response Recorded Date/ Time Do you have a Healthcare Power of Embedded Processor? No December 07, 2024 11:45am Chief Complaint [...] Care Team (unrecognized sect ion and content) Toy Stuffer Relationship Specialty Start Date End Date Ranjith Ling, TILE SETTER APPRENTICE [address] [place] [address] PCP - General Family Medicine 01/09/22 Toy Stuffer Relationship Specialty Start Date End Date Ranjith Ling, TILE SETTER APPRENTICE [address] [place] [address] PCP - General Family Medicine 01/09/22 Toy Stuffer Relationship Specialty Start Date End Date Ranjith Ling, TILE SETTER APPRENTICE [address] [facility] [address] PCP - [facility] Medicine 01/09/22 Toy Stuffer Relationship Specialty Start Date End Date Ranjith Ling CNP [address] [facility] [address] PCP - [facility] Medicine 01/09/22 Team Status: Active Member Role/Relationship Status Dates Ranjith Ling QUALITY FACILITATOR, QUALITY FACILITATOR-C Primary care physicia n Active Team Status: Inactive Member Role/Relationship Status Dates Ranjith Ling QUALITY FACILITATOR, QUALITY FACILITATOR-C Primary care physician Active Start: November 17, 2024 End: November 17, 2024 Dr. Jeronimo Perez MD Attending physician Active Start: November 17, 2024 End: November 17, 2024 Dr. Jeronimo Perez MD Referring Provider Active Start: November 17, 2024 End: November 17, 2024 Team Status: Active Member Role/Relationship Status Dates Ranjith Ling QUALITY FACILITATOR, QUALITY FACILITATOR-C Primary care physician Active Start: November 26, 2024 Allegra Hylton Attending physician Active Start: November 26, 2024 Team Status: Inactive Member Role/Relationship Status Dates Ranjith Ling QUALITY FACILITATOR, QUALITY FACILITATOR-C Primary care physician Active Start: December End: December 07, 2024 Dr. Crispin Subramanian MD Emergency Department Physician Active Start: December 07, 2024 End: December 07, 2024 Team Status: Inactive Member Role/Relationship Status Dates Ranjith Ling QUALITY FACILITATOR, QUALITY FACILITATOR-C Primary care physician Active Start: December End: December 07, 2024 Dr. Crispin Subramanian MD Attending physician Active St art: December 07, 2024 End: December 07, 2024 Dr. Crispin Subramanian MD Emergency Department Physician Active Start: December 07, 2024 End: December 07, 2024 Team Status: Inactive Member Role/Relationship Status Dates Ranjith Ling NP, QUALITY FACILITATOR-C Primary care physician Active Start: December 222024 End: December 22, 2024 Ranjith Ling QUALITY FACILITATOR, QUALITY FACILITATOR-C Referring Provider Active Start: December 22, 2024 End: December 22, 2024 Dr. Ten Nogueira MD Attending physician Active Start: December 22, 2024 End: December 22, 2024 Team Status: Inactive Member Role/Relationship Status Dates Ranjith Ling QUALITY FACILITATOR, QUALITY FACILITATOR-C Primary care physician Active Start: December 292024 End: December 29, 2024 Ranjith Ling QUALITY FACILITATOR, QUALITY FACILITATOR-C Referring Provider Active Start: December 29, 2024 End: December 29, 2024 Dr. Cassy Diggs MD Attending physician Active Start: December 29, 2024 End: December 29, 2024 Team Status: Active Member Role/Relationship Status Dates Ranjith Ling QUALITY FACILITATOR, QUALITY FACILITATOR-C Primary care physician Active Start: December 292024 Dr. Ten Nogueira MD Attending physician Active Start: December 29, 2024 Dr. Ten Nogueira MD Referring Provider Active Start: December 29, 2024 Team Status: Active Member Role/Relationship Status Dates Ranjith Ling QUALITY FACILITATOR, QUALITY FACILITATOR-C Primary care physician Active Start: December 292024 Dr. Cassy Diggs MD Attending physician Active Start: December 29, 2024 Dr. Cassy Diggs MD Referring Provider Active Start: December 29, 2024 Team Status: Active Member Role/Relationship Status Dates Ranjith Ling QUALITY FACILITATOR, QUALITY FACILITATOR-C Primary care physician Active Start: January 062024 [...] or prosecute any alcohol or drug abuse patient.[facility] ClinicIn the event this information is protected by the Federal Confidentiality of Alcohol and Drug Abuse Patient Records regulations: The Federal rules restrict any use of the information to criminally investigate or prosecute any alcohol or drug abuse patient.[facility] HospitalIn the event this information is protected by the Federal Confidentiality of Alcohol and Drug Abuse Patient Records regulations: The Federal rules restrict any use of the information to criminally investigate or prosecute any alcohol or drug abuse patient.[facility] HospitalIn the event this information is protected by the Federal Confidentiality of Alcohol and Drug Abuse Patient Records regulations: The Federal rules restrict any use of the information to criminally investigate or prosecute any alcohol or drug abuse patient.[facility] Reason for Visit (unrecogniz ed section and content) Reason Comments Results Reason Comments Abdominal Pain left side abdominal back migrating into mid back x 1 week Reason Onset Date Comments Results 08/24/2024 INFORMATION SOURCE (unrecogn ized section and content) DATE CREATED AUTHOR 09/03/2023 [facility] DATE CREATED AUTHOR AUTHOR'S ORGANIZ ATION 08/24/2024 [facility] DATE CREATED AUTHOR AUTHOR'S ORGANIZ ATION 08/29/2024 [facility] DATE CREATED AUTHOR AUTHOR'S ORGANIZ ATION 12/21/2024 [facility] DATE CREATED AUTHOR AUTHOR'S ORGANIZ ATION 01/03/2025 [facility] DATE CREATED AUTHOR AUTHOR'S ORGANIZ ATION 01/13/2025 [facility] Goals (unrecognized section and content) Goals may [...] BE BASED ON THE PRIMARY CLINICAL RECORDS. C-Note [facility]. provides no warranty or guarantee of the accuracy or completeness of information in this document.
[2025-02-12] MEDS: Lidocaine 2% (20 ml mdv) 20 ML Vial (14:50)
[2025-02-12 15:10] VITALS: BP 97/49; PULSE 90; RESP 18; O2SAT 96
[2025-02-12 15:11] VITALS: BP 108/60; PULSE 85; RESP 18; O2SAT 97
== END | disposition home or self-care (01) ==
LOC: US 14:12
PROVIDERS: PCP Nurse Practitioner Family; Referring Provider Family Medicine Geriatric Medicine; Visit Provider Family Medicine Geriatric Medicine
DX: R18.8 Other ascites (principal)
CPT/HCPCS: 49083

== ENCOUNTER → 2025-02-19 | Outpatient (CLI) | payer OTHER, SELFPAY ==
--- NOTE | 2025-02-19 12:15 | US_ITS ---
PROCEDURE: ABDOMEN LIMITED 02/19/2025 REASON FOR EXAM: ASCITES TECHNIQUE: Procedure Code: USABDL Modality: US Procedure: ABDOMEN LIMITED FINDINGS: The patient presented for paracentesis. Imaging of the abdomen, including 4 quadrant ascites check, demonstrates only a small amount of ascitic fluid, too small to warrant therapeutic abdominal paracentesis. US/Abdomen Limited IMPRESSION: Small amount of ascites, too small to warrant therapeutic abdominal paracentesi s. Reading Location: [place] [address]
== END | disposition home or self-care (01) ==
LOC: US 12:13
PROVIDERS: PCP Nurse Practitioner Family; Referring Provider Family Medicine Geriatric Medicine; Visit Provider Family Medicine Geriatric Medicine
DX: R18.8 Other ascites (principal)
CPT/HCPCS: 76705